=== PATIENT | female | born 1975 | race Caucasian/White ===

== ENCOUNTER 2020-04-13 10:47 | Outpatient (REF) | payer OTHER, SELFPAY ==
--- NOTE | ~2020-04-13 | MM_ITS ---
EXAMINATION: MM SCREENING DIGITAL BREAST TOMOSYNTHESIS, BILATERAL CLINICAL INFORMATION: Screening. Asymptomatic. The lifetime risk of breast cancer based on the Tyrer-Cuzick Model is 7%. COMPARISON: Mammography: 03/17/2019, 11/26/2017, 10/31/2016; targeted left breast ultrasound 03/23/2019. TECHNIQUE: Digital breast tomosynthesis is performed in both the craniocaudal and mediolateral oblique views along with computer-aided detection (CAD). Synthesized 2D images are generated from the tomosynthesis. Additional bilateral CC views are provided. FINDINGS: There are scattered areas of fibroglandular density (ACR BI-RADS breast composition Category b). There are no significant masses, abnormal calcifications, or other abnormalities. The left posterior inferior medial intradermal lesion noted on prior imaging is no longer demonstrated. The axilla and skin contours are unremarkable. MM/MM tomosynthesis screening BI IMPRESSION: No mammographic evidence of malignancy. ASSESSMENT: BI-RADS 1: Negative RECOMMENDATION: Routine annual mammography screening. This patient's information was entered into a reminder system with a target due date for their next mammogram.
== END 2020-04-13 10:48 | disposition home or self-care (01) ==
LOC: HO.MAMMO 10:47
PROVIDERS: PCP Internal Medicine; Visit Provider Internal Medicine
DX: Z12.31 Encounter for screening mammogram for malignant neoplasm of breast (principal)
CPT/HCPCS: 77063; 77067

== ENCOUNTER 2020-05-26 12:44 | Outpatient (REF) | payer OTHER, SELFPAY ==
[2020-05-26 13:43] LABS: Anion Gap 13 (12-20); Blood Urea Nitrogen 13 mg/dL (9-16); Calcium 8.9 mg/dL (8.4-10.2); Carbon Dioxide 24 mmol/L (22-29); Chloride 107 mmol/L (96-108); Estimated Glomerular Filt Rate > 60; Potassium 4.6 mmol/L (3.3-5.1); Sodium 139 mmol/L (135-145)
[2020-05-26 13:53] LABS: Glucose Urine UA NEG (NEG); Leukocyte Esterase Urine NEG (NEG); Nitrite Urine NEG (NEG); Specific Gravity - Urine 1.025 (1.005-1.025); Urine Blood 3+ (NEG); Urine Ketones NEG (NEG); Urine Protein 1+ MG/DL (NEG-TRACE)
[2020-05-26 14:06] LABS: Appearance Urine TURBID; Color Urine YELLOW; Thyroid Stimulating Hormone 0.72 uIU/mL (0.32-4.0)
[2020-05-26 14:25] LABS: Creatinine Urine 234.08 mg/dL; Protein/Creatinine Ratio, Ur 0.09 (<0.2); Total Protein Urine Random 20 mg/dL (<12)
[2020-05-26 14:47] LABS: Mucus Urine 2+ /LPF; Squamous Epithelial Cell Urine 3+ /LPF; WBC Urine 0 /HPF (0-4)
== END 2020-05-26 12:45 | disposition home or self-care (01) ==
LOC: HO.LAB 12:44
PROVIDERS: PCP Internal Medicine; Visit Provider Internal Medicine Hypertension Specialist
DX: I10 Essential (primary) hypertension (principal)
CPT/HCPCS: 36415; 80051; 81001; 82310; 82565; 84156; 84443; 84520

== ENCOUNTER 2020-06-05 19:16 | Emergency (ER) | payer OTHER, SELFPAY ==
--- NOTE | 2020-06-05 | ECG_ITS ---
Test Reason : HEADACHE Blood Pressure : / mmHG Vent. Rate : 071 BPM Atrial Rate : 071 BPM P-R Int : 136 ms QRS Dur : 080 ms QT Int : 386 ms P-R-T Axes : 033 022 034 degrees QTc Int : 419 ms Normal sinus rhythm Normal ECG When compared with ECG of 14-APR-2017 18:59, Nonspecific T wave abnormality no longer evident in Lateral leads Referred By: Generic ED Physician Electronically Signed By:Dg Flores
[2020-06-05 19:41] VITALS: BP 155/73; PULSE 75; RESP 18; TEMP 36.9; O2SAT 98; BMI 35.1
[2020-06-05 23:36] VITALS: BP 135/88; PULSE 62; RESP 16; O2SAT 98
--- NOTE | 2020-06-05 23:39 | ED.GENADULT ---
HPI - General Adult General Chief complaint: General Medical Stated complaint: headache Time Seen by Provider: 06/05/20 22:52 Source: patient Mode of arrival: ambulatory Limitations: no limitations History of Present Illness HPI narrative: Patient history of hypertension well controlled , took Alejandro Alejandro vaccine on 05/28 since today morning patient noticed burning sensation all over the body no weakness no abnormal movements no loss of sensation no history of anxiety Onset (ago): day(s) (1) Related Data Allergies Allergy/AdvReac Type Severity Reaction Status Date / Time morphine [MORPHINE] Allergy Intermediate PAPLITATIONS, Unverified 11/05/19 15:31 increased heart rate Review of Systems Review of Systems: Constitutional : No Weight loss, No Fever, No Chills ENT/Mouth : No sore throat, No Rhinorrhea Eyes: No Eye Pain, No Swelling Cardiovascular : No Chest Pain, no palpitations Respiratory : No Cough, No Sputum, no shortness of breath Gastrointestinal : no Nausea, No Vomiting, No Diarrhea, No abdominal Pain, no black stools Genitourinary : No Dysuria, No Urinary Frequency Musculoskeletal : No joint pain, No Myalgias, No Joint Swelling Skin : No Skin Lesions, No rash Neuro : No Weakness, No Numbness, No Dizziness, No Headache Psych : No Anxiety/Panic, No Depression Heme/Lymph: No Bruising, No Lymphadenopathy Endocrine : No Polyuria, No Polydipsia All other systems reviewed and are negative [facility] Past Medical History Medical History HTN (hypertension) Social History Social History Advance Directives: No Advance Directives Information Provided: No Physical Exam Vital Signs: Vital Signs: Last Vital Signs Temp 98.4 F 06/05/20 19:41 Pulse 62 06/05/20 23:36 Resp 16 06/05/20 23:36 BP 135/88 06/05/20 23:36 Pulse Ox 98 06/05/20 23:36 Body Mass Index 35.1 Appearance: Alert. Oriented X3. No acute distress. Eyes: Pupils equal, round and reactive to light. ENT: Pharynx normal. Neck: Normal inspection. Neck supple. CVS: Normal heart rate and rhythm. Pulses normal. Respiratory: No respiratory distress. Breath sounds normal. Abdomen: Soft and nontender. Bowel sounds are present, no mass palpable, no CVA tenderness Skin: Skin warm and dry. Normal skin color. Normal skin turgor. Extremities: No lower extremity edema. No calf tenderness Neuro: Oriented X 3. No motor deficit. No sensory deficit. No cerebellar signs no abnormal movements Medical Decision Making MDM Narrative Medical decision making narrative: Patient nonspecific paresthesia without any objective findings no motor or sensory loss etiology not very clear possible anxiety patient advised to follow with his Lab Data Lab results reviewed: Yes I reviewed the patient's lab results. Result diagrams: 06/05/20 23:45 06/05/20 23:45 Labs: Lab Results 06/05/20 06/05/20 Range/Units 23:45 23:45 WBC 11.1 H (4.8-10.8) X10*3/uL RBC 4.77 (4.20-5.50) X10*6/uL Hgb 13.2 (12.0-16.0) g/dl Hct 40.6 (37-47) % MCV 85.1 (80-98) fL MCH 27.7 (27.0-33.0) pg MCHC 32.5 (31.0-35.0) g/dl RDW 14.1 (11.0-16.0) % Plt Count 275 (160-400) X10*3/uL MPV 9.3 L (9.4-12.3) fL Immature Gran % (Auto) 0.2 (0.0-0.4) % Neut % (Auto) 56.6 (45-73) % Lymph % (Auto) 37.3 (20-40) % [place] % (Auto) 5.3 (2-11) % Eos % (Auto) 0.2 (0-4) % Baso % (Auto) 0.4 (0-2) % Lymph # (Auto) 4.2 (1.2-4.9) X10*3/uL [place] # (Auto) 0.6 (0.1-1.2) X10*3/uL Eos # (Auto) 0.0 (0.0-0.4) X10*3/uL Baso # (Auto) 0.1 (0.0-0.2) X10*3/uL Abs Immat Gran (auto) 0.02 (0.00-0.03) X10*3/uL Absolute Neuts (auto) 6.3 (2.0-8.3) X10*3/uL Absolute Nucleated RBC 0.000 (0.0-0.012) X10*3/uL Nucleated RBC % (auto) 0.0 (0.0-0.2) /100WBC Sodium 141 (135-145) mmol/L Potassium 4.1 (3.3-5.1) mmol/L Chloride 105 (96-108) mmol/L Carbon Dioxide 26 (22-29) mmol/L Anion Gap 14 (12-20) BUN 14 (9-16) mg/dL Creatinine 0.84 (0.5-1.4) mg/dL Estim Creat Clear Calc 87.6 Estimated GFR > 60 Random Glucose 97 (60-115) mg/dL Calcium 9.7 D (8.4-10.2) mg/dL Magnesium 2.2 (1.6-2.6) mg/dL Total Bilirubin 0.4 (0.0-1.0) mg/dL AST 15 (5-31) U/L ALT 25 (0-31) U/L Alkaline Phosphatase 57 (39-117) U/L Total Protein 7.3 (6.5-8.0) g/dL Albumin 4.7 (3.5-5.0) g/dL Discharge Plan Discharge Clinical Impression: Paresthesia Patient Disposition: Home, Self-Care Instructions: Paresthesia (ED) Additional Instructions: Cause of your paraesthesia is not very clear, your blood blood workup is negative, please follow-up with your PCP
[2020-06-05 23:51] LABS: Basophils Absolute Auto 0.1 X10*3/uL (0.0-0.2); Basophils Percent Auto 0.4 % (0-2); Eosinophils Percent Auto 0.2 % (0-4); Hematocrit 40.6 % (37-47); Hemoglobin 13.2 g/dl (12.0-16.0); Imm Gran Abs Auto 0.02 X10*3/uL (0.00-0.03); Imm Gran Pct Auto 0.2 % (0.0-0.4); Lymphocytes Absolute Auto 4.2 X10*3/uL (1.2-4.9); Lymphocytes Percent Auto 37.3 % (20-40); MANUAL DIFF FLAG NO; Mean Corpuscular HGB Conc 32.5 g/dl (31.0-35.0); Mean Corpuscular Hemoglobin 27.7 pg (27.0-33.0); Mean Corpuscular Volume 85.1 fL (80-98); Mean Platelet Volume 9.3 fL (9.4-12.3); Monocytes Absolute Auto 0.6 X10*3/uL (0.1-1.2); Monocytes Percent Auto 5.3 % (2-11); Neutrophils Absolute Auto 6.3 X10*3/uL (2.0-8.3); Neutrophils Percent Auto 56.6 % (45-73); Platelet Count 275 X10*3/uL (160-400); Red Blood Count 4.77 X10*6/uL (4.20-5.50); Red Cell Distribution Width 14.1 % (11.0-16.0); White Blood Count 11.1 X10*3/uL (4.8-10.8)
[2020-06-06 00:25] LABS: Alanine Aminotransferase 25 U/L (0-31); Albumin Level 4.7 g/dL (3.5-5.0); Alkaline Phosphatase 57 U/L (39-117); Anion Gap 14 (12-20); Aspartate Amino Transferase 15 U/L (5-31); Bilirubin Total 0.4 mg/dL (0.0-1.0); Blood Urea Nitrogen 14 mg/dL (9-16); Calcium 9.7 mg/dL (8.4-10.2); Carbon Dioxide 26 mmol/L (22-29); Chloride 105 mmol/L (96-108); Creatinine Clr Calc Pharmacy 87.6; Estimated Glomerular Filt Rate > 60; Glucose Random 97 mg/dL (60-115); Magnesium 2.2 mg/dL (1.6-2.6); Potassium 4.1 mmol/L (3.3-5.1); Sodium 141 mmol/L (135-145); Total Protein 7.3 g/dL (6.5-8.0)
== END 2020-06-06 01:35 | disposition home or self-care (01) ==
PROVIDERS: Emergency Provider Internal Medicine; PCP Internal Medicine
DX: R20.2 Paresthesia of skin (principal); I10 Essential (primary) hypertension
CPT/HCPCS: 36415; 80053; 83735; 85025; 93005; 99283; 99284

== ENCOUNTER 2020-09-08 10:18 | Outpatient (REF) | payer OTHER, SELFPAY ==
--- NOTE | ~2020-09-08 | XR_ITS ---
EXAMINATION: XR KNEE, RIGHT CLINICAL INFORMATION: Right knee pain COMPARISON: 09/14/2010 TECHNIQUE: Four views of the right knee. This includes AP upright view. FINDINGS: No fracture or subluxation. Compartmental joint spaces are maintained. Enthesophyte formation of the patella. No joint effusion. The soft tissues are unremarkable. XR/XR knee RT 4V IMPRESSION: Patellar enthesophyte. Otherwise unremarkable appearance of the knee.
== END 2020-09-08 10:19 | disposition home or self-care (01) ==
LOC: HO.XRAY 10:18
PROVIDERS: PCP Internal Medicine; Visit Provider Internal Medicine
DX: M25.561 Pain in right knee (principal)
CPT/HCPCS: 73564

== ENCOUNTER 2020-11-02 12:58 | Outpatient (RCR) | payer OTHER, SELFPAY | END 2021-01-03 08:27 | disposition home or self-care (01) | LOC: HO.PT 12:58 | PROVIDERS: PCP Internal Medicine; Visit Provider Internal Medicine | DX: M25.561 Pain in right knee (principal) | CPT/HCPCS: 97110; 97162 ==

== ENCOUNTER → 2020-11-04 13:49 | Outpatient (BNVA) | payer OTHER, SELFPAY | PROVIDERS: Visit Provider Physician Assistant | DX: M22.2X1 Patellofemoral disorders, right knee (principal) | CPT/HCPCS: 20610; 99202; J1040 ==

== ENCOUNTER 2020-12-08 21:53 | Emergency (ER) | payer OTHER, SELFPAY ==
[2020-12-08 22:02] VITALS: BP 133/89; PULSE 75; RESP 16; TEMP 36.4; O2SAT 99; BMI 35.3
--- NOTE | 2020-12-08 22:06 | ECG_ITS ---
Test Reason : CHEST PAIN Blood Pressure : / mmHG Vent. Rate : 070 BPM Atrial Rate : 070 BPM P-R Int : 140 ms QRS Dur : 084 ms QT Int : 398 ms P-R-T Axes : 032 014 016 degrees QTc Int : 429 ms Normal sinus rhythm Normal ECG No significant changes seen Referred By: Generic ED Physician Electronically Signed By:JACEY REILLY MD
[2020-12-08 22:30] LABS: COVID-19 Test Negative (Negative)
--- NOTE | 2020-12-08 22:42 | PC.NURSE ---
patient A+Ox4. NSR on tele. VSS. Resting safely.
--- NOTE | 2020-12-08 22:44 | ED_ITS ---
HPI - Chest Pain General Chief Complaint: Chest Pain Stated Complaint: Chest pressure Time Seen by Provider: 12/08/20 22:44 Source: patient Mode of arrival: ambulatory Limitations: no limitations History of Present Illness HPI narrative: Patient has significant history of hypertension under lot of stress lately been having left-sided chest pain for last 3 days comes and goes feel like pressure increased on palpation made comes pain last for few minutes no shortness of breath no dizziness no diaphoresis no fever or chills Related Data Home Medications Medication Instructions Recorded Confirmed lisinopril 2.5 mg tablet 2.5 mg PO DAILY 11/04/20 metoprolol tartrate 25 mg tablet 12.5 mg PO BID 11/04/20 Previous Rx's Medication Instructions Recorded naproxen 500 mg tablet 500 mg PO BID PRN 30 Days #60 tab 11/10/20 ibuprofen 600 mg tablet 600 mg PO Q6H PRN #20 tab 12/08/20 Allergies Allergy/AdvReac Type Severity Reaction Status Date / Time morphine [MORPHINE] Allergy Intermediate PAPLITATIONS, Verified 11/04/20 13:52 increased heart rate Review of Systems Review of Systems: Yes all other systems are reviewed and are negative [facility] Past Medical History Medical History HTN (hypertension) Social History Social History Advance Directives: No Advance Directives Information Provided: No Patient : No Current occupational status: unemployed 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 Oriented X3. No acute distress. ENT: Pharynx normal. Oral Mucosa moist Neck: Normal inspection. Neck supple. CVS: Normal heart rate and rhythm. Pulses normal. Left 2nd intercostal space tenderness Respiratory: No respiratory distress. Equal air entry bilateral, no wheezing/rales/rhonchi Abdomen: Soft and nontender. Bowel sounds are present, no mass palpable, no CVA tenderness Skin: Skin warm and dry. Normal skin color. Normal skin turgor. Extremities: No lower extremity edema. No calf tenderness Neuro: Oriented X 3. MDM - Chest Pain Lab Data Attestation: I reviewed the patient's lab results. Result diagrams: 12/08/20 22:55 12/08/20 22:55 Labs: Lab Results 12/08/20 12/08/20 12/08/20 Range/Units 22:10 22:55 22:55 WBC 9.7 (4.8-10.8) X10*3/uL RBC 4.24 (4.20-5.50) X10*6/uL Hgb 12.1 (12.0-16.0) g/dl Hct 35.0 L (37-47) % MCV 82.5 (80-98) fL MCH 28.5 (27.0-33.0) pg MCHC 34.6 (31.0-35.0) g/dl RDW 14.6 (11.0-16.0) % Plt Count 278 (160-400) X10*3/uL MPV 9.2 L (9.4-12.3) fL Immature Gran % (Auto) 0.2 (0.0-0.4) % Neut % (Auto) 59.1 (45-73) % Lymph % (Auto) 33.9 (20-40) % [place] % (Auto) 6.3 (2-11) % Eos % (Auto) 0.0 (0-4) % Baso % (Auto) 0.5 (0-2) % Lymph # (Auto) 3.3 (1.2-4.9) X10*3/uL [place] # (Auto) 0.6 (0.1-1.2) X10*3/uL Eos # (Auto) 0.0 (0.0-0.4) X10*3/uL Baso # (Auto) 0.1 (0.0-0.2) X10*3/uL Abs Immat Gran (auto) 0.02 (0.00-0.03) X10*3/uL Absolute Neuts (auto) 5.7 (2.0-8.3) X10*3/uL Absolute Nucleated RBC 0.000 (0.0-0.012) X10*3/uL Nucleated RBC % (auto) 0.0 (0.0-0.2) /100WBC Sodium 139 (135-145) mmol/L Potassium 3.7 (3.3-5.1) mmol/L Chloride 110 H (96-108) mmol/L Carbon Dioxide 19 L (22-29) mmol/L Anion Gap 14 (12-20) BUN 14 (9-16) mg/dL Creatinine 0.80 (0.5-1.4) mg/dL Estim Creat Clear Calc 92.1 Estimated GFR > 60 Random Glucose 91 (60-115) mg/dL Calcium 9.0 D (8.4-10.2) mg/dL Troponin I High Sens (<3.5-17.0) ng/L COVID-19 ([facility]) Negative (Negative) COVID-19 Clin Com See Note 12/08/20 Range/Units 22:55 WBC (4.8-10.8) X10*3/uL RBC (4.20-5.50) X10*6/uL Hgb (12.0-16.0) g/dl Hct (37-47) % MCV (80-98) fL MCH (27.0-33.0) pg MCHC (31.0-35.0) g/dl RDW (11.0-16.0) % Plt Count (160-400) X10*3/uL MPV (9.4-12.3) fL Immature Gran % (Auto) (0.0-0.4) % Neut % (Auto) (45-73) % Lymph % (Auto) (20-40) % [place] % (Auto) (2-11) % Eos % (Auto) (0-4) % Baso % (Auto) (0-2) % Lymph # (Auto) (1.2-4.9) X10*3/uL [place] # (Auto) (0.1-1.2) X10*3/uL Eos # (Auto) (0.0-0.4) X10*3/uL Baso # (Auto) (0.0-0.2) X10*3/uL Abs Immat Gran (auto) (0.00-0.03) X10*3/uL Absolute Neuts (auto) (2.0-8.3) X10*3/uL Absolute Nucleated RBC (0.0-0.012) X10*3/uL Nucleated RBC % (auto) (0.0-0.2) /100WBC Sodium (135-145) mmol/L Potassium (3.3-5.1) mmol/L Chloride (96-108) mmol/L Carbon Dioxide (22-29) mmol/L Anion Gap (12-20) BUN (9-16) mg/dL Creatinine (0.5-1.4) mg/dL Estim Creat Clear Calc Estimated GFR Random Glucose (60-115) mg/dL Calcium (8.4-10.2) mg/dL Troponin I High Sens < 3.5 (<3.5-17.0) ng/L COVID-19 ([facility]) (Negative) COVID-19 Clin Com ECG Data ECG #1: Attestation: I personally reviewed and interpreted this ECG as follows: Interpretation: Normal sinus rhythm heart rate 71 beats per minute no acute ST T wave changes no acute ischemia Discharge Plan Discharge Clinical Impression: Costalchondritis, Anxiety Patient Disposition: Home, Self-Care Instructions: Costochondritis (ED), Anxiety (ED) Additional Instructions: Take pain Medication as advised continue anxiety medication at night Prescriptions: New ibuprofen 600 mg tablet 600 mg PO Q6H PRN (Reason: pain) Qty: 20 RF: 0 No Action naproxen 500 mg tablet 500 mg PO BID PRN (Reason: pain) 30 Days Qty: 60 RF: 0 Interventions: ED Discharge Assessment Last Done: 12/08/20 23:30 Discharge Date/Time: 12/08/20 23:30
[2020-12-08 23:01] LABS: MANUAL DIFF FLAG NO
[2020-12-08 23:03] LABS: Basophils Absolute Auto 0.1 X10*3/uL (0.0-0.2); Basophils Percent Auto 0.5 % (0-2); Hemoglobin 12.1 g/dl (12.0-16.0); Imm Gran Abs Auto 0.02 X10*3/uL (0.00-0.03); Imm Gran Pct Auto 0.2 % (0.0-0.4); Lymphocytes Absolute Auto 3.3 X10*3/uL (1.2-4.9); Lymphocytes Percent Auto 33.9 % (20-40); Mean Corpuscular HGB Conc 34.6 g/dl (31.0-35.0); Mean Corpuscular Hemoglobin 28.5 pg (27.0-33.0); Mean Corpuscular Volume 82.5 fL (80-98); Mean Platelet Volume 9.2 fL (9.4-12.3); Monocytes Absolute Auto 0.6 X10*3/uL (0.1-1.2); Monocytes Percent Auto 6.3 % (2-11); Neutrophils Absolute Auto 5.7 X10*3/uL (2.0-8.3); Neutrophils Percent Auto 59.1 % (45-73); Platelet Count 278 X10*3/uL (160-400); Red Blood Count 4.24 X10*6/uL (4.20-5.50); Red Cell Distribution Width 14.6 % (11.0-16.0); White Blood Count 9.7 X10*3/uL (4.8-10.8)
[2020-12-08 23:15] LABS: Anion Gap 14 (12-20); Blood Urea Nitrogen 14 mg/dL (9-16); Carbon Dioxide 19 mmol/L (22-29); Chloride 110 mmol/L (96-108); Creatinine Clr Calc Pharmacy 92.1; Estimated Glomerular Filt Rate > 60; Glucose Random 91 mg/dL (60-115); Potassium 3.7 mmol/L (3.3-5.1); Sodium 139 mmol/L (135-145)
[2020-12-08 23:23] LABS: Troponin-I High Sensitivity < 3.5 ng/L (<3.5-17.0)
[2020-12-08] MEDS: Ibuprofen 600 MG TABLET PO (23:49)
== END 2020-12-08 23:30 | disposition home or self-care (01) ==
PROVIDERS: Emergency Provider Internal Medicine; PCP Internal Medicine
DX: M94.0 Chondrocostal junction syndrome [Tietze] (principal); F41.1 Generalized anxiety disorder; F43.0 Acute stress reaction; R07.89 Other chest pain; I10 Essential (primary) hypertension; Z20.822 Contact with and (suspected) exposure to COVID-19; Z79.899 Other long term (current) drug therapy
CPT/HCPCS: 36415; 80048; 84484; 85025; 87635; 93005; 99283

== ENCOUNTER 2021-04-07 09:36 | Outpatient (REF) | payer OTHER, SELFPAY ==
--- NOTE | ~2021-04-07 | CT_ITS ---
EXAMINATION: CT HEAD WITHOUT CONTRAST CLINICAL INFORMATION: Headache COMPARISON: Previous head CT May 2015 TECHNIQUE: Contiguous axial imaging was performed from the skull base to vertex without intravenous administration of contrast. This CT examination was performed using dose optimization techniques as appropriate, variously including the following: *Automated exposure control *Adjustment of mA and/or kV according to patient size (this includes techniques or standardized protocols for targeted exams where dose is matched to indication/reason for exam; i.e. extremities or head) *Use of iterative reconstruction technique DLP: 7-0 mGy-cm FINDINGS: There is no evidence of acute intracranial hemorrhage or territorial infarction. No abnormal mass effect or midline shift is seen. Isaac to white matter differentiation is well preserved. No extra-axial fluid collections are identified. The ventricles are normal in size. There is no abnormal attenuation within the brain parenchyma. The osseous structures and soft tissues are normal. The mastoid air cells and visualized portions of the paranasal sinuses are well aerated. CT/CT head/brain wo con IMPRESSION: Unremarkable exam..
== END 2021-04-07 09:37 | disposition home or self-care (01) ==
LOC: HO.CT 09:36
PROVIDERS: PCP Internal Medicine; Visit Provider Internal Medicine
DX: G44.89 Other headache syndrome (principal)
CPT/HCPCS: 70450

== ENCOUNTER 2021-07-25 18:49 | Emergency (ER) | payer OTHER, SELFPAY ==
--- NOTE | ~2021-07-25 | US_ITS ---
EXAMINATION: US ABDOMEN LIMITED CLINICAL INFORMATION: Right upper quadrant pain. COMPARISON: Previous renal ultrasound May [address] of the abdomen and pelvis March 2016. TECHNIQUE: Real-time imaging of the right upper quadrant abdominal viscera. FINDINGS: PANCREAS: Not well visualized. LIVER: The liver is normal in size. The liver contour is normal. Parenchymal echogenicity is increased. No focal hepatic lesion. There is no intrahepatic biliary duct dilatation seen. GALLBLADDER: Normal. The gallbladder is physiologically distended without evidence of stones, sludge, polyps, wall thickening or pericholecystic fluid. COMMON BILE DUCT: Normal in caliber measuring 0.4 cm in diameter. RIGHT KIDNEY: There is a 0.7 x 0.6 x 0.7 cm echogenic lesion in the cortex of the upper pole of the right kidney questionable for an angiomyolipoma. No hydronephrosis. No renal calculi or focal parenchymal lesions. Previously identified right renal stones are not appreciated. The kidney measures 11 cm in maximum dimension. FREE FLUID: None. US/US abdomen limited IMPRESSION: Echogenic liver. Normal-appearing gallbladder. A 7 mm echogenic lesion in the upper pole of the right kidney questionable for an angiomyolipoma. Previously identified right renal stones are not appreciated.
[2021-07-25 18:54] VITALS: BP 162/98; PULSE 99; O2SAT 98
[2021-07-25 18:55] VITALS: BP 125/73; PULSE 76; RESP 16; TEMP 36.7; O2SAT 100; BMI 36.0
--- NOTE | 2021-07-25 21:04 | ED.ABDPAIN ---
HPI - Abdominal Pain General Chief Complaint: Abdominal Pain Stated Complaint: Abd Pain Time Seen by Provider: 07/25/21 21:03 Source: patient Mode of arrival: ambulatory Limitations: no limitations History of Present Illness MD elicited complaint: abdominal pain Pertinent past history: none Onset (ago): hour(s) (couple) Pain Consistency: intermittent Location: diffuse Severity: moderate Quality: cramping Radiation: none Migration to: no migration Exacerbating factors: eating Relieving factors: nothing Context: possible food poisoning (started after eating gizzards - chicken cooked at home) Associated symptoms: nausea, vomiting and diarrhea Related Data Home Medications Medication Instructions Recorded Confirmed lisinopril 2.5 mg tablet 2.5 mg PO DAILY 11/04/20 metoprolol tartrate 25 mg tablet 12.5 mg PO BID 11/04/20 Previous Rx's Medication Instructions Recorded naproxen 500 mg tablet 500 mg PO BID PRN 30 Days #60 tab 11/10/20 ibuprofen 600 mg tablet 600 mg PO Q6H PRN #20 tab 12/08/20 ondansetron 4 mg disintegrating 4 mg PO Q8H PRN #20 tab 07/25/21 tablet Allergies Allergy/AdvReac Type Severity Reaction Status Date / Time morphine [MORPHINE] Allergy Intermediate PAPLITATIONS, Verified 11/04/20 13:52 increased heart rate Review of Systems Review of Systems Constitutional : No Weight loss, No Fever, No Chills ENT/Mouth : No sore throat, No Rhinorrhea Eyes: No Swelling, No Redness Cardiovascular : No Chest Pain, No SOB, NoEdema Respiratory : No Cough, No Sputum, No Wheezing Gastrointestinal : Positive Nausea, Positive Vomiting, positive Diarrhea, positive abdominal Pain, No Hematochezia, No Melena Genitourinary : No Dysuria, No Urinary Frequency, No Hematuria, No Urgency Musculoskeletal : No joint pain, No Myalgias, No Joint Swelling Skin : No Skin Lesions, No rash Neuro : No Weakness, No Numbness, No Dizziness, No Headache Psych : No Anxiety/Panic, No Depression Heme/Lymph: No Bruising, No Lymphadenopathy Endocrine : No Polyuria, No Polydipsia All other systems reviewed and are negative. [facility] Past Medical History Attestation statement: The following information was validated with the patient. 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 Oriented X3. No acute distress. Eyes: Pupils equal, round and reactive to light. ENT: Pharynx normal. Neck: Normal inspection. Neck supple. CVS: Normal heart rate and rhythm. Pulses normal. Respiratory: No respiratory distress. Breath sounds normal. Abdomen: Soft and moderate ttp in RUQ no rebound or guarding Skin: Skin warm and dry. Normal skin color. Normal skin turgor. Extremities: No lower extremity edema. No calf ttp Neuro: Oriented X 3. No motor deficit. No sensory deficit. Course Course Course Narrative: feels much better can tolerate PO stable for DC MDM - Abdominal Pain MDM Narrative Medical decision making narrative: 46 yo female with hx of HTN here with c/o RUQ pain n/v/d after eating chicken gizzards at home will need labs, IVF, IV toradol/pepcid. US to evaluate gallbladder. Dispo per results and findings. Lab Data Result diagrams: 07/25/21 21:14 07/25/21 21:14 Labs: Lab Results 07/25/21 07/25/21 07/25/21 Range/Units 21:14 21:14 21:14 WBC 10.7 (4.8-10.8) X10*3/uL RBC 4.54 (4.20-5.50) X10*6/uL Hgb 12.7 (12.0-16.0) g/dl Hct 37.7 (37.0-47.0) % MCV 83.0 (80.0-98.0) fL MCH 28.0 (27.0-33.0) pg MCHC 33.7 (31.0-35.0) g/dl RDW 14.2 (11.0-16.0) % Plt Count 289 (160-400) X10*3/uL MPV 9.3 L (9.4-12.3) fL Immature Gran % (Auto) 0.3 (0.0-0.4) % Neut % (Auto) 76.0 H (45-73) % Lymph % (Auto) 19.1 L (20-40) % [place] % (Auto) 4.2 (2-11) % Eos % (Auto) 0.0 (0-4) % Baso % (Auto) 0.4 (0-2) % Lymph # (Auto) 2.0 (1.2-4.9) X10*3/uL [place] # (Auto) 0.5 (0.1-1.2) X10*3/uL Eos # (Auto) 0.0 (0.0-0.4) X10*3/uL Baso # (Auto) 0.0 (0.0-0.2) X10*3/uL Abs Immat Gran (auto) 0.03 (0.00-0.03) X10*3/uL Absolute Neuts (auto) 8.1 (2.0-8.3) x10*3/uL Absolute Nucleated RBC 0.000 (0.0-0.012) X10*3/uL Nucleated RBC % (auto) 0.0 (0.0-0.2) /100WBC Sodium 139 (135-145) mmol/L Potassium 4.4 (3.3-5.1) mmol/L Chloride 107 (96-108) mmol/L Carbon Dioxide 22 (22-29) mmol/L Anion Gap 14 (12-20) BUN 12 (9-16) mg/dL Creatinine 0.81 (0.5-1.4) mg/dL Estim Creat Clear Calc 91.0 Estimated GFR > 60 Random Glucose 127 H (60-115) mg/dL Calcium 9.3 (8.4-10.2) mg/dL Magnesium 2.4 (1.6-2.6) mg/dL Total Bilirubin 0.2 (0.0-1.0) mg/dL Direct Bilirubin < 0.2 (0.0-0.5) mg/dL AST 14 (5-31) U/L ALT 15 (0-31) U/L Alkaline Phosphatase 57 (39-117) U/L Total Protein 7.2 (6.5-8.0) g/dL Albumin 4.5 (3.5-5.0) g/dL Lipase 23 (8-78) U/L COVID-19 ([facility]) Negative (Negative) COVID-19 Clin Com See Note Discharge Plan Discharge Clinical Impression: Abdominal pain Qualifiers: Abdominal location: right upper quadrant Qualified Code(s): R10.11 - Right upper quadrant pain Vomiting Qualifiers: Vomiting type: unspecified Nausea presence: with nausea Qualified Code(s): R11.2 - Nausea with vomiting, unspecified Patient Disposition: Home, Self-Care Instructions: Acute Nausea and Vomiting (ED), Abdominal Pain (ED) Additional Instructions: return to ED for any worsening symptoms or concerns bland diet for the next 24 hours no spicy, greasy foods US findings: PANCREAS: Not well visualized. LIVER: The liver is normal in size. The liver contour is normal. Parenchymal echogenicity is increased. No focal hepatic lesion. There is no intrahepatic biliary duct dilatation seen. GALLBLADDER: Normal. The gallbladder is physiologically distended without evidence of stones, sludge, polyps, wall thickening or pericholecystic fluid. COMMON BILE DUCT: Normal in caliber measuring 0.4 cm in diameter. RIGHT KIDNEY: There is a 0.7 x 0.6 x 0.7 cm echogenic lesion in the cortex of the upper pole of the right kidney questionable for an angiomyolipoma. No hydronephrosis. No renal calculi or focal parenchymal lesions. Previously identified right renal stones are not appreciated. The kidney measures 11 cm in maximum dimension. FREE FLUID: None. IMPRESSION: Echogenic liver. Normal-appearing gallbladder. A 7 mm echogenic lesion in the upper pole of the right kidney questionable for an angiomyolipoma (BENIGN). Previously identified right renal stones are not appreciated. this can be followed by your doctor Prescriptions: New ondansetron 4 mg tablet,disintegrating 4 mg PO Q8H PRN (Reason: nausea and vomiting) Qty: 20 0RF No Action naproxen 500 mg tablet 500 mg PO BID PRN (Reason: pain) 30 Days Qty: 60 0RF ibuprofen 600 mg tablet 600 mg PO Q6H PRN (Reason: pain) Qty: 20 0RF Stand Alone Forms: Work/School Release
[2021-07-25 21:18] LABS: MANUAL DIFF FLAG NO
[2021-07-25 21:20] LABS: Basophils Percent Auto 0.4 % (0-2); Hematocrit 37.7 % (37.0-47.0); Hemoglobin 12.7 g/dl (12.0-16.0); Imm Gran Abs Auto 0.03 X10*3/uL (0.00-0.03); Imm Gran Pct Auto 0.3 % (0.0-0.4); Lymphocytes Percent Auto 19.1 % (20-40); Mean Corpuscular HGB Conc 33.7 g/dl (31.0-35.0); Mean Platelet Volume 9.3 fL (9.4-12.3); Monocytes Absolute Auto 0.5 X10*3/uL (0.1-1.2); Monocytes Percent Auto 4.2 % (2-11); Neutrophils Absolute Auto 8.1 x10*3/uL (2.0-8.3); Platelet Count 289 X10*3/uL (160-400); Red Blood Count 4.54 X10*6/uL (4.20-5.50); Red Cell Distribution Width 14.2 % (11.0-16.0); White Blood Count 10.7 X10*3/uL (4.8-10.8)
[2021-07-25] MEDS: ondansetron HCL 4 MG/2 ML VIAL IVPUSH (21:21)
[2021-07-25] MEDS: Famotidine/PF 20 MG/2 ML VIAL IVPUSH (21:21)
[2021-07-25] MEDS: Ketorolac Tromethamine 15 MG/ML VIAL 30 MG IVPUSH (21:21)
[2021-07-25] MEDS: 0.9 % Sodium Chloride 1,000 ML 999 ML IVCONT (21:22)
[2021-07-25 21:34] LABS: COVID-19 Test Negative (Negative)
[2021-07-25 21:37] LABS: Alanine Aminotransferase 15 U/L (0-31); Albumin Level 4.5 g/dL (3.5-5.0); Alkaline Phosphatase 57 U/L (39-117); Anion Gap 14 (12-20); Aspartate Amino Transferase 14 U/L (5-31); Bilirubin Direct < 0.2 mg/dL (0.0-0.5); Bilirubin Total 0.2 mg/dL (0.0-1.0); Blood Urea Nitrogen 12 mg/dL (9-16); Calcium 9.3 mg/dL (8.4-10.2); Carbon Dioxide 22 mmol/L (22-29); Chloride 107 mmol/L (96-108); Estimated Glomerular Filt Rate > 60; Glucose Random 127 mg/dL (60-115); Lipase 23 U/L (8-78); Magnesium 2.4 mg/dL (1.6-2.6); Potassium 4.4 mmol/L (3.3-5.1); Sodium 139 mmol/L (135-145); Total Protein 7.2 g/dL (6.5-8.0)
== END 2021-07-25 23:32 | disposition home or self-care (01) ==
PROVIDERS: Emergency Provider Emergency Medicine
DX: R10.11 Right upper quadrant pain (principal); R11.2 Nausea with vomiting, unspecified; Z20.822 Contact with and (suspected) exposure to COVID-19; I10 Essential (primary) hypertension
CPT/HCPCS: 76705; 80048; 80076; 83690; 83735; 85025; 87635; 96361; 96374; 96375; 99283; 99284; J1885; J2405

== ENCOUNTER 2021-08-03 12:42 | Outpatient (REF) | payer OTHER, SELFPAY ==
--- NOTE | ~2021-08-03 | MM_ITS ---
EXAMINATION: MM DIAGNOSTIC DIGITAL BREAST TOMOSYNTHESIS, BILATERAL US DIAGNOSTIC ULTRASOUND BREAST, LEFT CLINICAL INFORMATION: Due for yearly. Waxing and waning nodule posterior inferior medial left breast. Prior history sebaceous cyst. No erythema or pain. The lifetime risk of breast cancer based on the Tyrer-Cuzick Model is 7%. COMPARISON: Mammography: 04/13/2020, 03/17/2019, 11/26/2017; targeted ultrasound left breast 03/23/2019. TECHNIQUE: Digital breast tomosynthesis is performed in both the craniocaudal and mediolateral oblique views along with computer-aided detection (CAD). Synthesized 2D images are generated from the tomosynthesis. Symptom marker placed at site of palpable concern posterior inferior medial left breast. Ultrasound left breast is targeted to the area of palpable concern. Grayscale imaging and color Doppler are performed without and with harmonics. FINDINGS: There are scattered areas of fibroglandular density (ACR BI-RADS breast composition Category b). Parenchymal pattern is similar to prior studies. There is no interval mass or architectural abnormality or abnormal calcifications. No skin thickening or coarsening of the Luca's ligaments. The axilla are unremarkable. Ultrasound demonstrates a discoid shaped intradermal hypoechoic lesion at site of palpable concern with overall dimensions 2.0 x 0.3 x 1.8 cm. There is no subdermal extension. Mild increased vascularity is seen around the lesion. Prior ultrasound showed smaller thicker intradermal lesion at this location measuring 1.0 x 0.6 x 0.9 cm on ultrasound 03/23/2019. Results are discussed with the patient at time of visit. Patient notes no pain or erythema or cutaneous discharge. The palpable nodule has waxed and waned in size, substantially larger in the past year. Consideration of surgical consult for excision was discussed. MM/MM tomosynthesis diagnostic BI IMPRESSION: Bilateral: -No mammographic evidence of malignancy. Left: -Ultrasound shows intradermal lesion at site of palpable concern posterior inferior medial left breast measuring 0.3 cm thickness by 2 cm across. Prior measurements 1.0 x 0.6 x 0.9 cm on ultrasound 03/23/2019. Mild surrounding hyperemia again noted. Findings suggest mildly inflamed sebaceous cyst. ASSESSMENT: BI-RADS 2: Benign RECOMMENDATION: 1. Patient's waxing and waning intradermal lesion may be managed based on the clinical impression. Surgical consult may be considered for excision. 2. Otherwise, routine annual screening mammography. This patient's information was entered into a reminder system with a target due date for their next mammogram.
== END 2021-08-03 12:43 | disposition home or self-care (01) ==
LOC: HO.MAMMO 12:42
PROVIDERS: Visit Provider Internal Medicine
DX: N60.02 Solitary cyst of left breast (principal)
CPT/HCPCS: 76642; 77062; 77066

== ENCOUNTER 2022-04-18 07:26 | Outpatient (RCR) | payer OTHER, SELFPAY | END 2022-06-04 12:58 | disposition home or self-care (01) | LOC: HO.WCC 07:26 | PROVIDERS: PCP Internal Medicine; Visit Provider Surgery | DX: S81.812D Laceration without foreign body, left lower leg, subsequent encounter (principal) | CPT/HCPCS: 11042; 11043; 97597; 99212 ==

== ENCOUNTER 2022-07-16 07:22 | Inpatient (IN) | payer OTHER, SELFPAY ==
--- NOTE | ~2022-07-16 | FL_ITS ---
EXAMINATION: XR FLUOROSCOPY WITH IMAGES CLINICAL INFORMATION: Obstructive radiopaque right distal ureteral stone. COMPARISON: CT abdomen pelvis 07/16/2022. TECHNIQUE: Fluoroscopy Supervised By: Dr. Hernandez. Fluoroscopy Time: 20.2 seconds. Cumulative Dose: 8.02 mGy. Images: 5. FINDINGS: On initial image contrast opacifies significant dilated right kidney pelvis and ureter with mild ureteral tortuosity. Subsequent image reveals a guidewire in the right kidney pelvis followed by a internal ureteral stent in good position. FL/FL guidance in OR IMPRESSION: Fluoroscopy was provided to referring physician for right ureteral stent placement.
--- NOTE | ~2022-07-16 | CT_ITS ---
EXAMINATION: CT ABDOMEN AND PELVIS WITHOUT CONTRAST CLINICAL INFORMATION: Right flank pain, dysuria. COMPARISON: CT abdomen 04/16/2016 . Ultrasound abdomen 07/25/2021 TECHNIQUE: Multidetector volumetric imaging was performed from the superior aspect of the liver through the pubic symphysis. Sagittal and coronal reformatted images were obtained on the technologist's workstation. This CT examination was performed using dose optimization techniques as appropriate, variously including the following: *Automated exposure control *Adjustment of mA and/or kV according to patient size (this includes techniques or standardized protocols for targeted exams where dose is matched to indication/reason for exam; i.e. extremities or head) *Use of iterative reconstruction technique DLP: 681 mGy-cm FINDINGS: LUNG BASES: The visualized lung bases are unremarkable. LIVER, GALLBLADDER, AND BILIARY TREE: The liver is normal in shape, and attenuation. Right lobe spans 19.8 cm craniocaudal. No focal hepatic lesion or biliary ductal dilatation is present. The gallbladder is unremarkable with no evidence of radiopaque gallstones, gallbladder wall thickening, or obvious pericholecystic inflammatory changes. PANCREAS: Unremarkable. SPLEEN: Unremarkable. ADRENAL GLANDS: Unremarkable. KIDNEYS AND URETERS: Severe right hydroureteronephrosis. There is a 12 mm calculus in the distal right ureter. There are 2 small, 2 mm sized calcifications more distally,, which could represent additional small ureteral calculi versus subjacent calcifications. No renal calculi identified. Mild right perinephric stranding. Left renal calculi. 2 mm nonobstructing calculus upper pole; 10 mm obstructing calculus in the lower pole. BLADDER: Bladder is partially distended. Urinary bladder wall thickening, could be related to lack of distention versus cystitis. GASTROINTESTINAL TRACT: Nondistended stomach. No small or large bowel obstruction. Colonic diverticulosis without evidence of diverticulitis. Normal appendix. No free fluid. No free air. ABDOMINAL WALL: No significant hernia is appreciated. LYMPH NODES: No pathologically enlarged nodes are identified. VASCULAR: Scattered atherosclerotic vascular calcification. PELVIC VISCERA: Anteverted uterus. 3.3 cm left ovarian cyst/prominent follicle. Hounsfield measurements 12. OSSEOUS STRUCTURES: Unremarkable. CT/CT abdomen pelvis wo IV con IMPRESSION: 1. Severe right hydroureteronephrosis. 12 mm calculus in the distal right ureter. Question additional small calculi versus subjacent calcifications distal to this. 2. Left renal nonobstructing calculi. 3. Urinary bladder wall prominence, could be due to lack of distention versus cystitis. 4. Colonic diverticulosis without diverticulitis. 5. Hepatomegaly. 6. Additional findings and details as above. Fleischner guidelines were followed.
[2022-07-16 07:24] VITALS: BP 137/108; PULSE 99; RESP 18; TEMP 36.9; O2SAT 99; BMI 36.2
--- NOTE | 2022-07-16 07:44 | MHC.EDTECH ---
Labs collected and sent
[2022-07-16 07:46] LABS: MANUAL DIFF FLAG NO
[2022-07-16 07:53] LABS: Basophils Absolute Auto 0.1 X10*3/uL (0.0-0.2); Basophils Percent Auto 0.5 % (0-2); Eosinophils Percent Auto 0.1 % (0-4); Hematocrit 38.4 % (37.0-47.0); Hemoglobin 12.9 g/dl (12.0-16.0); Imm Gran Abs Auto 0.06 X10*3/uL (0.00-0.03); Imm Gran Pct Auto 0.4 % (0.0-0.4); Lymphocytes Absolute Auto 2.5 X10*3/uL (1.2-4.9); Lymphocytes Percent Auto 15.5 % (20-40); Mean Corpuscular HGB Conc 33.6 g/dl (31.0-35.0); Mean Corpuscular Hemoglobin 27.9 pg (27.0-33.0); Mean Corpuscular Volume 82.9 fL (80.0-98.0); Mean Platelet Volume 9.6 fL (9.4-12.3); Monocytes Absolute Auto 1.1 X10*3/uL (0.1-1.2); Monocytes Percent Auto 7.2 % (2-11); Neutrophils Absolute Auto 12.1 x10*3/uL (2.0-8.3); Neutrophils Percent Auto 76.3 % (45-73); Platelet Count 308 X10*3/uL (160-400); Red Blood Count 4.63 X10*6/uL (4.20-5.50); Red Cell Distribution Width 14.4 % (11.0-16.0); White Blood Count 15.8 X10*3/uL (4.8-10.8)
--- NOTE | 2022-07-16 07:53 | ED.FEMALEGU ---
HPI - Female Genitourinary General Chief complaint: Urogenital-Female Stated complaint: Pain when urinating/R flank pain Time Seen by Provider: 07/16/22 07:32 Source: patient Mode of arrival: ambulatory Limitations: no limitations History of Present Illness HPI Narrative: 47-year-old female with history of hypertension presents to the ER for evaluation of pain with urination along with 10/10 right-sided flank pain that started yesterday. She states the pain has been constant in the right flank. It does not radiate. She reports increased bladder pressure and pain with urination each time she voids. She states her urine has been darker in color. She denies any nausea, vomiting, fever, chills. No vaginal discharge. She is unsure if she has had a kidney stone in the past, if she did was several years ago and does not recall. MD elicited complaint: dysuria and flank pain Onset (ago): day(s) (1) Location of symptoms: urethra and flank Severity: severe Severity scale (1-10): 10 Quality of pain: sharp Consistency: constant Vaginal discharge: none Vaginal bleeding: none Urinary symptoms: Dysuria, Urgency and Flank Pain Exacerbating factors: urination Relieving factors: none Associated symptoms: back pain Treatment prior to arrival: none Sexual activity: No Patient : No Related Data Home Medications Medication Instructions Recorded Confirmed lisinopril 2.5 mg tablet 2.5 mg PO DAILY 11/04/20 metoprolol tartrate 25 mg tablet 12.5 mg PO BID 11/04/20 Previous Rx's Medication Instructions Recorded naproxen 500 mg tablet 500 mg PO BID PRN pain 30 days #60 11/10/20 tabs ibuprofen 600 mg tablet 600 mg PO Q6H PRN pain #20 tabs 12/08/20 ondansetron 4 mg disintegrating 4 mg PO Q8H PRN nausea and 07/25/21 tablet vomiting #20 tabs Allergies Allergy/AdvReac Type Severity Reaction Status Date / Time morphine [MORPHINE] Allergy Intermediate PAPLITATIONS, Verified 11/04/20 13:52 increased heart rate Review of Systems Review of Systems: Yes all other systems are reviewed and are negative PMFSH Past Medical History Medical History HTN (hypertension) Social History Social History (Updated 07/25/21 @ 21:15 by Cathie Mckee DO) Patient Tobacco Use Status: Never used Tobacco Advance Directives: No Advance Directives Information Provided: Yes Patient : No Current occupational status: unemployed 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 Oriented X3. No acute distress. Head: normocephalic, atraumatic. Eyes: Pupils equal, round and reactive to light. ENT: Pharynx normal. No tonsillar swelling or exudate. Neck: Normal inspection. Neck supple. CVS: Normal heart rate and rhythm. Pulses normal. Respiratory: No respiratory distress. Breath sounds normal. Abdomen: Soft with suprapubic tenderness, no rebound or guarding, normal active +BS x4. +CVA tenderness on the right. pelvic deferred Skin: Skin warm and dry. Normal skin color. Normal skin turgor. No rashes. Extremities: No lower extremity edema. No joint swelling. Neuro/psych: Oriented X 3. No motor deficit. No sensory deficit. CN II-XII intact. Normal speech and cognition. Course Reevaluation(s) Reevaluation #1: Patient is leukocytosis of 15.8. This may be reactive versus due to infection. Her urinalysis is still pending. IV fluids infusing. Her CT scan is showing severe hydronephrosis with a 12 mm distal ureteral stone. Will contact Urology. Her pain is much better controlled after a dose of Toradol. Time: 09:41 Reevaluation #2: Case discussed with Dr. Yin. He is recommending IV Levaquin for positive urinalysis. Her lactic acid is normal. Her rate of 99 on arrival most likely due to pain and not sepsis. Additional IV fluids also ordered. Patient will be admitted to Dr. Yin service with plan for intervention tomorrow. Patient updated on plan of care for admission. Time: 10:49 Consultations Consultation #1: Dr. Yin, urology Medications Administered Discontinued Medications Generic Name Dose Route Start Last Admin Trade Name Freq PRN Reason Stop Dose Admin Sodium Chloride 1,000 mls @ 999 mls/hr 07/16/22 08:00 07/16/22 08:05 Ns IVCONT 07/16/22 09:00 999 mls/hr .Q1H1M YONATHAN Administration Ketorolac Tromethamine 30 mg 07/16/22 07:57 07/16/22 08:17 Ketorolac Tromethamine 30 Mg/Ml Vial IVPUSH 07/16/22 07:58 30 mg ONCE ONE Administration Ondansetron HCl 4 mg 07/16/22 07:57 07/16/22 08:17 Ondansetron Hcl 4 Mg/2 Ml Vial IVPUSH 07/16/22 07:58 4 mg ONCE ONE Administration Medical Decision Making Medical Decision Making [facility] Narrative: 47-year-old female with history of hypertension presents to the ER for evaluation of severe right flank pain associated with dysuria that started yesterday. On arrival to the ER she reports her pain is 10/10. Her urine is tea-colored. She denies any fever, nausea or vomiting. She is nontoxic appearing. She had CVA tenderness on the right which prompted CT scan of the abdomen. CT scan showed severe hydronephrosis on the right side with a 12 mm distal ureteral stone. She had a leukocytosis of 15.8. Her urinalysis is positive for infection. She was given IV fluids and IV antibiotics (levaquin). No evidence of severe sepsis, her lactic acid was normal. Urologist Dr. Yin was contacted who is recommending admission, IV fluids, intervention on the stone tomorrow. Patient updated on plan of care. Differential Diagnosis Differential Diagnoses: The differential diagnosis associated with the presentation includes UTI, pyelonephritis, obstructing kidney stone with hydronephrosis, less likely acute cholecystitis Admission/Observation Consideration of admission/observation: Escalation of care including admission/observation considered Requires admission for ureteral stone intervention, UTI Consult Healthcare Provider Management of the patient was discussed with: [employer] Supervisor Dr. Yin from Urology Lab Data [facility] Lab Attestation statement: I reviewed the patient's lab results. Leukocytosis with normal renal function, normal lactic acid no evidence of end-organ damage 07/16/22 07:42 07/16/22 07:42 Labs: Lab Results 05/29/23 05/29/23 05/29/23 Range/Units 07:42 07:42 09:49 WBC 15.8 H (4.8-10.8) X10*3/uL RBC 4.63 (4.20-5.50) X10*6/uL Hgb 12.9 (12.0-16.0) g/dl Hct 38.4 (37.0-47.0) % MCV 82.9 (80.0-98.0) fL MCH 27.9 (27.0-33.0) pg MCHC 33.6 (31.0-35.0) g/dl RDW 14.4 (11.0-16.0) % Plt Count 308 (160-400) X10*3/uL MPV 9.6 (9.4-12.3) fL Immature Gran % (Auto) 0.4 (0.0-0.4) % Neut % (Auto) 76.3 H (45-73) % Lymph % (Auto) 15.5 L (20-40) % [place] % (Auto) 7.2 (2-11) % Eos % (Auto) 0.1 (0-4) % Baso % (Auto) 0.5 (0-2) % Lymph # (Auto) 2.5 (1.2-4.9) X10*3/uL [place] # (Auto) 1.1 (0.1-1.2) X10*3/uL Eos # (Auto) 0.0 (0.0-0.4) X10*3/uL Baso # (Auto) 0.1 (0.0-0.2) X10*3/uL Abs Immat Gran (auto) 0.06 H (0.00-0.03) X10*3/uL Absolute Neuts (auto) 12.1 H (2.0-8.3) x10*3/uL Absolute Nucleated RBC 0.000 (0.0-0.012) X10*3/uL Nucleated RBC % (auto) 0.0 (0.0-0.2) /100WBC Sodium 137 (135-145) mmol/L Potassium 4.4 (3.3-5.1) mmol/L Chloride 106 (96-108) mmol/L Carbon Dioxide 19 L (22-29) mmol/L Anion Gap 16 (12-20) BUN 11 (9-16) mg/dL Creatinine 0.80 (0.5-1.4) mg/dL Estim Creat Clear Calc 91.5 Estimated GFR > 60 Random Glucose 138 H (60-115) mg/dL Lactic Acid (0.5-2.0) mmol/L Calcium 9.4 (8.4-10.2) mg/dL Magnesium 1.8 (1.6-2.6) mg/dL Total Bilirubin 0.4 (0.0-1.0) mg/dL Direct Bilirubin 0.1 (0.0-0.5) mg/dL AST 21 (5-31) U/L ALT 22 (0-31) U/L Alkaline Phosphatase 64 (39-117) U/L Total Protein 7.3 (6.5-8.0) g/dL Albumin 4.2 (3.5-5.0) g/dL Urine Color Yellow Urine Appearance Cloudy Urine pH 6.0 (5.0-9.0) Ur Specific [place] 1.015 (1.005-1.025) Urine Protein 300 (3+) H (Neg-Trace) mg/dL Urine Glucose (UA) Negative (Negative) mg/dL Urine Ketones Negative (Negative) mg/dL Urine Blood Large (3+) H (Negative) Urine Nitrite Negative (Negative) Ur Leukocyte Esterase Large (3+) H (Negative) Urine RBC 3-5 H (0-2) /HPF Urine WBC >50 H (0-5) /HPF Ur Squamous Epith Cells 0-2 (0-2) /HPF Urine Bacteria 4+ (None Seen) Hyaline Casts 3-5 (0-2) /LPF 07/16/22 Range/Units 10:07 WBC (4.8-10.8) X10*3/uL RBC (4.20-5.50) X10*6/uL Hgb (12.0-16.0) g/dl Hct (37.0-47.0) % MCV (80.0-98.0) fL MCH (27.0-33.0) pg MCHC (31.0-35.0) g/dl RDW (11.0-16.0) % Plt Count (160-400) X10*3/uL MPV (9.4-12.3) fL Immature Gran % (Auto) (0.0-0.4) % Neut % (Auto) (45-73) % Lymph % (Auto) (20-40) % [place] % (Auto) (2-11) % Eos % (Auto) (0-4) % Baso % (Auto) (0-2) % Lymph # (Auto) (1.2-4.9) X10*3/uL [place] # (Auto) (0.1-1.2) X10*3/uL Eos # (Auto) (0.0-0.4) X10*3/uL Baso # (Auto) (0.0-0.2) X10*3/uL Abs Immat Gran (auto) (0.00-0.03) X10*3/uL Absolute Neuts (auto) (2.0-8.3) x10*3/uL Absolute Nucleated RBC (0.0-0.012) X10*3/uL Nucleated RBC % (auto) (0.0-0.2) /100WBC Sodium (135-145) mmol/L Potassium (3.3-5.1) mmol/L Chloride (96-108) mmol/L Carbon Dioxide (22-29) mmol/L Anion Gap (12-20) BUN (9-16) mg/dL Creatinine (0.5-1.4) mg/dL Estim Creat Clear Calc Estimated GFR Random Glucose (60-115) mg/dL Lactic Acid 1.5 (0.5-2.0) mmol/L Calcium (8.4-10.2) mg/dL Magnesium (1.6-2.6) mg/dL Total Bilirubin (0.0-1.0) mg/dL Direct Bilirubin (0.0-0.5) mg/dL AST (5-31) U/L ALT (0-31) U/L Alkaline Phosphatase (39-117) U/L Total Protein (6.5-8.0) g/dL Albumin (3.5-5.0) g/dL Urine Color Urine Appearance Urine pH (5.0-9.0) Ur Specific [place] (1.005-1.025) Urine Protein (Neg-Trace) mg/dL Urine Glucose (UA) (Negative) mg/dL Urine Ketones (Negative) mg/dL Urine Blood (Negative) Urine Nitrite (Negative) Ur Leukocyte Esterase (Negative) Urine RBC (0-2) /HPF Urine WBC (0-5) /HPF Ur Squamous Epith Cells (0-2) /HPF Urine Bacteria (None Seen) Hyaline Casts (0-2) /LPF Independent Interpretation I performed an independent interpretation of an: CT Scan Interpretation: CT scan with severe right-sided hydronephrosis and a large ureteral stone on the right, agree with radiologist's read. Radiology Impression Discussion of test interpretation with radiology: I have reviewed the radiologist's reading. Radiologist Impression: CT/CT abdomen pelvis wo IV con IMPRESSION: 1. Severe right hydroureteronephrosis. 12 mm calculus in the distal right ureter. Question additional small calculi versus subjacent calcifications distal to this. 2. Left renal nonobstructing calculi. 3. Urinary bladder wall prominence, could be due to lack of distention versus cystitis. 4. Colonic diverticulosis without diverticulitis. 5. Hepatomegaly. 6. Additional findings and details as above. External Record Review External record reviewed: Office record, Outpatient record, Prior outpatient labs and Prior outpatient radiology Prescription Management I considered prescription management with: Pain Medication and Antibiotic Chronic Conditions Patient?s care impacted by: Hypertension Critical Care Time Critical Care Time Critical Care Time: Yes Total Critical Care Time: 42 Attestation: I have personally provided critical care time exclusive of time spent on separately billable procedures. Time includes review of lab data, radiology results, discussion with consultants, and monitoring for potential decompensation. Intervention performed as documented. Discharge Plan Discharge Clinical Impression: Urinary tract infection, Hydronephrosis with ureteral calculus Patient Disposition: Admitted As Inpatient
[2022-07-16] MEDS: 0.9 % Sodium Chloride 1,000 ML 999 ML IVCONT ×2 (08:05→12:03)
[2022-07-16 08:06] LABS: Alanine Aminotransferase 22 U/L (0-31); Albumin Level 4.2 g/dL (3.5-5.0); Alkaline Phosphatase 64 U/L (39-117); Anion Gap 16 (12-20); Aspartate Amino Transferase 21 U/L (5-31); Bilirubin Direct 0.1 mg/dL (0.0-0.5); Bilirubin Total 0.4 mg/dL (0.0-1.0); Blood Urea Nitrogen 11 mg/dL (9-16); Calcium 9.4 mg/dL (8.4-10.2); Carbon Dioxide 19 mmol/L (22-29); Chloride 106 mmol/L (96-108); Creatinine Clr Calc Pharmacy 91.5; Estimated Glomerular Filt Rate > 60; Glucose Random 138 mg/dL (60-115); Magnesium 1.8 mg/dL (1.6-2.6); Potassium 4.4 mmol/L (3.3-5.1); Sodium 137 mmol/L (135-145); Total Protein 7.3 g/dL (6.5-8.0)
[2022-07-16] MEDS: ondansetron HCL 4 MG/2 ML VIAL IVPUSH ×2 (08:17→19:22)
[2022-07-16] MEDS: Ketorolac Tromethamine 30 MG/ML VIAL IVPUSH (08:17)
--- NOTE | 2022-07-16 09:00 | PC.NURSE ---
alert and oriented, resp even and unlabored, vss. iv established, fluids infusing. ambulates with steady gait.
--- NOTE | 2022-07-16 09:50 | MHC.EDTECH ---
Urine collected and sent to lab
[2022-07-16 09:55] LABS: Appearance Urine Cloudy; Color Urine Yellow; Glucose Urine UA Negative (Negative); Leukocyte Esterase Urine Large (3+) (Negative); Nitrite Urine Negative (Negative); Specific Gravity - Urine 1.015 (1.005-1.025); UMIC TRIGGER UACC YES; Urine Blood Large (3+) (Negative); Urine Ketones Negative (Negative); Urine Protein 300 (3+) mg/dL (Neg-Trace)
[2022-07-16 10:06] LABS: Bacteria Urine 4+ (None Seen); Squamous Epithelial Cell Urine 0-2 /HPF (0-2); UACC Culture Trigger YES; WBC Urine >50 /HPF (0-5)
[2022-07-16 10:25] LABS: Lactic Acid 1.5 mmol/L (0.5-2.0)
--- NOTE | 2022-07-16 10:26 | MHC.EDTECH ---
Second set of cultures drawn and sent to lab
[2022-07-16] MEDS: Acetaminophen 325 MG TABLET 975 MG PO ×3 (10:54→20:35)
[2022-07-16] MEDS: levoFLOXacin/D5W 750 MG/150 ML PIGGYBACK 100 MG IV (10:55)
[2022-07-16] MEDS: fentaNYL citrate/PF 100 MCG/2 ML VIAL 50 MCG IVPUSH (10:55)
[2022-07-16 10:59] VITALS: BP 136/84; PULSE 77; RESP 18; O2SAT 99
--- NOTE | 2022-07-16 11:27 | PHA.MEDREC ---
Med rec complete, spoke to patient and looked at pharmacy claim history Pharmacy Consult ? Medication Reconciliation Pharmacy has completed the medication reconciliation.
[2022-07-16] MEDS: dilTIAZem HCL CD 300 MG CAP.ER.24H PO (12:01)
[2022-07-16] MEDS: lisinopriL 40 MG TABLET PO (12:01)
[2022-07-16] MEDS: Metoprolol Succinate ER 50 MG TAB.ER.24H PO (12:01)
[2022-07-16] MEDS: Omeprazole 20 MG CAPSULE.DR PO (12:01)
--- NOTE | 2022-07-16 12:17 | PC.NURSE ---
second liter hung, abx still infusing. pt aware of plan for admission
[2022-07-16 14:17] VITALS: BP 132/91; PULSE 65; RESP 18; O2SAT 99
[2022-07-16 15:40] VITALS: BP 125/86; PULSE 75; RESP 18; TEMP 36; O2SAT 100
[2022-07-16] MEDS: oxyCODONE HCl Immed Release 5 MG TABLET PO ×2 (16:01→23:25)
[2022-07-16] MEDS: 0.9 % Sodium Chloride Flush 3 ML SYRINGE IVFLUSH (18:05)
[2022-07-16] MEDS: Ketorolac Tromethamine 15 MG/ML VIAL IVPUSH (19:22)
[2022-07-16] MEDS: Docusate Sodium 100 MG CAPSULE PO (20:37)
[2022-07-16 23:41] VITALS: BP 122/76; PULSE 69; RESP 16; TEMP 36.1; O2SAT 99
[2022-07-17] VITALS (11 sets, daily range): BP systolic 115–147; BP diastolic 70–93; PULSE 57–92; RESP 16–18; TEMP 36–36.6; O2SAT 94–100
[2022-07-17] MEDS: 0.9 % Sodium Chloride Flush 3 ML SYRINGE IVFLUSH ×4 (00:40→20:02)
--- NOTE | 2022-07-17 02:28 | PC.NURSE ---
Assumed care at 1600. Patient alert and oriented x4. she was admitted today with the UTI, pyelonephritis, and the kidney stone. She did not have a hospitalist consult and she was reporting nausea. She had zofran at 8 am in the ED, as a one time dose. Discussed with Dr. Yin, new order for zofran IVP Q6 hours PRN nausea/vomiting; order adjusted by pharmacy to Q8 hours. Administered with good effect. Patient continued to have repeated episodes of right flank pain overnight, worse with urination. Medicated with scheduled tylenol and PRN oxycodone as per emar. Denies bloody urine at this time but reported recent history of it.
[2022-07-17] MEDS: Ketorolac Tromethamine 15 MG/ML VIAL IVPUSH ×2 (04:25→23:46)
[2022-07-17] MEDS: Omeprazole 20 MG CAPSULE.DR PO (05:43)
[2022-07-17] MEDS: oxyCODONE HCl Immed Release 5 MG TABLET PO (05:45)
--- NOTE | 2022-07-17 08:34 | PM.HPGS ---
History of Present Illness History of Present Illness Date of Service: 07/17/22 Chief complaint: distal ureteric stone Narrative: Tank Santiago is a 47 year old female Presented to emergency room with 2-3 days acute pain on the right side Thinks pain has been present on off for number of months Had notice blood in the urine Denies fever, chills Positive dysuria with pain into right side of labia Imaging - Severe right hydroureteronephrosis. There is a 12 mm calculus in the distal right ureter. WBC 15.8, creatinine 0.8, calcium 9.4 Based on discussion recommendation for admission and stone intervention Review of Systems Constitutional: Constitutional: Reports as per HPI and Reports no additional constitutional complaints Cardiovascular: Cardiovascular: Reports as per HPI and Reports no additional cardiovascular complaints Respiratory: Respiratory: Reports as per HPI and Reports no additional respiratory complaints Gastrointestinal: Gastrointestinal: Reports as per HPI and Reports no additional gastrointestinal complaints Genitourinary: Genitourinary: Reports as per HPI Musculoskeletal: Musculoskeletal: Reports no additional musculoskeletal complaints and Reports as per HPI Neurologic: Reports system reviewed and no additional complaints, except as documented and Reports as per HPI [facility] Past Medical History Medical History HTN (hypertension) Social History Social History (Updated 07/25/21 @ 21:15 by Cathie Mckee DO) Household Members: Spouse Do you presently have visiting nurse or other home services: No Patient Tobacco Use Status: Former Tobacco user Quit Date: 2016 Tobacco use type: Cigarette Years Smoked: 11 Second Hand Smoke Exposure: No ( smokes outside) Use of substances other than those prescribed or required for medical reasons: No Currently Displaying Signs/Symptoms of Drug Intoxication Withdrawal: No Have you been hit, kicked, punched, or otherwise hurt by someone within the past year? If so, by whom?: No Do you feel safe in your current relationship?: Yes Is there a partner from a previous relationship who is making you feel unsafe now?: No Are you made to feel afraid or neglected: No Spiritual Healthcare Practices: [facility] Practices: [address] [place] [address] Cultural Healthcare Practices: N/A Advance Directives: No Advance Directives Information Provided: Yes Advance Directives on File: No Do you have thoughts of harming others: None Do you have a plan to hurt others: No Plan Recently lost weight without trying: No Eating poorly because of decreased appetite: No Nutrition Risks: Dental problems Patient : No : No Poor oral hygiene: No Current occupational status: unemployed 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 Meds Allergies Allergy/AdvReac Type Severity Reaction Status Date / Time morphine [MORPHINE] Allergy Intermediate PAPLITATIONS, Verified 11/04/20 13:52 increased heart rate Active Medications: Current Medications Acetaminophen (Acetaminophen 325 Mg Tablet) 975 mg PO TID [facility] Last Admin: 07/16/22 20:35 Dose: 975 mg Diltiazem HCl (Diltiazem Hcl Cd 300 Mg Cap.Er.24h) 300 mg PO DAILY [facility]; Protocol Last Admin: 07/16/22 12:01 Dose: 300 mg Docusate Sodium (Docusate Sodium 100 Mg Capsule) 100 mg PO BID [facility] Last Admin: 07/16/22 20:37 Dose: 100 mg Levofloxacin (Levaquin) 500 mg in 100 mls @ 100 mls/hr IV PREOP ONE Stop: 07/17/22 09:26 Ketorolac Tromethamine (Ketorolac Tromethamine 15 Mg/Ml Vial) 15 mg IVPUSH Q6H PRN PRN Reason: Pain, Moderate(Pain Scale 4-6) Last Admin: 07/17/22 04:25 Dose: 15 mg Lisinopril (Lisinopril 40 Mg Tablet) 40 mg PO DAILY [facility]; Protocol Last Admin: 07/16/22 12:01 Dose: 40 mg Metoprolol Succinate (Metoprolol Succinate Er 50 Mg Tab.Er.24h) 50 mg PO DAILY [facility]; Protocol Last Admin: 07/16/22 12:01 Dose: 50 mg Omeprazole (Omeprazole 20 Mg Capsule.Dr) 20 mg PO DAILY@0630 [facility] Last Admin: 07/17/22 05:43 Dose: 20 mg Ondansetron HCl (Ondansetron Hcl 4 Mg/2 Ml Vial) 4 mg IVPUSH Q8H PRN PRN Reason: Nausea and Vomiting Last Admin: 07/16/22 19:22 Dose: 4 mg Oxycodone HCl (Oxycodone Hcl Immed Release 5 Mg Tablet) 5 mg PO Q6H PRN PRN Reason: Pain, Severe (Pain Scale 7-10) Last Admin: 07/17/22 05:45 Dose: 5 mg Pharmacy Consult (Consult Rx Perform Med Rec) 1 each MISCELLANE ONCE PRN PRN Reason: Consult order Sodium Chloride (0.9 % Sodium Chloride Flush 3 Ml Syringe) [facility] Last Admin: 07/17/22 00:40 Dose: 3 ml Home Medications Medication Instructions Recorded Confirmed Last Taken Type diltiazem HCl 300 mg 300 mg PO DAILY 07/16/22 07/16/22 07/15/22 History capsule,extended release 24 hr docusate sodium 100 mg capsule 100 mg PO NEEDED PRN 07/16/22 07/16/22 2 Weeks Ago History (Colace) Constipation ~07/02/22 hydrochlorothiazide 12.5 mg tablet 12.5 mg PO Q2D 07/16/22 07/16/22 Unknown History lisinopril 40 mg tablet 40 mg PO DAILY 07/16/22 07/16/22 07/15/22 History metoprolol succinate 50 mg 50 mg PO DAILY 07/16/22 07/16/22 07/15/22 History tablet,extended release 24 hr omeprazole 20 mg capsule,delayed 20 mg PO DAILY@0630 07/16/22 07/16/22 07/15/22 History release Physical Exam Vital Signs: Vital Signs: Last Vital Signs Temp 96.8 F 07/17/22 07:37 Pulse 66 07/17/22 07:37 Resp 18 07/17/22 07:37 BP 116/73 07/17/22 07:37 Pulse Ox 96 07/17/22 07:37 O2 Del Method Room Air 07/17/22 07:37 BMI result Body Mass Index 36.2 Const: General: cooperative, healthy appearing, comfortable and no acute distress Orientation/consciousness: patient oriented x3 HEENT: Face and sinus: Yes normal facial exam Mouth: moist mucous membranes Neck: Neck: Yes normal visual inspection, Yes full ROM and Yes trachea midline Chest: Chest palpation & inspection: normal inspection of the chest Resp: Effort & Inspection: normal respiratory effort, able to speak in complete sentences and no respiratory distress GI: Inspection: Yes normal to inspection Back/Spine/Pelvis: Cervical Spine: normal cervical lordosis Thoracic/Lumbar Spine: thoracic and lumbar spine normal to inspection Skin: General skin exam: no rashes or lesions noted Neuro: General: patient oriented x3, tone normal and moves all extremities Extrem: General: Yes normal to inspection and Yes capillary refill normal Results Results Labs: Urine 07/16/22 Range/Units 09:49 Urine Color Yellow Urine Appearance Cloudy Urine pH 6.0 (5.0-9.0) Ur Specific [place] 1.015 (1.005-1.025) Urine Protein 300 (3+) H (Neg-Trace) mg/dL Urine Glucose (UA) Negative (Negative) mg/dL Assessment and Plan (1) Urinary tract infection: Status: Acute (2) Hydronephrosis with ureteral calculus: Status: Acute Plan Admit for antibiotics Ureteroscopy We discussed the nature of the decision and reasonable alternatives for performing ureteroscopy. Options such as medical therapy were discussed. Interventions include chemical dissolution, ESWL, ureteroscopy with laser lithotripsy and stent placement, PCNL. The relative uncertainties and benefits related to each alternate procedure were adequately discussed. General surgical risks including, but not limited to - pain, bleeding, infection, myocardial infarction, pulmonary embolus, deep vein thrombosis and cerebrovascular accident which may result in further hospitalization were discussed. Full disclosure of the procedure as well as all major risks, benefits and complications were discussed including but not limited to damage to the urethra, bladder and kidney infection, damage to the ureter, stent migration or malposition, scarring to the renal pelvis, remnant stone fragments, subsequent stone passage with need for secondary procedures. The overall secondary procedure rate is approximately 10-15%. The overall clearance rate is approximately 90-95%. Success of the procedure in the short-term does not necessarily guarantee that long-term success will be maintained. Suitable follow up will need to be maintained. The patient showed understanding of discussion and wishes to proceed with - cystoscopy, retrograde, ureteroscopy, possible lithotripsy/stone basketing and stent on the right side Time Spent With Patient Time: Total time managing care of this patient today ____ minutes. Quality Stroke Does the patient have a stroke diagnosis?: No VTE Prior VTE?: No VTE Risk Level:: Surgical - low VTE Device Contraindication: Treatment Not Indicated VTE Drug Contraindication: Treatment Not Indicated Procedures Date of Service Date of Service: 07/17/22
[2022-07-17] MEDS: Metoprolol Succinate ER 50 MG TAB.ER.24H PO (08:55)
[2022-07-17] MEDS: dilTIAZem HCL CD 300 MG CAP.ER.24H PO (08:55)
[2022-07-17] MEDS: lisinopriL 40 MG TABLET PO (08:55)
[2022-07-17] MEDS: ondansetron HCL 4 MG/2 ML VIAL IVPUSH (08:59)
--- NOTE | 2022-07-17 09:42 | MHC.CM.PN ---
pt lives with spouse had no previous servceis has own ride home is covid vax no servceis will be needed when dcd
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
--- NOTE | 2022-07-17 12:56 | HO.ANESPROP2 ---
[facility] Active Problems Active Problems: All Active Problems (Updated 07/16/22 @ 10:34 by DONNA Griffiths) Urinary tract infection (Acute) Hydronephrosis with ureteral calculus (Acute) Patellofemoral syndrome of right knee (Acute) Past Medical History Medical History HTN (hypertension) Surgical History History of Problems with Anesthesia: No Social History Social History Household Members: Spouse Do you presently have visiting nurse or other home services: No Patient Tobacco Use Status: Former Tobacco user Quit Date: 2016 Tobacco use type: Cigarette Years Smoked: 11 Second Hand Smoke Exposure: No Use of substances other than those prescribed or required for medical reasons: No Currently Displaying Signs/Symptoms of Drug Intoxication Withdrawal: No Have you been hit, kicked, punched, or otherwise hurt by someone within the past year? If so, by whom?: No Do you feel safe in your current relationship?: Yes Is there a partner from a previous relationship who is making you feel unsafe now?: No Are you made to feel afraid or neglected: No Spiritual Healthcare Practices: Go to [facility] Religion Healthcare Practices: [address] [place] [address] Cultural Healthcare Practices: N/A Are you DNR?: No Advance Directives: No Advance Directives Information Provided: Yes Advance Directives on File: No Do you have thoughts of harming others: None Do you have a plan to hurt others: No Plan Recently lost weight without trying: No Eating poorly because of decreased appetite: No Nutrition Risks: Dental problems Patient : No : No Poor oral hygiene: No service: No Current occupational status: unemployed 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 Meds Allergies Allergy/AdvReac Type Severity Reaction Status Date / Time morphine [MORPHINE] Allergy Intermediate PAPLITATIONS, Verified 11/04/20 13:52 increased heart rate Active Medications: Current Medications Acetaminophen (Acetaminophen 325 Mg Tablet) 975 mg PO TID [facility] Last Admin: 07/17/22 09:05 Dose: Not Given Diltiazem HCl (Diltiazem Hcl Cd 300 Mg Cap.Er.24h) 300 mg PO DAILY [facility]; Protocol Last Admin: 07/17/22 08:55 Dose: 300 mg Docusate Sodium (Docusate Sodium 100 Mg Capsule) 100 mg PO BID [facility] Last Admin: 07/17/22 09:06 Dose: Not Given Hydromorphone HCl (Hydromorphone Hcl 0.5 Mg/0.5 Ml Syringe) 0.5 mg IVPUSH Q3H PRN; Protocol PRN Reason: Pain, Severe (Pain Scale 7-10) Ketorolac Tromethamine (Ketorolac Tromethamine 15 Mg/Ml Vial) 15 mg IVPUSH Q6H PRN PRN Reason: Pain, Moderate(Pain Scale 4-6) Last Admin: 07/17/22 04:25 Dose: 15 mg Lisinopril (Lisinopril 40 Mg Tablet) 40 mg PO DAILY [facility]; Protocol Last Admin: 07/17/22 08:55 Dose: 40 mg Metoprolol Succinate (Metoprolol Succinate Er 50 Mg Tab.Er.24h) 50 mg PO DAILY [facility]; Protocol Last Admin: 07/17/22 08:55 Dose: 50 mg Omeprazole (Omeprazole 20 Mg Capsule.Dr) 20 mg PO DAILY@0630 [facility] Last Admin: 07/17/22 05:43 Dose: 20 mg Ondansetron HCl (Ondansetron Hcl 4 Mg/2 Ml Vial) 4 mg IVPUSH Q8H PRN PRN Reason: Nausea and Vomiting Last Admin: 07/17/22 08:59 Dose: 4 mg Oxycodone HCl (Oxycodone Hcl Immed Release 5 Mg Tablet) 5 mg PO Q6H PRN PRN Reason: Pain, Severe (Pain Scale 7-10) Last Admin: 07/17/22 05:45 Dose: 5 mg Pharmacy Consult (Consult Rx Perform Med Rec) 1 each MISCELLANE ONCE PRN PRN Reason: Consult order Sodium Chloride (0.9 % Sodium Chloride Flush 3 Ml Syringe) 3 ml IVFLUSH QSHIFT [facility] Last Admin: 07/17/22 08:56 Dose: 3 ml Home Medications Medication Instructions Recorded Confirmed Last Taken Type diltiazem HCl 300 mg 300 mg PO DAILY 07/16/22 07/16/22 07/15/22 History capsule,extended release 24 hr docusate sodium 100 mg capsule 100 mg PO NEEDED PRN 07/16/22 07/16/22 2 Weeks Ago History (Colace) Constipation ~07/02/22 hydrochlorothiazide 12.5 mg tablet 12.5 mg PO Q2D 07/16/22 07/16/22 Unknown History lisinopril 40 mg tablet 40 mg PO DAILY 07/16/22 07/16/22 07/15/22 History metoprolol succinate 50 mg 50 mg PO DAILY 07/16/22 07/16/22 07/15/22 History tablet,extended release 24 hr omeprazole 20 mg capsule,delayed 20 mg PO DAILY@0630 07/16/22 07/16/22 07/15/22 History release Exam Exam Date and Time: July 17, 2022 1256 Height,Weight and Vital Signs: Height 5 ft 2 in Weight 89.811 kg Last Vital Signs Temp 97.8 F 07/17/22 11:12 Pulse 92 07/17/22 11:12 Resp 16 07/17/22 11:12 BP 147/93 H 07/17/22 11:12 Pulse Ox 98 07/17/22 11:12 O2 Del Method Room Air 07/17/22 11:12 Pertinent Lab Results Pertinent Lab Results: Laboratory Tests 07/16/22 07/16/22 07/16/22 07:42 07:42 09:49 WBC 15.8 H RBC 4.63 Hgb 12.9 Hct 38.4 MCV 82.9 MCH 27.9 MCHC 33.6 RDW 14.4 Plt Count 308 MPV 9.6 Immature Gran % (Auto) 0.4 Neut % (Auto) 76.3 H Lymph % (Auto) 15.5 L [place] % (Auto) 7.2 Eos % (Auto) 0.1 Baso % (Auto) 0.5 Lymph # (Auto) 2.5 [place] # (Auto) 1.1 Eos # (Auto) 0.0 Baso # (Auto) 0.1 Abs Immat Gran (auto) 0.06 H Absolute Neuts (auto) 12.1 H Absolute Nucleated RBC 0.000 Nucleated RBC % (auto) 0.0 Sodium 137 Potassium 4.4 Chloride 106 Carbon Dioxide 19 L Anion Gap 16 BUN 11 Creatinine 0.80 Estim Creat Clear Calc 91.5 Estimated GFR > 60 Random Glucose 138 H Lactic Acid Calcium 9.4 Magnesium 1.8 Total Bilirubin 0.4 Direct Bilirubin 0.1 AST 21 ALT 22 Alkaline Phosphatase 64 Total Protein 7.3 Albumin 4.2 Urine Color Yellow Urine Appearance Cloudy Urine pH 6.0 Ur Specific [place] 1.015 Urine Protein 300 (3+) H Urine Glucose (UA) Negative Urine Ketones Negative Urine Blood Large (3+) H Urine Nitrite Negative Ur Leukocyte Esterase Large (3+) H Urine RBC 3-5 H Urine WBC >50 H Ur Squamous Epith Cells 0-2 Urine Bacteria 4+ Hyaline Casts 3-5 07/16/22 10:07 WBC RBC Hgb Hct MCV MCH MCHC RDW Plt Count MPV Immature Gran % (Auto) Neut % (Auto) Lymph % (Auto) [place] % (Auto) Eos % (Auto) Baso % (Auto) Lymph # (Auto) [place] # (Auto) Eos # (Auto) Baso # (Auto) Abs Immat Gran (auto) Absolute Neuts (auto) Absolute Nucleated RBC Nucleated RBC % (auto) Sodium Potassium Chloride Carbon Dioxide Anion Gap BUN Creatinine Estim Creat Clear Calc Estimated GFR Random Glucose Lactic Acid 1.5 Calcium Magnesium Total Bilirubin Direct Bilirubin AST ALT Alkaline Phosphatase Total Protein Albumin Urine Color Urine Appearance Urine pH Ur Specific [place] Urine Protein Urine Glucose (UA) Urine Ketones Urine Blood Urine Nitrite Ur Leukocyte Esterase Urine RBC Urine WBC Ur Squamous Epith Cells Urine Bacteria Hyaline Casts Airway Mallampati Class: II TM Dist: >3cm Neck ROM: Full Heart: RRR Lungs: CTA Assessment and Plan Final Anesthetic Review History of Problems with Anesthesia: No NPO: Yes ASA Class: II and Emergency Final Preanesthetic Review: Meds/Allgs Chart Reviewed, Consent Obtained/Reviewed and Anes Risks/Benef Reviewed Patient Risk: Low Procedure Risk: Low Anesthetic Plan Anesthetic Plan: GA Disposition: Standard PACU
--- NOTE | 2022-07-17 13:23 | P.OP_ITS ---
Operative Note Operative Note Date of Service: 07/17/22 Narrative: PreOperative Diagnosis:?? Right hydronephrosis, right ureteral stone Post Operative Diagnosis:?? ?High grade obstruction from right ureteral stone, bladder wall multifocal erythematous changes Procedure: cystoscopy, right retrograde, - Right stent placement (6fr by Multifocal cm) Bladder biopsy Surgeon:?Dr Matteo Littlejohn Anesthesia:? General Indications for procedure: Cesia is a 47 year old female wth h/o kidney stones, presented with right flank pain, CTAP, large right ureteral stent with hydronephros. Procedure: After informed consent was verified the patient was brought to the operating placed on the OR table in supine position.? General Anesthesia was administered per protocol.? The patient was placed in lithotomy position, prepped and draped in the usual sterile fashion.? Safety pause time-out and side of surgery confirmed.? Antibiotics confirmed. A 22 Amharic cystoscope was inserted transurethrally, The bladder was visualized.? There were multi-focal flattened erythematous changes noted, Both ureteric orifices were in normal position. The? right ureteric orifice was cannulated? and a retrograde examination was performed, severe dilatation of proximal ureter and renal pelvis was noted, a guide was passed and the ureteral catheter was placed further proixmal beyond the stone, there was urine sent for c/s. The guide wire was replaced and after removing the ureteral catheter a stent was placed 6fr by Multilength stent was placed into the ureter and renal pelvis under a combination of fluoroscopy and direct visualization. The flexible grasping forceps was used to obtain a biopsy from the erythematous area left lateral wall. The bugbee electrode was used for hemostasis. The bladder was emptied.? The rigid cystoscope was removed. ? The patient tolerated the procedure well and was brought to the recovery room in stable condition. Complications: None Drains: Ureteral stent as dictated above
--- NOTE | 2022-07-17 14:22 | HO.POSTANES ---
Post Anesthesia Evaluation Post Anesthesia Evaluation Date of Service: 07/17/22 Vital Signs: Vital Signs Temp Pulse Resp BP Pulse Ox O2 Del Method O2 Flow Rate 07/17/22 14:16 97.3 F 72 18 117/73 98 Room Air 07/17/22 14:01 97.0 F 71 16 115/76 100 Nasal Cannula 2 07/17/22 13:40 76 16 121/76 94 Nasal Cannula 2 07/17/22 13:45 73 16 119/70 98 Nasal Cannula 2 07/17/22 13:35 86 16 115/74 98 Room Air 07/17/22 13:30 97.6 F 57 16 143/93 H 98 Room Air 07/17/22 11:12 97.8 F 92 16 147/93 H 98 Room Air 07/17/22 07:37 96.8 F 66 18 116/73 96 Room Air Anesthesia: General LMA Mental Status: Awake Pain Control: Satisfactory Nausea/Vomiting: None Hydration: Adequate Anesthesia-Related Issues: No Anes. Related Issues
[2022-07-17] MEDS: Acetaminophen 325 MG TABLET 975 MG PO ×2 (15:25→20:56)
[2022-07-17] MEDS: Docusate Sodium 100 MG CAPSULE PO (20:56)
[2022-07-18] VITALS: BP 118/70; PULSE 77; RESP 16; TEMP 36; O2SAT 97
[2022-07-18 04:00] VITALS: BP 122/71; PULSE 68; RESP 16; TEMP 36; O2SAT 98
[2022-07-18] MEDS: Omeprazole 20 MG CAPSULE.DR PO (05:30)
[2022-07-18] MEDS: Ketorolac Tromethamine 15 MG/ML VIAL IVPUSH ×2 (05:36→11:22)
[2022-07-18 07:24] VITALS: BP 139/90; PULSE 72; RESP 20; TEMP 36.2; O2SAT 99
[2022-07-18] MEDS: Acetaminophen 325 MG TABLET 975 MG PO (07:33)
[2022-07-18] MEDS: 0.9 % Sodium Chloride Flush 3 ML SYRINGE IVFLUSH (07:33)
[2022-07-18] MEDS: lisinopriL 40 MG TABLET PO (07:33)
[2022-07-18] MEDS: Metoprolol Succinate ER 50 MG TAB.ER.24H PO (07:33)
[2022-07-18] MEDS: Docusate Sodium 100 MG CAPSULE PO (07:33)
[2022-07-18] MEDS: dilTIAZem HCL CD 300 MG CAP.ER.24H PO (07:33)
[2022-07-18 07:57] VITALS: O2SAT 95
[2022-07-18] MEDS: levoFLOXacin/D5W 500 MG/100 ML PIGGYBACK 100 MG IV (11:22)
--- NOTE | 2022-07-18 14:21 | MHC.CM.PN ---
pt dcd home no skilled servceis orderd by
--- NOTE | 2022-11-28 20:28 | PM.DS ---
DS: Providers Provider Date of Service: 07/18/22 Date of admission: 07/16/22 14:10 Date of discharge: 07/18/22 Primary care physician: Alex Sheriff MD Admitting clinician: Filiberto Yin Attending physician on admission: Filiberto Yin Attending physician on discharge: Filiberto Yin Discharging clinician: Matteo Littlejohn DS: Diagnosis Discharge Diagnosis (1) Urinary tract infection: Status: Acute (2) Hydronephrosis with ureteral calculus: Status: Acute DS: Summary Hospital Course Hospital Course: Tank is a 47 year old female who was admitted due to right flank pain. CT imaging was significant for right hydronephrosis secondary to right ureteral stone. She was treated for UTI. She underwent cystoscopy, right retrograde, - Right stent placement (6fr by Multifocal cm) Bladder biopsy on 07/17/22. Status at Discharge Cognitive/behavioral status at discharge: Cognition normal Functional status at discharge: independent ambulation Overall status at discharge: patient is progressing back to baseline (discharged s/p right ureteral stent, she will need follow up with urology for further stone management) Time Spent with Patient Time attestation: Total time managing care of this patient today ____ minutes. Discharge coordination time: Greater than 30 minutes Quality: Safe Use of Opioids Does Pt have an Active Cancer Diagnosis on the Problem List?: No Quality: Stroke Does the patient have a stroke diagnosis?: No Reason for No Anti-thrombotic at DC: Not indicated Reason for No Anticoagulant at DC: Not indicated Reason Not Initiating IV-Tpa: Not indicated Reason for No Anti-thrombotic by Day Two: Not indicated Reason for No Statin at DC: Not indicated Physical Exam Vital Signs: Vital Signs: Last Vital Signs Temp 97.2 F 07/18/22 07:24 Pulse 72 07/18/22 07:24 Resp 20 07/18/22 07:24 BP 139/90 H 07/18/22 07:24 Pulse Ox 95 07/18/22 07:57 O2 Del Method Nasal Cannula 07/18/22 07:57 O2 Flow Rate 2 07/18/22 07:57 BMI result Body Mass Index 36.2 DS: Data Data Completed and Pending Completed studies during hospitalization [Text1]: Pending at discharge 07/17/22 13:19 Surgical [PTH] Routine Procedures Dilation of Right Ureter with Intraluminal Device, Via Natural or Artificial Opening Endoscopic (07/16/22) Excision of Bladder, Via Natural or Artificial Opening Endoscopic, Diagnostic (07/16/22) Fluoroscopy of Right Kidney, Ureter and Bladder using Low Osmolar Contrast (07/16/22) Discharge Plan Discharge Anticipated Discharge Date/Time: 07/18/22 13:18 Patient Disposition: Home, Self-Care Discharge Diagnosis: UTI, Ureteral stone, Hydronephrosis Referrals: Alex Sheriff MD [Primary Care Provider] - 1 Week Discharge Medications: Continued hydrochlorothiazide 12.5 mg Tablet 12.5 mg PO Q2D omeprazole 20 mg Capsule,Delayed Release(Dr/Ec) 20 mg PO DAILY@0630 lisinopril 40 mg Tablet 40 mg PO DAILY metoprolol succinate 50 mg Tablet Extended Release 24 Hr 50 mg PO DAILY diltiazem HCl 300 mg Capsule,Extended Release 24hr 300 mg PO DAILY docusate sodium [Colace] 100 mg Capsule 100 mg PO NEEDED PRN (Reason: Constipation) Discharge Orders: Discharge Order (Routine); Ordered 07/18/22 Ordered By: Matteo Littlejohn Activity on Discharge: As tolerated Stand Alone Forms: Patient Portal Discharge page Care Plan Goals: Follow up with Urology for stone management Health Concerns: Increase fluid intake, low sodium diet recommended Plan of Treatment: Discharge on PO levaquin, final urine c/s pending, FU with Urology Assessment: Ureteral stone, UTI Discharge Date/Time: 07/18/22 14:26
== END 2022-07-18 14:26 | disposition home or self-care (01) | DRG 661 ==
LOC: HO.ED 10:34 → HO.EDOVER 14:15 → HO.S3 14:43
PROVIDERS: Physician Assistant; Urology; Admitting Provider Urology; Emergency Provider Emergency Medicine; PCP Internal Medicine; Visit Provider Urology
DX: N13.6 Pyonephrosis (principal); I10 Essential (primary) hypertension; Z79.891 Long term (current) use of opiate analgesic; Z88.5 Allergy status to narcotic agent; Z79.899 Other long term (current) drug therapy
CPT/HCPCS: 36415; 74176; 80048; 80076; 81001; 83605; 83735; 85025; 87040; 87086; 87088; 87147; 87186; 87205; 88305; 99285; C1769; C1894; C2617; J1100; J1885; J1956; J2250; J2405; J2550; J3010; Q9967

== ENCOUNTER → 2022-07-16 14:10 | Outpatient (BNV) | payer OTHER, SELFPAY | PROVIDERS: Admitting Provider Urology; Emergency Provider Emergency Medicine; PCP Internal Medicine; Visit Provider Urology | DX: N39.0 Urinary tract infection, site not specified (principal); N13.2 Hydronephrosis with renal and ureteral calculous obstruction | CPT/HCPCS: 52204; 52332; 74420; 99222; 99238 ==

== ENCOUNTER 2022-07-31 13:18 | Emergency (ER) | payer OTHER, SELFPAY ==
--- NOTE | ~2022-07-31 | CT_ITS ---
EXAMINATION: CT ABDOMEN AND PELVIS WITHOUT CONTRAST CLINICAL INFORMATION: Large proximal ureter stone with hydroureter. Status post stenting COMPARISON: CT 07/16/2022 TECHNIQUE: Multidetector volumetric imaging was performed from the superior aspect of the liver through the pubic symphysis. Sagittal and coronal reformatted images were obtained on the technologist's workstation. This CT examination was performed using dose optimization techniques as appropriate, variously including the following: *Automated exposure control *Adjustment of mA and/or kV according to patient size (this includes techniques or standardized protocols for targeted exams where dose is matched to indication/reason for exam; i.e. extremities or head) *Use of iterative reconstruction technique DLP: 705 mGy-cm FINDINGS: LUNG BASES: The visualized lung bases are unremarkable. LIVER, GALLBLADDER, AND BILIARY TREE: The liver is normal in size, shape, and attenuation. No focal hepatic lesion or biliary ductal dilatation is present. The gallbladder is unremarkable with no evidence of radiopaque gallstones, gallbladder wall thickening, or obvious pericholecystic inflammatory changes. PANCREAS: Unremarkable. SPLEEN: Unremarkable. ADRENAL GLANDS: Unremarkable. KIDNEYS AND URETERS: The kidneys are normal size, shape and position. There is interval right internal ureteral stent in good position. There are several small radiopaque calculi in the right distal ureter on axial image 77/3. The largest stone measuring approximately 5 mm. No radiopaque calculi seen within the right kidney. A few small radiopaque deformity calculi are seen lower pole left kidney. BLADDER: Unremarkable. GASTROINTESTINAL TRACT: There is scattered stool, diverticuli and gas seen throughout the colon without distention. The small bowel loops are normal caliber. Appendix is normal caliber. There is no free air or free fluid. ABDOMINAL WALL: No significant hernia is appreciated. LYMPH NODES: Normal. VASCULAR: Unremarkable. PELVIC VISCERA: There is a 3 cm left adnexal cyst likely ovarian origin on axial image 81/3. It is stable the uterus is anteverted and appears unremarkable. Small probable vascular calcification seen in the uterus. OSSEOUS STRUCTURES: No aggressive lytic or sclerotic process seen. CT/CT abdomen pelvis wo IV con IMPRESSION: There is interval right internal ureteral stent with a small radiopaque calculi in the distal ureter as described above. Small radiopaque calculi in mid and lower pole left kidney are stable. No radiopaque calculi seen in the right kidney. Right hydronephrosis has improved. Colonic diverticulosis without diverticulitis. Mild constipation. Fleischner guidelines were followed.
[2022-07-31 14:19] VITALS: BP 128/82; PULSE 83; RESP 16; TEMP 36; O2SAT 99; BMI 36.0
--- NOTE | 2022-07-31 14:19 | ED.ABDPAIN ---
HPI - Abdominal Pain General Chief Complaint: Urogenital-Female Stated Complaint: Pain From Kidney Stones Time Seen by Provider: 07/31/22 16:54 Source: patient Mode of arrival: ambulatory Limitations: no limitations History of Present Illness HPI narrative: 47-year-old female history of kidney stone, patient with known history of 12 mm calculus in the distal right ureter, patient is s/p stent placement to the right ureter, patient came back for intractable right flank pain, patient ran out of her pain medication at home. Patient declined any fever, no chills. Related Data Home Medications Medication Instructions Recorded Confirmed diltiazem HCl 300 mg 300 mg PO DAILY 07/16/22 07/16/22 capsule,extended release 24 hr docusate sodium 100 mg capsule 100 mg PO NEEDED PRN 07/16/22 07/16/22 (Colace) Constipation hydrochlorothiazide 12.5 mg tablet 12.5 mg PO Q2D 07/16/22 07/16/22 lisinopril 40 mg tablet 40 mg PO DAILY 07/16/22 07/16/22 metoprolol succinate 50 mg 50 mg PO DAILY 07/16/22 07/16/22 tablet,extended release 24 hr omeprazole 20 mg capsule,delayed 20 mg PO DAILY@0630 07/16/22 07/16/22 release Previous Rx's Medication Instructions Recorded levofloxacin 500 mg tablet 500 mg PO DAILY 7 days #7 tabs 07/18/22 oxycodone-acetaminophen 5 mg-325 1 tab PO Q6H PRN pain #6 tabs 07/18/22 mg tablet (Percocet) oxycodone 5 mg tablet 5 mg PO Q8H PRN pain #10 tabs 07/31/22 Allergies Allergy/AdvReac Type Severity Reaction Status Date / Time morphine [MORPHINE] Allergy Intermediate PAPLITATIONS, Verified 07/31/22 14:19 increased heart rate Review of Systems Review of Systems All other systems are reviewed and are negative Constitutional: Reports as per HPI and Reports no additional constitutional complaints Eyes: Reports as per HPI and Reports no additional eye complaints Reports system reviewed and no additional complaints, except as documented Cardiovascular: Reports as per HPI and Reports no additional cardiovascular complaints Respiratory: Reports as per HPI and Reports no additional respiratory complaints Gastrointestinal: Reports as per HPI and Reports no additional gastrointestinal complaints Genitourinary: Reports no additional female genitourinary complaints Musculoskeletal: Reports no additional musculoskeletal complaints Skin/Breast: Reports system reviewed and no additional complaints, except as docu Psychiatric: Reports no additional psychiatric complaints Endocrine: Reports no additional endocrine complaints Hematologic/Lymphatic: Reports no additional hematologic/lymphatic complaints Allergic/Immunologic: Reports no additional allergic/immunologic complaints Reports system reviewed and no additional complaints, except as documented and Reports Abnormal speech present [facility] Past Medical History Medical History HTN (hypertension) Social History Social History Household Members: Spouse Do you presently have visiting nurse or other home services: No Alcohol intake: never Patient Tobacco Use Status: Former Tobacco user Quit Date: 2016 Tobacco use type: Cigarette Years Smoked: 11 Smoked in Last 30 Days: No Second Hand Smoke Exposure: No Use of substances other than those prescribed or required for medical reasons: No Advance Directives: No Advance Directives Information Provided: No Patient : No service: No Current occupational status: unemployed 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 Blood pressure normal. Heart rate normal. Respiration rate normal. Temperature normal. Oxygen saturation normal. Appearance: Alert. Oriented X3. No acute distress. Head: Normal external exam. Normocephalic. Atraumatic. No Lai signs noted. No raccoon eyes noted Eyes: PERRLA. EOMI. Conjunctiva and sclera normal. Eyelids normal. ENT: TM's Normal. Pharynx normal. Uvula midline. Moist mucous membranes. No trismus noted. No drooling noted. No muffled voice noted. Neck: Normal inspection. Neck supple. FROM. No adenopathy. Thyroid Normal. No meningeal signs. No neck mass noted. CVS: Normal heart rate and rhythm. Heart sound normal. No murmurs noted. Pulses normal throughout. Respiratory: No respiratory distress. Painless inspiration. Breath sounds normal. No wheezes/rales/rhonchi noted. Chest nontender. No accessory muscle usage noted or decreased air movement noted. Abdomen: Soft and nontender. Bowel sounds normal in all 4 quadrants. No distention noted. No organomegaly noted. No visible injury noted. Back: R CVA tenderness. Full range of motion noted. Skin: Skin warm and dry. Normal skin color. Normal skin turgor. No rashes/lesions/lacerations noted. Extremities: No lower extremity edema. Extremities exhibit normal range of motion. Extremities nontender. Neuro: Oriented X 3. Cranial nerve exam: II-XII are grossly intact No motor deficit. No sensory deficit. Reflexes normal. Course Course Course Narrative: RME: 47yo F w/PMHx 12mm right distal ureter stone s/p stent placement on 07/17 presenting to the ED complaining of persistent/worsening right flank pain since yesterday Labs, UA, repeat CT ordered Full HPI, ROS and PE to be performed by primary ED provider. Reevaluation(s) Reevaluation #1: 12 mm right distal ureteric stone, status post stent placement in the right ureter patient return after pain medication when out and the pain is becoming unbearable. Patient is pain is under better control with Dilaudid will discharge with oxycodone, no UTI, has an appointment with Urology in 2 days. Medical Decision Making Differential Diagnosis Differential Diagnoses: The differential diagnosis associated with the presentation includes (UTI, pyelonephritis, obstructing ureteric stone, electrolytes abnormalities, anemia.) Admission/Observation Consideration of admission/observation: Escalation of care including admission/observation considered Lab Data MDM Lab Attestation statement: I reviewed the patient's lab results. 07/31/22 14:29 07/31/22 14:29 Labs: Lab Results 07/31/22 07/31/22 07/31/22 Range/Units 14:29 14:29 14:29 RBC 4.89 (4.20-5.50) X10*6/uL Hgb 13.5 (12.0-16.0) g/dl Hct 41.4 (37.0-47.0) % MCV 84.7 (80.0-98.0) fL MCH 27.6 (27.0-33.0) pg MCHC 32.6 (31.0-35.0) g/dl RDW 14.4 (11.0-16.0) % Plt Count 322 (160-400) X10*3/uL MPV 9.4 (9.4-12.3) fL Immature Gran % (Auto) Cancelled Neut % (Auto) Cancelled Lymph % (Auto) Cancelled [place] % (Auto) Cancelled Eos % (Auto) Cancelled Baso % (Auto) Cancelled Lymph # (Auto) Cancelled [place] # (Auto) Cancelled Eos # (Auto) Cancelled Baso # (Auto) Cancelled Abs Immat Gran (auto) Cancelled Absolute Neuts (auto) Cancelled Absolute Nucleated RBC 0.000 (0.0-0.012) X10*3/uL Nucleated RBC % (auto) 0.0 (0.0-0.2) /100WBC Neutrophils % (Manual) 58 (45-73) % Band Neutrophils % 1 L (3-5) % Lymphocytes % (Manual) 30 (20-40) % Monocytes % (Manual) 6 (2-11) % Eosinophils % (Manual) 5 H (0-4) % Platelet Estimate NORMAL (NORMAL) Plt Morphology Comment NORMAL RBC Morphology NOTED Ovalocytes 1+ (5-14) /OIF Acanthocytes (Spur) 2+ (3-5) /OIF Sodium 141 (135-145) mmol/L Potassium 4.4 (3.3-5.1) mmol/L Chloride 108 (96-108) mmol/L Carbon Dioxide 25 (22-29) mmol/L Anion Gap 12 (12-20) BUN 10 (9-16) mg/dL Creatinine 0.74 (0.5-1.4) mg/dL Estim Creat Clear Calc 98.6 Estimated GFR > 60 Random Glucose 104 (60-115) mg/dL Calcium 9.8 (8.4-10.2) mg/dL Magnesium 2.2 (1.6-2.6) mg/dL Total Bilirubin 0.5 (0.0-1.0) mg/dL Direct Bilirubin 0.1 (0.0-0.5) mg/dL AST 22 (5-31) U/L ALT 24 (0-31) U/L Alkaline Phosphatase 69 (39-117) U/L Total Protein 7.5 (6.5-8.0) g/dL Albumin 4.3 (3.5-5.0) g/dL Lipase 22 (8-78) U/L Urine Color Yellow Urine Appearance Clear Urine pH 6.5 (5.0-9.0) Ur Specific [place] <= 1.005 (1.005-1.025) Urine Protein Trace (Neg-Trace) mg/dL Urine Glucose (UA) Negative (Negative) mg/dL Urine Ketones Negative (Negative) mg/dL Urine Blood Moderate (2+) H (Negative) Urine Nitrite Negative (Negative) Ur Leukocyte Esterase Trace H (Negative) Urine RBC 3-5 H (0-2) /HPF Urine WBC 0-5 (0-5) /HPF Ur Squamous Epith Cells 3-5 (0-2) /HPF Urine Bacteria None Seen (None Seen) Hyaline Casts 0-2 (0-2) /LPF Independent Interpretation I performed an independent interpretation of an: CT Scan (Abdomen pelvis: Improvement of the right Hydronephrosis.) Radiology Impression Discussion of test interpretation with radiology: I have reviewed the radiologist's reading. Medications Administered Generic Name Dose Route Start Last Admin Trade Name Freq PRN Reason Stop Dose Admin Sodium Chloride 1,000 mls @ 999 mls/hr 07/31/22 16:58 07/31/22 17:19 Ns IV 07/31/22 17:58 999 mls/hr .Q1H1M ONE Administration Discontinued Medications Generic Name Dose Route Start Last Admin Trade Name Freq PRN Reason Stop Dose Admin Hydromorphone HCl 2 mg 07/31/22 16:58 07/31/22 17:19 Hydromorphone Hcl 2 Mg/Ml Vial IVPUSH 07/31/22 16:59 2 mg ONCE ONE Administration Protocol Ketorolac Tromethamine 30 mg 07/31/22 16:58 07/31/22 17:20 Ketorolac Tromethamine 30 Mg/Ml Vial IVPUSH 07/31/22 16:59 30 mg ONCE ONE Administration Discharge Plan Discharge Clinical Impression: Renal colic on right side Patient Disposition: Home, Self-Care Instructions: Renal Colic (ED) Prescriptions: New oxycodone 5 mg tablet 5 mg PO Q8H PRN (Reason: pain) Qty: 10 0RF Rx Instructions: Partial Fill upon patient request. No Action hydrochlorothiazide 12.5 mg Tablet 12.5 mg PO Q2D omeprazole 20 mg Capsule,Delayed Release(Dr/Ec) 20 mg PO DAILY@0630 lisinopril 40 mg Tablet 40 mg PO DAILY metoprolol succinate 50 mg Tablet Extended Release 24 Hr 50 mg PO DAILY diltiazem HCl 300 mg Capsule,Extended Release 24hr 300 mg PO DAILY docusate sodium [Colace] 100 mg Capsule 100 mg PO NEEDED PRN (Reason: Constipation) levofloxacin 500 mg tablet 500 mg PO DAILY 7 Days Qty: 7 0RF oxycodone-acetaminophen [Percocet] 5-325 mg tablet 1 tab PO Q6H PRN (Reason: pain) Qty: 6 0RF Rx Instructions: Partial Fill upon patient request. Referrals: Alex Sheriff MD [Primary Care Provider] - Filiberto Yin MD [Physician] -
[2022-07-31 14:42] LABS: Appearance Urine Clear; Color Urine Yellow; Glucose Urine UA Negative (Negative); Leukocyte Esterase Urine Trace (Negative); Nitrite Urine Negative (Negative); PH 6.5 (5.0-9.0); Specific Gravity - Urine <= 1.005 (1.005-1.025); UMIC TRIGGER UACC YES; Urine Blood Moderate (2+) (Negative); Urine Ketones Negative (Negative); Urine Protein Trace mg/dL (Neg-Trace)
[2022-07-31 14:45] LABS: Hematocrit 41.4 % (37.0-47.0); Hemoglobin 13.5 g/dl (12.0-16.0); Mean Corpuscular HGB Conc 32.6 g/dl (31.0-35.0); Mean Corpuscular Hemoglobin 27.6 pg (27.0-33.0); Mean Corpuscular Volume 84.7 fL (80.0-98.0); Mean Platelet Volume 9.4 fL (9.4-12.3); Platelet Count 322 X10*3/uL (160-400); Red Blood Count 4.89 X10*6/uL (4.20-5.50); Red Cell Distribution Width 14.4 % (11.0-16.0)
[2022-07-31 14:46] LABS: WBC ABN SCTR FOR CBC 1
[2022-07-31 14:59] LABS: Alanine Aminotransferase 24 U/L (0-31); Albumin Level 4.3 g/dL (3.5-5.0); Alkaline Phosphatase 69 U/L (39-117); Anion Gap 12 (12-20); Aspartate Amino Transferase 22 U/L (5-31); Bilirubin Direct 0.1 mg/dL (0.0-0.5); Bilirubin Total 0.5 mg/dL (0.0-1.0); Blood Urea Nitrogen 10 mg/dL (9-16); Calcium 9.8 mg/dL (8.4-10.2); Carbon Dioxide 25 mmol/L (22-29); Chloride 108 mmol/L (96-108); Creatinine Clr Calc Pharmacy 98.6; Estimated Glomerular Filt Rate > 60; Glucose Random 104 mg/dL (60-115); Lipase 22 U/L (8-78); Magnesium 2.2 mg/dL (1.6-2.6); Potassium 4.4 mmol/L (3.3-5.1); Sodium 141 mmol/L (135-145); Total Protein 7.5 g/dL (6.5-8.0)
[2022-07-31 15:11] LABS: Band Neutrophils Percent 1 % (3-5); Eosinophils Percent Manual 5 % (0-4); Lymphocytes Percent Manual 30 % (20-40); Monocytes Percent Manual 6 % (2-11); Neutrophils Percent Manual 58 % (45-73)
[2022-07-31 15:13] LABS: Bacteria Urine None Seen (None Seen); Hyaline Casts Urine 0-2 /LPF (0-2); WBC Urine 0-5 /HPF (0-5)
[2022-07-31 15:14] LABS: RBC Morphology NOTED
[2022-07-31 15:15] LABS: Acanthocytes 2+ (3-5) /OIF; Ovalocytes 1+ (5-14) /OIF
[2022-07-31 15:17] LABS: Platelet Estimate NORMAL (NORMAL); Platelet Morphology Comment NORMAL
[2022-07-31 16:39] VITALS: BP 129/78; PULSE 72; RESP 16; TEMP 36.6; O2SAT 98
[2022-07-31] MEDS: 0.9 % Sodium Chloride 1,000 ML 999 ML IV ×2 (17:19→18:46)
[2022-07-31] MEDS: HYDROmorphone HCl 2 MG/ML VIAL IVPUSH (17:19)
[2022-07-31] MEDS: Ketorolac Tromethamine 30 MG/ML VIAL IVPUSH (17:20)
[2022-07-31] MEDS: ondansetron HCL 4 MG/2 ML VIAL IVPUSH (18:16)
--- NOTE | 2022-07-31 18:17 | PC.NURSE ---
pt noted to be acitvely vomiting on rounds. one time dose zofran ordered standing order.
[2022-07-31 18:23] VITALS: BP 179/65; PULSE 75; RESP 18; TEMP 36.8; O2SAT 97
[2022-07-31 19:04] VITALS: BP 112/60; PULSE 65; RESP 16; TEMP 36.5; O2SAT 97
--- NOTE | 2022-07-31 19:05 | MHC.EDTECH ---
PT HAD AN INCONIENT EPISODE ,BEDDING CHANGE ,PT WAS CHANGE INTO CLEAN GOWN ,WARM BLANKET [id number] ,VITALS SIGN TAKEN .
[2022-07-31 19:20] LABS: Eosinophils Absolute Manual 0.5 X10*3/uL (0.0-0.4); Monocytes Absolute Manual 0.6 X10*3/uL (0.1-1.2); Neutrophils Absolute Manual 5.9 X10*3/uL (2.0-8.3)
--- NOTE | 2022-07-31 19:36 | PC.NURSE ---
assumed care of patient at 1900 - pt still vomiting after phenergan administration. MD Quinn made aware. ordering 10mg reglan iv. will CTM.
[2022-07-31] MEDS: Metoclopramide HCl 10 MG/2 ML VIAL IVPUSH (19:42)
[2022-07-31 19:50] VITALS: BP 109/59; PULSE 72; RESP 16; TEMP 36.6; O2SAT 98
--- NOTE | 2022-07-31 19:51 | MHC.EDTECH ---
2000 ROUNDING DONE ,VITALS SIGN TAKEN ,REPEATED LABS DRAWN AND SENT TO LAB.
[2022-07-31 20:21] LABS: HCG Quantitative < 2 mIU/mL
== END 2022-07-31 20:36 | disposition home or self-care (01) ==
PROVIDERS: Physician Assistant; Emergency Provider Emergency Medicine; PCP Internal Medicine
DX: N23 Unspecified renal colic (principal); Z79.899 Other long term (current) drug therapy
CPT/HCPCS: 36415; 74176; 80048; 80076; 81001; 83690; 83735; 84702; 85007; 85027; 96361; 96365; 96375; 99284; 99285; J1170; J1885; J2405; J2550; J2765

== ENCOUNTER → 2022-08-03 10:08 | Outpatient (BNVA) | payer OTHER, SELFPAY | PROVIDERS: PCP Internal Medicine; Visit Provider Urology | DX: N20.1 Calculus of ureter (principal); N20.0 Calculus of kidney | CPT/HCPCS: 99212 ==

== ENCOUNTER 2022-08-07 10:13 | Day surgery (SDC) | payer OTHER, SELFPAY ==
[2022-08-07] VITALS (12 sets, daily range): BP systolic 126–153; BP diastolic 69–101; PULSE 76–113; RESP 16–20; TEMP 36.1–36.8; O2SAT 97–98; BMI 32.4
--- NOTE | ~2022-08-07 | FL_ITS ---
EXAMINATION: XR FLUOROSCOPY WITH IMAGES CLINICAL INFORMATION: Cysto, ureter, retro, laser. COMPARISON: CT 07/31/2022 of the abdomen and pelvis TECHNIQUE: Fluoroscopy Supervised By: Dr. Long. Fluoroscopy Time: 19.4 seconds. Cumulative Dose: 7.82 mGy. DAP: Gycm2. Images: 2. FINDINGS: Images demonstrate a right internal ureteral stent. FL/FL guidance in OR IMPRESSION: Fluoroscopy guidance for urology procedure.
[2022-08-07 10:57] LABS: UPreg QC Valid YES; Urine Pregnancy NEGATIVE (NEGATIVE)
--- NOTE | 2022-08-07 12:41 | P.CONAN_ITS ---
[facility] Active Problems Active Problems: All Active Problems (Updated 08/03/22 @ 10:45 by Ginny Patterson) Patellofemoral syndrome of right knee (Acute) Urinary tract infection (Acute) Hydronephrosis with ureteral calculus (Acute) Right ureteral stone (Acute) Left renal stone (Acute) Past Medical History Medical History HTN (hypertension) Family History Family history of problems with anesthesia: No Surgical History Surgical History Hx of cystoscopy History of Problems with Anesthesia: No Social History Social History Household Members: Spouse Do you presently have visiting nurse or other home services: No Alcohol intake: never Patient Tobacco Use Status: Former Tobacco user Quit Date: 2016 Tobacco use type: Cigarette Years Smoked: 11 Second Hand Smoke Exposure: No Are you DNR?: No Advance Directives: No Advance Directives Information Provided: Yes Nutrition Risks: No Nutritional Risk service: No Current occupational status: unemployed 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 Meds Allergies Allergy/AdvReac Type Severity Reaction Status Date / Time morphine [MORPHINE] Allergy Intermediate PAPLITATIONS, Verified 08/07/22 11:02 increased heart rate Active Medications: Current Medications Lactated Ringer's (Lr) 1,000 mls @ 50 mls/hr IVCONT .Q20H [facility] Home Medications Medication Instructions Recorded Confirmed Last Taken Type diltiazem HCl 300 mg 300 mg PO DAILY 07/16/22 08/03/22 07/15/22 History capsule,extended release 24 hr docusate sodium 100 mg capsule 100 mg PO NEEDED PRN 07/16/22 08/03/22 2 Weeks Ago History (Colace) Constipation ~07/02/22 hydrochlorothiazide 12.5 mg tablet 12.5 mg PO Q2D 07/16/22 08/03/22 Unknown History lisinopril 40 mg tablet 40 mg PO DAILY 07/16/22 08/03/22 07/15/22 History metoprolol succinate 50 mg 50 mg PO DAILY 07/16/22 08/03/22 07/15/22 History tablet,extended release 24 hr omeprazole 20 mg capsule,delayed 20 mg PO DAILY@0630 07/16/22 08/03/2207/15/23 History release Exam Exam Date and Time: August 07, 2022 1241 Height,Weight and Vital Signs: Height 5 ft 2 in Weight 80.286 kg Last Vital Signs Temp 98.2 F 08/07/22 11:01 Pulse 79 08/07/22 11:01 Resp 18 08/07/22 11:01 BP 145/98 H 08/07/22 11:01 Pulse Ox 97 08/07/22 11:01 O2 Del Method Room Air 08/07/22 11:01 Pertinent Lab Results Pertinent Lab Results: Laboratory Tests 08/07/22 10:30 Urine Test NEGATIVE Airway Mallampati Class: II TM Dist: >3cm Neck ROM: Full Loose/Missing/Broken Teeth: No Heart: RRR Lungs: CTA Assessment and Plan Assessment Anesthesia Assessment: Anesthesia Plan Discussed and Chart Reviewed Final Anesthetic Review Family History of Problems with Anesthesia: No History of Problems with Anesthesia: No NPO: Yes ASA Class: II Final Preanesthetic Review: Meds/Allgs Chart Reviewed, Consent Obtained/Reviewed and Anes Risks/Benef Reviewed Patient Risk: Low Procedure Risk: Low Anesthetic Plan Anesthetic Plan: GA Disposition: Standard PACU
--- NOTE | 2022-08-07 13:53 | P.OP_ITS ---
Operative Note Operative Note Date of Service: 08/07/22 Narrative: PreOperative Diagnosis:?? right ureteral stone, sp right ureteral stent Post Operative Diagnosis:?? right ureteral stone, sp right ureteral stent Procedure: Cystoscopy, right ureteroscopy laser lithotripsy stent exchange, size 6 [place]an by 24 cm Surgeon:?Dr Matteo Littlejohn Anesthesia:? General Indications for procedure: Here for stone fragmentation. Procedure: After informed consent was verified the patient was brought to the operating placed on the OR table in supine position.? General Anesthesia was administered per protocol.? The patient was placed in lithotomy position, prepped and draped in the usual sterile fashion.? Safety pause time-out and side of surgery confirmed.? Antibiotics confirmed. A 22 [place]an cystoscope was inserted transurethrally, The bladder was visualized.? Both ureteric orifices were in normal position. The right ureteral stent was curled in the bladder. The? distal end of the ureteral stent was grasped with the flexible grasping forceps. The stent was pulled retrograde through the urethra. A guidewire was passed through the stent. The cystoscope was removed, leaving the guidewire in place. The guidewire was used as the safety and was attached to the draping. The semi rigid ureteroscope was passed transurethrally to the level of the stone in the distal ureter. there were inflammatory changes noted in the area of the stone. Laser lithotripsy of the stone was done using the 365 fiber with a combination of dusting settings 0.3 J by 20 hertz and 0.8 joules by 6 hertz There was good fragmentation of the stone. The 0 degree basket was used to remove the stone fragments, which were sent for analysis. The ureteroscope was removed. The cystoscope was passed over the safety guidewire. A? 6 [place] by 24 cm stent was placed into the ureter and renal pelvis under a combination of fluoroscopy and direct visualization. Plan to keep stent in place for 2 weeks due to ureteral inflammatory changes. The bladder was emptied.? The rigid cystoscope was removed. ? The patient tolerated the procedure well and was brought to the recovery room in stable condition. Complications: None Drains: Ureteral stent as dictated above
[2022-08-07] MEDS: ondansetron HCL 4 MG/2 ML VIAL IVPUSH (14:11)
[2022-08-07] MEDS: oxyCODONE HCl Immed Release 5 MG TABLET PO (14:26)
[2022-08-07] MEDS: fentaNYL citrate/PF 100 MCG/2 ML VIAL 25 MCG IVPUSH (15:05)
[2022-08-07] MEDS: Ketorolac Tromethamine 15 MG/ML VIAL IVPUSH (15:30)
[2022-08-07] MEDS: Acetaminophen 325 MG TABLET 650 MG PO (15:35)
[2022-08-11 22:59] LABS: Stone Source RIGHT URETERAL STONE
== END 2022-08-07 15:41 | disposition home or self-care (01) ==
PROVIDERS: Anesthesiology; PCP Internal Medicine; Visit Provider Urology
PROC: (CPT 52356; principal; 2022-08-07 11:50)
DX: N20.1 Calculus of ureter (principal); Z96.0 Presence of urogenital implants; Z87.442 Personal history of urinary calculi; I10 Essential (primary) hypertension; Z79.899 Other long term (current) drug therapy; Z88.8 Allergy status to other drugs, medicaments and biological substances; Z87.891 Personal history of nicotine dependence
CPT/HCPCS: 52356; 81025; 82365; 88300; C1758; C1769; C2617; J0690; J1100; J1885; J2250; J2405; J2550; J3010; Q9967

== ENCOUNTER → 2022-08-23 10:30 | Outpatient (BNVA) | payer OTHER, SELFPAY | PROVIDERS: PCP Internal Medicine; Visit Provider Urology | DX: N20.0 Calculus of kidney (principal) | CPT/HCPCS: 52310 ==

== ENCOUNTER 2022-09-25 11:41 | Outpatient (REF) | payer OTHER, SELFPAY ==
[2022-10-02 05:09] LABS: HPV mRNA E6/E7 rflx Not Detected (Not Detected)
== END 2022-09-25 11:42 | disposition home or self-care (01) ==
LOC: HO.HHCLNP 11:41
PROVIDERS: Visit Provider Advanced Practice Midwife
DX: Z12.4 Encounter for screening for malignant neoplasm of cervix (principal)
CPT/HCPCS: 87624; 88142

== ENCOUNTER 2022-09-27 10:19 | Outpatient (REF) | payer OTHER, SELFPAY | END 2022-09-27 10:20 | disposition home or self-care (01) | LOC: HO.HHCLNP 10:19 | PROVIDERS: Visit Provider Advanced Practice Midwife | DX: Z13.89 Encounter for screening for other disorder (principal) ==

== ENCOUNTER 2022-10-01 16:00 | Outpatient (REF) | payer OTHER, SELFPAY ==
[2022-10-02 01:39] LABS: Anion Gap 12 (12-20); Blood Urea Nitrogen 11 mg/dL (9-16); Calcium 9.6 mg/dL (8.4-10.2); Carbon Dioxide 23 mmol/L (22-29); Chloride 106 mmol/L (96-108); Estimated Glomerular Filt Rate > 60; Glucose Random 78 mg/dL (60-115); Magnesium 2.2 mg/dL (1.6-2.6); Potassium 4.2 mmol/L (3.3-5.1); Sodium 137 mmol/L (135-145)
[2022-10-02 02:02] LABS: Vitamin B12 283 pg/mL (200-900)
== END 2022-10-01 16:01 | disposition home or self-care (01) ==
LOC: HO.CHCLDS 16:00
PROVIDERS: Visit Provider Internal Medicine
DX: R20.2 Paresthesia of skin (principal)
CPT/HCPCS: 36415; 80048; 82607; 83735

== ENCOUNTER 2022-10-18 11:52 | Outpatient (REF) | payer OTHER, SELFPAY | END 2022-10-18 11:53 | disposition home or self-care (01) | LOC: HO.MAMMO 11:52 | PROVIDERS: PCP Internal Medicine; Visit Provider Internal Medicine | DX: Z12.31 Encounter for screening mammogram for malignant neoplasm of breast (principal) | CPT/HCPCS: 77063; 77067 ==

== ENCOUNTER → 2022-10-18 12:00 | Outpatient (BNV) | payer OTHER, SELFPAY | PROVIDERS: PCP Internal Medicine; Visit Provider Radiology Diagnostic Radiology | DX: Z12.31 Encounter for screening mammogram for malignant neoplasm of breast (principal) | CPT/HCPCS: 77063; 77067 ==

== ENCOUNTER 2023-09-03 08:30 | Emergency (ER) | payer OTHER, SELFPAY ==
--- NOTE | ~2023-09-03 | XR_ITS ---
EXAMINATION: XR LUMBOSACRAL SPINE CLINICAL INFORMATION: Lumbar pain COMPARISON: None available. TECHNIQUE: Three views of the lumbosacral spine. FINDINGS: Alignment normal. No fracture or destructive process. Vertebral body heights and disc space heights are preserved. There does appear to be faint calcifications up to 3 mm overlying the left mid kidney. XR/XR lumbar spine 2-3V IMPRESSION: Unremarkable lumbar spine evaluation.
[2023-09-03 08:44] VITALS: BP 143/95; PULSE 77; RESP 16; TEMP 36.1; O2SAT 99; BMI 35.9
--- NOTE | 2023-09-03 09:14 | ED_ITS ---
HPI - Back Pain/Injury General Chief Complaint: Back Pain/Injury Stated Complaint: lower back pain into R leg Time Seen by Provider: 09/03/23 09:04 Source: patient, RN notes reviewed and old records reviewed Mode of arrival: ambulatory Limitations: no limitations History of Present Illness ED Provider: MARYLU ANDERSON PA-C HPI Narrative: 48 year old female with pmhx significant for hydronephrosis with bilateral ureteral calculi presents to the ED today for evaluation of bilateral lower back pain x1 week. Reports pain has been constant since onset and exacerbated with movement. Pain is now starting to radiate down her right leg. She has been taking tylenol and motrin at home with minimal relief, last dose of these medications were last night. Denies ever having this pain before. Denies known trauma/ injury. Admits to nephrolithiasis one year ago requiring extraction. Denies chance of as she is currently on her menstrual period. Denies previous spinal surgeries. Denies IV drug use. Denies fever, chills, neck pain, bowel or bladder incontinence or retention, numbness/tingling/weakness in the lower extremities, dysuria, hematuria, vaginal discharge, saddle anesthesia. Related Data Home Medications ?Medication ?Instructions ?Recorded ?Confirmed diltiazem HCl 300 mg 300 mg PO DAILY 07/16/22 08/23/22 capsule,extended release 24 hr docusate sodium 100 mg capsule 100 mg PO NEEDED PRN 07/16/22 08/23/22 (Colace) Constipation hydrochlorothiazide 12.5 mg tablet 12.5 mg PO Q2D 07/16/22 08/23/22 lisinopril 40 mg tablet 40 mg PO DAILY 07/16/22 08/23/22 metoprolol succinate 50 mg 50 mg PO DAILY 07/16/22 08/23/22 tablet,extended release 24 hr omeprazole 20 mg capsule,delayed 20 mg PO DAILY@0630 07/16/22 08/23/22 release Previous Rx's ?Medication ?Instructions ?Recorded cyclobenzaprine 5 mg tablet 5 mg PO Q8H PRN muscle pain #7 tabs 09/03/23 lidocaine 5 % topical patch 1 patch topical DAILY #15 ea 09/03/23 (Lidoderm) naproxen 500 mg tablet 500 mg PO Q8-12H PRN pain (scale 09/03/23 score 1-3) #20 tabs nitrofurantoin 100 mg PO BID 7 days #14 caps 09/03/23 monohydrate/macrocrystals 100 mg capsule Allergies Allergy/AdvReac Type Severity Reaction Status Date / Time morphine [MORPHINE] Allergy Intermediate PAPLITATIONS, Verified 09/03/23 08:48 increased heart rate Review of Systems Review of Systems: Constitutional: No fever, chills, fatigue, night sweats, weight changes ENT/Mouth: No ear pain, hearing loss, nasal congestion, sinus pain, rhinorrhea, sore throat Eyes: No eye pain, swelling, redness, vision changes, discharge Cardio: No chest pain, palpitations, GONZALEZ, orthopnea, peripheral edema Pulm: No SOB, cough, sputum, wheezing, dyspnea, hemoptysis GI: No nausea, vomiting, hematemesis, abdominal pain, diarrhea, constipation, hematochezia, melena : No irregular bleeding, dysuria, frequency, urgency, hesitancy, hematuria, flank pain, urinary flow changes, urinary incontinence or retention MSK: +back pain, No neck pain, joint pain, myalgias Skin: No lesions, rashes Neuro: No weakness, numbness, paresthesias, LOC, dizziness, headache All other systems reviewed and are negative. [facility] Past Medical History Attestation statement: The following information was validated with the patient. 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 Physical Exam Vital Signs: Vital Signs: Last Vital Signs Temp 96.9 F 09/03/23 12:14 Pulse 77 09/03/23 12:14 Resp 16 09/03/23 12:14 BP 143/95 H 09/03/23 12:14 Pulse Ox 99 09/03/23 12:14 O2 Del Method Room Air 09/03/23 12:14 BMI result Body Mass Index 35.9 Vital signs stable, afebrile Const: General: cooperative, healthy appearing, comfortable, no acute distress, alert, awake and Physically active Orientation/consciousness: patient oriented x3 HEENT: Head: Yes normal to inspection, Yes normocephalic and Yes atraumatic Eyes: General: appearance normal, both eyes and all related structures Pupils: Equal, round and reactive pupils present EOM: EOMs intact bilaterally Neck: Other: + no cervical midline spinous tenderness or step-off deformity Neck: Yes normal visual inspection, Yes full ROM and Yes no meningeal signs Resp: Effort & Inspection: normal respiratory effort Auscultation: clear to auscultation bilaterally Cardio: Rate: regular rate Rhythm: regular rhythm GI: Inspection: Yes normal to inspection Palpation (GI): Soft to palpation and nontender : General: Yes no CVA tenderness Back/Spine/Pelvis: Other: No midline spinous tenderness or step off deformity. there is bilateral lumbar paraspinal muscle tenderness without palpable mass/ spasm. Back: no CVA tenderness Skin: General skin exam: no rashes or lesions noted Neuro: Other: Strength 5/5 intact throughout.? No saddle anesthesia.? Sensation intact to light touch.? Neurovascular intact distally.? General: patient oriented x3, gait normal and no meningeal signs Cranial nerves: Yes Equal, round and reactive pupils present Gait exam (Neuro): Normal gait present Course Course Course Narrative: 1139-- xr lumbar spine unremarkable. UA positive for infection > will start patient on nitrofurantoin. UA also positive for blood however this is likely a result of current menstruation. > on re-evaluation, patient reports significant improvement in pain with toradol and lido patch. discussed all work up results with patient. she is ambulating with steady gait. Patient has remained stable throughout ED visit today. Discussed worrisome signs and symptoms and when to return to the ED. All questions answered at this time. Patient is agreeable with disposition and stable for discharge. Medications Administered Discontinued Medications Generic Name Dose Route Start Last Admin Trade Name Freq PRN Reason Stop Dose Admin Ketorolac Tromethamine 30 mg 09/03/23 09:19 09/03/23 09:31 Ketorolac Tromethamine 30 Mg/Ml Vial IM 09/03/23 09:20 30 mg ONCE ONE Administration Lidocaine 1 patch 09/03/23 09:19 09/03/23 09:30 Lidocaine 4 % Patch Adh..Patch TRANSDERMA 09/03/23 09:20 1 patch ONCE ONE Administration Protocol Medical Decision Making Medical Decision Making [facility] Narrative: 48 year old female with pmhx significant for hydronephrosis with bilateral ureteral calculi presents to the ED today for evaluation of bilateral lower back pain x1 week. VSS. Afebrile. No midline spinous tenderness or step off deformity. there is bilateral lumbar paraspinal muscle tenderness without palpable mass/ spasm. NV intact distally. Sensation intact to light touch. Strength 5/5 intact. Bilateral patellar DTRs intact. Ambulating with steady gait. Abdomen soft, ND/NT. no rebound or guarding. no CVAT b/l. Differential diagnosis includes MSK sprain/strain, fracture, subluxation, disc herniation, sciatica, nephrolithiasis, renal colic, hydronphrosis, urinary tract infection. Unlikely cord compression, cauda equina, Guillain-Bouton, epidural abscess, pyelo. Plan for imaging, UA, and pain control. Differential Diagnosis Differential Diagnoses: The differential diagnosis associated with the presentation includes as above Admission/Observation Not indicated. Lab Data [facility] Lab Attestation statement: I reviewed the patient's lab results. as above Labs: Lab Results 09/03/23 Range/Units 11:17 Urine Color Yellow Urine Appearance Clear Urine pH 6.0 (5.0-9.0) Ur Specific [place] <= 1.005 (1.005-1.025) Urine Protein Negative (Neg-Trace) mg/dL Urine Glucose (UA) Negative (Negative) mg/dL Urine Ketones Negative (Negative) mg/dL Urine Blood Large (3+) H (Negative) Urine Nitrite Negative (Negative) Ur Leukocyte Esterase Small (1+) H (Negative) Urine RBC >20 H (0-2) /HPF Urine WBC 0-5 (0-5) /HPF Ur Squamous Epith Cells 0-2 (0-2) /HPF Urine Bacteria 4+ (None Seen) Hyaline Casts 0-2 (0-2) /LPF Urine Test NEGATIVE (NEGATIVE) Independent Interpretation I performed an independent interpretation of an: Plain X-Ray Interpretation: xr lumbar spine without fracture, agree with radiologist's interpretation. Radiology Impression Discussion of test interpretation with radiology: I have reviewed the radiologist's reading. Radiologist Impression: EXAMINATION: XR LUMBOSACRAL SPINE CLINICAL INFORMATION: Lumbar pain COMPARISON: None available. TECHNIQUE: Three views of the lumbosacral spine. FINDINGS: Alignment normal. No fracture or destructive process. Vertebral body heights and disc space heights are preserved. There does appear to be faint calcifications up to 3 mm overlying the left mid kidney. XR/XR lumbar spine 2-3V IMPRESSION: Unremarkable lumbar spine evaluation. External Record Review External record reviewed: Inpatient record Prescription Management I considered prescription management with: Pain Medication and Antibiotic (ceftin) Social Determinants Patient?s care significantly limited by Social Determinants of Health including: Other Social Determinant of Health Critical Care Time Critical Care Time Critical Care Time: No Discharge Plan Discharge Clinical Impression: Lumbar radiculopathy, Urinary tract infection Patient Disposition: Home, Self-Care Instructions: Lumbar Radiculopathy (ED), Back Pain (ED), Lower Back Exercises (ED) Additional Instructions: Your imaging studies today did not show acute fracture. Your pain is likely musculoskeletal. Avoid bending, lifting, or twisting. Use ice several times per day for 20 minutes at a time for the next 48 hours and then change to heat. Flexeril is a muscle relaxer. Take this at night as it makes you drowsy. Do not drive, drink alcohol, or operate machinery while taking it. Naproxen is an anti-inflammatory / pain medication. Take with food. Do not take this with Ibuprofen. Lidoderm patches are numbing patches. Apply to painful areas. In addition you may take Tylenol at home. Follow up with your primary care provider as needed If your pain worsens, if you develop new numbness, tingling, weakness, loss of bowel or bladder function call 911 or return to the ER immediately for evaluation. Additionally, your urine shows bacteria. Nitrofurantoin is an antibiotic that has been sent to your pharmacy. Take this as prescribed and do not miss any doses. You must complete the entire course of antibiotics. If you do not, there is a risk of the infection coming back or worsening. Follow up with your primary care provider as needed. If you develop a fever or new/ worsening symptoms call 911 or come back to the ER for further evaluation. Prescriptions: New naproxen 500 mg tablet 500 mg PO Q8-12H PRN (Reason: pain (scale score 1-3)) Qty: 20 0RF nitrofurantoin monohyd/m-cryst 100 mg capsule 100 mg PO BID 7 Days Qty: 14 0RF Rx Instructions: must administer with a meal/food lidocaine [Lidoderm] 5 % adhesive patch,medicated 1 patch topical DAILY Qty: 15 0RF Rx Instructions: leave on most painful area for up to 12 hrs cyclobenzaprine 5 mg tablet 5 mg PO Q8H PRN (Reason: muscle pain) Qty: 7 0RF No Action hydrochlorothiazide 12.5 mg Tablet 12.5 mg PO Q2D omeprazole 20 mg Capsule,Delayed Release(Dr/Ec) 20 mg PO DAILY@0630 lisinopril 40 mg Tablet 40 mg PO DAILY metoprolol succinate 50 mg Tablet Extended Release 24 Hr 50 mg PO DAILY diltiazem HCl 300 mg Capsule,Extended Release 24hr 300 mg PO DAILY docusate sodium [Colace] 100 mg Capsule 100 mg PO NEEDED PRN (Reason: Constipation) Interventions: ED Discharge Assessment Last Done: 09/03/23 12:14 Discharge Date/Time: 09/03/23 12:15 Print Language: Monegasque
[2023-09-03] MEDS: Lidocaine 4 % Patch ADH..PATCH 1 PATCH TRANSDERMA (09:30)
[2023-09-03] MEDS: Ketorolac Tromethamine 30 MG/ML VIAL IM (09:31)
[2023-09-03 11:29] LABS: Appearance Urine Clear; Color Urine Yellow; Glucose Urine UA Negative (Negative); Leukocyte Esterase Urine Small (1+) (Negative); Nitrite Urine Negative (Negative); Specific Gravity - Urine <= 1.005 (1.005-1.025); UMIC TRIGGER UACC YES; UPreg QC Valid YES; Urine Blood Large (3+) (Negative); Urine Ketones Negative (Negative); Urine Pregnancy NEGATIVE (NEGATIVE); Urine Protein Negative (Neg-Trace)
[2023-09-03 11:41] LABS: Bacteria Urine 4+ (None Seen); Hyaline Casts Urine 0-2 /LPF (0-2); RBC Urine >20 /HPF (0-2); Squamous Epithelial Cell Urine 0-2 /HPF (0-2); UACC Culture Trigger YES; WBC Urine 0-5 /HPF (0-5)
[2023-09-03 12:14] VITALS: BP 143/95; PULSE 77; RESP 16; TEMP 36.1; O2SAT 99
== END 2023-09-03 12:15 | disposition home or self-care (01) ==
PROVIDERS: Physician Assistant Medical; Emergency Provider Student in an Organized Health Care Education/Training Program; PCP Internal Medicine
DX: M54.16 Radiculopathy, lumbar region (principal); N39.0 Urinary tract infection, site not specified; M54.50 Low back pain, unspecified; Z79.899 Other long term (current) drug therapy
CPT/HCPCS: 72100; 81001; 81025; 87086; 87088; 87186; 96372; 99283; 99284; J1885

== ENCOUNTER 2023-09-17 15:33 | Outpatient (REF) | payer OTHER, SELFPAY ==
[2023-09-17 17:47] LABS: Appearance Urine Clear; Color Urine Yellow; Glucose Urine UA Negative (Negative); Leukocyte Esterase Urine Trace (Negative); Nitrite Urine Negative (Negative); PH 6.5 (5.0-9.0); UMIC TRIGGER UA YES; Urine Blood Negative (Negative); Urine Ketones Negative (Negative); Urine Protein Negative (Neg-Trace)
[2023-09-17 18:03] LABS: Bacteria Urine 4+ (None Seen); Hyaline Casts Urine 0-2 /LPF (0-2); RBC Urine 0-2 /HPF (0-2); Squamous Epithelial Cell Urine 0-2 /HPF (0-2); WBC Urine 0-5 /HPF (0-5)
== END 2023-09-17 15:34 | disposition home or self-care (01) ==
LOC: HO.CHCLDS 15:33
PROVIDERS: Visit Provider Internal Medicine
DX: N39.0 Urinary tract infection, site not specified (principal)
CPT/HCPCS: 81001; 87086; 87088; 87186

== ENCOUNTER 2023-10-24 11:24 | Outpatient (REF) | payer OTHER, SELFPAY ==
--- NOTE | ~2023-10-24 | MM_ITS ---
EXAMINATION: MM SCREENING DIGITAL BREAST TOMOSYNTHESIS, BILATERAL CLINICAL INFORMATION: Screening. Asymptomatic. COMPARISON: Mammography: Comparison is made with available priors TECHNIQUE: Digital breast mammography with tomosynthesis is performed in both the craniocaudal and mediolateral oblique views along with computer-aided detection (CAD). FINDINGS: There are scattered areas of fibroglandular density (ACR BI-RADS breast composition Category b). There are no significant masses, abnormal calcifications, or other abnormalities. MM/MM tomosynthesis screening BI IMPRESSION: No mammographic evidence of malignancy. ASSESSMENT: BI-RADS BI-RADS 1 - Negative RECOMMENDATION: Routine annual mammography screening. 1 year F/U This examination should not preclude the clinical evaluation of a suspicious palpable abnormality. This patient's information was entered into a reminder system with a target due date for their next mammogram. Electronically signed by: Penelope Johnson DO 11/10/2023 02:24 PM EDT
== END 2023-10-24 11:25 | disposition home or self-care (01) ==
LOC: HO.MAMMO 11:24
PROVIDERS: PCP Internal Medicine; Visit Provider Internal Medicine
DX: Z12.31 Encounter for screening mammogram for malignant neoplasm of breast (principal)
CPT/HCPCS: 77063; 77067

== ENCOUNTER → 2023-10-24 12:00 | Outpatient (BNV) | payer OTHER, SELFPAY | PROVIDERS: PCP Internal Medicine; Visit Provider Internal Medicine | DX: Z12.31 Encounter for screening mammogram for malignant neoplasm of breast (principal) | CPT/HCPCS: 77063; 77067 ==

== ENCOUNTER 2023-12-14 22:51 | Inpatient (IN) | payer OTHER, SELFPAY ==
--- NOTE | ~2023-12-14 | CT_ITS ---
EXAMINATION: CT ABDOMEN AND PELVIS WITHOUT CONTRAST CLINICAL INFORMATION: Left ureteral stone COMPARISON: CT abdomen and pelvis 07/31/2022 TECHNIQUE: Multidetector volumetric imaging was performed from the superior aspect of the liver through the pubic symphysis. Sagittal and coronal reformatted images were obtained on the technologist's workstation. This CT examination was performed using dose optimization techniques as appropriate, variously including the following: *Automated exposure control *Adjustment of mA and/or kV according to patient size (this includes techniques or standardized protocols for targeted exams where dose is matched to indication/reason for exam; i.e. extremities or head) *Use of iterative reconstruction technique DLP: 707 mGy-cm FINDINGS: LUNG BASES: The visualized lung bases are unremarkable. LIVER, GALLBLADDER, AND BILIARY TREE: The liver is enlarged at 18 cm with decreased attenuation consistent with hepatic steatosis. No focal hepatic lesion or biliary ductal dilatation is present. The gallbladder is unremarkable with no evidence of radiopaque gallstones, gallbladder wall thickening, or obvious pericholecystic inflammatory changes. PANCREAS: Unremarkable. SPLEEN: Unremarkable. ADRENAL GLANDS: Unremarkable. KIDNEYS AND URETERS: Left: There is left-sided moderate hydronephrosis along with dilatation of the left ureter down to the level of a 8 x 5 x 6 mm obstructing distal ureteral calculus just above the ureterovesical junction. There is a single 1.3 mm punctate nonobstructing left lower pole calculus (3:45). Right: There is no right hydronephrosis. No right renal calculi are seen. There is a small cortical fat density renal angiomyolipoma measuring 7 mm in size. No follow-up should be necessary. No concerning solid masses. BLADDER: Unremarkable. GASTROINTESTINAL TRACT: Marked diverticular changes are present throughout the colon without evidence of diverticulitis. The small and large bowel are otherwise unremarkable. The appendix is unremarkable. ABDOMINAL WALL: No significant hernia is appreciated. LYMPH NODES: No retroperitoneal lymphadenopathy. VASCULAR: Unremarkable. PELVIC VISCERA: The anteverted uterus is lobular consistent with known fibroids. An abnormal adnexal mass is not present. There is a 2.6 cm benign cyst in the right ovary. Small amount of free fluid present in the pelvis. OSSEOUS STRUCTURES: Unremarkable. CT/CT abdomen pelvis wo IV con IMPRESSION: 1. Obstructing 8 mm distal left ureteral calculus with moderate hydronephrosis. 2. Incidental note made of an enlarged fatty liver, small right renal angiomyolipoma, colonic diverticulosis without diverticulitis, uterine fibroids and a 2.6 cm benign right ovarian cyst. Fleischner guidelines were followed. Electronically signed by: Feroz Gallardo MD 12/15/2023 12:51 AM EDT
[2023-12-14 22:58] VITALS: BP 157/88; PULSE 100; RESP 20; TEMP 36.5; O2SAT 99
[2023-12-14 23:03] VITALS: BP 132/76; BP 157/88; PULSE 103; PULSE 78; RESP 24; TEMP 36.5; O2SAT 96; O2SAT 98; BMI 35.5
[2023-12-14 23:38] LABS: MANUAL DIFF FLAG NO
[2023-12-14 23:41] LABS: Basophils Absolute Auto 0.1 X10*3/uL (0.0-0.2); Basophils Percent Auto 0.5 % (0-2); Eosinophils Percent Auto 0.1 % (0-4); Hematocrit 38.4 % (37.0-47.0); Hemoglobin 13.1 g/dl (12.0-16.0); Imm Gran Abs Auto 0.08 X10*3/uL (0.00-0.03); Imm Gran Pct Auto 0.5 % (0.0-0.4); Lymphocytes Absolute Auto 1.7 X10*3/uL (1.2-4.9); Mean Corpuscular HGB Conc 34.1 g/dl (31.0-35.0); Mean Corpuscular Hemoglobin 28.1 pg (27.0-33.0); Mean Corpuscular Volume 82.4 fL (80.0-98.0); Mean Platelet Volume 9.5 fL (9.4-12.3); Monocytes Absolute Auto 0.8 X10*3/uL (0.1-1.2); Monocytes Percent Auto 4.6 % (2-11); Neutrophils Absolute Auto 14.4 x10*3/uL (2.0-8.3); Neutrophils Percent Auto 84.3 % (45-73); Platelet Count 290 X10*3/uL (160-400); Red Blood Count 4.66 X10*6/uL (4.20-5.50); Red Cell Distribution Width 14.8 % (11.0-16.0); White Blood Count 17.1 X10*3/uL (4.8-10.8)
[2023-12-14 23:42] LABS: Appearance Urine Cloudy; Color Urine Yellow; Glucose Urine UA 250 mg/dL (Negative); Leukocyte Esterase Urine Small (1+) (Negative); Nitrite Urine Positive (Negative); PH 5.5 (5.0-9.0); UMIC TRIGGER UACC YES; Urine Blood Moderate (2+) (Negative); Urine Ketones 40 mg/dL (Negative); Urine Protein 30 (1+) mg/dL (Neg-Trace)
[2023-12-14 23:44] LABS: Bacteria Urine 4+ (None Seen); Hyaline Casts Urine 0-2 /LPF (0-2); RBC Urine >20 /HPF (0-2); UACC Culture Trigger YES; UPreg QC Valid YES; Urine Pregnancy NEGATIVE (NEGATIVE); WBC Urine >50 /HPF (0-5)
[2023-12-14] MEDS: 0.9 % Sodium Chloride 500 ML IV (23:50)
[2023-12-14] MEDS: Ketorolac Tromethamine 15 MG/ML VIAL IVPUSH (23:51)
[2023-12-14] MEDS: LORazepam 2 MG/ML VIAL IVPUSH (23:51)
[2023-12-15] VITALS (9 sets, daily range): BP systolic 109–142; BP diastolic 58–93; PULSE 77–114; RESP 18–26; TEMP 36.4–37.9; O2SAT 94–98; BMI 37.4
[2023-12-15 00:06] LABS: Alanine Aminotransferase 30 U/L (0-31); Albumin Level 4.5 g/dL (3.5-5.0); Alkaline Phosphatase 67 U/L (39-117); Anion Gap 16 (12-20); Aspartate Amino Transferase 26 U/L (5-31); Bilirubin Total 0.4 mg/dL (0.0-1.0); Blood Urea Nitrogen 15 mg/dL (9-16); Calcium 9.5 mg/dL (8.4-10.2); Carbon Dioxide 17 mmol/L (22-29); Chloride 108 mmol/L (96-108); Creatinine Clr Calc Pharmacy 80.5; Estimated Glomerular Filt Rate > 60; Glucose Random 161 mg/dL (60-115); Lipase 17 U/L (8-78); Magnesium 1.9 mg/dL (1.6-2.6); Potassium 3.8 mmol/L (3.3-5.1); Sodium 137 mmol/L (135-145); Total Protein 7.3 g/dL (6.5-8.0)
--- NOTE | 2023-12-15 00:25 | ED.ABDPAIN ---
HPI - Abdominal Pain General Chief Complaint: Abdominal Pain Stated Complaint: ABD PAIN X1HR PER EMS Time Seen by Provider: 12/14/23 23:23 Source: patient Limitations: no limitations History of Present Illness ED Provider: Margarita Guadalupe PA-C HPI narrative: 48-year-old female with a history of kidney stones, morbid obesity presents with left flank pain prior to arrival. Patient states she was at [employer] when she developed severe left-sided discomfort. Pain over left flank radiates to left lower abdomen. Unable to describe the nature of her pain, but states it is severe and constant. Associated nausea. Denies dysuria, unknown if her urine is discolored, no fevers. Related Data Home Medications ?Medication ?Instructions ?Recorded ?Confirmed diltiazem HCl 300 mg 300 mg PO DAILY 07/16/22 08/23/22 capsule,extended release 24 hr docusate sodium 100 mg capsule 100 mg PO NEEDED PRN 07/16/22 08/23/22 (Colace) Constipation hydrochlorothiazide 12.5 mg tablet 12.5 mg PO Q2D 07/16/22 08/23/22 lisinopril 40 mg tablet 40 mg PO DAILY 07/16/22 08/23/22 metoprolol succinate 50 mg 50 mg PO DAILY 07/16/22 08/23/22 tablet,extended release 24 hr omeprazole 20 mg capsule,delayed 20 mg PO DAILY@0630 07/16/22 08/23/22 release Previous Rx's ?Medication ?Instructions ?Recorded cyclobenzaprine 5 mg tablet 5 mg PO Q8H PRN muscle pain #7 tabs 09/03/23 lidocaine 5 % topical patch 1 patch topical DAILY #15 ea 09/03/23 (Lidoderm) naproxen 500 mg tablet 500 mg PO Q8-12H PRN pain (scale 09/03/23 score 1-3) #20 tabs nitrofurantoin 100 mg PO BID 7 days #14 caps 09/03/23 monohydrate/macrocrystals 100 mg capsule Allergies Allergy/AdvReac Type Severity Reaction Status Date / Time morphine [MORPHINE] Allergy Intermediate PAPLITATIONS, Verified 12/14/23 23:05 increased heart rate Review of Systems Review of Systems Yes all other systems are reviewed and are negative Constitutional: Denies fatigue and Denies fever(s) Cardiovascular: Denies chest pain and Denies dyspnea Respiratory: Denies cough and Denies dyspnea Gastrointestinal: Reports abdominal pain, Denies diarrhea, Reports nausea and Denies vomiting Genitourinary: Reports dysuria Endocrine: Denies fatigue PMF Past Medical History Attestation statement: The following information was validated with the patient. 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 Physical Exam ED Vital Signs: Vital Signs - 24 hr 12/14/23 22:58 12/14/23 23:03 12/15/23 00:41 Temperature 97.7 F 97.7 F 98.5 F Pulse Rate 100 103 H 77 Respiratory Rate 20 24 H 18 Blood Pressure 157/88 H 157/88 H 110/69 Pulse Oximetry 99 98 94 Oxygen Delivery Method Room Air Room Air Room Air BMI result Body Mass Index 35.5 Const Other: Alert, appears older than stated age, extremely uncomfortable unable to sit still on the bed Orientation/consciousness: patient oriented x3 Resp Other: Nonlabored respiration Cardio Other: Normal peripheral perfusion GI Other: Abdomen is soft, nondistended, obese, guarding against exam before being palpated Skin Other: Warm dry no rash Neuro General: patient oriented x3, no focal motor deficits and CN's II-XI intact bilaterally Psych Other: Cooperative Medical Decision Making Medical Decision Making MDM Narrative: 48-year-old female with a history of kidney stones, morbid obesity presents with left flank pain prior to arrival. Patient states she was at [employer] when she developed severe left-sided discomfort. Pain over left flank radiates to left lower abdomen. Unable to describe the nature of her pain, but states it is severe and constant. Associated nausea. Denies dysuria, unknown if her urine is discolored, no fevers. Problem: Kidney stones History: Per patient I have considered the following differential diagnoses: Renal colic, pyelonephritis, UTI, torsion, diverticulitis Plan: Given the manner in which the patient is presenting, in the distribution of her pain, I am considering renal colic as most likely cause for her discomfort. We will obtain a CT scan, screening labs and urinalysis, giving Ativan Toradol and IV fluid. Thought about diverticulitis, however her pain is not focal to the left lower quadrant and she has no diarrhea. Thought about torsion, however the pain is within the abdomen it is not pelvic in nature, and she has known stones. I am deferring a transvaginal ultrasound at this time as I do not feel it is clinically indicated. Doubtful to be pyelonephritis, she had acute onset of symptoms, and has not had preceding dysuria or fever. I have independently reviewed the following tests: Labs: Leukocytosis, not anemic, no electrolyte abnormality, urine is infected and she is passing a large amount of blood we will add blood cultures and start ceftriaxone CT abdomen and pelvis: CT/CT abdomen pelvis wo IV con IMPRESSION: 1. Obstructing 8 mm distal left ureteral calculus with moderate hydronephrosis. 2. Incidental note made of an enlarged fatty liver, small right renal angiomyolipoma, colonic diverticulosis without diverticulitis, uterine fibroids and a 2.6 cm benign right ovarian cyst. Fleischner guidelines were followed. Electronically signed by: Feroz Gallardo MD 12/15/2023 12:51 AM EDT She will require admission and Urology consult Lab Data 12/14/23 23:28 12/14/23 23:28 Labs: Lab Results 12/14/23 12/14/23 Range/Units 23:28 23:32 WBC 17.1 H (4.8-10.8) X10*3/uL RBC 4.66 (4.20-5.50) X10*6/uL Hgb 13.1 (12.0-16.0) g/dl Hct 38.4 (37.0-47.0) % MCV 82.4 (80.0-98.0) fL MCH 28.1 (27.0-33.0) pg MCHC 34.1 (31.0-35.0) g/dl RDW 14.8 (11.0-16.0) % Plt Count 290 (160-400) X10*3/uL MPV 9.5 (9.4-12.3) fL Immature Gran % (Auto) 0.5 H (0.0-0.4) % Neut % (Auto) 84.3 H (45-73) % Lymph % (Auto) 10.0 L (20-40) % [place] % (Auto) 4.6 (2-11) % Eos % (Auto) 0.1 (0-4) % Baso % (Auto) 0.5 (0-2) % Lymph # (Auto) 1.7 (1.2-4.9) X10*3/uL [place] # (Auto) 0.8 (0.1-1.2) X10*3/uL Eos # (Auto) 0.0 (0.0-0.4) X10*3/uL Baso # (Auto) 0.1 (0.0-0.2) X10*3/uL Abs Immat Gran (auto) 0.08 H (0.00-0.03) X10*3/uL Absolute Neuts (auto) 14.4 H (2.0-8.3) x10*3/uL Absolute Nucleated RBC 0.000 (0.0-0.012) X10*3/uL Nucleated RBC % (auto) 0.0 (0.0-0.2) /100WBC Sodium 137 (135-145) mmol/L Potassium 3.8 (3.3-5.1) mmol/L Chloride 108 (96-108) mmol/L Carbon Dioxide 17 L (22-29) mmol/L Anion Gap 16 (12-20) BUN 15 (9-16) mg/dL Creatinine 0.89 (0.5-1.4) mg/dL Estim Creat Clear Calc 80.5 Estimated GFR > 60 Random Glucose 161 H (60-115) mg/dL Calcium 9.5 (8.4-10.2) mg/dL Magnesium 1.9 (1.6-2.6) mg/dL Total Bilirubin 0.4 (0.0-1.0) mg/dL AST 26 (5-31) U/L ALT 30 (0-31) U/L Alkaline Phosphatase 67 (39-117) U/L Total Protein 7.3 (6.5-8.0) g/dL Albumin 4.5 (3.5-5.0) g/dL Lipase 17 (8-78) U/L Urine Color Yellow Urine Appearance Cloudy Urine pH 5.5 (5.0-9.0) Ur Specific [place] 1.020 (1.005-1.025) Urine Protein 30 (1+) H (Neg-Trace) mg/dL Urine Glucose (UA) 250 H (Negative) mg/dL Urine Ketones 40 (Negative) mg/dL Urine Blood Moderate (2+) H (Negative) Urine Nitrite Positive H (Negative) Ur Leukocyte Esterase Small (1+) H (Negative) Urine RBC >20 H (0-2) /HPF Urine WBC >50 H (0-5) /HPF Ur Squamous Epith Cells 3-5 (0-2) /HPF Urine Bacteria 4+ (None Seen) Hyaline Casts 0-2 (0-2) /LPF Urine Test NEGATIVE (NEGATIVE) Medications Administered Discontinued Medications Generic Name Dose Route Start Last Admin Trade Name Freq PRN Reason Stop Dose Admin Sodium Chloride 500 mls @ 500 mls/hr 12/14/23 23:37 12/15/23 01:04 Ns IV 12/15/23 00:36 Infused .Q1H ONE Infusion Ketorolac Tromethamine 15 mg 12/14/23 23:37 12/14/23 23:51 Ketorolac Tromethamine 15 Mg/Ml Vial IVPUSH 12/14/23 23:38 15 mg ONCE ONE Administration Lorazepam 2 mg 12/14/23 23:40 12/14/23 23:51 Lorazepam 2 Mg/Ml Vial IVPUSH 12/14/23 23:41 2 mg ONCE ONE Administration Discharge Plan Discharge Clinical Impression: Left renal stone, Hydronephrosis with ureteral calculus, Urinary tract infection Prescriptions: No Action hydrochlorothiazide 12.5 mg Tablet 12.5 mg PO Q2D omeprazole 20 mg Capsule,Delayed Release(Dr/Ec) 20 mg PO DAILY@0630 lisinopril 40 mg Tablet 40 mg PO DAILY metoprolol succinate 50 mg Tablet Extended Release 24 Hr 50 mg PO DAILY diltiazem HCl 300 mg Capsule,Extended Release 24hr 300 mg PO DAILY docusate sodium [Colace] 100 mg Capsule 100 mg PO NEEDED PRN (Reason: Constipation) naproxen 500 mg tablet 500 mg PO Q8-12H PRN (Reason: pain (scale score 1-3)) Qty: 20 0RF nitrofurantoin monohyd/m-cryst 100 mg capsule 100 mg PO BID 7 Days Qty: 14 0RF Rx Instructions: must administer with a meal/food lidocaine [Lidoderm] 5 % adhesive patch,medicated 1 patch topical DAILY Qty: 15 0RF Rx Instructions: leave on most painful area for up to 12 hrs cyclobenzaprine 5 mg tablet 5 mg PO Q8H PRN (Reason: muscle pain) Qty: 7 0RF Print Language: Citizen [place]
[2023-12-15 01:09] LABS: Lactic Acid 1.5 mmol/L (0.5-2.0)
--- NOTE | 2023-12-15 01:15 | PM.IMHP ---
History of Present Illness Date of Service: 12/15/23 Chief Complaint: Abdominal Pain This is a 48-year-old female with pertinent history of hypertension, gastroesophageal reflux disease who presents to the emergency department for evaluation of left flank pain. Patient states her symptoms started on the day of presentation when she was in [employer]ism. The flank pain is constant, nonradiating, progressive and without any relieving factors. Also has associated nausea but no nonbloody emesis. Patient had a right-sided kidney stone about a month ago. No fever, chills, chest pain, palpitations, shortness of breath, changes in urinary or bowel habits. In the emergency department, imaging with obstructing 8 mm distal left ureteral calculus with moderate hydronephrosis. Patient with elevated WBC, sinus tachycardia. UA with positive nitrite, leukocyte esterase, more than 50 WBC and 4+ bacteria Review of Systems Constitutional: Constitutional: Reports no additional constitutional complaints Cardiovascular: Cardiovascular: Reports no additional cardiovascular complaints Respiratory: Respiratory: Reports no additional respiratory complaints Gastrointestinal: Gastrointestinal: Reports abdominal pain and Reports nausea Genitourinary: Genitourinary: Reports no additional female genitourinary complaints [facility] Medical History HTN (hypertension) Pertinent family history: No family history of early CAD Surgical History Hx of cystoscopy Social History Household Members: Spouse Do you presently have visiting nurse or other home services: No Alcohol intake: never Patient Tobacco Use Status: Former Tobacco user Tobacco use type: Cigarette Years Smoked: 11 Smoked in Last 30 Days: No Second Hand Smoke Exposure: No Use of substances other than those prescribed or required for medical reasons: No Advance Directives: No Do you have a plan to hurt others: No Plan Patient : No service: No Current occupational status: unemployed 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 Meds Allergies Allergy/AdvReac Type Severity Reaction Status Date / Time morphine [MORPHINE] Allergy Intermediate PAPLITATIONS, Verified 12/14/23 23:05 increased heart rate Home Medications ?Medication ?Instructions ?Recorded ?Confirmed ?Last Taken ?Type diltiazem HCl 300 mg 300 mg PO DAILY 05/08/23/22 07/15/22 History capsule,extended release 24 hr docusate sodium 100 mg capsule 100 mg PO NEEDED PRN 07/16/22 08/23/22 2 Weeks Ago History (Colace) Constipation ~07/02/22 hydrochlorothiazide 12.5 mg tablet 12.5 mg PO Q2D 07/16/22 08/23/22 Unknown History lisinopril 40 mg tablet 40 mg PO DAILY 07/16/22 08/23/22 07/15/22 History metoprolol succinate 50 mg 50 mg PO DAILY 07/16/22 08/23/22 07/15/22 History tablet,extended release 24 hr omeprazole 20 mg capsule,delayed 20 mg PO DAILY@0630 07/16/22 08/23/22 07/15/22 History release Physical Exam Vital Signs and Narrative: Vital Signs: Last Vital Signs Temp 98.5 F 12/15/23 00:41 Pulse 77 12/15/23 00:41 Resp 18 12/15/23 00:41 BP 110/69 12/15/23 00:41 Pulse Ox 94 12/15/23 00:41 O2 Del Method Room Air 12/15/23 00:41 BMI result Body Mass Index 35.5 Middle-aged female lying in bed in no distress Neck supple, no JVD Regular rate and rhythm, S1-S2 heard Regular breath sounds bilaterally, no wheezing or crackles appreciated Abdomen with left flank CVA tenderness Patient is awake, alert and oriented to self, place, time and person ; no focal motor deficit Psych: Normal mood No pedal edema Results Labs 12/14/23 23:28 12/14/23 23:28 Labs: Laboratory Results - last 24 hr 12/14/23 12/14/23 12/15/23 23:28 23:32 00:53 MCV 82.4 MCH 28.1 MCHC 34.1 RDW 14.8 Plt Count 290 MPV 9.5 Immature Gran % (Auto) 0.5 H Neut % (Auto) 84.3 H Lymph % (Auto) 10.0 L [place] % (Auto) 4.6 Eos % (Auto) 0.1 Baso % (Auto) 0.5 Lymph # (Auto) 1.7 [place] # (Auto) 0.8 Eos # (Auto) 0.0 Baso # (Auto) 0.1 Abs Immat Gran (auto) 0.08 H Absolute Neuts (auto) 14.4 H Absolute Nucleated RBC 0.000 Nucleated RBC % (auto) 0.0 Anion Gap 16 Estim Creat Clear Calc 80.5 Estimated GFR > 60 Random Glucose 161 H Lactic Acid 1.5 Calcium 9.5 Magnesium 1.9 Total Bilirubin 0.4 AST 26 ALT 30 Alkaline Phosphatase 67 Total Protein 7.3 Albumin 4.5 Lipase 17 Urine Color Yellow Urine Appearance Cloudy Urine pH 5.5 Ur Specific [place] 1.020 Urine Protein 30 (1+) H Urine Glucose (UA) 250 H Urine Ketones 40 Urine Blood Moderate (2+) H Urine Nitrite Positive H Ur Leukocyte Esterase Small (1+) H Urine RBC >20 H Urine WBC >50 H Ur Squamous Epith Cells 3-5 Urine Bacteria 4+ Hyaline Casts 0-2 Urine Test NEGATIVE Imaging Radiologist's Impressions: Impressions Abdomen/Pelvis CT 12/15/23 00:00 IMPRESSION: 1. Obstructing 8 mm distal left ureteral calculus with moderate hydronephrosis. 2. Incidental note made of an enlarged fatty liver, small right renal angiomyolipoma, colonic diverticulosis without diverticulitis, uterine fibroids and a 2.6 cm benign right ovarian cyst. Fleischner guidelines were followed. Electronically signed by: Feroz Gallardo MD 12/15/2023 12:51 AM EDT RP Assessment and Plan (1) Left renal stone: Status: Acute (2) Pyelonephritis: Status: Acute Plan This is a 48-year-old female with pertinent history of hypertension, gastroesophageal reflux disease who presents to the emergency department for evaluation of left flank pain. #. Sepsis due to pyelonephritis with left distal ureteral calculus: Will admit patient with empiric IV ceftriaxone. Resuscitated with IV crystalloids. Consulted Urology, appreciate assistance. IV opioids p.r.n. for analgesia. Lactic acid and blood culture obtained #. Hypertension: Hold antihypertensives Med rec pending DVT prophylaxis: Mechanical Full code Admit as inpatient and will require two night minimum hospital stay for IV opiates p.r.n., IV antibiotics (as above), which is not possible in a lesser acute setting. Specialist consult pending Quality Stroke Does the patient have a stroke diagnosis?: No VTE Prior VTE?: No VTE Risk Level:: Medical - moderate - high VTE Device Contraindication: N/A - Device Ordered VTE Drug Contraindication: Treatment Not Indicated
[2023-12-15] MEDS: cefTRIAXone sodium 2 GM VIAL IVPUSH (01:18)
[2023-12-15] MEDS: Tamsulosin HCL 0.4 MG CAPSULE PO (02:47)
[2023-12-15] MEDS: HYDROmorphone HCl 0.5 MG/0.5 ML SYRINGE IVPUSH ×3 (02:47→09:22)
[2023-12-15] MEDS: ondansetron HCL 4 MG/2 ML VIAL IVPUSH (05:16)
--- NOTE | 2023-12-15 05:34 | PC.NURSE ---
Pt c/o of 09/27 pain to LLQ, next dose of PRN Dilaudid due at 06:47, last given at 02;47. This RN notified MD Laboy of the situation and okay to administer PRN Dilaudid earlier, see MAR. Will continue to monitor, pending effectiveness.
[2023-12-15 07:17] LABS: Basophils Percent Auto 0.3 % (0-2); Hemoglobin 12.4 g/dl (12.0-16.0); Imm Gran Abs Auto 0.07 X10*3/uL (0.00-0.03); Imm Gran Pct Auto 0.5 % (0.0-0.4); Lymphocytes Absolute Auto 0.3 X10*3/uL (1.2-4.9); Lymphocytes Percent Auto 2.2 % (20-40); Mean Corpuscular HGB Conc 33.5 g/dl (31.0-35.0); Mean Corpuscular Hemoglobin 28.1 pg (27.0-33.0); Mean Corpuscular Volume 83.9 fL (80.0-98.0); Mean Platelet Volume 9.9 fL (9.4-12.3); Monocytes Absolute Auto 0.2 X10*3/uL (0.1-1.2); Monocytes Percent Auto 1.4 % (2-11); Neutrophils Absolute Auto 13.9 x10*3/uL (2.0-8.3); Neutrophils Percent Auto 95.6 % (45-73); Platelet Count 214 X10*3/uL (160-400); Red Blood Count 4.41 X10*6/uL (4.20-5.50); Red Cell Distribution Width 14.8 % (11.0-16.0); SCAN SMEAR FLAG 1; White Blood Count 14.5 X10*3/uL (4.8-10.8)
[2023-12-15 07:20] LABS: MANUAL DIFF FLAG NO
[2023-12-15 07:32] LABS: Anion Gap 15 (12-20); Blood Urea Nitrogen 15 mg/dL (9-16); Carbon Dioxide 17 mmol/L (22-29); Chloride 108 mmol/L (96-108); Creatinine Clr Calc Pharmacy 67.6; Estimated Glomerular Filt Rate 54; Glucose Random 169 mg/dL (60-115); Potassium 3.7 mmol/L (3.3-5.1); Sodium 136 mmol/L (135-145)
--- NOTE | 2023-12-15 09:20 | HO.PM.IMPN ---
Subjective Subjective Date of Service: 12/15/23 Review of Systems Follow up pyelonephritis with 8 mm obstructing stone Still with abdominal pain occasional nausea Physical Exam Vital Signs: Vital Signs: Last Vital Signs Temp 99.0 F 12/15/23 08:00 Pulse 110 H 12/15/23 08:00 Resp 18 12/15/23 08:00 BP 109/69 12/15/23 08:00 Pulse Ox 95 12/15/23 08:00 O2 Del Method Room Air 12/15/23 08:00 BMI result Body Mass Index 37.4 Appearing in no acute distress lung sounds are clear to auscultation heart regular rate rhythm, clear S1, S2 positive bowel sounds, abdomen is soft, nontender neuro patient is alert x3, no focal deficits Noted CVA tenderness Objective Data Active Medications Acetaminophen (Acetaminophen 325 Mg Tablet) 650 mg PO Q6H PRN PRN Reason: Pain, Mild (Pain Scale 1-3), fever or headache Calcium Carbonate (Calcium Carbonate 750 Mg Tab.Chew) 750 mg PO Q4H PRN PRN Reason: Heartburn Ceftriaxone Sodium (Ceftriaxone Sodium 1 Gm Vial) 1 gm IVPUSH Q24H [facility] Hydromorphone HCl (Hydromorphone Hcl 0.5 Mg/0.5 Ml Syringe) 0.5 mg IVPUSH Q4H PRN; Protocol PRN Reason: Pain, Severe (Pain Scale 7-10) Last Admin: 12/15/23 05:19 Dose: 0.5 mg Documented By: MAKI Comments: okay by MD Laboy to administer medication earlier Magnesium Hydroxide (Milk Of Magnesia 30 Ml Oral.Susp) 30 ml PO DAILY PRN PRN Reason: Constipation Melatonin (Melatonin 3 Mg Tablet) 6 mg PO BEDTIME PRN PRN Reason: Insomnia Ondansetron HCl (Ondansetron Hcl 4 Mg/2 Ml Vial) 4 mg IVPUSH Q8H PRN PRN Reason: Nausea and Vomiting Last Admin: 12/15/23 05:16 Dose: 4 mg Documented By: MAKI Sodium Chloride (0.9 % Sodium Chloride Flush 3 Ml Syringe) 3 ml IVFLUSH QSHIFT [facility] Labs 12/15/23 06:45 12/15/23 06:45 Labs: Laboratory Results - last 24 hr 12/14/23 12/14/23 12/15/23 23:28 23:32 00:53 MCV 82.4 MCH 28.1 MCHC 34.1 RDW 14.8 Plt Count 290 MPV 9.5 Immature Gran % (Auto) 0.5 H Neut % (Auto) 84.3 H Lymph % (Auto) 10.0 L [place] % (Auto) 4.6 Eos % (Auto) 0.1 Baso % (Auto) 0.5 Lymph # (Auto) 1.7 [place] # (Auto) 0.8 Eos # (Auto) 0.0 Baso # (Auto) 0.1 Abs Immat Gran (auto) 0.08 H Absolute Neuts (auto) 14.4 H Absolute Nucleated RBC 0.000 Nucleated RBC % (auto) 0.0 Anion Gap 16 Estim Creat Clear Calc 80.5 Estimated GFR > 60 Random Glucose 161 H Lactic Acid 1.5 Calcium 9.5 Magnesium 1.9 Total Bilirubin 0.4 AST 26 ALT 30 Alkaline Phosphatase 67 Total Protein 7.3 Albumin 4.5 Lipase 17 Urine Color Yellow Urine Appearance Cloudy Urine pH 5.5 Ur Specific [place] 1.020 Urine Protein 30 (1+) H Urine Glucose (UA) 250 H Urine Ketones 40 Urine Blood Moderate (2+) H Urine Nitrite Positive H Ur Leukocyte Esterase Small (1+) H Urine RBC >20 H Urine WBC >50 H Ur Squamous Epith Cells 3-5 Urine Bacteria 4+ Hyaline Casts 0-2 Urine Test NEGATIVE 12/15/23 06:45 MCV 83.9 MCH 28.1 MCHC 33.5 RDW 14.8 Plt Count 214 D MPV 9.9 Immature Gran % (Auto) 0.5 H Neut % (Auto) 95.6 H Lymph % (Auto) 2.2 L [place] % (Auto) 1.4 L Eos % (Auto) 0.0 Baso % (Auto) 0.3 Lymph # (Auto) 0.3 L [place] # (Auto) 0.2 Eos # (Auto) 0.0 Baso # (Auto) 0.0 Abs Immat Gran (auto) 0.07 H Absolute Neuts (auto) 13.9 H Absolute Nucleated RBC 0.000 Nucleated RBC % (auto) 0.0 Anion Gap 15 Estim Creat Clear Calc 67.6 Estimated GFR 54 Random Glucose 169 H Lactic Acid Calcium 9.0 Magnesium Total Bilirubin AST ALT Alkaline Phosphatase Total Protein Albumin Lipase Urine Color Urine Appearance Urine pH Ur Specific [place] Urine Protein Urine Glucose (UA) Urine Ketones Urine Blood Urine Nitrite Ur Leukocyte Esterase Urine RBC Urine WBC Ur Squamous Epith Cells Urine Bacteria Hyaline Casts Urine Test Assessment and Plan (1) Pyelonephritis: Status: Acute Plan 48-year-old female with pertinent history of hypertension, gastroesophageal reflux disease who presents to the emergency department for evaluation of left flank pain. Sepsis due to pyelonephritis with left distal ureteral calculus Continue empiric IV ceftriaxone. Resuscitated with IV crystalloids. IV opioids p.r.n. for analgesia. Discussed with Urology, plan for OR tomorrow, keep NPO after midnight Hypertension Hold antihypertensives for now DVT prophylaxis: Mechanical compression boots Attending Dr. Diaz Full code Admit as inpatient and will require two night minimum hospital stay for IV opiates p.r.n., IV antibiotics (as above), which is not possible in a lesser acute setting. Specialist consult pending Quality Stroke Does the patient have a stroke diagnosis?: No VTE Prior VTE?: No VTE Risk Level:: Medical - moderate - high VTE Device Contraindication: N/A - Device Ordered VTE Drug Contraindication: Treatment Not Indicated
--- NOTE | 2023-12-15 09:37 | MHC.CM.PN ---
IMM DELIVERED. PATIENT LIVES AT HOME W/ AND CHILDREN. FUNCTIONALLY INDEPENDENT. DENIES USE OF DME OR SERVICES. PCP DR GTZ NO HCP. CM PROVIDED EDUCATION AND OFFERED ASSISTANCE. PATIENT DECLINED. DP: GOAL IS HOME SELF CARE. TO TRANSPORT. CM WILL CONTINUE TO FOLLOW.
--- NOTE | 2023-12-15 12:06 | PHA.MEDREC ---
Addendum entered by Moy Vick 12/15/23 12:12: reviewed Original Note: Pharmacy Consult ? Medication Reconciliation Pharmacy has completed the medication reconciliation. Spoke with patient to confirm medications. She takes a half tab of the metoprolol 100 mg once daily. She has a prescription for Wegovy but reports that she did not start it yet. She last took her medications yesterday. She is currently not taking any antibiotics.
[2023-12-15] MEDS: oxyCODONE HCl Immed Release 5 MG TABLET PO ×2 (12:42→18:58)
[2023-12-15] MEDS: Acetaminophen 325 MG TABLET 650 MG PO ×2 (12:43→20:08)
[2023-12-15] MEDS: Piperacillin Sodium/Tazobactam 4.5 GM in 0.9 % Sodium Chloride 100 ML IV ×2 (14:01→18:58)
[2023-12-15] MEDS: 0.9 % Sodium Chloride Flush 3 ML SYRINGE IVFLUSH (19:44)
[2023-12-16] VITALS (13 sets, daily range): BP systolic 102–139; BP diastolic 56–84; PULSE 96–129; RESP 16–18; TEMP 36.2–37.7; O2SAT 91–99
[2023-12-16] MEDS: oxyCODONE HCl Immed Release 5 MG TABLET PO ×3 (01:33→19:46)
[2023-12-16] MEDS: Piperacillin Sodium/Tazobactam 4.5 GM in 0.9 % Sodium Chloride 100 ML IV ×4 (01:33→19:32)
[2023-12-16] MEDS: Acetaminophen 325 MG TABLET 650 MG PO ×2 (07:13→20:45)
[2023-12-16] MEDS: dilTIAZem HCL CD 300 MG CAP.ER.24H PO (08:11)
[2023-12-16] MEDS: Multivitamin TABLET 1 TAB PO (08:11)
[2023-12-16] MEDS: PARoxetine HCL 10 MG TABLET PO (08:11)
[2023-12-16] MEDS: 0.9 % Sodium Chloride Flush 3 ML SYRINGE IVFLUSH ×2 (08:13→17:07)
--- NOTE | 2023-12-16 09:36 | P.PNIM_ITS ---
Subjective Subjective Date of Service: 12/16/23 Review of Systems Follow up pyelonephritis with 8 mm obstructing stone Still with abdominal pain occasional nausea Physical Exam 2 Vital Signs: Vital Signs: Last Vital Signs Temp 97.3 F 12/16/23 07:48 Pulse 96 12/16/23 07:48 Resp 18 12/16/23 07:48 BP 108/58 L 12/16/23 07:48 Pulse Ox 96 12/16/23 07:48 O2 Del Method Room Air 12/16/23 07:48 BMI result Body Mass Index 37.4 Appearing in no acute distress lung sounds are clear to auscultation heart regular rate rhythm, clear S1, S2 positive bowel sounds, abdomen is soft, nontender neuro patient is alert x3, no focal deficits Objective Data Active Medications Acetaminophen (Acetaminophen 325 Mg Tablet) 650 mg PO Q6H PRN PRN Reason: Pain, Mild (Pain Scale 1-3), fever or headache Last Admin: 12/16/23 07:13 Dose: 650 mg Documented By: VAMSI Calcium Carbonate (Calcium Carbonate 750 Mg Tab.Chew) 750 mg PO Q4H PRN PRN Reason: Heartburn Diltiazem HCl (Diltiazem Hcl Cd 300 Mg Cap.Er.24h) 300 mg PO DAILY YONATHAN; Protocol Last Admin: 12/16/23 08:11 Dose: 300 mg Documented By: VAMSI Hydromorphone HCl (Hydromorphone Hcl 0.5 Mg/0.5 Ml Syringe) 0.5 mg IVPUSH Q4H PRN; Protocol PRN Reason: Pain, Severe (Pain Scale 7-10) Last Admin: 12/15/23 09:22 Dose: 0.5 mg Documented By: ROMAN Piperacillin Sod/Tazobactam (Sod 4.5 gm/ Sodium Chloride) 100 mls @ 200 mls/hr IV Q6H YONATHAN Last Infusion: 12/16/23 08:42 Dose: Infused Documented By: VAMSI Levofloxacin (Levaquin) 500 mg in 100 mls @ 100 mls/hr IV PREOP YONATHAN Stop: 12/16/23 23:00 Acetaminophen (Ofirmev) 1,000 mg in 100 mls @ 400 mls/hr IV PREOP YONATHAN Stop: 12/16/23 23:00 Lisinopril (Lisinopril 40 Mg Tablet) 40 mg PO DAILY COUNTS INCLUDE 234 BEDS AT THE [facility]; Protocol Last Admin: 12/16/23 08:18 Dose: Not Given Documented By: VAMSI Non-Admin Reason: Physician Held Med Magnesium Hydroxide (Milk Of Magnesia 30 Ml Oral.Susp) 30 ml PO DAILY PRN PRN Reason: Constipation Melatonin (Melatonin 3 Mg Tablet) 6 mg PO BEDTIME PRN PRN Reason: Insomnia Metoprolol Succinate (Metoprolol Succinate Er 50 Mg Tab.Er.24h) 50 mg PO DAILY COUNTS INCLUDE 234 BEDS AT THE [facility]; Protocol Last Admin: 12/16/23 08:18 Dose: Not Given Documented By: VAMSI Non-Admin Reason: Physician Held Med Multivitamins/Vitamin C (Multivitamin Tablet) 1 tab PO DAILY COUNTS INCLUDE 234 BEDS AT THE [facility] Last Admin: 12/16/23 08:11 Dose: 1 tab Documented By: VAMSI Omeprazole (Omeprazole 20 Mg Capsule.Dr) 20 mg PO DAILY@0630 COUNTS INCLUDE 234 BEDS AT THE [facility] Last Admin: 12/16/23 05:49 Dose: Not Given Documented By: ROSALIE Non-Admin Reason: NPO Ondansetron HCl (Ondansetron Hcl 4 Mg/2 Ml Vial) 4 mg IVPUSH Q8H PRN PRN Reason: Nausea and Vomiting Last Admin: 12/15/23 05:16 Dose: 4 mg Documented By: MAKI Oxycodone HCl (Oxycodone Hcl Immed Release 5 Mg Tablet) 5 mg PO Q6H PRN PRN Reason: Pain, Moderate(Pain Scale 4-6) Last Admin: 12/16/23 01:33 Dose: 5 mg Documented By: ROSALIE Paroxetine HCl (Paroxetine Hcl 10 Mg Tablet) 10 mg PO DAILY COUNTS INCLUDE 234 BEDS AT THE [facility] Last Admin: 12/16/23 08:11 Dose: 10 mg Documented By: VAMSI Sodium Chloride (0.9 % Sodium Chloride Flush 3 Ml Syringe) 3 ml IVFLUSH QSHIFT COUNTS INCLUDE 234 BEDS AT THE [facility] Last Admin: 12/16/23 08:13 Dose: 3 ml Documented By: VAMSI Labs 12/15/23 06:45 12/15/23 06:45 Microbiology Microbiology Results: Microbiology 12/15/23 00:49 Blood Culture - Preliminary Blood - Venous Gram negative dayday 12/15/23 00:51 Blood Culture - Preliminary Blood - Venous No growth after 24 hours. Assessment and Plan (1) Pyelonephritis: Status: Acute Plan 48-year-old female with pertinent history of hypertension, gastroesophageal reflux disease who presents to the emergency department for evaluation of left flank pain. Sepsis due to pyelonephritis with left distal ureteral calculus and GNR bacteremia Continue IV Zosyn Resuscitated with IV crystalloids. IV opioids p.r.n. for analgesia. Urology following, going to OR today Hypertension Hold antihypertensives for now to avoid hypotension pre-op GERD continue PPI Mentalhealth continue home medications DVT prophylaxis: Mechanical compression boots Attending Dr. Finnegan Full code Quality Stroke Does the patient have a stroke diagnosis?: No VTE Prior VTE?: No VTE Risk Level:: Medical - moderate - high VTE Device Contraindication: N/A - Device Ordered VTE Drug Contraindication: Treatment Not Indicated
--- NOTE | 2023-12-16 11:10 | MHC.CM.PN ---
EMR REVIEWED AND PER MD ROUNDS, PT WILL GO TO OR TODAY FOR A SURGICAL INTERVENTION DUE TO RENAL STONE. CM WILL CONTINUE TO FOLLOW FOR ANY CHANGE TO DC PLAN/NEEDS.
--- NOTE | 2023-12-16 12:52 | P.PNUR_ITS ---
Subjective Subjective Date of Service: 12/16/23 Interval history: No stone passage Plan for procedure today Physical Exam 2 Vital Signs: Vital Signs: Last Vital Signs Temp 97.3 F 12/16/23 07:48 Pulse 96 12/16/23 07:48 Resp 18 12/16/23 07:48 BP 108/58 L 12/16/23 07:48 Pulse Ox 96 12/16/23 07:48 O2 Del Method Room Air 12/16/23 07:48 BMI result Body Mass Index 37.4 Const: General: cooperative, healthy appearing, comfortable and no acute distress Orientation/consciousness: patient oriented x3 HEENT: Face and sinus: Yes normal facial exam Mouth: moist mucous membranes Neck: Neck: Yes normal visual inspection, Yes full ROM and Yes trachea midline Chest: Chest palpation & inspection: normal inspection of the chest Resp: Effort & Inspection: normal respiratory effort, able to speak in complete sentences and no respiratory distress GI: Inspection: Yes normal to inspection Back/Spine/Pelvis: Cervical Spine: normal cervical lordosis Thoracic/Lumbar Spine: thoracic and lumbar spine normal to inspection Skin: General skin exam: no rashes or lesions noted Neuro: General: patient oriented x3, tone normal and moves all extremities Extrem: General: Yes normal to inspection and Yes capillary refill normal Urology Results Labs 12/15/23 06:45 12/15/23 06:45 Progress Note: A&P Assessment and plan (1) Hydronephrosis with ureteral calculus: Status: Acute Plan Procedure today Time Spent With Patient Time: Total time managing care of this patient today ____ minutes. Progress Note: Quality Stroke Does the patient have a stroke diagnosis?: No
--- NOTE | 2023-12-16 14:25 | P.CONAN_ITS ---
HPI - Anesthesia Eval Consult details Narrative: for cysto, retro, ? laser, ? stent. PMF Active Problems Active Problems: All Active Problems Pyelonephritis (Acute) Urinary tract infection (Acute) Left renal stone (Acute) Right ureteral stone (Acute) Hydronephrosis with ureteral calculus (Acute) Patellofemoral syndrome of right knee (Acute) Past Medical History Medical History HTN (hypertension) Patient : No Family History Family history of problems with anesthesia: No Surgical History Surgical History Hx of cystoscopy History of Problems with Anesthesia: No Social History Social History Household Members: Spouse and Children Housing: House Are you a primary care rep to a significant other at home: No Do you presently have visiting nurse or other home services: No Alcohol intake: never Patient Tobacco Use Status: Former Tobacco user Tobacco use type: Cigarette Years Smoked: 11 Second Hand Smoke Exposure: No service: No Current occupational status: unemployed 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 Meds Allergies Allergy/AdvReac Type Severity Reaction Status Date / Time morphine [MORPHINE] Allergy Intermediate PAPLITATIONS, Verified 12/16/23 14:42 increased heart rate Active Medications: Current Medications Acetaminophen (Acetaminophen 325 Mg Tablet) 650 mg PO Q6H PRN PRN Reason: Pain, Mild (Pain Scale 1-3), fever or headache Last Admin: 12/16/23 07:13 Dose: 650 mg Calcium Carbonate (Calcium Carbonate 750 Mg Tab.Chew) 750 mg PO Q4H PRN PRN Reason: Heartburn Diltiazem HCl (Diltiazem Hcl Cd 300 Mg Cap.Er.24h) 300 mg PO DAILY YONATHAN; Protocol Last Admin: 12/16/23 08:11 Dose: 300 mg Hydromorphone HCl (Hydromorphone Hcl 0.5 Mg/0.5 Ml Syringe) 0.5 mg IVPUSH Q4H PRN; Protocol PRN Reason: Pain, Severe (Pain Scale 7-10) Last Admin: 12/15/23 09:22 Dose: 0.5 mg Piperacillin Sod/Tazobactam (Sod 4.5 gm/ Sodium Chloride) 100 mls @ 200 mls/hr IV Q6H [facility] Last Infusion: 12/16/23 14:08 Dose: Infused Levofloxacin (Levaquin) 500 mg in 100 mls @ 100 mls/hr IV PREOP YONATHNA Stop: 12/16/23 23:00 Acetaminophen (Ofirmev) 1,000 mg in 100 mls @ 400 mls/hr IV PREOP YONATHAN Stop: 12/16/23 23:00 Lisinopril (Lisinopril 40 Mg Tablet) 40 mg PO DAILY [facility]; Protocol Last Admin: 12/16/23 08:18 Dose: Not Given Magnesium Hydroxide (Milk Of Magnesia 30 Ml Oral.Susp) 30 ml PO DAILY PRN PRN Reason: Constipation Melatonin (Melatonin 3 Mg Tablet) 6 mg PO BEDTIME PRN PRN Reason: Insomnia Metoprolol Succinate (Metoprolol Succinate Er 50 Mg Tab.Er.24h) 50 mg PO DAILY [facility]; Protocol Last Admin: 12/16/23 08:18 Dose: Not Given Multivitamins/Vitamin C (Multivitamin Tablet) 1 tab PO DAILY [facility] Last Admin: 12/16/23 08:11 Dose: 1 tab Omeprazole (Omeprazole 20 Mg Capsule.Dr) 20 mg PO DAILY@0630 [facility] Last Admin: 12/16/23 05:49 Dose: Not Given Ondansetron HCl (Ondansetron Hcl 4 Mg/2 Ml Vial) 4 mg IVPUSH Q8H PRN PRN Reason: Nausea and Vomiting Last Admin: 12/15/23 05:16 Dose: 4 mg Oxycodone HCl (Oxycodone Hcl Immed Release 5 Mg Tablet) 5 mg PO Q6H PRN PRN Reason: Pain, Moderate(Pain Scale 4-6) Last Admin: 12/16/23 13:04 Dose: 5 mg Paroxetine HCl (Paroxetine Hcl 10 Mg Tablet) 10 mg PO DAILY [facility] Last Admin: 12/16/23 08:11 Dose: 10 mg Sodium Chloride (0.9 % Sodium Chloride Flush 3 Ml Syringe) 3 ml IVFLUSH QSHIFT [facility] Last Admin: 12/16/23 08:13 Dose: 3 ml Home Medications ?Medication ?Instructions ?Recorded ?Confirmed ?Last Taken ?Type diltiazem HCl 300 mg 300 mg PO DAILY 07/16/22 12/15/23 12/14/23 History capsule,extended release 24 hr lisinopril 40 mg tablet 40 mg PO DAILY 07/16/22 12/15/23 12/14/23 History omeprazole 20 mg capsule,delayed 20 mg PO DAILY@0630 07/16/22 12/15/23 12/14/23 History release cyclobenzaprine 10 mg tablet 10 mg PO TID PRN Muscle Pain 12/15/23 12/15/23 Unknown History fexofenadine 180 mg tablet 180 mg PO DAILY 12/15/23 12/15/23 12/14/23 History metoprolol succinate 100 mg 50 mg PO DAILY 12/15/23 12/15/23 12/14/23 History tablet,extended release 24 hr paroxetine HCl 10 mg tablet 10 mg PO DAILY 12/15/23 12/15/23 12/14/23 History vitamin B complex 1 cap PO DAILY 12/15/23 12/15/23 12/14/23 History Exam Height,Weight and Vital Signs: Height 5 ft 2 in Weight 92.7 kg Last Vital Signs Temp 97.3 F 12/16/23 07:48 Pulse 96 12/16/23 07:48 Resp 18 12/16/23 07:48 BP 108/58 L 12/16/23 07:48 Pulse Ox 96 12/16/23 07:48 O2 Del Method Room Air 12/16/23 07:48 Pertinent Lab Results Pertinent Lab Results: Laboratory Tests 12/14/23 12/14/23 12/15/23 23:28 23:32 00:53 WBC 17.1 H RBC 4.66 Hgb 13.1 Hct 38.4 MCV 82.4 MCH 28.1 MCHC 34.1 RDW 14.8 Plt Count 290 MPV 9.5 Immature Gran % (Auto) 0.5 H Neut % (Auto) 84.3 H Lymph % (Auto) 10.0 L Alexander % (Auto) 4.6 Eos % (Auto) 0.1 Baso % (Auto) 0.5 Lymph # (Auto) 1.7 Alexander # (Auto) 0.8 Eos # (Auto) 0.0 Baso # (Auto) 0.1 Abs Immat Gran (auto) 0.08 H Absolute Neuts (auto) 14.4 H Absolute Nucleated RBC 0.000 Nucleated RBC % (auto) 0.0 Sodium 137 Potassium 3.8 Chloride 108 Carbon Dioxide 17 L Anion Gap 16 BUN 15 Creatinine 0.89 Estim Creat Clear Calc 80.5 Estimated GFR > 60 Random Glucose 161 H Lactic Acid 1.5 Calcium 9.5 Magnesium 1.9 Total Bilirubin 0.4 AST 26 ALT 30 Alkaline Phosphatase 67 Total Protein 7.3 Albumin 4.5 Lipase 17 Urine Color Yellow Urine Appearance Cloudy Urine pH 5.5 Ur Specific [place] 1.020 Urine Protein 30 (1+) H Urine Glucose (UA) 250 H Urine Ketones 40 Urine Blood Moderate (2+) H Urine Nitrite Positive H Ur Leukocyte Esterase Small (1+) H Urine RBC >20 H Urine WBC >50 H Ur Squamous Epith Cells 3-5 Urine Bacteria 4+ Hyaline Casts 0-2 Urine Test NEGATIVE 12/15/23 06:45 WBC 14.5 H RBC 4.41 Hgb 12.4 Hct 37.0 MCV 83.9 MCH 28.1 MCHC 33.5 RDW 14.8 Plt Count 214 D MPV 9.9 Immature Gran % (Auto) 0.5 H Neut % (Auto) 95.6 H Lymph % (Auto) 2.2 L Alexander % (Auto) 1.4 L Eos % (Auto) 0.0 Baso % (Auto) 0.3 Lymph # (Auto) 0.3 L Alexander # (Auto) 0.2 Eos # (Auto) 0.0 Baso # (Auto) 0.0 Abs Immat Gran (auto) 0.07 H Absolute Neuts (auto) 13.9 H Absolute Nucleated RBC 0.000 Nucleated RBC % (auto) 0.0 Sodium 136 Potassium 3.7 Chloride 108 Carbon Dioxide 17 L Anion Gap 15 BUN 15 Creatinine 1.09 Estim Creat Clear Calc 67.6 Estimated GFR 54 Random Glucose 169 H Lactic Acid Calcium 9.0 Magnesium Total Bilirubin AST ALT Alkaline Phosphatase Total Protein Albumin Lipase Urine Color Urine Appearance Urine pH Ur Specific [place] Urine Protein Urine Glucose (UA) Urine Ketones Urine Blood Urine Nitrite Ur Leukocyte Esterase Urine RBC Urine WBC Ur Squamous Epith Cells Urine Bacteria Hyaline Casts Urine Test Airway Mallampati Class: II TM Dist: <=3cm Neck ROM: Full Loose/Missing/Broken Teeth: No Heart: ok Lungs: ok Assessment and Plan Assessment Anesthesia Assessment: Anesthesia Plan Discussed and Chart Reviewed Final Anesthetic Review Family History of Problems with Anesthesia: No History of Problems with Anesthesia: No NPO: Yes ASA Class: II Final Preanesthetic Review: No Changes in Pt Med Stat, Meds/Allgs Chart Reviewed, Consent Obtained/Reviewed and Anes Risks/Benef Reviewed Patient Risk: Intermediate Procedure Risk: Low Anesthetic Plan Anesthetic Plan: GA and Agree w/ Assess. and Plan Disposition: Standard PACU
--- NOTE | 2023-12-16 14:47 | P.CNUR_ITS ---
History of Present Illness Consult details Consult date: 12/15/23 Narrative: CC: Left distal ureteric stone 48-year-old female Presents with left-sided flank pain. Constant. Progressive without any relieving factors. Prior kidney stones CT - There is left-sided moderate hydronephrosis along with dilatation of the left ureter down to the level of a 8 x 5 x 6 mm obstructing distal ureteral calculus just above the ureterovesical junction Recommendation for intervention Review of Systems 2 Constitutional: Constitutional: Reports as per HPI and Reports no additional constitutional complaints Cardiovascular: Cardiovascular: Reports as per HPI and Reports no additional cardiovascular complaints Respiratory: Respiratory: Reports as per HPI and Reports no additional respiratory complaints Gastrointestinal: Gastrointestinal: Reports as per HPI and Reports no additional gastrointestinal complaints Genitourinary: Genitourinary: Reports as per HPI Musculoskeletal: Musculoskeletal: Reports no additional musculoskeletal complaints and Reports as per HPI Neurologic: Reports system reviewed and no additional complaints, except as documented and Reports as per HPI PMFSH Past Medical History Medical History (Updated 12/16/23 @ 14:41 by Natalya Palacios RN) SVT (supraventricular tachycardia) HTN (hypertension) Surgical History Surgical History (Updated 12/16/23 @ 14:41 by Natalya Palacios RN) Hx of cystoscopy Social History Social History Household Members: Spouse and Children Housing: House Do you presently have visiting nurse or other home services: No Alcohol intake: never Patient Tobacco Use Status: Former Tobacco user Tobacco use type: Cigarette Years Smoked: 11 Second Hand Smoke Exposure: No service: No Current occupational status: unemployed 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 Meds Allergies Allergy/AdvReac Type Severity Reaction Status Date / Time morphine [MORPHINE] Allergy Intermediate PAPLITATIONS, Verified 12/16/23 14:42 increased heart rate Active Medications: Current Medications Acetaminophen (Acetaminophen 325 Mg Tablet) 650 mg PO Q6H PRN PRN Reason: Pain, Mild (Pain Scale 1-3), fever or headache Last Admin: 12/16/23 07:13 Dose: 650 mg Calcium Carbonate (Calcium Carbonate 750 Mg Tab.Chew) 750 mg PO Q4H PRN PRN Reason: Heartburn Diltiazem HCl (Diltiazem Hcl Cd 300 Mg Cap.Er.24h) 300 mg PO DAILY YONATHAN; Protocol Last Admin: 12/16/23 08:11 Dose: 300 mg Hydromorphone HCl (Hydromorphone Hcl 0.5 Mg/0.5 Ml Syringe) 0.5 mg IVPUSH Q4H PRN; Protocol PRN Reason: Pain, Severe (Pain Scale 7-10) Last Admin: 12/15/23 09:22 Dose: 0.5 mg Piperacillin Sod/Tazobactam (Sod 4.5 gm/ Sodium Chloride) 100 mls @ 200 mls/hr IV Q6H [facility] Last Infusion: 12/16/23 14:08 Dose: Infused Levofloxacin (Levaquin) 500 mg in 100 mls @ 100 mls/hr IV PREOP YONATHAN Stop: 12/16/23 23:00 Acetaminophen (Ofirmev) 1,000 mg in 100 mls @ 400 mls/hr IV PREOP YONATHAN Stop: 12/16/23 23:00 Lisinopril (Lisinopril 40 Mg Tablet) 40 mg PO DAILY [facility]; Protocol Last Admin: 12/16/23 08:18 Dose: Not Given Magnesium Hydroxide (Milk Of Magnesia 30 Ml Oral.Susp) 30 ml PO DAILY PRN PRN Reason: Constipation Melatonin (Melatonin 3 Mg Tablet) 6 mg PO BEDTIME PRN PRN Reason: Insomnia Metoprolol Succinate (Metoprolol Succinate Er 50 Mg Tab.Er.24h) 50 mg PO DAILY [facility]; Protocol Last Admin: 12/16/23 08:18 Dose: Not Given Multivitamins/Vitamin C (Multivitamin Tablet) 1 tab PO DAILY [facility] Last Admin: 12/16/23 08:11 Dose: 1 tab Omeprazole (Omeprazole 20 Mg Capsule.Dr) 20 mg PO DAILY@0630 [facility] Last Admin: 12/16/23 05:49 Dose: Not Given Ondansetron HCl (Ondansetron Hcl 4 Mg/2 Ml Vial) 4 mg IVPUSH Q8H PRN PRN Reason: Nausea and Vomiting Last Admin: 12/15/23 05:16 Dose: 4 mg Oxycodone HCl (Oxycodone Hcl Immed Release 5 Mg Tablet) 5 mg PO Q6H PRN PRN Reason: Pain, Moderate(Pain Scale 4-6) Last Admin: 12/16/23 13:04 Dose: 5 mg Paroxetine HCl (Paroxetine Hcl 10 Mg Tablet) 10 mg PO DAILY [facility] Last Admin: 12/16/23 08:11 Dose: 10 mg Sodium Chloride (0.9 % Sodium Chloride Flush 3 Ml Syringe) 3 ml [facility] [place] Admin: 12/16/23 08:13 Dose: 3 ml Home Medications ?Medication ?Instructions ?Recorded ?Confirmed ?Last Taken ?Type diltiazem HCl 300 mg 300 mg PO DAILY 07/16/22 12/15/23 12/14/23 History capsule,extended release 24 hr lisinopril 40 mg tablet 40 mg PO DAILY 07/16/22 12/15/23 12/14/23 History omeprazole 20 mg capsule,delayed 20 mg PO DAILY@0630 07/16/22 12/15/23 12/14/23 History release cyclobenzaprine 10 mg tablet 10 mg PO TID PRN Muscle Pain 12/15/23 12/15/23 Unknown History fexofenadine 180 mg tablet 180 mg PO DAILY 12/15/23 12/15/23 12/14/23 History metoprolol succinate 100 mg 50 mg PO DAILY 12/15/23 12/15/23 12/14/23 History tablet,extended release 24 hr paroxetine HCl 10 mg tablet 10 mg PO DAILY 12/15/23 12/15/23 12/14/23 History vitamin B complex 1 cap PO DAILY 12/15/23 12/15/23 12/14/23 History Physical Exam 2 Vital Signs: Vital Signs: Last Vital Signs Temp 97.3 F 12/16/23 07:48 Pulse 96 12/16/23 07:48 Resp 18 12/16/23 07:48 BP 108/58 L 12/16/23 07:48 Pulse Ox 96 12/16/23 07:48 O2 Del Method Room Air 12/16/23 07:48 BMI result Body Mass Index 37.4 Const: General: cooperative, healthy appearing, comfortable and no acute distress Orientation/consciousness: patient oriented x3 HEENT: Face and sinus: Yes normal facial exam Mouth: moist mucous membranes Neck: Neck: Yes normal visual inspection, Yes full ROM and Yes trachea midline Chest: Chest palpation & inspection: normal inspection of the chest Resp: Effort & Inspection: normal respiratory effort, able to speak in complete sentences and no respiratory distress GI: Inspection: Yes normal to inspection Back/Spine/Pelvis: Cervical Spine: normal cervical lordosis Thoracic/Lumbar Spine: thoracic and lumbar spine normal to inspection Skin: General skin exam: no rashes or lesions noted Neuro: General: patient oriented x3, tone normal and moves all extremities Extrem: General: Yes normal to inspection and Yes capillary refill normal Results Labs 12/15/23 06:45 12/15/23 06:45 Labs: Urine 12/14/23 Range/Units 23:32 Urine Color Yellow Urine Appearance Cloudy Urine pH 5.5 (5.0-9.0) Ur Specific [place] 1.020 (1.005-1.025) Urine Protein 30 (1+) H (Neg-Trace) mg/dL Urine Glucose (UA) 250 H (Negative) mg/dL Urine Test NEGATIVE (NEGATIVE) All other labs normal. Assessment and Plan (1) Hydronephrosis with ureteral calculus: Status: Acute Plan Ureteroscopy We discussed the nature of the decision and reasonable alternatives for performing ureteroscopy. Options such as medical therapy were discussed. Interventions include chemical dissolution, ESWL, ureteroscopy with laser lithotripsy and stent placement, PCNL. The relative uncertainties and benefits related to each alternate procedure were adequately discussed. General surgical risks including, but not limited to - pain, bleeding, infection, myocardial infarction, pulmonary embolus, deep vein thrombosis and cerebrovascular accident which may result in further hospitalization were discussed. Full disclosure of the procedure as well as all major risks, benefits and complications were discussed including but not limited to damage to the urethra, bladder and kidney infection, damage to the ureter, stent migration or malposition, scarring to the renal pelvis, remnant stone fragments, subsequent stone passage with need for secondary procedures. The overall secondary procedure rate is approximately 10-15%. The overall clearance rate is approximately 90-95%. Success of the procedure in the short-term does not necessarily guarantee that long-term success will be maintained. Suitable follow up will need to be maintained. The patient showed understanding of discussion and wishes to proceed with - cystoscopy, retrograde, ureteroscopy, possible lithotripsy/stone basketing and stent on the left side Procedures Date of Service Date of Service: 12/16/23
[2023-12-16] MEDS: Lactated Ringers 1,000 ML 80 ML IVCONT (14:58)
--- NOTE | 2023-12-16 15:34 | W.PM.OPN ---
Operative Note Operative Note Date of Service: 12/16/23 Narrative: PreOperative Diagnosis: Distal left ureteric stone with hydronephrosis Post Operative Diagnosis: Distal left ureteric stone with hydronephrosis Procedure: - cystoscopy, left retrograde - left dilatation of ureteric orifice under fluoroscopy - left ureteroscopy, laser lithotripsy, stone basketing - left stent placement Surgeon: Dr Filiberto Yin Anesthesia: General Indications for procedure: Admission with distal left ureteric stone. Is spiking temperature to 38.5 in preop area. This despite Zosyn. Procedure: After informed consent was verified the patient was brought to the operating room and placed in a supine position. Anesthesia was administered per protocol. The patient was placed in a modified dorsal lithotomy position and prepped and draped in a sterile fashion. Safety pause time-out and side of surgery were confirmed. Images were available for review. Antibiotic administration confirmed. A 22 Grenadian cystoscope was inserted per urethra. The urethra was without aabnormality. The bladder was normal in its entirety. Both ureteric orifices were seen in normal position . The left ureteric orifice was cannulated and a retrograde examination was performed. Filling defect at lower ureter. Significant hydroureteronephrosis . A Sensor guidewire was placed up to the level of the renal pelvis under fluoroscopy. The kidney was aspirated after the open-ended catheter was placed over the wire up to the level of the renal pelvis. Aspiration sent for culture. Sensor wire placed back into renal pelvis. Open-ended catheter removed. The rigid cystoscope was removed. A [place] dilator was placed over the Sensor guidewire and used to dilate the ureteric orifice under fluoroscopy. The dilator was removed. The semi rigid ureteral scope was placed alongside the Sensor guidewire. A stone was found in the distal portion of the ureter. It appeared to be covered with biofilm.. Using a 365 micro holmium laser fiber the stone was broken into small pieces using a combination of hammer and dusting techiques. Stone fragments were removed from the ureter using a 2.4 Grenadian ZeroTip basket. Once the fragments were removed a decision was made to place a ureteric stent. Based on the height of the patient a 6 Fr x 22 stent was used. The string was removed from the stent prior to placement. A 6 Grenadian by 22 cm double-J stent was placed into the renal pelvis and bladder under a combination of fluoroscopy and direct visualization. The symphisis pubis was used as a radiographic marker to release the stent and good coil was seen within the bladder confirming position The bladder was emptied. The patient tolerated the procedure well and was extubated in the operating room. They were transferred in stable condition to the recovery area. Pathology: stones Drains: Double J stent as described above
[2023-12-16] MEDS: Metoprolol Succinate ER 50 MG TAB.ER.24H PO (17:37)
--- NOTE | 2023-12-16 17:38 | PC.NURSE ---
Morning dose of metoprolol was held this am per provider d/t procedure. Pt pulse 120's upon return from procedure. Order from provider to give dose of metoprolol that was held
[2023-12-17] MEDS: Piperacillin Sodium/Tazobactam 4.5 GM in 0.9 % Sodium Chloride 100 ML IV ×2 (01:46→07:24)
--- NOTE | 2023-12-17 01:58 | PC.NURSE ---
0200-Oxygen via n/c at 2liters that was applied in OR removed at this time and will monitor O2 sat level with scheduled vitals. Patient with last reading was 99% on 2 liters and now agreeable to remove and monitor. Barnes catheter draining pink-tinged to dark rosa urine at this time and will be removed this am 0600.
[2023-12-17 03:12] VITALS: BP 125/71; PULSE 111; RESP 17; TEMP 36.4; O2SAT 95
[2023-12-17] MEDS: Lactated Ringers 1,000 ML 80 ML IVCONT (04:36)
[2023-12-17] MEDS: Butalb/Acetamin/Caff 50/325/40 TABLET 1 TAB PO (04:55)
[2023-12-17] MEDS: Omeprazole 20 MG CAPSULE.DR PO (06:14)
--- NOTE | 2023-12-17 06:27 | PC.NURSE ---
0615- Barnes Catheter removed as per MD orders, output 1200ml rosa urine, tolerated well, dtv between 2097-1301.
[2023-12-17 07:23] VITALS: BP 115/59; PULSE 104; RESP 18; TEMP 37.3; O2SAT 96
[2023-12-17] MEDS: 0.9 % Sodium Chloride Flush 3 ML SYRINGE IVFLUSH (07:24)
[2023-12-17] MEDS: dilTIAZem HCL CD 300 MG CAP.ER.24H PO (07:25)
[2023-12-17] MEDS: PARoxetine HCL 10 MG TABLET PO (07:25)
[2023-12-17] MEDS: Multivitamin TABLET 1 TAB PO (07:25)
[2023-12-17] MEDS: lisinopriL 40 MG TABLET PO (07:25)
[2023-12-17] MEDS: Metoprolol Succinate ER 50 MG TAB.ER.24H PO (07:26)
[2023-12-17] MEDS: oxyCODONE HCl Immed Release 5 MG TABLET PO (09:19)
--- NOTE | 2023-12-17 09:39 | HO.POSTANES ---
Post Anesthesia Evaluation Post Anesthesia Evaluation Date of Service: 12/16/23 Vital Signs: Vital Signs Temp Pulse Resp BP Pulse Ox O2 Del Method O2 Flow Rate 12/17/23 07:23 99.2 F 104 H 18 115/59 L 96 Room Air 12/17/23 03:12 97.6 F 111 H 17 125/71 95 Room Air 12/16/23 23:20 100 12/16/23 22:23 97.2 F 111 H 18 139/84 99 Nasal Cannula 2 Anesthesia: General Mental Status: Awake Pain Control: Satisfactory Nausea/Vomiting: None Hydration: Adequate Anesthesia-Related Issues: No Anes. Related Issues
[2023-12-17 09:49] LABS: Anion Gap 11 (12-20); Blood Urea Nitrogen 7 mg/dL (9-16); Carbon Dioxide 20 mmol/L (22-29); Chloride 108 mmol/L (96-108); Creatinine Clr Calc Pharmacy 95.7; Estimated Glomerular Filt Rate > 60; Glucose Random 124 mg/dL (60-115); Potassium 3.4 mmol/L (3.3-5.1); Sodium 136 mmol/L (135-145)
[2023-12-17 10:23] LABS: Calcium 8.7 mg/dL (8.4-10.2)
--- NOTE | 2023-12-17 10:26 | MHC.CM.PN ---
Per MD rounds patient medically cleared for dc home self care. Private transport at 12 pm - RN and [employer]IC[employer] aware.
--- NOTE | 2023-12-17 10:35 | P.DS_ITS ---
DS: Providers Provider Date of Service: 12/17/23 Date of admission: 12/15/23 01:15 Primary care physician: Alex Sheriff MD Consults: 12/15/23 01:16 Consult to Urology Routine Consulting Provider: [facility] Reason for consultation: obstructing stone DS: Diagnosis Discharge Diagnosis (1) Hydronephrosis with ureteral calculus: Status: Acute DS: Summary Hospital Course Hospital Course: History and physical as per admitting provider. This is a 48-year-old female with pertinent history of hypertension, gastroesophageal reflux disease who presents to the emergency department for evaluation of left flank pain. Patient states her symptoms started on the day of presentation [place] was [place]. The flank pain is constant, nonradiating, progressive and without any relieving factors. Also has associated nausea but no nonbloody emesis. Patient had a right-sided kidney stone about a month ago. No fever, chills, chest pain, palpitations, shortness of breath, changes in urinary or bowel habits. In the emergency department, imaging with obstructing 8 mm distal left ureteral calculus with moderate hydronephrosis. Patient with elevated WBC, sinus tachycardia. UA with positive nitrite, leukocyte esterase, more than 50 WBC and 4+ bacteria. 48-year-old woman treated for sepsis secondary to pyelonephritis with left distal ureteral calculus and E coli bacteremia. Initially started on IV Zosyn, resuscitated with IV fluids, IV opiates p.r.n. for pain. Seen evaluated by Urology and is status post cystoscopy, left retrograde, left dilatation of ureteric orifice, left ureteroscopy with laser lithotripsy and stone basketing. Left stent placement. Patient is to follow up with Dr. Yin's office for stent removal. At this time pain is well controlled and patient is stable for discharge. He will be discharged with 10 days of oral Ceftin for E coli bacteremia. Hypertension. Stable blood pressures during hospitalization. May continue diltiazem, lisinopril and metoprolol Mental health. Continue home medications GERD. Continue PPI Severe obesity. BMI 37.4. Discussed importance of weight management as this may be contributing to worsening of other comorbidities Time Attestation Discharge Coordination Time (in mins): 38 Quality: Safe Use of Opioids Does Pt have an Active Cancer Diagnosis on the Problem List?: No Quality: Stroke Does the patient have a stroke diagnosis?: No Physical Exam Vital Signs: Vital Signs: Last Vital Signs Temp 99.2 F 12/17/23 07:23 Pulse 104 H 12/17/23 07:23 Resp 18 12/17/23 07:23 BP 115/59 L 12/17/23 07:23 Pulse Ox 96 12/17/23 07:23 O2 Del Method Room Air 12/17/23 07:23 O2 Flow Rate 2 12/16/23 22:23 BMI result Body Mass Index 37.4 Appearing in no acute distress head is normocephalic atraumatic eyes pupils are PERRLA sclera is anicteric mouth throat mucous membranes are intact and moist neck is supple no lymphadenopathy, no JVD noted lung sounds are clear to auscultation heart regular rate rhythm, clear S1, S2 positive bowel sounds, abdomen is soft, nontender neuro patient is alert x3, no focal deficits DS: Data Data Completed and Pending Completed studies during hospitalization [Text1]: Procedures Dilation of Right Ureter with Intraluminal Device, Via Natural or Artificial Opening Endoscopic (07/16/22) Excision of Bladder, Via Natural or Artificial Opening Endoscopic, Diagnostic (07/16/22) Fluoroscopy of Right Kidney, Ureter and Bladder using Low Osmolar Contrast (07/16/22) Pending studies at discharge: Pending at discharge 12/16/23 15:48 Surgical [PTH] Routine Labs on day of discharge: Laboratory Results - last 24 hr 12/17/23 08:22 Sodium 136 Potassium 3.4 Chloride 108 Carbon Dioxide 20 L Anion Gap 11 L BUN 7 L Creatinine 0.77 Estim Creat Clear Calc 95.7 Estimated GFR > 60 Random Glucose 124 H Calcium 8.7 Preliminary micro results at discharge 12/15/23 00:51 Blood Culture - Preliminary Blood - Venous No growth after 48 hours. 12/15/23 00:50 Urine Culture - Preliminary Urine clean catch - Clean Catch Midstream Culture in progress. Discharge Plan Discharge Anticipated Discharge Date/Time: 12/17/23 10:30 Patient Disposition: Home, Self-Care Discharge Diagnosis: Sepsis Pyelonephritis Left distal ureteral calculus Referrals: Matteo Littlejohn MD [Physician] - 1 Week Alex Sheriff MD [Primary Care Provider] - 1 Week Discharge Medications: New cefuroxime axetil 500 mg tablet 500 mg PO BID Qty: 20 0RF Continued cyclobenzaprine 10 mg tablet 10 mg PO TID PRN (Reason: Muscle Pain) metoprolol succinate 100 mg tablet extended release 24 hr 50 mg PO DAILY fexofenadine 180 mg tablet 180 mg PO DAILY vitamin B complex Capsule 1 cap PO DAILY paroxetine HCl 10 mg tablet 10 mg PO DAILY omeprazole 20 mg Capsule,Delayed Release(Dr/Ec) 20 mg PO DAILY@0630 lisinopril 40 mg Tablet 40 mg PO DAILY diltiazem HCl 300 mg Capsule,Extended Release 24hr 300 mg PO DAILY Discharge Orders: Discharge Order (Routine); Ordered 12/17/23 Ordered By: Audrey Santiago Diet: Advance to usual diet Activity on Discharge: As tolerated Stand Alone Forms: Patient Portal Discharge page Print Language: Tamazight Care Plan Goals: Follow up with Urology for stent removal Health Concerns: Sepsis Pyelonephritis Left distal ureteral calculus Plan of Treatment: Follow-up with primary care provider as needed Take all medications as prescribed Assessment: See discharge summary
[2023-12-17] MEDS: Ketorolac Tromethamine 15 MG/ML VIAL IVPUSH (10:53)
[2023-12-20 19:48] LABS: Stone Source LEFT URETERAL STONE
== END 2023-12-17 11:27 | disposition home or self-care (01) | DRG 854 ==
LOC: HO.ED 23:50 → HO.EDOVER 12-15 01:20 → HO.S3 12-15 02:07
PROVIDERS: Physician Assistant Medical; Urology; Admitting Provider Student in an Organized Health Care Education/Training Program; Emergency Provider Emergency Medicine; PCP Internal Medicine; Visit Provider Nurse Practitioner Acute Care
PROC: 0T778DZ Dilation of Left Ureter with Intraluminal Device, Via Natural or Artificial Opening Endoscopic (ICD-10-PCS; principal; 2023-12-16 15:20)
DX: A41.9 Sepsis, unspecified organism (principal); N13.6 Pyonephrosis; E66.01 Morbid (severe) obesity due to excess calories; I10 Essential (primary) hypertension; K21.9 Gastro-esophageal reflux disease without esophagitis; B96.20 Unspecified Escherichia coli [E. coli] as the cause of diseases classified elsewhere; Z68.37 Body mass index [BMI] 37.0-37.9, adult; Z87.891 Personal history of nicotine dependence; Z79.899 Other long term (current) drug therapy
CPT/HCPCS: 36415; 74176; 80048; 80053; 81001; 81025; 82365; 83605; 83690; 83735; 85025; 87040; 87070; 87077; 87086; 87088; 87186; 87205; 88300; 99285; C1758; C1769; C2617; J0131; J0696; J1171; J1885; J1956; J2003; J2060; J2405; J2543; J2704; J3010; J7120; Q9967

== ENCOUNTER → 2023-12-15 01:15 | Outpatient (BNV) | payer OTHER, SELFPAY | PROVIDERS: Admitting Provider Student in an Organized Health Care Education/Training Program; Emergency Provider Emergency Medicine; PCP Internal Medicine; Visit Provider Urology | DX: N13.2 Hydronephrosis with renal and ureteral calculous obstruction (principal) | CPT/HCPCS: 52356; 74420; 99222; 99499 ==

== ENCOUNTER → 2023-12-15 01:15 | Outpatient (BNV) | payer OTHER, SELFPAY | PROVIDERS: Admitting Provider Student in an Organized Health Care Education/Training Program; Emergency Provider Emergency Medicine; PCP Internal Medicine; Visit Provider Student in an Organized Health Care Education/Training Program | DX: N20.0 Calculus of kidney (principal); N12 Tubulo-interstitial nephritis, not specified as acute or chronic | CPT/HCPCS: 99222; 99232; 99239; 99499 ==

== ENCOUNTER 2023-12-18 20:17 | Inpatient (IN) | payer OTHER, SELFPAY ==
--- NOTE | ~2023-12-18 | CT_ITS ---
EXAMINATION: CT ABDOMEN AND PELVIS WITH CONTRAST CLINICAL INFORMATION: Left lower quadrant abdominal pain. COMPARISON: CT abdomen and pelvis 12/15/2023. TECHNIQUE: Multidetector volumetric images were obtained from the superior aspect of the liver through the pubic symphysis following administration 85 mL of Omnipaque 350 intravenous contrast. Sagittal and coronal reformatted images were obtained on the technologist's workstation. Oral contrast: No This CT examination was performed using dose optimization techniques as appropriate, variously including the following: *Automated exposure control *Adjustment of mA and/or kV according to patient size (this includes techniques or standardized protocols for targeted exams where dose is matched to indication/reason for exam; i.e. extremities or head) *Use of iterative reconstruction technique DLP: 728 mGy-cm FINDINGS: LUNG BASES: The visualized lung bases are unremarkable. LIVER, GALLBLADDER, AND BILIARY TREE: The liver is normal in size, shape, and attenuation. No focal hepatic lesion or biliary ductal dilatation is present. The gallbladder is unremarkable with no evidence of radiopaque gallstones, gallbladder wall thickening, or obvious pericholecystic inflammatory changes. PANCREAS: Unremarkable. SPLEEN: Unremarkable. ADRENAL GLANDS: Unremarkable. KIDNEYS AND URETERS: The left ureterovesicular catheter is noted. Proximal terminus of the catheter terminates within the proximal left ureter. Moderate left hydronephrosis is present similar findings present 12/15/2023. Delayed left nephrogram enhancement is identified. No perinephric fluid collections identified. Minimal left perinephric inflammatory changes noted. No left renal calculi or ureteral calculi identified. No right-sided urolithiasis visualized. 7 mm low density focus is again noted in the superior pole the right kidney and is suspicious for an incidental renal angiomyolipoma. BLADDER: Moderate physiologic distention. Punctate focus of nondependent gas within the urinary bladder which may relate to recent catheterization. GASTROINTESTINAL TRACT: Marked colonic diverticulosis. Normal appendix. No free intraperitoneal fluid or gas collections. No inflammatory changes noted within the sigmoid mesentery or small bowel mesentery. No free intraperitoneal gas identified. Trace, physiologic range. Fluid. ABDOMINAL WALL: No significant hernia is appreciated. LYMPH NODES: Normal. VASCULAR: Mild scattered calcific atherosclerosis PELVIC VISCERA: Grossly normal appearance of uterus. No adnexal lesions. OSSEOUS STRUCTURES: No suspicious skeletal lesions. CT/CT abdomen pelvis w IV con IMPRESSION: *Interval placement of a left ureterovesicular catheter. The proximal terminus of the catheter terminates within the proximal left ureter. Moderate left hydronephrosis and ureterectasis is present and is similar in degree to findings present 12/15/2023. No urolithiasis identified. Mild left perinephric inflammatory changes and delayed nephrographic enhancement. No left-sided perinephric fluid collections. *Marked colonic diverticulosis. No evidence of acute diverticulitis. Electronically signed by: Nathan Nair MD 12/19/2023 01:01 AM EDT
[2023-12-18 20:42] VITALS: BP 146/86; PULSE 93; RESP 20; TEMP 36.5; O2SAT 98; BMI 36.0
[2023-12-18 20:57] LABS: MANUAL DIFF FLAG NO
[2023-12-18 21:02] LABS: Basophils Absolute Auto 0.1 X10*3/uL (0.0-0.2); Basophils Percent Auto 0.7 % (0-2); Eosinophils Absolute Auto 0.2 X10*3/uL (0.0-0.4); Hematocrit 34.3 % (37.0-47.0); Imm Gran Abs Auto 0.04 X10*3/uL (0.00-0.03); Imm Gran Pct Auto 0.6 % (0.0-0.4); Lymphocytes Absolute Auto 1.4 X10*3/uL (1.2-4.9); Lymphocytes Percent Auto 20.3 % (20-40); Mean Corpuscular Hemoglobin 27.5 pg (27.0-33.0); Mean Corpuscular Volume 78.5 fL (80.0-98.0); Mean Platelet Volume 9.7 fL (9.4-12.3); Monocytes Absolute Auto 0.8 X10*3/uL (0.1-1.2); Monocytes Percent Auto 11.2 % (2-11); Neutrophils Absolute Auto 4.3 x10*3/uL (2.0-8.3); Neutrophils Percent Auto 64.2 % (45-73); Platelet Count 186 X10*3/uL (160-400); Red Blood Count 4.37 X10*6/uL (4.20-5.50); Red Cell Distribution Width 14.7 % (11.0-16.0); White Blood Count 6.7 X10*3/uL (4.8-10.8)
[2023-12-18 21:13] LABS: Alanine Aminotransferase 91 U/L (0-31); Albumin Level 3.6 g/dL (3.5-5.0); Alkaline Phosphatase 98 U/L (39-117); Anion Gap 13 (12-20); Aspartate Amino Transferase 53 U/L (5-31); Bilirubin Total 0.4 mg/dL (0.0-1.0); Blood Urea Nitrogen 10 mg/dL (9-16); Carbon Dioxide 20 mmol/L (22-29); Chloride 109 mmol/L (96-108); Creatinine Clr Calc Pharmacy 89.2; Estimated Glomerular Filt Rate > 60; Glucose Random 121 mg/dL (60-115); Lipase 29 U/L (8-78); Potassium 3.2 mmol/L (3.3-5.1); Sodium 139 mmol/L (135-145); Total Protein 6.8 g/dL (6.5-8.0)
[2023-12-18 21:24] LABS: Bacteria Urine None Seen (None Seen); Hyaline Casts Urine 0-2 /LPF (0-2); RBC Urine >20 /HPF (0-2); Squamous Epithelial Cell Urine 0-2 /HPF (0-2); WBC Urine 21-50 /HPF (0-5)
[2023-12-18 21:25] LABS: Appearance Urine Clear; Glucose Urine UA Negative (Negative); Leukocyte Esterase Urine Moderate (2+) (Negative); Nitrite Urine Negative (Negative); PH 6.5 (5.0-9.0); Specific Gravity - Urine 1.015 (1.005-1.025); UMIC TRIGGER UACC YES; Urine Blood Large (3+) (Negative); Urine Ketones Negative (Negative); Urine Protein 100 (2+) mg/dL (Neg-Trace)
[2023-12-18 21:28] LABS: Color Urine Yellow; UACC Culture Trigger YES
[2023-12-18 22:08] VITALS: BP 140/108; PULSE 86; RESP 20; TEMP 37.1; O2SAT 98
[2023-12-18 22:19] LABS: UPreg QC Valid YES; Urine Pregnancy NEGATIVE (NEGATIVE)
[2023-12-18] MEDS: HYDROmorphone HCl 0.5 MG/0.5 ML SYRINGE IVPUSH (22:28)
[2023-12-18 22:47] LABS: Lactic Acid 1.6 mmol/L (0.5-2.0)
[2023-12-18] MEDS: iohexoL 350 MG/ML 100 ML INFUS..BTL 85 ML IV (22:57)
[2023-12-18 23:22] VITALS: BP 143/90; PULSE 100; RESP 16; TEMP 37.1; O2SAT 100
[2023-12-19] VITALS: BP 143/83; PULSE 103; RESP 20; O2SAT 97
[2023-12-19] MEDS: HYDROmorphone HCl 0.5 MG/0.5 ML SYRINGE IVPUSH (00:59)
--- NOTE | 2023-12-19 01:11 | ED.ABDPAIN ---
HPI - Abdominal Pain General Chief Complaint: Abdominal Pain Stated Complaint: Abdominal Pain Time Seen by Provider: 12/18/23 21:55 Source: patient History of Present Illness ED Provider: Domo HPI narrative: 48-year-old female with past medical history of recent admission for infected kidney stone now status post ureteral stent placement presented today for left flank and left lower quadrant abdominal pain. Patient states that she was discharged yesterday and her pain was manageable however today she is endorsing severe left lower quadrant abdominal pain that radiates to her left flank. She also endorses mild dysuria. She denies fevers, chills, chest pain, shortness of breath. MD elicited complaint: abdominal pain and flank pain Related Data Home Medications ?Medication ?Instructions ?Recorded ?Confirmed diltiazem HCl 300 mg 300 mg PO DAILY 07/16/22 12/15/23 capsule,extended release 24 hr lisinopril 40 mg tablet 40 mg PO DAILY 07/16/22 12/15/23 omeprazole 20 mg capsule,delayed 20 mg PO DAILY@0630 07/16/22 12/15/23 release cyclobenzaprine 10 mg tablet 10 mg PO TID PRN Muscle Pain 12/15/23 12/15/23 fexofenadine 180 mg tablet 180 mg PO DAILY 12/15/23 12/15/23 metoprolol succinate 100 mg 50 mg PO DAILY 12/15/23 12/15/23 tablet,extended release 24 hr paroxetine HCl 10 mg tablet 10 mg PO DAILY 12/15/23 12/15/23 vitamin B complex 1 cap PO DAILY 12/15/23 12/15/23 Previous Rx's ?Medication ?Instructions ?Recorded cefuroxime axetil 500 mg tablet 500 mg PO BID #20 tabs 12/17/23 Allergies Allergy/AdvReac Type Severity Reaction Status Date / Time morphine [MORPHINE] Allergy Intermediate PAPLITATIONS, Verified 12/18/23 20:45 increased heart rate Review of Systems Review of Systems Patient endorses dysuria, left lower quadrant abdominal pain and left flank pain Yes all other systems are reviewed and are negative PMFSH Past Medical History Medical History (Updated 12/19/23 @ 02:05 by Ethan Oliveros MD) SVT (supraventricular tachycardia) HTN (hypertension) Surgical History (Updated 12/16/23 @ 14:41 by Natalya Palacios RN) Hx of cystoscopy Social History Social History Household Members: Spouse and Children Housing: House Are you a primary manager primary care to a significant other at home: No Do you presently have visiting nurse or other home services: No Alcohol intake: never Patient Tobacco Use Status: Former Tobacco user Tobacco use type: Cigarette Years Smoked: 11 Smoked in Last 30 Days: No Second Hand Smoke Exposure: No Use of substances other than those prescribed or required for medical reasons: No Advance Directives: No Advance Directives Information Provided: No Do you have a plan to hurt others: No Plan Patient : No service: No Current occupational status: unemployed 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 Physical Exam ED Vital Signs: Vital Signs - 24 hr 12/18/23 20:42 12/18/23 22:08 12/18/23 23:22 Temperature 97.7 F 98.7 F 98.8 F Pulse Rate 93 86 100 Respiratory Rate 20 20 16 Blood Pressure 146/86 H 140/108 H 143/90 H Pulse Oximetry 98 98 100 Oxygen Delivery Method Room Air Room Air Room Air 12/19/23 00:00 12/19/23 01:35 Temperature Pulse Rate 103 H 103 H Respiratory Rate 20 18 Blood Pressure 143/83 H 141/79 H Pulse Oximetry 97 100 Oxygen Delivery Method Room Air BMI result Body Mass Index 36.0 Well-appearing female in mild distress Lungs clear to auscultation bilaterally; normal S1-S2 regular rate and rhythm Left lower quadrant tenderness palpation; abdomen soft and nondistended Left flank tenderness to palpation; no skin changes appreciated Medical Decision Making Medical Decision Making MDM Narrative: This is a 48-year-old female presenting for left lower quadrant on pain left flank pain in setting of recent stent placement. I am concerned for the following; pain secondary to stent, stent dislodgement/migration, persistent stone, pyelonephritis, hydronephrosis -labs, analgesics and imaging studies ordered -labs notable for no white count, stable H&H, normal creatinine, electrolytes within normal limits, mildly elevated LFT -I reviewed the patient's CT scan and I appreciate left ureteral stent and left hydro; radiology interpretation confirmed relatively unchanged hydronephrosis compared to patient's imaging from 12/14 -I am concerned that patient might need patient for pain control however I will reach out to urology for further guidance -patient admitted Differential Diagnosis Differential Diagnoses: The differential diagnosis associated with the presentation includes Pain secondary to stent placement, stent dislodgement, persistent stone, pyelonephritis, hydronephrosis Lab Data 12/18/23 20:53 12/18/23 20:53 Labs: Lab Results 12/18/23 12/18/23 12/18/23 Range/Units 20:53 21:11 22:32 WBC 6.7 (4.8-10.8) X10*3/uL RBC 4.37 (4.20-5.50) X10*6/uL Hgb 12.0 (12.0-16.0) g/dl Hct 34.3 L (37.0-47.0) % MCV 78.5 L D (80.0-98.0) fL MCH 27.5 (27.0-33.0) pg MCHC 35.0 (31.0-35.0) g/dl RDW 14.7 (11.0-16.0) % Plt Count 186 (160-400) X10*3/uL MPV 9.7 (9.4-12.3) fL Immature Gran % (Auto) 0.6 H (0.0-0.4) % Neut % (Auto) 64.2 (45-73) % Lymph % (Auto) 20.3 (20-40) % [place] % (Auto) 11.2 H (2-11) % Eos % (Auto) 3.0 (0-4) % Baso % (Auto) 0.7 (0-2) % Lymph # (Auto) 1.4 (1.2-4.9) X10*3/uL [place] # (Auto) 0.8 (0.1-1.2) X10*3/uL Eos # (Auto) 0.2 (0.0-0.4) X10*3/uL Baso # (Auto) 0.1 (0.0-0.2) X10*3/uL Abs Immat Gran (auto) 0.04 H (0.00-0.03) X10*3/uL Absolute Neuts (auto) 4.3 (2.0-8.3) x10*3/uL Absolute Nucleated RBC 0.000 (0.0-0.012) X10*3/uL Nucleated RBC % (auto) 0.0 (0.0-0.2) /100WBC Sodium 139 (135-145) mmol/L Potassium 3.2 L (3.3-5.1) mmol/L Chloride 109 H (96-108) mmol/L Carbon Dioxide 20 L (22-29) mmol/L Anion Gap 13 (12-20) BUN 10 (9-16) mg/dL Creatinine 0.81 (0.5-1.4) mg/dL Estim Creat Clear Calc 89.2 Estimated GFR > 60 Random Glucose 121 H (60-115) mg/dL Lactic Acid 1.6 (0.5-2.0) mmol/L Calcium 9.0 (8.4-10.2) mg/dL Total Bilirubin 0.4 (0.0-1.0) mg/dL AST 53 H (5-31) U/L ALT 91 H (0-31) U/L Alkaline Phosphatase 98 (39-117) U/L Total Protein 6.8 (6.5-8.0) g/dL Albumin 3.6 (3.5-5.0) g/dL Lipase 29 (8-78) U/L Urine Color Yellow Urine Appearance Clear Urine pH 6.5 (5.0-9.0) Ur Specific [place] 1.015 (1.005-1.025) Urine Protein 100 (2+) H (Neg-Trace) mg/dL Urine Glucose (UA) Negative (Negative) mg/dL Urine Ketones Negative (Negative) mg/dL Urine Blood Large (3+) H (Negative) Urine Nitrite Negative (Negative) Ur Leukocyte Esterase Moderate (2+) H (Negative) Urine RBC >20 H (0-2) /HPF Urine WBC 21-50 H (0-5) /HPF Ur Squamous Epith Cells 0-2 (0-2) /HPF Urine Bacteria None Seen (None Seen) Hyaline Casts 0-2 (0-2) /LPF Urine Test NEGATIVE (NEGATIVE) Medications Administered Discontinued Medications Generic Name Dose Route Start Last Admin Trade Name Freq PRN Reason Stop Dose Admin Ceftriaxone Sodium 1 gm 12/19/23 01:13 12/19/23 01:40 Ceftriaxone Sodium 1 Gm Vial IVPUSH 12/19/23 01:14 1 gm ONCE ONE Administration Hydromorphone HCl 0.5 mg 12/18/23 22:01 12/18/23 22:28 Hydromorphone Hcl 0.5 Mg/0.5 Ml Syringe IVPUSH 12/18/23 22:02 0.5 mg ONCE ONE Administration Protocol Hydromorphone HCl 0.5 mg 12/19/23 00:52 12/19/23 00:59 Hydromorphone Hcl 0.5 Mg/0.5 Ml Syringe IVPUSH 12/19/23 00:53 0.5 mg ONCE ONE Administration Protocol Iohexol 85 ml 12/18/23 22:55 12/18/23 22:57 Iohexol 350 Mg/Ml 100 Ml Infus..Btl IV 12/18/23 22:56 85 ml ONCE ONE Administration Discharge Plan Discharge Clinical Impression: Post-op pain Patient Disposition: Admitted As Inpatient Print Language: Azerbaijani
[2023-12-19 01:35] VITALS: BP 141/79; PULSE 103; RESP 18; O2SAT 100
[2023-12-19] MEDS: cefTRIAXone sodium 1 GM VIAL IVPUSH ×2 (01:40→20:13)
[2023-12-19] MEDS: Ketorolac Tromethamine 15 MG/ML VIAL IVPUSH (02:08)
[2023-12-19] MEDS: Acetaminophen 325 MG TABLET 975 MG PO ×2 (02:08→22:35)
--- NOTE | 2023-12-19 03:18 | PM.IMHP ---
History of Present Illness Date of Service: 12/19/23 Attending physician on admission: Tim Taylor Chief Complaint: Left flank pain Tank Santiago is a 48 years old woman with past medical history significant for GERD, essential hypertension, nephrolithiasis and recent left ureteral stent placement presents to the emergency department complaining of left flank pain that started yesterday. She described the pain as a squeezing radiating to the pelvic area with an intensity of 10/10. She denied any associated nausea, vomiting, diarrhea or constipation. She did not reported suggestive fever, blood in urine and pain with urination. She was recently hospitalized with sepsis secondary to pyelonephritis with left distal ureteral calculus and a coli bacteremia. A left ureteral stent was placed by Dr. Yin. She was discharged to take a course of Ceftin. She did not report any symptoms such as headache, dizziness, chest pain, shortness of breath or palpitations. In the ED, she was found to have stable vital signs. Blood workup showed no leukocytosis or lactic acidosis. Hemoglobin and platelets are normal. Urinalysis consistent with UTI and hematuria. Abdominal pelvis CT scan with IV contrast showed left ureterovesicular stent with moderate left hydronephrosis and ureterectasis and mild left perinephric inflammatory changes and delayed nephrographic enhancement without perinephric fluid collections. It also showed diverticulosis without evidence of diverticulitis. ED tx: Dilaudid 1 g IV, acetaminophen 975 mg PO, ketorolac 1 g mg IV, ceftriaxone 1 g IV. Review of Systems Review of Systems: All 12 systems were reviewed and normal except as noted in HPI. [facility] Medical History (Updated 12/19/23 @ 03:37 by Tim Taylor MD) SVT (supraventricular tachycardia) HTN (hypertension) Surgical History (Updated 12/16/23 @ 14:41 by Natalya Palacios RN) Hx of cystoscopy Social History Household Members: Spouse and Children Housing: House Are you a primary care professional to a significant other at home: No Do you presently have visiting nurse or other home services: No Alcohol intake: never Patient Tobacco Use Status: Former Tobacco user Tobacco use type: Cigarette Years Smoked: 11 Smoked in Last 30 Days: No Second Hand Smoke Exposure: No Use of substances other than those prescribed or required for medical reasons: No Advance Directives: No Advance Directives Information Provided: No Do you have a plan to hurt others: No Plan Patient : No service: No Current occupational status: unemployed 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 Meds Allergies Allergy/AdvReac Type Severity Reaction Status Date / Time morphine [MORPHINE] Allergy Intermediate PAPLITATIONS, Verified 12/18/23 20:45 increased heart rate Active Medications: Current Medications Acetaminophen (Acetaminophen 325 Mg Tablet) 975 mg PO Q6H PRN PRN Reason: Pain, Mild (Pain Scale 1-3), fever or headache Ceftriaxone Sodium (Ceftriaxone Sodium 1 Gm Vial) 1 gm IVPUSH Q24H [facility] Lactated Ringer's (Lr) 1,000 mls @ 100 mls/hr IVCONT .Q10H [facility] Ketorolac Tromethamine (Ketorolac Tromethamine 30 Mg/Ml Vial) 30 mg IVPUSH Q6H [facility] Stop: 12/19/23 14:01 Potassium Chloride (Potassium Chloride Packet 20 Meq Packet) 40 meq PO ONCE ONE Stop: 12/19/23 03:18 Sodium Chloride (0.9 % Sodium Chloride Flush 3 Ml Syringe) 3 ml IVFLUSH QSHIFT [facility] Home Medications ?Medication ?Instructions ?Recorded ?Confirmed ?Last Taken ?Type diltiazem HCl 300 mg 300 mg PO DAILY 07/16/22 12/15/23 12/14/23 History capsule,extended release 24 hr lisinopril 40 mg tablet 40 mg PO DAILY 07/16/22 12/15/23 12/14/23 History omeprazole 20 mg capsule,delayed 20 mg PO DAILY@0630 07/16/22 12/15/23 12/14/23 History release cyclobenzaprine 10 mg tablet 10 mg PO TID PRN Muscle Pain 12/15/23 12/15/23 Unknown History fexofenadine 180 mg tablet 180 mg PO DAILY 12/15/23 12/15/23 12/14/23 History metoprolol succinate 100 mg 50 mg PO DAILY 12/15/23 12/15/23 12/14/23 History tablet,extended release 24 hr paroxetine HCl 10 mg tablet 10 mg PO DAILY 12/15/23 12/15/23 12/14/23 History vitamin B complex 1 cap PO DAILY 12/15/23 12/15/23 12/14/23 History Physical Exam Vital Signs and Narrative: Vital Signs: Last Vital Signs Temp 98.8 F 12/18/23 23:22 Pulse 103 H 12/19/23 01:35 Resp 18 12/19/23 01:35 BP 141/79 H 12/19/23 01:35 Pulse Ox 100 12/19/23 01:35 O2 Del Method Room Air 12/19/23 01:35 BMI result Body Mass Index 36.0 Constitutional - drowsy, however able to converse and answer questions appropriately. Afebrile. Obese. HEENT - Normocephalic. Normal sclerae. Heart - S1S2, RRR, No edema Lungs - Normal lung expansion, Normal respiratory effort, No respiratory distress, CTA bilaterally Abdomen - NT / ND; +BS; No rebound or guarding - Left CVA tenderness Extremities - no calf tenderness bilaterally, no swelling Musculoskeletal - Normal inspection, normal ROM Skin - Warm/Dry Neurological - Alert & oriented x3. Psychological - Appropriate affect Results Labs 12/18/23 20:53 12/18/23 20:53 Labs: Laboratory Results - last 24 hr 12/18/23 12/18/23 12/18/23 20:53 21:11 22:32 MCV 78.5 L D MCH 27.5 MCHC 35.0 RDW 14.7 Plt Count 186 MPV 9.7 Immature Gran % (Auto) 0.6 H Neut % (Auto) 64.2 Lymph % (Auto) 20.3 [place] % (Auto) 11.2 H Eos % (Auto) 3.0 Baso % (Auto) 0.7 Lymph # (Auto) 1.4 [place] # (Auto) 0.8 Eos # (Auto) 0.2 Baso # (Auto) 0.1 Abs Immat Gran (auto) 0.04 H Absolute Neuts (auto) 4.3 Absolute Nucleated RBC 0.000 Nucleated RBC % (auto) 0.0 Anion Gap 13 Estim Creat Clear Calc 89.2 Estimated GFR > 60 Random Glucose 121 H Lactic Acid 1.6 Calcium 9.0 Total Bilirubin 0.4 AST 53 H ALT 91 H Alkaline Phosphatase 98 Total Protein 6.8 Albumin 3.6 Lipase 29 Urine Color Yellow Urine Appearance Clear Urine pH 6.5 Ur Specific [place] 1.015 Urine Protein 100 (2+) H Urine Glucose (UA) Negative Urine Ketones Negative Urine Blood Large (3+) H Urine Nitrite Negative Ur Leukocyte Esterase Moderate (2+) H Urine RBC >20 H Urine WBC 21-50 H Ur Squamous Epith Cells 0-2 Urine Bacteria None Seen Hyaline Casts 0-2 Urine Test NEGATIVE Imaging Radiologist's Impressions: Impressions Abdomen/Pelvis CT 12/18/23 22:30 IMPRESSION: *Interval placement of a left ureterovesicular catheter. The proximal terminus of the catheter terminates within the proximal left ureter. Moderate left hydronephrosis and ureterectasis is present and is similar in degree to findings present 12/15/2023. No urolithiasis identified. Mild left perinephric inflammatory changes and delayed nephrographic enhancement. No left-sided perinephric fluid collections. *Marked colonic diverticulosis. No evidence of acute diverticulitis. Electronically signed by: Nathan Nair MD 12/19/2023 01:01 AM EDT RP Assessment and Plan (1) Pyelonephritis: Status: Acute (2) Hydronephrosis, left: Status: Acute Plan Tank Santiago is a 48 y/o woman admitted with: Left flank pain likely secondary to acute pyelonephritis and left hydronephrosis, recent placement of stent to the left ureter. Admit to hospitalist service. IV fluids. Continue pain control with Toradol and Dilaudid IV. Start empiric IV antibiotic therapy with ceftriaxone. To obtain urine and blood cultures. Urology consult. Essential hypertension. Continue metoprolol, diltiazem and lisinopril. Obesity, class 2. BMI 36.0 kg/m2. Weight loss. On Wegovy. Depression. Continue paroxetine. GERD. Continue omeprazole. DVT prophylaxis: SCDs, early ambulation. Code status: Full Patient will need hospitalization for at least 2 midnights for acute pyelonephritis in the setting of recent ureteral stent placement treatment with IV antibiotic therapy, IV fluids and IV pain management. Quality Stroke Does the patient have a stroke diagnosis?: No VTE Prior VTE?: No VTE Risk Level:: Medical - moderate - high VTE Device Contraindication: N/A - Device Ordered VTE Drug Contraindication: Treatment Not Indicated
[2023-12-19] MEDS: Lactated Ringers 1,000 ML 100 ML IVCONT ×3 (03:36→22:35)
[2023-12-19] MEDS: Potassium Chloride Packet 20 MEQ PACKET 40 MEQ PO (03:37)
[2023-12-19 05:11] LABS: Alanine Aminotransferase 80 U/L (0-31); Albumin Level 3.7 g/dL (3.5-5.0); Anion Gap 16 (12-20); Aspartate Amino Transferase 38 U/L (5-31); Bilirubin Total 0.4 mg/dL (0.0-1.0); Blood Urea Nitrogen 10 mg/dL (9-16); Calcium 8.8 mg/dL (8.4-10.2); Carbon Dioxide 18 mmol/L (22-29); Chloride 110 mmol/L (96-108); Creatinine Clr Calc Pharmacy 89.2; Estimated Glomerular Filt Rate > 60; Glucose Random 137 mg/dL (60-115); Sodium 140 mmol/L (135-145); Total Protein 6.9 g/dL (6.5-8.0)
[2023-12-19 05:19] LABS: Alkaline Phosphatase 90 U/L (39-117)
[2023-12-19] MEDS: HYDROmorphone HCl 1 MG/ML SYRINGE IVPUSH ×2 (06:48→20:11)
[2023-12-19 08:25] VITALS: BP 104/80; PULSE 82; RESP 16; TEMP 36.8; O2SAT 98
[2023-12-19 09:07] VITALS: BP 148/95; PULSE 87; RESP 18; TEMP 36.8; O2SAT 99
--- NOTE | 2023-12-19 09:10 | PHA.MEDREC ---
Pharmacy Consult ? Medication Reconciliation Pharmacy has completed the medication reconciliation.NO CHANGES SINCE LAST ADMISSION, PATIENT RECENTLY DISCHARGED ON 12/16. PATIENT TAKES 1/2 TAB OF METOPROLOL 100 MG DAILY. PATIENT HAS NOT STARTED WEGOVY
[2023-12-19] MEDS: Ketorolac Tromethamine 30 MG/ML VIAL IVPUSH ×2 (09:19→14:24)
--- NOTE | 2023-12-19 09:44 | MHC.CM.PN ---
IMM DELIVERED PT LIVES WITH SPOUSE/CHILDREN. INDEPENDENT WITH MOBILITY. NO SVCES/DME. +HCP PCP DR. Kareem GTZ AT [facility]. DP: HOME, NO SERVICES IS THE GOAL. SPOUSE WILL TRANSPORT HOME. CM WILL CONTINUE TO FOLLOW FOR ANY CHANGE TO DC PLAN/NEEDS.
--- NOTE | 2023-12-19 11:53 | PM.EVENT ---
Event Note Date of Service: 12/19/23 Event Note: This patient is seen and examined : pain seems similar left sided flank pain , no fevers Physical exam and assessment and plan coordinated in h&P note, Agree with the plan in addition: left side flank pain/acute pyelonephritis with left hydronephrosis: Patient will be going for urological procedure Continuing IV antibiotics and iv pain medications Time Spent With Patient Time: Total time managing care of this patient today ____ minutes.
[2023-12-19 15:59] VITALS: BP 123/79; PULSE 88; RESP 18; TEMP 36.4; O2SAT 98
[2023-12-19 19:43] VITALS: BP 134/78; PULSE 90; RESP 16; TEMP 37.6; O2SAT 97
[2023-12-19] MEDS: 0.9 % Sodium Chloride Flush 3 ML SYRINGE IVFLUSH (20:13)
[2023-12-20 02:49] VITALS: BP 144/84; PULSE 93; RESP 14; TEMP 36.6; O2SAT 99
[2023-12-20] MEDS: Omeprazole 20 MG CAPSULE.DR PO (05:54)
[2023-12-20] MEDS: HYDROmorphone HCl 1 MG/ML SYRINGE IVPUSH (07:21)
[2023-12-20 07:41] VITALS: BP 128/86; PULSE 85; RESP 18; TEMP 36.9; O2SAT 97
[2023-12-20] MEDS: dilTIAZem HCL CD 300 MG CAP.ER.24H PO (07:51)
[2023-12-20] MEDS: Loratadine 10 MG TABLET PO (07:52)
[2023-12-20] MEDS: PARoxetine HCL 10 MG TABLET PO (07:52)
[2023-12-20] MEDS: Multivitamin TABLET 1 TAB PO (07:52)
[2023-12-20] MEDS: Metoprolol Succinate ER 50 MG TAB.ER.24H PO (07:52)
[2023-12-20] MEDS: Lactated Ringers 1,000 ML 100 ML IVCONT (07:52)
[2023-12-20] MEDS: Phenazopyridine HCL 100 MG TABLET PO ×2 (08:37→17:26)
--- NOTE | 2023-12-20 13:28 | P.PNIM_ITS ---
Subjective Subjective Date of Service: 12/20/23 Interval History: uti/left side hydronephrosis Review of Systems seems abd pain somewhat improving no fever or nausea Physical Exam 2 Vital Signs: Vital Signs: Last Vital Signs Temp 98.5 F 12/20/23 07:41 Pulse 85 12/20/23 07:41 Resp 18 12/20/23 07:41 BP 128/86 12/20/23 07:41 Pulse Ox 97 12/20/23 07:41 O2 Del Method Room Air 12/20/23 07:41 BMI result Body Mass Index 36.0 Appearance: Alert.? Oriented X3. cvs: rrr, [id number] . res: clear to auscultation ,no rhonchii or wheezing abd: no rebound or guarding ,nt, bs present. Gu -has left cva tenderness . ext pulses present , no cyanosis. neuro: axo3 , nonfocal. Objective Data Active Medications Acetaminophen (Acetaminophen 325 Mg Tablet) 975 mg PO Q6H PRN PRN Reason: Pain, Mild (Pain Scale 1-3), fever or headache Last Admin: 12/19/23 22:35 Dose: 975 mg Documented By: CLAU Ceftriaxone Sodium (Ceftriaxone Sodium 1 Gm Vial) 1 gm IVPUSH Q24H [facility] Last Admin: 12/19/23 20:13 Dose: 1 gm Documented By: CLAU Cyclobenzaprine HCl (Cyclobenzaprine Hcl 10 Mg Tablet) 10 mg PO TID PRN PRN Reason: Muscle Pain Diltiazem HCl (Diltiazem Hcl Cd 300 Mg Cap.Er.24h) 300 mg PO DAILY [facility]; Protocol Last Admin: 12/20/23 07:51 Dose: 300 mg Documented By: KIMBER Hydromorphone HCl (Hydromorphone Hcl 1 Mg/Ml Syringe) 1 mg IVPUSH Q3H PRN; Protocol PRN Reason: Pain, Severe (Pain Scale 7-10) Last Admin: 12/20/23 07:21 Dose: 1 mg Documented By: KIMBER Loratadine (Loratadine 10 Mg Tablet) 10 mg PO DAILY [facility] Last Admin: 12/20/23 07:52 Dose: 10 mg Documented By: KIMBER Metoprolol Succinate (Metoprolol Succinate Er 50 Mg Tab.Er.24h) 50 mg PO DAILY [facility]; Protocol Last Admin: 12/20/23 07:52 Dose: 50 mg Documented By: KIMBER Multivitamins/Vitamin C (Multivitamin Tablet) 1 tab PO DAILY [facility] Last Admin: 12/20/23 07:52 Dose: 1 tab Documented By: KIMBER Omeprazole (Omeprazole 20 Mg Capsule.) 20 mg PO DAILY@0630 [facility] Last Admin: 12/20/23 05:54 Dose: 20 mg Documented By: CLAU Paroxetine HCl (Paroxetine Hcl 10 Mg Tablet) 10 mg PO DAILY [facility] Last Admin: 12/20/23 07:52 Dose: 10 mg Documented By: KIMBER Phenazopyridine HCl (Phenazopyridine Hcl 100 Mg Tablet) 100 mg PO BIDWM [facility] Stop: 12/21/23 17:01 Last Admin: 12/20/23 08:37 Dose: 100 mg Documented By: KIMBER Sodium Chloride (0.9 % Sodium Chloride Flush 3 Ml Syringe) 3 ml IVFLUSH QSHIFT [facility] Last Admin: 12/20/23 07:25 Dose: Not Given Documented By: KIMBER Non-Admin Reason: IV Running Labs 12/18/23 20:53 12/19/23 04:42 Microbiology Microbiology Results: Microbiology 12/18/23 21:11 Urine Culture - Final Urine clean catch No growth. 12/19/23 04:42 Blood Culture - Preliminary Blood - Venous No growth after 24 hours. 12/19/23 04:42 Blood Culture - Preliminary Blood - Venous No growth after 24 hours. Assessment and Plan (1) Hydronephrosis, left: Status: Acute (2) Pyelonephritis: Status: Acute Assessment and Plan: 48 y/o woman admitted with: Left flank pain likely secondary to acute pyelonephritis and left hydronephrosis, recent placement of stent to the left ureter. continue IV fluids. Continue pain control with Toradol and Dilaudid IV. Start empiric IV antibiotic therapy with ceftriaxone. To obtain urine and blood cultures. Urology consult. Essential hypertension. Continue metoprolol, diltiazem and lisinopril. Obesity, class 2. BMI 36.0 kg/m2. Weight loss. On Wegovy. Depression. Continue paroxetine. GERD. Continue omeprazole. DVT prophylaxis: SCDs, early ambulation. Patient will need hospitalization for at least 2 midnights for acute pyelonephritis in the setting of recent ureteral stent placement treatment with IV antibiotic therapy, IV fluids and IV pain management. Quality Stroke Does the patient have a stroke diagnosis?: No VTE Prior VTE?: No VTE Risk Level:: Medical - moderate - high VTE Device Contraindication: N/A - Device Ordered VTE Drug Contraindication: Treatment Not Indicated
[2023-12-20] MEDS: Acetaminophen 325 MG TABLET 975 MG PO ×2 (13:58→22:41)
[2023-12-20 15:09] VITALS: BP 142/93; PULSE 84; RESP 18; TEMP 36.9; O2SAT 97
--- NOTE | 2023-12-20 15:30 | MHC.CM.PN ---
EMR reviewed and per MD rounds, pt is not medically cleared for discharge due to management of pyelonephritis and left hydronephrosis with blood cultures pending.
[2023-12-20] MEDS: 0.9 % Sodium Chloride Flush 3 ML SYRINGE IVFLUSH ×2 (17:27→22:45)
[2023-12-20] MEDS: Butalb/Acetamin/Caff 50/325/40 TABLET 1 TAB PO (18:20)
[2023-12-20 19:23] VITALS: BP 129/82; PULSE 83; RESP 16; TEMP 36.7; O2SAT 98
[2023-12-20] MEDS: Cyclobenzaprine HCl 10 MG TABLET PO (22:43)
[2023-12-20] MEDS: cefTRIAXone sodium 1 GM VIAL IVPUSH (22:44)
[2023-12-21 03:40] VITALS: BP 161/92; PULSE 73; RESP 16; TEMP 36.6; O2SAT 97
[2023-12-21] MEDS: Omeprazole 20 MG CAPSULE.DR PO (06:11)
[2023-12-21 07:34] VITALS: BP 136/80; PULSE 76; RESP 18; TEMP 36.1; O2SAT 96
[2023-12-21 08:34] VITALS: BP 136/80; PULSE 76
[2023-12-21] MEDS: Metoprolol Succinate ER 50 MG TAB.ER.24H PO (08:34)
[2023-12-21] MEDS: Loratadine 10 MG TABLET PO (08:34)
[2023-12-21 08:35] VITALS: BP 136/80; PULSE 76
[2023-12-21] MEDS: Phenazopyridine HCL 100 MG TABLET PO ×2 (08:35→18:13)
[2023-12-21] MEDS: dilTIAZem HCL CD 300 MG CAP.ER.24H PO (08:35)
[2023-12-21] MEDS: Acetaminophen 325 MG TABLET 975 MG PO ×2 (08:35→15:02)
[2023-12-21] MEDS: PARoxetine HCL 10 MG TABLET PO (08:36)
[2023-12-21] MEDS: Multivitamin TABLET 1 TAB PO (08:36)
[2023-12-21] MEDS: HYDROmorphone HCl 1 MG/ML SYRINGE IVPUSH ×2 (08:36→15:02)
[2023-12-21] MEDS: 0.9 % Sodium Chloride Flush 3 ML SYRINGE IVFLUSH (08:37)
--- NOTE | 2023-12-21 12:30 | P.PNIM_ITS ---
Subjective Subjective Date of Service: 12/21/23 Interval History: pyelonephritis Review of Systems no fever abd pain improving Physical Exam 2 Vital Signs: Vital Signs: Last Vital Signs Temp 97.0 F 12/21/23 07:34 Pulse 76 12/21/23 08:35 Resp 18 12/21/23 07:34 BP 136/80 12/21/23 08:35 Pulse Ox 96 12/21/23 07:34 O2 Del Method Room Air 12/21/23 07:34 BMI result Body Mass Index 36.0 Appearance: Alert.? Oriented X3. cvs: rrr, [id number] . res: clear to auscultation ,no rhonchii or wheezing abd: no rebound or guarding ,nt, bs present. Gu -has left cva tenderness . ext pulses present , no cyanosis. neuro: axo3 , nonfocal. Objective Data Active Medications Acetaminophen (Acetaminophen 325 Mg Tablet) 975 mg PO Q6H PRN PRN Reason: Pain, Mild (Pain Scale 1-3), fever or headache Last Admin: 12/21/23 08:35 Dose: 975 mg Documented By: LIZETT Ceftriaxone Sodium (Ceftriaxone Sodium 1 Gm Vial) 1 gm IVPUSH Q24H [facility] Last Admin: 12/20/23 22:44 Dose: 1 gm Documented By: CHEL Cyclobenzaprine HCl (Cyclobenzaprine Hcl 10 Mg Tablet) 10 mg PO TID PRN PRN Reason: Muscle Pain Last Admin: 12/20/23 22:43 Dose: 10 mg Documented By: CHEL Diltiazem HCl (Diltiazem Hcl Cd 300 Mg Cap.Er.24h) 300 mg PO DAILY [facility]; Protocol Last Admin: 12/21/23 08:35 Dose: 300 mg Documented By: LIZETT Hydromorphone HCl (Hydromorphone Hcl 1 Mg/Ml Syringe) 1 mg IVPUSH Q3H PRN; Protocol PRN Reason: Pain, Severe (Pain Scale 7-10) Last Admin: 12/21/23 08:36 Dose: 1 mg Documented By: LIZETT Loratadine (Loratadine 10 Mg Tablet) 10 mg PO DAILY [facility] Last Admin: 12/21/23 08:34 Dose: 10 mg Documented By: LIZETT Metoprolol Succinate (Metoprolol Succinate Er 50 Mg Tab.Er.24h) 50 mg PO DAILY [facility]; Protocol Last Admin: 12/21/23 08:34 Dose: 50 mg Documented By: LIZETT Multivitamins/Vitamin C (Multivitamin Tablet) 1 tab PO DAILY [facility] Last Admin: 12/21/23 08:36 Dose: 1 tab Documented By: LIZETT Omeprazole (Omeprazole 20 Mg Capsule.Dr) 20 mg PO DAILY@0630 [facility] Last Admin: 12/21/23 06:11 Dose: 20 mg Documented By: CHEL Paroxetine HCl (Paroxetine Hcl 10 Mg Tablet) 10 mg PO DAILY [facility] Last Admin: 12/21/23 08:36 Dose: 10 mg Documented By: LIZETT Phenazopyridine HCl (Phenazopyridine Hcl 100 Mg Tablet) 100 mg PO BIDWM [facility] Stop: 12/21/23 17:01 Last Admin: 12/21/23 08:35 Dose: 100 mg Documented By: LIZETT Sodium Chloride (0.9 % Sodium Chloride Flush 3 Ml Syringe) 3 ml IVFLUSH QSHIFT [facility] Last Admin: 12/21/23 08:37 Dose: 3 ml Documented By: LIZETT Labs 12/18/23 20:53 12/19/23 04:42 Microbiology Microbiology Results: Microbiology 12/19/23 04:42 Blood Culture - Preliminary Blood - Venous No growth after 48 hours. 12/19/23 04:42 Blood Culture - Preliminary Blood - Venous No growth after 48 hours. 12/18/23 21:11 Urine Culture - Final Urine clean catch No growth. Assessment and Plan (1) Hydronephrosis, left: Status: Acute (2) Pyelonephritis: Status: Acute Assessment and Plan: 48 y/o woman admitted with: Left flank pain likely secondary to acute pyelonephritis and left hydronephrosis, recent placement of stent to the left ureter. continue IV fluids. Continue pain control with Toradol and Dilaudid IV. Start empiric IV antibiotic therapy with ceftriaxone. To obtain urine and blood cultures. Urology consult. Essential hypertension. Continue metoprolol, diltiazem and lisinopril. Obesity, class 2. BMI 36.0 kg/m2. Weight loss. On Wegovy. Depression. Continue paroxetine. GERD. Continue omeprazole. DVT prophylaxis: SCDs, early ambulation. ongoing need hospitalization for acute pyelonephritis in the setting of recent ureteral stent placement treatment with IV antibiotic therapy, IV fluids and IV pain management. Quality Stroke Does the patient have a stroke diagnosis?: No VTE Prior VTE?: No VTE Risk Level:: Medical - moderate - high VTE Device Contraindication: N/A - Device Ordered VTE Drug Contraindication: Treatment Not Indicated
[2023-12-21 15:40] VITALS: BP 132/81; PULSE 74; RESP 18; TEMP 36.1; O2SAT 97
[2023-12-21 19:52] VITALS: BP 131/70; PULSE 68; RESP 18; TEMP 36.2; O2SAT 99
[2023-12-21] MEDS: Cyclobenzaprine HCl 10 MG TABLET PO (21:25)
[2023-12-21] MEDS: cefTRIAXone sodium 1 GM VIAL IVPUSH (21:33)
[2023-12-21] MEDS: Ibuprofen 600 MG TABLET PO (21:52)
[2023-12-22 03:55] VITALS: BP 133/83; PULSE 68; RESP 16; TEMP 36.2; O2SAT 98
[2023-12-22] MEDS: Omeprazole 20 MG CAPSULE.DR PO (05:58)
[2023-12-22 08:12] VITALS: BP 119/83; PULSE 76; RESP 18; TEMP 36.3; O2SAT 98
[2023-12-22 08:19] VITALS: BP 119/83
[2023-12-22] MEDS: Metoprolol Succinate ER 50 MG TAB.ER.24H PO (08:19)
[2023-12-22] MEDS: dilTIAZem HCL CD 300 MG CAP.ER.24H PO (08:19)
[2023-12-22] MEDS: PARoxetine HCL 10 MG TABLET PO (08:19)
[2023-12-22] MEDS: Multivitamin TABLET 1 TAB PO (08:19)
[2023-12-22] MEDS: Loratadine 10 MG TABLET PO (08:19)
[2023-12-22] MEDS: 0.9 % Sodium Chloride Flush 3 ML SYRINGE IVFLUSH (08:19)
[2023-12-22 09:31] LABS: Anion Gap 15 (12-20); Blood Urea Nitrogen 12 mg/dL (9-16); Calcium 9.8 mg/dL (8.4-10.2); Carbon Dioxide 27 mmol/L (22-29); Chloride 102 mmol/L (96-108); Creatinine Clr Calc Pharmacy 93.8; Estimated Glomerular Filt Rate > 60; Glucose Random 115 mg/dL (60-115); Potassium 3.8 mmol/L (3.3-5.1); Sodium 140 mmol/L (135-145)
--- NOTE | 2023-12-22 09:39 | P.CNUR_ITS ---
History of Present Illness Consult details Consult date: 12/21/23 Narrative: CC: Pyelonephritis 48-year-old female Underwent cystoscopy with stent placement proximally 3 days ago Persistent urinary tract infection Present with pain starting in the left side intensity 11/27 Did not report fever, hematuria or dysuria CT scan performed - shows some distal migration of ureteric stent. Coiled at upper part of UPJ and this may be causing pain WBC normal Plan stent removal next week in office Review of Systems 2 Constitutional: Constitutional: Reports as per HPI and Reports no additional constitutional complaints Cardiovascular: Cardiovascular: Reports as per HPI and Reports no additional cardiovascular complaints Respiratory: Respiratory: Reports as per HPI and Reports no additional respiratory complaints Gastrointestinal: Gastrointestinal: Reports as per HPI and Reports no additional gastrointestinal complaints Genitourinary: Genitourinary: Reports as per HPI Musculoskeletal: Musculoskeletal: Reports no additional musculoskeletal complaints and Reports as per HPI Neurologic: Reports system reviewed and no additional complaints, except as documented and Reports as per HPI PMFSH Past Medical History Medical History (Updated 12/19/23 @ 03:37 by Tim Taylor MD) SVT (supraventricular tachycardia) HTN (hypertension) Surgical History Surgical History (Updated 12/16/23 @ 14:41 by Natalya Palacios RN) Hx of cystoscopy Social History Social History Household Members: Spouse Housing: Apartment Are you a primary progressive care manager to a significant other at home: No Do you presently have visiting nurse or other home services: No Alcohol intake: never Patient Tobacco Use Status: Former Tobacco user Tobacco use type: Cigarette Years Smoked: 11 Second Hand Smoke Exposure: No service: No Current occupational status: unemployed 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 Meds Allergies Allergy/AdvReac Type Severity Reaction Status Date / Time morphine [MORPHINE] Allergy Intermediate PAPLITATIONS, Verified 12/18/23 20:45 increased heart rate Active Medications: Current Medications Acetaminophen (Acetaminophen 325 Mg Tablet) 975 mg PO Q6H PRN PRN Reason: Pain, Mild (Pain Scale 1-3), fever or headache Last Admin: 12/21/23 15:02 Dose: 975 mg Ceftriaxone Sodium (Ceftriaxone Sodium 1 Gm Vial) 1 gm IVPUSH Q24H [facility] Last Admin: 12/21/23 21:33 Dose: 1 gm Cyclobenzaprine HCl (Cyclobenzaprine Hcl 10 Mg Tablet) 10 mg PO TID PRN PRN Reason: Muscle Pain Last Admin: 12/21/23 21:25 Dose: 10 mg Diltiazem HCl (Diltiazem Hcl Cd 300 Mg Cap.Er.24h) 300 mg PO DAILY [facility]; Protocol Last Admin: 12/22/23 08:19 Dose: 300 mg Hydromorphone HCl (Hydromorphone Hcl 1 Mg/Ml Syringe) 1 mg IVPUSH Q3H PRN; Protocol PRN Reason: Pain, Severe (Pain Scale 7-10) Last Admin: 12/21/23 15:02 Dose: 1 mg Loratadine (Loratadine 10 Mg Tablet) 10 mg PO DAILY [facility] Last Admin: 12/22/23 08:19 Dose: 10 mg Metoprolol Succinate (Metoprolol Succinate Er 50 Mg Tab.Er.24h) 50 mg PO DAILY [facility]; Protocol Last Admin: 12/22/23 08:19 Dose: 50 mg Multivitamins/Vitamin C (Multivitamin Tablet) 1 tab PO DAILY [facility] Last Admin: 12/22/23 08:19 Dose: 1 tab Omeprazole (Omeprazole 20 Mg Capsule.Dr) 20 mg PO DAILY@0630 [facility] Last Admin: 12/22/23 05:58 Dose: 20 mg Paroxetine HCl (Paroxetine Hcl 10 Mg Tablet) 10 mg PO DAILY [facility] Last Admin: 12/22/23 08:19 Dose: 10 mg Sodium Chloride (0.9 % Sodium Chloride Flush 3 Ml Syringe) 3 ml IVFLUSH [facility] Last Admin: 12/22/23 08:19 Dose: 3 ml Home Medications ?Medication ?Instructions ?Recorded ?Confirmed ?Last Taken ?Type diltiazem HCl 300 mg 300 mg PO DAILY 07/16/22 12/19/23 12/14/23 History capsule,extended release 24 hr lisinopril 40 mg tablet 40 mg PO DAILY 07/16/22 12/19/23 12/14/23 History omeprazole 20 mg capsule,delayed 20 mg PO DAILY@0630 07/16/22 12/19/23 12/14/23 History release cyclobenzaprine 10 mg tablet 10 mg PO TID PRN Muscle Pain 12/15/23 12/19/23 Unknown History fexofenadine 180 mg tablet 180 mg PO DAILY 12/15/23 12/19/2324 History metoprolol succinate 100 mg 50 mg PO DAILY 12/15/23 12/19/23 12/14/23 History tablet,extended release 24 hr paroxetine HCl 10 mg tablet 10 mg PO DAILY 12/15/23 12/19/23 12/14/23 History vitamin B complex 1 cap PO DAILY 12/15/23 12/19/23 12/14/23 History semaglutide (weight loss) 0.25 0.25 mg subcut QWEEK 12/19/23 12/19/23 Unknown History mg/0.5 mL subcutaneous pen injector (Carol) Physical Exam 2 Vital Signs: Vital Signs: Last Vital Signs Temp 97.3 F 12/22/23 08:12 Pulse 76 12/22/23 08:12 Resp 18 12/22/23 08:12 BP 119/83 12/22/23 08:19 Pulse Ox 98 12/22/23 08:12 O2 Del Method Room Air 12/22/23 08:12 BMI result Body Mass Index 36.0 Const: General: cooperative, healthy appearing, comfortable and no acute distress Orientation/consciousness: patient oriented x3 HEENT: Face and sinus: Yes normal facial exam Mouth: moist mucous membranes Neck: Neck: Yes normal visual inspection, Yes full ROM and Yes trachea midline Chest: Chest palpation & inspection: normal inspection of the chest Resp: Effort & Inspection: normal respiratory effort, able to speak in complete sentences and no respiratory distress GI: Inspection: Yes normal to inspection Back/Spine/Pelvis: Cervical Spine: normal cervical lordosis Thoracic/Lumbar Spine: thoracic and lumbar spine normal to inspection Skin: General skin exam: no rashes or lesions noted Neuro: General: patient oriented x3, tone normal and moves all extremities Extrem: General: Yes normal to inspection and Yes capillary refill normal Results Labs 12/18/23 20:53 12/22/23 08:59 Labs: BMP 12/22/23 08:59 Sodium 140 Potassium 3.8 Chloride 102 Carbon Dioxide 27 BUN 12 Creatinine 0.77 Calcium 9.8 D Urine 12/18/23 Range/Units 21:11 Urine Color Yellow Urine Appearance Clear Urine pH 6.5 (5.0-9.0) Ur Specific [place] 1.015 (1.005-1.025) Urine Protein 100 (2+) H (Neg-Trace) mg/dL Urine Glucose (UA) Negative (Negative) mg/dL Urine Test NEGATIVE (NEGATIVE) All other labs normal. Assessment and Plan (1) Hydronephrosis with ureteral calculus: Status: Acute Plan Follow-up next week for stent removal in office Procedures Date of Service Date of Service: 12/22/23
[2023-12-22] MEDS: HYDROmorphone HCl 1 MG/ML SYRINGE IVPUSH (10:15)
--- NOTE | 2023-12-22 10:30 | P.DS_ITS ---
DS: Providers Provider Date of Service: 12/22/23 Date of admission: 12/19/23 03:12 Date of discharge: 12/22/23 Primary care physician: Alex Sheriff MD Consults: 12/19/23 03:15 Consult to Urology Routine Consulting Provider: [facility] Reason for consultation: Pyelonephritis, recent ureteral stent placement Has provider been notified: No Attending physician on discharge: Rossana Ashford Discharging clinician: Rossana Ashford DS: Diagnosis Discharge Diagnosis (1) Hydronephrosis with ureteral calculus: Status: Acute DS: Summary Hospital Course Hospital Course: Hpi: 48 years old woman with past medical history significant for GERD, essential hypertension, nephrolithiasis and recent left ureteral stent placement presents to the emergency department complaining of left flank pain that started yesterday. She described the pain as a squeezing radiating to the pelvic area with an intensity of 10/10. She denied any associated nausea, vomiting, diarrhea or constipation. She did not reported suggestive fever, blood in urine and pain with urination. She was recently hospitalized with sepsis secondary to pyelonephritis with left distal ureteral calculus and a coli bacteremia. A left ureteral stent was placed by Dr. Yin. She was discharged to take a course of Ceftin. She did not report any symptoms such as headache, dizziness, chest pain, shortness of breath or palpitations. In the ED, she was found to have stable vital signs. Blood workup showed no leukocytosis or lactic acidosis. Hemoglobin and platelets are normal. Urinalysis consistent with UTI and hematuria. Abdominal pelvis CT scan with IV contrast showed left ureterovesicular stent with moderate left hydronephrosis and ureterectasis and mild left perinephric inflammatory changes and delayed nephrographic enhancement without perinephric fluid collections. It also showed diverticulosis without evidence of diverticulitis. ED tx: Dilaudid 1 g IV, acetaminophen 975 mg PO, ketorolac 1 g mg IV, ceftriaxone 1 g IV. Hospital course: Patient was admitted to the hospital because left flank pain-found to have acute pyelonephritis and left hydronephrosis after s/p sent on 01/15: started on iv antibiotics -urine culture and blood cultures sent, ct abd: Interval placement of a left ureterovesicular catheter. The proximal terminus of the catheter terminates within the proximal left ureter. Moderate left hydronephrosis and ureterectasis is present and is similar in degree to findings present 2023. No urolithiasis identified. Mild left perinephric inflammatory changes and delayed nephrographic enhancement. No left-sided perinephric fluid collections.patient urine and blood culture negative but has been discharged on 12/17/23 for pyelonephritis with left distal ureteral calculus and E coli bacteremia. seen by urology-recomended continue ceftin upon discharge . plan: complete ceftin course-she says she has antibiotics at home given on discharge at 12/17/23) follow up with urology outpatient. Assessment and plan coordination time spent 40 minute, above management discus sed with the patient detail length she understand and in agreement with the plan. Time Attestation Total time managing care of this patient today: 40 mintues. Discharge Coordination Time (in mins): 40 min Quality: Safe Use of Opioids Does Pt have an Active Cancer Diagnosis on the Problem List?: No Quality: Stroke Does the patient have a stroke diagnosis?: No Physical Exam Vital Signs: Vital Signs: Last Vital Signs Temp 97.3 F 12/22/23 08:12 Pulse 76 12/22/23 08:12 Resp 18 12/22/23 08:12 BP 119/83 12/22/23 08:19 Pulse Ox 98 12/22/23 08:12 O2 Del Method Room Air 12/22/23 08:12 BMI result Body Mass Index 36.0 Appearance: Alert.? Oriented X3. cvs: rrr, [id number] . res: clear to auscultation ,no rhonchii or wheezing abd: no rebound or guarding ,nt, bs present. Gu -has left cva tenderness . ext pulses present , no cyanosis. neuro: axo3 , nonfocal. DS: Data Data Completed and Pending Completed studies during hospitalization [Text1]: Procedures Dilation of Right Ureter with Intraluminal Device, Via Natural or Artificial Opening Endoscopic (07/16/22) Excision of Bladder, Via Natural or Artificial Opening Endoscopic, Diagnostic (07/16/22) Fluoroscopy of Right Kidney, Ureter and Bladder using Low Osmolar Contrast (07/16/22) Labs on day of discharge: Laboratory Results - last 24 hr 12/22/23 08:59 Sodium 140 Potassium 3.8 Chloride 102 Carbon Dioxide 27 Anion Gap 15 BUN 12 Creatinine 0.77 Estim Creat Clear Calc 93.8 Estimated GFR > 60 Random Glucose 115 Calcium 9.8 D Preliminary micro results at discharge 12/19/23 04:42 Blood Culture - Preliminary Blood - Venous No growth after 48 hours. 12/19/23 04:42 Blood Culture - Preliminary Blood - Venous No growth after 48 hours. Imaging Chest x-ray: Radiologist's impression: ITS Impressions Abdomen/Pelvis CT 12/18/23 22:30 IMPRESSION: *Interval placement of a left ureterovesicular catheter. The proximal terminus of the catheter terminates within the proximal left ureter. Moderate left hydronephrosis and ureterectasis is present and is similar in degree to findings present 12/15/2023. No urolithiasis identified. Mild left perinephric inflammatory changes and delayed nephrographic enhancement. No left-sided perinephric fluid collections. *Marked colonic diverticulosis. No evidence of acute diverticulitis. Electronically signed by: Nathan Nair MD 12/19/2023 01:01 AM EDT RP Discharge Plan Discharge Anticipated Discharge Date/Time: 12/22/23 10:28 Patient Disposition: Home, Self-Care Discharge Diagnosis: uti ,left hydronephrosis Referrals: Alex Sheriff MD [Primary Care Provider] - 1 Week Discharge Medications: Continued cyclobenzaprine 10 mg tablet 10 mg PO TID PRN (Reason: Muscle Pain) metoprolol succinate 100 mg tablet extended release 24 hr 50 mg PO DAILY fexofenadine 180 mg tablet 180 mg PO DAILY vitamin B complex Capsule 1 cap PO DAILY paroxetine HCl 10 mg tablet 10 mg PO DAILY cefuroxime axetil 500 mg tablet 500 mg PO BID Qty: 20 0RF omeprazole 20 mg Capsule,Delayed Release(Dr/Ec) 20 mg PO DAILY@0630 lisinopril 40 mg Tablet 40 mg PO DAILY diltiazem HCl 300 mg Capsule,Extended Release 24hr 300 mg PO DAILY Wegovy 0.25 mg/0.5 mL pen injector 0.25 mg subcut QWEEK Rx Instructions: HAS NOT STARTED YET Discharge Orders: Discharge Order (Routine); Ordered 12/22/23 Ordered By: Rossana Ashford Diet: Advance to usual diet Activity on Discharge: As tolerated Stand Alone Forms: Patient Portal Discharge page Print Language: Sudanese Care Plan Goals: Patient was admitted to the hospital because left flank pain-found to have acute pyelonephritis and left hydronephrosis after s/p sent on 01/15: started on iv antibiotics -urine culture and blood cultures sent, ct abd: Interval placement of a left ureterovesicular catheter. The proximal terminus of the catheter terminates within the proximal left ureter. Moderate left hydronephrosis and ureterectasis is present and is similar in degree to findings present 12/15/2023. No urolithiasis identified. Mild left perinephric inflammatory changes and delayed nephrographic enhancement. No left-sided perinephric fluid collections.patient urine and blood culture negative but has been discharged on 12/17/23 for pyelonephritis with left distal ureteral calculus and E coli bacteremia. seen by urology-recomended continue ceftin upon discharge . Health Concerns: as above. Plan of Treatment: as above. Assessment: as above.
[2023-12-22] MEDS: cefuroxime axetiL 500 MG TABLET PO (11:27)
== END 2023-12-22 11:50 | disposition home or self-care (01) | DRG 690 ==
LOC: HO.ED 12-19 02:05 → HO.EDOVER 12-19 03:18 → HO.S3 12-19 07:15
PROVIDERS: Admitting Provider Internal Medicine; Emergency Provider Student in an Organized Health Care Education/Training Program; PCP Internal Medicine; Visit Provider Internal Medicine
DX: N13.6 Pyonephrosis (principal); E66.812 Obesity, class 2; Z68.36 Body mass index [BMI] 36.0-36.9, adult; F32.A Depression, unspecified; G89.18 Other acute postprocedural pain; Z71.3 Dietary counseling and surveillance; K21.9 Gastro-esophageal reflux disease without esophagitis; I10 Essential (primary) hypertension; R31.9 Hematuria, unspecified; Z87.891 Personal history of nicotine dependence; Z79.899 Other long term (current) drug therapy
CPT/HCPCS: 36415; 74177; 80048; 80053; 81001; 81025; 83605; 83690; 85025; 87040; 87086; 99285; J0696; J1171; J1885; J7120; Q9967

== ENCOUNTER → 2023-12-19 03:12 | Outpatient (BNV) | payer OTHER, SELFPAY | PROVIDERS: Admitting Provider Internal Medicine; Emergency Provider Student in an Organized Health Care Education/Training Program; PCP Internal Medicine; Visit Provider Urology | DX: N13.2 Hydronephrosis with renal and ureteral calculous obstruction (principal) | CPT/HCPCS: 99222 ==

== ENCOUNTER → 2023-12-19 03:12 | Outpatient (BNV) | payer OTHER, SELFPAY | PROVIDERS: Admitting Provider Internal Medicine; Emergency Provider Student in an Organized Health Care Education/Training Program; Visit Provider Internal Medicine | DX: N13.2 Hydronephrosis with renal and ureteral calculous obstruction (principal) | CPT/HCPCS: 99223; 99231; 99232; 99239; 99499 ==

== ENCOUNTER 2024-01-02 13:30 | Outpatient (AMB) | payer OTHER, SELFPAY ==
--- NOTE | 2024-01-02 13:32 | MHC.OFFVIS ---
Intake Visit Reasons: Stent removal Intake Note: Patient is present for STENT REMOVAL Urology Medication:VITAMIN B1 Antibiotic Allergy:NONE Blood Thinner:NONE Quarter Inspector Required: No Allergies morphine [MORPHINE] Allergy (Intermediate, Verified 01/02/24 13:32) PAPLITATIONS, increased heart rate Medication List - Last Reconciled 01/02/24 by Filiberto Yin MD cefuroxime axetil 500 mg PO BID cyclobenzaprine 10 mg PO TID PRN diltiazem HCl CD 300 mg PO DAILY fexofenadine 180 mg PO DAILY lisinopril 40 mg PO DAILY metoprolol succinate ER 50 mg PO DAILY omeprazole 20 mg PO DAILY@0630 paroxetine HCl 10 mg PO DAILY semaglutide (weight loss) (Wegovy) 0.25 mg subcut QWEEK vitamin B complex 1 cap PO DAILY HPI Comments Details: Tank is a pleasant female. She is a patient of . She is seen for the following urologic conditions - nephrolithiasis Here for cystoscopy stent removal Follow-up 2 months with renal ultrasound and 24 hour urine collection Recurrent nephrolithiasis 12/11 - left distal stone with laser lithotripsy presentation through emergency room - Stone composition - Calcium Oxalate Dihydrate (Weddellite) 20%Calcium Oxalate Monohydrate (Whewellite) 60%Carbonate Apatite (Dahllite) 20% 08/23/22-- The patient is s/p cystoscopy, right ureteroscopy, laser lithotripsy, ureteral stone and stent exchange on 08/07/22 for right ureteral stone. The patient was initially evaluated in the hospital on 07/16/22 and right ureteral was placed on 07/17/22. CAT scan?07/16/22-- noted obstructing right ureteral stones along with left kidney stone. Evaluation today-- Blood: 200 Tereso/uL, leukocytes: 15 Teodoro/uL. Plan: Interval renal imaging 24 hour fluid collection [facility] Medical History (Updated 12/25/23 @ 00:03 by Sam Parson) Post-op pain SVT (supraventricular tachycardia) HTN (hypertension) Surgical History (Updated 12/16/23 @ 14:41 by Natalya Palacios RN) Hx of cystoscopy Social History Household Members: Spouse Housing: Apartment Are you a primary palliative care nurse practitioner to a significant other at home: No Do you presently have visiting nurse or other home services: No Alcohol intake: never Patient Tobacco Use Status: Former Tobacco user Tobacco use type: Cigarette Years Smoked: 11 Second Hand Smoke Exposure: No service: No Current occupational status: unemployed 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 Review of Systems Const Denies chills and Denies fever(s) Card Reports no additional complaints and Denies syncope Resp Denies cough GI Denies abdominal pain and Denies heartburn Reports as per HPI and Denies change in libido Neuro Denies syncope Psych Denies change in libido Endo Denies change in libido Physical Exam Const General: cooperative, healthy appearing, comfortable and no acute distress Orientation/consciousness: patient oriented x3 HEENT Face and sinus: Yes normal facial exam Mouth: moist mucous membranes Neck Neck: Yes normal visual inspection, Yes full ROM and Yes trachea midline Chest Chest palpation & inspection: normal inspection of the chest Resp Effort & Inspection: normal respiratory effort, able to speak in complete sentences and no respiratory distress GI Inspection: Yes normal to inspection Back/Spine/Pelvis Cervical Spine: normal cervical lordosis Thoracic/Lumbar Spine: thoracic and lumbar spine normal to inspection Skin General skin exam: no rashes or lesions noted Neuro General: patient oriented x3, gait normal, tone normal and moves all extremities Extrem General: Yes normal to inspection and Yes capillary refill normal Office Procedures Cystoscopy Consent Discussed risk and benefit or proposed procedure with the patient. Information consent for procedure given to the patient. Discussed technical aspects, risks, benefits and alternatives in full. Addressed all of the patient's questions and concerns regarding the procedure. The patient demonstrated knowledge and understanding. They wish to proceed with this procedure. Preparation The patient was prepped in the usual manner. A telemetry rn was present and in the room. Genitalia was prepped with betadine solution in a sterile manner. Lidocaine Jelly 2% was placed into the urethra and 16Fr flexible Olympus cystoscope was inserted into the meatus after adequate lubrication. Procedure code (CPT) selection complete Cystoscopy Consent Discussed risk and benefit or proposed procedure with the patient. Information consent for procedure given to the patient. Discussed technical aspects, risks, benefits and alternatives in full. Addressed all of the patient's questions and concerns regarding the procedure. The patient demonstrated knowledge and understanding. They wish to proceed with this procedure. Preparation The patient was prepped in the usual manner. A telemetry rn was present and in the room. Genitalia was prepped with betadine solution in a sterile manner. Lidocaine Jelly 2% was placed into the urethra and 16Fr flexible Olympus cystoscope was inserted into the meatus after adequate lubrication. Procedure A well lubricated 16 Sinhala cystoscope was placed No abnormality noted of urethra during placement Indwelling stent seen within bladder emerging from left ureteric orifices The stent was grasped with a 3 prong grasper and removed without difficulty The [place] the [place] [id number] with stent removal DISPOSABLE SCOPE URO-G FLEXIBLE SCOPE Procedure code (CPT) selection complete Office Meds lidocaine HCl 2 % mucosal jelly in applicator Performing Provider: Filiberto Yin MD [facility] [place] [facility] Administered by: Filiberto Yin MD on 01/02/24 14:12 Dose Route Admin Location Dispensed Lot Number Expiration Date [facility] [employer] Interface Developer 10 mL intra-urethral 10 mL Results AMB Urinalysis, Automated UA Leukoctes 125 Teodoro/uL Last Edit by HERMILO Vidal on 01/02/24 13:43 UA Nitrite Negative Last Edit by HERMILO Vidal on 01/02/24 13:43 UA Urobilinogen 1 mg/dL Last Edit by HERMILO Vidal on 01/02/24 13:43 UA Protein 300 mg/dL Last Edit by HERMILO Vidal on 01/02/24 13:43 UA pH 6.5 Last Edit by HERMILO Vidal on 01/02/24 13:43 UA Blood 200 Tereso/uL Last Edit by HERMILO Vidal on 01/02/24 13:43 UA Specific [place] 1.015 Last Edit by HERMILO Vidal on 01/02/24 13:43 UA Ketone Negative Last Edit by HERMILO Vidal on 01/02/24 13:43 UA Bilirubin 0 mg/dL Last Edit by HERMILO Vidal on 01/02/24 13:43 UA Glucose 0 mg/dL Last Edit by HERMILO Vidal on 01/02/24 13:43 Results Reviewed Results Reviewed: Laboratory Last Values Urine pH (Auto) 6.5 01/02/24 13:43 Specific [place] (Auto) 1.015 01/02/24 13:43 Urine Protein (Auto) 300 mg/dL 01/02/24 13:43 Glucose (UA)(Auto) 0 mg/dL 01/02/24 13:43 Urine Ketones (Auto) Negative 01/02/24 13:43 Urine Blood (Auto) 200 Tereso/uL 01/02/24 13:43 Urine Nitrite (Auto) Negative 01/02/24 13:43 Urine Bilirubin (Auto) 0 mg/dL 01/02/24 13:43 Urine Urobilinogen (Auto) 1 mg/dL 01/02/24 13:43 Leukocyte Esterase (Auto) 125 Teodoro/uL 01/02/24 13:43 Assessment & Plan Assessment & Plan (1) Hydronephrosis, left: Code(s): N13.30 - Unspecified hydronephrosis Category: Medical Plan Two month follow-up renal ultrasound Orders: Orders US renal BI 2 Months N20.1 - Calculus of ureter AMB Urinalysis Automated Today Z13.9 - Encounter for screening, unspecified URORISK Today N20.1 - Calculus of ureter AMB Cystoscopy Today N20.1 - Calculus of ureter Medications: New lidocaine HCl 2% 10 mL intra-urethral ONCE 10 mL 0RF N20.1 - Calculus of ureter Patient Instructions: Imaging studies, laboratory and physical exam results were discussed and reviewed in detail. No major barriers to patient understanding were identified. An opportunity to ask questions regarding the treatment plan was provided. All questions were answered. The patient expressed understanding and agreement with the above treatment plan. The patient is aware they should contact our office by phone for worsening of their current condition or the appearance of new urologic symptoms. Compliance is encouraged with any medications and followup testing that is ordered. It is a privilege to participate in the urologic care of your patient. If you have any questions or concerns regarding treatment for the above conditions, or other urologic issues, please do not hesitate to contact me. The office telephone contact is [phone]. This note is constructed using voice recognition software. While every effort has been made to ensure accuracy metaphysicist errors may have been included. Yours sincerely, Dr Filiberto Yin MD, BR[facility] - Urology Providers of Expert, Compassionate Care for the Genitourinary System Coding Level of Care Code Est Pt Level 3 (75998) Diagnoses Hydronephrosis, left N13.30 CPT Codes Cystoscopy - CPT: 96791-Aklzeyqvil with stent removal ([id number])
== END 2024-01-02 14:09 | disposition home or self-care (01) ==
PROVIDERS: PCP Internal Medicine; Visit Provider Urology
DX: N13.30 Unspecified hydronephrosis (principal); N20.1 Calculus of ureter; Z96.0 Presence of urogenital implants; Z13.9 Encounter for screening, unspecified
CPT/HCPCS: 52310; 99213

== ENCOUNTER → 2024-01-02 13:30 | Outpatient (BNVA) | payer OTHER, SELFPAY | PROVIDERS: PCP Internal Medicine; Visit Provider Urology | DX: N20.1 Calculus of ureter (principal); N13.30 Unspecified hydronephrosis | CPT/HCPCS: 52310; 81003; 99212 ==

== ENCOUNTER 2024-02-21 10:01 | Outpatient (REF) | payer OTHER, SELFPAY ==
--- NOTE | ~2024-02-21 | US_ITS ---
EXAMINATION: US KIDNEY BILATERAL HISTORY: N20.1 - Calculus of ureter TECHNIQUE: Real-time grayscale ultrasound imaging of the kidneys was performed and images were reviewed. COMPARISON: Correlation is made with a CT of the abdomen dated 12/18/2023. FINDINGS: Right kidney: The right kidney measures 12.3 x 5.0 x 5.7 cm. Renal parenchymal echotexture and thickness are normal. There is a 2.3 x 1.4 x 1.9 cm cyst in the interpolar region. A 9 x 5 x 9 mm echogenic focus is noted at the upper pole consistent with an angiomyolipoma. There is a 2 mm nonobstructing calculus in the interpolar region. There is no hydronephrosis. Left Kidney: The left kidney measures 11.2 x 5.3 x 4.2 cm. Renal parenchymal echotexture and thickness are normal. There are no masses. There is a 2 mm nonobstructing calculus in the interpolar region. There is no hydronephrosis. US/US renal BI IMPRESSION: Bilateral nephrolithiasis as described. There is no hydronephrosis. 9 mm right renal angiomyolipoma. Electronically signed by: Jamin العراقي MD 02/24/2024 12:36 PM EST
== END 2024-02-21 10:02 | disposition home or self-care (01) ==
LOC: HO.US 10:01
PROVIDERS: PCP Internal Medicine; Visit Provider Urology
DX: N20.1 Calculus of ureter (principal)
CPT/HCPCS: 76775

== ENCOUNTER → 2024-02-21 10:04 | Outpatient (BNV) | payer OTHER, SELFPAY | PROVIDERS: PCP Internal Medicine; Visit Provider Radiology Diagnostic Radiology | DX: N20.1 Calculus of ureter (principal) | CPT/HCPCS: 76775 ==

== ENCOUNTER 2024-03-02 11:32 | Outpatient (AMB) | payer OTHER, SELFPAY ==
--- NOTE | 2024-03-02 11:54 | A.OFFVIS_ITS ---
Intake Visit Reasons: 2m/US/[facility] Intake Note: Patient is present for 2 month follow up US Urology Med: None Antibiotic Allergy: None Blood Thinner: None Alligator Hunter Required: No Accompanied by: Self / Same As Patient Allergies morphine [MORPHINE] Allergy (Intermediate, Verified 03/02/24 12:04) PAPLITATIONS, increased heart rate HPI Comments Details: 03/02/24--Tank is followed for kidney stones in his here for follow-up. I have reviewed follow-up renal ultrasound 2 mm stone in right kidney, 2 mm stone in left kidney. Subcentermeter echogenic focus may be angiomyolipoma. Hydronephrosis has resolved. The patient completed the 24 hour urine a few days ago results are pending.I have discussed diet modification to decrease risk of forming more kidney stones. I have discussed low oxalate diet and specific foods to avoid including certain green leafy vegetables, chocalate, nuts, tea, beets, rubarb; low sodium, decreased use of animal protein and the importance of hydration drinking up to 2-2.5 liters of fluids and use of adding lemon to water to increase citrate in the diet. A pamphlet is also provided today. 30 minutes spent in review of records pertaining to this visit and including [id number] discussion with the patient and documentation of this visit. Review of chart: 01/02/2024 -Tank is a pleasant female. She is a patient of . She is seen for the following urologic conditions - nephrolithiasis Here for cystoscopy stent removal, Follow-up 2 months with renal ultrasound and 24 hour urine collection Recurrent nephrolithiasis 12/11 - left distal stone with laser lithotripsy presentation through emergency room - Stone composition - Calcium Oxalate Dihydrate (Weddellite) 20%Calcium Oxalate Monohydrate (Whewellite) 60%Carbonate Apatite (Dahllite) 20% 08/23/22-- The patient is s/p cystoscopy, right ureteroscopy, laser lithotripsy, ureteral stone and stent exchange on 08/07/22 for right ureteral stone. The patient was initially evaluated in the hospital on 07/16/22 and right ureteral was placed on 07/17/22. CAT scan?07/16/22-- noted obstructing right ureteral stones along with left kidney stone. Evaluation today-- Blood: 200 Tereso/uL, leukocytes: 15 Teodoro/uL. 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 Review of Systems Const All systems reviewed & are unremarkable except as noted in HPI and below Reports no additional complaints Eyes Reports no additional complaints ENT Reports no additional complaints Card Reports no additional complaints Resp Reports no additional complaints GI Reports no additional complaints Reports as per HPI Musc Reports no additional complaints Skin/Breast Reports system reviewed and no additional complaints, except as documented Neuro Reports no additional complaints Psych Reports no additional complaints Endo Reports no additional complaints Ronni/Lymph Reports no additional complaints Aller/Immun Reports no additional complaints Results Reviewed Results Reviewed: Date of Service: 02/21/24 EXAMINATION: US KIDNEY BILATERAL HISTORY: N20.1 - Calculus of ureter TECHNIQUE: Real-time grayscale ultrasound imaging of the kidneys was performed and images were reviewed. COMPARISON: Correlation is made with a CT of the abdomen dated 12/18/2023. FINDINGS: Right kidney: The right kidney measures 12.3 x 5.0 x 5.7 cm. Renal parenchymal echotexture and thickness are normal. There is a 2.3 x 1.4 x 1.9 cm cyst in the interpolar region. A 9 x 5 x 9 mm echogenic focus is noted at the upper pole consistent with an angiomyolipoma. There is a 2 mm nonobstructing calculus in the interpolar region. There is no hydronephrosis. Left Kidney: The left kidney measures 11.2 x 5.3 x 4.2 cm. Renal parenchymal echotexture and thickness are normal. There are no masses. There is a 2 mm nonobstructing calculus in the interpolar region. There is no hydronephrosis. IMPRESSION: Bilateral nephrolithiasis as described. There is no hydronephrosis. 9 mm right renal angiomyolipoma. Date of Service: 07/16/22 EXAMINATION: CT ABDOMEN AND PELVIS WITHOUT CONTRAST? CLINICAL INFORMATION: Right flank pain, dysuria.? COMPARISON: CT abdomen 04/16/2016 . Ultrasound abdomen 07/25/2021 TECHNIQUE: Multidetector volumetric imaging was performed from the superior aspect of the liver through the pubic symphysis. Sagittal and coronal reformatted images were obtained on the technologist's workstation.? This CT examination was performed using dose optimization techniques as appropriate, variously including the following: *Automated exposure control *Adjustment of mA and/or kV according to patient size (this includes techniques or standardized protocols for targeted exams where dose is matched to indication/reason for exam; i.e. extremities or head) *Use of iterative reconstruction technique DLP: 681 mGy-cm FINDINGS: LUNG BASES: The visualized lung bases are unremarkable.? LIVER, GALLBLADDER, AND BILIARY TREE: The liver is normal in shape, and attenuation. Right lobe spans 19.8 cm craniocaudal. No focal hepatic lesion or biliary ductal dilatation is present. The gallbladder is unremarkable with no evidence of radiopaque gallstones, gallbladder wall thickening, or obvious pericholecystic inflammatory changes.? PANCREAS: Unremarkable.? SPLEEN: Unremarkable.? ADRENAL GLANDS: Unremarkable.? KIDNEYS AND URETERS: Severe right hydroureteronephrosis. There is a 12 mm calculus in the distal right ureter. There are 2 small, 2 mm sized calcifications more distally,, which could represent additional small ureteral calculi versus subjacent calcifications. No renal calculi identified. Mild right perinephric stranding. Left renal calculi. 2 mm nonobstructing calculus upper pole; 10 mm obstructing calculus in the lower pole. BLADDER: Bladder is partially distended. Urinary bladder wall thickening, could be related to lack of distention versus cystitis.? GASTROINTESTINAL TRACT: Nondistended stomach. No small or large bowel obstruction. Colonic diverticulosis without evidence of diverticulitis. Normal appendix. No free fluid. No free air.? ABDOMINAL WALL: No significant hernia is appreciated.? LYMPH NODES: No pathologically enlarged nodes are identified. VASCULAR: Scattered atherosclerotic vascular calcification. PELVIC VISCERA: Anteverted uterus. 3.3 cm left ovarian cyst/prominent follicle. Hounsfield measurements 12. OSSEOUS STRUCTURES: Unremarkable.? IMPRESSION: 1. Severe right hydroureteronephrosis. 12 mm calculus in the distal right ureter. Question additional small calculi versus subjacent calcifications distal to this. 2. Left renal nonobstructing calculi. 3. Urinary bladder wall prominence, could be due to lack of distention versus cystitis. 4. Colonic diverticulosis without diverticulitis. 5. Hepatomegaly. 6. Additional findings and details as above. ? ? Assessment & Plan Assessment & Plan (1) Left renal stone: Code(s): N20.0 - Calculus of kidney Category: Medical (2) Bilateral kidney stones: Code(s): N20.0 - Calculus of kidney Category: Medical Plan Instructed to consume adequate amount of water. 24-hour urine collection results pending. Patient Instructions: The patient had an opportunity to ask questions regarding treatment plan. The patient expressed understanding and agreement with the above treatment plan. The patient is aware they should contact our office by phone for worsening of their current condition or the appearance of new symptoms. Compliance is encouraged with any medications and followup testing that is ordered. It is a privilege to be allowed the opportunity to participate in the urologic care of your patient. If you have any questions or concerns regarding treatment for the above conditions please do not hesitate to contact me. The office telephone contact is [phone]. This note is constructed in part using voice recognition software. While every effort has been made to ensure accuracy securities and real estate director errors may have been included. Yours sincerely, Matteo Littlejohn MD Coding Level of Care Code Est Pt Level 4 (87950) Diagnoses Left renal stone N20.0 Bilateral kidney stones N20.0 Time Spent (min) 30
== END 2024-03-02 12:22 | disposition home or self-care (01) ==
PROVIDERS: PCP Internal Medicine; Visit Provider Urology
DX: N20.0 Calculus of kidney (principal)
CPT/HCPCS: 99214

== ENCOUNTER 2024-03-02 11:32 | Outpatient (REF) | payer OTHER, SELFPAY ==
[2024-03-02 12:47] LABS: MANUAL DIFF FLAG NO
[2024-03-02 13:29] LABS: Basophils Absolute Auto 0.1 X10*3/uL (0.0-0.2); Basophils Percent Auto 0.8 % (0-2); Eosinophils Absolute Auto 0.4 X10*3/uL (0.0-0.4); Eosinophils Percent Auto 4.1 % (0-4); Hematocrit 38.6 % (37.0-47.0); Imm Gran Abs Auto 0.03 X10*3/uL (0.00-0.03); Imm Gran Pct Auto 0.3 % (0.0-0.4); Lymphocytes Absolute Auto 3.2 X10*3/uL (1.2-4.9); Lymphocytes Percent Auto 32.5 % (20-40); Mean Corpuscular HGB Conc 33.7 g/dl (31.0-35.0); Mean Corpuscular Hemoglobin 27.7 pg (27.0-33.0); Mean Corpuscular Volume 82.3 fL (80.0-98.0); Mean Platelet Volume 9.5 fL (9.4-12.3); Monocytes Absolute Auto 0.6 X10*3/uL (0.1-1.2); Monocytes Percent Auto 6.6 % (2-11); Neutrophils Absolute Auto 5.4 x10*3/uL (2.0-8.3); Neutrophils Percent Auto 55.7 % (45-73); Platelet Count 288 X10*3/uL (160-400); Red Blood Count 4.69 X10*6/uL (4.20-5.50); Red Cell Distribution Width 14.5 % (11.0-16.0); White Blood Count 9.8 X10*3/uL (4.8-10.8)
[2024-03-02 13:40] LABS: INTERNATIONAL NORM RATIO 0.9 (0.9-1.1); Prothrombin Time 10.4 SEC (10.9-12.4)
[2024-03-02 13:59] LABS: Anion Gap 11 (12-20); Blood Urea Nitrogen 11 mg/dL (9-16); Calcium 8.8 mg/dL (8.4-10.2); Carbon Dioxide 24 mmol/L (22-29); Chloride 108 mmol/L (96-108); Estimated Glomerular Filt Rate > 60; Glucose Random 97 mg/dL (60-115); Potassium 4.2 mmol/L (3.3-5.1); Sodium 139 mmol/L (135-145)
== END 2024-03-02 11:33 | disposition home or self-care (01) ==
LOC: HO.LAB 11:32
PROVIDERS: Student in an Organized Health Care Education/Training Program; PCP Internal Medicine; Visit Provider Urology
DX: Z01.818 Encounter for other preprocedural examination (principal); I47.10 Supraventricular tachycardia, unspecified; N20.0 Calculus of kidney
CPT/HCPCS: 36415; 80048; 85025; 85610; 99212

== ENCOUNTER 2024-04-23 13:46 | Outpatient (REF) | payer OTHER, SELFPAY ==
--- OUTSIDE RECORDS SUMMARY | 2024-04-23 16:46 | XMS_ITS | Encounter Summary ---
Author Organization [employer] Address [address] [facility] [address] [place] [address] Care Team Providers Care Sport Intern Name Role Phone Alex Sheriff MD Primary Care Provider [phone] Encounter Details Date Type Department Care Team ([facility] st Contact Info) Description 03/25/2024 9:00 AM EST Office Visit [facility] [address] [place], [place] [phone] Bernardo Masters MD [address] [place], [place] [phone] Congestion of nasal sinus (Primary Dx); Dietary counseling; Exercise counseling; Primary hypertension Social History Tobacco Use Types Packs/Day Years Used Date Smoking Tobacco: Former Smokeless Tobacco: Never Alcohol Use Standard Drinks/Week Comments Not Currently 0 (1 standard drink = 0.6 oz pur e alcohol) Housing Stability Answer Date Recorded What is your housing situation today? I have natalie ashby 03/28/[address] you li ve. Do you have problems with any of the following? None of the above 03/28/2023 Food Insecurity Answer Date Recorded Within the past 12 months, y ou worried that your food would run out before you got money to buy more: Never True 03/28/2023 Within the past 12 months,th e food you bought just didn't last and you didn't have enough money to get more: Never True 09/2023 Transportation Answer Date Recorded In the past 12 months, has l ack of transportation kept you from medical appts, meetings, work or from getting things needed for daily living? No 03/28/2023 Utilities Answer Date Recorded In the past 12 months, has t he electric, gas, oil or water company threatened to shut off services in your home? No 03/28/2023 Depression Answer Date Recorded Patient Health Questionnaire-2 Score 4 03/28/2023 Comments No Sex and Gender Information Value Date Recorded Sex Assigned at Female 12/18/2021 10:16 AM EDT Legal Sex Female 10:16 AM EDT Gender Identity Choose not to disclose 10:16 AM EDT Sexual Orientation Choose not to disclose 2021 10:16 AM EDT documented as of this encounter Last Filed Vital Signs Vital Sign Reading Time Taken Comments Blood Pressure 156/113 03/25/2024 9:06 AM EST Pulse 80 03/25/2024 9:06 AM EST Temperature 36.4 ??C (97.6 ??F) 03/25/2024 9:06 AM ES T Respiratory Rate 20 03/25/2024 9:06 AM EST Oxygen Saturation - - Inhaled Oxygen Concentration - - Weight 89.8 kg (198 lb) 03/25/2024 9:06 AM EST Height 157.5 cm (5' 2 ) 03/25/2024 9:06 AM EST Body Mass Index 36.21 03/25/2024 9:06 AM EST documented in this encounter Progress Notes * Bernardo Taylor MD - 03/25/2024 9:00 AM EST Subjective Patient ID: Tank Santiago is a 48 y.o. adult who presents for No chief complaint on file.. Sinus Problem This is a chronic problem. There has been no fever. Associated symptoms include congestion and sinus pressure. Pertinent negatives include no headaches or shortness of breath. Review of Systems HENT: Positive for congestion and sinus pressure. Respiratory: Negative for shortness of breath. Neurological: Negative for headaches. Objective Physical Exam Constitutional: Appearance: Normal appearance. Cardiovascular: Rate and Rhythm: Normal rate and regular rhythm. Heart sounds: No murmur heard. Neurological: General: No focal deficit present. Mental Status: She is alert and oriented to person, place, and time. Psychiatric: Mood and Affect: Mood normal. Behavior: Behavior normal. Assessment/Plan Problem List Items Addressed This Visit None Visit Diagnoses Congestion of nasal sinus - Primary Will provide azelastine, sudafed, no sign of sinus infection, continue with saline nasal spray, Dietary counseling Exercise counseling documented in this encounter Miscellaneous Notes * Assessment & Plan Note - Bernardo Taylor MD - 03/25/2024 10:59 AM ESTAssociated Problem(s): HTN (hypertension) Uncontolled, she is only taking lisinopril, told to restart diltiazem, continue low sodium diet, keep bp log, follow up with nursing team for bp check documented in this encounter Plan of Treatment Not on file documented as of this encounter Visit Diagnoses Diagnosis Congestion of nasal sinus- Primary Other diseases of nasal cavity and sinuses Dietary counseling Dietary surveillance and counseling Exercise counseling Primary hypertension Unspecified essential hypertension documented in this encounter Care Teams Sport Intern Relationship Specialty Start Date End Date Alex Sheriff MD [address] [place] [id number] PCP - General Internal Medicine 02/25/13 documented as of this encounter
--- OUTSIDE RECORDS SUMMARY | 2024-04-23 16:46 | XMS_ITS | Clinical Summary ---
Author Organization [facility] Facility Address [address] [place] [id number] Care Team Providers Care Information Developer Name Role Phone Alex Sheriff MD Primary Care Provider [phone] Allergies Active Allergy Reactions Criticality Noted Date Comments Morphine And Codeine 04/14/2020 Medications lisinopril (PRINIVIL,ZESTR IL) 40 MG tabletIndicatio ns:Hypertension Take 1 tablet by mouth 1 (one) time each day Active dilTIAZem (TIAZAC) 300 MG 24 hr capsuleIndicati ons:Hypertensio n Take 300 mg by mouth 1 (one) time each day Active butalbital-acet aminophen-caffe ine-codeine (FIORICET WITH CODEINE) 68-699-04-30 MG per capsuleIndicati ons:Hypertensio n Take 1 capsule by mouth daily Active metoprolol succinate XL (TOPROL-XL) 50 MG 24 hr tablet Take 50 mg by mouth 1 (one) time each day 04/20/2020 Active omeprazole (PriLOSEC) [address] capsule TAKE 1 CAPSULE BY MOUTH EVERY DAY BEFORE A MEAL 05/25/2020 Active Active Problems Problem Noted Date Diagnosed Date Essential hypertension 04/14/2020 Family History Medical History Relation Comments Hypertension Father Diabetes Mother Relation Status Comments Father Mother Social History Tobacco Use Types Packs/Day Years Used Date Smoking Tobacco: Never Smokeless Tobacco: Never Alcohol Use Standard Drinks/Week Comments Never 0 (1 standard drink = 0.6 oz pur e alcohol) Comments Unknown Sex and Gender Information Value Date Recorded Sex Assigned at Not on file Legal Sex Female 5:07 PM EST Gender Identity Not on file Sexual Orientation Not on file Last Filed Vital Signs Vital Sign Reading Time Taken Comments Blood Pressure 118/82 05/30/2020 3:14 PM EDT Pulse 79 05/30/2020 3:14 PM EDT Temperature - - Respiratory Rate - - Oxygen Saturation 95% 05/30/2020 3:14 PM EDT Inhaled Oxygen Concentration - - Weight 87.2 kg (192 lb 3.2 oz) 05/30/2020 3:14 P M EDT Height 157.5 cm (5' 2 ) 05/30/2020 3:14 PM EDT Body Mass Index 35.15 05/30/2020 3:14 PM EDT Plan of Treatment Health Maintenance Due Date Last Done Comments Hepatitis B Vaccine (1 of 3 - 19+ 3-dose series) 05/10/1995 Influenza Vaccine (#1) 2023 Pneumococcal Vaccine: Pediat rics (0 to 5 Years) and At-Risk Patients (6 to 64 Years) Aged Out No longer eligi ble based on patient's age to complete this topic Insurance [address] [place] [phone] [facility] ([id number]) DONNA EGAN [id number] [facility] ([id number]) DONNA EGAN [id number] Care Teams Information Developer Relationship Specialty Start Date End Date Alex Sheriff MD PCP - General 02/29/20
--- OUTSIDE RECORDS SUMMARY | 2024-04-23 16:46 | XMS_ITS | Encounter Summary ---
Author Organization [employer] Address [address] [facility] [address] [place] [address] Care Team Providers Care Bsa/Aml Compliance Officer Name Role Phone Alex Sheriff MD Primary Care Provider [phone] Encounter Details Date Type Department Care Team (Latest Contact Info) Description 03/25/2024 Travel Social History Tobacco Use Types Packs/Day Years [...] AM EDT documented as of this encounter Plan of Treatment Not on file documented as of this encounter Visit Diagnoses Not on filedocumented in this encounter Care Teams Bsa/Aml Compliance Officer Relationship Specialty Start Date End Date Alex Sheriff MD [address] [place] [id number] PCP - General Internal Medicine 02/25/13 documented as of this encounter
--- OUTSIDE RECORDS SUMMARY | 2024-04-23 16:46 | XMS_ITS | Encounter Summary ---
Author Organization [employer] Address [address] [facility] [address] [place] [address] Care Team Providers Care Demolition Expert Name Role Phone Alex Sheriff MD Primary Care Provider [phone] Reason for Visit * Reason Onset Date Comments Hospital Follow-up 12/23/2023 Encounter Details Date Type Department Care Team (Late st Contact Info) Description 12/23/2023 Telephone [facility] MEDICINE [address] [place] [address] Alex Sheriff MD [address] [place] [phone] Hospital Follow-up Social History Tobacco Use Types Packs/Day Years Used Date Smoking Tobacco: Former Smokeless Tobacco: Never Alcohol Use Standard Drinks/Week Comments Not Currently 0 (1 standard drink = 0.6 oz pur e alcohol) Housing Stability Answer Date Recorded What is your housing situation today? I have nataliechevy ashby 03/28/[address] you [...] AM EDT documented as of this encounter Miscellaneous Notes * Telephone Encounter - Kenroy Bertrand - 12/23/2023 1:16 PM EST Tc from pt requesting a AmbricF appt. Hospital: [facility] Date of admission: 12/18/2023 Discharge date: 12/22/2023 Diagnosed: Infection kidney *Send message to [place] Clinical Care Coordinators documented in this encounter Plan of Treatment Not on file documented as of this encounter Visit Diagnoses Not on filedocumented in this encounter Care Teams Demolition Expert Relationship Specialty Start Date End Date Alex Sheriff MD [address] [place] [id number] PCP - General Internal Medicine 02/25/13 documented as of this encounter
--- OUTSIDE RECORDS SUMMARY | 2024-04-23 16:46 | XMS_ITS | Encounter Summary ---
Author Organization [employer] Address [address] [facility] [address] [place] [address] Care Team Providers Care Veterinary Medical Officer Name Role Phone Alex Sheriff MD Primary Care Provider [phone] Reason for Visit * Reason Onset Date Comments Hospital Follow-up 12/18/2023 Encounter Details Date Type Department Care Team ([facility] st Contact Info) Description 12/18/2023 Telephone [facility] MEDICINE [address] [place] [address] Alex Sheriff MD [address] [place], [place] [phone] Hospital Follow-up Social History Tobacco Use Types [...] encounter Miscellaneous Notes * Telephone Encounter - Yanira Frances RN - 12/18/2023 4:09 PM EDT Pt is scheduled tomorrow for HDF * Telephone Encounter - Lawanda Fofana - 12/18/2023 10:13 AM EDT Tc from pt requesting a HDF appt. Hospital: [facility] Date of admission: 12/13 Discharge date: 12/16 Diagnosed: Kidney Stone Pt is requesting pain medication. Contact pt at [phone] documented in this encounter Plan of Treatment Not on file documented as of this encounter Visit Diagnoses Not on filedocumented in this encounter Care Teams Veterinary Medical Officer Relationship Specialty Start Date End Date Alex Sheriff MD [address] [place] [id number] PCP - General Internal Medicine 02/25/13 documented as of this encounter
--- OUTSIDE RECORDS SUMMARY | 2024-04-23 16:46 | XMS_ITS | Encounter Summary ---
Author Organization [employer] Address [address] [facility] [address] [place] [address] Care Team Providers Care Turret Punch Operator Name Role Phone Alex Sheriff MD Primary Care Provider [phone] Reason for Visit * Reason Onset Date Comments Medication Question 08/05/2023 Encounter Details Date Type Department Care Team ([facility] st Contact Info) Description 08/05/2023 Telephone [facility] MEDICINE [address] [place] [address] Alex Sheriff MD [address] [place], [place] [phone] Medication Question Social History Tobacco Use Types Packs/Day Years [...] encounter Miscellaneous Notes * Telephone Encounter - Kellen Johnson RN - 08/09/2023 9:13 AM EDT Called pt. To notify that Trini was sent to Pharmacy for allergies. * Telephone Encounter - Kellen Johnson RN - 08/08/2023 4:59 PM EDT Any advise as to whether any pain medication will be sent to Pharmacy? Pt has taken Tramadol and Flexeril in past in her med list. See previous TC part2. * Telephone Encounter - Kellen Johnson RN - 08/08/2023 3:03 PM EDT Called pt. She states that she has bad seasonal allergies. Sneezing, itchy watery eyes, itchy throat. Pt has been taking Zyrtec with no relief and also tried Benadryl with no relief at all. Pt wants alternative medications for allergies but pt. States please be mindful of my High blood pressure . Pt has never been on Fluticasone or Singulair for allergies. Pt also requesting a RX for her low back pain. Pt was at a picnic yesterday and bent over to miner pick something and 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 Pt has Hx of low back pain but it was doing well until she pulled it yesterday. Pt. Has been using a heating pad and is requesting some Tramadol or Flexeril or both. Please advise. Protocol Used: Nasal Allergies (Hay Fever) (Adult) Protocol-Based Disposition: See in Office or Video Visit Today or Tomorrow Video visit offer not recorded Positive Triage Questions: * Moderate-Severe nasal allergy symptoms (i.e., interfere with sleep, school, or work) and taking antihistamines > 2 days * Nasal allergies occur only certain times of year * All higher-acuity triage questions were negative Care Advice Discussed: * Reassurance and Education - Hay Fever * Wash Pollen off Body Daily * Avoiding Pollen * Nasal Washes for a Stuffy Nose and to Wash out Pollen * Nasal Washes - [id number] Instructions * Antihistamine Medicines for Hay Fever * Antihistamine Medicines - Extra Notes and Warnings * Nasal Decongestants for a Very Stuffy Nose * For Eye Allergies Protocol Used: Back Pain (Adult) Protocol-Based Disposition: See in Office or Video Visit Today Video visit not offered Positive Triage Question: * Severe back pain (e.g., excruciating, unable to do any normal activities) and not improved after pain medicine and Care Advice * All higher-acuity triage questions were negative Care Advice Discussed: * Cold or Heat * Sleep * Activity * Pain Medicines * Telephone Encounter - Uvaldo Crews - 08/05/2023 11:37 AM EDT Tc from patient calling to request a higher dose for cetirizine (ZyrTEC) 10 MG tablet or a different medications patient stated it is not working documented in this encounter Plan of Treatment Not on file documented as of this encounter Visit Diagnoses Diagnosis Muscle pain Unspecified myalgia and myositis Wound of right lower extremity, subsequent encounter documented in this encounter Care Teams Turret Punch Operator Relationship Specialty Start Date End Date Alex Sheriff MD [address] [place] [id number] PCP - General Internal Medicine 02/25/13 documented as of this encounter
--- OUTSIDE RECORDS SUMMARY | 2024-04-23 16:46 | XMS_ITS | Encounter Summary ---
Author Organization [employer] Address [address] [facility] 7t [place] [address] Care Team Providers Care Credit Specialist Name Role Phone Alex Sheriff MD Primary Care Provider [phone] Encounter Details Date Type Department Care Team (Late st Contact Info) Description 03/25/2024 Telephone [facility] MED[facility]INE [address] [place] [address] Luiza Chu, RN [address] [place] [address] Social History Tobacco Use Types Packs/Day Years [...] encounter Miscellaneous Notes * Telephone Encounter - Luiza Chu RN - 03/25/2024 4:55 PM EST Pt is scheduled for a PE in a month and june f/u re: BP at scheduled PE. * Telephone Encounter - Luiza Chu RN - 03/25/2024 4:55 PM EST ----- Message from Bernardo Taylor MD sent at 03/25/2024 9:24 AM EST ----- Please schedule follow up for bp check in 1 month with nursing team documented in this encounter Plan of Treatment Not on file documented as of this encounter Visit Diagnoses Not on filedocumented in this encounter Care Teams Credit Specialist Relationship Specialty Start Date End Date Alex Sheriff MD [address] [place] [id number] PCP - General Internal Medicine 02/25/13 documented as of this encounter
--- OUTSIDE RECORDS SUMMARY | 2024-04-23 16:46 | XMS_ITS | Encounter Summary ---
Author Organization [employer] Address [address] [facility] 7t [place] [address] Care Team Providers Care Laborer Wrecking And Salvaging Name Role Phone Alex Sheriff MD Primary Care Provider [phone] Reason for Visit * Reason Onset Date Comments Nurse Triage 05/20/2023 Encounter Details Date Type Department Care Team ([facility] st Contact Info) Description 05/20/2023 Telephone [facility]INE [address] [place] [address] Alex Sheriff MD [address] [place] [address] Nurse Triage Social History Tobacco Use Types Packs/Day Years [...] encounter Miscellaneous Notes * Telephone Encounter - Uvaldo Crews - 05/20/2023 11:38 AM EDT Symptom: Nasal Allergies (Hay Fever) Outcome: Schedule an urgent appointment (within 1 hour) or talk to a nurse or provider soon Reason: Wheezing (high-pitched whistling sound) The caller accepted this outcome Patient was seen on 05/06 and is on medication but states is still feeling the symptoms documented in this encounter Plan of Treatment Not on file documented as of this encounter Visit Diagnoses Not on filedocumented in this encounter Care Teams Laborer Wrecking And Salvaging Relationship Specialty Start Date End Date Alex Sheriff MD [address] [place] [id number] PCP - General Internal Medicine 02/25/13 documented as of this encounter
--- OUTSIDE RECORDS SUMMARY | 2024-04-23 16:46 | XMS_ITS | Encounter Summary ---
Author Organization [employer] Address [address] [place] [address] 7t [place] [address] Care Team Providers Care Rock Mason Name Role Phone Alex Sheriff MD Primary Care Provider [phone] Reason for Visit * Reason Comments Pre-visit Planning SDOH negative, Tobac co screening negative Encounter Details Date Type Department Care Team ([facility] st Contact Info) Description 04/16/2024 Patient Outreach [facility] CHC MED & PEDS [address] [place], [place] [phone] Alex Sheriff MD [address] [place] [address] Pre-visit Planning (SDOH negative, Tobacco screening negative) Social History Tobacco Use Types Packs/Day Years Used Date Smoking Tobacco: Former Smokeless Tobacco: Never Alcohol Use Standard Drinks/Week Comments Not Currently 0 (1 standard drink = 0.6 oz pur e alcohol) Depression Answer Date Recorded Patient Health Questionnaire-9 Score 0 04/08/2024 Patient Health Questionnaire-9 Score 0 04/08/2024 Last PHQ-9: Questionnaire Data Not on file 0 04/08/2024 Housing Stability Answer Date Recorded What is your housing situation today? I have natalie ashby 04/16/[address] you li ve. Do you have problems with any of the following? None of the above 04/16/2024 Food Insecurity Answer Date Recorded Within the past 12 months, y ou worried that your food would run out before you got money to buy more: Never True 04/16/2024 Within the past 12 months,th e food you bought just didn't last and you didn't have enough money to get more: Never True Transportation Answer Date Recorded In the past 12 months, has l ack of transportation kept you from medical appts, meetings, work or from getting things needed for daily living? No 04/16/2024 Utilities Answer Date Recorded In the past 12 months, has t he electric, gas, oil or water company threatened to shut off services in your home? No 04/16/2024 Depression Answer Date Recorded Patient Health Questionnaire-2 Score 0 04/08/2024 Internet Access Answer Date Recorded Internet Access Q1 Yes 04/16/2024 Internet Access Q2 Not on file 04/16/2024 Comments No Sex and Gender Information Value Date Recorded Sex Assigned at Female 12/18/2021 10:16 AM EDT Legal Sex Female 10:16 AM EDT Gender Identity Choose not to disclose 10:16 AM EDT Sexual Orientation Choose not to disclose 2021 10:16 AM EDT documented as of this encounter Progress Notes * Lachelle Dutton - 04/16/2024 11:23 AM EST CC Lachelle Blount placed successful outbound call to patient for pre-visit planning. Patient name and confirmed. Patient confirms appt date and time, and has transportation arrangements. Biggest concern for appointment at this time is no concerns. Appropriate screenings completed in anticipation ofappointment. documented in this encounter Plan of Treatment Not on file documented as of this encounter Visit Diagnoses Not on filedocumented in this encounter Additional Health Concerns Assessment Noted Time PHQ-9 Depression Total Score: 0 04/08/19 25 9:21 AM EST documented as of this encounter Care Teams Rock Mason Relationship Specialty Start Date End Date Alex Sheriff MD [address] [place] [id number] PCP - General Internal Medicine 02/25/13 documented as of this encounter
--- OUTSIDE RECORDS SUMMARY | 2024-04-23 16:46 | XMS_ITS | Encounter Summary ---
Author Organization [employer] Address [address] [place] [address] 7t [place] [address] Care Team Providers Care Hand Blocker Name Role Phone Alex Sheriff MD Primary Care Provider [phone] Encounter Details Date Type Department Care Team (Late st Contact Info) Description 10/05/2022 Orders Only [facility] CHC MED & PEDS [address] [place], [place] [phone] Alex Sheriff MD [address] [place], [place] [phone] Chronic migraine without aura with status migrainosus, not intractable (Primary Dx) Social History Tobacco Use Types Packs/Day Years Used Date Smoking Tobacco: Former Smokeless Tobacco: Never Alcohol Use Standard Drinks/Week Comments Not Currently 0 (1 standard drink = 0.6 oz pur e alcohol) Comments No Sex and Gender Information Value Date Recorded Sex Assigned at Female 12/18/2021 10:16 AM EDT Legal Sex Female 10:16 AM EDT Gender Identity Choose not to disclose 10:16 AM EDT Sexual Orientation Choose not to disclose 2021 10:16 AM EDT documented as of this encounter Plan of Treatment Not on file documented as of this encounter Visit Diagnoses Diagnosis Chronic migraine without aura with status migrainosus, not intractable- Primary documented in this encounter Care Teams Hand Blocker Relationship Specialty Start Date End Date Alex Sheriff MD [address] [place] [address] PCP - General Internal Medicine 02/25/13 documented as of this encounter
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
--- OUTSIDE RECORDS SUMMARY | 2024-04-23 16:46 | XMS_ITS | Encounter Summary ---
Author Organization [employer] Address [address] [facility] 7t [place] [address] Care Team Providers Care Violin Tutor Name Role Phone Alex Sheriff MD Primary Care Provider [phone] Encounter Details Date Type Department Care Team (Latest Contact Info) Description 04/23/2024 Travel Social History Tobacco Use Types Packs/Day [...] documented as of this encounter Care Teams Violin Tutor Relationship Specialty Start Date End Date Alex Sheriff MD [address] [place] [address] PCP - General Internal Medicine 02/25/13 documented as of this encounter
--- OUTSIDE RECORDS SUMMARY | 2024-04-23 16:46 | XMS_ITS | Encounter Summary ---
Author Organization [employer] Address [address] [facility] 7t [place] [address] Care Team Providers Care Food Processing Plant Manager Name Role Phone Alex Sheriff MD Primary Care Provider [phone] Reason for Visit * Reason Comments Med Refill Encounter Details Date Type Department Care Team ([facility] st Contact Info) Description 12/23/2023 Refill [facility] CHC MED & PEDS [address] [place], [place] [phone] Alex Sheriff MD [address] [place] [address] Cerumen debris on tympanic membrane of left ear Social History Tobacco Use Types Packs/Day Years Used Date Smoking Tobacco: Former Smokeless Tobacco: Never Alcohol Use Standard Drinks/Week Comments Not Currently 0 (1 standard drink = 0.6 oz pur e alcohol) Housing Stability Answer Date Recorded What is your housing situation today? I have natalie sima 03/28/[address] you li [...] as of this encounter Visit Diagnoses Diagnosis Cerumen debris on tympanic membrane of left ear documented in this encounter Care Teams Food Processing Plant Manager Relationship Specialty Start Date End Date Alex Sheriff MD [address] [place] [id number] PCP - General Internal Medicine 02/25/13 documented as of this encounter
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
--- OUTSIDE RECORDS SUMMARY | 2024-04-23 16:46 | XMS_ITS | Encounter Summary ---
Author Organization [employer] Address [address] [place] [address] [address] [place] [address] Care Team Providers Care Quality Control Director Name Role Phone Alex Sheriff MD Primary Care Provider [phone] Reason for Visit * Reason Onset Date Comments Nurse Triage 04/07/2024 Encounter Details Date Type Department Care Team ([facility] st Contact Info) Description 04/07/2024 Telephone [facility] PEDS [address] [place] [address] Alex Sheriff MD [address] [place] [address] Nurse Triage Social History Tobacco Use Types [...] Recorded Patient Health Questionnaire-2 Score 0 04/08/2024 Comments No Sex and Gender Information Value Date Recorded Sex Assigned at Female 12/18/2021 10:16 AM EDT Legal Sex Female 10:16 AM EDT Gender Identity Choose not to disclose 10:16 AM EDT Sexual Orientation Choose not to disclose 2021 10:16 AM EDT documented as of this encounter Miscellaneous Notes * Telephone Encounter - Kellen Johnson RN - 04/07/2024 2:51 PM EST Called pt. She states that she is still having sinus congestion. Pt has been doing nasal rinses andtaking the medication that she has been prescribed and her sinuses are still congested. Pt. Has sinus pressure, headache and thick drainage. This has been going on x over 2 weeks. Pt states she is getting frustrated and at this point is asking for an antibiotic. Pt states sinus and nasal drainage is thick but is not yellow or green. Advised to continue using the nasal spray, washes and medicationand increase water intake. Televisit given to pt. For 04/08/[address] Domínguez. Protocol Used: Sinus Pain or Congestion (Adult) Protocol-Based Disposition: See in Office or Video Visit Today or Tomorrow- televisit scheduled for 04/08/24 at 930am. Video visit offer not recorded Positive Triage Questions: * Sinus congestion (pressure, fullness) present > 10 days * Nasal discharge present > 10 days * Using nasal washes and pain medicine > 24 hours and sinus pain (lower forehead, cheekbone, or eye) persists * All higher-acuity triage questions were negative Care Advice Discussed: * Nasal Washes for a Stuffy Nose * Nasal Washes - [id number] Instructions * How to Make Saline (Salt Water) Nasal Wash * Hydration * Telephone Encounter - Anne Rosa - 04/07/2024 2:20 PM EST Symptom: Sinus Symptoms Outcome: Schedule an appointment to be seen within 24 hours Reason: Caller denied all higher acuity questions The caller accepted this outcome. Medication does not seem to be working documented in this encounter Plan of Treatment Not on file documented as of this encounter Visit Diagnoses Not on filedocumented in this encounter Care Teams Quality Control Director Relationship Specialty Start Date End Date Alex Sheriff MD [address] [place] [id number] PCP - General Internal Medicine 02/25/13 documented as of this encounter
--- OUTSIDE RECORDS SUMMARY | 2024-04-23 16:46 | XMS_ITS | Encounter Summary ---
Author Organization [employer] Address [address] [facility] [address] [place] [address] Care Team Providers Care Gasket Winder Name Role Phone Alex Sheriff MD Primary Care Provider [phone] Reason for Visit * Reason Onset Date Comments Nurse Triage 03/24/2024 Encounter Details Date Type Department Care Team ([facility] st Contact Info) Description 03/24/2024 Telephone [facility] MED & PEDS [address] [place] [address] Alex Sheriff MD [address] [place] [address] Nurse Triage Social History Tobacco Use Types [...] t he electric, gas, oil or water [employer] threatened to shut off services in your [...] encounter Miscellaneous Notes * Telephone Encounter - Navya Nolasco LPN - 03/24/2024 2:04 PM EST Triage call returned to patient who reports chronic and ongoing nasal congestion and runny nose forapprox one year. Has been med compliant with fernando 180mg previously ordered and has had no noted improvement. Reports worsening symptoms with itchy watery eyes and has purchased and used a neti potbut noted blood in mucous so stopped. Patient without fever no ear pain no sore throat. Patient anxious as she is post ablation on 03/10/24 and is not able to sleep due to nasal congestion. Disposition reviewed and patient in agreement with plan. ASK/ tomorrow at 9am. Protocol Used: Nasal Allergies (Hay Fever) (Adult) Protocol-Based Disposition: See in Office or Video Visit Today or Tomorrow Video visit not offered Positive Triage Question: * Taking antihistamines > 2 days AND nasal allergy symptoms interfere with sleep, school, or work * All higher-acuity triage questions were negative Care Advice Discussed: * Reasons To Call Back - Symptoms are not controlled in 2 days with continuous antihistamines - You become worse * Telephone Encounter - Anne Padgett - 03/24/2024 11:51 AM EST Symptom: Sinus Symptoms Outcome: Schedule an appointment to be seen within 24 hours Reason: Caller denied all higher acuity questions The caller accepted this outcome. documented in this encounter Plan of Treatment Not on file documented as of this encounter Visit Diagnoses Not on filedocumented in this encounter Care Teams Gasket Winder Relationship Specialty Start Date End Date Alxe Sheriff MD [address] [place] [id number] PCP - General Internal Medicine 02/25/13 documented as of this encounter
--- OUTSIDE RECORDS SUMMARY | 2024-04-23 16:46 | XMS_ITS | Encounter Summary ---
Author Organization [employer] Address [address] [facility] [address] [place] [address] Care Team Providers Care Telemarketing Representative Name Role Phone Alex Sheriff MD Primary Care Provider [phone] Encounter Details Date Type Department Care Team (Latest Contact Info) Description 04/08/2024 Travel Social History Tobacco Use Types Packs/Day [...] documented as of this encounter Care Teams Telemarketing Representative Relationship Specialty Start Date End Date Alex Sheriff MD [address] [place] [id number] PCP - General Internal Medicine 02/25/13 documented as of this encounter
--- OUTSIDE RECORDS SUMMARY | 2024-04-23 16:46 | XMS_ITS | Encounter Summary ---
Author Organization [employer] Address [address] [facility] [address] [place] [address] Care Team Providers Care Sports Physiotherapist Name Role Phone Alex Sheriff MD Primary Care Provider [phone] Encounter Details Date Type Department Care Team ([facility] st Contact Info) Description 04/08/2024 9:30 AM EST Telemedicine [facility] MED & PEDS [address] [place], [place] [phone] GantBernardo West MD [address] [place], [place] [phone] Subacute maxillary sinusitis (Primary Dx) Social History Tobacco Use Types [...] as of this encounter Progress Notes * Yesica Crews MA - 04/08/2024 9:30 AM EST ;/ * Bernardo Taylor MD - 04/08/2024 9:30 AM EST Subjective Patient ID: Tank Santiago is a 48 y.o. adult who presents for No chief complaint on file.. Sinusitis This is a new problem. Associated symptoms include congestion, headaches, sinus pressure and sneezing. Pertinent negatives include no chills. Review of Systems Constitutional: Negative for chills. HENT: Positive for congestion, sinus pressure and sneezing. Neurological: Positive for headaches. Objective Physical Exam Neurological: General: No focal deficit present. Mental Status: She is oriented to person, place, and time. Psychiatric: Mood and Affect: Mood normal. Behavior: Behavior normal. Assessment/Plan Problem List Items Addressed This Visit None Visit Diagnoses Subacute maxillary sinusitis - Primary Will start on augmentin, continue nasal spray, stay well hydrated, call back if not imprving documented in this encounter Plan of Treatment Not on file documented as of this encounter Visit Diagnoses Diagnosis Subacute maxillary sinusitis- Primary documented in this encounter Additional Health Concerns Assessment Noted Time PHQ-9 Depression Total Score: 0 04/08/19 25 9:21 AM EST documented as of this encounter Care Teams Sports Physiotherapist Relationship Specialty Start Date End Date Alex Sheriff MD [address] [place] [id number] PCP - General Internal Medicine 02/25/13 documented as of this encounter
--- OUTSIDE RECORDS SUMMARY | 2024-04-23 16:46 | XMS_ITS | Encounter Summary ---
Author Organization [employer] Address [address] [place] [address] [address] [place] [address] Care Team Providers Care Maintenance Millwright Name Role Phone Alex Sheriff MD Primary Care Provider [phone] Encounter Details Date Type Department Care Team (Late st Contact Info) Description 09/14/2022 Orders Only [facility] MED & PEDS [address] [place], [place] [phone] Alex Sheriff MD [address] [place] [address] Chronic migraine without aura without status migrainosus, not intractable (Primary Dx) Social History Tobacco Use Types Packs/Day Years Used Date Smoking Tobacco: Former Cigarettes Smokeless Tobacco: Never Comments Unknown Sex and Gender Information Value [...] Visit Diagnoses Diagnosis Chronic migraine without aura without status migrainosus, not intractable- Primary documented in this encounter Care Teams Maintenance Millwright Relationship Specialty Start Date End Date Alex Sheriff MD [address] [place] [address] PCP - General Internal Medicine 02/25/13 documented as of this encounter
--- OUTSIDE RECORDS SUMMARY | 2024-04-23 16:46 | XMS_ITS | Encounter Summary ---
Author Organization [employer] Address [address] [facility] 7t [place] [address] Care Team Providers Care Decal Applier Name Role Phone Alex Sheriff MD Primary Care Provider [phone] Encounter Details Date Type Department Care Team (Late st Contact Info) Description 05/14/2022 Orders Only [facility]EDS [address] [place], [place] [id number] Matilde Norwood LPN Social History Tobacco Use Types Packs/Day Years Used Date Smoking Tobacco: Former Cigarettes Smokeless Tobacco: Never Comments Unknown Sex and Gender Information Value Date Recorded Sex Assigned at Female 12/18/2021 10:16 AM EDT Legal Sex Female 10:16 AM EDT Gender Identity Choose not to disclose 10:16 AM EDT Sexual Orientation Choose not to disclose 2021 10:16 AM EDT COVID-19 Exposure Response Date Recorded In the last 10 days, have yo u been in contact with someone who was confirmed or suspected to have Coronavirus/COVID-19? No / Unsure 04/30/2022 11:03 AM EDT documented as of this encounter Plan of Treatment Not on file documented as of this encounter Procedures Procedure Name Priority Date/Time Associated Diagnosis Comments GROSS EXAM WITHOUT SLIDES Routine 08/07/2022 1:35 PM EDT HCG, QL, URINE Routine 08/07/2022 10:30 AM EDT BETA-HCG, QUANTITATIVE (TUMOR MARKER) Routine 07/31/2022 7:47 PM EDT COMPLETE BLOOD COUNT MAN DIF Routine 07/31/2022 2:29 PM EDT URINALYSIS, COMPLETE, WITH REFLEX TO CULTURE Routine 07/31/2022 2:29 PM EDT MAGNESIUM Routine 07/31/2022 2:29 PM EDT LIPASE Routine 07/31/2022 2:29 PM EDT HEPATIC FUNCTION PANEL Routine 07/31/2022 2:29 PM EDT BASIC METABOLIC PANEL Routine 07/31/2022 2:29 PM EDT LACTIC ACID Routine 07/16/2022 10:07 AM EDT URINALYSIS, COMPLETE, WITH REFLEX TO CULTURE Routine 07/16/2022 9:49 AM EDT CBC WITH AUTO DIFFERENTIAL Routine 07/16/2022 7:42 AM EDT MAGNESIUM Routine 07/16/2022 7:42 AM EDT HEPATIC FUNCTION PANEL Routine 07/16/2022 7:42 AM EDT BASIC METABOLIC PANEL Routine 07/16/2022 7:42 AM EDT documented in this encounter Results * Gross Exam without slides (08/07/2022 1:35 PM EDT) 08/07/2022 1:35 PM EDT 08/07/2022 2:30 PM EDT [facility] - 08/08/2022 6:12 PM EDT ----- ------- Name: Tank Khan ? Age/Sex: 47/F ? : 1975 Unit#: [id number] ?? Attend Dr: Matteo Littlejohn MD ?Re08/07/22 ?Status: DEP SDC ? Location: HO.SSS ?Disch: ? ----- ------- SPEC : [id number] ? RECD: 08/07/22-6297 ? STATUS: ??SOUT ? REQ NUM: [id number] ? YESI: 08/07/22-1059 ? SUBM DR: Matteo Littlejohn MD ? ENTERED: ??08/07/22-5181 ?SP TYPE: Surgical ? OTHR DR: Alex Sheriff MD ? ORDERED: ??GO ? Diagnosis ?? Right ureteral stone: ??Calculous material. ??Gross examination only. ??Sent for chemical ?? analysis. ??Please see ??laboratory portion of the EMR for outside report from [facility]. ?Clinical History Pre-Op Dx: ??Calculus of kidney Post-Op Dx: Right ureteral stone ? Material Received ?? Right ureteral stone ? Gross Description Received fresh labeled ?right ureteral stone? is a 0.45 cm in greatest dimension hard, david calculus which is forwarded for chemical analysis. ??No soft tissue is identified. ??Gross description only. CEDS Copies To: ?? Matteo Littlejohn MD ?? [address] ?? [address] ?? [place] [address] ?? [phone] ?? [email or web address] ?? Alex Sheriff MD ?? [address] [place] [address] ?? [place] [address] ?? ----- ------- Signed (signature on file) Sterling White MD 08/08/221811 ? ----- ------- ? END OF REPORT ? [facility] External Provider LAB BLO OD ORDERABLES Final Result Performing Organization Address [facility] de Phone Number [facility] [address] [place] [address] [phone] * HCG, Qualitative, Urine (08/07/2022 10:30 AM EDT) Urine NEGATIVE NEGATIVE [facility] Comment:This test was develo ped to detect early . Falsenegative results may occur after the 5th - 7th week ofpregnancy when using this test method. If clinicallyindicated, consider a serum hCG. 08/07/2022 10:3 0 AM EDT 08/07/2022 10:50 AM EDT [facility] External Provider LAB URI NE ORDERABLES Final Result Performing Organization Address [facility] de Phone Number [facility] [address] [place] [address] [phone] * hCG, Total, Quantitative (07/31/2022 7:47 PM EDT) HCG Quantitative <2 mIU/mL [facility] Comment:Weeks post LMP Appro ximate hCG(Last Menstrual Period) Range (mIU/ml)3 - 4 weeks 9 - 1304 - 5 weeks 75 - 2,6005 - 6 weeks 850 - 20,8006 - 7 weeks 4000 - 100,2007 - 12 weeks 11,500 - 289,07201 - 16 weeks 18,300 - 137,19471 - 29 weeks (2nd trimester) 1,400 - 53,31690 - 41 weeks (3rd trimester) 940 - 60,000The Moralez B-hCG assay is used for the early detection ofpregnancy; it cannot be used to diagnose any conditionunrelated to . If a B-hCG level is not supportedby the clinical evidence, results should be confirmed by analternative method (qualitative urine hCG, for example). 07/31/2022 7:47 PM EDT 07/31/2022 7:51 PM EDT Narrative [facility] - 07/31/2022 8:21 PM EDT (PST) [facility] External Provider LAB BLO OD ORDERABLES Final Result Performing Organization Address [facility] de Phone Number [facility] [address] [place] [phone] * Lipase (07/31/2022 2:29 PM EDT) Pathologist [facility] Lipase 22 8 - 78 U/L [facility] 07/31/2022 2:29 PM EDT 07/31/2022 2:35 PM EDT [facility] External Provider LAB BLO OD ORDERABLES Final Result Performing Organization Address [facility] Phone Number [facility] [address] [place] [phone] * Magnesium (07/31/2022 2:29 PM EDT) Pathologist [facility] Magnesium 2.2 1.6 - 2.6 mg/dL [facility] 07/31/2022 2:29 PM EDT 07/31/2022 2:35 PM EDT [facility] External Provider LAB BLO OD ORDERABLES Final Result Performing Organization Address [facility] de Phone Number [facility] [address] [place] [phone] * Basic Metabolic Panel (07/31/2022 2:29 PM EDT) Sodium 141 135 - 145 mmol/L [facility] Potassium 4.4 3.3 - 5.1 mmol/L [facility] Chloride 108 96 - 108 mmol/L [facility] Carbon Dioxide 25 22 - 29 mmol/L [facility] Anion Gap 12 12 - 20 [facility] Urea Nitrogen (BUN) 10 9 - 16 mg/dL [facility] Creatinine, Serum 0.74 0.5 - 1.4 mg/dL [facility] Creatinine Clr Calc Pharmacy 98.6 [facility] Comment:Provided height and weight: 157.48 cm,89.3 kg.eGFR (calculated from the MDRD study equation) and eCrCl(calculated from the Cockcroft-Gault equation) are based ondifferent parameters and may not yield comparable results.If eCrCl result is absurd, please check patient'sheight/weight. Estimated Glomerular Filt Rate >60 [facility] Comment:NOTE: For -Am erican individuals, multiply the result by 1.210.Chronic Kidney Disease: Estimated GFR < 60 mL/min/1.19a3Idibjs Kidney Disease: Estimated GFR < 15 mL/min/1.73m2 Glucose 104 60 - 115 mg/dL [facility] Calcium 9.8 8.4 - 10.2 mg/dL [facility] 07/31/2022 2:29 PM EDT 07/31/2022 2:35 PM EDT us [facility] External Provider LAB BLO OD ORDERABLES Final Result [facility] [address] [place] [phone] * Hepatic Function Panel (07/31/2022 2:29 PM EDT) Bilirubin, Total 0.5 0.0 - 1.0 mg/dL [facility] Bilirubin, Direct 0.1 0.0 - 0.5 mg/dL [facility] Aspartate Amino Transferase 22 5 - 31 U/L [facility] Alanine Aminotransferase 24 0 - 31 U/L [facility] Total Protein 7.5 6.5 - 8.0 g/dL [facility] Albumin Level 4.3 3.5 - 5.0 g/dL [facility] Alkaline Phosphatase 69 39 - 117 U/L [facility] 07/31/2022 2:29 PM EDT 07/31/2022 2:35 PM EDT us [facility] External Provider LAB BLO OD ORDERABLES Final Result [facility] [address] [place] [address] [phone] * (ABNORMAL) Complete Blood Count Manual Diff (07/31/2022 2:29 PM EDT) White Blood Count 10.0 4.8 - 10.8 X10*3/uL [facility] Red Blood Count 4.89 4.20 - 5.50 X10*6/uL [facility] Hemoglobin 13.5 12.0 - 16.0 g/dl [facility] Hematocrit 41.4 37.0 - 47.0 % [facility] Mean Corpuscular Volume 84.7 80.0 - 98.0 fL [facility] Mean Corpuscular Hemoglobin 27.6 27.0 - 33.0 pg [facility] Mean Corpuscular HGB Conc 32.6 31.0 - 35.0 g/dl [facility] Red Cell Distribution Width 14.4 11.0 - 16.0 % [facility] Platelet Count 322 160 - 400 X10*3/uL [facility] Mean Platelet Volume 9.4 9.4 - 12.3 fL [facility] NRBC Pct Auto 0.0 0.0 - 0.2 /100WBC [facility] NRBC Abs Auto 0.000 0.0 - 0.012 X10*3/uL [facility] Neutrophils % Manual 58 45 - 73 % [facility] Band Neutrophils Percent 1(L) 3 - 5 % [facility] Lymphocytes Percent Manual 30 20 - 40 % [facility] Monocytes Percent Manual 6 2 - 11 % [facility] EOSINOPHILS % MANUAL 5(H) 0 - 4 % [facility] NEUTROPHILS ABSOLUTE MANUAL 5.9 2.0 - 8.3 X10*3/uL [facility] LYMPHOCYTES ABSOLUTE MANUAL 3.0 1.2 - 4.9 X10*3/uL [facility] MONOCYTES ABSOLUTE MANUAL 0.6 0.1 - 1.2 X10*3/uL [facility] EOSINOPHILS ABSOLUTE MANUAL 0.5(H) 0.0 - 0.4 X10*3/uL [facility] Platelet Estimate NORMAL NORMAL [facility] Platelet Morphology Comment NORMAL [facility] RBC Morphology NOTED [facility] Ovalocytes 1+ (5-14) /OIF [facility] Acanthocytes 2+ (3-5) /OIF [facility] 07/31/2022 2:29 PM EDT 07/31/2022 2:35 PM EDT [facility] External Provider LAB BLO OD ORDERABLES Final Result [facility] [address] [place] [address] [phone] * (ABNORMAL) Urinalysis, Complete, with Reflex to Culture (07/31/2022 2:29 PM EDT) Color Urine Yellow [facility] Appearance Urine Clear [facility] PH 6.5 5.0 - 9.0 [facility] Glucose Urine UA Negative Negative mg/dL [facility] Urine Blood Moderate (2+)(A) Negative [facility] Specific [place] - Urine <=1.005 1.005 - 1.025 [facility] Urine Protein Trace Neg-Trace mg/dL [facility] Urine Ketones Negative Negative mg/dL [facility] Nitrite Urine Negative Negative [facility] Leukocyte Esterase Urine Trace(A) Negative [facility] RBC Urine 3-5(A) 0 - 2 /HPF [facility] Urine WBC 0-5 0 - 5 /HPF [facility] Urine Squamous Epithelial Cell 3-5 0 - 2 /HPF [facility] Urine Bacteria None Seen None Seen [facility] Hyaline Casts, Urine 0-2 0 - 2 /LPF [facility] 07/31/2022 2:29 PM EDT 07/31/2022 2:35 PM EDT Narrative [facility] - 07/31/2022 3:14 PM EDT [id number], Clean Catch [facility] External Provider LAB URI NE ORDERABLES Final Result Performing Organization Address [facility]/ZIP Co de Phone Number [facility] [address] [place] [phone] * Lactic Acid (07/16/2022 10:07 AM EDT) Lactic Acid 1.5 0.5 - 2.0 mmol/L [facility] 07/16/2022 10:0 7 AM EDT 07/16/2022 10:12 AM EDT [facility] External Provider LAB BLO OD ORDERABLES Final Result Performing Organization Address [facility] Co de Phone Number [facility] [address] [place] [phone] * (ABNORMAL) Urinalysis, Complete, with Reflex to Culture (07/16/2022 9:49 AM EDT) Color Urine Yellow [facility] Appearance Urine Cloudy [facility] PH 6.0 5.0 - 9.0 [facility] Glucose Urine UA Negative Negative mg/dL [facility] Urine Blood Large (3+)(A) Negative [facility] Specific [place] - Urine 1.015 1.005 - 1.025 [facility] Urine Protein 300 (3+)(A) Neg-Trace mg/dL [facility] Urine Ketones Negative Negative mg/dL [facility] Nitrite Urine Negative Negative [facility] Leukocyte Esterase Urine Large (3+)(A) Negative [facility] RBC Urine 3-5(A) 0 - 2 /HPF [facility] Urine WBC >50(A) 0 - 5 /HPF [facility] Urine Squamous Epithelial Cell 0-2 0 - 2 /HPF [facility] Urine Bacteria 4+ None Seen [facility] Hyaline Casts, Urine 3-5 0 - 2 /LPF [facility] 07/16/2022 9:49 AM EDT 07/16/2022 9:52 AM EDT Narrative [facility] - 07/16/2022 10:06 AM EDT [id number], Clean Catch [facility] External Provider LAB URI NE ORDERABLES Final Result Performing Organization Address [facility] Co de Phone Number [facility] [address] [place] [phone] * Magnesium (07/16/2022 7:42 AM EDT) Pathologist [facility] Magnesium 1.8 1.6 - 2.6 mg/dL [facility] 07/16/2022 7:42 AM EDT 07/16/2022 7:45 AM EDT [facility] External Provider LAB BLO OD ORDERABLES Final Result Performing Organization Address [facility] de Phone Number [facility] [address] [place] [phone] * (ABNORMAL) Basic Metabolic Panel (07/16/2022 7:42 AM EDT) Sodium 137 135 - 145 mmol/L [facility] Potassium 4.4 3.3 - 5.1 mmol/L [facility] Comment:Slight Hemolysis Chloride 106 96 - 108 mmol/L [facility] Carbon Dioxide 19(L) 22 - 29 mmol/L [facility] Anion Gap 16 12 - 20 [facility] Urea Nitrogen (BUN) 11 9 - 16 mg/dL [facility] Creatinine, Serum 0.80 0.5 - 1.4 mg/dL [facility] Creatinine Clr Calc Pharmacy 91.5 [facility] Comment:Provided height and weight: 157.48 cm,89.811 kg.eGFR (calculated from the MDRD study equation) and eCrCl(calculated from the Cockcroft-Gault equation) are based ondifferent parameters and may not yield comparable results.If eCrCl result is absurd, please check patient'sheight/weight. Estimated Glomerular Filt Rate >60 [facility] Comment:NOTE: For -Am erican individuals, multiply the result by 1.210.Chronic Kidney Disease: Estimated GFR < 60 mL/min/1.03k3Iqfggt Kidney Disease: Estimated GFR < 15 mL/min/1.73m2 Glucose 138(H) 60 - 115 mg/dL [facility] Calcium 9.4 8.4 - 10.2 mg/dL [facility] 07/16/2022 7:42 AM EDT 07/16/2022 7:45 AM EDT [facility] External Provider LAB BLO OD ORDERABLES Final Result [facility] [address] [place] [phone] * Hepatic Function Panel (07/16/2022 7:42 AM EDT) Bilirubin, Total 0.4 0.0 - 1.0 mg/dL [facility] Bilirubin, Direct 0.1 0.0 - 0.5 mg/dL [facility] Comment:Slight Hemolysis Aspartate Amino Transferase 21 5 - 31 U/L [facility] Comment:Slight Hemolysis Alanine Aminotransferase 22 0 - 31 U/L [facility] Total Protein 7.3 6.5 - 8.0 g/dL [facility] Albumin Level 4.2 3.5 - 5.0 g/dL [facility] Alkaline Phosphatase 64 39 - 117 U/L [facility] 07/16/2022 7:42 AM EDT 07/16/2022 7:45 AM EDT [facility] External Provider LAB BLO OD ORDERABLES Final Result [facility] [address] [place] [address] [phone] * (ABNORMAL) CBC auto differential (07/16/2022 7:42 AM EDT) White Blood Count 15.8(H) 4.8 - 10.8 X10*3/uL [facility] Red Blood Count 4.63 4.20 - 5.50 X10*6/uL [facility] Hemoglobin 12.9 12.0 - 16.0 g/dl [facility] Hematocrit 38.4 37.0 - 47.0 % [facility] Mean Corpuscular Volume 82.9 80.0 - 98.0 fL [facility] Mean Corpuscular Hemoglobin 27.9 27.0 - 33.0 pg [facility] Mean Corpuscular HGB Conc 33.6 31.0 - 35.0 g/dl [facility] Red Cell Distribution Width 14.4 11.0 - 16.0 % [facility] Platelet Count 308 160 - 400 X10*3/uL [facility] Mean Platelet Volume 9.6 9.4 - 12.3 fL [facility] Neutrophils Percent Auto 76.3(H) 45 - 73 % [facility] Imm Gran Pct Auto 0.4 0.0 - 0.4 % [facility] Lymphocytes Percent Auto 15.5(L) 20 - 40 % [facility] Monocytes Percent Auto 7.2 2 - 11 % [facility] Eosinophils Percent Auto 0.1 0 - 4 % [facility] Basophils Percent Auto 0.5 0 - 2 % [facility] NRBC Pct Auto 0.0 0.0 - 0.2 /100WBC [facility] Neutrophils Absolute Auto 12.1(H) 2.0 - 8.3 x10*3/uL [facility] Imm Gran Abs Auto 0.06(H) 0.00 - 0.03 X10*3/uL [facility] Lymphocytes Absolute Auto 2.5 1.2 - 4.9 X10*3/uL [facility] Monocytes Absolute Auto 1.1 0.1 - 1.2 X10*3/uL [facility] Eosinophils Absolute Auto 0.0 0.0 - 0.4 X10*3/uL [facility] Basophils Absolute Auto 0.1 0.0 - 0.2 X10*3/uL [facility] NRBC Abs Auto 0.000 0.0 - 0.012 X10*3/uL [facility] 07/16/2022 7:42 AM EDT 07/16/2022 7:45 AM EDT us [facility] External Provider LAB BLO OD ORDERABLES Final Result [facility] [address] [place] [phone] [phone] documented in this encounter Visit Diagnoses Not on filedocumented in this encounter Care Teams Decal Applier Relationship Specialty Start Date End Date Alex Sheriff MD [address] [place] [phone] PCP - General Internal Medicine 02/25/13 documented as of this encounter
--- OUTSIDE RECORDS SUMMARY | 2024-04-23 16:46 | XMS_ITS | Encounter Summary ---
Author Organization [employer] Address [address] [facility] [address] [place] [address] Care Team Providers Care Professor Of Religion Name Role Phone Alex Sheriff MD Primary Care Provider [phone] Reason for Visit * Reason Comments Med Refill Encounter Details Date Type Department Care Team ([facility] st Contact Info) Description 04/21/2024 Refill [facility]S [address] [place], [place] [phone] Alex Sheriff MD [address] [place] [address] Gastroesophageal reflux disease without esophagitis Social History Tobacco Use Types Packs/Day Years [...] as of this encounter Visit Diagnoses Diagnosis Gastroesophageal reflux disease without esophagitis Esophageal reflux documented in this encounter Additional Health Concerns Assessment Noted Time PHQ-9 Depression Total Score: 0 04/08/19 25 9:21 AM EST documented as of this encounter Care Teams Professor Of Religion Relationship Specialty Start Date End Date Alex Sheriff MD [address] [place] [phone] PCP - General Internal Medicine 02/25/13 documented as of this encounter
--- OUTSIDE RECORDS SUMMARY | 2024-04-23 16:46 | XMS_ITS | Encounter Summary ---
Author Organization [employer] Address [address] [place] [address] [address] [place] [address] Care Team Providers Care Elementary Tutor Name Role Phone Alex Sheriff MD Primary Care Provider [phone] Encounter Details Date Type Department Care Team ([facility] st Contact Info) Description 03/28/2022 Abstract [facility] MED & PEDS [address] [place] [address] Alex Sheriff MD [address] [place] [address] Social History Tobacco Use Types Packs/Day Years [...] suspected to have Coronavirus/COVID-19? No / Unsure 03/27/2022 11:12 AM EST documented as of this encounter Plan of Treatment Not on file documented as of this encounter Visit Diagnoses Not on filedocumented in this encounter Care Teams Elementary Tutor Relationship Specialty Start Date End Date Alex Sheriff MD [address] [place] [address] PCP - General Internal Medicine 02/25/13 documented as of this encounter
--- OUTSIDE RECORDS SUMMARY | 2024-04-23 16:46 | XMS_ITS | Encounter Summary ---
Author Organization [employer] Address [address] [place] [address] [address] [place] [address] Care Team Providers Care Supervisor Byproducts Name Role Phone Alex Sheriff MD Primary Care Provider [phone] Encounter Details Date Type Department Care Team ([facility] st Contact Info) Description 07/13/2022 Abstract [facility] & PEDS [address] [place] [address] Alex Sheriff MD [address] [place] [address] Social History Tobacco Use Types Packs/Day Years [...] on filedocumented in this encounter Care Teams Supervisor Byproducts Relationship Specialty Start Date End Date Alex Sheriff MD [address] [place] [address] PCP - General Internal Medicine 02/25/13 documented as of this encounter
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
--- OUTSIDE RECORDS SUMMARY | 2024-04-23 16:46 | XMS_ITS | Encounter Summary ---
Author Organization [employer] Address [address] [facility] [address] [place] [address] Care Team Providers Care Board Layer Name Role Phone Alex Sheriff MD Primary Care Provider [phone] Encounter Details Date Type Department Care Team ([facility] st Contact Info) Description 09/20/2023 Orders Only [facility] [address] [place], [place] [id number] Alex Sheriff MD [address] [place] [address] Social History Tobacco Use Types Packs/Day Years [...] on filedocumented in this encounter Care Teams Board Layer Relationship Specialty Start Date End Date Alex Sheriff MD [address] [place] [id number] PCP - General Internal Medicine 02/25/13 documented as of this encounter
[2024-04-24 09:11] LABS: HIV AB/AG Nonreactive (Nonreactive); HIV Num 1 0.04 S/CO (0.00-0.99); ~HepC Num1 0.27 S/CO (0.00-0.79); ~Hepatitis C Antibody Nonreactive (Nonreactive)
== END 2024-04-23 13:47 | disposition home or self-care (01) ==
LOC: HO.CHCLDS 13:46
PROVIDERS: Visit Provider Internal Medicine
DX: Z11.3 Encounter for screening for infections with a predominantly sexual mode of transmission (principal)
CPT/HCPCS: 36415; 86803; 87389

== ENCOUNTER 2024-05-21 15:34 | Outpatient (AMB) | payer OTHER, SELFPAY ==
--- NOTE | 2024-05-21 12:13 | A.OFFVIS_ITS ---
Intake Visit Reasons: Telephone followup Intake Note: Patient is present for a follow up Urology Med: Vitamin B Antibiotic Allergy: None Blood Thinner: None Package Sealer Machine Required: No Accompanied by: Self / Same As Patient Allergies morphine [MORPHINE] Allergy (Intermediate, Verified 07/21/24 12:15) PAPLITATIONS, increased heart rate HPI Comments Details: 05/21/24-- History of Present Illness The patient is a 49-year-old female presenting with nephrolithiasis. Patient completed 24 hr urine and urine was sent to the lab for analysis, I discussed that the test lab repoted that the results could not be completed due lack of preservative in the sample. However, the patient asserts adherence to the collection instructions, including using the provided preservative and successfully completing the 24-hour urine sample collection. Discussion concentrated on the management of her kidney stones following the ultrasound evaluation which showed no significant stone burden. The patient's condition involves calcium oxalate stone formation, and she was advised to increase fluid intake and incorporate lemon concentrate to naturally inhibit stone development. Results - Tests and Diagnostics: -24 hr urine - LithoLink reported-unable to process due to absence of preservative in the sample. - Ultrasound: No significant stone burden identified. - Stone type identified: Calcium oxalate. 03/02/24--Tank is followed for kidney stones in his here for follow-up. I have reviewed follow-up renal ultrasound 2 mm stone in right kidney, 2 mm stone in left kidney. Subcentermeter echogenic focus may be angiomyolipoma. Hydronephrosis has resolved. The patient completed the 24 hour urine a few days ago results are pending.I have discussed diet modification to decrease risk of forming more kidney stones. I have discussed low oxalate diet and specific foods to avoid including certain green leafy vegetables, chocalate, nuts, tea, beets, rubarb; low sodium, decreased use of animal protein and the importance of hydration drinking up to 2-2.5 liters of fluids and use of adding lemon to water to increase citrate in the diet. A pamphlet is also provided today. 30 minutes spent in review of records pertaining to this visit and including [id number] discussion with the patient and documentation of this visit. 01/02/2024 -Tank is a pleasant female. She is a patient of . She is seen for the following urologic conditions - nephrolithiasis Here for cystoscopy stent removal, Follow-up 2 months with renal ultrasound and 24 hour urine collection Recurrent nephrolithiasis 12/11 - left distal stone with laser lithotripsy presentation through emergency room - Stone composition - Calcium Oxalate Dihydrate (Weddellite) 20%Calcium Oxalate Monohydrate (Whewellite) 60%Carbonate Apatite (Dahllite) 20% 08/23/22-- The patient is s/p cystoscopy, right ureteroscopy, laser lithotripsy, ureteral stone and stent exchange on 08/07/22 for right ureteral stone. The patient was initially evaluated in the hospital on 07/16/22 and right ureteral was placed on 07/17/22. CAT scan?07/16/22-- noted obstructing right ureteral stones along with left kidney stone. Evaluation today-- Blood: 200 Tereso/uL, leukocytes: 15 Teodoro/uL. 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 Review of Systems Const All systems reviewed & are unremarkable except as noted in HPI and below Reports no additional complaints Eyes Reports no additional complaints ENT Reports no additional complaints Card Reports no additional complaints Resp Reports no additional complaints GI Reports no additional complaints Reports as per HPI Musc Reports no additional complaints Skin/Breast Reports system reviewed and no additional complaints, except as documented Neuro Reports no additional complaints Psych Reports no additional complaints Endo Reports no additional complaints Ronni/Lymph Reports no additional complaints Aller/Immun Reports no additional complaints Telehealth Telehealth Telehealth Platform: Telephone Location of provider rendering services: practice address Location of patient: address on file Patient Identification confirmed using: Name, : Yes Telehealth method: voice only Patient verbally consented to treatment: Yes Patient verbally consented to billing insurance company: Yes Patient informed of any privacy concerns related to visit: Yes Results Reviewed Results Reviewed: Date of Service: 02/21/24 EXAMINATION: US KIDNEY BILATERAL HISTORY: N20.1 - Calculus of ureter TECHNIQUE: Real-time grayscale ultrasound imaging of the kidneys was performed and images were reviewed. COMPARISON: Correlation is made with a CT of the abdomen dated 12/18/2023. FINDINGS: Right kidney: The right kidney measures 12.3 x 5.0 x 5.7 cm. Renal parenchymal echotexture and thickness are normal. There is a 2.3 x 1.4 x 1.9 cm cyst in the interpolar region. A 9 x 5 x 9 mm echogenic focus is noted at the upper pole consistent with an angiomyolipoma. There is a 2 mm nonobstructing calculus in the interpolar region. There is no hydronephrosis. Left Kidney: The left kidney measures 11.2 x 5.3 x 4.2 cm. Renal parenchymal echotexture and thickness are normal. There are no masses. There is a 2 mm nonobstructing calculus in the interpolar region. There is no hydronephrosis. IMPRESSION: Bilateral nephrolithiasis as described. There is no hydronephrosis. 9 mm right renal angiomyolipoma. Date of Service: 07/16/22 EXAMINATION: CT ABDOMEN AND PELVIS WITHOUT CONTRAST? CLINICAL INFORMATION: Right flank pain, dysuria.? COMPARISON: CT abdomen 04/16/2016 . Ultrasound abdomen 07/25/2021 TECHNIQUE: Multidetector volumetric imaging was performed from the superior aspect of the liver through the pubic symphysis. Sagittal and coronal reformatted images were obtained on the technologist's workstation.? This CT examination was performed using dose optimization techniques as appropriate, variously including the following: *Automated exposure control *Adjustment of mA and/or kV according to patient size (this includes techniques or standardized protocols for targeted exams where dose is matched to indication/reason for exam; i.e. extremities or head) *Use of iterative reconstruction technique DLP: 681 mGy-cm FINDINGS: LUNG BASES: The visualized lung bases are unremarkable.? LIVER, GALLBLADDER, AND BILIARY TREE: The liver is normal in shape, and attenuation. Right lobe spans 19.8 cm craniocaudal. No focal hepatic lesion or biliary ductal dilatation is present. The gallbladder is unremarkable with no evidence of radiopaque gallstones, gallbladder wall thickening, or obvious pericholecystic inflammatory changes.? PANCREAS: Unremarkable.? SPLEEN: Unremarkable.? ADRENAL GLANDS: Unremarkable.? KIDNEYS AND URETERS: Severe right hydroureteronephrosis. There is a 12 mm calculus in the distal right ureter. There are 2 small, 2 mm sized calcifications more distally,, which could represent additional small ureteral calculi versus subjacent calcifications. No renal calculi identified. Mild right perinephric stranding. Left renal calculi. 2 mm nonobstructing calculus upper pole; 10 mm obstructing calculus in the lower pole. BLADDER: Bladder is partially distended. Urinary bladder wall thickening, could be related to lack of distention versus cystitis.? GASTROINTESTINAL TRACT: Nondistended stomach. No small or large bowel obstruction. Colonic diverticulosis without evidence of diverticulitis. Normal appendix. No free fluid. No free air.? ABDOMINAL WALL: No significant hernia is appreciated.? LYMPH NODES: No pathologically enlarged nodes are identified. VASCULAR: Scattered atherosclerotic vascular calcification. PELVIC VISCERA: Anteverted uterus. 3.3 cm left ovarian cyst/prominent follicle. Hounsfield measurements 12. OSSEOUS STRUCTURES: Unremarkable.? IMPRESSION: 1. Severe right hydroureteronephrosis. 12 mm calculus in the distal right ureter. Question additional small calculi versus subjacent calcifications distal to this. 2. Left renal nonobstructing calculi. 3. Urinary bladder wall prominence, could be due to lack of distention versus cystitis. 4. Colonic diverticulosis without diverticulitis. 5. Hepatomegaly. 6. Additional findings and details as above. ? ? Assessment & Plan Assessment & Plan (1) Bilateral kidney stones: Code(s): N20.0 - Calculus of kidney Category: Medical Plan Plan - Increase your fluid intake to 48-64 ounces daily, primarily water. - Add 4 ounces of lemon concentrate to your daily fluids. - Limit dietary salt intake. - Follow up with an ultrasound in one year. - Contact the office if you experience new or worsening symptoms. Patient Instructions: The patient had an opportunity to ask questions regarding treatment plan. The patient expressed understanding and agreement with the above treatment plan. The patient is aware they should contact our office by phone for worsening of their current condition or the appearance of new symptoms. Compliance is encouraged with any medications and followup testing that is ordered. It is a privilege to be allowed the opportunity to participate in the urologic care of your patient. If you have any questions or concerns regarding treatment for the above conditions please do not hesitate to contact me. The office telephone contact is [phone]. This note is constructed in part using voice recognition software. While every effort has been made to ensure accuracy behavioral health counselor errors may have been included. Yours sincerely, Matteo Littlejohn MD Scribe Plan - Not visible on output: Patient was informed and verbally consented to the use of an ambient scribe for clinic note documentation during this visit. Coding Level of Care Code Tele Est Pt Level 3 (07750) Diagnoses Bilateral kidney stones N20.0
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
--- OUTSIDE RECORDS SUMMARY | 2024-05-21 16:54 | XMS_ITS | Clinical Summary ---
Author Organization [facility] Facility Address [address] [place] [id number] Care Team Providers Care Soft Work Wrapper Examiner Name Role Phone Alex Sheriff MD Primary Care Provider [phone] Allergies Active Allergy Reactions Criticality Noted Date Comments Morphine And Codeine 04/14/2020 Medications lisinopril (PRINIVIL,ZESTR IL) 40 MG tabletIndicatio ns:Hypertension Take 1 tablet by mouth 1 (one) time each day Active dilTIAZem (TIAZAC) 300 MG 24 hr capsuleIndicati ons:Hypertensio n Take 300 mg by mouth 1 (one) time each day Active butalbital-acet aminophen-caffe ine-codeine (FIORICET WITH CODEINE) 90-455-65-30 MG per capsuleIndicati ons:Hypertensio n Take 1 [...] age to complete this topic Insurance [address] [place] [id number] [facility] ([id number]) DONNA EGAN [id number] [facility] ([id number]) DONNA EGAN [id number] Care Teams Soft Work Wrapper Examiner Relationship Specialty Start Date End Date Alex Sheriff MD PCP - General 02/29/20
== END 2024-05-21 15:58 | disposition home or self-care (01) ==
LOC: HO.HUSH 15:34
PROVIDERS: PCP Internal Medicine; Visit Provider Urology
DX: N20.0 Calculus of kidney (principal)
CPT/HCPCS: 99213

== ENCOUNTER → 2024-05-21 15:34 | Outpatient (BNVA) | payer OTHER, SELFPAY | PROVIDERS: PCP Internal Medicine; Visit Provider Urology ==

== ENCOUNTER 2024-07-07 17:44 | Emergency (ER) | payer OTHER, SELFPAY ==
--- NOTE | ~2024-07-07 | US_ITS ---
CLINICAL HISTORY: vaginal bleeding x1 mo US pelvis transvaginal and transabdominal Comparison: No prior study provided. Findings: Uterine body measures 4.6 x 5.9 x 8.5 cm. Two small suspected intramural uterine fibroids measuring up to 1.5 cm. Mild endometrial thickening measuring 2.2 cm maximum double layer thickness. Right ovary not visualized. Left ovary normal. IMPRESSION: 1. Nonvisualized right ovary. 2. Small uterine fibroids and mild endometrial thickening. This document has been electronically signed by: Home Jay MD on 07/07/2024 19:41:47
[2024-07-07 18:01] VITALS: BP 167/79; PULSE 77; RESP 18; TEMP 36.6; O2SAT 98; BMI 36.4
--- NOTE | 2024-07-07 18:02 | ED_ITS ---
HPI - General Adult General Chief complaint: Vaginal Bleeding Stated complaint: Vaginal bleeding Time Seen by Provider: 07/07/24 19:57 Source: patient Mode of arrival: ambulatory Limitations: no limitations History of Present Illness ED Provider: sunil willis np HPI narrative: Patient is a 49-year-old female who presents emergency department for evaluation. She reports that for the month of March and April in 2024 she did not have a menstrual cycle. She began having vaginal bleeding for, and bleeding has been pretty much constant since then. She might have a day here and there where she does not have any vaginal bleeding. Initial nursing triage states that she is changing her sanitary napkins every 15 minutes however the every 15 minute faby they are not saturated she states she just does not like to feel any of the blood that is present. She has been awaiting a referral from her primary care doctor to see diamond powder mixer for routine exam/Pap smear. Does not recall the date of her last Pap smear, denies any known history of abnormal once. She states that she is experiencing lower abdominal cramping intermittent dizziness. She called the office today and was advised to come to emergency department for evaluation given her symptoms in the prolonged bleeding she has been experiencing. She denies fevers, chills, nausea, vomiting, back pain, otherwise abnormal vaginal discharge, urinary frequency/urgency/hesitancy, hematuria, dysuria. Denies concern for sexually transmitted infections. Related Data Home Medications ?Medication ?Instructions ?Recorded ?Confirmed diltiazem HCl 300 mg 300 mg PO DAILY 07/16/22 01/02/24 capsule,extended release 24 hr lisinopril 40 mg tablet 40 mg PO DAILY 07/16/22 01/02/24 omeprazole 20 mg capsule,delayed 20 mg PO DAILY@0630 07/16/22 01/02/24 release cyclobenzaprine 10 mg tablet 10 mg PO TID PRN Muscle Pain 12/15/23 01/02/24 fexofenadine 180 mg tablet 180 mg PO DAILY 12/15/23 01/02/24 metoprolol succinate 100 mg 50 mg PO DAILY 12/15/23 01/02/24 tablet,extended release 24 hr paroxetine HCl 10 mg tablet 10 mg PO DAILY 12/15/23 01/02/24 vitamin B complex 1 cap PO DAILY 12/15/23 01/02/24 semaglutide (weight loss) 0.25 0.25 mg subcut QWEEK 12/19/23 01/02/24 mg/0.5 mL subcutaneous pen injector (Zulmavy) Previous Rx's ?Medication ?Instructions ?Recorded cefuroxime axetil 500 mg tablet 500 mg PO BID #20 tabs 12/17/23 Allergies Allergy/AdvReac Type Severity Reaction Status Date / Time morphine [MORPHINE] Allergy Intermediate PAPLITATIONS, Verified 07/07/24 18:03 increased heart rate Review of Systems 2 Review of Systems: Yes all other systems are reviewed and are negative [facility] Past Medical History Attestation statement: The following information was validated with the patient. Source: old records reviewed Medical History Post-op pain SVT (supraventricular tachycardia) HTN (hypertension) Surgical History Hx of cystoscopy Social History Social History Household Members: Spouse Housing: Apartment Are you a primary career center director to a significant other at home: No Do you presently have visiting nurse or other home services: No Alcohol intake: never Patient Tobacco Use Status: Former Tobacco user Tobacco use type: Cigarette Years Smoked: 11 Second Hand Smoke Exposure: No Advance Directives: Yes Advance Directives on File: Yes Advance Directives Date on File: 12/23/23 service: No Current occupational status: unemployed 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 No acute distress.?Normal affect. CVS: Heart sounds normal. Normal heart rate and rhythm.? Pulses normal.?? Respiratory: No respiratory distress.? Lung sounds clear to auscultation bilaterally?? Abdomen: Soft and non-tender. Normoactive bowel sounds. No pulsatile mass.??No CVAT. Genitourinary:? Declines internal pelvic examination Skin: Skin warm and dry.? Normal skin color.? Extremities: No lower extremity edema.? Neuro: Moves all extremities spontaneously. Sensation intact bilaterally. Ambulates with normal steady gait. Course Course Course Narrative: 07/07/24 180 DONNA Murillo This is a Rapid Medical Examination (RME) performed by Stefani Pereira PA-C in triage. Full HPI, ROS, assessment and treatment plan per primary provider in the Main ED. Hx: 49 yo F here for eval of vaginal bleeding since 06/02/24. prior to this did not have her period for 2 months. reports changing her pad every 15 minutes. assoc abd cramping. no dizziness. PE/vitals: well appearing, no pallor Plan: labs, US Medical Decision Making Medical Decision Making [facility] Narrative: Patient is a 41-year-old female with past medical history of nephrolithiasis, hypertension, SVT presenting for evaluation of abnormal uterine bleeding as per HPI. Bleeding has been persistent for the past 2 months, intermittent dizziness in the abdominal cramping which prompted her PCPs office for advised her to come to emergency department for evaluation. On workup obtained prior to my assumption of care pelvic ultrasound revealing small uterine fibroids and mild thickening of the endometrium. Her abdominal examination is benign. She denies an internal pelvic examination. CBC is without leukocytosis anemia or thrombocytopenia. No electrolyte derangement. No ALEJANDRO. LFTs unremarkable. HCG is negative. Urinalysis with presence of blood, no evidence to suggest urinary tract infection. No CVAT to suggest renal colic secondary to calculi or pyelonephritis. HCG is negative, not consistent with ectopic . No unilateral abdominal pain or tenderness on examination, denies concern for sexually transmitted infection, denies history of ovarian cysts lower suspicion for tubo-ovarian abscess/ PID, ovarian torsion, ruptured ovarian cyst. Reviewed potential for symptoms secondary to perimenopausal phase however did advise outpatient follow-up with OBGYN for further evaluation, routine Pap smear and/or further evaluation as they see fit. Discussed strict return precautions. All questions answered. Stable for discharge Differential Diagnosis Differential Diagnoses: The differential diagnosis associated with the presentation includes (See narrative above) Admission/Observation Consideration of admission/observation: Escalation of care including admission/observation considered (See narrative above) Lab Data [facility] Lab Attestation statement: I reviewed the patient's lab results. 07/07/24 18:12 07/07/24 18:12 Labs: Lab Results 07/07/24 07/07/24 Range/Units 18:12 18:51 WBC 9.2 (4.8-10.8) X10*3/uL RBC 4.62 (4.20-5.50) X10*6/uL Hgb 12.9 (12.0-16.0) g/dl Hct 37.6 (37.0-47.0) % MCV 81.4 (80.0-98.0) fL MCH 27.9 (27.0-33.0) pg MCHC 34.3 (31.0-35.0) g/dl RDW 14.7 (11.0-16.0) % Plt Count 261 (160-400) X10*3/uL MPV 9.6 (9.4-12.3) fL Immature Gran % (Auto) 0.1 (0.0-0.4) % Neut % (Auto) 55.2 (45-73) % Lymph % (Auto) 30.1 (20-40) % [place] % (Auto) 7.7 (2-11) % Eos % (Auto) 6.1 H (0-4) % Baso % (Auto) 0.8 (0-2) % Lymph # (Auto) 2.8 (1.2-4.9) X10*3/uL [place] # (Auto) 0.7 (0.1-1.2) X10*3/uL Eos # (Auto) 0.6 H (0.0-0.4) X10*3/uL Baso # (Auto) 0.1 (0.0-0.2) X10*3/uL Abs Immat Gran (auto) 0.01 (0.00-0.03) X10*3/uL Absolute Neuts (auto) 5.1 (2.0-8.3) x10*3/uL Absolute Nucleated RBC 0.000 (0.0-0.012) X10*3/uL Nucleated RBC % (auto) 0.0 (0.0-0.2) /100WBC Sodium 140 (135-145) mmol/L Potassium 4.0 (3.3-5.1) mmol/L Chloride 107 (96-108) mmol/L Carbon Dioxide 23 (22-29) mmol/L Anion Gap 14 (12-20) BUN 10 (9-16) mg/dL Creatinine 0.84 (0.5-1.4) mg/dL Estim Creat Clear Calc 85.5 Estimated GFR > 60 Random Glucose 101 (60-115) mg/dL Calcium 9.3 (8.4-10.2) mg/dL Magnesium 2.0 (1.6-2.6) mg/dL Total Bilirubin 0.2 (0.0-1.0) mg/dL AST 28 (5-31) U/L ALT 29 (0-31) U/L Alkaline Phosphatase 78 (39-117) U/L Total Protein 7.1 (6.5-8.0) g/dL Albumin 4.3 (3.5-5.0) g/dL Beta HCG, Quant < 2 mIU/mL Urine Color [place] A Urine Appearance Clear Urine pH 6.5 (5.0-9.0) Ur Specific [place] 1.010 (1.005-1.025) Urine Protein Negative (Neg-Trace) mg/dL Urine Glucose (UA) Negative (Negative) mg/dL Urine Ketones Negative (Negative) mg/dL Urine Blood Large (3+) H (Negative) Urine Nitrite Negative (Negative) Ur Leukocyte Esterase Trace H (Negative) Urine RBC >20 H (0-2) /HPF Urine WBC 0-5 (0-5) /HPF Ur Squamous Epith Cells 0-2 (0-2) /HPF Urine Bacteria None Seen (None Seen) Hyaline Casts 0-2 (0-2) /LPF Independent Interpretation I performed an independent interpretation of an: Ultrasound Radiology Impression Discussion of test interpretation with radiology: I have reviewed the radiologist's reading. Radiologist Impression: US pelvis transvaginal and transabdominal Comparison: No prior study provided. Findings: Uterine body measures 4.6 x 5.9 x 8.5 cm. Two small suspected intramural uterine fibroids measuring up to 1.5 cm. Mild endometrial thickening measuring 2.2 cm maximum double layer thickness. Right ovary not visualized. Left ovary normal. IMPRESSION: 1. Nonvisualized right ovary. 2. Small uterine fibroids and mild endometrial thickening. Independent Historian Clinical information obtained from an independent historian. History obtained from or confirmed by: Spouse External Record Review External record reviewed: Outpatient record Chronic Conditions Patient?s care impacted by: Other (See narrative above) Discharge Plan Discharge Clinical Impression: Abnormal uterine bleeding (AUB) Patient Disposition: Home, Self-Care Instructions: Abnormal (Dysfunctional) Uterine Bleeding (ED) Additional Instructions: As discussed, your ultrasound today reveals mild thickening of the endometrium as well as small fibroids. I suspect that this is likely secondary to perimenopause as we discussed. Contact your primary care doctor's office tomorrow to arrange for increase/follow-up with diamond powder mixer. You were seen in the Emergency Department today for abnormal vaginal bleeding. Your blood counts were stable. Do not take aspirin containing products. You need to follow up with your primary care doctor or OBGYN. Please return for worsening symptoms such as pain, dizziness, fainting, bleeding this is much heavier than a period and you are having large clots bigger than a golf ball. Please see list of OGBYN providers below if you do not have one. OBGYN and Midwifery [facility] [address] [place], [place] [id number] [facility] [employer] [facility] [address] [phone] [facility] [address] [phone] OBGYN and Midwifery [facility] [address] [phone] [address] [facility] [place] [phone] Prescriptions: No Action cyclobenzaprine 10 mg tablet 10 mg PO TID PRN (Reason: Muscle Pain) metoprolol succinate 100 mg tablet extended release 24 hr 50 mg PO DAILY fexofenadine 180 mg tablet 180 mg PO DAILY vitamin B complex Capsule 1 cap PO DAILY paroxetine HCl 10 mg tablet 10 mg PO DAILY cefuroxime axetil 500 mg tablet 500 mg PO BID Qty: 20 0RF omeprazole 20 mg Capsule,Delayed Release(Dr/Ec) 20 mg PO DAILY@0630 lisinopril 40 mg Tablet 40 mg PO DAILY diltiazem HCl 300 mg Capsule,Extended Release 24hr 300 mg PO DAILY Wegovy 0.25 mg/0.5 mL pen injector 0.25 mg subcut QWEEK Rx Instructions: HAS NOT STARTED YET Referrals: Alex Sheriff MD [Primary Care Provider] - Print Language: Frisian
[2024-07-07 18:15] LABS: MANUAL DIFF FLAG NO
[2024-07-07 18:16] LABS: Basophils Absolute Auto 0.1 X10*3/uL (0.0-0.2); Basophils Percent Auto 0.8 % (0-2); Eosinophils Absolute Auto 0.6 X10*3/uL (0.0-0.4); Eosinophils Percent Auto 6.1 % (0-4); Hematocrit 37.6 % (37.0-47.0); Hemoglobin 12.9 g/dl (12.0-16.0); Imm Gran Abs Auto 0.01 X10*3/uL (0.00-0.03); Imm Gran Pct Auto 0.1 % (0.0-0.4); Lymphocytes Absolute Auto 2.8 X10*3/uL (1.2-4.9); Lymphocytes Percent Auto 30.1 % (20-40); Mean Corpuscular HGB Conc 34.3 g/dl (31.0-35.0); Mean Corpuscular Hemoglobin 27.9 pg (27.0-33.0); Mean Corpuscular Volume 81.4 fL (80.0-98.0); Mean Platelet Volume 9.6 fL (9.4-12.3); Monocytes Absolute Auto 0.7 X10*3/uL (0.1-1.2); Monocytes Percent Auto 7.7 % (2-11); Neutrophils Absolute Auto 5.1 x10*3/uL (2.0-8.3); Neutrophils Percent Auto 55.2 % (45-73); Platelet Count 261 X10*3/uL (160-400); Red Blood Count 4.62 X10*6/uL (4.20-5.50); Red Cell Distribution Width 14.7 % (11.0-16.0); White Blood Count 9.2 X10*3/uL (4.8-10.8)
[2024-07-07 18:44] LABS: Alanine Aminotransferase 29 U/L (0-31); Albumin Level 4.3 g/dL (3.5-5.0); Alkaline Phosphatase 78 U/L (39-117); Anion Gap 14 (12-20); Aspartate Amino Transferase 28 U/L (5-31); Bilirubin Total 0.2 mg/dL (0.0-1.0); Blood Urea Nitrogen 10 mg/dL (9-16); Calcium 9.3 mg/dL (8.4-10.2); Carbon Dioxide 23 mmol/L (22-29); Chloride 107 mmol/L (96-108); Creatinine Clr Calc Pharmacy 85.5; Estimated Glomerular Filt Rate > 60; Glucose Random 101 mg/dL (60-115); HCG Quantitative < 2 mIU/mL; Sodium 140 mmol/L (135-145); Total Protein 7.1 g/dL (6.5-8.0)
[2024-07-07 19:09] LABS: Appearance Urine Clear; Color Urine Orange; Glucose Urine UA Negative (Negative); Leukocyte Esterase Urine Trace (Negative); Nitrite Urine Negative (Negative); PH 6.5 (5.0-9.0); UMIC TRIGGER UACC YES; Urine Blood Large (3+) (Negative); Urine Ketones Negative (Negative); Urine Protein Negative (Neg-Trace)
[2024-07-07 19:12] LABS: Bacteria Urine None Seen (None Seen); Hyaline Casts Urine 0-2 /LPF (0-2); RBC Urine >20 /HPF (0-2); Squamous Epithelial Cell Urine 0-2 /HPF (0-2); WBC Urine 0-5 /HPF (0-5)
--- OUTSIDE RECORDS SUMMARY | 2024-07-07 20:03 | XMS_ITS | Encounter Summary ---
Author Organization [employer] Address [address] [facility] [address] [place] [address] Care Team Providers Care Knotting Machine Operator Name Role Phone Alex Sheriff MD Primary Care Provider [phone] Reason for Visit * Reason Onset Date Comments Nurse Triage 05/20/2023 Encounter Details Date Type Department Care Team ([facility] st Contact Info) Description 05/20/2023 Telephone [facility] MED[facility]INE [address] [place] [address] Alex Sheriff MD [address] [place] [address] Nurse Triage Social History Tobacco Use Types [...] documented in this encounter Plan of Treatment Upcoming Encounters Date Type Department Care Team (Late st Contact Info) Description 07/28/2024 1:30 PM EDT Office Visit [facility] [address] [place] [address] Alex Sheriff MD [address] [place] [address] documented as of this encounter Visit Diagnoses Not on filedocumented in this encounter Care Teams Knotting Machine Operator Relationship Specialty Start Date End Date Alex Sheriff MD [address] [place] [address] PCP - General Internal Medicine 02/25/13 documented as of this encounter
--- OUTSIDE RECORDS SUMMARY | 2024-07-07 20:03 | XMS_ITS | Clinical Summary ---
Author Organization [facility] Address [address] [place] [address], [place] [address] Care Team Providers Care Paper Baling Machine Operator Name Role Phone Alex Sheriff MD Primary Care Provider [phone] Allergies Active Allergy Reactions Criticality Noted Date Comments Morphine And Codeine 04/14/2020 Medications lisinopril (PRINIVIL,ZESTR IL) 40 MG tabletIndicatio ns:Hypertension Take 1 tablet by mouth 1 (one) time each day Active dilTIAZem (TIAZAC) 300 MG 24 hr capsuleIndicati ons:Hypertensio n Take 300 mg by mouth 1 (one) time each day Active butalbital-acet aminophen-caffe ine-codeine (FIORICET WITH CODEINE) 62-727-88-30 MG per capsuleIndicati ons:Hypertensio n Take 1 [...] - 19+ 3-dose series) 05/10/1995 Influenza Vaccine (Season Ended) 2024 Pneumococcal Vaccine: Peds ( 0 to 5 Years) and At-Risk Patients (6 to 49 Years) Aged Out No longer eligible b ased on patient's age to complete this topic Insurance [address] [place] [id number] [facility] ([id number]) DONNA EGAN [id number] [facility] ([id number]) DONNA EGAN [id number] Care Teams Paper Baling Machine Operator Relationship Specialty Start Date End Date Alex Sheriff MD PCP - General 02/29/20
--- OUTSIDE RECORDS SUMMARY | 2024-07-07 20:03 | XMS_ITS | Encounter Summary ---
Author Organization [employer] Address [address] [facility] 7 [place] [address] Care Team Providers Care Mimeograph Operator Name Role Phone Alex Sheriff MD Primary Care Provider [phone] Reason for Visit * Reason Onset Date Comments Nurse Triage 07/07/2024 Encounter Details Date Type Department Care Team ([facility] st Contact Info) Description 07/07/2024 Telephone [facility] MED[facility]INE [address] [place] [address] Alex Sheriff MD [address] [place] [address] Nurse Triage Social History Tobacco Use Types [...] encounter Miscellaneous Notes * Telephone Encounter - Rach Meng RN - 07/07/2024 4:55 PM EDT Call returned to Tank Santiago to triage below. Reports having unusual vaginal bleeding since 06/02/24. Per pt was having large blood clots at the beginning of the bleeding. Per pt not currently having large clots. Pt endorses saturating a pad in less than 1 hour. No abd pain, CP SOB or dizziness. Pt advised of dispsition, agrees to seek [facility] now for exam. Pt advised to return call after discharge for follow up with PCP or team. Sent to team for [facility] status check PRN. Protocol Used: Vaginal Bleeding - Abnormal (Adult) Protocol-Based Disposition: Go to Office or Video Visit Now Override (Final) Disposition: Go to ED Now Override Reason: Nurse judgment Positive Triage Question: * Moderate vaginal bleeding (i.e., soaking pad or tampon per hour and present > 6 hours; 1 menstrual cup every 6 hours) * All higher-acuity triage questions were negative Care Advice Discussed: * Iron and Anemia * Reasons To Call Back - Severe abdomen pain or lightheadedness occurs - Bleeding worsens - You become worse * Telephone Encounter - Lani Rodgers - 07/07/2024 4:37 PM EDT Symptom: Vaginal Bleeding - Not Outcome: Schedule an urgent appointment (within 4 hours) or talk to a nurse or provider soon Reason: Getting worse The caller accepted this outcome. Pt stated that she being in her period seen 06/03/24 Her period is gone for 1 day and come back again documented in this encounter Plan of Treatment Upcoming Encounters Date Type Department Care Team (Late st Contact Info) Description 07/28/2024 1:30 PM EDT Office Visit [facility] [address] [place] [address] Alex Sheriff MD [address] [place] [address] documented as of this encounter Visit Diagnoses Not on filedocumented in this encounter Additional Health Concerns Assessment Noted Time PHQ-9 Depression Total Score: 6 04/24/19 1:43 PM EST documented as of this encounter Care Teams Mimeograph Operator Relationship Specialty Start Date End Date Alex Sheriff MD [address] [place] [address] PCP - General Internal Medicine 02/25/13 documented as of this encounter
--- OUTSIDE RECORDS SUMMARY | 2024-07-07 20:03 | XMS_ITS | Clinical Summary ---
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 butalbital-acetam inophen-caffeine 50-325-40 MG tabletIndications :Chronic migraine without aura without status migrainosus, not intractable Take 1 tablet by mouth every 6 (six) hours if needed for headaches. 20 tablet 01/30/20 23 Active diphenhydrAMINE (BENADryl) 25 MG tablet Take 1-2 tablets every 4-6 hours as needed for nasal allergies 90 tablet 2 05/07/19 24 Active Hypertonic Nasal Wash (Sinus Rinse Kit) pack Administer 1 packet into affected nostril(s) 3 times daily. Use with distilled water. 50 each 1 05/07/19 24 Active fexofenadine (Trini) 180 MG tablet Take 1 tablet (180 mg) by mouth Once per day. 30 tablet 11 08/08/19 24 025 Active B Complex Vitamins (Vitamin B Complex) capsuleIndication s:Chronic migraine without aura with status migrainosus, not intractable TAKE 1 CAPSULE BY MOUTH EVERY MORNING 90 each 3 11/04/19 24 Active PARoxetine (Paxil) 10 MG tabletIndications :Hot flushes, perimenopausal Take 1 tablet (10 mg) by mouth in the morning. 30 tablet 11/05/19 24 025 Active Semaglutide-Weigh t Management (Wegovy) 0.25 MG/0.5ML solution auto-injectorIndi cations:Obesity (BMI 30-39.9) 0.25 mg once a week. 2 mL 2 11/05/19 24 Active nortriptyline (Pamelor) 25 MG capsule Take 1 capsule (25 mg) by mouth at bedtime. 30 capsule 11 12/23/19 24 025 Active sucralfate (Carafate) 1 GM/10ML suspensionIndicat ions:Other acute gastritis without hemorrhage BEFORE BREAKFAST, BEFORE LUNCH, BEFORE EVENING MEAL AND AT BEDTIME 120 mL 12/24/19 24 Active topiramate (Topamax) 25 MG tablet TAKE 2 TABLETS(50 MG) BY MOUTH IN THE MORNING 30 tablet 2 12/24/19 24 Active naproxen (Naprosyn) 500 MG tabletIndications :Strain of right quadriceps, initial encounter,Muscle pain TAKE 1 TABLET(500 MG) BY MOUTH TWICE DAILY 20 tablet 02/20/19 25 Active lisinopril 40 MG tablet take 1 tablet (40MG) by oral route every day 90 tablet 3 03/11/19 25 Active dilTIAZem ER (Tiazac) 300 MG 24 hr capsule Take 1 capsule (300 mg) by mouth Once per day. 90 capsule 3 03/25/19 25 Active azelastine (Astelin) 0.1 % nasal spray Administer 1 spray into each nostril 2 times daily. Use in each nostril as directed 30 mL 12 03/25/19 25 026 Active pseudoephedrine (Sudafed) 60 MG tablet Take 1 tablet (60 mg) by mouth every 4 (four) hours if needed for congestion for up to 10 days. 30 tablet 03/25/19 25 Active omeprazole (PriLOSEC) [address] capsuleIndication s:Gastroesophagea l reflux disease without esophagitis TAKE 1 CAPSULE(20 MG) BY MOUTH BEFORE BREAKFAST. DO NOT CRUSH OR CHEW 90 capsule 3 04/23/19 25 Active fluticasone (Flonase) 50 MCG/ACT nasal sprayIndications: Nasal congestion Administer 1-2 sprays into each nostril Once per day. Shake gently. Before first use, prime pump. After use, clean tip and replace cap. 16 g 11 04/24/19 25 026 Active mirtazapine (Remeron) 7.5 MG tablet TAKE 1 TABLET BY MOUTH EVERY DAY AT BEDTIME 90 tablet 3 05/19/19 25 Active ibuprofen 800 MG tabletIndications :Breast pain, left,Pain in left cavanaugh TAKE 1 TABLET(800 MG) BY MOUTH THREE TIMES DAILY 90 tablet 05/19/19 25 Active cetirizine (ZyrTEC) 10 MG tablet TAKE 1 TABLET BY MOUTH 1 TO 2 TIMES DAILY NEEDED FOR ALLERGIES. DO NOT TAKE THIS IF YOU ARE TAKING DIPHENHYDRAMINE 60 tablet 2 05/19/19 25 Active metoprolol succinate XL (Toprol-XL) 100 MG 24 hr tabletIndications :Primary hypertension TAKE 1 TABLET(100 MG) BY MOUTH IN THE MORNING. DO NOT CRUSH OR CHEW 30 tablet 11 05/20/19 25 Active Active Problems Problem Noted Date Diagnosed [...] Encounters Date Type Department Care Team Description 07/07/2024 Orders Only GENERIC EXTERNAL DATA DEPARTMENT Provider, Generic External Data 07/07/2024 Telephone [facility] [address] [place] [phone] Alex Sheriff MD Nurse Triage 05/19/2024 Refill [facility] [address] [place] [address] Alex Sheriff MD Primary hypertension 05/18/2024 Refill [facility] [address] [place] [address] Alex Sheriff MD 05/16/2024 Refill [facility] [address] [place] [address] Alex Sheriff MD Breast pain, left; Pain in left cavanaugh 04/23/2024 1:15 PM EST Office Visit [facility] [address] [place] [address] Alex Sheriff MD Subacute maxillary sinusitis (Primary Dx); Nasal congestion; Primary hypertension; Screen for STD (sexually transmitted disease); Excessive cerumen in ear canal, left 04/23/2024 Travel 04/21/2024 Refill [facility] [address] [place] [address] Alex Sheriff MD Gastroesophageal reflux disease without esophagitis 04/16/2024 Patient Outreach [facility] [address] [place] [address] Alex Sheriff MD Pre-visit Planning (SDOH negative, Tobacco screening negative) from Last 3 Months Immunizations Immunization Administration Dates Next Due Influenza injectable quadriv [...] 04/23/2024 1:20 PM EST Plan of Treatment Upcoming Encounters Date Type Department Care Team ([facility] st Contact Info) Description 07/28/2024 1:30 PM EDT Office Visit [facility] [address] [place] [address] Alex Sheriff MD [address] [place] [address] Health Maintenance Due Date Last Done Comments CT Colonography 1975 Colonoscopy 1975 Colorectal Cancer Screening 1975 FIT DNA/Cologuard 1975 FIT 1975 FOBT 1975 Sigmoidoscopy 1975 Disability Screening 1975 Family Planning (PISQ) 05/10/1991 Hepatitis A Vaccines (1 of 2 - Risk 2-dose series) 05/10/1995 Hepatitis B Vaccines (1 of 3 - 19+ 3-dose series) 05/10/1995 COVID-19 Vaccine ( season) 2023 06/26/2021, 05/28/2020 Tobacco Screening 01/02/2025 01/03/2024 Alcohol/Substance Use Screening 04/23/2025 04/23/2024 Depression Screening 04/23/2025 04/23/2024, 04/24/19 SDOH Screening 04/23/2025 04/23/2024 Mammogram 10/23/2025 10/24/2023, 09/20, 08/03/2021, Additional history exists Zoster Vaccines (1 [...] Completed 11/05/2023, , 02/06/2022, Additional history exists HIV Screening Completed 04/23/2024 Hepatitis C Screening Completed 04/23/2024 HIB Vaccines Aged Out No longer eligi ble based on patient's age to complete this topic HPV Vaccines Aged Out No longer eligi ble based on patient's age to complete this topic IPV Vaccines Aged Out No longer eligi ble based on patient's age to complete this topic Meningococcal B Vaccine Aged Out No l onger eligible based on patient's age to complete [...] Name Priority Date/Time Associated Diagnosis Comments US PELVIS TRANSVAGINAL Routine 7:41 PM EDT URINALYSIS, COMPLETE, WITH REFLEX TO CULTURE Routine 07/07/2024 6:51 PM EDT HCG, TOTAL, QN Routine 07/07/2024 6:12 PM EDT MAGNESIUM Routine 07/07/2024 6:12 PM EDT COMPREHENSIVE METABOLIC PANEL Routine 07/07/2024 6:12 PM EDT CBC WITH AUTO DIFFERENTIAL Routine 07/07/2024 6:12 PM EDT HIV 1/2 ANTIGEN/ANTIBODY, FOURTH GENERATION W/RFL Routine 04/23/2024 1:51 PM EST Screen for STD (sexually transmitted disease) HEPATITIS C AB W/REFL TO HCV RNA, QN, PCR Routine 04/23/2024 1:51 PM EST Screen for STD (sexually transmitted disease) BI MAMMOGRAM SCREENING TOMOSYNTHESIS BILATERAL Routine 10/24/2023 12:00 PM EDT HPV MRNA E6/E7 REFLEX TO HPV 16, 18/45 Routine 09/25/2022 2:23 PM EDT PAP SMEAR Routine 09/25/2022 2:23 PM EDT LIPID PANEL, STANDARD Routine 07/24/2021 10:35 AM EDT from Last 3 Months or Most Recently Relevant to Health Maintenance Results * US Pelvis Transvaginal (07/07/2024 7:41 PM EDT) Anatomical Region Laterality Modality Pelvis Ultrasound 07/07/2024 7:41 PM EDT Narrative 07/07/2024 7:43 PM EDT ? [facility] [facility] ?[address] ?[place] [address] ? Ultrasound Report ? Signed ? Patient: Jack,Glendaly ?MR#: [id number] ?? [id number] ? : 1975 ?Acct:[id number] ? Age/Sex: 49 / F ?ADM Date: 07/07/24 ? Loc: HO.ED ? Attending Dr: ? Ordering Physician: Nelsy Pereira ?? Date of Service: 07/07/24 ?? Procedure(s): US pelvic and transvaginal ?? Accession Number(s): [id number] ? cc: Alex Sheriff MD; Nelsy Pereira ? CLINICAL HISTORY: vaginal bleeding x1 mo ? US pelvis transvaginal and transabdominal ? Comparison: No prior study provided. ? Findings: ?? Uterine body measures 4.6 x 5.9 x 8.5 cm. Two small suspected intramural ?? uterine fibroids measuring up to 1.5 cm. Mild endometrial thickening ?? measuring 2.2 cm maximum double layer thickness. ? Right ovary not visualized. Left ovary normal. ? IMPRESSION: ?? 1. Nonvisualized right ovary. ?? 2. Small uterine fibroids and mild endometrial thickening. ? This document has been electronically signed by: Home Jay MD on ?? 07/07/2024 19:41:47 ? Dictated By: ?Home Jay MD ? Signed By: ?<Electronically signed by Home Jay MD in OV> ? 07/07/24 1942 ? DD/ 40 ? TD/TT: 07/07/241940 ? Digital Marketing Apprentice: ? Procedure Note Bre Mccann - 07/07/2024 [place] [address] Ultrasound Report Signed Patient: Tank SantiagoMR#: [id number] : 1975Acct:[id number] Age/Sex: 49 / FADM Date: 07/07/24 Loc: HO.ED Attending Dr: Ordering Physician: Nelsy Pereira Date of Service: 07/07/24 Procedure(s): US pelvic and transvaginal Accession Number(s): [id number] cc: Alex Sheriff MD; Nelsy Pereira CLINICAL HISTORY: vaginal bleeding x1 mo US pelvis transvaginal and transabdominal Comparison: No prior study provided. Findings: Uterine body measures 4.6 x 5.9 x 8.5 cm. Two small suspected intramural uterine fibroids measuring up to 1.5 cm. Mild endometrial thickening measuring 2.2 cm maximum double layer thickness. Right ovary not visualized. Left ovary normal. IMPRESSION: 1. Nonvisualized right ovary. 2. Small uterine fibroids and mild endometrial thickening. This document has been electronically signed by: Home Jay MD on 07/07/2024 19:41:47 Dictated By: Home Jay MD Signed By: <Electronically signed by Home Jay MD in OV> 07/07/241941 DD/ 40 TD/TT: 07/07/241940 Digital Marketing Apprentice: us [facility] External Provider IMG US PROCEDURES Final Result * (ABNORMAL) Urinalysis, Complete, with Reflex to Culture (07/07/2024 6:51 PM EDT) Color Urine [place](A) [facility] Appearance Urine Clear [facility] PH 6.5 5.0 - 9.0 [facility] Glucose Urine UA Negative Negative mg/dL [facility] Urine Blood Large (3+)(A) Negative [facility] Specific Silver Plume - Urine 1.010 1.005 - 1.025 [facility] Urine Protein Negative Neg-Trace mg/dL [facility] Urine Ketones Negative Negative mg/dL [facility] Nitrite Urine Negative Negative [facility] Leukocyte Esterase Urine Trace(A) Negative [facility] RBC Urine >20(A) 0 - 2 /HPF [facility] Urine WBC 0-5 0 - 5 /HPF [facility] Urine Squamous Epithelial Cell 0-2 0 - 2 /HPF [facility] Urine Bacteria None Seen None Seen [facility] Hyaline Casts, Urine 0-2 0 - 2 /LPF [facility] 07/07/2024 6:51 PM EDT 07/07/2024 7:03 PM EDT Narrative [facility] - 07/07/2024 7:12 PM EDT [id number], Clean Catch us Generic External Data Provider LAB URINE ORDERAB LES Final Result [facility] [address] [place] [address] [phone] * (ABNORMAL) CBC auto differential (07/07/2024 6:12 PM EDT) White Blood Count 9.2 4.8 - 10.8 X10*3/uL [facility] Red Blood Count 4.62 4.20 - 5.50 X10*6/uL [facility] Hemoglobin 12.9 12.0 - 16.0 g/dl [facility] Hematocrit 37.6 37.0 - 47.0 % [facility] Mean Corpuscular Volume 81.4 80.0 - 98.0 fL [facility] Mean Corpuscular Hemoglobin 27.9 27.0 - 33.0 pg [facility] Mean Corpuscular HGB Conc 34.3 31.0 - 35.0 g/dl [facility] Red Cell Distribution Width 14.7 11.0 - 16.0 % [facility] Platelet Count 261 160 - 400 X10*3/uL [facility] Mean Platelet Volume 9.6 9.4 - 12.3 fL [facility] Neutrophils Percent Auto 55.2 45 - 73 % [facility] Imm Gran Pct Auto 0.1 0.0 - 0.4 % [facility] Lymphocytes Percent Auto 30.1 20 - 40 % [facility] Monocytes Percent Auto 7.7 2 - 11 % [facility] Eosinophils Percent Auto 6.1(H) 0 - 4 % [facility] Basophils Percent Auto 0.8 0 - 2 % [facility] NRBC Pct Auto 0.0 0.0 - 0.2 /100WBC [facility] Neutrophils Absolute Auto 5.1 2.0 - 8.3 x10*3/uL [facility] Imm Gran Abs Auto 0.01 0.00 - 0.03 X10*3/uL [facility] Lymphocytes Absolute Auto 2.8 1.2 - 4.9 X10*3/uL [facility] Monocytes Absolute Auto 0.7 0.1 - 1.2 X10*3/uL [facility] Eosinophils Absolute Auto 0.6(H) 0.0 - 0.4 X10*3/uL [facility] Basophils Absolute Auto 0.1 0.0 - 0.2 X10*3/uL [facility] NRBC Abs Auto 0.000 0.0 - 0.012 X10*3/uL [facility] 07/07/2024 6:1 2 PM EDT 07/07/2024 6:14 PM EDT us Generic External Data Provider LAB BLOOD ORDERAB LES Final Result [facility] [address] [place] [phone] * hCG, Total, Quantitative (07/07/2024 6:12 PM EDT) HCG Quantitative <2 mIU/mL [facility] Comment:Weeks post LMP Appro ximate hCG(Last Menstrual Period) Range (mIU/ml)3 - 4 weeks 9 - 1304 - 5 weeks 75 - 2,6005 - 6 weeks 850 - 20,8006 - 7 weeks 4000 - 100,2007 - 12 weeks 11,500 - 289,01841 - 16 weeks 18,300 - 137,63134 - 29 weeks (2nd trimester) 1,400 - 53,66750 - 41 weeks (3rd trimester) 940 - 60,000The Moralez B- hCG assay is used for the early detection ofpregnancy; it cannot be used to diagnose any conditionunrelated to . If a B-hCG level is not supportedby the clinical evidence, results should be confirmed by analternative method (qualitative urine hCG, for example). 07/07/2024 6:12 PM EDT 07/07/2024 6:14 PM EDT us Generic External Data Provider LAB BLOOD ORDERAB LES Final Result Performing Organization Address City/[facility]/ZIP Co de Phone Number [facility] [address] [place] [phone] * Magnesium (07/07/2024 6:12 PM EDT) Magnesium 2.0 1.6 - 2.6 mg/dL [facility] 07/07/2024 6:12 PM EDT 07/07/2024 6:14 PM EDT So1 External Data Provider LAB BLOOD ORDERAB LES Final Result Performing Organization Address [facility] Co de Phone Number [facility] [address] [place] [phone] * Comprehensive Metabolic Panel (07/07/2024 6:12 PM EDT) Sodium 140 135 - 145 mmol/L [facility] Potassium 4.0 3.3 - 5.1 mmol/L [facility] Chloride 107 96 - 108 mmol/L [facility] Carbon Dioxide 23 22 - 29 mmol/L [facility] Anion Gap 14 12 - 20 [facility] Urea Nitrogen (BUN) 10 9 - 16 mg/dL [facility] Creatinine, Serum 0.84 0.5 - 1.4 mg/dL [facility] Creatinine Clr Calc Pharmacy 85.5 [facility] Comment:Provided height and weight: 157.48 cm,90.2 kg.eGFR (calculated from the MDRD study equation) and eCrCl(calculated from the Cockcroft-Gault equation) are based ondifferent parameters and may not yield comparable results.If eCrCl result is absurd, please check patient'sheight/weight. Estimated Glomerular Filt Rate >60 [facility] Comment:Chronic Kidney Disea se: Estimated GFR < 60 mL/min/1.79n9Mrtzkp Kidney Disease: Estimated GFR < 15 mL/min/1.73m2 Glucose 101 60 - 115 mg/dL [facility] Calcium 9.3 8.4 - 10.2 mg/dL [facility] Bilirubin, Total 0.2 0.0 - 1.0 mg/dL [facility] Aspartate Amino Transferase 28 5 - 31 U/L [facility] Alanine Aminotransferase 29 0 - 31 U/L [facility] Total Protein 7.1 6.5 - 8.0 g/dL [facility] Albumin Level 4.3 3.5 - 5.0 g/dL [facility] Alkaline Phosphatase 78 39 - 117 U/L [facility] 07/07/2024 6:12 PM EDT 07/07/2024 6:14 PM EDT us Generic External Data Provider LAB BLOOD ORDERAB LES Final Result Performing Organization Address [facility]/ZIP Co de Phone Number [facility] [address] [place] [phone] * Hepatitis C Antibody with Reflex to HCV, RNA, Quantitative, Real-Time PCR (04/23/2024 1:51 PM EST) Hepatitis C Antibody Nonreactive Nonreactive [facility] Comment:Antibodies to HCV no t detected; does not exclude early acuteHCV infection. Blood Venous blood specimen / Unknown 04/23/2024 1:51 PM EST 04/23/2024 5:34 PM EST us Alex Sheriff MD LAB BLOOD ORDERABLES Final Result Performing Organization Address [facility] Co de Phone Number [facility] [address] [place] [address] [phone] * HIV-1/2 Antigen and Antibodies, Fourth Generation, with Reflexes (04/23/2024 1:51 PM EST) HIV AB/AG Nonreactive Nonreactive [facility] Comment:HIV-1 p24 Ag and/or HIV-1/HIV-2 Ab not detected.A test result that is nonreactive does not exclude thepossibility of exposure to or infection with HIV-1 and/orHIV-2. Nonreactive results in this assay for individualswith prior exposure to HIV-1 and/or HIV-2 may be due toantigen and antibody levels that are below the limit ofdetection of this assay.The ModusPni[employer]alina HIV Ag/Ab Combo assay result andsupplemental assay results should be interpreted inconjunction with the patient's clinical presentation,history and other laboratory results. If the results areinconsistent with clinical evidence, additional testing issuggested to confirm the result. Blood Venous blood specimen / Unknown 04/23/2024 1:51 PM EST 04/23/2024 5:34 PM EST us Alex Sheriff MD LAB BLOOD ORDERABLES Final Result [facility] [address] [place] [address] [phone] * BI Mammogram Screening Tomosynthesis Bilateral (10/24/2023 12:00 PM EDT) Anatomical Region Laterality Modality Breast Bilateral Mammography 10/24/2023 12:0 0 PM EDT Narrative 11/10/2023 2:27 PM EDT ? [facility] [place] ? [address] ?[place] [address] ? Mammography Report ? Signed ? Patient: Tank Santiago ?MR#: [id number] ?? [id number] ? : 1975 ?Acct:[id number] ? Age/Sex: 48 / F ?ADM Date: 09/05/24 ? Loc: HO.MAMMO ? Attending Dr: Alex Sheriff MD ? Ordering Physician: Alex Sheriff MD ?Results: 1 ?? Negative ? Date of Service: 10/24/23 ?Follow Up: 1 Year From Orig ?? inal Mammogram ? Procedure(s): MM tomosynthesis screening BI ?? Accession Number(s): [id number] ? cc: Alex Sheriff MD ? EXAMINATION: [...] ? Signed By: ?<Electronically signed by Penelope Johnson, DO in OV> ? 11/10/23 1424 ? DD/ 1200 ? TD/TT: 10/24/23 1222 ? Digital Marketing Apprentice: ? Procedure Note Donotuseinterpreter, Image - 11/10/2023 [facility] [address] [place] [address] Mammography Report Signed Patient: Tank SantiagoMR#: [id number] : 1975Acct:[id number] Age/Sex: 48 / FADM Date: 10/24/23 Loc: HO.MAMMO Attending Dr: Alex Sheriff MD Ordering Physician: Alex Sheriff MDResults: 1 Negative Date of Service: 10/24/23Follow Up: 1 Year From Orig inal Mammogram Procedure(s): MM tomosynthesis screening BI Accession Number(s): [id number] cc: Alex Sheriff MD EXAMINATION: MM SCREENING [...] 11/10/23 1424 DD/ 1200 TD/TT: 10/24/23 1222 Digital Marketing Apprentice: us Alex Sheriff MD IMG BI PROCEDURES Final Res ult * HPV mRNA E6/E7 w/Reflex to HPV Genotypes 16, 18/45 (09/25/2022 2:23 PM EDT) HPV nRNA E6/E7 Not Detected Not Detected [facility] Comment:Methodology: Transcr iption-Mediated AmplificationThis assay detects E6/E7 viral messenger RNA (mRNA) from 14high-risk HPV types (16,18,31,33,35,39,45,51,52,56,58,59,66,68).Cervical sources are required for HPV testing.If a vaginal source from a patient who has had atotal hysterectomy with removal of cervix wassubmitted, please contact the testing laboratoryfor alternative testing options.For additional information, please refer tohttp://education.[employer]/faq/LRM119a9(This link if provided for information/educational purposes only.)THIS TEST WAS PERFORMED AT:[facility] [place] [phone] THOMAS MD HPV mRNA E6/E7 TNP [facility] HPV 16 RNA [facility] HPV 18/45 RNA [facility] 09/25/2022 2:23 PM EDT 09/27/2022 9:00 AM EDT Nadiya Kumar [facility] LAB CYTOLOGY ORDERABLES F inal Result [facility] [address] [place] [phone] * Pap Smear (09/25/2022 2:23 PM EDT) 09/25/2022 2:23 PM EDT 09/27/2022 9:00 AM EDT Narrative [facility] - 10/24/2022 2:24 PM EDT ----- ------- Name: Tank Santiago ? Age/Sex: 47/F ? : 1975 Unit#: [id number] ?? Attend Dr: NADIYA KUMAR CNM ?Re09/25/22 ?Status: DEP REF ? [facility] ? Disch: ? ----- ------- SPEC : [id number] ?RECD: 09/27/22 ? STATUS: ??SOUT ? REQ NUM: [id number] ? YESI: 09/25/22-953 ? SUBM DR: NADIYA KUMAR CNM ? ENTERED: ??09/27/22-1632 ?SP TYPE: Pap Smr ?OTHR : ? [...] 66, 68) ? HPV testing performed by [employer] [facility], [place], [place]. ??See reference laboratory ?? portion of the EMR for entire report. ?Clinical Information LMP:Unknown date Previous PAP test:Unknown date/findings Other history: ASCUS, HPV neg 01/2019 ? Material Received ?? ThinPrep-Cervical ----- ------- Signed (signature on file) Sterling White MD 10/24/22 1424 ? ----- ------- ? END OF REPORT ? us Nadiya CARRANZA LAB CYTOLOGY ORDERABLES F inal Result [facility] [address] [place] [address] [phone] * (ABNORMAL) LIPID PANEL, STANDARD (07/24/2021 10:35 [...] ?? Minh MATAMOROS et al. POONAM. 2013;310(19): 8022-8797 ?? (http://education.[employer]/faq/HFS602) Non-HDL Cholesterol 178(H) <130 mg/dL (calc) [facility] Comment: For patients with diabetes plus 1 major ASCVD risk ?? factor, treating to a non-HDL-C goal of <100 mg/dL ?? (LDL-C of <70 mg/dL) is considered a therapeutic ?? option. Triglycerides 172(H) <150 mg/dL [facility] 07/24/2021 10:3 5 AM EDT us Steph Rebolledo MD LAB BLOOD ORDERABLES Final Result Performing Organization Address City/[facility]/ZIP Co de Phone Number [facility] [address] from Last 3 Months or Most Recently Relevant to Health Maintenance Insurance CCA ONE CARE < 65 CCA ONE CARE < 65 CCA ONE CARE < 65 Care Teams Diesel Powerplant Supervisor Relationship Specialty Start Date End Date Alex Sheriff MD [address] [place] [phone] PCP - General Internal Medicine 02/25/13
--- OUTSIDE RECORDS SUMMARY | 2024-07-07 20:03 | XMS_ITS | Encounter Summary ---
Author Organization [employer] Address [address] [place] [address] 7 [place] [address] Care Team Providers Care Marine Architect Name Role Phone Alex Sheriff MD Primary Care Provider [phone] Encounter Details Date Type Department Care Team (Late Contact Info) Description 05/14/2022 Orders Only [facility] [address], [place] [phone] Matilde Norwood LPN Social History Tobacco Use [...] as of this encounter Plan of Treatment Upcoming Encounters Date Type Department Care Team (Late st Contact Info) Description 07/28/2024 1:30 PM EDT Office Visit [facility] [address], [place] [phone] Alex Sheriff MD [address] [place] [address] documented as of this encounter Procedures Procedure [...] 1:35 PM EDT 08/07/2022 2:30 PM EDT [facility] - 08/08/2022 6:12 PM EDT ----- ------- Name: Tank Khan ? Age/Sex: 47/F ? : 1975 Unit#: [id number] ?? Attend Dr: Matteo Littlejohn MD ?Re08/07/22 ?Status: DEP SDC ? Location: HO.SSS ?Disch: ? ----- ------- SPEC : [id number] ? RECD: 08/07/22-1429 ? STATUS: ??SOUT ? REQ NUM: [id number] ? YESI: 08/07/22-1825 ? SUBM DR: Matteo Littlejohn MD ? ENTERED: ??08/07/22-1578 ?SP TYPE: Surgical ? OTHR DR: Alex [...] To: ?? Matteo Littlejohn MD ?? [address] ?? [address] ?? [place] [address] ?? [phone] ?? [email or web address] ?? Alex Sheriff MD ?? [address] ?? [place] [address] ?? ----- ------- Signed (signature on file) Sterling White MD 08/08/221811 ? ----- ------- ? END OF REPORT ? [facility] External Provider LAB BLO OD ORDERABLES Final Result Performing Organization Address [facility] de Phone Number [facility] [address] [place] [address] [phone] * HCG, Qualitative, Urine (08/07/2022 10:30 AM EDT) Pathologist [facility] Urine NEGATIVE NEGATIVE [facility] Comment:This test was develo ped to detect early . Falsenegative results may occur after the 5th - 7th week ofpregnancy when using this test method. If clinicallyindicated, consider a serum hCG. 08/07/2022 10:3 0 AM EDT 08/07/2022 10:50 AM EDT [facility] External Provider LAB URI NE ORDERABLES Final Result Performing Organization Address [facility] de Phone Number [facility] [address] [place] [address] [phone] * hCG, Total, Quantitative (07/31/2022 7:47 PM EDT) Pathologist [facility] HCG Quantitative <2 mIU/mL [facility] Comment:Weeks post LMP Appr oximate hCG(Last Menstrual Period) Range (mIU/ml)3 - 4 weeks 9 - 1304 - 5 weeks 75 - 2,6005 - 6 weeks 850 - 20,8006 - 7 weeks 4000 - 100,2007 - 12 weeks 11,500 - 289,06974 - 16 weeks 18,300 - 137,35387 - 29 weeks (2nd trimester) 1,400 - 53,41484 - 41 weeks (3rd trimester) 940 - 60,000The Moralez B- hCG assay is used for the early detection ofpregnancy; it cannot be used to diagnose any conditionunrelated to . If a B-hCG level is not supportedby the clinical evidence, results should be confirmed by analternative method (qualitative urine hCG, for example). 07/31/2022 7:47 PM EDT 07/31/2022 7:51 PM EDT Narrative [facility] - 07/31/2022 8:21 PM EDT ([facility]) [facility] External Provider LAB BLO OD ORDERABLES Final Result Performing Organization Address [facility] Co de Phone Number [facility] [address] [place] [phone] * Lipase (07/31/2022 2:29 PM EDT) Lipase 22 8 - 78 U/L [facility] 07/31/2022 2:29 PM EDT 07/31/2022 2:35 PM EDT [facility] External Provider LAB BLO OD ORDERABLES Final Result Performing Organization Address [facility] Co de Phone Number [facility] [address] [place] [phone] * Magnesium (07/31/2022 2:29 PM EDT) Magnesium 2.2 1.6 - 2.6 mg/dL [facility] 07/31/2022 2:29 PM EDT 07/31/2022 2:35 PM EDT [facility] External Provider LAB BLO OD ORDERABLES Final Result Performing Organization Address [facility] Co de Phone Number [facility] [address] [place] [address] [place] [address] [phone] * Basic Metabolic Panel (07/31/2022 2:29 PM EDT) Sodium 141 135 - 145 mmol/L [facility] Potassium 4.4 3.3 - 5.1 mmol/L [facility] Chloride 108 96 - 108 mmol/L [facility] Carbon Dioxide 25 22 - 29 mmol/L [facility] Anion Gap 12 12 - 20 [facility] Urea Nitrogen (BUN) 10 9 - 16 mg/dL [facility] Creatinine, Serum 0.74 0.5 - 1.4 mg/dL [facility] Creatinine Clr Calc Pharmacy 98.6 [facility] Comment:Provided height and weight: 157.48 cm,89.3 kg.eGFR (calculated from the MDRD study equation) and eCrCl(calculated from the Cockcroft-Gault equation) are based ondifferent parameters and may not yield comparable results.If eCrCl result is absurd, please check patient'sheight/weight. Estimated Glomerular Filt Rate >60 [facility] Comment:NOTE: For -Am erican individuals, multiply the result by 1.210.Chronic Kidney Disease: Estimated GFR < 60 mL/min/1.47x4Apgtga Kidney Disease: Estimated GFR < 15 mL/min/1.73m2 Glucose 104 60 - 115 mg/dL [facility] Calcium 9.8 8.4 - 10.2 mg/dL [facility] 07/31/2022 2:29 PM EDT 07/31/2022 2:35 PM EDT us [facility] External Provider LAB BLO OD ORDERABLES Final Result [facility] [address] [place] [address] [phone] * Hepatic Function Panel (07/31/2022 2:29 PM EDT) Bilirubin, Total 0.5 0.0 - 1.0 mg/dL [facility] Bilirubin, Direct 0.1 0.0 - 0.5 mg/dL [facility] Aspartate Amino Transferase 22 5 - 31 U/L [facility] Alanine Aminotransferase 24 0 - 31 U/L [facility] Total Protein 7.5 6.5 - 8.0 g/dL [facility] Albumin Level 4.3 3.5 - 5.0 g/dL [facility] Alkaline Phosphatase 69 39 - 117 U/L [facility] 07/31/2022 2:29 PM EDT 07/31/2022 2:35 PM EDT us [facility] External Provider LAB BLO OD ORDERABLES Final Result [facility] [address] [place] [address] [phone] * (ABNORMAL) Complete Blood Count Manual Diff (07/31/2022 2:29 PM EDT) White Blood Count 10.0 4.8 - 10.8 X10*3/uL [facility] Red Blood Count 4.89 4.20 - 5.50 X10*6/uL [facility] Hemoglobin 13.5 12.0 - 16.0 g/dl [facility] Hematocrit 41.4 37.0 - 47.0 % [facility] Mean Corpuscular Volume 84.7 80.0 - 98.0 fL [facility] Mean Corpuscular Hemoglobin 27.6 27.0 - 33.0 pg [facility] Mean Corpuscular HGB Conc 32.6 31.0 - 35.0 g/dl [facility] Red Cell Distribution Width 14.4 11.0 - 16.0 % [facility] Platelet Count 322 160 - 400 X10*3/uL [facility] Mean Platelet Volume 9.4 9.4 - 12.3 fL [facility] NRBC Pct Auto 0.0 0.0 - 0.2 /100WBC [facility] NRBC Abs Auto 0.000 0.0 - 0.012 X10*3/uL [facility] Neutrophils % Manual 58 45 - 73 % [facility] Band Neutrophils Percent 1(L) 3 - 5 % [facility] Lymphocytes Percent Manual 30 20 - 40 % [facility] Monocytes Percent Manual 6 2 - 11 % [facility] EOSINOPHILS % MANUAL 5(H) 0 - 4 % [facility] NEUTROPHILS ABSOLUTE MANUAL 5.9 2.0 - 8.3 X10*3/uL [facility] LYMPHOCYTES ABSOLUTE MANUAL 3.0 1.2 - 4.9 X10*3/uL [facility] MONOCYTES ABSOLUTE MANUAL 0.6 0.1 - 1.2 X10*3/uL [facility] EOSINOPHILS ABSOLUTE MANUAL 0.5(H) 0.0 - 0.4 X10*3/uL [facility] Platelet Estimate NORMAL NORMAL [facility] Platelet Morphology Comment NORMAL [facility] RBC Morphology NOTED [facility] Ovalocytes 1+ (5-14) /OIF [facility] Acanthocytes 2+ (3-5) /[facility] 07/31/2022 2:29 PM EDT 07/31/2022 2:35 PM EDT us [facility] External Provider LAB BLO OD ORDERABLES Final Result [facility] [address] [place] [address] [phone] * (ABNORMAL) Urinalysis, Complete, with Reflex to Culture (07/31/2022 2:29 PM EDT) Color Urine Yellow [facility] Appearance Urine Clear [facility] PH 6.5 5.0 - 9.0 [facility] Glucose Urine UA Negative Negative mg/dL [facility] Urine Blood Moderate (2+)(A) Negative [facility] Specific [place] - Urine <=1.005 1.005 - 1.025 [facility] Urine Protein Trace Neg-Trace mg/dL [facility] Urine Ketones Negative Negative mg/dL [facility] Nitrite Urine Negative Negative [facility] Leukocyte Esterase Urine Trace(A) Negative [facility] RBC Urine 3-5(A) 0 - 2 /HPF [facility] Urine WBC 0-5 0 - 5 /HPF [facility] Urine Squamous Epithelial Cell 3-5 0 - 2 /HPF [facility] Urine Bacteria None Seen None Seen [facility] Hyaline Casts, Urine 0-2 0 - 2 /LPF [facility] 07/31/2022 2:29 PM EDT 07/31/2022 2:35 PM EDT Narrative [facility] - 07/31/2022 3:14 PM EDT [id number], Clean Catch [facility] External Provider LAB URI NE ORDERABLES Final Result Performing Organization Address [facility]/ZIP Co de Phone Number [facility] [address] [place] [address] [phone] * Lactic Acid (07/16/2022 10:07 AM EDT) Lactic Acid 1.5 0.5 - 2.0 mmol/L [facility] 07/16/2022 10:0 7 AM EDT 07/16/2022 10:12 AM EDT [facility] External Provider LAB BLO OD ORDERABLES Final Result Performing Organization Address [facility]/ZIP Co de Phone Number [facility] [address] [place] [phone] [phone] * (ABNORMAL) Urinalysis, Complete, with Reflex to Culture (07/16/2022 9:49 AM EDT) Color Urine Yellow [facility] Appearance Urine Cloudy [facility] PH 6.0 5.0 - 9.0 [facility] Glucose Urine UA Negative Negative mg/dL [facility] Urine Blood Large (3+)(A) Negative [facility] Specific [place] - Urine 1.015 1.005 - 1.025 [facility] Urine Protein 300 (3+)(A) Neg-Trace mg/dL [facility] Urine Ketones Negative Negative mg/dL [facility] Nitrite Urine Negative Negative [facility] Leukocyte Esterase Urine Large (3+)(A) Negative [facility] RBC Urine 3-5(A) 0 - 2 /HPF [facility] Urine WBC >50(A) 0 - 5 /HPF [facility] Urine Squamous Epithelial Cell 0-2 0 - 2 /HPF [facility] Urine Bacteria 4+ None Seen [facility] Hyaline Casts, Urine 3-5 0 - 2 /LPF [facility] 07/16/2022 9:49 AM EDT 07/16/2022 9:52 AM EDT Narrative [facility] - 07/16/2022 10:06 AM EDT [id number], Clean Catch [facility] External Provider LAB URI NE ORDERABLES Final Result Performing Organization Address City/[facility]/ZIP Co de Phone Number [facility] [address] [place] [phone] * Magnesium (07/16/2022 7:42 AM EDT) Magnesium 1.8 1.6 - 2.6 mg/dL [facility] 07/16/2022 7:42 AM EDT 07/16/2022 7:45 AM EDT [facility] External Provider LAB BLO OD ORDERABLES Final Result Performing Organization Address [facility] Co de Phone Number [facility] [address] [place] [phone] * (ABNORMAL) Basic Metabolic Panel (07/16/2022 7:42 AM EDT) Sodium 137 135 - 145 mmol/L [facility] Potassium 4.4 3.3 - 5.1 mmol/L [facility] Comment:Slight Hemolysis Chloride 106 96 - 108 mmol/L [facility] Carbon Dioxide 19(L) 22 - 29 mmol/L [facility] Anion Gap 16 12 - 20 [facility] Urea Nitrogen (BUN) 11 9 - 16 mg/dL [facility] Creatinine, Serum 0.80 0.5 - 1.4 mg/dL [facility] Creatinine Clr Calc Pharmacy 91.5 [facility] Comment:Provided height and weight: 157.48 cm,89.811 kg.eGFR (calculated from the MDRD study equation) and eCrCl(calculated from the Cockcroft-Gault equation) are based ondifferent parameters and may not yield comparable results.If eCrCl result is absurd, please check patient'sheight/weight. Estimated Glomerular Filt Rate >60 [facility] Comment:NOTE: For -Am erican individuals, multiply the result by 1.210.Chronic Kidney Disease: Estimated GFR < 60 mL/min/1.02d7Fvelck Kidney Disease: Estimated GFR < 15 mL/min/1.73m2 Glucose 138(H) 60 - 115 mg/dL [facility] Calcium 9.4 8.4 - 10.2 mg/dL [facility] 07/16/2022 7:42 AM EDT 07/16/2022 7:45 AM EDT us [facility] External Provider LAB BLO OD ORDERABLES Final Result [facility] [address] [place] [phone] * Hepatic Function Panel (07/16/2022 7:42 AM EDT) Bilirubin, Total 0.4 0.0 - 1.0 mg/dL [facility] Bilirubin, Direct 0.1 0.0 - 0.5 mg/dL [facility] Comment:Slight Hemolysis Aspartate Amino Transferase 21 5 - 31 U/L [facility] Comment:Slight Hemolysis Alanine Aminotransferase 22 0 - 31 U/L [facility] Total Protein 7.3 6.5 - 8.0 g/dL [facility] Albumin Level 4.2 3.5 - 5.0 g/dL [facility] Alkaline Phosphatase 64 39 - 117 U/L [facility] 07/16/2022 7:42 AM EDT 07/16/2022 7:45 AM EDT us [facility] External Provider LAB BLO OD ORDERABLES Final Result [facility] [address] [place] [phone] * (ABNORMAL) CBC auto differential (07/16/2022 7:42 AM EDT) White Blood Count 15.8(H) 4.8 - 10.8 X10*3/uL [facility] Red Blood Count 4.63 4.20 - 5.50 X10*6/uL [facility] Hemoglobin 12.9 12.0 - 16.0 g/dl [facility] Hematocrit 38.4 37.0 - 47.0 % [facility] Mean Corpuscular Volume 82.9 80.0 - 98.0 fL [facility] Mean Corpuscular Hemoglobin 27.9 27.0 - 33.0 pg [facility] Mean Corpuscular HGB Conc 33.6 31.0 - 35.0 g/dl [facility] Red Cell Distribution Width 14.4 11.0 - 16.0 % [facility] Platelet Count 308 160 - 400 X10*3/uL [facility] Mean Platelet Volume 9.6 9.4 - 12.3 fL [facility] Neutrophils Percent Auto 76.3(H) 45 - 73 % [facility] Imm Gran Pct Auto 0.4 0.0 - 0.4 % [facility] Lymphocytes Percent Auto 15.5(L) 20 - 40 % [facility] Monocytes Percent Auto 7.2 2 - 11 % [facility] Eosinophils Percent Auto 0.1 0 - 4 % [facility] Basophils Percent Auto 0.5 0 - 2 % [facility] NRBC Pct Auto 0.0 0.0 - 0.2 /100WBC [facility] Neutrophils Absolute Auto 12.1(H) 2.0 - 8.3 x10*3/uL [facility] Imm Gran Abs Auto 0.06(H) 0.00 - 0.03 X10*3/uL [facility] Lymphocytes Absolute Auto 2.5 1.2 - 4.9 X10*3/uL [facility] Monocytes Absolute Auto 1.1 0.1 - 1.2 X10*3/uL [facility] Eosinophils Absolute Auto 0.0 0.0 - 0.4 X10*3/uL [facility] Basophils Absolute Auto 0.1 0.0 - 0.2 X10*3/uL [facility] NRBC Abs Auto 0.000 0.0 - 0.012 X10*3/uL [facility] 07/16/2022 7:42 AM EDT 07/16/2022 7:45 AM EDT us [facility] External Provider LAB BLO OD ORDERABLES Final Result Performing Organization Address City/State/[facility] Co de Phone Number [facility] [address] [place] [address] [phone] documented in this encounter Visit Diagnoses Not on filedocumented in this encounter Care Teams Marine Architect Relationship Specialty Start Date End Date Alex Sheriff MD [address] [place] [phone] PCP - General Internal Medicine 02/25/13 documented as of this encounter
--- OUTSIDE RECORDS SUMMARY | 2024-07-07 20:03 | XMS_ITS | Encounter Summary ---
Author Organization [employer] Address [address] [facility] [address] [place] [address] Care Team Providers Care Accounting Technician Name Role Phone Alex Sheriff MD Primary Care Provider [phone] Reason for Visit * Reason Comments Med Refill Encounter Details Date Type Department Care Team ([facility] Contact Info) Description 12/23/2023 Refill [facility] [address] [place], [place] [phone] Alex Sheriff MD [address] [place] [address] Cerumen debris on tympanic membrane of left ear Social History Tobacco Use Types Packs/Day Years Used Date Smoking Tobacco: Former Smokeless Tobacco: Never Alcohol Use Standard Drinks/Week Comments Not Currently 0 (1 standard drink = 0.6 oz pur e alcohol) Housing Stability Answer Date Recorded What is your housing situation today? I have natalie isma 03/28/[address] you li [...] Description 07/28/2024 1:30 PM EDT Office Visit [facility] [address] [place] [address] Alex Sheriff MD [address] [place] [address] documented as of this encounter Visit Diagnoses Diagnosis Cerumen debris on tympanic membrane of left ear documented in this encounter Care Teams Accounting Technician Relationship Specialty Start Date End Date Alex Sheriff MD [address] [place] [address] PCP - General Internal Medicine 02/25/13 documented as of this encounter
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
--- OUTSIDE RECORDS SUMMARY | 2024-07-07 20:03 | XMS_ITS | Encounter Summary ---
Author Organization [employer] Address [address] [facility] 7t [place] [address] Care Team Providers Care Erosion Control Specialist Name Role Phone Alex Sheriff MD Primary Care Provider [phone] Encounter Details Date Type Department Care Team (Late st Contact Info) Description 07/07/2024 Orders Only GENERIC EXTERNAL DATA DEPARTMENT Provider, Generic External Data Social History Tobacco Use Types Packs/Day Years [...] Upcoming Encounters Date Type Department Care Team ([facility] st Contact Info) Description 07/28/2024 1:30 PM EDT Office Visit [facility] & PEDS [address] [place], [place] [phone] Alex Sheriff MD [address] [place] [address] documented as of this encounter Procedures Procedure Name Priority Date/Time Associated Diagnosis Comments US PELVIS TRANSVAGINAL Routine 7:41 PM EDT URINALYSIS, COMPLETE, WITH REFLEX TO CULTURE Routine 07/07/2024 6:51 PM EDT CBC WITH AUTO DIFFERENTIAL Routine 07/07/2024 6:12 PM EDT HCG, TOTAL, QN Routine 07/07/2024 6:12 PM EDT MAGNESIUM Routine 07/07/2024 6:12 PM EDT COMPREHENSIVE METABOLIC PANEL Routine 07/07/2024 6:12 PM EDT documented in this encounter Results * US Pelvis Transvaginal (07/07/2024 7:41 PM EDT) Anatomical Region Laterality Modality Pelvis Ultrasound 07/07/2024 7:41 PM EDT Narrative 07/07/2024 7:43 PM EDT ? [facility] [facility] ?[address] ?[place] [address] ? Ultrasound Report ? Signed ? Patient: Jack,Glendaly ?MR#: [id number] ?? [id number] ? : 1975 ?Acct:[id number] ? Age/Sex: 49 / F ?ADM Date: 07/07/24 ? Loc: HO.ED ? Attending Dr: ? Ordering Physician: Nelsy Pereira ?? Date of Service: 07/07/24 ?? Procedure(s): US pelvic and transvaginal ?? Accession Number(s): [id number] ? cc: Alex Sheriff MD; Nelsy Pereira [...] by Home Jay MD in OV> ? 07/07/241941 ? DD/ 40 ? TD/TT: 07/07/241940 ? Leather Sponger: ? Procedure Note Bre Mccann - 07/07/[address] [address] Ultrasound Report Signed Patient: Tank SantiagoMR#: [id number] : 1975Acct:[id number] Age/Sex: 49 / FADM Date: 07/07/24 Loc: HO.ED Attending Dr: Ordering Physician: Nelsy Pereira Date of Service: 07/07/24 Procedure(s): US pelvic and transvaginal Accession Number(s): [id number] cc: Alex Sheriff MD; Nelsy Pereira CLINICAL [...] in OV> 07/07/241941 DD/ 40 TD/TT: 07/07/241940 Leather Sponger: us [facility] External Provider IMG US PROCEDURES Final Result * (ABNORMAL) Urinalysis, Complete, with Reflex to Culture (07/07/2024 6:51 PM EDT) Color Urine Moira(A) [facility] Appearance Urine Clear [facility] PH 6.5 5.0 - 9.0 [facility] Glucose Urine UA Negative Negative mg/dL [facility] Urine Blood Large (3+)(A) Negative [facility] Specific [place] - Urine 1.010 1.005 - 1.025 [facility] Urine Protein Negative Neg-Trace mg/dL [facility] Urine Ketones Negative Negative mg/dL [facility] Nitrite Urine Negative Negative [facility] Leukocyte Esterase Urine Trace(A) Negative [facility] RBC Urine >20(A) 0 - 2 /HPF [facility] Urine WBC 0-5 0 - 5 /HPF [facility] Urine Squamous Epithelial Cell 0-2 0 - 2 /HPF [facility] Urine Bacteria None Seen None Seen [facility] Hyaline Casts, Urine 0-2 0 - 2 /LPF [facility] 07/07/2024 6:51 PM EDT 07/07/2024 7:03 PM EDT Narrative [facility] - 07/07/2024 7:12 PM EDT [id number], Clean Catch Generic External Data Provider LAB URINE ORDERAB LES Final Result Performing Organization Address City/[facility]/ZIP Co de Phone Number [facility] [address] [place] [address] [phone] * hCG, Total, Quantitative (07/07/2024 6:12 PM EDT) HCG Quantitative <2 mIU/mL [facility] Comment:Weeks post LMP Appro ximate hCG(Last Menstrual Period) Range (mIU/ml)3 - 4 weeks 9 - 1304 - 5 weeks 75 - 2,6005 - 6 weeks 850 - 20,8006 - 7 weeks 4000 - 100,2007 - 12 weeks 11,500 - 289,39059 - 16 weeks 18,300 - 137,11021 - 29 weeks (2nd trimester) 1,400 - 53,09508 - 41 weeks (3rd trimester) 940 - 60,000The Moralez B- hCG assay is used for the early detection ofpregnancy; it cannot be used to diagnose any conditionunrelated to . If a B-hCG level is not supportedby the clinical evidence, results should be confirmed by analternative method (qualitative urine hCG, for example). 07/07/2024 6:12 PM EDT 07/07/2024 6:14 PM EDT Generic External Data Provider LAB BLOOD ORDERAB LES Final Result Performing Organization Address City/[facility]/ZIP Co de Phone Number [facility] [address] [place] [address] [phone] * Magnesium (07/07/2024 6:12 PM EDT) Magnesium 2.0 1.6 - 2.6 mg/dL [facility] 07/07/2024 6:1 2 PM EDT 07/07/2024 6:14 PM EDT us Generic External Data Provider LAB BLOOD ORDERAB LES Final Result [facility] [address] [place] [address] [phone] * Comprehensive Metabolic Panel (07/07/2024 6:12 PM EDT) Sodium 140 135 - 145 mmol/L [facility] Potassium 4.0 3.3 - 5.1 mmol/L [facility] Chloride 107 96 - 108 mmol/L [facility] Carbon Dioxide 23 22 - 29 mmol/L [facility] Anion Gap 14 12 - 20 [facility] Urea Nitrogen (BUN) 10 9 - 16 mg/dL [facility] Creatinine, Serum 0.84 0.5 - 1.4 mg/dL [facility] Creatinine Clr Calc Pharmacy 85.5 [facility] Comment:Provided height and weight: 157.48 cm,90.2 kg.eGFR (calculated from the MDRD study equation) and eCrCl(calculated from the Cockcroft-Gault equation) are based ondifferent parameters and may not yield comparable results.If eCrCl result is absurd, please check patient'sheight/weight. Estimated Glomerular Filt Rate >60 [facility] Comment:Chronic Kidney Disea se: Estimated GFR < 60 mL/min/1.80w6Ycckdl Kidney Disease: Estimated GFR < 15 mL/min/1.73m2 Glucose 101 60 - 115 mg/dL [facility] Calcium 9.3 8.4 - 10.2 mg/dL [facility] Bilirubin, Total 0.2 0.0 - 1.0 mg/dL [facility] Aspartate Amino Transferase 28 5 - 31 U/L [facility] Alanine Aminotransferase 29 0 - 31 U/L [facility] Total Protein 7.1 6.5 - 8.0 g/dL [facility] Albumin Level 4.3 3.5 - 5.0 g/dL [facility] Alkaline Phosphatase 78 39 - 117 U/L [facility] 07/07/2024 6:12 PM EDT 07/07/2024 6:14 PM EDT us Generic External Data Provider LAB BLOOD ORDERAB LES Final Result [facility] [address] [place] [address] [phone] * (ABNORMAL) CBC auto differential (07/07/2024 6:12 PM EDT) White Blood Count 9.2 4.8 - 10.8 X10*3/uL [facility] Red Blood Count 4.62 4.20 - 5.50 X10*6/uL [facility] Hemoglobin 12.9 12.0 - 16.0 g/dl [facility] Hematocrit 37.6 37.0 - 47.0 % [facility] Mean Corpuscular Volume 81.4 80.0 - 98.0 fL [facility] Mean Corpuscular Hemoglobin 27.9 27.0 - 33.0 pg [facility] Mean Corpuscular HGB Conc 34.3 31.0 - 35.0 g/dl [facility] Red Cell Distribution Width 14.7 11.0 - 16.0 % [facility] Platelet Count 261 160 - 400 X10*3/uL [facility] Mean Platelet Volume 9.6 9.4 - 12.3 fL [facility] Neutrophils Percent Auto 55.2 45 - 73 % [facility] Imm Gran Pct Auto 0.1 0.0 - 0.4 % [facility] Lymphocytes Percent Auto 30.1 20 - 40 % [facility] Monocytes Percent Auto 7.7 2 - 11 % [facility] Eosinophils Percent Auto 6.1(H) 0 - 4 % [facility] Basophils Percent Auto 0.8 0 - 2 % [facility] NRBC Pct Auto 0.0 0.0 - 0.2 /100WBC [facility] Neutrophils Absolute Auto 5.1 2.0 - 8.3 x10*3/uL [facility] Imm Gran Abs Auto 0.01 0.00 - 0.03 X10*3/uL [facility] Lymphocytes Absolute Auto 2.8 1.2 - 4.9 X10*3/uL [facility] Monocytes Absolute Auto 0.7 0.1 - 1.2 X10*3/uL [facility] Eosinophils Absolute Auto 0.6(H) 0.0 - 0.4 X10*3/uL [facility] Basophils Absolute Auto 0.1 0.0 - 0.2 X10*3/uL [facility] NRBC Abs Auto 0.000 0.0 - 0.012 X10*3/uL [facility] 07/07/2024 6:12 PM EDT 07/07/2024 6:14 PM EDT us Generic External Data Provider LAB BLOOD ORDERAB LES Final Result Performing Organization Address City/State/[facility] Co de Phone Number [facility] [address] [place] [address] [phone] documented in this encounter Visit Diagnoses Not on filedocumented in this encounter Additional Health Concerns Assessment Noted Time PHQ-9 Depression Total Score: 6 04/24/19 25 1:43 PM EST documented as of this encounter Care Teams Erosion Control Specialist Relationship Specialty Start Date End Date Alex Sheriff MD [address] [place] [id number] PCP - General Internal Medicine 02/25/13 documented as of this encounter
--- OUTSIDE RECORDS SUMMARY | 2024-07-07 20:04 | XMS_ITS | Encounter Summary ---
Author Organization [employer] Address [address] [place] [address] [address], [place] [address] Care Team Providers Care Sulfate Drier Machine Operator Name Role Phone Alex Sheriff MD Primary Care Provider [phone]- [phone] Encounter Details Date Type Department Care Team ([facility] Contact Info) Description 07/13/2022 Abstract [facility] MED & PEDS [address] [place] [address] Alex Sheriff MD [address] [place] [address] Social History Tobacco Use Types Packs/Day Years [...] Encounters Date Type Department Care Team (Late Contact Info) Description 07/28/2024 1:30 PM EDT Office Visit [facility] MED & PEDS [address] [place] [address] Alex Sheriff MD [address] [place] [address] documented as of this encounter Visit Diagnoses Not on filedocumented in this encounter Care Teams Sulfate Drier Machine Operator Relationship Specialty Start Date End Date Alex Sheriff MD [address] [place] [address] PCP - General Internal Medicine 02/25/13 documented as of this encounter
--- OUTSIDE RECORDS SUMMARY | 2024-07-07 20:04 | XMS_ITS | Encounter Summary ---
Author Organization [employer] Address [address] [place] [address] 7 [place] [address] Care Team Providers Care Tugboat Captain Name Role Phone Alex Sheriff MD Primary Care Provider [phone]- [phone] Encounter Details Date Type Department Care Team (Late Contact Info) Description 10/05/2022 Orders Only [facility] MED & PEDS [address] [place] [address] Alex Sheriff MD [address] [place] [address] Chronic migraine without aura with status migrainosus, [...] Description 07/28/2024 1:30 PM EDT Office Visit [facility] MED & PEDS [address] [place] [address] Alex Sheriff MD [address] [place] [address] documented as of this encounter Visit Diagnoses Diagnosis Chronic migraine without aura with status migrainosus, not intractable- Primary documented in this encounter Care Teams Tugboat Captain Relationship Specialty Start Date End Date Alex Sheriff MD [address] [place] [address] PCP - General Internal Medicine 02/25/13 documented as of this encounter
--- OUTSIDE RECORDS SUMMARY | 2024-07-07 20:04 | XMS_ITS | Encounter Summary ---
Author Organization [employer] Address [address] [place] [address] [address] [place] [address] Care Team Providers Care Vice President Financial Name Role Phone Alex Sheriff MD Primary Care Provider [phone]- [phone] Encounter Details Date Type Department Care Team (Late Contact Info) Description 03/28/2022 Abstract [facility] MED & PEDS [address] [place] [address] Alex Sheriff MD [address] [place] [address] Social History Tobacco Use Types Packs/Day Years [...] 1:30 PM EDT Office Visit [facility] MED & PEDS [address] [place] [address] Alex Sheriff MD [address] [place] [address] documented as of this encounter Visit Diagnoses Not on filedocumented in this encounter Care Teams Vice President Financial Relationship Specialty Start Date End Date Alex Sheriff MD [address] [place] [address] PCP - General Internal Medicine 02/25/13 documented as of this encounter
--- OUTSIDE RECORDS SUMMARY | 2024-07-07 20:04 | XMS_ITS | Encounter Summary ---
Author Organization [employer] Address [address] [facility] 7t [place] [address] Care Team Providers Care Phlebotomist Associate Name Role Phone Alex Sheriff MD Primary Care Provider [phone] Reason for Visit * Reason Onset Date Comments Hospital Follow-up 12/23/2023 Encounter Details Date Type Department Care Team ([facility] st Contact Info) Description 12/23/2023 Telephone [facility] [address] [place] [address] Alex Sheriff MD [address] [place] [address] Hospital Follow-up Social History Tobacco Use Types [...] PM EST Tc from pt requesting a HDF appt. Hospital: [facility] Date of admission: 12/18/2023 Discharge date: 12/22/2023 Diagnosed: Infection kidney *Send message to [place] Clinical Care Coordinators documented in this encounter Plan of Treatment Upcoming Encounters Date Type Department Care Team (Late st Contact Info) Description 07/28/2024 1:30 PM EDT Office Visit [facility]ED[facility] [address] [place] [address] Alex Sheriff MD [address] [place] [address] documented as of this encounter Visit Diagnoses Not on filedocumented in this encounter Care Teams Phlebotomist Associate Relationship Specialty Start Date End Date Alex Sheriff MD [address] [place] [address] PCP - General Internal Medicine 02/25/13 documented as of this encounter
--- OUTSIDE RECORDS SUMMARY | 2024-07-07 20:04 | XMS_ITS | Encounter Summary ---
Author Organization [employer] Address [address] [facility] 7t [place] [address] Care Team Providers Care Cobbler Apprentice Name Role Phone Alex Sheriff MD Primary Care Provider [phone] Reason for Visit * Reason Onset Date Comments Hospital Follow-up 12/18/2023 Encounter Details Date Type Department Care Team ([facility] st Contact Info) Description 12/18/2023 Telephone [facility] [address] [place] [address] Alex Sheriff MD [address] [place] [address] Hospital Follow-up Social History Tobacco Use Types [...] Miscellaneous Notes * Telephone Encounter - Yanira Francse RN - 12/18/2023 4:09 PM EDT Pt is scheduled tomorrow for HDF * Telephone Encounter - Lawanda Fofana - 12/18/2023 10:13 AM EDT Tc from pt requesting a HDF appt. Hospital: [facility] Date of admission: 12/13 Discharge date: 12/16 Diagnosed: Kidney Stone Pt is requesting pain medication. Contact pt at [phone] documented in this encounter Plan of Treatment Upcoming Encounters Date Type Department Care Team (Late st Contact Info) Description 07/28/2024 1:30 PM EDT Office Visit [facility] MED [facility] PED[facility] [address] [place] [address] Alex Sheriff MD [address] [place] [address] documented as of this encounter Visit Diagnoses Not on filedocumented in this encounter Care Teams Cobbler Apprentice Relationship Specialty Start Date End Date Alex Sheriff MD [address] [place] [address] PCP - General Internal Medicine 02/25/13 documented as of this encounter
--- OUTSIDE RECORDS SUMMARY | 2024-07-07 20:04 | XMS_ITS | Encounter Summary ---
Author Organization [employer] Address [address] [place] [address] 7t [place] [address] Care Team Providers Care Sand Analyst Name Role Phone Alex Sheriff MD Primary Care Provider [phone]- [phone] Encounter Details Date Type Department Care Team (Late Contact Info) Description 09/14/2022 Orders Only [facility] MED & PEDS [address] [place] [address] Alex Sheriff MD [address] [place] [address] Chronic migraine without aura without status migrainosus, [...] Description 07/28/2024 1:30 PM EDT Office Visit [facility] MED & PEDS [address] [place] [address] Alex Sheriff MD [address] [place] [address] documented as of this encounter Visit Diagnoses Diagnosis Chronic migraine without aura without status migrainosus, not intractable- Primary documented in this encounter Care Teams Sand Analyst Relationship Specialty Start Date End Date Alex Sheriff MD [address] [place] [phone] PCP - General Internal Medicine 02/25/13 documented as of this encounter
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
[2024-07-07 20:07] VITALS: BP 130/86; PULSE 64; RESP 18; O2SAT 97
[2024-07-07 21:48] VITALS: BP 130/86; PULSE 64; RESP 18; TEMP 36.8; O2SAT 97
== END 2024-07-07 21:49 | disposition home or self-care (01) ==
PROVIDERS: Physician Assistant Medical; Emergency Provider Emergency Medicine Emergency Medical Services; PCP Internal Medicine
DX: N93.8 Other specified abnormal uterine and vaginal bleeding (principal); R10.2 Pelvic and perineal pain; Z79.899 Other long term (current) drug therapy
CPT/HCPCS: 36415; 76830; 76856; 80053; 81001; 83735; 84702; 85025; 99284

== ENCOUNTER → 2024-07-07 18:04 | Outpatient (BNV) | payer OTHER, SELFPAY | PROVIDERS: PCP Internal Medicine; Visit Provider Radiology Diagnostic Radiology | DX: N93.9 Abnormal uterine and vaginal bleeding, unspecified (principal) | CPT/HCPCS: 76830; 76856 ==

== ENCOUNTER 2024-07-10 13:12 | Outpatient (REF) | payer OTHER, SELFPAY ==
--- NOTE | ~2024-07-10 | XR_ITS ---
EXAMINATION: XR FOOT 3 OR MORE VIEWS LEFT HISTORY: deformity of the left foot. COMPARISON: There are no prior studies available for comparison. FINDINGS: Three views of the left foot are submitted. Osseous mineralization is normal. There is no fracture or dislocation. There is mild to moderate hallux valgus deformity of the great toe and mild osteoarthritis of the 1st MTP joint. The soft tissues are unremarkable. XR/XR foot LT min 3V IMPRESSION: Mild to moderate hallux valgus deformity of the great toe. Electronically signed by: Jamin العراقي MD 07/10/2024 01:47 PM EDT
--- OUTSIDE RECORDS SUMMARY | 2024-07-10 13:16 | XMS_ITS | Encounter Summary ---
Author Organization [employer] Address [address] [facility] 7t [place] [address] Care Team Providers Care Radio Director Name Role Phone Alex Sheriff MD Primary Care Provider [phone] Encounter Details Date Type Department Care Team ([facility] st Contact Info) Description 09/20/2023 Orders Only [facility] MED & PEDS [address] [place], [place] [phone] Alex Sheriff MD [address] [place] [address] Social History Tobacco Use Types Packs/Day Years [...] 07/28/2024 1:30 PM EDT Office Visit [facility] MED & PEDS [address] [place] [address] Alex Sheriff MD [address] [place] [address] documented as of this encounter Visit Diagnoses Not on filedocumented in this encounter Care Teams Radio Director Relationship Specialty Start Date End Date Alex Sheriff MD [address] [place] [address] PCP - General Internal Medicine 02/25/13 documented as of this encounter
== END 2024-07-10 13:13 | disposition home or self-care (01) ==
LOC: HO.XRAY 13:12
PROVIDERS: PCP Internal Medicine; Visit Provider Internal Medicine
DX: M21.612 Bunion of left foot (principal)
CPT/HCPCS: 73630

== ENCOUNTER → 2024-07-10 13:16 | Outpatient (BNV) | payer OTHER, SELFPAY | PROVIDERS: PCP Internal Medicine; Visit Provider Radiology Diagnostic Radiology | DX: M20.12 Hallux valgus (acquired), left foot (principal) | CPT/HCPCS: 73630 ==

== ENCOUNTER 2024-07-21 12:02 | Emergency (ER) | payer OTHER, SELFPAY ==
--- NOTE | ~2024-07-21 | US_ITS ---
EXAMINATION: US PELVIS TRANSABDOMINAL AND TRANSVAGINAL HISTORY: pelvic plan and dysmenorrhea COMPARISON: Comparison is made with the prior examination dated 07/07/2024. TECHNIQUE: Transabdominal and endovaginal real-time 2D anna-scale ultrasound was performed. FINDINGS: Uterus: The uterus is normal in size, measuring 10.0 x 4.5 x 6.4 cm. Myometrium has a normal echotexture. There is a posterior uterine fibroid measuring 1.7 x 1.1 x 1.4 cm (previously 1.5 x 0.9 x 1.3 cm). Endometrium: The endometrial stripe measures 21 mm in thickness and is heterogeneous in appearance with multiple cystic areas and increased vascularity. Right ovary: The right ovary measures 1.8 x 0.7 x 0.9 cm. The right ovary is normal in size and echotexture. Left ovary: The left ovary measures 3.3 x 2.4 x 2.4 cm. There is a 1.7 x 1.4 x 1.5 cm septated cyst and an additional 1.3 x 0.8 x 1.0 cm cyst. Pelvic fluid: none. US/US pelvic and transvaginal IMPRESSION: Abnormally thickened endometrial stripe which is heterogeneous in appearance with multiple cystic areas and increased vascularity. Neoplasm is not excluded. Endometrial sampling should be considered. Electronically signed by: Jamin العراقي MD 07/21/2024 01:48 PM EDT
[2024-07-21 12:11] VITALS: BP 155/74; PULSE 73; RESP 20; TEMP 36.3; O2SAT 99; BMI 36.1
--- NOTE | 2024-07-21 12:13 | ED_ITS ---
HPI - General Adult General Chief complaint: Vaginal Bleeding Stated complaint: Vaginal bleeding since May Time Seen by Provider: 07/21/24 17:42 History of Present Illness ED Provider: Wesley CASTELLANOS narrative: the patient is a 49-year-old woman who says that she has been having abnormal vaginal bleeding since mid May. she says that she has seen her PCP and has been referred to gynecology but has not yet seen a psychopaedic nurse. She says that last night in the middle of the night her bleeding became more brisk and she comes to the emergency room because she has had much heavier bleeding since the middle of the night last night. No significant abdominal pain. No fever, sweats, chills. Related Data Home Medications ?Medication ?Instructions ?Recorded ?Confirmed diltiazem HCl 300 mg 300 mg PO DAILY 07/16/22 01/02/24 capsule,extended release 24 hr lisinopril 40 mg tablet 40 mg PO DAILY 07/16/22 01/02/24 omeprazole 20 mg capsule,delayed 20 mg PO DAILY@0630 07/16/22 01/02/24 release cyclobenzaprine 10 mg tablet 10 mg PO TID PRN Muscle Pain 12/15/23 01/02/24 fexofenadine 180 mg tablet 180 mg PO DAILY 12/15/23 01/02/24 metoprolol succinate 100 mg 50 mg PO DAILY 12/15/23 01/02/24 tablet,extended release 24 hr paroxetine HCl 10 mg tablet 10 mg PO DAILY 12/15/23 01/02/24 vitamin B complex 1 cap PO DAILY 12/15/23 01/02/24 semaglutide (weight loss) 0.25 0.25 mg subcut QWEEK 12/19/23 01/02/24 mg/0.5 mL subcutaneous pen injector (Wegovy) Previous Rx's ?Medication ?Instructions ?Recorded cefuroxime axetil 500 mg tablet 500 mg PO BID #20 tabs 12/17/23 tranexamic acid 650 mg tablet 1,300 mg (2 x 650 mg) PO TID 5 07/21/24 days #30 tabs Allergies Allergy/AdvReac Type Severity Reaction Status Date / Time morphine [MORPHINE] Allergy Intermediate PAPLITATIONS, Verified 07/21/24 12:15 increased heart rate Review of Systems 2 Review of Systems: Yes all other systems are reviewed and are negative PMFSH Past Medical History Medical History Post-op pain SVT (supraventricular tachycardia) HTN (hypertension) Surgical History Hx of cystoscopy Social History Social History Household Members: Spouse Housing: Apartment Are you a primary palliative care nurse practitioner to a significant other at home: No Do you presently have visiting nurse or other home services: No Alcohol intake: never Patient Tobacco Use Status: Former Tobacco user Tobacco use type: Cigarette Years Smoked: 11 Second Hand Smoke Exposure: No Advance Directives: Yes Advance Directives on File: Yes Advance Directives Date on File: 12/23/23 service: No Current occupational status: unemployed 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 Physical Exam ED Vital Signs: Vital Signs - 24 hr 07/21/24 12:11 07/21/24 17:44 07/21/24 18:38 Temperature 97.3 F 97.8 F 96.9 F Pulse Rate 73 74 71 Respiratory Rate 20 16 16 Blood Pressure 155/74 H 117/66 92/43 L Pulse Oximetry 99 99 95 Oxygen Delivery Method Room Air Room Air Room Air 07/21/24 19:43 07/21/24 20:45 07/21/24 20:52 Temperature 97 F 97 F Pulse Rate 72 68 68 Respiratory Rate 16 16 16 Blood Pressure 132/84 127/81 127/81 Pulse Oximetry 98 98 Oxygen Delivery Method Room Air Room Air Room Air BMI result Body Mass Index 36.1 Const Other: The patient was awake, alert, pleasant, cooperative. She did not seem in acute distress. Orientation/consciousness: patient oriented x3 HENMT Other: Face is symmetrical, mucous membranes moist Eyes General: appearance normal, both eyes and all related structures Neck Neck: Yes normal visual inspection and Yes full ROM Resp Effort & Inspection: normal respiratory effort Auscultation: clear to auscultation bilaterally Cardio Rate: regular rate Rhythm: regular rhythm Heart sounds: S1 normal heart sound present and S2 normal heart sound present GI Other: the abdomen was soft and nontender Other: a pelvic exam was done after the patient had received IV ketorolac and TXA. The patient had reported that her bleeding seemed to have slowed after receiving these medications. Speculum exam revealed some friability at the cervical os but with only minimal ongoing bleeding. There was no cervical motion tenderness or adnexal tenderness on exam. Skin Other: Skin is dry and unremarkable Neuro General: patient oriented x3, gait normal, tone normal, moves all extremities, no focal motor deficits and CN's II-XI intact bilaterally Extrem General: Yes no pedal edema and Yes no calf tenderness Course Course Course Narrative: RME, this is a rapid medical exam performed by Rock Burns please refer to primary provider for complete H&P- 49-year-old female presents for evaluation of vaginal bleeding and pelvic pain. Symptoms have been on and off since May. she called her doctor but was waiting on for a referral to OBGYN and they never returned a call. Plan for labs, urinalysis, pelvic ultrasound and a type and screen was ordered given the reported heavy flow for 2 months Medications Administered Discontinued Medications Generic Name Dose Route Start Last Admin Trade Name Freq PRN Reason Stop Dose Admin Tranexamic Acid 1,000 mg/ 60 mls @ 360 mls/hr 07/21/24 18:03 07/21/24 20:46 Sodium Chloride IV 07/21/24 18:12 Infused ONCE ONE Infusion Ketorolac Tromethamine 15 mg 07/21/24 18:03 07/21/24 18:13 Ketorolac Tromethamine 15 Mg/Ml Vial IVPUSH 07/21/24 18:04 15 mg ONCE ONE Administration Medical Decision Making Medical Decision Making [facility] Narrative: the patient is a 49-year-old female who reports several weeks of vaginal bleeding. She has not yet seen a psychopaedic nurse. She comes to the emergency room today because her bleeding was heavier since last night. She is hemodynamically stable. She is not . Her hemoglobin is 11.6. Her hemoglobin 2 weeks ago was 12.9. The patient was reassured that she does not require a blood transfusion. She was given IV ketorolac and IV TXA to try to help reduce her bleeding. She received these medications. Subsequently she felt that her bleeding was less brisk. At that point I performed a pelvic exam. This revealed a slightly friable cervix but no significant ongoing bleeding. At that point I felt she was stable for discharge. She will be prescribed a 5 day course of TXA 1300 mg t.i.d.. She is given the contact information for [facility]. She should also contact your primary care doctor. Apparently her primary care doctor's office has been trying to make a referral for Gynecology. She should find out the status of that referral. She should return if worse. Lab Data 07/21/24 13:46 07/21/24 13:46 Labs: Lab Results 07/21/24 07/21/24 Range/Units 13:46 16:12 WBC 8.6 (4.8-10.8) X10*3/uL RBC 4.21 (4.20-5.50) X10*6/uL Hgb 11.6 L (12.0-16.0) g/dl Hct 34.4 L (37.0-47.0) % MCV 81.7 (80.0-98.0) fL MCH 27.6 (27.0-33.0) pg MCHC 33.7 (31.0-35.0) g/dl RDW 14.7 (11.0-16.0) % Plt Count 281 (160-400) X10*3/uL MPV 9.6 (9.4-12.3) fL Immature Gran % (Auto) 0.2 (0.0-0.4) % Neut % (Auto) 62.6 (45-73) % Lymph % (Auto) 25.8 (20-40) % Young % (Auto) 7.0 (2-11) % Eos % (Auto) 3.7 (0-4) % Baso % (Auto) 0.7 (0-2) % Lymph # (Auto) 2.2 (1.2-4.9) X10*3/uL Young # (Auto) 0.6 (0.1-1.2) X10*3/uL Eos # (Auto) 0.3 (0.0-0.4) X10*3/uL Baso # (Auto) 0.1 (0.0-0.2) X10*3/uL Abs Immat Gran (auto) 0.02 (0.00-0.03) X10*3/uL Absolute Neuts (auto) 5.4 (2.0-8.3) x10*3/uL Absolute Nucleated RBC 0.000 (0.0-0.012) X10*3/uL Nucleated RBC % (auto) 0.0 (0.0-0.2) /100WBC Sodium 140 (135-145) mmol/L Potassium 3.7 (3.3-5.1) mmol/L Chloride 112 H (96-108) mmol/L Carbon Dioxide 22 (22-29) mmol/L Anion Gap 10 L (12-20) BUN 12 (9-16) mg/dL Creatinine 0.76 (0.5-1.4) mg/dL Estim Creat Clear Calc 94.1 Estimated GFR > 60 Random Glucose 122 H (60-115) mg/dL Calcium 8.8 (8.4-10.2) mg/dL Total Bilirubin 0.3 (0.0-1.0) mg/dL AST 26 (5-31) U/L ALT 30 (0-31) U/L Alkaline Phosphatase 71 (39-117) U/L Total Protein 7.0 (6.5-8.0) g/dL Albumin 4.3 (3.5-5.0) g/dL Lipase 21 (8-78) U/L Beta HCG, Quant < 2 mIU/mL Urine Color Yellow Urine Appearance Clear Urine pH 5.5 (5.0-9.0) Ur Specific [place] 1.025 (1.005-1.025) Urine Protein Negative (Neg-Trace) mg/dL Urine Glucose (UA) Negative (Negative) mg/dL Urine Ketones Negative (Negative) mg/dL Urine Blood Large (3+) H (Negative) Urine Nitrite Negative (Negative) Ur Leukocyte Esterase Negative (Negative) Urine RBC >20 H (0-2) /HPF Urine WBC 0-5 (0-5) /HPF Ur Squamous Epith Cells 0-2 (0-2) /HPF Urine Bacteria None Seen (None Seen) Hyaline Casts 0-2 (0-2) /LPF Blood Type B Positive Antibody Screen NEGATIVE Discharge Plan Discharge Clinical Impression: Abnormal uterine and vaginal bleeding, unspecified Patient Disposition: Home, Self-Care Additional Instructions: At the moment your blood counts are sufficiently good that you are not close to needing a blood transfusion. I have sent a medication to your pharmacy to help reduce the degree of vaginal bleeding. Please take this medication 3 times a day for the next 5 days as prescribed. Please contact the [facility] office in the morning to see if you can get a follow up appointment for more definitive treatment of this problem. Additionally contact your regular doctor's office to see if they have any update on the referral they has been trying to make for you. Return to the emergency room if significantly worse. Prescriptions: New tranexamic acid 650 mg tablet 1,300 mg PO TID 5 Days Qty: 30 0RF No Action cyclobenzaprine 10 mg tablet 10 mg PO TID PRN (Reason: Muscle Pain) metoprolol succinate 100 mg tablet extended release 24 hr 50 mg PO DAILY fexofenadine 180 mg tablet 180 mg PO DAILY vitamin B complex Capsule 1 cap PO DAILY paroxetine HCl 10 mg tablet 10 mg PO DAILY cefuroxime axetil 500 mg tablet 500 mg PO BID Qty: 20 0RF omeprazole 20 mg Capsule,Delayed Release(Dr/Ec) 20 mg PO DAILY@0630 lisinopril 40 mg Tablet 40 mg PO DAILY diltiazem HCl 300 mg Capsule,Extended Release 24hr 300 mg PO DAILY Wegovy 0.25 mg/0.5 mL pen injector 0.25 mg subcut QWEEK Rx Instructions: HAS NOT STARTED YET Referrals: [facility] [Provider Group] ( Abnormal vaginal bleeding) Alex Sheriff MD [Primary Care Provider] - Interventions: ED Discharge Assessment Last Done: 07/21/24 20:52 Discharge Date/Time: 07/21/24 20:53 Print Language: Austrian
[2024-07-21 13:58] LABS: MANUAL DIFF FLAG NO
[2024-07-21 13:59] LABS: Basophils Absolute Auto 0.1 X10*3/uL (0.0-0.2); Basophils Percent Auto 0.7 % (0-2); Eosinophils Absolute Auto 0.3 X10*3/uL (0.0-0.4); Eosinophils Percent Auto 3.7 % (0-4); Hematocrit 34.4 % (37.0-47.0); Hemoglobin 11.6 g/dl (12.0-16.0); Imm Gran Abs Auto 0.02 X10*3/uL (0.00-0.03); Imm Gran Pct Auto 0.2 % (0.0-0.4); Lymphocytes Absolute Auto 2.2 X10*3/uL (1.2-4.9); Lymphocytes Percent Auto 25.8 % (20-40); Mean Corpuscular HGB Conc 33.7 g/dl (31.0-35.0); Mean Corpuscular Hemoglobin 27.6 pg (27.0-33.0); Mean Corpuscular Volume 81.7 fL (80.0-98.0); Mean Platelet Volume 9.6 fL (9.4-12.3); Monocytes Absolute Auto 0.6 X10*3/uL (0.1-1.2); Neutrophils Absolute Auto 5.4 x10*3/uL (2.0-8.3); Neutrophils Percent Auto 62.6 % (45-73); Platelet Count 281 X10*3/uL (160-400); Red Blood Count 4.21 X10*6/uL (4.20-5.50); Red Cell Distribution Width 14.7 % (11.0-16.0); White Blood Count 8.6 X10*3/uL (4.8-10.8)
[2024-07-21 14:32] LABS: Alanine Aminotransferase 30 U/L (0-31); Albumin Level 4.3 g/dL (3.5-5.0); Alkaline Phosphatase 71 U/L (39-117); Anion Gap 10 (12-20); Aspartate Amino Transferase 26 U/L (5-31); Bilirubin Total 0.3 mg/dL (0.0-1.0); Blood Urea Nitrogen 12 mg/dL (9-16); Calcium 8.8 mg/dL (8.4-10.2); Carbon Dioxide 22 mmol/L (22-29); Chloride 112 mmol/L (96-108); Creatinine Clr Calc Pharmacy 94.1; Estimated Glomerular Filt Rate > 60; Glucose Random 122 mg/dL (60-115); Lipase 21 U/L (8-78); Potassium 3.7 mmol/L (3.3-5.1); Sodium 140 mmol/L (135-145)
[2024-07-21 14:35] LABS: HCG Quantitative < 2 mIU/mL
[2024-07-21 16:22] LABS: Appearance Urine Clear; Color Urine Yellow; Glucose Urine UA Negative (Negative); Leukocyte Esterase Urine Negative (Negative); Nitrite Urine Negative (Negative); PH 5.5 (5.0-9.0); Specific Gravity - Urine 1.025 (1.005-1.025); UMIC TRIGGER UACC YES; Urine Blood Large (3+) (Negative); Urine Ketones Negative (Negative); Urine Protein Negative (Neg-Trace)
[2024-07-21 16:24] LABS: Bacteria Urine None Seen (None Seen); Hyaline Casts Urine 0-2 /LPF (0-2); RBC Urine >20 /HPF (0-2); Squamous Epithelial Cell Urine 0-2 /HPF (0-2); WBC Urine 0-5 /HPF (0-5)
[2024-07-21 17:44] VITALS: BP 117/66; PULSE 74; RESP 16; TEMP 36.6; O2SAT 99
[2024-07-21] MEDS: Ketorolac Tromethamine 15 MG/ML VIAL IVPUSH (18:13)
--- OUTSIDE RECORDS SUMMARY | 2024-07-21 18:24 | XMS_ITS | Clinical Summary ---
Author Organization [facility] Address [address] [place] [id number] Care Team Providers Care Supply Planner Name Role Phone Alex Sheriff MD Primary Care Provider [phone] Allergies Active Allergy Reactions Criticality Noted Date Comments Morphine And Codeine 04/14/2020 Medications lisinopril (PRINIVIL,ZESTR IL) 40 MG tabletIndicatio ns:Hypertension Take 1 tablet by mouth 1 (one) time each day Active dilTIAZem (TIAZAC) 300 MG 24 hr capsuleIndicati ons:Hypertensio n Take 300 mg by mouth 1 (one) time each day Active butalbital-acet aminophen-caffe ine-codeine (FIORICET WITH CODEINE) 74-081-28-30 MG per capsuleIndicati ons:Hypertensio n Take 1 [...] age to complete this topic Insurance [address] [place] [id number] [facility] ([id number]) DONNA EGNA [phone] [facility] ([id number]) DONNA EGAN [phone] Care Teams Supply Planner Relationship Specialty Start Date End Date Alex Sheriff MD PCP - General 02/29/20
[2024-07-21 18:38] VITALS: BP 92/43; PULSE 71; RESP 16; TEMP 36.1; O2SAT 95
[2024-07-21] MEDS: Tranexamic Acid 1,000 MG in 0.9 % Sodium Chloride 50 ML 360 MG IV (18:57)
[2024-07-21 19:43] VITALS: BP 132/84; PULSE 72; RESP 16
[2024-07-21 20:45] VITALS: BP 127/81; PULSE 68; RESP 16; TEMP 36.1; O2SAT 98
[2024-07-21 20:52] VITALS: BP 127/81; PULSE 68; RESP 16; TEMP 36.1; O2SAT 98
== END 2024-07-21 20:53 | disposition home or self-care (01) ==
PROVIDERS: Physician Assistant; Emergency Provider Emergency Medicine; PCP Internal Medicine
DX: N93.9 Abnormal uterine and vaginal bleeding, unspecified (principal); I10 Essential (primary) hypertension; J45.909 Unspecified asthma, uncomplicated; Z87.891 Personal history of nicotine dependence; Z79.899 Other long term (current) drug therapy
CPT/HCPCS: 36415; 76830; 76856; 80053; 81001; 83690; 84702; 85025; 86850; 86900; 86901; 96365; 96366; 96375; 99285; J1885

== ENCOUNTER → 2024-07-21 12:13 | Outpatient (BNV) | payer OTHER, SELFPAY | PROVIDERS: PCP Internal Medicine; Visit Provider Radiology Diagnostic Radiology | DX: N85.00 Endometrial hyperplasia, unspecified (principal) | CPT/HCPCS: 76830 ==

== ENCOUNTER 2024-07-29 10:42 | Outpatient (REF) | payer OTHER, SELFPAY ==
[2024-07-29 16:18] LABS: Bacterial Vaginosis PCR NEGATIVE (Negative); Candida Group PCR NOT DETECTED (Not Detect); Candida glab krusei PCR NOT DETECTED (Not Detect); Trichomonas vaginalis PCR NOT DETECTED (Not Detect)
[2024-07-29 16:50] LABS: CT PCR NOT DETECTED (Not Detect.); NG PCR NOT DETECTED (Not Detect.)
== END 2024-07-29 10:43 | disposition home or self-care (01) ==
LOC: HO.LNP 10:42
PROVIDERS: PCP Internal Medicine; Visit Provider Advanced Practice Midwife
DX: N93.9 Abnormal uterine and vaginal bleeding, unspecified (principal); R93.89 Abnormal findings on diagnostic imaging of other specified body structures
CPT/HCPCS: 81515; 87491; 87591; 99202

== ENCOUNTER 2024-07-29 10:42 | Outpatient (AMB) | payer OTHER, SELFPAY ==
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
[2024-07-29 10:52] VITALS: BP 124/78; BMI 36.2
--- OUTSIDE RECORDS SUMMARY | 2024-07-29 12:09 | XMS_ITS | Encounter Summary ---
Author Organization [employer] Address [address] [facility] [address] [place] [address] Care Team Providers Care Tracer Powder Blender Name Role Phone Alex Sheriff MD Primary Care Provider [phone] Encounter Details Date Type Department Care Team ([facility] st Contact Info) Description 09/20/2023 Orders Only [facility] [address], [place] [phone] Alex Sheriff MD [address] [place] [address] Social History Tobacco Use Types Packs/Day Years [...] Care Team (Late st Contact Info) Description 09/24/2024 9:00 AM EDT Office Visit [facility] [address] [place] [address] Alex Sheriff MD [address] [place] [address] documented as of this encounter Visit Diagnoses Not on filedocumented in this encounter Care Teams Tracer Powder Blender Relationship Specialty Start Date End Date Alex Sheriff MD [address] [place] [address] PCP - General Internal Medicine 02/25/13 documented as of this encounter
== END 2024-07-29 11:30 | disposition home or self-care (01) ==
LOC: HO.HWS 10:42
PROVIDERS: PCP Internal Medicine; Visit Provider Advanced Practice Midwife
DX: N93.9 Abnormal uterine and vaginal bleeding, unspecified (principal); R93.89 Abnormal findings on diagnostic imaging of other specified body structures
CPT/HCPCS: 99203

== ENCOUNTER 2024-08-02 18:29 | Inpatient (IN) | payer OTHER, SELFPAY ==
--- NOTE | ~2024-08-02 | CT_ITS ---
CLINICAL HISTORY: diverticulitis? CT abdomen and pelvis with contrast Comparison: US - US PELVIC AND TRANSVAGINAL - 07/07/24 18:28 EDT US/SR - US ABDOMEN LIMITED - 07/25/21 21:29 EDT Findings: The lung bases are clear. The gallbladder and solid organs are within normal limits. No renal stones. No bowel obstruction, pneumoperitoneum, or pneumatosis. Extensive diverticulosis throughout the colon. Mild mesenteric stranding surrounding the ascending colon. Moderate fluid is noted within the endometrium measuring 1.7 cm in thickness. Normal appendix. The bones are intact. IMPRESSION: Extensive diverticulosis throughout the colon with mild mesenteric stranding surrounding the ascending colon concerning for acute uncomplicated diverticulitis. Moderate amount of fluid/thickening of the endometrium measuring 1.7 cm in maximum width. Correlate with current menstrual cycle. This document has been electronically signed by: Kasia Terry MD on 08/02/2024 22:19:38
[2024-08-02 18:58] VITALS: BP 137/86; PULSE 112; RESP 20; TEMP 37.9; O2SAT 97; BMI 34.8
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
[2024-08-02] MEDS: Ondansetron ODT 4 MG TAB.RAPDIS TRANSLINGU (19:02)
--- NOTE | 2024-08-02 19:03 | PC.NURSE ---
odt zofran given per mar
[2024-08-02 19:12] LABS: MANUAL DIFF FLAG NO
[2024-08-02 19:14] LABS: Basophils Absolute Auto 0.1 X10*3/uL (0.0-0.2); Basophils Percent Auto 0.3 % (0-2); Eosinophils Percent Auto 0.1 % (0-4); Hematocrit 32.1 % (37.0-47.0); Hemoglobin 10.9 g/dl (12.0-16.0); Imm Gran Abs Auto 0.04 X10*3/uL (0.00-0.03); Imm Gran Pct Auto 0.3 % (0.0-0.4); Lymphocytes Absolute Auto 1.8 X10*3/uL (1.2-4.9); Lymphocytes Percent Auto 12.6 % (20-40); Mean Corpuscular Hemoglobin 26.8 pg (27.0-33.0); Mean Corpuscular Volume 79.1 fL (80.0-98.0); Mean Platelet Volume 9.2 fL (9.4-12.3); Monocytes Absolute Auto 0.8 X10*3/uL (0.1-1.2); Monocytes Percent Auto 5.6 % (2-11); Neutrophils Absolute Auto 11.7 x10*3/uL (2.0-8.3); Neutrophils Percent Auto 81.1 % (45-73); Platelet Count 299 X10*3/uL (160-400); Red Blood Count 4.06 X10*6/uL (4.20-5.50); Red Cell Distribution Width 14.6 % (11.0-16.0); White Blood Count 14.4 X10*3/uL (4.8-10.8)
[2024-08-02 19:29] LABS: Alanine Aminotransferase 21 U/L (0-31); Albumin Level 4.4 g/dL (3.5-5.0); Alkaline Phosphatase 75 U/L (39-117); Anion Gap 15 (12-20); Aspartate Amino Transferase 20 U/L (5-31); Bilirubin Direct 0.2 mg/dL (0.0-0.5); Bilirubin Total 0.4 mg/dL (0.0-1.0); Blood Urea Nitrogen 6 mg/dL (9-16); Calcium 9.3 mg/dL (8.4-10.2); Carbon Dioxide 20 mmol/L (22-29); Chloride 108 mmol/L (96-108); Creatinine Clr Calc Pharmacy 89.9; Estimated Glomerular Filt Rate > 60; Glucose Random 107 mg/dL (60-115); Potassium 3.3 mmol/L (3.3-5.1); Sodium 140 mmol/L (135-145); Total Protein 7.1 g/dL (6.5-8.0)
[2024-08-02 19:50] LABS: Influenza A PCR NEGATIVE (Negative); Influenza B PCR NEGATIVE (Negative); Resp Syncy Virus RNA Qual PCR NEGATIVE (Negative); SARS COV2 PCR INHOUSE NEGATIVE (Negative)
--- OUTSIDE RECORDS SUMMARY | 2024-08-02 20:03 | XMS_ITS | Encounter Summary ---
Author Organization [employer] Address [address] [place] [address] Care Team Providers Care Motion Picture Operator Name Role Phone Alex Sheriff MD Primary Care Provider [phone] Encounter Details Date Type Department Care Team ([facility] st Contact Info) Description 09/20/2023 Orders Only [facility] [address], [place] [id number] Alex Sheriff MD [address] [place] [address] Social History Tobacco Use Types Packs/Day Years [...] Description 09/24/2024 9:00 AM EDT Office Visit [facility] [address] [place] [address] Alex Sheriff MD [address] [place] [address] documented as of this encounter Visit Diagnoses Not on filedocumented in this encounter Care Teams Motion Picture Operator Relationship Specialty Start Date End Date Alex Sheriff MD [address] [place] [address] PCP - General Internal Medicine 02/25/13 documented as of this encounter
[2024-08-02] MEDS: Acetaminophen 325 MG TABLET 975 MG PO (20:55)
[2024-08-02] MEDS: SODIUM CHLORIDE 2676 ML IV (20:55)
[2024-08-02] MEDS: cefTRIAXone sodium 2 GM VIAL IVPUSH (20:58)
--- NOTE | 2024-08-02 20:58 | PC.NURSE ---
BC labels unable to be scanned d/t scanner malfunction, times written on all BC vials - 2049 & 2054 by BALBINA Goff. Abx scanned after BC drawn, fluids now running.
[2024-08-02 21:15] LABS: HCG Quantitative < 2 mIU/mL
[2024-08-02 21:16] LABS: Lactic Acid 0.8 mmol/L (0.5-2.0)
[2024-08-02] MEDS: iohexoL 350 MG/ML 100 ML INFUS..BTL 85 ML IV (21:19)
[2024-08-02 21:59] LABS: Appearance Urine Clear; Color Urine Yellow; Glucose Urine UA Negative (Negative); Leukocyte Esterase Urine Negative (Negative); Nitrite Urine Negative (Negative); PH 7.5 (5.0-9.0); Specific Gravity - Urine 1.025 (1.005-1.025); UMIC TRIGGER UACC YES; Urine Blood Large (3+) (Negative); Urine Ketones Negative (Negative); Urine Protein Negative (Neg-Trace)
[2024-08-02 22:00] LABS: UPreg QC Valid YES; Urine Pregnancy NEGATIVE (NEGATIVE)
[2024-08-02 22:03] LABS: Bacteria Urine None Seen (None Seen); Hyaline Casts Urine 0-2 /LPF (0-2); Squamous Epithelial Cell Urine 0-2 /HPF (0-2); WBC Urine 0-5 /HPF (0-5)
[2024-08-02 22:07] VITALS: BP 130/81; PULSE 89; RESP 16; TEMP 36.8; O2SAT 98
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
[2024-08-02 23:43] VITALS: BP 138/88; PULSE 81; RESP 19; TEMP 36.6; O2SAT 98
[2024-08-02] MEDS: Piperacillin Sodium/Tazobactam 4.5 GM in 0.9 % Sodium Chloride 100 ML IV (23:46)
[2024-08-02] MEDS: HYDROmorphone HCl 1 MG/ML SYRINGE IVPUSH (23:46)
[2024-08-02] MEDS: metroNIDAZOLE/NS 500 MG/100 ML PIGGYBACK 100 MG IV (23:53)
[2024-08-02 23:59] VITALS: BP 145/94; PULSE 83; RESP 16; O2SAT 94
--- NOTE | 2024-08-03 00:06 | PC.NURSE ---
Pt given ice chips per request and MD maloney. Also provided with pillow at this time.
[2024-08-03 00:14] VITALS: BP 134/86; PULSE 82; RESP 14; O2SAT 94
[2024-08-03] MEDS: ondansetron HCL 4 MG/2 ML VIAL IVPUSH ×3 (00:44→16:00)
[2024-08-03] MEDS: Lactated Ringers 1,000 ML 100 ML IVCONT ×3 (00:46→20:10)
[2024-08-03] MEDS: HYDROmorphone HCl 1 MG/ML SYRINGE 0.5 MG IVPUSH ×2 (03:56→09:34)
[2024-08-03 04:56] LABS: MANUAL DIFF FLAG NO
[2024-08-03 04:59] LABS: Basophils Percent Auto 0.3 % (0-2); Eosinophils Percent Auto 0.2 % (0-4); Hematocrit 29.1 % (37.0-47.0); Hemoglobin 9.7 g/dl (12.0-16.0); Imm Gran Abs Auto 0.03 X10*3/uL (0.00-0.03); Imm Gran Pct Auto 0.3 % (0.0-0.4); Lymphocytes Absolute Auto 1.4 X10*3/uL (1.2-4.9); Lymphocytes Percent Auto 13.2 % (20-40); Mean Corpuscular HGB Conc 33.3 g/dl (31.0-35.0); Mean Corpuscular Hemoglobin 26.9 pg (27.0-33.0); Mean Corpuscular Volume 80.6 fL (80.0-98.0); Mean Platelet Volume 9.4 fL (9.4-12.3); Monocytes Absolute Auto 0.6 X10*3/uL (0.1-1.2); Monocytes Percent Auto 5.7 % (2-11); Neutrophils Absolute Auto 8.4 x10*3/uL (2.0-8.3); Neutrophils Percent Auto 80.3 % (45-73); Platelet Count 252 X10*3/uL (160-400); Red Blood Count 3.61 X10*6/uL (4.20-5.50); Red Cell Distribution Width 14.9 % (11.0-16.0); White Blood Count 10.5 X10*3/uL (4.8-10.8)
[2024-08-03 05:17] LABS: Anion Gap 12 (12-20); Blood Urea Nitrogen 5 mg/dL (9-16); Calcium 7.8 mg/dL (8.4-10.2); Carbon Dioxide 20 mmol/L (22-29); Chloride 111 mmol/L (96-108); Creatinine Clr Calc Pharmacy 105.6; Estimated Glomerular Filt Rate > 60; Glucose Random 120 mg/dL (60-115); Potassium 3.4 mmol/L (3.3-5.1); Sodium 140 mmol/L (135-145)
[2024-08-03] MEDS: Piperacillin Sodium/Tazobactam 4.5 GM in 0.9 % Sodium Chloride 100 ML IV ×4 (05:46→23:05)
[2024-08-03 05:49] VITALS: BP 138/88; PULSE 79; RESP 17; TEMP 36.6; O2SAT 98
[2024-08-03] MEDS: Acetaminophen 325 MG TABLET 650 MG PO (05:55)
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
--- NOTE | 2024-08-03 08:57 | PHA.MEDREC ---
Addendum entered by Misael Witt RPh 08/03/24 09:24: MED REC REVIEWED BY [facility] Original Note: Pharmacy Consult ? Medication Reconciliation Pharmacy has completed the medication reconciliation. Spoke with pt and she confirmed her medications. Pt confirmed she still takes the Metoprolol 100mg tab and states shes been cutting them in half for a while and still has some at home. She confirmed she finish the Tranexamic 650mg regimen last week.
[2024-08-03 09:38] VITALS: BP 166/105; PULSE 102; RESP 18; TEMP 36.4; O2SAT 100
--- NOTE | 2024-08-03 09:42 | PC.NURSE ---
vomiting stomach contents. medicated for pain,
--- NOTE | 2024-08-03 10:37 | PC.NURSE ---
pt sleeping, no further vomiting was reported by covering RN.
--- NOTE | 2024-08-03 10:57 | MHC.CM.PN ---
PT LIVES WITH IS INDEPENDENT HAS OWN RIDE [place] DC PLAN HOME N/S
[2024-08-03 14:30] VITALS: BP 163/98; PULSE 89; RESP 16; TEMP 36.3; O2SAT 100
[2024-08-03 15:39] VITALS: BP 155/80; PULSE 75; RESP 18; TEMP 36.6; O2SAT 99
[2024-08-03] MEDS: Acetaminophen 1,000 MG/100 ML PIGGYBACK 400 MG IV ×2 (16:37→22:48)
--- NOTE | 2024-08-03 16:47 | P.PNIM_ITS ---
Subjective Subjective Date of Service: 08/03/24 Interval History: Diverticulitis Review of Systems Patient still feels significant abdominal pain, also feel nauseated unable to tolerate diet. Review of Systems: Yes all other systems are reviewed and are negative Physical Exam 2 Vital Signs: Vital Signs: Last Vital Signs Temp 97.8 F 08/03/24 15:39 Pulse 75 08/03/24 15:39 Resp 18 08/03/24 15:39 BP 155/80 H 08/03/24 15:39 Pulse Ox 99 08/03/24 15:39 O2 Del Method Room Air 08/03/24 15:39 BMI result Body Mass Index 34.8 Appearance: Alert.? Oriented X3. cvs: rrr, [id number] , no murmur res: clear to auscultation ,no rhonchii or wheezing abd: no rebound or guarding ,right sided lower abd pain, bs present. ext pulses present , no cyanosis . neuro: axo3 , nonfocal. Objective Data Active Medications Calcium Carbonate (Calcium Carbonate 750 Mg Tab.Chew) 750 mg PO Q4H PRN PRN Reason: Heartburn Enoxaparin Sodium (Enoxaparin Sodium 40 Mg/0.4 Ml Syringe) 40 mg SUBCUT Q24H YONATHAN Last Admin: 08/03/24 10:06 Dose: Not Given Documented By: JEFRY Non-Admin Reason: Patient Refused Comments: Pt is ambulating in unit Hydromorphone HCl (Hydromorphone Hcl 1 Mg/Ml Syringe) 0.5 mg IVPUSH Q4H PRN; Protocol PRN Reason: Pain, Severe (Pain Scale 7-10) Last Admin: 08/03/24 09:34 Dose: 0.5 mg Documented By: THALIA Piperacillin Sod/Tazobactam (Sod 4.5 gm/ Sodium Chloride) 100 mls @ 200 mls/hr IV Q6H YONATHAN Last Infusion: 08/03/24 11:34 Dose: Infused Documented By: PADDY-SUNDEEP Lactated Ringer's (Lr) 1,000 mls @ 100 mls/hr IVCONT .Q10H YONATHAN Last Admin: 08/03/24 10:06 Dose: 100 mls/hr Documented By: JEFRY Acetaminophen (Ofirmev) 1,000 mg in 100 mls @ 400 mls/hr IV Q6H YONATHAN Last Admin: 08/03/24 16:37 Dose: 400 mls/hr Documented By: ROMAN Magnesium Hydroxide (Milk Of Magnesia 30 Ml Oral.Susp) 30 ml PO DAILY PRN PRN Reason: Constipation Melatonin (Melatonin 3 Mg Tablet) 6 mg PO BEDTIME PRN PRN Reason: Insomnia Ondansetron HCl (Ondansetron Hcl 4 Mg/2 Ml Vial) 4 mg IVPUSH Q8H PRN PRN Reason: Nausea and Vomiting Last Admin: 08/03/24 16:00 Dose: 4 mg Documented By: VY Sodium Chloride (0.9 % Sodium Chloride Flush 3 Ml Syringe) 3 ml IVFLUSH QSHIFT [facility] Last Admin: 08/03/24 16:00 Dose: Not Given Documented By: VY Non-Admin Reason: IV Running Labs 08/03/24 04:32 08/03/24 04:32 Labs: Laboratory Results - last 24 hr 08/02/24 08/02/24 08/02/24 19:08 20:55 21:51 MCV 79.1 L MCH 26.8 L MCHC 34.0 RDW 14.6 Plt Count 299 MPV 9.2 L Immature Gran % (Auto) 0.3 Neut % (Auto) 81.1 H Lymph % (Auto) 12.6 L [place] % (Auto) 5.6 Eos % (Auto) 0.1 Baso % (Auto) 0.3 Lymph # (Auto) 1.8 [place] # (Auto) 0.8 Eos # (Auto) 0.0 Baso # (Auto) 0.1 Abs Immat Gran (auto) 0.04 H Absolute Neuts (auto) 11.7 H Absolute Nucleated RBC 0.000 Nucleated RBC % (auto) 0.0 Anion Gap 15 Estim Creat Clear Calc 89.9 Estimated GFR > 60 Random Glucose 107 Lactic Acid 0.8 Calcium 9.3 Total Bilirubin 0.4 Direct Bilirubin 0.2 AST 20 ALT 21 Alkaline Phosphatase 75 Total Protein 7.1 Albumin 4.4 Beta HCG, Quant < 2 Urine Color Yellow Urine Appearance Clear Urine pH 7.5 Ur Specific [place] 1.025 Urine Protein Negative Urine Glucose (UA) Negative Urine Ketones Negative Urine Blood Large (3+) H Urine Nitrite Negative Ur Leukocyte Esterase Negative Urine RBC 11-20 H Urine WBC 0-5 Ur Squamous Epith Cells 0-2 Urine Bacteria None Seen Hyaline Casts 0-2 Urine Test NEGATIVE Influenza Type A (PCR) NEGATIVE Influenza Type B (PCR) NEGATIVE RSV RNA Qual (PCR) NEGATIVE SARS-CoV-2 RNA (RT-PCR) NEGATIVE 08/03/24 04:32 MCV 80.6 MCH 26.9 L MCHC 33.3 RDW 14.9 Plt Count 252 MPV 9.4 Immature Gran % (Auto) 0.3 Neut % (Auto) 80.3 H Lymph % (Auto) 13.2 L [place] % (Auto) 5.7 Eos % (Auto) 0.2 Baso % (Auto) 0.3 Lymph # (Auto) 1.4 [place] # (Auto) 0.6 Eos # (Auto) 0.0 Baso # (Auto) 0.0 Abs Immat Gran (auto) 0.03 Absolute Neuts (auto) 8.4 H Absolute Nucleated RBC 0.000 Nucleated RBC % (auto) 0.0 Anion Gap 12 Estim Creat Clear Calc 105.6 Estimated GFR > 60 Random Glucose 120 H Lactic Acid Calcium 7.8 L D Total Bilirubin Direct Bilirubin AST ALT Alkaline Phosphatase Total Protein Albumin Beta HCG, Quant Urine Color Urine Appearance Urine pH Ur Specific [place] Urine Protein Urine Glucose (UA) Urine Ketones Urine Blood Urine Nitrite Ur Leukocyte Esterase Urine RBC Urine WBC Ur Squamous Epith Cells Urine Bacteria Hyaline Casts Urine Test Influenza Type A (PCR) Influenza Type B (PCR) RSV RNA Qual (PCR) SARS-CoV-2 RNA (RT-PCR) Assessment and Plan (1) Diverticulitis: Status: Acute (2) Fever: Status: Acute Plan 49-year-old female with pertinent history of kidney stones, hypertension, mood disorder, gastroesophageal reflux disease who presents to the emergency department for evaluation of abdominal pain. Sepsis due to acute uncomplicated diverticulitis: Resuscitated with IV crystalloids. Initiating empiric IV Zosyn. Lactic acid and blood culture obtained. NPO for bowel rest. Will need outpatient follow-up colonoscopy Clear liquid diet Hypertension: Resume home antihypertensives once able to take p.o. Mood disorder: Resume home mood stabilizers once no longer NPO DVT prophylaxis: Lovenox Ongoing need for stay: Sepsis due to diverticulitis-does not improve yet, unable to tolerate diet need IV antibiotics and renal function and electrolyte monitoring. Quality Stroke Does the patient have a stroke diagnosis?: No VTE Prior VTE?: No VTE Risk Level:: Medical - moderate - high VTE Device Contraindication: Treatment Not Indicated VTE Drug Contraindication: N/A - Med Ordered
--- NOTE | 2024-08-03 18:00 | PC.NURSE ---
Patient experiencing intermittent nausea. Ate dinner without issue. Patient wanted to wait until after dinner to take ordered BP medications due to recent nausea. Patient resting in bed comfortably with kpad. Reports pain improvement.
[2024-08-03 20:00] VITALS: BP 143/92; PULSE 72; RESP 18; TEMP 36.7; O2SAT 100
[2024-08-04] VITALS: BP 127/68; PULSE 71; RESP 17; TEMP 36.3; O2SAT 97
[2024-08-04] MEDS: Lactated Ringers 1,000 ML 100 ML IVCONT ×3 (01:17→22:56)
[2024-08-04 04:00] VITALS: BP 137/94; PULSE 70; RESP 17; TEMP 36.3; O2SAT 99
[2024-08-04] MEDS: Acetaminophen 1,000 MG/100 ML PIGGYBACK 400 MG IV (04:48)
[2024-08-04] MEDS: Piperacillin Sodium/Tazobactam 4.5 GM in 0.9 % Sodium Chloride 100 ML IV ×4 (05:06→22:49)
[2024-08-04] MEDS: Omeprazole 20 MG CAPSULE.DR PO (05:37)
[2024-08-04 07:40] VITALS: BP 151/79; PULSE 65; RESP 16; TEMP 36.2; O2SAT 98
[2024-08-04] MEDS: dilTIAZem HCL CD 300 MG CAP.ER.24H PO (09:19)
[2024-08-04] MEDS: PARoxetine HCL 10 MG TABLET PO (09:19)
[2024-08-04] MEDS: Metoprolol Succinate ER 50 MG TAB.ER.24H PO (09:19)
--- NOTE | 2024-08-04 09:57 | P.PNIM_ITS ---
Subjective Subjective Date of Service: 08/04/24 Interval History: f/u on acute diverticulitis still c/o pain Physical Exam 2 Vital Signs: Vital Signs: Last Vital Signs Temp 97.1 F 08/04/24 07:40 Pulse 65 08/04/24 07:40 Resp 16 08/04/24 07:40 BP 151/79 H 08/04/24 07:40 Pulse Ox 98 08/04/24 07:40 O2 Del Method Room Air 08/04/24 07:40 BMI result Body Mass Index 34.8 Const: Other: non specific abd tenderness, o/w uremrakable exam Objective Data Active Medications Calcium Carbonate (Calcium Carbonate 750 Mg Tab.Chew) 750 mg PO Q4H PRN PRN Reason: Heartburn Diltiazem HCl (Diltiazem Hcl Cd 300 Mg Cap.Er.24h) 300 mg PO DAILY ON LICENSE OF [facility]; Protocol Last Admin: 08/04/24 09:19 Dose: 300 mg Documented By: JORGE Enoxaparin Sodium (Enoxaparin Sodium 40 Mg/0.4 Ml Syringe) 40 mg SUBCUT Q24H ON LICENSE OF [facility] Last Admin: 08/04/24 09:21 Dose: Not Given Documented By: JORGE Non-Admin Reason: Patient Refused Hydromorphone HCl (Hydromorphone Hcl 1 Mg/Ml Syringe) 0.5 mg IVPUSH Q4H PRN; Protocol PRN Reason: Pain, Severe (Pain Scale 7-10) Last Admin: 08/03/24 09:34 Dose: 0.5 mg Documented By: THALIA Piperacillin Sod/Tazobactam (Sod 4.5 gm/ Sodium Chloride) 100 mls @ 200 mls/hr IV Q6H ON LICENSE OF [facility] Last Infusion: 08/04/24 05:37 Dose: Infused Documented By: GURINDER Lactated Ringer's (Lr) 1,000 mls @ 100 mls/hr IVCONT .Q10H ON LICENSE OF [facility] Last Admin: 08/04/24 01:17 Dose: 100 mls/hr Documented By: GURINDER Acetaminophen (Ofirmev) 1,000 mg in 100 mls @ 400 mls/hr IV Q6H ON LICENSE OF [facility] Last Infusion: 08/04/24 05:04 Dose: Infused Documented By: GURINDER Loratadine (Loratadine 10 Mg Tablet) 10 mg PO BID PRN PRN Reason: allergies Magnesium Hydroxide (Milk Of Magnesia 30 Ml Oral.Susp) 30 ml PO DAILY PRN PRN Reason: Constipation Melatonin (Melatonin 3 Mg Tablet) 6 mg PO BEDTIME PRN PRN Reason: Insomnia Metoprolol Succinate (Metoprolol Succinate Er 50 Mg Tab.Er.24h) 50 mg PO DAILY ON LICENSE OF [facility]; Protocol Last Admin: 08/04/24 09:19 Dose: 50 mg Documented By: JORGE Omeprazole (Omeprazole 20 Mg Capsule.Dr) 20 mg PO DAILY@0630 ON LICENSE OF [facility] Last Admin: 08/04/24 05:37 Dose: 20 mg Documented By: ODRISSylvia Ondansetron HCl (Ondansetron Hcl 4 Mg/2 Ml Vial) 4 mg IVPUSH Q8H PRN PRN Reason: Nausea and Vomiting Last Admin: 08/03/24 16:00 Dose: 4 mg Documented By: VY Paroxetine HCl (Paroxetine Hcl 10 Mg Tablet) 10 mg PO DAILY ON LICENSE OF [facility] Last Admin: 08/04/24 09:19 Dose: 10 mg Documented By: JORGE Sodium Chloride (0.9 % Sodium Chloride Flush 3 Ml Syringe) 3 ml IVFLUSH QSHIFT ON LICENSE OF [facility] Last Admin: 08/04/24 09:17 Dose: Not Given Documented By: JORGE Non-Admin Reason: IV Running Labs 08/03/24 04:32 08/03/24 04:32 Microbiology Microbiology Results: Microbiology 08/02/24 20:55 Blood Culture - Preliminary Blood - Venous No growth after 24 hours. 08/02/24 20:50 Blood Culture - Preliminary Blood - Venous No growth after 24 hours. Assessment and Plan (1) Diverticulitis: Status: Acute (2) Fever: Status: Acute Plan 49-year-old female with pertinent history of kidney stones, hypertension, mood disorder, gastroesophageal reflux disease who presents to the emergency department for evaluation of abdominal pain. Sepsis due to acute uncomplicated diverticulitis, still complaining of signficant pain continue Zosyn, liquid diet and advance as tolerated, GI consult if not improving Hypertension: continue diltiazem and metoprolol Mood disorder Paroxetine DVT prophylaxis: Lovenox Ongoing need for stay: Sepsis due to diverticulitis-does not improve yet, unable to tolerate diet need IV antibiotics and renal function and electrolyte monitoring. Quality Stroke Does the patient have a stroke diagnosis?: No VTE Prior VTE?: No VTE Risk Level:: Medical - moderate - high VTE Device Contraindication: Treatment Not Indicated VTE Drug Contraindication: N/A - Med Ordered
[2024-08-04] MEDS: Acetaminophen 325 MG TABLET 650 MG PO (14:56)
[2024-08-04 15:12] VITALS: BP 150/70; PULSE 68; RESP 18; TEMP 36.1; O2SAT 98
[2024-08-04] MEDS: Butalb/Acetamin/Caff 50/325/40 TABLET 1 TAB PO (19:47)
[2024-08-04 20:00] VITALS: BP 177/94; PULSE 65; RESP 17; TEMP 36.5; O2SAT 100
[2024-08-05] VITALS: BP 131/77; PULSE 62; RESP 17; TEMP 36.4; O2SAT 99
--- NOTE | 2024-08-05 00:07 | PC.NURSE ---
08/04/241939 pt c/o a pounding headache 11/27.No relief from tylenol given earlier. notified.Fioricet 1 tab po x1 ordered with good effect pain down to 04/27.
[2024-08-05 03:01] VITALS: BP 136/76; PULSE 60; RESP 17; TEMP 36.2; O2SAT 98
[2024-08-05] MEDS: Piperacillin Sodium/Tazobactam 4.5 GM in 0.9 % Sodium Chloride 100 ML IV ×2 (05:30→10:21)
[2024-08-05] MEDS: Omeprazole 20 MG CAPSULE.DR PO (05:30)
[2024-08-05] MEDS: Acetaminophen 325 MG TABLET 650 MG PO (05:40)
[2024-08-05 07:52] VITALS: BP 164/93; PULSE 61; RESP 16; TEMP 36; O2SAT 98
[2024-08-05] MEDS: Metoprolol Succinate ER 50 MG TAB.ER.24H PO (08:43)
[2024-08-05] MEDS: dilTIAZem HCL CD 300 MG CAP.ER.24H PO (08:43)
[2024-08-05] MEDS: PARoxetine HCL 10 MG TABLET PO (08:44)
[2024-08-05] MEDS: 0.9 % Sodium Chloride Flush 3 ML SYRINGE IVFLUSH (08:44)
[2024-08-05] MEDS: Loratadine 10 MG TABLET PO (08:44)
--- NOTE | 2024-08-05 09:55 | PM.DS ---
DS: Providers Provider Date of Service: 08/05/24 Date of admission: 08/02/24 23:03 Date of discharge: 08/05/24 Primary care physician: Alex Sheriff MD DS: Diagnosis Discharge Diagnosis (1) Diverticulitis: Status: Acute (2) Fever: Status: Acute DS: Summary Hospital Course Hospital Course: Chief Complaint: Abdominal pain This has a 49-year-old female with pertinent history of kidney stones, hypertension, mood disorder, gastroesophageal reflux disease who presents to the emergency department for evaluation of abdominal pain. Patient states her symptoms started 1 day prior to presentation. She has been having generalized abdominal discomfort which is constant, not relieving, nonradiating and without any relieving factors. No history of similar pains in the past. Also had fever T-max 102 degrees F at home with chills. Patient complaining of associated nausea, vomiting and loose stools. No sick contacts. No chest pain, palpitations, shortness of breath, changes in urinary habits. In the emergency department, patient was found to be septic and imaging concerning for acute diverticulitis. Hospital course: The Patient presented with abdominal pain and fever; workup revealed acute diverticulitis involving the ascending colon. Initial WBC was 14. Patient was admitted for IV antibiotics with Zosyn, IV fluid antiemetics and pain medication and over the course of hospitalization her pain has improved, fever resolved and WBC normalized. Her diet has been advanced to regular diet which she is tolerating. She will be transitioned to oral Augmentin for 7 days. She is to follow up with her primary care doctor and for arrangement to be made for her to see a environmental services coordinator on outpatient basis Time Attestation Discharge Coordination Time (in mins): 40 Quality: Safe Use of Opioids Does Pt have an Active Cancer Diagnosis on the Problem List?: No Quality: Stroke Does the patient have a stroke diagnosis?: No Physical Exam Vital Signs: Vital Signs: Last Vital Signs Temp 96.8 F 08/05/24 07:52 Pulse 61 08/05/24 07:52 Resp 16 08/05/24 07:52 BP 164/93 H 08/05/24 07:52 Pulse Ox 98 08/05/24 07:52 O2 Del Method Room Air 08/05/24 07:52 BMI result Body Mass Index 34.8 Const: Other: General: AO X 3, no acute distress Resp: CTA bilateral CVS: S1,S2,RRR GI: +BS, NT, no distention Skin: No rash Neuro: motor grossly intact Psych: appropriate affect DS: Data Data Completed and Pending Completed studies during hospitalization [Text1]: Procedures Dilation of Left Ureter with Intraluminal Device, Via Natural or Artificial Opening Endoscopic (12/15/23) Dilation of Right Ureter with Intraluminal Device, Via Natural or Artificial Opening Endoscopic (07/16/22) Excision of Bladder, Via Natural or Artificial Opening Endoscopic, Diagnostic (07/16/22) Extirpation of Matter from Left Ureter, Via Natural or Artificial Opening Endoscopic (12/15/23) Fluoroscopy of Left Kidney, Ureter and Bladder (12/15/23) Fluoroscopy of Right Kidney, Ureter and Bladder using Low Osmolar Contrast (07/16/22) Labs on day of discharge: Preliminary micro results at discharge 08/02/24 20:55 Blood Culture - Preliminary Blood - Venous No growth after 48 hours. 08/02/24 20:50 Blood Culture - Preliminary Blood - Venous No growth after 48 hours. Discharge Plan Discharge Anticipated Discharge Date/Time: 08/05/24 09:53 Patient Disposition: Home, Self-Care Discharge Diagnosis: Acute diverticulitis Referrals: Alex Sheriff MD [Primary Care Provider, Medical] - 1 Week Discharge Medications: New amoxicillin-pot clavulanate 875-125 mg tablet 1 tab PO BID Qty: 5 0RF Continued metoprolol succinate 100 mg tablet extended release 24 hr 50 mg PO DAILY paroxetine HCl 10 mg tablet 10 mg PO DAILY omeprazole 20 mg Capsule,Delayed Release(Dr/Ec) 20 mg PO DAILY@0630 lisinopril 40 mg Tablet 40 mg PO DAILY diltiazem HCl 300 mg Capsule,Extended Release 24hr 300 mg PO DAILY cetirizine 10 mg tablet 10 mg PO QD-BID PRN (Reason: allergies) Diet: Advance to usual diet Activity on Discharge: As tolerated Stand Alone Forms: Patient Portal Discharge page Print Language: Wallisian Care Plan Goals: Recovery from acute diverticulitis Health Concerns: Acute diverticulitis Plan of Treatment: Take Augmentin and Flagyl as recommended Follow-up with your primary care doctor within a week, so primary care physician to make a referral for you to see a environmental services coordinator and possibly to be arranged for colonoscopy Assessment: See above
--- NOTE | 2024-08-05 10:26 | MHC.CM.PN ---
Patient medically cleared for dc home self care via private transport.
== END 2024-08-05 11:24 | disposition home or self-care (01) | DRG 872 ==
LOC: HO.ED 23:10 → HO.EDOVER 23:22 → HO.S3 08-03 13:09
PROVIDERS: Nurse Practitioner Family; Physician Assistant Medical; Admitting Provider Student in an Organized Health Care Education/Training Program; Emergency Provider Internal Medicine; PCP Internal Medicine; Visit Provider Internal Medicine
DX: A41.9 Sepsis, unspecified organism (principal); K57.32 Diverticulitis of large intestine without perforation or abscess without bleeding; I10 Essential (primary) hypertension; F39 Unspecified mood [affective] disorder; Z20.822 Contact with and (suspected) exposure to COVID-19; Z79.899 Other long term (current) drug therapy
CPT/HCPCS: 0241U; 36415; 74177; 80048; 80076; 81001; 81025; 83605; 84702; 85025; 87040; 99285; J0131; J0696; J1171; J1836; J2405; J2543; J7120; Q9967

== ENCOUNTER → 2024-08-02 20:01 | Outpatient (BNV) | payer OTHER, SELFPAY | PROVIDERS: Emergency Provider Internal Medicine; PCP Internal Medicine; Visit Provider Student in an Organized Health Care Education/Training Program | DX: K57.92 Diverticulitis of intestine, part unspecified, without perforation or abscess without bleeding (principal) | CPT/HCPCS: 99222 ==

== ENCOUNTER → 2024-08-02 20:36 | Outpatient (BNV) | payer OTHER, SELFPAY | PROVIDERS: Emergency Provider Internal Medicine; PCP Internal Medicine; Visit Provider Student in an Organized Health Care Education/Training Program | DX: K57.30 Diverticulosis of large intestine without perforation or abscess without bleeding (principal) | CPT/HCPCS: 74177 ==

== ENCOUNTER 2024-08-10 14:11 | Outpatient (REF) | payer OTHER, SELFPAY ==
[2024-08-10 14:31] LABS: Hematocrit 33.2 % (37.0-47.0); Hemoglobin 11.1 g/dl (12.0-16.0); Mean Corpuscular HGB Conc 33.4 g/dl (31.0-35.0); Mean Corpuscular Hemoglobin 27.3 pg (27.0-33.0); Mean Corpuscular Volume 81.6 fL (80.0-98.0); Mean Platelet Volume 9.1 fL (9.4-12.3); Platelet Count 307 X10*3/uL (160-400); Red Blood Count 4.07 X10*6/uL (4.20-5.50); White Blood Count 8.8 X10*3/uL (4.8-10.8)
--- OUTSIDE RECORDS SUMMARY | 2024-08-10 15:45 | XMS_ITS | Clinical Summary ---
Author Organization [facility] Facility Address [address] [place] [address] Care Team Providers Care Retail Reset Merchandiser Name Role Phone Alex Sheriff MD Primary Care Provider [phone] Allergies Active Allergy Reactions Criticality Noted Date Comments Morphine And Codeine 04/14/2020 Medications lisinopril (PRINIVIL,ZESTR IL) 40 MG tabletIndicatio ns:Hypertension Take 1 tablet by mouth 1 (one) time each day Active dilTIAZem (TIAZAC) 300 MG 24 hr capsuleIndicati ons:Hypertensio n Take 300 mg by mouth 1 (one) time each day Active butalbital-acet aminophen-caffe ine-codeine (FIORICET WITH CODEINE) [phone] MG per capsuleIndicati ons:Hypertensio n Take 1 [...] age to complete this topic Insurance [address] [place] [id number] [facility] ([id number]) DONNA EGAN [id number] [facility] ([id number]) DONNA EGAN [id number] Care Teams Retail Reset Merchandiser Relationship Specialty Start Date End Date Alex Sheriff MD PCP - General 02/29/20
== END 2024-08-10 14:12 | disposition home or self-care (01) ==
LOC: HO.LAB 14:11
PROVIDERS: PCP Internal Medicine; Visit Provider Obstetrics & Gynecology
DX: N93.9 Abnormal uterine and vaginal bleeding, unspecified (principal)
CPT/HCPCS: 36415; 85027

== ENCOUNTER 2024-08-11 14:52 | Outpatient (AMB) | payer OTHER, SELFPAY ==
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
[2024-08-11 15:04] VITALS: BP 122/82; BMI 35.3
--- OUTSIDE RECORDS SUMMARY | 2024-08-11 18:05 | XMS_ITS | Encounter Summary ---
Author Organization [employer] Address [address] [place] [address] Care Team Providers Care Supervisor Net Making Name Role Phone Alex Sheriff MD Primary Care Provider [phone] Encounter Details Date Type Department Care Team ([facility] st Contact Info) Description 09/20/2023 Orders Only [facility] [address], [place] [phone] Alex Sheriff MD [address] [place] [address] Social History Tobacco Use Types Packs/Day Years [...] Care Team (Late st Contact Info) Description 08/17/2024 10:15 AM EDT Office Visit [facility] [address] [place] [address] Alex Sheriff MD [address] [place] [address] 09/24/2024 9:00 AM EDT Office Visit [facility] [address] [place] [address] Alex Sheriff MD [address] [place] [address] documented as of this encounter Visit Diagnoses Not on filedocumented in this encounter Care Teams Supervisor Net Making Relationship Specialty Start Date End Date Alex Sheriff MD [address] [place] [address] PCP - General Internal Medicine 02/25/13 documented as of this encounter
== END 2024-08-11 15:53 | disposition home or self-care (01) ==
LOC: HO.HWS 14:52
PROVIDERS: PCP Internal Medicine; Visit Provider Obstetrics & Gynecology
DX: N93.9 Abnormal uterine and vaginal bleeding, unspecified (principal); N83.299 Other ovarian cyst, unspecified side; Z32.02 Encounter for pregnancy test, result negative
CPT/HCPCS: 99213

== ENCOUNTER 2024-08-11 14:52 | Outpatient (REF) | payer OTHER, SELFPAY ==
[2024-08-13 09:54] LABS: CA-125 18 U/mL (<35)
== END 2024-08-11 14:53 | disposition home or self-care (01) ==
LOC: HO.LAB 14:52
PROVIDERS: PCP Internal Medicine; Visit Provider Obstetrics & Gynecology
DX: N93.9 Abnormal uterine and vaginal bleeding, unspecified (principal); N83.299 Other ovarian cyst, unspecified side
CPT/HCPCS: 36415; 81025; 84443; 86304; 99212

== ENCOUNTER → 2024-08-14 11:10 | Outpatient (BNV) | payer OTHER, SELFPAY | PROVIDERS: PCP Internal Medicine; Visit Provider Obstetrics & Gynecology | DX: N93.9 Abnormal uterine and vaginal bleeding, unspecified (principal); N84.0 Polyp of corpus uteri | CPT/HCPCS: 58558; 99499 ==

== ENCOUNTER → 2024-08-14 11:10 | Day surgery (SDC) | payer OTHER, SELFPAY ==
--- OUTSIDE RECORDS SUMMARY | 2024-08-12 12:51 | XMS_ITS | Encounter Summary ---
Author Organization [employer] Address [address] [facility] [address] [facility] [address] [place] [address] Care Team Providers Care Breadman Name Role Phone Alex Sheriff MD Primary Care Provider [phone] Encounter Details Date Type Department Care Team ([facility] st Contact Info) Description 09/20/2023 Orders Only [facility] [address] [place], [place] [id number] Alex Sheriff MD [address] [place] [address] Social History Tobacco Use Types Packs/Day Years [...] Description 08/17/2024 10:15 AM EDT Office Visit [facility] [address] [place] [address] Alex Sheriff MD [address] [place] [address] 09/24/2024 9:00 AM EDT Office Visit [facility] [address] [place] [address] Alex Sheriff MD [address] [place] [address] documented as of this encounter Visit Diagnoses Not on filedocumented in this encounter Care Teams Breadman Relationship Specialty Start Date End Date Alex Sheriff MD [address] [place] [address] PCP - General Internal Medicine 02/25/13 documented as of this encounter
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
[2024-08-14 11:51] VITALS: BP 122/81; PULSE 74; RESP 16; TEMP 36.4; O2SAT 99; BMI 35.1
[2024-08-14] MEDS: Lactated Ringers 1,000 ML 100 ML IVCONT (11:53)
--- NOTE | 2024-08-14 12:02 | MHC.SHP ---
Pre-Procedural Eval Section A - 24 Hr Update-Section A only Date of Service: 08/14/24 The patient is an INPATIENT: No Changes since office visit: No Cold of Flu in the past 2 weeks, No New Medical Problems, No Changes in Medication and No Patient answered all questions The patient has been examined within 24 hours of the surgical procedure. The History & Physical has been completed within 30 days and I have reviewed it.: Yes Section B - Complete if H&P > 30 days Chief Complaint: Abnormal uterine and vaginal bleeding, unspecified Allergies: Allergies Allergy/AdvReac Type Severity Reaction Status Date / Time morphine (MORPHINE) Allergy Intermediate PAPLITATIONS, Verified 08/11/24 15:05 increased heart rate Plan Diagnosis/Plan: Unchanged I have reviewed the history and physical and performed a pertinent physical examination on my patient. No changes have occurred unless specified. Time Spent With Patient Time: Total time managing care of this patient today ____ minutes.
[2024-08-14 12:10] LABS: UPreg QC Valid YES
[2024-08-14 12:12] LABS: Urine Pregnancy NEGATIVE (NEGATIVE)
--- NOTE | 2024-08-14 12:44 | P.OP_ITS ---
Operative Note Operative Note Date of Service: 08/14/24 Narrative: Preop Diagnosis: AUB, abnormal endometrium by ultrasound Operation: Diagnostic Hysteroscopy, Dilataion & Curettage and polypectomy Post Op Diagnosis: Endometrial Polyp QBL: Minimal Anesthesia: GLMA Surgeon: Chandler Uribe MD Sap Crm Developer: None Complication: None Pathology: Endometrial Scrapings, Endometrial polyp Procedure: The patient was put in the dorsal lithotomy position, scrubbed, and draped in the usual manner. A sterile speculum was inserted in the patient's vagina. The anterior lip of the cervix was grasped with a single tooth tenaculum. The cervix was dilated up to 5 mm, then the scope was inserted in the patient's uterus. Inspection revealed endometrial polyp. The Myosure Reach device was used; it was introduced through the operative channel and polypectomy done with no complications. The scope was then taken out from the uterine cavity, sharp curettings was carried on with minimal to moderate amount of tissues retrieved. At the end of the procedure, all instruments were taken out of the patient uterine and vaginal cavity. The single tooth tenaculum was removed and homeostasis was assured using pressure,. The patient tolerated the procedure well and was transferred to the PACU in a stable condition.
--- NOTE | 2024-08-14 12:44 | P.BOP_ITS ---
Brief Operative Note Date of Service: 08/14/24 Pre-op diagnosis: AUB, abnormal endometrium by ultrasound Post-op diagnosis: same (Endometrial polyp) Procedure: Hysteroscopy D&C, Polypectomy Surgeon: Chandler Uribe MD Anesthesia: GLMA Was an Return Agent used for this Procedure?: No Estimated blood loss (mL): 0 Pathology: other (Endometrial Scrapping. Polyp) Condition: stable Disposition: PACU
[2024-08-14 12:54] VITALS: BP 128/84; PULSE 98; RESP 16; TEMP 36.1; O2SAT 96
[2024-08-14 12:59] VITALS: BP 135/83; PULSE 125; RESP 16; O2SAT 98
[2024-08-14] MEDS: Midazolam HCl 2 MG/2 ML VIAL IVPUSH (13:02)
[2024-08-14 13:04] VITALS: BP 145/77; PULSE 92; RESP 18; O2SAT 98
[2024-08-14 13:09] VITALS: BP 130/75; PULSE 89; RESP 22; TEMP 36.1; O2SAT 98
--- NOTE | 2024-08-14 13:14 | PM.EVENT ---
Event Note Date of Service: 08/14/24 Event Note: The patient developed 2 tonic-clonic seizures in the PACU. No complaints of pelvic pain Minimal hysteroscopic deficit and short procedure The patient has history of seizure disorder years ago has been of anti epileptic drugs for few years Physical exam: Stable vital signs Abdominal exam nontender no rebound A: Seizure postop with a history of procedure disorder in the past off medication P: Will transfer to ED for further evaluation Time Spent With Patient Time: Total time managing care of this patient today ____ minutes.
[2024-08-14 13:22] VITALS: BP 128/81; PULSE 86; RESP 16; TEMP 36.2; O2SAT 99
== END | disposition home or self-care (01) ==
PROVIDERS: PCP Internal Medicine; Visit Provider Obstetrics & Gynecology
PROC: 0UDB8ZZ Extraction of Endometrium, Via Natural or Artificial Opening Endoscopic (ICD-10-PCS; CPT 58558; principal; 2024-08-14 13:20)
DX: N93.9 Abnormal uterine and vaginal bleeding, unspecified (principal); N84.0 Polyp of corpus uteri; N83.299 Other ovarian cyst, unspecified side; G97.82 Other postprocedural complications and disorders of nervous system; Z56.0 Unemployment, unspecified; Y84.8 Other medical procedures as the cause of abnormal reaction of the patient, or of later complication, without mention of misadventure at the time of the procedure; Y76.0 Diagnostic and monitoring obstetric and gynecological devices associated with adverse incidents; Y92.238 Other place in hospital as the place of occurrence of the external cause; I10 Essential (primary) hypertension; I47.10 Supraventricular tachycardia, unspecified; J45.909 Unspecified asthma, uncomplicated; N13.30 Unspecified hydronephrosis; Z87.442 Personal history of urinary calculi; Z88.5 Allergy status to narcotic agent; Z98.51 Tubal ligation status; Z87.891 Personal history of nicotine dependence; G40.89 Other seizures
CPT/HCPCS: 58558; 81025; 88305; J1100; J1885; J2003; J2250; J2405; J2704; J3010

== ENCOUNTER 2024-08-14 13:36 | Emergency (ER) | payer OTHER, SELFPAY ==
--- NOTE | ~2024-08-14 | CT_ITS ---
EXAMINATION: CT HEAD WITHOUT CONTRAST CLINICAL INFORMATION: Seizure, with no history of seizures. COMPARISON: 04/07/2021. TECHNIQUE: Contiguous axial imaging was performed from the skull base to vertex without intravenous administration of contrast. This CT examination was performed using dose optimization techniques as appropriate, variously including the following: *Automated exposure control *Adjustment of mA and/or kV according to patient size (this includes techniques or standardized protocols for targeted exams where dose is matched to indication/reason for exam; i.e. extremities or head) *Use of iterative reconstruction technique FINDINGS: There is no evidence of intracranial hemorrhage or extra-axial fluid collection. There is no mass effect, or edema. No CT evidence of acute territorial infarct. Ventricles, sulci, and cisterns are normal in size and configuration for patient age. No hydrocephalus. No midline shift. Negative hyperdense MCA sign. Negative insular ribbon sign. Similar prominent Virchow-Sage space right subinsular region. No significant white matter abnormalities. Normal pituitary. Globes and orbital contents image normally. No extracranial soft tissue abnormalities. The paranasal sinuses, mastoid air cells, and tympanic cavities are normally aerated. No suspicious bony abnormalities. There are no acute fractures evident. CT/CT head/brain wo IV con IMPRESSION: No acute intracranial abnormality. Electronically signed by: Van Goldberg MD 08/14/2024 04:07 PM EDT
[2024-08-14 13:42] VITALS: BP 137/85; PULSE 81; RESP 25; TEMP 36.4; O2SAT 98; BMI 33.1
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
[2024-08-14 13:52] VITALS: BP 141/93; PULSE 81; RESP 14; O2SAT 97
--- NOTE | 2024-08-14 13:52 | ECG_ITS ---
Test Reason : seizure Blood Pressure : */* mmHG Vent. Rate : 85 BPM Atrial Rate : 85 BPM P-R Int : 150 ms QRS Dur : 80 ms QT Int : 378 ms P-R-T Axes : 33 14 18 degrees QTcB Int : 449 ms Normal sinus rhythm Normal ECG When compared with ECG of 08-Dec-2020 22:16, No significant change was found Referred By: Risa Reese Electronically Signed By: RON ESPOSITO
--- NOTE | 2024-08-14 13:52 | PC.NURSE ---
Pt arrives to ED from PACU s/p hysterectomy. Per KIRA Sepulveda, while in PACU, Pt has tonic-clonic seizure x2 in PACU--Versed administered. On arrival, Pt is postictal with VSS. Paper chart from PACU arrives with Pt and placed in hard chart. D/C paperwork fro procedure left at bedside. Dr. Uribe at bedside for eval. Pts belongings arrive with her and are at bedside. KIRA Sepulveda to reach out to Pts responsible driver trainee. Care of Pt relinquished to KIRA Berg.
--- NOTE | 2024-08-14 13:55 | PC.NURSE ---
pt presents to the ED from PACU s/p 2 witnessed tonic-clonic seizures in PACU s/p hysterectomy w/ polyp removal. 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 pt arrives in post-ictal state. unable to answer questions/follow commands appropriately. pt seemingly weak/lethargic. vss and up to date. nsr on the court recording monitor. pt is currently on RA w/o difficulty. maintaining airway/managing secretions w/o difficulty. no sob/wob noted. respirations even/unlabored. 20gIV in the left wrist upon arrival - patent/intact. ekg obtained by [facility] [employer] bedside obtaining labs. pending head CT. seizure pads/suction/ambu bag in place fore safety precautions. plan of care ongoing. call quintana placed within reach.
[2024-08-14 14:09] LABS: MANUAL DIFF FLAG NO
[2024-08-14 14:14] LABS: Basophils Absolute Auto 0.1 X10*3/uL (0.0-0.2); Basophils Percent Auto 0.5 % (0-2); Eosinophils Percent Auto 0.2 % (0-4); Hematocrit 33.9 % (37.0-47.0); Hemoglobin 11.2 g/dl (12.0-16.0); Imm Gran Abs Auto 0.03 X10*3/uL (0.00-0.03); Imm Gran Pct Auto 0.3 % (0.0-0.4); Lymphocytes Absolute Auto 1.7 X10*3/uL (1.2-4.9); Lymphocytes Percent Auto 17.6 % (20-40); Mean Corpuscular Hemoglobin 27.1 pg (27.0-33.0); Mean Corpuscular Volume 82.1 fL (80.0-98.0); Mean Platelet Volume 9.5 fL (9.4-12.3); Monocytes Absolute Auto 0.3 X10*3/uL (0.1-1.2); Monocytes Percent Auto 2.5 % (2-11); Neutrophils Absolute Auto 7.8 x10*3/uL (2.0-8.3); Neutrophils Percent Auto 78.9 % (45-73); Platelet Count 302 X10*3/uL (160-400); Red Blood Count 4.13 X10*6/uL (4.20-5.50); Red Cell Distribution Width 15.3 % (11.0-16.0); White Blood Count 9.9 X10*3/uL (4.8-10.8)
--- NOTE | 2024-08-14 14:14 | PC.NURSE ---
dr. lee called pt's for a status update s/p procedure. now bedside for support. plan of care ongoing.
[2024-08-14 14:25] LABS: Alanine Aminotransferase 24 U/L (0-31); Albumin Level 4.4 g/dL (3.5-5.0); Alkaline Phosphatase 72 U/L (39-117); Anion Gap 11 (12-20); Aspartate Amino Transferase 19 U/L (5-31); Bilirubin Total 0.3 mg/dL (0.0-1.0); Blood Urea Nitrogen 8 mg/dL (9-16); Carbon Dioxide 22 mmol/L (22-29); Chloride 109 mmol/L (96-108); Creatinine Clr Calc Pharmacy 104.5; Estimated Glomerular Filt Rate > 60; Ethanol < 10 mg/dL; Glucose Random 110 mg/dL (60-115); Lactic Acid 1.4 mmol/L (0.5-2.0); Magnesium 1.9 mg/dL (1.6-2.6); Potassium 4.2 mmol/L (3.3-5.1); Sodium 138 mmol/L (135-145)
--- OUTSIDE RECORDS SUMMARY | 2024-08-14 14:31 | XMS_ITS | Encounter Summary ---
Author Organization [employer] Address [address] [place] [address] Care Team Providers Care Engine Cleaner Name Role Phone Alex Sheriff MD Primary Care Provider [phone] Encounter Details Date Type Department Care Team ([facility] st Contact Info) Description 09/20/2023 Orders Only [facility]S [address] [place], [place] [id number] Alex Sheriff MD [address] [place] [address] Social History Tobacco Use Types Packs/Day Years [...] Description 08/17/2024 10:15 AM EDT Office Visit [facility] MED & PEDS [address] [place] [address] Alex Sheriff MD [address] [place] [address] 09/24/2024 9:00 AM EDT Office Visit [facility] MED & PEDS [address] [place] [address] Alex Sheriff MD [address] [place] [address] documented as of this encounter Visit Diagnoses Not on filedocumented in this encounter Care Teams Engine Cleaner Relationship Specialty Start Date End Date Alex Sheriff MD [address] [place] [address] PCP - General Internal Medicine 02/25/13 documented as of this encounter
[2024-08-14 14:46] LABS: Influenza A PCR NEGATIVE (Negative); Influenza B PCR NEGATIVE (Negative); Resp Syncy Virus RNA Qual PCR NEGATIVE (Negative); SARS COV2 PCR INHOUSE NEGATIVE (Negative)
[2024-08-14 15:00] VITALS: BP 127/81; PULSE 63; RESP 15; O2SAT 99
--- NOTE | 2024-08-14 15:02 | PC.NURSE ---
pt more awake/alert/oriented at this time. able to answer questions/follow commands appropriately. pt verbalizing she is unable to urinate while utilizing bed siegel - requesting to ambulate to the restroom. 2:1 assist needed to get OOB and while ambulating. pt urinated a large amount of pink tinged, cloudy, non-foul smelling urine w/ a small amount of dark red clots. specimen obtained/sent to lab. 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 nsr. vss and up to date. pt remains on RA w/o difficulty. no sob/wob noted. respirations even/unlabored. seizure pads remain in place. pending CT to be completed at this time. bedside for support. plan of care ongoing. call quintana placed within reach.
[2024-08-14 15:08] LABS: Appearance Urine Clear; Color Urine Yellow; Glucose Urine UA Negative (Negative); Leukocyte Esterase Urine Negative (Negative); Nitrite Urine Negative (Negative); Specific Gravity - Urine <= 1.005 (1.005-1.025); UMIC TRIGGER UACC YES; Urine Blood Large (3+) (Negative); Urine Ketones Negative (Negative); Urine Protein Negative (Neg-Trace)
[2024-08-14 15:12] LABS: Glucose, Whole Blood 115 mg/dL (60-115)
[2024-08-14 15:13] LABS: Bacteria Urine None Seen (None Seen); Hyaline Casts Urine 0-2 /LPF (0-2); RBC Urine >20 /HPF (0-2); Squamous Epithelial Cell Urine 0-2 /HPF (0-2); WBC Urine 0-5 /HPF (0-5)
[2024-08-14 15:19] LABS: Amphetamine Screen Urine Not Detected (Not Detect); Barbiturates, Urine Not Detected (Not Detect); Benzodiazepines Screen Urine POSITIVE (Not Detect); Buprenorphine Scr Not Detected (Not Detect); Cannabinoid Screen Urine Not Detected (Not Detect); Cocaine Screen Urine Not Detected (Not Detect); Fentanyl, urine POSITIVE (Not Detect); Methadone Screen, Urine Not Detected (Not Detect); Opiate Screen Urine Not Detected (Not Detect); Oxycodone Screen Urine Not Detected (Not Detect); Phencyclidine Screen Urine Not Detected (Not Detect)
[2024-08-14 16:00] VITALS: BP 117/69; PULSE 66; RESP 12; TEMP 36.6; O2SAT 98
[2024-08-14] MEDS: Acetaminophen 1,000 MG/100 ML PIGGYBACK 400 MG IV (16:40)
[2024-08-14 17:08] VITALS: BP 117/69; PULSE 66; RESP 12; TEMP 36.6; O2SAT 98
== END 2024-08-14 17:08 | disposition home or self-care (01) ==
PROVIDERS: Registered Nurse Emergency; Emergency Provider Emergency Medicine; PCP Internal Medicine
DX: R56.9 Unspecified convulsions (principal); Z98.890 Other specified postprocedural states; Z03.818 Encounter for observation for suspected exposure to other biological agents ruled out; I10 Essential (primary) hypertension; J45.909 Unspecified asthma, uncomplicated; Z87.891 Personal history of nicotine dependence; Z79.899 Other long term (current) drug therapy
CPT/HCPCS: 0241U; 36415; 70450; 80053; 80307; 81001; 82947; 83605; 83735; 85025; 93005; 96365; 99284; 99285; J0131

== ENCOUNTER → 2024-08-14 13:52 | Outpatient (BNV) | payer OTHER, SELFPAY | PROVIDERS: Emergency Provider Emergency Medicine; PCP Internal Medicine; Visit Provider Radiology Diagnostic Radiology | DX: R56.9 Unspecified convulsions (principal) | CPT/HCPCS: 70450 ==

== ENCOUNTER → 2024-08-14 13:52 | Outpatient (BNV) | payer OTHER, SELFPAY | PROVIDERS: Emergency Provider Emergency Medicine; PCP Internal Medicine; Visit Provider Internal Medicine | DX: G40.409 Other generalized epilepsy and epileptic syndromes, not intractable, without status epilepticus (principal) | CPT/HCPCS: 93010 ==

== ENCOUNTER 2024-08-20 13:09 | Outpatient (AMB) | payer OTHER, SELFPAY ==
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
[2024-08-20 13:13] VITALS: BMI 34.7
--- OUTSIDE RECORDS SUMMARY | 2024-08-20 13:14 | XMS_ITS | Encounter Summary ---
Author Organization [employer] Address [address] [facility] [address] [place] [address] Care Team Providers Care Recreation Therapy Teacher Name Role Phone Alex Sheriff MD Primary Care Provider [phone] Encounter Details Date Type Department Care Team ([facility] st Contact Info) Description 09/20/2023 Orders Only [facility] MED & PEDS [address] [place], [place] [id number] Alex Sheriff MD [address] [place] [address] Social History Tobacco Use Types Packs/Day Years [...] Care Team (Late st Contact Info) Description 11/17/2024 11:30 AM EDT Office Visit [facility] MED [facility]EDS [address] [place] [address] Alex Sheriff MD [address] [place] [address] documented as of this encounter Visit Diagnoses Not on filedocumented in this encounter Care Teams Recreation Therapy Teacher Relationship Specialty Start Date End Date Alex Sheriff MD [address] [place] [address] PCP - General Internal Medicine 02/25/13 documented as of this encounter
--- OUTSIDE RECORDS SUMMARY | 2024-08-20 13:14 | XMS_ITS | Clinical Summary ---
Author Organization [address] [place] [address] Address [address] [place] [address] Phone Care Team Providers Care Rouge Presser Name Role Phone Alex Sheriff MD Primary Care Provider [phone] Surgical History Surgery Date Site/Laterality Comments TUBAL LIGATION PROCEDURE: HISTORICAL TUBAL LIGATION Medical History Medical History Date Comments HTN (hypertension) 03/14/2022 DX:HTN (hyper tension) Paroxysmal supraventricular tachycardia ([facility]/HCC V24) 03/14/2022 DX:Paroxysmal supraventricul ar tachycardia (HCC) [...] 03/14/2022 3:05 PM EST Plan of Treatment Upcoming Encounters Date Type Department Care Team (Late st Contact Info) Description 10/06/2024 9:15 AM EDT Consult Orthopedic Surgery - [place] [address] [id number] Kobi Saavedra, DPM [address] [address] Health Maintenance Due Date Last Done Comments Breast Cancer Screening 1976 Hepatitis B Vaccines (1 of 3 - 19+ 3-dose series) 05/10/1995 Cervical Cancer Screening: P ap Smear 1997 Cholesterol Screening (Lipid Panel) 03/19/2023 Colorectal Cancer Screening: Colonoscopy 03/19/2023 Depression Screening 03/19/2023 HIV Screening 03/19/2023 Hepatitis C Screening 03/19/2023 Medicare Annual Wellness Visit 03/19/2023 Social Influencers of Health Screening 03/19/2023 Hypertension/CHF/CAD Annual BMP Blood Test 04/03/2023 COVID-19 Vaccine (1 - 2023-2 5 season) 2023 Influenza Vaccine (#1) 2024 DTaP,Tdap,and Td Vaccines (2 - Td [...] patient's age to complete this topic Insurance [facility] [facility] [facility] MEDICARE Member Subscriber Plan / Payer (Ef fective 2013-Present) Name:TRACY SANTIAGO Relation to Subscriber:Self Name:Tracy Santiago Payer ID:[id number] Group ID:[id number] Type:Not on file Address: [place] [address] [place] [id number] Care Teams Rouge Presser Relationship Specialty Start Date End Date Alex Sheriff MD [address] [place] [address] PCP - General 03/14/22
--- OUTSIDE RECORDS SUMMARY | 2024-08-20 13:14 | XMS_ITS | Clinical Summary ---
Author Organization [facility] Facility Address [address] [place] [address] Care Team Providers Care Summer Sessions Director Name Role Phone Alex Sheriff MD Primary Care Provider [phone] Allergies Active Allergy Reactions Criticality Noted Date Comments Morphine And Codeine 04/14/2020 Medications lisinopril (PRINIVIL,ZESTR IL) 40 MG tabletIndicatio ns:Hypertension Take 1 tablet by mouth 1 (one) time each day Active dilTIAZem (TIAZAC) 300 MG 24 hr capsuleIndicati ons:Hypertensio n Take 300 mg by mouth 1 (one) time each day Active butalbital-acet aminophen-caffe ine-codeine (FIORICET WITH CODEINE) 01-895-93-30 MG per capsuleIndicati ons:Hypertensio n Take 1 [...] age to complete this topic Insurance [address] [place] [id number] [facility] ([id number]) [place] [id number] [facility] ([id number]) [place] [id number] Care Teams Summer Sessions Director Relationship Specialty Start Date End Date Alex Sheriff MD PCP - General 02/29/20
== END 2024-08-20 13:24 | disposition home or self-care (01) ==
LOC: HO.HWS 13:09
PROVIDERS: PCP Internal Medicine; Visit Provider Obstetrics & Gynecology
DX: N93.9 Abnormal uterine and vaginal bleeding, unspecified (principal); N83.299 Other ovarian cyst, unspecified side
CPT/HCPCS: 99213

== ENCOUNTER → 2024-08-20 13:09 | Outpatient (BNVA) | payer OTHER, SELFPAY | PROVIDERS: PCP Internal Medicine; Visit Provider Obstetrics & Gynecology | DX: Z71.2 Person consulting for explanation of examination or test findings (principal); N93.9 Abnormal uterine and vaginal bleeding, unspecified; N83.292 Other ovarian cyst, left side | CPT/HCPCS: 99212 ==

== ENCOUNTER 2024-10-29 11:39 | Outpatient (REF) | payer OTHER, SELFPAY ==
--- OUTSIDE RECORDS SUMMARY | 2024-10-29 16:00 | XMS_ITS | Clinical Summary ---
Author Organization [address] [facility] Address [address] [place] [address] Phone Care Team Providers Care Manager Validation Name Role Phone Alex Sheriff MD Primary Care Provider [phone] Medications diclofenac (Voltaren Arthritis Pain) 1 % topical gel Apply 4 g topically 2 (two) times a day. 240 g 1 12/06/19 Active Encounters Date Type Department Care Team Description 10/06/2024 9:15 AM EDT Consult Orthopedic Surgery - [place] [address] [address] Kobi Saavedra, DPM Neuritis (Primary Dx); Bunion of left foot from Last 3 Months Surgical History Surgery Date Site/Laterality Comments TUBAL LIGATION PROCEDURE: HISTORICAL TUBAL LIGATION Medical History Medical History Date Comments HTN (hypertension) 03/14/2022 DX:HTN (hyper tension) Paroxysmal supraventricular tachycardia ([facility] V24) 03/14/2022 DX:Paroxysmal supraventricul ar tachycardia (HCC) [...] Blood Pressure 140/70 03/14/2022 3:05 PM EST Sit ting L Arm Pulse 67 03/14/2022 3:05 PM EST Temperature - - Respiratory Rate - - Oxygen Saturation - - Inhaled Oxygen Concentration - - Weight 89.8 kg (198 lb) 10/06/2024 9:32 AM EDT Height 157.5 cm (5' 2 ) 10/06/2024 9:32 AM EDT Body Mass Index 36.21 10/06/2024 9:32 AM EDT Plan of Treatment Upcoming Encounters Date Type Department Care Team (Late st Contact Info) Description 01/06/2025 10:15 AM EST Office Visit Orthopedic Surgery - [place] [address] [address] Kobi Saavedra, DPM [address] [address] Health Maintenance Due Date Last Done Comments Breast Cancer Screening 1976 Hepatitis B Vaccines (1 of 3 - 19+ 3-dose series) 05/10/1995 Colorectal Cancer Screening: Colonoscopy 03/19/2023 Medicare Annual Wellness Visit 03/19/2023 Social Influencers of Health Screening 03/19/2023 Depression Screening 02/19/2024 COVID-19 Vaccine ( season) 2024 06/26/2021, 05/28/2020 Influenza Vaccine (#1) 2024 , 11/09/2022, 02/06/2022, Additional history exists Hypertension/CHF/CAD Annual BMP Blood Test 08/02/2025 08/02/2024, 07/21/2024, 07/07/2024 Cervical Cancer Screening: Pap Smear 09/25/2025 09/25/2022 Cholesterol Screening (Lipid Panel) 07/24/2026 07/24/2021 DTaP,Tdap,and Td Vaccines (4 - Td or Tdap) 03/30/2032 03/30/2022, 01/22/2012, 12/25/2010 Pneumococcal Vaccine: Pediatrics (0 to 5 Years) and At-Risk Patients (6 to 49 Years) Completed 03/28/2023 HIV Screening Completed 04/23/2024 Hepatitis C Screening [...] to complete this topic RSV Immunization Patients Under 20 months Aged Out No longer eligible based on patient's age to complete this topic Varicella Vaccines Aged Out No longer eligible based on patient's age to complete this topic Procedures Procedure Name Priority Date/Time Associated Diagnosis Comments XR FOOT 3+ VIEWS LEFT Routine 10/06/2024 9:40 AM EDT Bunion of left foot from Last 3 Months Results * XR Foot 3+ Views Left (10/06/2024 9:40 AM EDT) Anatomical Region Laterality Modality Lower Extremities, Foot Left Computed Radiography Narrative 10/06/2024 12:38 PM EDT Left foot foot 3 views No fracture. No radiopaque foreign joint spaces Arthritis mild Severe bunion deformity left great toe Foot position Pes planus with Talus navicular uncovering decreased calcaneal inclination anterior displaced symes line talus navicular joint to calcaneal cuboid joint Kobi Saavedra DPM IMG XR PROCEDURES Final R esult from Last 3 Months Insurance [facility] MEDICARE Member Subscriber Plan / Payer (Ef fective 2013-Present) Name:TANK SANTIAGO Relation to Subscriber:Self Name:Tank Santiago Payer ID:[id number] Group ID:[id number] Type:Not on file Address: [place] [address] [place] [id number] Care Teams Manager Validation Relationship Specialty Start Date End Date Alex Sheriff MD [address] [place] [address] PCP - General 03/14/22
--- OUTSIDE RECORDS SUMMARY | 2024-10-29 16:00 | XMS_ITS | Clinical Summary ---
Author Organization [facility] Facility Address [address] [place] [address], [place] [address] Care Team Providers Care Compensator Worker Name Role Phone Alex Sheriff MD Primary Care Provider [phone] Allergies Active Allergy Reactions Criticality Noted Date Comments Morphine And Codeine 04/14/2020 Medications lisinopril (PRINIVIL,ZESTR IL) 40 MG tabletIndicatio ns:Hypertension Take 1 tablet by mouth 1 (one) time each day Active dilTIAZem (TIAZAC) 300 MG 24 hr capsuleIndicati ons:Hypertensio n Take 300 mg by mouth 1 (one) time each day Active butalbital-acet aminophen-caffe ine-codeine (FIORICET WITH CODEINE) 84-594-60-30 MG per capsuleIndicati ons:Hypertensio n Take 1 [...] 19+ 3-dose series) 05/10/1995 Influenza Vaccine (#1) 2024 Pneumococcal Vaccine: Peds ( 0 to 5 Years) and At-Risk Patients (6 to 49 Years) Aged Out No longer eligible b ased on patient's age to complete this topic Insurance [address] [place] [id number] [facility] ([id number]) [place] [id number] [facility] ([id number]) [place] [id number] Care Teams Compensator Worker Relationship Specialty Start Date End Date Alex Sheriff MD PCP - General 02/29/20
== END 2024-10-29 11:40 | disposition home or self-care (01) ==
LOC: HO.MAMMO 11:39
PROVIDERS: PCP Internal Medicine; Visit Provider Internal Medicine
DX: Z12.31 Encounter for screening mammogram for malignant neoplasm of breast (principal)
CPT/HCPCS: 77063; 77067

== ENCOUNTER → 2024-10-29 12:00 | Outpatient (BNV) | payer OTHER, SELFPAY | PROVIDERS: PCP Internal Medicine; Visit Provider Internal Medicine | DX: Z12.31 Encounter for screening mammogram for malignant neoplasm of breast (principal) | CPT/HCPCS: 77063; 77067 ==

== ENCOUNTER 2024-11-03 10:39 | Outpatient (AMB) | payer OTHER, SELFPAY ==
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
[2024-11-03 11:02] VITALS: BP 124/76; BMI 34.7
--- OUTSIDE RECORDS SUMMARY | 2024-11-03 14:09 | XMS_ITS | Encounter Summary ---
Author Organization [employer] Address [address] [facility] 7[address] [place] [address] Care Team Providers Care Christmas Tree Grader Name Role Phone Alex Sheriff MD Primary Care Provider [phone] Encounter Details Date Type Department Care Team ([facility] st Contact Info) Description 09/20/[address] [facility] MED & PEDS [address] [place], [place] [id number] Alex Sheriff MD [address] [place] [address] Social History Tobacco Use Types Packs/Day Years [...] Description 11/17/2024 11:30 AM EDT Office Visit [facility] MED & PEDS [address] [place] [address] Alex Sheriff MD [address] [place] [address] documented as of this encounter Visit Diagnoses Not on filedocumented in this encounter Care Teams Christmas Tree Grader Relationship Specialty Start Date End Date Alex Sheriff MD [address] [place] [address] PCP - General Internal Medicine 02/25/13 documented as of this encounter
--- OUTSIDE RECORDS SUMMARY | 2024-11-03 14:09 | XMS_ITS | Clinical Summary ---
Author Organization [facility] Facility Address [address] [place] [address], [place] [address] Care Team Providers Care Corn Cutter Operator Name Role Phone Alex Sheriff MD Primary Care Provider [phone] Allergies Active Allergy Reactions Criticality Noted Date Comments Morphine And Codeine 04/14/2020 Medications lisinopril (PRINIVIL,ZESTR IL) 40 MG tabletIndicatio ns:Hypertension Take 1 tablet by mouth 1 (one) time each day Active dilTIAZem (TIAZAC) 300 MG 24 hr capsuleIndicati ons:Hypertensio n Take 300 mg by mouth 1 (one) time each day Active butalbital-acet aminophen-caffe ine-codeine (FIORICET WITH CODEINE) 05-043-10-30 MG per capsuleIndicati ons:Hypertensio n Take 1 [...] age to complete this topic Insurance [address] [place] [id number] [facility] ([id number]) [place] [id number] [facility] ([id number]) [place] [id number] Care Teams Corn Cutter Operator Relationship Specialty Start Date End Date Alex Sheriff MD PCP - General 02/29/20
--- OUTSIDE RECORDS SUMMARY | 2024-11-03 14:10 | XMS_ITS | Encounter Summary ---
Author Organization [employer] Address [address] [place] [address] 7 [place] [address] Care Team Providers Care Keno Clerk Name Role Phone Alex Sheriff MD Primary Care Provider [phone] Encounter Details Date Type Department Care Team (Late Contact Info) Description 05/14/[address] [facility] [address] [place], [place] [phone] Matilde Norwood LPN Social History Tobacco Use [...] Department Care Team (Late Contact Info) Description 11/17/2024 11:30 AM EDT Office Visit [facility] [address] [place], [place] [phone] Alex Sheriff MD [address] [place] [address] documented as of this encounter Procedures Procedure [...] 1:35 PM EDT 08/07/2022 2:30 PM EDT [facility] - 08/08/2022 6:12 PM EDT ----- ------- Name: Tank Khan Age/Sex: 47/F : 1975 Unit#: [id number] Attend Dr: Matteo Littlejohn MD Re08/07/22 Status: [facility] [place] Location: [facility] Disch: ----- ------- SPEC : [id number] RECD: 08/07/22 STATUS: TERELL GALEANA NUM: [id number] YESI: 08/07/22-1335 [facility] DR: Matteo Littlejohn MD ENTERED: 08/07/22-142 SP TYPE: Surgical OTHR DR: Alex Sheriff MD ORDERED: GO Diagnosis Right ureteral stone: Calculous material. Gross examination only. Sent for chemical analysis. Please see laboratory portion of the EMR for outside report from [place]. Clinical History Pre-Op Dx: Calculus of kidney Post-Op Dx: Right ureteral stone Material Received Right ureteral stone Gross Description Received fresh labeled right ureteral stone is a 0.45 cm in greatest dimension hard, david calculus which is forwarded for chemical analysis. No soft tissue is identified. Gross description only. CEDS Copies To: Matteo Littlejohn MD [address] [place], [place] [address]А[address] [place] [address] [email or web address] Alex Sheriff MD [address] [place] [address] ----- ------- Signed (signature on file) Sterling White MD 08/08/22 9115 ----- ------- END OF REPORT [facility] External Provider LAB BLO OD ORDERABLES Final Result Performing Organization Address [facility] de Phone Number [facility] [address] [place] [phone] * HCG, Qualitative, Urine (08/07/2022 10:30 AM EDT) Urine NEGATIVE NEGATIVE [facility] Comment:This test was develo ped to detect early . Falsenegative results may occur after the 5th - 7th week ofpregnancy when using this test method. If clinicallyindicated, consider a serum hCG. 08/07/2022 10:3 0 AM EDT 08/07/2022 10:50 AM EDT [facility] External Provider LAB URI NE ORDERABLES Final Result Performing Organization Address [facility] de Phone Number [facility] [address] [place] [address] [phone] * hCG, Total, Quantitative (07/31/2022 7:47 PM EDT) HCG Quantitative <2 mIU/mL [facility] Comment:Weeks post LMP Appro ximate hCG(Last Menstrual Period) Range (mIU/ml)3 - 4 weeks 9 - 1304 - 5 weeks 75 - 2,6005 - 6 weeks 850 - 20,8006 - 7 weeks 4000 - 100,2007 - 12 weeks 11,500 - 289,40884 - 16 weeks 18,300 - 137,44393 - 29 weeks (2nd trimester) 1,400 - 53,39950 - 41 weeks (3rd trimester) 940 - 60,000The Moralez B- hCG assay is used for the early detection ofpregnancy; it cannot be used to diagnose any conditionunrelated to . If a B-hCG level is not supportedby the clinical evidence, results should be confirmed by analternative method (qualitative urine hCG, for example). 07/31/2022 7:47 PM EDT 07/31/2022 7:51 PM EDT Narrative [facility] - 07/31/2022 8:21 PM EDT ([facility]) [facility] External Provider LAB BLO OD ORDERABLES Final Result Performing Organization Address [facility]/ZIP Co de Phone Number [facility] [address] [place] [phone] * Lipase (07/31/2022 2:29 PM EDT) Lipase 22 8 - 78 U/L [facility] 07/31/2022 2:29 PM EDT 07/31/2022 2:35 PM EDT [facility] External Provider LAB BLO OD ORDERABLES Final Result Performing Organization Address [facility]/ZIP Co de Phone Number [facility] [address] [place] [address] [phone] * Magnesium (07/31/2022 2:29 PM EDT) Magnesium 2.2 1.6 - 2.6 mg/dL [facility] 07/31/2022 2:29 PM EDT 07/31/2022 2:35 PM EDT us [facility] External Provider LAB BLO OD ORDERABLES Final Result [facility] [address] [place] [address] [phone] * Basic Metabolic Panel (07/31/2022 2:29 PM EDT) Sodium 141 135 - 145 mmol/L [facility] Potassium 4.4 3.3 - 5.1 mmol/L [facility] Chloride 108 96 - 108 mmol/L [facility] Carbon Dioxide 25 22 - 29 mmol/L [facility] Anion Gap 12 12 - 20 [facility] Urea Nitrogen (BUN) 10 9 - 16 mg/dL [facility] Creatinine, Serum 0.74 0.5 - 1.4 mg/dL [facility] Creatinine Clr Calc Pharmacy 98.6 [facility] Comment:Provided height and weight: 157.48 cm,89.3 kg.eGFR (calculated from the MDRD study equation) and eCrCl(calculated from the Cockcroft-Gault equation) are based ondifferent parameters and may not yield comparable results.If eCrCl result is absurd, please check patient'sheight/weight. Estimated Glomerular Filt Rate >60 [facility] Comment:NOTE: For -Am erican individuals, multiply the result by 1.210.Chronic Kidney Disease: Estimated GFR < 60 mL/min/1.36e0Exqyky Kidney Disease: Estimated GFR < 15 mL/min/1.73m2 Glucose 104 60 - 115 mg/dL [facility] Calcium 9.8 8.4 - 10.2 mg/dL [facility] 07/31/2022 2:29 PM EDT 07/31/2022 2:35 PM EDT [facility] External Provider LAB BLO OD ORDERABLES Final Result Performing Organization Address [facility] Co de Phone Number [facility] [address] [place] [address] [phone] * Hepatic Function Panel (07/31/2022 2:29 PM EDT) Bilirubin, Total 0.5 0.0 - 1.0 mg/dL [facility] Bilirubin, Direct 0.1 0.0 - 0.5 mg/dL [facility] Aspartate Amino Transferase 22 5 - 31 U/L [facility] Alanine Aminotransferase 24 0 - 31 U/L [facility] Total Protein 7.5 6.5 - 8.0 g/dL [facility] Albumin Level 4.3 3.5 - 5.0 g/dL [facility] Alkaline Phosphatase 69 39 - 117 U/L [facility] 07/31/2022 2:29 PM EDT 07/31/2022 2:35 PM EDT [facility] External Provider LAB BLO OD ORDERABLES Final Result Performing Organization Address [facility] de Phone Number [facility] [address] [place] [phone] * (ABNORMAL) Complete Blood Count Manual Diff (07/31/2022 2:29 PM EDT) White Blood Count 10.0 4.8 - 10.8 X10*3/uL [facility] Red Blood Count 4.89 4.20 - 5.50 X10*6/uL [facility] Hemoglobin 13.5 12.0 - 16.0 g/dl [facility] Hematocrit 41.4 37.0 - 47.0 % [facility] Mean Corpuscular Volume 84.7 80.0 - 98.0 fL [facility] Mean Corpuscular Hemoglobin 27.6 27.0 - 33.0 pg [facility] Mean Corpuscular HGB Conc 32.6 31.0 - 35.0 g/dl [facility] Red Cell Distribution Width 14.4 11.0 - 16.0 % [facility] Platelet Count 322 160 - 400 X10*3/uL [facility] Mean Platelet Volume 9.4 9.4 - 12.3 fL [facility] NRBC Pct Auto 0.0 0.0 - 0.2 /100WBC [facility] NRBC Abs Auto 0.000 0.0 - 0.012 X10*3/uL [facility] Neutrophils % Manual 58 45 - 73 % [facility] Band Neutrophils Percent 1(L) 3 - 5 % [facility] Lymphocytes Percent Manual 30 20 - 40 % [facility] Monocytes Percent Manual 6 2 - 11 % [facility] EOSINOPHILS % MANUAL 5(H) 0 - 4 % [facility] NEUTROPHILS ABSOLUTE MANUAL 5.9 2.0 - 8.3 X10*3/uL [facility] LYMPHOCYTES ABSOLUTE MANUAL 3.0 1.2 - 4.9 X10*3/uL [facility] MONOCYTES ABSOLUTE MANUAL 0.6 0.1 - 1.2 X10*3/uL [facility] EOSINOPHILS ABSOLUTE MANUAL 0.5(H) 0.0 - 0.4 X10*3/uL [facility] Platelet Estimate NORMAL NORMAL [facility] Platelet Morphology Comment NORMAL [facility] RBC Morphology NOTED [facility] Ovalocytes 1+ (5-14) /OIF [facility] Acanthocytes 2+ (3-5) /F [facility] 07/31/2022 2:29 PM EDT 07/31/2022 2:35 PM EDT us [facility] External Provider LAB BLO OD ORDERABLES Final Result [facility] [address] [place] [address] [phone] * (ABNORMAL) Urinalysis, Complete, with Reflex to Culture (07/31/2022 2:29 PM EDT) Color Urine Yellow [facility] Appearance Urine Clear [facility] PH 6.5 5.0 - 9.0 [facility] Glucose Urine UA Negative Negative mg/dL [facility] Urine Blood Moderate (2+)(A) Negative [facility] Specific [place] - Urine <=1.005 1.005 - 1.025 [facility] Urine Protein Trace Neg-Trace mg/dL [facility] Urine Ketones Negative Negative mg/dL [facility] Nitrite Urine Negative Negative [facility] Leukocyte Esterase Urine Trace(A) Negative [facility] RBC Urine 3-5(A) 0 - 2 /HPF [facility] Urine WBC 0-5 0 - 5 /HPF [facility] Urine Squamous Epithelial Cell 3-5 0 - 2 /HPF [facility] Urine Bacteria None Seen None Seen [facility] Hyaline Casts, Urine 0-2 0 - 2 /LPF [facility] 07/31/2022 2:29 PM EDT 07/31/2022 2:35 PM EDT Narrative [facility] - 07/31/2022 3:14 PM EDT [id number], Clean Catch [facility] External Provider LAB URI NE ORDERABLES Final Result [facility] [address] [place] [phone] * Lactic Acid (07/16/2022 10:07 AM EDT) Lactic Acid 1.5 0.5 - 2.0 mmol/L [facility] 07/16/2022 10:0 7 AM EDT 07/16/2022 10:12 AM EDT [facility] External Provider LAB BLO OD ORDERABLES Final Result Performing Organization Address City/[facility]/ZIP Co de Phone Number [facility] [address] [place], [place] [phone] * (ABNORMAL) Urinalysis, Complete, with Reflex to Culture (07/16/2022 9:49 AM EDT) Color Urine Yellow [facility] Appearance Urine Cloudy [facility] PH 6.0 5.0 - 9.0 [facility] Glucose Urine UA Negative Negative mg/dL [facility] Urine Blood Large (3+)(A) Negative [facility] Specific [place] - Urine 1.015 1.005 - 1.025 [facility] Urine Protein 300 (3+)(A) Neg-Trace mg/dL [facility] Urine Ketones Negative Negative mg/dL [facility] Nitrite Urine Negative Negative [facility] Leukocyte Esterase Urine Large (3+)(A) Negative [facility] RBC Urine 3-5(A) 0 - 2 /HPF [facility] Urine WBC >50(A) 0 - 5 /HPF [facility] Urine Squamous Epithelial Cell 0-2 0 - 2 /HPF [facility] Urine Bacteria 4+ None Seen [facility] Hyaline Casts, Urine 3-5 0 - 2 /LPF [facility] 07/16/2022 9:49 AM EDT 07/16/2022 9:52 AM EDT Narrative [facility] - 07/16/2022 10:06 AM EDT [id number], Clean Catch [facility] External Provider LAB URI NE ORDERABLES Final Result Performing Organization Address [facility]/ZIP Co de Phone Number [facility] [address] [place], [place] [phone] * Magnesium (07/16/2022 7:42 AM EDT) Magnesium 1.8 1.6 - 2.6 mg/dL [facility] 07/16/2022 7:42 AM EDT 07/16/2022 7:45 AM EDT [facility] External Provider LAB BLO OD ORDERABLES Final Result [facility] [address] [place] [phone] * (ABNORMAL) Basic Metabolic Panel (07/16/2022 7:42 AM EDT) Sodium 137 135 - 145 mmol/L [facility] Potassium 4.4 3.3 - 5.1 mmol/L [facility] Comment:Slight Hemolysis Chloride 106 96 - 108 mmol/L [facility] Carbon Dioxide 19(L) 22 - 29 mmol/L [facility] Anion Gap 16 12 - 20 [facility] Urea Nitrogen (BUN) 11 9 - 16 mg/dL [facility] Creatinine, Serum 0.80 0.5 - 1.4 mg/dL [facility] Creatinine Clr Calc Pharmacy 91.5 [facility] Comment:Provided height and weight: 157.48 cm,89.811 kg.eGFR (calculated from the MDRD study equation) and eCrCl(calculated from the Cockcroft-Gault equation) are based ondifferent parameters and may not yield comparable results.If eCrCl result is absurd, please check patient'sheight/weight. Estimated Glomerular Filt Rate >60 [facility] Comment:NOTE: For -Am erican individuals, multiply the result by 1.210.Chronic Kidney Disease: Estimated GFR < 60 mL/min/1.67v2Wlfnlo Kidney Disease: Estimated GFR < 15 mL/min/1.73m2 Glucose 138(H) 60 - 115 mg/dL [facility] Calcium 9.4 8.4 - 10.2 mg/dL [facility] 07/16/2022 7:42 AM EDT 07/16/2022 7:45 AM EDT [facility] External Provider LAB BLO OD ORDERABLES Final Result Performing Organization Address [facility] de Phone Number [facility] [address] [place] [phone] * Hepatic Function Panel (07/16/2022 7:42 AM EDT) [facility] Signature Bilirubin, Total 0.4 0.0 - 1.0 mg/dL [facility] Bilirubin, Direct 0.1 0.0 - 0.5 mg/dL [facility] Comment:Slight Hemolysis Aspartate Amino Transferase 21 5 - 31 U/L [facility] Comment:Slight Hemolysis Alanine Aminotransferase 22 0 - 31 U/L [facility] Total Protein 7.3 6.5 - 8.0 g/dL [facility] Albumin Level 4.2 3.5 - 5.0 g/dL [facility] Alkaline Phosphatase 64 39 - 117 U/L [facility] 07/16/2022 7:42 AM EDT 07/16/2022 7:45 AM EDT [facility] External Provider LAB BLO OD ORDERABLES Final Result Performing Organization Address [facility] de Phone Number [facility] [address] [place] [phone] * (ABNORMAL) CBC auto differential (07/16/2022 7:42 AM EDT) White Blood Count 15.8(H) 4.8 - 10.8 X10*3/uL [facility] Red Blood Count 4.63 4.20 - 5.50 X10*6/uL [facility] Hemoglobin 12.9 12.0 - 16.0 g/dl [facility] Hematocrit 38.4 37.0 - 47.0 % [facility] Mean Corpuscular Volume 82.9 80.0 - 98.0 fL [facility] Mean Corpuscular Hemoglobin 27.9 27.0 - 33.0 pg [facility] Mean Corpuscular HGB Conc 33.6 31.0 - 35.0 g/dl [facility] Red Cell Distribution Width 14.4 11.0 - 16.0 % [facility] Platelet Count 308 160 - 400 X10*3/uL [facility] Mean Platelet Volume 9.6 9.4 - 12.3 fL [facility] Neutrophils Percent Auto 76.3(H) 45 - 73 % [facility] Imm Gran Pct Auto 0.4 0.0 - 0.4 % [facility] Lymphocytes Percent Auto 15.5(L) 20 - 40 % [facility] Monocytes Percent Auto 7.2 2 - 11 % [facility] Eosinophils Percent Auto 0.1 0 - 4 % [facility] Basophils Percent Auto 0.5 0 - 2 % [facility] NRBC Pct Auto 0.0 0.0 - 0.2 /100WBC [facility] Neutrophils Absolute Auto 12.1(H) 2.0 - 8.3 x10*3/uL [facility] Imm Gran Abs Auto 0.06(H) 0.00 - 0.03 X10*3/uL [facility] Lymphocytes Absolute Auto 2.5 1.2 - 4.9 X10*3/uL [facility] Monocytes Absolute Auto 1.1 0.1 - 1.2 X10*3/uL [facility] Eosinophils Absolute Auto 0.0 0.0 - 0.4 X10*3/uL [facility] Basophils Absolute Auto 0.1 0.0 - 0.2 X10*3/uL [facility] NRBC Abs Auto 0.000 0.0 - 0.012 X10*3/uL [facility] 07/16/2022 7:42 AM EDT 07/16/2022 7:45 AM EDT us [facility] External Provider LAB BLO OD ORDERABLES Final Result [facility] [address] [place] [phone] documented in this encounter Visit Diagnoses Not on filedocumented in this encounter Care Teams Keno Clerk Relationship Specialty Start Date End Date Alex Sheriff MD [address] [place] [phone] PCP - General Internal Medicine 02/25/13 documented as of this encounter
--- OUTSIDE RECORDS SUMMARY | 2024-11-03 14:10 | XMS_ITS | Clinical Summary ---
Author Organization [employer] Address [address] [facility] [address] [place] [address] Care Team Providers Care Eligibility Supervisor Name Role Phone Alex Sheriff MD Primary Care Provider [phone] Allergies Active Allergy Reactions Criticality Noted Date Comments Morphine Palpitations,Shortne s s of breath High 11/04/2020 Other Reaction(s): PAPLITATIONS, increased heart rate Morphine And Codeine High 01/22/2012 Other reaction(s): heart rate fast Medications * This document contains information received from the source organization and may not represent a complete record from that organization. butalbital-acetami nophen-caffeine 50-325-40 MG tabletIndications: Chronic migraine without aura without status migrainosus, not intractable Take 1 tablet by mouth every 6 (six) hours if needed for headaches. 20 tablet 01/30/20 23 Active Hypertonic Nasal Wash (Sinus Rinse Kit) pack Administer 1 packet into affected nostril(s) 3 times daily. Use with distilled water. 50 each 1 05/07/19 24 Active PARoxetine (Paxil) 10 MG tabletIndications: Hot flushes, perimenopausal Take 1 tablet (10 mg) by mouth in the morning. 30 tablet 11 11/05/19 24 025 Active sucralfate (Carafate) 1 GM/10ML suspensionIndicati ons:Other acute gastritis without hemorrhage BEFORE BREAKFAST, BEFORE LUNCH, BEFORE EVENING MEAL AND AT BEDTIME 120 mL 2 12/24/19 24 Active lisinopril 40 MG tablet take 1 tablet (40MG) by oral route every day 90 tablet 3 03/11/19 25 Active dilTIAZem ER (Tiazac) 300 MG 24 hr capsule Take 1 capsule (300 mg) by mouth Once per day. 90 capsule 3 03/25/19 25 Active omeprazole (PriLOSEC) [address] capsuleIndications :Gastroesophageal reflux disease without esophagitis TAKE 1 CAPSULE(20 MG) BY MOUTH BEFORE BREAKFAST. DO NOT CRUSH OR CHEW 90 capsule 3 04/23/19 25 Active fluticasone (Flonase) 50 MCG/ACT nasal sprayIndications:N sawyer congestion Administer 1-2 sprays into each nostril Once per day. Shake gently. Before first use, prime pump. After use, clean tip and replace cap. 16 g 11 04/24/19 25 026 Active mirtazapine (Remeron) 7.5 MG tablet TAKE 1 TABLET BY MOUTH EVERY DAY AT BEDTIME 90 tablet 3 05/19/19 25 Active ibuprofen 800 MG tabletIndications: Breast pain, left,Pain in left cavanaugh TAKE 1 TABLET(800 MG) BY MOUTH THREE TIMES DAILY 90 tablet 05/19/19 25 Active metoprolol succinate XL (Toprol-XL) 100 MG 24 hr tabletIndications: Primary hypertension TAKE 1 TABLET(100 MG) BY MOUTH IN THE MORNING. DO NOT CRUSH OR CHEW 30 tablet 11 05/20/19 25 Active Additional Information Patient taking differently: 0.5 tablet Daily, Reported on 08/10/2024 loratadine (Claritin) 10 MG tablet Take 1 tablet by mouth Once per day. Active Active Problems Problem Noted Date Diagnosed [...] Date Type Department Care Team Description 10/06/2024 Orders Only [facility] [address] [place] [address] ProviderAriella MD 08/17/2024 10:15 AM EDT Office Visit [facility] [address] [place] [address] Alex Sheriff MD Diverticulitis (Primary Dx); Vaginal bleeding; Primary hypertension 08/17/2024 Travel 08/14/2024 Orders Only GENERIC EXTERNAL DATA DEPARTMENT Provider, Generic External Data 08/11/2024 Orders Only GENERIC EXTERNAL DATA DEPARTMENT Provider, Generic External Data 08/10/2024 Orders Only GENERIC EXTERNAL DATA DEPARTMENT Provider, Generic External Data 08/07/2024 Patient Outreach [facility] [address] [place] [phone] Alex Sheriff MD Pre-visit Planning (HDF scheduled ) 08/07/[address] [address] Alex Sheriff MD Hospital Follow-up from Last 3 Months Immunizations Immunization Administration [...] Sign Reading Time Taken Comments Blood Pressure 129/87 08/17/2024 10:27 AM EDT Pulse 65 08/17/2024 10:27 AM EDT Temperature 36.5 C (97.7 F) 08/17/2024 10:27 AM EDT Respiratory Rate 20 08/17/2024 10:27 AM EDT Oxygen Saturation 98% 08/17/2024 10:27 AM EDT Inhaled Oxygen Concentration - - Weight 88.5 kg (195 lb) 08/17/2024 10:27 AM EDT Height 157.5 cm (5' 2 ) 08/17/2024 10:27 AM EDT Body Mass Index 35.67 08/17/2024 10:27 AM EDT Plan of Treatment Upcoming Encounters Date Type Department Care Team (Late st Contact Info) Description 11/17/2024 11:30 AM EDT Office Visit [facility] [address], [place] [phone] Alex Sheriff MD [address] [place] [address] Health Maintenance Due Date Last Done Comments CT Colonography 1975 Colonoscopy 1975 Colorectal Cancer Screening 1975 FIT DNA/Cologuard 1975 FIT 1975 FOBT 1975 Sigmoidoscopy 1975 Disability Screening 1975 Family Planning (PISQ) 05/10/1991 Hepatitis A Vaccines (1 of 2 - Risk 2-dose series) 05/10/1995 Hepatitis B Vaccines (1 of 3 - 19+ 3-dose series) 05/10/1995 COVID-19 Vaccine ( season) 2024 06/26/2021, 05/28/2020 Influenza Vaccine (#1) 2024 4, 11/09/2022, 02/06/2022, Additional history exists Alcohol/Substance Use Screening 04/23/2025 04/23/2024 Depression Screening 04/23/2025 04/23/2024, 04/24/19 SDOH Screening 04/23/2025 04/23/2024 Tobacco Screening 08/17/2025 08/17/2024 Zoster Vaccines (1 of 2) 2026 Lipid Panel 07/24/2026 07/24/2021 Mammogram 10/29/2026 10/29/2024, 0906/2023, 10/18/2022, Additional history exists Cervical Cancer Screening 09/26/2027 HPV/Cotest 09/26/2027 09/25/2022, 01/18, 11/29/2015 Pap Smear 09/26/2027 09/25/2022, 02/04/2019 DTaP/Tdap/Td Vaccines (4 - Td or Tdap) 03/30/2032 03/30/2022, 01/22/2012, 12/25/2010 RSV Patients and Patients Aged 60 years or older (1 - 1-dose 75+ series) 05/10/2051 Pneumococcal Vaccine: Pediatrics (0 to 5 Years) and At-Risk Patients (6 to 49) Years Completed 03/28/2023 HIV Screening Completed 04/23/2024 Hepatitis [...] Procedure Name Priority Date/Time Associated Diagnosis Comments BI MAMMOGRAM SCREENING TOMOSYNTHESIS BILATERAL Routine 10/29/2024 11:45 AM EDT XR FOOT 3+ VIEWS LEFT Routine 10/06/2024 3:41 PM EDT AMB REFERRAL TO PODIATRY Routine 10/06/2024 Bunion, left foot GLUCOSE, WHOLE BLOOD Routine 08/14/2024 3:09 PM EDT DRUG MONITOR, PANEL 1, SCREEN, URINE Routine 08/14/2024 3:01 PM EDT URINALYSIS, COMPLETE, WITH REFLEX TO CULTURE Routine 08/14/2024 3:[address] HEAD WO CONTRAST Routine 08/14/2024 2 :47 PM EDT HEMATOXYLIN AND EOSIN STAIN Routine 08/14/2024 12:51 PM EDT HCG, QL, URINE Routine 08/14/2024 11:35 AM EDT CA 125 Routine 08/11/2024 4:04 PM EDT TSH W/REFLEX TO FT4 Routine 08/11/2024 4 :04 PM EDT CBC Routine 08/10/2024 2:24 PM EDT HEPATITIS C AB W/REFL TO HCV RNA, QN, PCR Routine 04/23/2024 1:51 PM EST Screen for STD (sexually transmitted disease) HIV 1/2 ANTIGEN/ANTIBODY, FOURTH GENERATION W/RFL Routine 04/23/2024 1:51 PM EST Screen for STD (sexually transmitted disease) HPV MRNA E6/E7 REFLEX TO HPV 16, 18/45 Routine 09/25/2022 2:23 PM EDT PAP SMEAR Routine 09/25/2022 2:23 PM EDT LIPID PANEL, STANDARD Routine 07/24/2021 10:35 AM EDT from Last 3 Months or Most Recently Relevant to Health Maintenance Results * BI Mammogram Screening Tomosynthesis Bilateral (10/29/2024 11:45 AM EDT) Anatomical Region Laterality Modality Breast Bilateral Mammography 10/29/2024 11:4 5 AM EDT Narrative 11/02/2024 6:10 PM EDT [facility] [address] [place] [address] Mammography Report Signed Patient: Tank Khan MR#: [id number] : 1975 Acct:[id number] Age/Sex: 49 / F ADM Date: 10/29/24 Loc: HO.MAMMO Attending Dr: Alex Sheriff MD Ordering Physician: Alex Sheriff MD Results: 1 Negative Date of Service: 10/29/24 Follow Up: 1 Year From Orig ina Mammogram Procedure(s): MM tomosynthesis screening BI Accession Number(s): [id number] cc: Alex Sheriff MD Reason For Exam: SCREENING EXAMINATION: MM SCREENING DIGITAL BREAST TOMOSYNTHESIS, BILATERAL [...] mammogram. Electronically signed by: Penelope Johnson DO 11/02/2024 06:07 PM EDT Dictated By: Penelope Johnson DO Signed By: <Electronically signed by Penelope Johnson DO in OV> 11/02/241806 DD/ 1145 TD/TT: 10/29/24 1210 Computer Hardware Designer: Procedure Note Donotuseinterpreter, Image - 11/02/2024 [facility] [address] [place], [place] [address] Mammography Report Signed Patient: Tank Khan MR#: [id number] : 1975Acct:[id number] Age/Sex: 49 / FADM Date: 10/29/24 Loc: HO.MAMMO Attending Dr: Alex Sheriff MD Ordering Physician: Alex Sheriff MDResults: 1 Negative Date of Service: 10/29/24Follow Up: 1 Year From Orig inal Mammogram Procedure(s): MM tomosynthesis screening BI Accession Number(s): [id number] cc: Alex Sheriff MD Reason For Exam: SCREENING EXAMINATION: MM SCREENING DIGITAL BREAST TOMOSYNTHESIS, BILATERAL [...] mammogram. Electronically signed by: Penelope Johnson DO 11/02/2024 06:07 PM EDT Dictated By: Penelope Johnson DO Signed By: <Electronically signed by Penelope Johnson DO in OV> 11/02/241806 DD/ 1145 TD/TT: 10/29/24 1210 Computer Hardware Designer: us Alex Sheriff MD IMG BI PROCEDURES Final Res ult * XR Foot 3+ Views Left (10/06/2024 3:41 PM EDT) Anatomical Region Laterality Modality Lower Extremities, Foot Left Radiogra phic Imaging us Historical Provider IMG XR PROCEDURES Final R esult * Referral to Podiatry (10/06/2024) us Alex Sheriff MD OUTPATIENT REFERRAL ORDERAB LES Final Result * Glucose, Whole Blood (08/14/2024 3:09 PM EDT) Glucose, Whole Blood 115 60 - 115 mg/dL [facility] Comment:METER #: [id number] 08/14/2024 3:09 PM EDT 08/14/2024 3:11 PM EDT us Generic External Data Provider LAB BLOOD ORDERAB LES Final Result [facility] [address] [place] [phone] * (ABNORMAL) Urinalysis, Complete, with Reflex to Culture (08/14/2024 3:01 PM EDT) Color Urine Yellow [facility] Appearance Urine Clear [facility] PH 7.0 5.0 - 9.0 [facility] Glucose Urine UA Negative Negative mg/dL [facility] Urine Blood Large (3+)(A) Negative [facility] Specific [place]xton - Urine <=1.005 1.005 - 1.025 [facility] Urine Protein Negative Neg-Trace mg/dL [facility] Urine Ketones Negative Negative mg/dL [facility] Nitrite Urine Negative Negative [facility] Leukocyte Esterase Urine Negative Negative [facility] RBC Urine >20(A) 0 - 2 /HPF [facility] Urine WBC 0-5 0 - 5 /HPF [facility] Urine Squamous Epithelial Cell 0-2 0 - 2 /HPF [facility] Urine Bacteria None Seen None Seen [facility] Hyaline Casts, Urine 0-2 0 - 2 /LPF [facility] 08/14/2024 3:01 PM EDT 08/14/2024 3:04 PM EDT Narrative [facility] - 08/14/2024 3:13 PM EDT [id number], Clean Catch us Generic External Data Provider LAB URINE ORDERAB LES Final Result [facility] [address] [place] [address] [phone] * (ABNORMAL) Drug Monitoring, Panel 1, Screen, Urine (08/14/2024 3:01 PM EDT) Opiate Screen Urine Not Detected Not Detect [facility] Comment:Opiate cut-off is 30 0 ng/mL.Positive results are unconfirmed and should not be used fornon-medical purposes. Barbiturates, Urine Not Detected Not Detect [facility] Comment:Barbiturate cut-off is 200 ng/mL.Positive results are unconfirmed and should not be used fornon-medical purposes. Phencyclidine Screen Urine Not Detected Not Detect [facility] Comment:Phencyclidine cut-of f is 25 ng/mL.Positive results are unconfirmed and should not be used fornon-medical purposes. Amphetamine Screen Urine Not Detected Not Detect [facility] Comment:Amphetamine cut-off is 1000 ng/mL.Positive results are unconfirmed and should not be used fornon-medical purposes. Benzodiazepines Screen Urine POSITIVE(A) Not Detect [facility] Comment:Benzodiazepine cut-o ff is 200 ng/mL.Positive results are unconfirmed and should not be used fornon-medical purposes. Cocaine Screen Urine Not Detected Not Detect [facility] Comment:Cocaine cut-off is 3 00 ng/mL.Positive results are unconfirmed and should not be used fornon-medical purposes. Cannabinoid Screen Urine Not Detected Not Detect [facility] Comment:Cannabinoid cut-off is 50 ng/mL.Positive results are unconfirmed and should not be used fornon-medical purposes. Methadone Screen, Urine Not Detected Not Detect ng/mL [facility] Comment:Methadone cut-off is 300 ng/mL.Positive results are unconfirmed and should not be used fornon-medical purposes. FENTANYL URINE POSITIVE(A) Not Detect [facility] Comment:Fentanyl cut-off is 1 ng/mL.Positive results are unconfirmed and should not be used fornon-medical purposes. Oxycodone Urine Screen Not Detected Not Detect ng/mL [facility] Comment:Oxycodone cut-off is 100 ng/mL.Positive results are unconfirmed and should not be used fornon-medical purposes. Buprenorphine Screen Not Detected Not Detect ng/mL [facility] Comment:Buprenorphine cut-of f is 5 ng/mL.Positive results are unconfirmed and should not be used fornon-medical purposes. 08/14/2024 3:01 PM EDT 08/14/2024 3:04 PM EDT us Generic External Data Provider LAB URINE ORDERAB LES Final Result Performing Organization Address City/State/[facility] Co de Phone Number [facility] [address] [place] [phone] * CT Head w/o Contrast (08/14/2024 2:47 PM EDT) Anatomical Region Laterality Modality Head, Neck Computed Tomogra phy 08/14/2024 2:47 PM EDT Narrative 08/14/2024 4:10 PM EDT [address] [address] [address] Scan Report Signed Patient: Tank Khan MR#: [id number] : 1975 Acct:[id number] Age/Sex: 49 / F ADM Date: 08/14/24 Loc: HO.ED Attending Dr: Ordering Physician: Risa Reese NP Date of Service: 08/14/24 Procedure(s): CT head/brain wo IV con Accession Number(s): [id number] cc: Alex Sheriff MD; Risa Reese NP Report Number: [id number]: Total DLP = 676.00 mGy-cm EXAMINATION: CT HEAD WITHOUT CONTRAST CLINICAL INFORMATION: Seizure, with no history of seizures. COMPARISON: 04/07/2021. TECHNIQUE: Contiguous axial imaging was performed from the skull base to vertex without intravenous administration of contrast. This CT examination was performed using dose optimization techniques as appropriate, variously including the following: *Automated exposure control *Adjustment of mA and/or kV according to patient size (this includes techniques or standardized protocols for targeted exams where dose is matched to indication/reason for exam; i.e. extremities or head) *Use of iterative reconstruction technique FINDINGS: There is no evidence of intracranial hemorrhage or extra-axial fluid collection. There is no mass effect, or edema. No CT evidence of acute territorial infarct. Ventricles, sulci, and cisterns are normal in size and configuration for patient age. No hydrocephalus. No midline shift. Negative hyperdense MCA sign. Negative insular ribbon sign. Similar prominent Virchow-Sage space right subinsular region. No significant white matter abnormalities. Normal pituitary. Globes and orbital contents image normally. No extracranial soft tissue abnormalities. The paranasal sinuses, mastoid air cells, and tympanic cavities are normally aerated. No suspicious bony abnormalities. There are no acute fractures evident. CT/CT head/brain wo IV con IMPRESSION: No acute intracranial abnormality. Electronically signed by: Van Goldberg MD 08/14/2024 04:07 PM EDT Dictated By: Van Goldberg MD Signed By: <Electronically signed by Van Goldberg MD in OV> 08/14/24 1607 DD/ 1447 TD/TT: 08/14/24 1557 Computer Hardware Designer: Procedure Note Donotuseinterpreter, Image - 08/14/[address] [address] [address] Scan Report Signed Patient: Tank Khan MR#: [id number] : 1975Acct:[id number] Age/Sex: 49 / FADM Date: 08/14/24 Loc: HO.ED Attending Dr: Ordering Physician: Risa Reese NP Date of Service: 08/14/24 Procedure(s): CT head/brain wo IV con Accession Number(s): [id number] cc: Alex Sheriff MD; Risa Reese NP Report Number: [id number]: Total DLP = 676.00 mGy-cm EXAMINATION: CT HEAD WITHOUT CONTRAST CLINICAL INFORMATION: Seizure, with no history of seizures. COMPARISON: 04/07/2021. TECHNIQUE: Contiguous axial imaging was performed from the skull base to vertex without intravenous administration of contrast. This CT examination was performed using dose optimization techniques as appropriate, variously including the following: *Automated exposure control *Adjustment of mA and/or kV according to patient size (this includes techniques or standardized protocols for targeted exams where dose is matched to indication/reason for exam; i.e. extremities or head) *Use of iterative reconstruction technique FINDINGS: There is no evidence of intracranial hemorrhage or extra-axial fluid collection. There is no mass effect, or edema. No CT evidence of acute territorial infarct. Ventricles, sulci, and cisterns are normal in size and configuration for patient age. No hydrocephalus. No midline shift. Negative hyperdense MCA sign. Negative insular ribbon sign. Similar prominent Virchow-Sage space right subinsular region. No significant white matter abnormalities. Normal pituitary. Globes and orbital contents image normally. No extracranial soft tissue abnormalities. The paranasal sinuses, mastoid air cells, and tympanic cavities are normally aerated. No suspicious bony abnormalities. There are no acute fractures evident. CT/CT head/brain wo IV con IMPRESSION: No acute intracranial abnormality. Electronically signed by: Van Goldberg MD 08/14/2024 04:07 PM EDT Dictated By: Van Goldberg MD Signed By: <Electronically signed by Van Goldberg MD in OV> 08/14/24 1607 DD/ 1447 TD/TT: 08/14/24 1557 Computer Hardware Designer: [facility] External Provider IMG CT PROCEDURES Final Result * Hematoxylin and Eosin Stain (08/14/2024 12:51 PM EDT) 08/14/2024 12:5 1 PM EDT 08/14/2024 1:09 PM EDT [facility] - 08/17/2024 3:03 PM EDT ----- ------- Name: Tank Khan Age/Sex: 49/F : 1975 Unit#: [id number] Attend Dr: Chandler Uribe MD Re08/14/24 Status: REG [facility] Location: HO.SSS Disch: ----- ------- SPEC : [id number] RECD: 08/14/24-1308 STATUS: TERELL GALEANA NUM: [id number] YESI: 08/14/24-1251 [facility] [place] DR: Chandler Uribe MD ENTERED: 08/14/24-131 SP TYPE: Surgical OTHR DR: Alex Sheriff MD ORDERED: HE Stain/3, Gross Micro L4/2 Diagnosis A. Endometrium, curettage: Benign disordered proliferative endometrium with focal breakdown, and ectatic stromal vessels with focal fibrin thrombi; no atypia or carcinoma. B. Endometrium, polypectomy shavings: Benign disordered proliferative endometrium with marked stromal vascular ectasia and fibrin thrombi (may be derived from benign polyps); no atypia or carcinoma. Clinical History Pre-Op Dx: Abnormal uterine and vaginal bleeding Post-Op Dx: Endometrial polyp Microscopic Description Microscopic sections reviewed. Material Received A. [facility] B. Polypectomy shavings Gross Description Received in two parts. Part A: Received in formalin labeled [facility] on blood-stained Telfa are multiple congested and hemorrhagic, david-pink and red-maroon irregular tissue fragments with scant mucus and blood aggregating 3.0 x 2.5 x 0.5-0.8 cm, submitted in toto in cassettes A1-A3. Part B: Received in formalin labeled polypectomy shavings in a white cotton mesh suction sock device are multiple rubbery, david-white and daivd-pink irregular shards of tissue with scant red-maroon blood and mucus ranging from minute to 0.4 cm in greatest dimension and aggregating 1.5 x 1.5 x 0.45 cm, submitted in toto in a cassette labeled B. [facility] IHC S/NG Disclaimer NOTE: Unless otherwise stated, all tissue is formalin-fixed and paraffin-embedded. Some or all of the immunohistochemical tests reported herein may have been developed and their performance characteristics determined by [facility]. They have not been cleared or approved by the U.S. Food and Drug Administration (FDA). However, the FDA CONTINUED ON NEXT PAGE ----- ------- Name: Tank Khan Age/Sex: 49/F : 1975 Unit#: [id number] Attend Dr: Chandler Uribe MD Re08/14/24 Status: [facility] Location: [facility] Disch: ----- ------- SPEC : [id number] RECD: 08/14/24 STATUS: TERELL GALEANA NUM: [id number] YESI: 08/14/24-1251 [facility] [place] DR: Chandler Uribe MD ENTERED: 08/14/24 SP TYPE: Surgical OTHR DR: Alex Sheriff MD ORDERED: HE Stain/3, Gross Micro L4/2 IHC S/NG Disclaimer (Continued) has determined that such clearance or approval is not necessary. This laboratory is certified under the Clinical Laboratory Improvement Amendments of 1988 (CLIA) as qualified to perform high complexity clinical laboratory testing. Copies To: Alex Sheriff MD [address] [address] Chandler Uribe MD [facility] [address] [place] [phone] ----- ------- Signed (signature on file) Yuli Columbia 08/17/24 1503 ----- ------- END OF REPORT Generic External Data Provider LAB BLOOD ORDERAB LES Final Result Performing Organization Address City/[facility] Co de Phone Number [facility] [address] [place] [address] [phone] * HCG, Qualitative, Urine (08/14/2024 11:35 AM EDT) Urine NEGATIVE NEGATIVE [facility] Comment:This test was develo ped to detect early . Falsenegative results may occur after the 5th - 7th week ofpregnancy when using this test method. If clinicallyindicated, consider a serum hCG. 08/14/2024 11:3 5 AM EDT 08/14/2024 12:04 PM EDT Generic External Data Provider LAB URINE ORDERAB LES Final Result Performing Organization Address [facility] Co de Phone Number [facility] [address] [place] [address] [phone] * TSH with Reflex to Free T4 (08/11/2024 4:04 PM EDT) Pathologist [facility] TSH reflex Free T4 1.00 0.32 - 4.0 uIU/mL [facility] 08/11/2024 4:04 PM EDT 08/11/2024 4:04 PM EDT Generic External Data Provider LAB BLOOD ORDERAB LES Final Result Performing Organization Address [facility] Co de Phone Number [facility] [address] [place] [address] [phone] * CA 125 (08/11/2024 4:04 PM EDT) Pathologist [facility] CA 125 18 <35 U/mL [facility] Comment:This test was perfor med using the SiemensChemiluminescent method. Values obtained fromdifferent assay methods cannot be usedinterchangeably. CA 125 levels, regardless ofvalue, should not be interpreted as absoluteevidence of the presence or absence of disease.THIS TEST WAS PERFORMED AT:[facility] [place] [id number] THOMAS MD 08/11/2024 4:04 PM EDT 08/11/2024 4:04 PM EDT us Generic External Data Provider LAB BLOOD ORDERAB LES Final Result Performing Organization Address City/[facility]/ZIP Co de Phone Number [facility] [address] [place] [address] [phone] * (ABNORMAL) CBC (08/10/2024 2:24 PM EDT) White Blood Count 8.8 4.8 - 10.8 X10*3/uL [facility] Red Blood Count 4.07(L) 4.20 - 5.50 X10*6/uL [facility] Hemoglobin 11.1(L) 12.0 - 16.0 g/dl [facility] Hematocrit 33.2(L) 37.0 - 47.0 % [facility] Mean Corpuscular Volume 81.6 80.0 - 98.0 fL [facility] Mean Corpuscular Hemoglobin 27.3 27.0 - 33.0 pg [facility] Mean Corpuscular HGB Conc 33.4 31.0 - 35.0 g/dl [facility] Red Cell Distribution Width 15.0 11.0 - 16.0 % [facility] Platelet Count 307 160 - 400 X10*3/uL [facility] Mean Platelet Volume 9.1(L) 9.4 - 12.3 fL [facility] NRBC Pct Auto 0.0 0.0 - 0.2 /100WBC [facility] NRBC Abs Auto 0.000 0.0 - 0.012 X10*3/uL [facility] 08/10/2024 2:24 PM EDT 08/10/2024 2:24 PM EDT us Generic External Data Provider LAB BLOOD ORDERAB LES Final Result Performing Organization Address City/[facility]/ZIP Co de Phone Number [facility] [address] [place] [phone] * Hepatitis C Antibody with Reflex to HCV, RNA, Quantitative, Real-Time PCR (04/23/2024 1:51 PM EST) Hepatitis C Antibody Nonreactive Nonreactive [facility] Comment:Antibodies to HCV no t detected; does not exclude early acuteHCV infection. Blood Venous blood specimen / Unknown 04/23/2024 1:51 PM EST 04/23/2024 5:34 PM EST us Alex Sheriff MD LAB BLOOD ORDERABLES Final Result Performing Organization Address [facility] de Phone Number [facility] [address] [place] [phone] * HIV-1/2 Antigen and Antibodies, Fourth Generation, with Reflexes (04/23/2024 1:51 PM EST) Pathologist [facility] HIV AB/AG Nonreactive Nonreactive [facility] Comment:HIV-1 p24 Ag and/or HIV-1/HIV-2 Ab not detected.A test result that is nonreactive does not exclude thepossibility of exposure to or infection with HIV-1 and/orHIV-2. Nonreactive results in this assay for individualswith prior exposure to HIV-1 and/or HIV-2 may be due toantigen and antibody levels that are below the limit ofdetection of this assay.[employer] HIV Ag/Ab Combo assay result andsupplemental assay results should be interpreted inconjunction with the patient's clinical presentation,history and other laboratory results. If the results areinconsistent with clinical evidence, additional testing issuggested to confirm the result. Blood Venous blood specimen / Unknown 04/23/2024 1:51 PM EST 04/23/2024 5:34 PM EST us Alex Sheriff MD LAB BLOOD ORDERABLES Final Result Performing Organization Address [facility] Co de Phone Number [facility] [address] [place] [address] [phone] * HPV mRNA E6/E7 w/Reflex to HPV Genotypes 16, 18/45 (09/25/2022 2:23 PM EDT) HPV nRNA E6/E7 Not Detected Not Detected [facility] Comment:Methodology: Transcr iption-Mediated AmplificationThis assay detects E6/E7 viral messenger RNA (mRNA) from 14high-risk HPV types (16,18,31,33,35,39,45,51,52,56,58,59,66,68).Cervical sources are required for HPV testing.If a vaginal source from a patient who has had atotal hysterectomy with removal of cervix wassubmitted, please contact the testing laboratoryfor alternative testing options.For additional information, please refer tohttp://education.MediWound/faq/JJD130d2(This link if provided for information/educational purposes only.)THIS TEST WAS PERFORMED AT:[facility] [place] [phone] THOMAS MD HPV mRNA E6/E7 TNP [facility] HPV 16 RNA [facility] HPV 18/45 RNA [facility] 09/25/2022 2:23 PM EDT 09/27/2022 9:00 AM EDT Nadiya CARRANZA LAB CYTOLOGY ORDERABLES F inal Result [facility] [address] [place] [address] [phone] * Pap Smear (09/25/2022 2:23 PM EDT) 09/25/2022 2:23 PM EDT 09/27/2022 9:00 AM EDT Narrative [facility] - 10/24/2022 2:24 PM EDT ----- ------- Name: Tank Santiago Age/Sex: 47/F : 1975 Unit#: [id number] Attend Dr: NADIYA KUMAR CNM Re09/25/22 Status: DEP [facility]F [facility] Disch: ----- ------- SPEC : [id number] RECD: 09/27/22 STATUS: TERELL LISSETT NUM: [id number] YESI: 09/25/22-1423 [facility] [place] DR: NADIYA KUMAR CNM ENTERED: 09/27/229161 SP TYPE: Pap Smr OTHR DR: ORDERED: Pap Smear, PAP path review Interpretation General Category: Negative for intraepithelial lesion/malignancy. Adequacy: Endocervical component present. Interpretation: Reactive cellular changes. HPV mRNA E6/E7: Not Detected This assay detects E6/E7 viral messenger RNA (mRNA) from 14 high-risk HPV types (16, 18, 31, 33, 35, 39, 45, 51, 52, 56, 58, 59, 66, 68) HPV testing performed by [facility], [place], [place]. See reference laboratory portion of the EMR for entire report. Clinical Information LMP:Unknown date Previous PAP test:Unknown date/findings Other history: ASCUS, HPV neg 01/2019 Material Received ThinPrep-Cervical ----- ------- Signed (signature on file) Sterling White MD 10/24/22 1424 ----- ------- END OF REPORT us Nadiya Kumar [facility] CYTOLOGY ORDERABLES F inal Result [facility] [address] [place] [phone] * (ABNORMAL) LIPID PANEL, STANDARD (07/24/2021 10:35 AM EDT) Chol/HDLC Ratio 5.3(H) <5.0 (calc) [facility] Cholesterol, Total 219(H) <200 mg/dL [facility] HDL Cholesterol 41(L) > OR = 50 mg/dL [facility] LDL Cholesterol 147(H) mg/dL (calc) [facility] Comment: Reference range: <100 Desirable range <100 mg/dL for primary prevention; <70 mg/dL for patients with CHD or diabetic patients with > or = 2 CHD risk factors. LDL-C is now calculated using the Minh-Chauncey calculation, which is a validated novel method providing better accuracy than the Friedewald equation in the estimation of LDL-C. Minh MATAMOROS et al. POONAM. 2013;310(19): 2723-4541 (http://education.ShoorK.AppSurfer/faq/IGF410) Non-HDL Cholesterol 178(H) <130 mg/dL (calc) [facility] Comment: For patients with diabetes plus 1 major ASCVD risk factor, treating to a non-HDL-C goal of <100 mg/dL (LDL-C of <70 mg/dL) is considered a therapeutic option. Triglycerides 172(H) <150 mg/dL [facility] 07/24/2021 10:3 5 AM EDT Steph Rebolledo MD LAB BLOOD ORDERABLES Final Result [facility] [address] from Last 3 Months or Most Recently Relevant to Health Maintenance Insurance CCA ONE CARE < 65 CCA ONE CARE < 65 CCA ONE CARE < 65 [place] [id number] Care Teams Eligibility Supervisor Relationship Specialty Start Date End Date Alex Sheriff MD [address] [place] [address] PCP - General Internal Medicine 02/25/13
--- OUTSIDE RECORDS SUMMARY | 2024-11-03 14:10 | XMS_ITS | Encounter Summary ---
Author Organization [employer] Address 75 [facility] 7 [place] [address] Care Team Providers Care Studio Assistant Name Role Phone Alex Sheriff MD Primary Care Provider [phone] Reason for Visit * Reason Onset Date Comments Hospital Follow-up 08/07/2024 Encounter Details Date Type Department Care Team ([facility] st Contact Info) Description 08/07/2024 Telephone [facility] [address] [place] [address] Alex Sheriff MD [address] [place] [address] Hospital Follow-up Social History Tobacco Use Types [...] encounter Miscellaneous Notes * Telephone Encounter - Serge Santiago - 08/07/2024 1:09 PM EDT Tc from pt requesting a HDF appt. Hospital: [facility] Date of admission: 08/02/24 Discharge date: 08/05/24 Diagnosed: tere documented in this encounter Plan of Treatment Upcoming Encounters Date Type Department Care Team (Late st Contact Info) Description 11/17/2024 11:30 AM EDT Office Visit [facility] [address] [place] [address] Alex Sheriff MD [address] [place] [address] documented as of this encounter Visit Diagnoses Not on filedocumented in this encounter Additional Health Concerns Assessment Noted Time PHQ-9 Depression Total Score: 6 04/24/19 1:43 PM EST documented as of this encounter Care Teams Studio Assistant Relationship Specialty Start Date End Date Alex Sheriff MD [address] [place] [address] PCP - General Internal Medicine 02/25/13 documented as of this encounter
--- OUTSIDE RECORDS SUMMARY | 2024-11-03 14:10 | XMS_ITS | Encounter Summary ---
Author Organization [employer] Address 75 [facility] 7t [place] [address] Care Team Providers Care Raw Products Director Name Role Phone Alex Sheriff MD Primary Care Provider [phone] Reason for Visit * Reason Onset Date Comments Nurse Triage 05/20/2023 Encounter Details Date Type Department Care Team ([facility] st Contact Info) Description 05/20/2023 Telephone [facility] [address] [place] [address] Alex Sheriff MD [address] [place], [place] [phone] Nurse Triage Social History Tobacco Use Types [...] 11:30 AM EDT Office Visit [facility] & PEDS [address] [place] [address] Alex Sheriff MD [address] [place] [address] documented as of this encounter Visit Diagnoses Not on filedocumented in this encounter Care Teams Raw Products Director Relationship Specialty Start Date End Date Alex Sheriff MD [address] [place] [address] PCP - General Internal Medicine 02/25/13 documented as of this encounter
--- OUTSIDE RECORDS SUMMARY | 2024-11-03 14:10 | XMS_ITS | Encounter Summary ---
Author Organization [employer] Address [address] [facility] [address] 7t [place] [address] Care Team Providers Care Dragsaw Operator Name Role Phone Alex Sheriff MD Primary Care Provider [phone] Encounter Details Date Type Department Care Team (Late st Contact Info) Description 10/06/2024 Orders Only [facility]S [address] [place], [place] [phone] Provider, MD Ariella Social History Tobacco Use Types Packs/Day Years [...] Upcoming Encounters Date Type Department Care Team ([facility] Contact Info) Description 11/17/2024 11:30 AM EDT Office Visit [facility] [address] [place] [address] Alex Sheriff MD [address] [place] [address] documented as of this encounter Procedures Procedure Name Priority Date/Time Associated Diagnosis Comments BI MAMMOGRAM SCREENING TOMOSYNTHESIS BILATERAL Routine 10/29/2024 11:45 AM EDT XR FOOT 3+ VIEWS LEFT Routine 10/06/2024 3:41 PM EDT documented in this encounter Results * BI Mammogram Screening Tomosynthesis Bilateral (10/29/2024 11:45 AM EDT) Anatomical Region Laterality Modality Breast Bilateral Mammography 10/29/2024 11:4 5 AM EDT Narrative 11/02/2024 6:10 PM EDT [facility] [address] [place] [address] Mammography Report Signed Patient: Tank Khan MR#: [id number] : 1975 Acct:[id number] Age/Sex: 49 / F ADM Date: 10/29/24 Loc: HO.MAMMO Attending Dr: Alex Sheriff MD Ordering Physician: Alex Sheriff MD Results: 1 Negative Date of Service: 10/29/24 Follow Up: 1 Year From Orig inal Mammogram Procedure(s): MM tomosynthesis screening BI Accession Number(s): [id number] cc: Alex Sheriff MD Reason For Exam: [...] signed by Penelope Johnson DO in OV> 11/02/24 1807 DD/ 1145 TD/TT: 10/29/24 1210 Special Education Preschool Teacher: Procedure Note Donotuseinterpreter, Image - 11/02/2024 [facility] [address] [place] [address] [place] [address] Mammography Report Signed Patient: Tank Khan MR#: [id number] : 1975Acct:[id number] Age/Sex: 49 / FADM Date: 10/29/24 Loc: HO.MAMMO Attending Dr: Alex Sheriff MD Ordering Physician: Alex Sheriff MDResults: 1 Negative Date of Service: 10/29/24Follow Up: 1 Year From Orig inal Mammogram Procedure(s): MM tomosynthesis screening BI Accession Number(s): [id number] cc: Alex Sheriff MD Reason For Exam: [...] signed by Penelope Johnson DO in OV> 11/02/24 1807 DD/ 1145 TD/TT: 10/29/24 1210 Special Education Preschool Teacher: us Alex ULLOAG BI PROCEDURES Final Res ult * XR Foot 3+ Views Left (10/06/2024 3:41 PM EDT) Anatomical Region Laterality Modality Lower Extremities, Foot Left Radiogra phic Imaging us Historical Provider MD [place] XR PROCEDURES Final R esult documented in this encounter Visit Diagnoses Not on filedocumented in this encounter Additional Health Concerns Assessment Noted Time PHQ-9 Depression Total Score: 6 04/24/19 25 1:43 PM EST documented as of this encounter Care Teams Dragsaw Operator Relationship Specialty Start Date End Date Alex Sheriff MD [address] [place] [address] PCP - General Internal Medicine 02/25/13 documented as of this encounter
--- OUTSIDE RECORDS SUMMARY | 2024-11-03 14:10 | XMS_ITS | Encounter Summary ---
Author Organization [employer] Address 75 [facility] 7 [place] [address] Care Team Providers Care Hat Copyist Name Role Phone Alex Sheriff MD Primary Care Provider [phone] Reason for Visit * Reason Onset Date Comments Referral 07/08/2024 Encounter Details Date Type Department Care Team ([facility] st Contact Info) Description 07/08/2024 Telephone [facility] [address] [place] [address] Alex Sheriff MD [address] [place] [address] Referral Social History Tobacco Use Types Packs/Day Years [...] encounter Miscellaneous Notes * Telephone Encounter - Wing William RN - 07/08/2024 4:03 PM EDT Tc to pt regarding referral request. Pt was seen by [facility] on 07/07 for uterine bleeding. They advised pt to see OBGYN. Pt has been bleeding on her period sincde 06/02. Changed pads every 35 minutes but they are not completely soaked, they are replaced due to discomfort of being wet. Gave pt appt with PCP on 07/09 at 2:30 pm. Pt verbalized understanding and agreement with plan. * Telephone Encounter - Christina Contreras - 07/08/2024 2:03 PM EDT Tc from pt requesting referral for [facility] regarding Abnormal uterine bleeding. Pt was triage. See encounter 07/07. documented in this encounter Plan of Treatment Upcoming Encounters Date Type Department Care Team (Late st Contact Info) Description 11/17/2024 11:30 AM EDT Office Visit [facility] MED & PEDS [address] [place] [address] Alex Sheriff MD [address] [place] [address] documented as of this encounter Visit Diagnoses Not on filedocumented in this encounter Additional Health Concerns Assessment Noted Time PHQ-9 Depression Total Score: 6 04/24/19 25 1:43 PM EST documented as of this encounter Care Teams Hat Copyist Relationship Specialty Start Date End Date Alex Sheriff MD [address] [place] [address] PCP - General Internal Medicine 02/25/13 documented as of this encounter
--- OUTSIDE RECORDS SUMMARY | 2024-11-03 14:10 | XMS_ITS | Encounter Summary ---
Author Organization [employer] Address 75 [facility] 7 [place] [address] Care Team Providers Care Crossbar Frame Wirer Name Role Phone Alex Sheriff MD Primary Care Provider [phone] Reason for Visit * Reason Onset Date Comments Medication Question 08/05/2023 Encounter Details Date Type Department Care Team ([facility] Contact Info) Description 08/05/2023 Telephone [facility] [address] [place] [address] Alex Sheriff MD [address] [place], [place] [phone] Medication Question Social History Tobacco Use Types [...] a picnic yesterday and bent over to lemon picker something and 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 [...] Wash out Pollen * Nasal Washes - Ogmu-Jn-Udvc Instructions * Antihistamine Medicines for Hay Fever [...] Description 11/17/2024 11:30 AM EDT Office Visit [facility] MED & PEDS [address] [place] [address] Alex Sheriff MD [address] [place] [address] documented as of this encounter Visit Diagnoses Diagnosis Muscle pain Unspecified myalgia and myositis Wound of right lower extremity, subsequent encounter documented in this encounter Care Teams Crossbar Frame Wirer Relationship Specialty Start Date End Date Alex Sheriff MD [address] [place] [address] PCP - General Internal Medicine 02/25/13 documented as of this encounter
--- OUTSIDE RECORDS SUMMARY | 2024-11-03 14:10 | XMS_ITS | Encounter Summary ---
Author Organization [employer] Address 75 [facility] 7 [place] [address] Care Team Providers Care Rural Route Mail Carrier Name Role Phone Alex Sheriff MD Primary Care Provider [phone] Reason for Visit * Reason Onset Date Comments Hospital Follow-up 12/23/2023 Encounter Details Date Type Department Care Team ([facility] st Contact Info) Description 12/23/2023 Telephone [facility]INE [address] [place] [address] Alex Sheriff MD [address] [place] [phone] Hospital Follow-up Social History Tobacco Use Types [...] from pt requesting a HDF appt. Hospital: [facility] Date of admission: 12/18/2023 Discharge date: 12/22/2023 Diagnosed: Infection kidney *Send message to Topmost Clinical Care Coordinators documented in this encounter Plan of Treatment Upcoming Encounters Date Type Department Care Team (Late st Contact Info) Description 11/17/2024 11:30 AM EDT Office Visit [facility] MED & PEDS [address] [place] [address] Alex Sheriff MD [address] [place] [address] documented as of this encounter Visit Diagnoses Not on filedocumented in this encounter Care Teams Rural Route Mail Carrier Relationship Specialty Start Date End Date Alex Sheriff MD [address] [place] [address] PCP - General Internal Medicine 02/25/13 documented as of this encounter
--- OUTSIDE RECORDS SUMMARY | 2024-11-03 14:10 | XMS_ITS | Encounter Summary ---
Author Organization [employer] Address [address] [place] [address] [facility] [place] [address] Care Team Providers Care Magnetic Observer Name Role Phone Alex Sheriff MD Primary Care Provider [phone]- [phone] Encounter Details Date Type Department Care Team (Late Contact Info) Description 10/05/2022 Orders Only [facility] MED & PEDS [address] [place] [address] Alex Sheriff MD [address] [place] [address] Chronic migraine without aura with status migrainosus, [...] [facility] [address] [place] [address] Alex Sheriff MD [address] [place] [address] documented as of this encounter Visit Diagnoses Diagnosis Chronic migraine without aura with status migrainosus, not intractable- Primary documented in this encounter Care Teams Magnetic Observer Relationship Specialty Start Date End Date Alex Sheriff MD [address] [place] [address] PCP - General Internal Medicine 02/25/13 documented as of this encounter
--- OUTSIDE RECORDS SUMMARY | 2024-11-03 14:10 | XMS_ITS | Clinical Summary ---
Author Organization [address] [facility] Address [address] [place] [address] Phone Care Team Providers Care Mental Telepathist Name Role Phone Alex Sheriff MD Primary Care Provider [phone] Medications diclofenac (Voltaren Arthritis Pain) 1 % topical gel Apply 4 g topically 2 (two) times a day. 240 g 1 12/06/19 Active Encounters Date Type Department Care Team Description 10/06/2024 9:15 AM EDT Consult Orthopedic Surgery - [place] [address] [phone] Kobi Saavedra, DPM Neuritis (Primary Dx); Bunion of left foot from Last 3 Months Surgical History Surgery Date Site/Laterality Comments TUBAL LIGATION PROCEDURE: HISTORICAL TUBAL LIGATION Medical History Medical History Date Comments HTN (hypertension) 03/14/2022 DX:HTN (hyper tension) Paroxysmal supraventricular tachycardia ([facility] V24) 03/14/2022 DX:Paroxysmal supraventricul ar tachycardia [...] AM EST Office Visit Orthopedic Surgery - [place] [address] [address] Kobi Saavedra, DPM [address] [address] Health Maintenance Due Date Last [...] R esult from Last 3 Months Insurance [facility] MEDICARE Member Subscriber Plan / Payer (Ef fective 2013-Present) Name:TANK SANTIAGO Relation to Subscriber:Self Name:Tank Santiago Payer ID:[id number] Group ID:[id number] Type:Not on file Address: [place] [address] [place] [id number] Care Teams Mental Telepathist Relationship Specialty Start Date End Date Alex Sheriff MD [address] [place] [address] PCP - General 03/14/22
--- OUTSIDE RECORDS SUMMARY | 2024-11-03 14:10 | XMS_ITS | Encounter Summary ---
Author Organization [employer] Address 75 [facility] 7 [place] [address] Care Team Providers Care Traveling Phlebotomist Name Role Phone Alex Sheriff MD Primary Care Provider [phone] Reason for Visit * Reason Comments Med Refill Encounter Details Date Type Department Care Team ([facility] st Contact Info) Description 12/23/2023 Refill [facility] & PEDS [address] [place], [place] [phone] Alex Sheriff MD [address] [place] [address] Cerumen debris on tympanic membrane of left [...] 11:30 AM EDT Office Visit [facility] [address] [place] [address] Alex Sheriff MD [address] [place] [address] documented as of this encounter Visit Diagnoses Diagnosis Cerumen debris on tympanic membrane of left ear documented in this encounter Care Teams Traveling Phlebotomist Relationship Specialty Start Date End Date Alex Sheriff MD [address] [place] [address] PCP - General Internal Medicine 02/25/13 documented as of this encounter
--- OUTSIDE RECORDS SUMMARY | 2024-11-03 14:10 | XMS_ITS | Encounter Summary ---
Author Organization [employer] Address [address] [place] [address] [facility] [place] [address] Care Team Providers Care Welt Stitch Cleaner Name Role Phone Alex Sheriff MD Primary Care Provider [phone]- [phone] Encounter Details Date Type Department Care Team (Late Contact Info) Description 03/28/2022 Abstract [facility] MED & PEDS [address] [place] [address] Alex Sheriff MD [address] [place] [address] Social History Tobacco Use Types Packs/Day Years [...] Description 11/17/2024 11:30 AM EDT Office Visit [facility] MED & PEDS [address] [place] [address] Alex Sheriff MD [address] [place] [address] documented as of this encounter Visit Diagnoses Not on filedocumented in this encounter Care Teams Welt Stitch Cleaner Relationship Specialty Start Date End Date Alex Sheriff MD [address] [place] [address] PCP - General Internal Medicine 02/25/13 documented as of this encounter
--- OUTSIDE RECORDS SUMMARY | 2024-11-03 14:10 | XMS_ITS | Encounter Summary ---
Author Organization [employer] Address [address] [place] [address] 7 [place] [address] Care Team Providers Care Product Accountant Name Role Phone Alex Sheriff MD Primary Care Provider [phone]- [phone] Encounter Details Date Type Department Care Team (Late Contact Info) Description 09/14/2022 Orders Only [facility] MED & PEDS [address] [place] [address] Alex Sheriff MD [address] [place] [address] Chronic migraine without aura without status migrainosus, [...] Description 11/17/2024 11:30 AM EDT Office Visit [facility] MED & PEDS [address] [place] [address] Alex Sheriff MD [address] [place] [address] documented as of this encounter Visit Diagnoses Diagnosis Chronic migraine without aura without status migrainosus, not intractable- Primary documented in this encounter Care Teams Product Accountant Relationship Specialty Start Date End Date Alex Sheriff MD [address] [place] [address] PCP - General Internal Medicine 02/25/13 documented as of this encounter
--- OUTSIDE RECORDS SUMMARY | 2024-11-03 14:10 | XMS_ITS | Encounter Summary ---
Author Organization [employer] Address [address] [place] [address] [facility] [place] [address] Care Team Providers Care Universal Worker Assisted Living Name Role Phone Alex Sheriff MD Primary Care Provider [phone]- [phone] Encounter Details Date Type Department Care Team ([facility] Contact Info) Description 07/13/2022 Abstract [facility] MED & PEDS [address] [place] [address] Alex Sheriff MD [address] [place] [address] Social History Tobacco Use Types Packs/Day Years [...] Upcoming Encounters Date Type Department Care Team ([facility] Contact Info) Description 11/17/2024 11:30 AM EDT Office Visit [facility] PEDS [address] [place] [address] Alex Sheriff MD [address] [place] [address] documented as of this encounter Visit Diagnoses Not on filedocumented in this encounter Care Teams Universal Worker Assisted Living Relationship Specialty Start Date End Date Alex Sheriff MD [address] [place] [address] PCP - General Internal Medicine 02/25/13 documented as of this encounter
== END 2024-11-03 11:27 | disposition home or self-care (01) ==
LOC: HO.HWS 10:39
PROVIDERS: PCP Internal Medicine; Visit Provider Obstetrics & Gynecology
DX: Z30.430 Encounter for insertion of intrauterine contraceptive device (principal); Z32.02 Encounter for pregnancy test, result negative
CPT/HCPCS: 58300

== ENCOUNTER 2024-11-03 10:39 | Outpatient (REF) | payer OTHER, SELFPAY ==
[2024-11-04 10:42] LABS: CT PCR NOT DETECTED (Not Detect.); NG PCR NOT DETECTED (Not Detect.)
== END 2024-11-03 10:40 | disposition home or self-care (01) ==
LOC: HO.LNP 10:39
PROVIDERS: PCP Internal Medicine; Visit Provider Obstetrics & Gynecology
DX: Z30.430 Encounter for insertion of intrauterine contraceptive device (principal)
CPT/HCPCS: 58300; 81025; 87491; 87591; J7298

== ENCOUNTER 2024-11-10 10:12 | Outpatient (AMB) | payer OTHER, SELFPAY ==
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
--- OUTSIDE RECORDS SUMMARY | 2024-11-10 12:22 | XMS_ITS | Encounter Summary ---
Author Organization [employer] Address [address] [facility] [address] [place] [address] Care Team Providers Care Comfort Advisor Name Role Phone Alex Sheriff MD Primary Care Provider [phone] Reason for Visit * Reason Comments Med Refill Encounter Details Date Type Department Care Team ([facility] st Contact Info) Description 12/23/2023 Refill [facility]S [address] [place], [place] [phone] Alex Sheriff MD [address] [place] [address] Cerumen debris on tympanic membrane of left [...] Description 11/17/2024 11:30 AM EDT Office Visit [facility] MED & PEDS [address] [place] [address] Alex Sheriff MD [address] [place] [address] documented as of this encounter Visit Diagnoses Diagnosis Cerumen debris on tympanic membrane of left ear documented in this encounter Care Teams Comfort Advisor Relationship Specialty Start Date End Date Alex Sheriff MD [address] [place] [address] PCP - General Internal Medicine 02/25/13 documented as of this encounter
--- OUTSIDE RECORDS SUMMARY | 2024-11-10 12:22 | XMS_ITS | Encounter Summary ---
Author Organization [employer] Address [address] [facility] [address] [place] [address] Care Team Providers Care It Systems Manager Name Role Phone Alex Sheriff MD Primary Care Provider [phone] Encounter Details Date Type Department Care Team ([facility] st Contact Info) Description 09/20/2023 Orders Only [facility] MED & PEDS [address] [place], [place] [phone] Alex Sheriff MD [address] [place] [address] Social History Tobacco Use Types Packs/Day Years [...] Description 11/17/2024 11:30 AM EDT Office Visit [facility] MED & PEDS [address] [place] [address] Alex Sheriff MD [address] [place] [address] documented as of this encounter Visit Diagnoses Not on filedocumented in this encounter Care Teams It Systems Manager Relationship Specialty Start Date End Date Alex Sheriff MD [address] [place] [address] PCP - General Internal Medicine 02/25/13 documented as of this encounter
--- OUTSIDE RECORDS SUMMARY | 2024-11-10 12:22 | XMS_ITS | Clinical Summary ---
Author Organization [address] [facility] Address [address] [place] [address] Phone Care Team Providers Care Pipeline Construction Inspector Name Role Phone Alex Sheriff MD Primary Care Provider [phone] Medications diclofenac (Voltaren Arthritis Pain) 1 % topical gel Apply 4 g topically 2 (two) times a day. 240 g 1 12/06/19 Active Encounters Date Type Department Care Team Description 10/06/2024 9:15 AM EDT Consult Orthopedic Surgery - [address] [address] Kobi Saavedra, DPM Neuritis (Primary Dx); Bunion of left foot from Last 3 Months Surgical History Surgery Date Site/Laterality Comments TUBAL LIGATION PROCEDURE: HISTORICAL TUBAL LIGATION Medical History Medical History Date Comments HTN (hypertension) 03/14/2022 DX:HTN (hyper tension) Paroxysmal supraventricular tachycardia ([facility] V24) 03/14/2022 DX:Paroxysmal supraventricul ar tachycardia (HCC) [...] AM EST Office Visit Orthopedic Surgery - [place] [address] [address] Kobi Saavedra, DPM [address] [address] Health Maintenance Due Date Last [...] R esult from Last 3 Months Insurance [facility] MEDICARE Member Subscriber Plan / Payer (Ef fective 2013-Present) Name:TANK SANTIAGO Relation to Subscriber:Self Name:Tank Santiago Payer ID:[id number] Group ID:[id number] Type:Not on file Address: [place] [address] [address] [address] Care Teams Pipeline Construction Inspector Relationship Specialty Start Date End Date Alex Sheriff MD [address] [place] [address] PCP - General 03/14/22
--- OUTSIDE RECORDS SUMMARY | 2024-11-10 12:22 | XMS_ITS | Encounter Summary ---
Author Organization [employer] Address [address] [place] [address] 7 [place] [address] Care Team Providers Care Gre Tutor Name Role Phone Alex Sheriff MD Primary Care Provider [phone]- [phone] Encounter Details Date Type Department Care Team (Late Contact Info) Description 05/14/[address] [facility] [address] [place], [place] [phone] Matilde Norwood LPN Social History Tobacco Use [...] [facility] [address] [place], [place] [phone] Alex Sheriff MD [address] [place] [address] documented as of this encounter Procedures Procedure [...] 1:35 PM EDT 08/07/2022 2:30 PM EDT [facility] LABS - 08/08/2022 6:12 PM EDT ----- ------- Name: Tank Khan Age/Sex: 47/F : 1975 Unit#: [id number] Attend Dr: Matteo Littlejohn MD Re08/07/22 Status: [facility] Location: [facility] [place] Disch: ----- ------- SPEC : [id number] RECD: 08/07/22 STATUS: TERELL GALEANA NUM: [id number] YESI: 08/07/22-[address] [facility] [address]: Matteo Littlejohn MD ENTERED: 08/07/22-142 SP TYPE: Surgical OTHR DR: Alex Sheriff MD ORDERED: GO Diagnosis Right ureteral stone: Calculous material. Gross examination only. Sent for chemical analysis. Please see laboratory portion of the EMR for outside report from Berry White. Clinical History Pre-Op Dx: Calculus of kidney Post-Op Dx: Right ureteral stone Material Received Right ureteral stone Gross Description Received fresh labeled right ureteral stone is a 0.45 cm in greatest dimension hard, david calculus which is forwarded for chemical analysis. No soft tissue is identified. Gross description only. CEDS Copies To: Matteo Littlejohn MD [address] [place], [place] [address]А[address] [place] [address] [email or web address] Alex Sheriff MD [address] [place] [address] ----- ------- Signed (signature on file) Sterling White MD 08/08/22 9533 ----- ------- END OF REPORT [facility] External Provider LAB BLO OD ORDERABLES Final Result Performing Organization Address [facility] de Phone Number [facility] [address] [place] [phone] * HCG, Qualitative, Urine (08/07/2022 10:30 AM EDT) Urine NEGATIVE NEGATIVE [facility] Comment:This test was develo ped to detect early . Falsenegative results may occur after the 5th - 7th week ofpregnancy when using this test method. If clinicallyindicated, consider a serum hCG. 08/07/2022 10:3 0 AM EDT 08/07/2022 10:50 AM EDT [facility] External Provider LAB URI NE ORDERABLES Final Result Performing Organization Address [facility] de Phone Number [facility] [address] [place] [address] [phone] * hCG, Total, Quantitative (07/31/2022 7:47 PM EDT) HCG Quantitative <2 mIU/mL [facility] Comment:Weeks post LMP Appro ximate hCG(Last Menstrual Period) Range (mIU/ml)3 - 4 weeks 9 - 1304 - 5 weeks 75 - 2,6005 - 6 weeks 850 - 20,8006 - 7 weeks 4000 - 100,2007 - 12 weeks 11,500 - 289,51910 - 16 weeks 18,300 - 137,61949 - 29 weeks (2nd trimester) 1,400 - 53,09941 - 41 weeks (3rd trimester) 940 - 60,000The Moralez B- hCG assay is used for the early detection ofpregnancy; it cannot be used to diagnose any conditionunrelated to . If a B-hCG level is not supportedby the clinical evidence, results should be confirmed by analternative method (qualitative urine hCG, for example). 07/31/2022 7:47 PM EDT 07/31/2022 7:51 PM EDT Narrative [facility] - 07/31/2022 8:21 PM EDT ([facility]) [facility] External Provider LAB BLO OD ORDERABLES Final Result Performing Organization Address [facility]/ZIP Co de Phone Number [facility] [address] [place] [phone] * Lipase (07/31/2022 2:29 PM EDT) Lipase 22 8 - 78 U/L [facility] 07/31/2022 2:29 PM EDT 07/31/2022 2:35 PM EDT [facility] External Provider LAB BLO OD ORDERABLES Final Result Performing Organization Address [facility]/ZIP Co de Phone Number [facility] [address] [place] [address] [phone] * Magnesium (07/31/2022 2:29 PM EDT) Magnesium 2.2 1.6 - 2.6 mg/dL [facility] 07/31/2022 2:29 PM EDT 07/31/2022 2:35 PM EDT [facility] External Provider LAB BLO OD ORDERABLES Final Result [facility] [address] [place] [address] [phone] * Basic Metabolic Panel (07/31/2022 2:29 PM EDT) Sodium 141 135 - 145 mmol/L [facility] Potassium 4.4 3.3 - 5.1 mmol/L [facility] Chloride 108 96 - 108 mmol/L [facility] Carbon Dioxide 25 22 - 29 mmol/L [facility] Anion Gap 12 12 - 20 [facility] Urea Nitrogen (BUN) 10 9 - 16 mg/dL [facility] Creatinine, Serum 0.74 0.5 - 1.4 mg/dL [facility] Creatinine Clr Calc Pharmacy 98.6 [facility] Comment:Provided height and weight: 157.48 cm,89.3 kg.eGFR (calculated from the MDRD study equation) and eCrCl(calculated from the Cockcroft-Gault equation) are based ondifferent parameters and may not yield comparable results.If eCrCl result is absurd, please check patient'sheight/weight. Estimated Glomerular Filt Rate >60 [facility] Comment:NOTE: For -Am erican individuals, multiply the result by 1.210.Chronic Kidney Disease: Estimated GFR < 60 mL/min/1.45w0Lcfgic Kidney Disease: Estimated GFR < 15 mL/min/1.73m2 Glucose 104 60 - 115 mg/dL [facility] Calcium 9.8 8.4 - 10.2 mg/dL [facility] 07/31/2022 2:29 PM EDT 07/31/2022 2:35 PM EDT [facility] External Provider LAB BLO OD ORDERABLES Final Result Performing Organization Address [facility] Co de Phone Number [facility] [address] [place] [address] [phone] * Hepatic Function Panel (07/31/2022 2:29 PM EDT) Bilirubin, Total 0.5 0.0 - 1.0 mg/dL [facility] Bilirubin, Direct 0.1 0.0 - 0.5 mg/dL [facility] Aspartate Amino Transferase 22 5 - 31 U/L [facility] Alanine Aminotransferase 24 0 - 31 U/L [facility] Total Protein 7.5 6.5 - 8.0 g/dL [facility] Albumin Level 4.3 3.5 - 5.0 g/dL [facility] Alkaline Phosphatase 69 39 - 117 U/L [facility] 07/31/2022 2:29 PM EDT 07/31/2022 2:35 PM EDT [facility] External Provider LAB BLO OD ORDERABLES Final Result Performing Organization Address [facility] de Phone Number [facility] [address] [place] [phone] * (ABNORMAL) Complete Blood Count Manual Diff (07/31/2022 2:29 PM EDT) White Blood Count 10.0 4.8 - 10.8 X10*3/uL [facility] Red Blood Count 4.89 4.20 - 5.50 X10*6/uL [facility] Hemoglobin 13.5 12.0 - 16.0 g/dl [facility] Hematocrit 41.4 37.0 - 47.0 % [facility] Mean Corpuscular Volume 84.7 80.0 - 98.0 fL [facility] Mean Corpuscular Hemoglobin 27.6 27.0 - 33.0 pg [facility] Mean Corpuscular HGB Conc 32.6 31.0 - 35.0 g/dl [facility] Red Cell Distribution Width 14.4 11.0 - 16.0 % [facility] Platelet Count 322 160 - 400 X10*3/uL [facility] Mean Platelet Volume 9.4 9.4 - 12.3 fL [facility] NRBC Pct Auto 0.0 0.0 - 0.2 /100WBC [facility] NRBC Abs Auto 0.000 0.0 - 0.012 X10*3/uL [facility] Neutrophils % Manual 58 45 - 73 % [facility] Band Neutrophils Percent 1(L) 3 - 5 % [facility] Lymphocytes Percent Manual 30 20 - 40 % [facility] Monocytes Percent Manual 6 2 - 11 % [facility] EOSINOPHILS % MANUAL 5(H) 0 - 4 % [facility] NEUTROPHILS ABSOLUTE MANUAL 5.9 2.0 - 8.3 X10*3/uL [facility] LYMPHOCYTES ABSOLUTE MANUAL 3.0 1.2 - 4.9 X10*3/uL [facility] MONOCYTES ABSOLUTE MANUAL 0.6 0.1 - 1.2 X10*3/uL [facility] EOSINOPHILS ABSOLUTE MANUAL 0.5(H) 0.0 - 0.4 X10*3/uL [facility] Platelet Estimate NORMAL NORMAL [facility] Platelet Morphology Comment NORMAL [facility] RBC Morphology NOTED [facility] Ovalocytes 1+ (5-14) /OIF [facility] Acanthocytes 2+ (3-5) /F [facility] 07/31/2022 2:29 PM EDT 07/31/2022 2:35 PM EDT [facility] External Provider LAB BLO OD ORDERABLES Final Result [facility] [address] [place] [address] [phone] * (ABNORMAL) Urinalysis, Complete, with Reflex to Culture (07/31/2022 2:29 PM EDT) Color Urine Yellow [facility] Appearance Urine Clear [facility] PH 6.5 5.0 - 9.0 [facility] Glucose Urine UA Negative Negative mg/dL [facility] Urine Blood Moderate (2+)(A) Negative [facility] Specific [place] - Urine <=1.005 1.005 - 1.025 [facility] Urine Protein Trace Neg-Trace mg/dL [facility] Urine Ketones Negative Negative mg/dL [facility] Nitrite Urine Negative Negative [facility] Leukocyte Esterase Urine Trace(A) Negative [facility] RBC Urine 3-5(A) 0 - 2 /HPF [facility] Urine WBC 0-5 0 - 5 /HPF [facility] Urine Squamous Epithelial Cell 3-5 0 - 2 /HPF [facility] Urine Bacteria None Seen None Seen [facility] Hyaline Casts, Urine 0-2 0 - 2 /LPF [facility] 07/31/2022 2:29 PM EDT 07/31/2022 2:35 PM EDT Narrative [facility] - 07/31/2022 3:14 PM EDT [id number], Clean Catch [facility] External Provider LAB URI NE ORDERABLES Final Result [facility] [address] [place] [phone] * Lactic Acid (07/16/2022 10:07 AM EDT) Lactic Acid 1.5 0.5 - 2.0 mmol/L [facility] 07/16/2022 10:0 7 AM EDT 07/16/2022 10:12 AM EDT [facility] External Provider LAB BLO OD ORDERABLES Final Result Performing Organization Address City/[facility]/ZIP Co de Phone Number [facility] [address] [place], [place] [phone] * (ABNORMAL) Urinalysis, Complete, with Reflex to Culture (07/16/2022 9:49 AM EDT) Color Urine Yellow [facility] Appearance Urine Cloudy [facility] PH 6.0 5.0 - 9.0 [facility] Glucose Urine UA Negative Negative mg/dL [facility] Urine Blood Large (3+)(A) Negative [facility] Specific [place] - Urine 1.015 1.005 - 1.025 [facility] Urine Protein 300 (3+)(A) Neg-Trace mg/dL [facility] Urine Ketones Negative Negative mg/dL [facility] Nitrite Urine Negative Negative [facility] Leukocyte Esterase Urine Large (3+)(A) Negative [facility] RBC Urine 3-5(A) 0 - 2 /HPF [facility] Urine WBC >50(A) 0 - 5 /HPF [facility] Urine Squamous Epithelial Cell 0-2 0 - 2 /HPF [facility] Urine Bacteria 4+ None Seen [facility] Hyaline Casts, Urine 3-5 0 - 2 /LPF [facility] 07/16/2022 9:49 AM EDT 07/16/2022 9:52 AM EDT Narrative [facility] - 07/16/2022 10:06 AM EDT [id number], Clean Catch [facility] External Provider LAB URI NE ORDERABLES Final Result Performing Organization Address [facility]/ZIP Co de Phone Number [facility] [address] [place], [place] [phone] * Magnesium (07/16/2022 7:42 AM EDT) Magnesium 1.8 1.6 - 2.6 mg/dL [facility] 07/16/2022 7:42 AM EDT 07/16/2022 7:45 AM EDT [facility] External Provider LAB BLO OD ORDERABLES Final Result [facility] [address] [place] [address] [phone] * (ABNORMAL) Basic Metabolic Panel (07/16/2022 7:42 AM EDT) Sodium 137 135 - 145 mmol/L [facility] Potassium 4.4 3.3 - 5.1 mmol/L [facility] Comment:Slight Hemolysis Chloride 106 96 - 108 mmol/L [facility] Carbon Dioxide 19(L) 22 - 29 mmol/L [facility] Anion Gap 16 12 - 20 [facility] Urea Nitrogen (BUN) 11 9 - 16 mg/dL [facility] Creatinine, Serum 0.80 0.5 - 1.4 mg/dL [facility] Creatinine Clr Calc Pharmacy 91.5 [facility] Comment:Provided height and weight: 157.48 cm,89.811 kg.eGFR (calculated from the MDRD study equation) and eCrCl(calculated from the Cockcroft-Gault equation) are based ondifferent parameters and may not yield comparable results.If eCrCl result is absurd, please check patient'sheight/weight. Estimated Glomerular Filt Rate >60 [facility] Comment:NOTE: For -Am erican individuals, multiply the result by 1.210.Chronic Kidney Disease: Estimated GFR < 60 mL/min/1.85x8Gjzjnh Kidney Disease: Estimated GFR < 15 mL/min/1.73m2 Glucose 138(H) 60 - 115 mg/dL [facility] Calcium 9.4 8.4 - 10.2 mg/dL [facility] 07/16/2022 7:42 AM EDT 07/16/2022 7:45 AM EDT [facility] External Provider LAB BLO OD ORDERABLES Final Result Performing Organization Address [facility] de Phone Number [facility] [address] [place] [phone] * Hepatic Function Panel (07/16/2022 7:42 AM EDT) [facility] Signature Bilirubin, Total 0.4 0.0 - 1.0 mg/dL [facility] Bilirubin, Direct 0.1 0.0 - 0.5 mg/dL [facility] Comment:Slight Hemolysis Aspartate Amino Transferase 21 5 - 31 U/L [facility] Comment:Slight Hemolysis Alanine Aminotransferase 22 0 - 31 U/L [facility] Total Protein 7.3 6.5 - 8.0 g/dL [facility] Albumin Level 4.2 3.5 - 5.0 g/dL [facility] Alkaline Phosphatase 64 39 - 117 U/L [facility] 07/16/2022 7:42 AM EDT 07/16/2022 7:45 AM EDT [facility] External Provider LAB BLO OD ORDERABLES Final Result Performing Organization Address [facility] de Phone Number [facility] [address] [place] [phone] * (ABNORMAL) CBC auto differential (07/16/2022 7:42 AM EDT) White Blood Count 15.8(H) 4.8 - 10.8 X10*3/uL [facility] Red Blood Count 4.63 4.20 - 5.50 X10*6/uL [facility] Hemoglobin 12.9 12.0 - 16.0 g/dl [facility] Hematocrit 38.4 37.0 - 47.0 % [facility] Mean Corpuscular Volume 82.9 80.0 - 98.0 fL [facility] Mean Corpuscular Hemoglobin 27.9 27.0 - 33.0 pg [facility] Mean Corpuscular HGB Conc 33.6 31.0 - 35.0 g/dl [facility] Red Cell Distribution Width 14.4 11.0 - 16.0 % [facility] Platelet Count 308 160 - 400 X10*3/uL [facility] Mean Platelet Volume 9.6 9.4 - 12.3 fL [facility] Neutrophils Percent Auto 76.3(H) 45 - 73 % [facility] Imm Gran Pct Auto 0.4 0.0 - 0.4 % [facility] Lymphocytes Percent Auto 15.5(L) 20 - 40 % [facility] Monocytes Percent Auto 7.2 2 - 11 % [facility] Eosinophils Percent Auto 0.1 0 - 4 % [facility] Basophils Percent Auto 0.5 0 - 2 % [facility] NRBC Pct Auto 0.0 0.0 - 0.2 /100WBC [facility] Neutrophils Absolute Auto 12.1(H) 2.0 - 8.3 x10*3/uL [facility] Imm Gran Abs Auto 0.06(H) 0.00 - 0.03 X10*3/uL [facility] Lymphocytes Absolute Auto 2.5 1.2 - 4.9 X10*3/uL [facility] Monocytes Absolute Auto 1.1 0.1 - 1.2 X10*3/uL [facility] Eosinophils Absolute Auto 0.0 0.0 - 0.4 X10*3/uL [facility] Basophils Absolute Auto 0.1 0.0 - 0.2 X10*3/uL [facility] NRBC Abs Auto 0.000 0.0 - 0.012 X10*3/uL [facility] 07/16/2022 7:42 AM EDT 07/16/2022 7:45 AM EDT [facility] External Provider LAB BLO OD ORDERABLES Final Result [facility] [address] [place] [phone] documented in this encounter Visit Diagnoses Not on filedocumented in this encounter Care Teams Gre Tutor Relationship Specialty Start Date End Date Alex Sheriff MD [address] [place] [phone] PCP - General Internal Medicine 02/25/13 documented as of this encounter
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
--- OUTSIDE RECORDS SUMMARY | 2024-11-10 12:22 | XMS_ITS | Clinical Summary ---
Author Organization [facility] Address [address] [place] [address], [place] [address] Care Team Providers Care Contractor Buyer Name Role Phone Alex Sheriff MD Primary Care Provider [phone]- [phone] Allergies Active Allergy Reactions Criticality Noted Date Comments Morphine And Codeine 04/14/2020 Medications lisinopril (PRINIVIL,ZESTR IL) 40 MG tabletIndicatio ns:Hypertension Take 1 tablet by mouth 1 (one) time each day Active dilTIAZem (TIAZAC) 300 MG 24 hr capsuleIndicati ons:Hypertensio n Take 300 mg by mouth 1 (one) time each day Active butalbital-acet aminophen-caffe ine-codeine (FIORICET WITH CODEINE) 69-469-21-30 MG per capsuleIndicati ons:Hypertensio n Take 1 [...] age to complete this topic Insurance [address] [place] [id number] [facility] ([id number]) DONNA EGAN [id number] [facility] ([id number]) DONNA EGAN [id number] Care Teams Contractor Buyer Relationship Specialty Start Date End Date Alex Sheriff MD PCP - General 02/29/20
--- OUTSIDE RECORDS SUMMARY | 2024-11-10 12:22 | XMS_ITS | Encounter Summary ---
Author Organization [employer] Address [address] [place] [address] [facility] [place] [address] Care Team Providers Care Frame And Scrap Crusher Name Role Phone Alex Sheriff MD Primary Care Provider [phone]- [phone] Encounter Details Date Type Department Care Team ([facility] Contact Info) Description 07/13/2022 Abstract [facility] MED & PEDS [address] [place] [address] Alex Sheriff MD [address] [place] [address] Social History Tobacco Use Types Packs/Day Years [...] Upcoming Encounters Date Type Department Care Team ([facility] Contact Info) Description 11/17/2024 11:30 AM EDT Office Visit [facility] MED & PEDS [address] [place] [address] Alex Sheriff MD [address] [place] [address] documented as of this encounter Visit Diagnoses Not on filedocumented in this encounter Care Teams Frame And Scrap Crusher Relationship Specialty Start Date End Date Alex Sheriff MD [address] [place] [phone] PCP - General Internal Medicine 02/25/13 documented as of this encounter
--- OUTSIDE RECORDS SUMMARY | 2024-11-10 12:22 | XMS_ITS | Encounter Summary ---
Author Organization [employer] Address [address] [facility] 7 [place] [address] Care Team Providers Care Intelligence Research Specialist Name Role Phone Alex Sheriff MD Primary Care Provider [phone] Reason for Visit * Reason Onset Date Comments Hospital Follow-up 12/23/2023 Encounter Details Date Type Department Care Team ([facility] st Contact Info) Description 12/23/2023 Telephone [facility] MEDICINE [address] [place] [address] Alex Sheriff MD [address] [place] [address] [phone] Hospital Follow-up Social History Tobacco Use Types [...] from pt requesting a HDF appt. Hospital: [facility] Date of admission: 12/18/2023 Discharge date: 12/22/2023 Diagnosed: Infection kidney *Send message to [place] Clinical Care Coordinators documented in this encounter Plan of Treatment Upcoming Encounters Date Type Department Care Team (Late st Contact Info) Description 11/17/2024 11:30 AM EDT Office Visit [facility] MED & PEDS [address] [place] [address] Alex Sheriff MD [address] [place] [address] documented as of this encounter Visit Diagnoses Not on filedocumented in this encounter Care Teams Intelligence Research Specialist Relationship Specialty Start Date End Date Alex Sheriff MD [address] [place] [address] PCP - General Internal Medicine 02/25/13 documented as of this encounter
--- OUTSIDE RECORDS SUMMARY | 2024-11-10 12:22 | XMS_ITS | Encounter Summary ---
Author Organization [employer] Address [address] [facility] 7t [place] [address] Care Team Providers Care Tree Cutter Name Role Phone Alex Sheriff MD Primary Care Provider [phone] Reason for Visit * Reason Onset Date Comments Nurse Triage 05/20/2023 Encounter Details Date Type Department Care Team ([facility] st Contact Info) Description 05/20/2023 Telephone [facility] MEDICINE [address] [place] [address] Alex Sheriff MD [address] [place], [place] [phone] Nurse Triage Social History Tobacco Use Types [...] 11/17/2024 11:30 AM EDT Office Visit [facility] MED & PEDS [address] [place] [address] Alex Sheriff MD [address] [place] [address] documented as of this encounter Visit Diagnoses Not on filedocumented in this encounter Care Teams Tree Cutter Relationship Specialty Start Date End Date Alex Sheriff MD [address] [place] [address] PCP - General Internal Medicine 02/25/13 documented as of this encounter
--- OUTSIDE RECORDS SUMMARY | 2024-11-10 12:22 | XMS_ITS | Clinical Summary ---
Author Organization [employer] Address [address] [place] [address] Care Team Providers Care [employer] Gener[employer] Inspector Name Role Phone Alex Sheriff MD Primary Care Provider [phone]- [phone] Allergies Active Allergy Reactions Criticality Noted Date [...] the morning. 30 tablet 11 11/05/19 24 Active sucralfate (Carafate) 1 GM/10ML suspensionIndicati ons:Other [...] Encounters Date Type Department Care Team Description 11/03/2024 Orders Only GENERIC EXTERNAL DATA DEPARTMENT Provider, Generic External Data 10/06/2024 Orders Only [facility] [address] [place] [address] Ariella Lou MD 08/17/2024 10:15 AM EDT Office Visit [facility] [address] [place] [address] Alex Sheriff MD Diverticulitis (Primary Dx); Vaginal bleeding; Primary hypertension 08/17/2024 Travel 08/14/2024 Orders Only GENERIC EXTERNAL DATA DEPARTMENT Provider, Generic External Data 08/11/2024 Orders Only GENERIC EXTERNAL DATA DEPARTMENT Provider, Generic External Data 08/10/2024 Orders Only GENERIC EXTERNAL DATA DEPARTMENT Provider, Generic External Data from Last 3 Months Immunizations Immunization Administration [...] Description 11/17/2024 11:30 AM EDT Office Visit [facility] [address] [place] [address] Alex Sheriff MD [address] [place] [address] Health Maintenance Due Date Last Done Comments [...] 04/23/2025 04/23/2024 Depression Screening 04/23/2025 04/23/2024, 04/24/19 25 SDOH Screening 04/23/2025 04/23/2024 Tobacco Screening 08/17/2025 08/17/2024 Zoster Vaccines (1 of 2) 2026 Lipid Panel 07/24/2026 07/24/2021 Mammogram 10/29/2026 10/29/2024, 09/0 06/2023, 10/18/2022, Additional history exists Cervical Cancer Screening [...] Procedure Name Priority Date/Time Associated Diagnosis Comments CHLAMYDIA/N. GONORRHOEAE RNA, TMA, UROGENITAL Routine 11/03/2024 10:45 AM EDT BI MAMMOGRAM SCREENING TOMOSYNTHESIS BILATERAL Routine 10/29/2024 [...] Recently Relevant to Health Maintenance Results * Chlamydia/N. Gonorrhoeae RNA, TMA, Urogenitial (11/03/2024 10:45 AM EDT) CT PCR NOT DETECTED Not Detect. [facility] Comment:A not detected test result does not exclude the possibilityof infection because test results can be affected byimproper specimen collection, concurrent antibiotic therapy,or the number of organisms in the specimen which may bebelow the sensitivity of the test. As with many diagnostictests, results from the Xpert CT/NG assay should beinterpreted in conjunction with other laboratory andclinical data available to the clinician.Xpert CT/NG performance has not been evaluated in patientsless than 14 years of age. The assay should not be used forthe evaluationof suspected sexual abuse or for other medico-legalindications. Additional testing is recommended in anycircumstance when false positive or false negative resultscould lead to adverse medical, social or psychologicalconsequences. NG PCR NOT DETECTED Not Detect. [facility] Comment:A not detected test result does not exclude the possibilityof infection because test results can be affected byimproper specimen collection, concurrent antibiotic therapy,or the number of organisms in the specimen which may bebelow the sensitivity of the test. As with many diagnostictests, results from the Xpert CT/NG assay should beinterpreted in conjunction with other laboratory andclinical data available to the clinician.Xpert CT/NG performance has not been evaluated in patientsless than 14 years of age. The assay should not be used forthe evaluationof suspected sexual abuse or for other medico-legalindications. Additional testing is recommended in anycircumstance when false positive or false negative resultscould lead to adverse medical, social or psychologicalconsequences. 11/03/2024 10:4 5 AM EDT 11/03/2024 4:15 PM EDT us Generic External Data Provider LAB MICROBIOLOGY - GENERAL ORDERABLES Final Result [facility] [address] [place] [phone] * BI Mammogram Screening Tomosynthesis Bilateral (10/29/2024 11:45 AM EDT) Anatomical Region Laterality Modality Breast Bilateral Mammography 10/29/2024 11:4 5 AM EDT Narrative 11/02/2024 6:10 PM EDT [facility] [address] [place], [place] [address] Mammography Report Signed Patient: Tank Khan MR#: [id number] : 1975 Acct:[id number] Age/Sex: 49 / F ADM Date: 10/29/24 Loc: HO.MAMMO Attending Dr: Alex Sheriff MD Ordering Physician: Alex Sheriff MD Results: 1 Negative Date of Service: 10/29/24 Follow Up: 1 Year From Orig ina Mammogram Procedure(s): MM tomosynthesis screening BI Accession Number(s): [id number] cc: Alex Sheriff MD Reason For Exam: [...] 11/02/24 1807 DD/ 1145 TD/TT: 10/29/24 1210 District Adviser: Procedure Note Donotuseinterpreter, Image - 11/02/2024 [facility] [address] [place] [address] Mammography Report Signed Patient: Tank Khan MR#: [id number] : 1975Acct:[id number] Age/Sex: 49 / FADM Date: 10/29/24 Loc: HO.MAMMO Attending Dr: Alex Sheriff MD Ordering Physician: Alex Sheriff MDResults: 1 Negative Date of Service: 10/29/24Follow Up: 1 Year From Orig ina Mammogram Procedure(s): MM tomosynthesis screening BI Accession Number(s): [id number] cc: Alex Sheriff MD Reason For Exam: [...] 11/02/24 1807 DD/ 1145 TD/TT: 10/29/24 1210 District Adviser: us Alex Sheriff MD IMG BI PROCEDURES Final Res ult * XR Foot 3+ Views Left (10/06/2024 3:41 PM EDT) Anatomical Region Laterality Modality Lower Extremities, Foot Left Radiogra phic Imaging us Historical Provider IMG XR PROCEDURES Final R esult * Referral to Podiatry (10/06/2024) Alex Sheriff MD OUTPATIENT REFERRAL ORDERAB LES Final Result * Glucose, Whole Blood (08/14/2024 3:09 PM EDT) Glucose, Whole Blood 115 60 - 115 mg/dL [facility] Comment:METER #: [id number] 08/14/2024 3:09 PM EDT 08/14/2024 3:11 PM EDT Generic External Data Provider LAB BLOOD ORDERAB LES Final Result [facility] [address] [place] [phone] * (ABNORMAL) Urinalysis, Complete, with Reflex to Culture (08/14/2024 3:01 PM EDT) Color Urine Yellow [facility] Appearance Urine Clear [facility] PH 7.0 5.0 - 9.0 [facility] Glucose Urine UA Negative Negative mg/dL [facility] Urine Blood Large (3+)(A) Negative [facility] Specific [place] - Urine <=1.005 1.005 - 1.025 [facility] Urine Protein Negative Neg-Trace mg/dL [facility] Urine Ketones Negative Negative mg/dL [facility] Nitrite Urine Negative Negative [facility] Leukocyte Esterase Urine Negative Negative [facility] RBC Urine >20(A) 0 - 2 /HPF [facility] Urine WBC 0-5 0 - 5 /HPF [facility] Urine Squamous Epithelial Cell 0-2 0 - 2 /HPF [facility] Urine Bacteria None Seen None Seen [facility] Hyaline Casts, Urine 0-2 0 - 2 /LPF [facility] 08/14/2024 3:01 PM EDT 08/14/2024 3:04 PM EDT Narrative [facility] - 08/14/2024 3:13 PM EDT [id number], Clean Catch us Generic External Data Provider LAB URINE ORDERAB LES Final Result [facility] [address] [place] [address] [phone] * (ABNORMAL) Drug Monitoring, Panel 1, Screen, Urine (08/14/2024 3:01 PM EDT) Opiate Screen Urine Not Detected Not Detect [facility] Comment:Opiate cut-off is 30 0 ng/mL.Positive results are unconfirmed and should not be used fornon-medical purposes. Barbiturates, Urine Not Detected Not Detect [facility] Comment:Barbiturate cut-off is 200 ng/mL.Positive results are unconfirmed and should not be used fornon-medical purposes. Phencyclidine Screen Urine Not Detected Not Detect [facility] Comment:Phencyclidine cut-of f is 25 ng/mL.Positive results are unconfirmed and should not be used fornon-medical purposes. Amphetamine Screen Urine Not Detected Not Detect [facility] Comment:Amphetamine cut-off is 1000 ng/mL.Positive results are unconfirmed and should not be used fornon-medical purposes. Benzodiazepines Screen Urine POSITIVE(A) Not Detect [facility] Comment:Benzodiazepine cut-o ff is 200 ng/mL.Positive results are unconfirmed and should not be used fornon-medical purposes. Cocaine Screen Urine Not Detected Not Detect [facility] Comment:Cocaine cut-off is 3 00 ng/mL.Positive results are unconfirmed and should not be used fornon-medical purposes. Cannabinoid Screen Urine Not Detected Not Detect [facility] Comment:Cannabinoid cut-off is 50 ng/mL.Positive results are unconfirmed and should not be used fornon-medical purposes. Methadone Screen, Urine Not Detected Not Detect ng/mL [facility] Comment:Methadone cut-off is 300 ng/mL.Positive results are unconfirmed and should not be used fornon-medical purposes. FENTANYL URINE POSITIVE(A) Not Detect [facility] Comment:Fentanyl cut-off is 1 ng/mL.Positive results are unconfirmed and should not be used fornon-medical purposes. Oxycodone Urine Screen Not Detected Not Detect ng/mL [facility] Comment:Oxycodone cut-off is 100 ng/mL.Positive results are unconfirmed and should not be used fornon-medical purposes. Buprenorphine Screen Not Detected Not Detect ng/mL [facility] Comment:Buprenorphine cut-of f is 5 ng/mL.Positive results are unconfirmed and should not be used fornon-medical purposes. 08/14/2024 3:01 PM EDT 08/14/2024 3:04 PM EDT Generic External Data Provider LAB URINE ORDERAB LES Final Result Performing Organization Address City/State/[facility] Co de Phone Number [facility] [address] [place] [phone] * CT Head w/o Contrast (08/14/2024 2:47 PM EDT) Anatomical Region Laterality Modality Head, Neck Computed Tomogra phy 08/14/2024 2:47 PM EDT Narrative 08/14/2024 4:10 PM EDT [address] [address] [address] Scan Report Signed Patient: Tank Khan MR#: [id number] : 1975 Acct:[id number] Age/Sex: 49 / F ADM Date: 08/14/24 Loc: HO.ED Attending Dr: Ordering Physician: Risa Reese NP Date of Service: 08/14/24 Procedure(s): CT head/brain wo IV con Accession Number(s): [id number] cc: Alex Sheriff MD; Risa Reese NP Report Number: [id number]: Total DLP = 676.00 mGy-cm EXAMINATION: CT [...] 08/14/24 1607 DD/ 1447 TD/TT: 08/14/24 1557 District Adviser: Procedure Note Donotuseinterpreter, Image - 08/14/[address] [address] [address] Scan Report Signed Patient: Tank Khan MR#: [id number] : 1975Acct:[id number] Age/Sex: 49 / FADM Date: 08/14/24 Loc: HO.ED Attending Dr: Ordering Physician: Risa Reese NP Date of Service: 08/14/24 Procedure(s): CT head/brain wo IV con Accession Number(s): [id number] cc: Alex Sheriff MD; Risa Reese NP Report Number: [id number]: Total DLP = 676.00 mGy-cm EXAMINATION: CT [...] 08/14/24 1607 DD/ 1447 TD/TT: 08/14/24 1557 District Adviser: [facility] External Provider IMG CT PROCEDURES Final Result * Hematoxylin and Eosin Stain (08/14/2024 12:51 PM EDT) 08/14/2024 12:5 1 PM EDT 08/14/2024 1:09 PM EDT [facility] - 08/17/2024 3:03 PM EDT ----- ------- Name: Tank Khan Age/Sex: 49/F : 1975 Unit#: [id number] Attend Dr: Chandler Uribe MD Re08/14/24 Status: [facility] Location: [facility] Disch: ----- ------- SPEC : [id number] RECD: 08/14/24-1309 STATUS: TERELL GALEANA NUM: [id number] YESI: 08/14/24-[address] [facility] [address]: Chandler Uribe MD ENTERED: 08/14/24-1316 SP TYPE: Surgical OTHR DR: Alex Sheriff [...] Description Microscopic sections reviewed. Material Received A. [facility] B. Polypectomy shavings Gross Description Received in two parts. Part A: Received in formalin labeled [facility] on blood-stained Telfa are multiple congested and hemorrhagic, david-pink and red-maroon irregular tissue fragments with scant mucus and blood aggregating 3.0 x 2.5 x 0.5-0.8 cm, submitted in toto in cassettes A1-A3. Part B: Received in formalin labeled polypectomy shavings in a white cotton mesh suction sock device are multiple rubbery, david-white and david-pink irregular shards of tissue with scant red-maroon [...] developed and their performance characteristics determined by [facility]. They have not been cleared or approved by the U.S. Food and Drug Administration (FDA). However, the FDA CONTINUED ON NEXT PAGE ----- ------- Name: Tank Khan Age/Sex: 49/F : 1975 Unit#: [id number] Attend Dr: Chandler Uribe MD Re08/14/24 Status: [facility] Location: [facility] Disch: ----- ------- SPEC : [id number] RECD: 08/14/24 STATUS: TERELL GALEANA NUM: [id number] YESI: 08/14/24-[address] [facility] [address]: Chandler Uribe MD ENTERED: 08/14/24-1315 SP TYPE: Surgical OTHR DR: Alex Sheriff MD ORDERED: HE Stain/3, Gross Micro L4/2 IHC S/NG Disclaimer (Continued) has determined that such clearance or approval is not necessary. This laboratory is certified under the Clinical Laboratory Improvement Amendments of 1988 (CLIA) as qualified to perform high complexity clinical laboratory testing. Copies To: Alex Sheriff MD [address] [id number] Chandler Uribe MD [facility] [address] [place] [address] ----- ------- Signed (signature on file) Yuli Eric 08/17/24 1503 ----- ------- END OF REPORT us Generic External Data Provider LAB BLOOD ORDERAB LES Final Result [facility] [address] [place] [address] [phone] * HCG, Qualitative, Urine (08/14/2024 11:35 AM EDT) Pathologist [facility] Urine NEGATIVE NEGATIVE [facility] Comment:This test was develo ped to detect early . Falsenegative results may occur after the 5th - 7th week ofpregnancy when using this test method. If clinicallyindicated, consider a serum hCG. 08/14/2024 11:3 5 AM EDT 08/14/2024 12:04 PM EDT Generic External Data Provider LAB URINE ORDERAB LES Final Result Performing Organization Address [facility]/ZIP Co de Phone Number [facility] [address] [place] [phone] * TSH with Reflex to Free T4 (08/11/2024 4:04 PM EDT) Pathologist [facility] TSH reflex Free T4 1.00 0.32 - 4.0 uIU/mL [facility] 08/11/2024 4:04 PM EDT 08/11/2024 4:04 PM EDT Generic External Data Provider LAB BLOOD ORDERAB LES Final Result Performing Organization Address [facility] Co de Phone Number [facility] [address] [place] [phone] * CA 125 (08/11/2024 4:04 PM EDT) Pathologist [facility] CA 125 18 <35 U/mL [facility] Comment:This test was perfor med using the SiemensChemiluminescent method. Values obtained fromdifferent assay methods cannot be usedinterchangeably. CA 125 levels, regardless ofvalue, should not be interpreted as absoluteevidence of the presence or absence of disease.THIS TEST WAS PERFORMED AT:[employer] [place] [phone] THOMAS MD 08/11/2024 4:04 PM EDT 08/11/2024 4:04 PM EDT us Generic External Data Provider LAB BLOOD ORDERAB LES Final Result Performing Organization Address City/[facility]/ZIP Co de Phone Number [facility] [address] [place] [phone] * (ABNORMAL) CBC (08/10/2024 2:24 PM EDT) White Blood Count 8.8 4.8 - 10.8 X10*3/uL [facility] Red Blood Count 4.07(L) 4.20 - 5.50 X10*6/uL [facility] Hemoglobin 11.1(L) 12.0 - 16.0 g/dl [facility] Hematocrit 33.2(L) 37.0 - 47.0 % [facility] Mean Corpuscular Volume 81.6 80.0 - 98.0 fL [facility] Mean Corpuscular Hemoglobin 27.3 27.0 - 33.0 pg [facility] Mean Corpuscular HGB Conc 33.4 31.0 - 35.0 g/dl [facility] Red Cell Distribution Width 15.0 11.0 - 16.0 % [facility] Platelet Count 307 160 - 400 X10*3/uL [facility] Mean Platelet Volume 9.1(L) 9.4 - 12.3 fL [facility] NRBC Pct Auto 0.0 0.0 - 0.2 /100WBC [facility] NRBC Abs Auto 0.000 0.0 - 0.012 X10*3/uL [facility] 08/10/2024 2:24 PM EDT 08/10/2024 2:24 PM EDT us Generic External Data Provider LAB BLOOD ORDERAB LES Final Result Performing Organization Address City/[facility]/ZIP Co de Phone Number [facility] [address] [place] [phone] * Hepatitis C Antibody with Reflex to HCV, RNA, Quantitative, Real-Time PCR (04/23/2024 1:51 PM EST) Hepatitis C Antibody Nonreactive Nonreactive [facility] Comment:Antibodies to HCV no t detected; does not exclude early acuteHCV infection. Blood Venous blood specimen / Unknown 04/23/2024 1:51 PM EST 04/23/2024 5:34 PM EST us Alex Sheriff MD LAB BLOOD ORDERABLES Final Result Performing Organization Address [facility]/ZIP Co de Phone Number [facility] [address] [place] [phone] * HIV-1/2 Antigen and Antibodies, Fourth Generation, with Reflexes (04/23/2024 1:51 PM EST) HIV AB/AG Nonreactive Nonreactive [facility] Comment:HIV-1 p24 Ag and/or HIV-1/HIV-2 Ab not detected.A test result that is nonreactive does not exclude thepossibility of exposure to or infection with HIV-1 and/orHIV-2. Nonreactive results in this assay for individualswith prior exposure to HIV-1 and/or HIV-2 may be due toantigen and antibody levels that are below the limit ofdetection of this assay.The [employer] HIV Ag/Ab Combo assay result andsupplemental assay results should be interpreted inconjunction with the patient's clinical presentation,history and other laboratory results. If the results areinconsistent with clinical evidence, additional testing issuggested to confirm the result. Blood Venous blood specimen / Unknown 04/23/2024 1:51 PM EST 04/23/2024 5:34 PM EST us Alex Sheriff MD LAB BLOOD ORDERABLES Final Result Performing Organization Address [facility]/ZIP Co de Phone Number [facility] [address] [place] [phone] * HPV mRNA E6/E7 w/Reflex to HPV Genotypes 16, 18/45 (09/25/2022 2:23 PM EDT) HPV nRNA E6/E7 Not Detected Not Detected [facility] Comment:Methodology: Transcr iption-Mediated AmplificationThis assay detects E6/E7 viral messenger RNA (mRNA) from 14high-risk HPV types (16,18,31,33,35,39,45,51,52,56,58,59,66,68).Cervical sources are required for HPV testing.If a vaginal source from a patient who has had atotal hysterectomy with removal of cervix wassubmitted, please contact the testing laboratoryfor alternative testing options.For additional information, please refer tohttp://education.[employer]efsis/faq/JJJ639x1(This link if provided for information/educational purposes only.)THIS TEST WAS PERFORMED AT:[employer] [place] [phone] THOMAS MD HPV mRNA E6/E7 [facility] HPV 16 RNA [facility] HPV 18/45 RNA [facility] 09/25/2022 2:23 PM EDT 09/27/2022 9:00 AM EDT Nadiya Kumar [facility] CYTOLOGY ORDERABLES F inal Result [facility] [address] [place] [phone] * Pap Smear (09/25/2022 2:23 PM EDT) 09/25/2022 2:23 PM EDT 09/27/2022 9:00 AM EDT Narrative [facility] - 10/24/2022 2:24 PM EDT ----- ------- Name: Tank Santiago Age/Sex: 47/F : 1975 Unit#: [id number] Attend Dr: NADIYA KUMAR CNM Re09/25/22 Status: DEP REF Location: [facility] Disch: ----- ------- SPEC : [id number] RECD: 09/27/22-899 STATUS: TERELL GALEANA NUM: [id number] YESI: 09/25/22-[address] [facility] [address]: NADIYA KUMAR ENTERED: 09/27/22-1775 SP TYPE: Pap Smr OT DR: ORDERED: Pap Smear, PAP path review Interpretation General Category: Negative for intraepithelial lesion/malignancy. Adequacy: Endocervical component present. Interpretation: Reactive cellular changes. HPV mRNA E6/E7: Not Detected This assay detects E6/E7 viral messenger RNA (mRNA) from 14 high-risk HPV types (16, 18, 31, 33, 35, 39, 45, 51, 52, 56, 58, 59, 66, 68) HPV testing performed by [facility], [place], [place]. See reference laboratory portion of the EMR for entire report. Clinical Information LMP:Unknown date Previous PAP test:Unknown date/findings Other history: ASCUS, HPV neg 01/2019 Material Received ThinPrep-Cervical ----- ------- Signed (signature on file) Sterling White MD 10/24/22 1424 ----- ------- END OF REPORT us Nadiya Kumar [facility] CYTOLOGY ORDERABLES F inal Result [facility] [address] [place] [phone] * (ABNORMAL) LIPID PANEL, STANDARD (07/24/2021 [...] LDL-C. Minh MATAMOROS et al. POONAM. 2013;310(19): 9595-2463 (http://education.[employer]/faq/QBK405) Non-HDL Cholesterol 178(H) <130 mg/dL (calc) [facility] Comment: For patients with diabetes plus 1 major ASCVD risk factor, treating to a non-HDL-C goal of <100 mg/dL (LDL-C of <70 mg/dL) is considered a therapeutic option. Triglycerides 172(H) <150 mg/dL [facility] 07/24/2021 10:3 5 AM EDT Steph Rebolledo MD LAB BLOOD ORDERABLES Final Result [facility] [address] [place] [address], from Last 3 Months or Most Recently Relevant to Health Maintenance Insurance [employer] < 65 [place] [id number] [employer] < 65 [place] [id number] [employer] < 65 [place] [id number] Care Teams [employer] Gener[employer] Inspector Relationship Specialty Start Date End Date Alex Sheriff MD [address] [place] [phone] PCP - General Internal Medicine 02/25/13
--- OUTSIDE RECORDS SUMMARY | 2024-11-10 12:23 | XMS_ITS | Encounter Summary ---
Author Organization [employer] Address [address] [place] [address] [address] [place] [address] Care Team Providers Care Supply Officer Name Role Phone Alex Sheriff MD Primary Care Provider [phone] Encounter Details Date Type Department Care Team (Late Contact Info) Description 09/14/2022 Orders Only [facility] [address] [place] [address] Alex Sheriff MD [address] [place] [address] Chronic migraine without aura without status migrainosus, [...] 11/17/2024 11:30 AM EDT Office Visit [facility] [address] [place] [address] Alex Sheriff MD [address] [place] [address] documented as of this encounter Visit Diagnoses Diagnosis Chronic migraine without aura without status migrainosus, not intractable- Primary documented in this encounter Care Teams Supply Officer Relationship Specialty Start Date End Date Alex Sheriff MD [address] [place] [phone] PCP - General Internal Medicine 02/25/13 documented as of this encounter
--- OUTSIDE RECORDS SUMMARY | 2024-11-10 12:23 | XMS_ITS | Encounter Summary ---
Author Organization [employer] Address [address] [place] [address] 7[facility] [place] [address] Care Team Providers Care Cartoon Animator Name Role Phone Alex Sheriff MD Primary Care Provider [phone]- [phone] Encounter Details Date Type Department Care Team (Late Contact Info) Description 03/28/2022 Abstract [facility] MED & PEDS [address] [place] [address] Alex Sheriff MD [address] [place] [address] Social History Tobacco Use Types Packs/Day Years [...] Description 11/17/2024 11:30 AM EDT Office Visit [facility] MED & PEDS [address] [place] [address] Alex Sheriff MD [address] [place] [address] documented as of this encounter Visit Diagnoses Not on filedocumented in this encounter Care Teams Cartoon Animator Relationship Specialty Start Date End Date Alex Sheriff MD [address] [place] [address] PCP - General Internal Medicine 02/25/13 documented as of this encounter
--- OUTSIDE RECORDS SUMMARY | 2024-11-10 12:23 | XMS_ITS | Encounter Summary ---
Author Organization [employer] Address 75 [facility] 7 [place] [address] Care Team Providers Care Assistant Store Director Name Role Phone Alex Sheriff MD Primary Care Provider [phone] Reason for Visit * Reason Onset Date Comments Hospital Follow-up 08/07/2024 Encounter Details Date Type Department Care Team ([facility] st Contact Info) Description 08/07/2024 Telephone [facility] MEDICINE [address] [place] [address] Alex Sheriff MD [address] [place] [address] Hospital Follow-up Social History Tobacco Use Types [...] from pt requesting a HDF appt. Hospital: [facility] Date of admission: 08/02/24 Discharge date: 08/05/24 Diagnosed: tere documented in this encounter Plan of Treatment Upcoming Encounters Date Type Department Care Team (Late st Contact Info) Description 11/17/2024 11:30 AM EDT Office Visit [facility] MED & PEDS [address] [place] [address] Alex Sheriff MD [address] [place] [address] documented as of this encounter Visit Diagnoses Not on filedocumented in this encounter Additional Health Concerns Assessment Noted Time PHQ-9 Depression Total Score: 6 04/24/19 1:43 PM EST documented as of this encounter Care Teams Assistant Store Director Relationship Specialty Start Date End Date Alex Sheriff MD [address] [place] [address] PCP - General Internal Medicine 02/25/13 documented as of this encounter
--- OUTSIDE RECORDS SUMMARY | 2024-11-10 12:23 | XMS_ITS | Encounter Summary ---
Author Organization [employer] Address [address] [place] [address] [facility] [place] [address] Care Team Providers Care Firearms Instructor Name Role Phone Alex Sheriff MD Primary Care Provider [phone]- [phone] Encounter Details Date Type Department Care Team (Late Contact Info) Description 10/05/2022 Orders Only [facility] MED & PEDS [address] [place] [address] Alex Sheriff MD [address] [place] [address] Chronic migraine without aura with status migrainosus, [...] Description 11/17/2024 11:30 AM EDT Office Visit [facility] MED & PEDS [address] [place] [address] Alex Sheriff MD [address] [place] [address] documented as of this encounter Visit Diagnoses Diagnosis Chronic migraine without aura with status migrainosus, not intractable- Primary documented in this encounter Care Teams Firearms Instructor Relationship Specialty Start Date End Date Alex Sheriff MD [address] [place] [address] PCP - General Internal Medicine 02/25/13 documented as of this encounter
--- OUTSIDE RECORDS SUMMARY | 2024-11-10 12:23 | XMS_ITS | Encounter Summary ---
Author Organization [employer] Address [address] [facility] [address] 7[address] [place] [address] Care Team Providers Care Strategy Planning Consultant Name Role Phone Alex Sheriff MD Primary Care Provider [phone] Encounter Details Date Type Department Care Team (Late st Contact Info) Description 10/06/2024 Orders Only [facility] MED & PEDS [address] [place], [place] [id number] Provider, MD Ariella Social History Tobacco Use [...] Upcoming Encounters Date Type Department Care Team ([facility] Contact Info) Description 11/17/2024 11:30 AM EDT Office Visit [facility] MED & PEDS [address] [place] [address] Alex Sheriff MD 505 [place] [address] documented as of this encounter Procedures Procedure [...] AM EDT Narrative 11/02/2024 6:10 PM EDT [facility] [address] [place] [address] Mammography Report Signed Patient: Tank Khan MR#: [id number] : 1975 Acct:[id number] Age/Sex: 49 / F ADM Date: 10/29/24 Loc: HO.MAMMO Attending Dr: Alex Sheriff MD Ordering Physician: Alex Sheriff MD Results: 1 Negative Date of Service: 10/29/24 Follow Up: 1 Year From Orig inal Mammogram Procedure(s): MM tomosynthesis screening BI Accession Number(s): [id number] cc: Alex Sheriff MD Reason For Exam: [...] 11/02/24 1807 DD/ 1145 TD/TT: 10/29/24 1210 Material Specialist: Procedure Note Donotuseinterpreter, Image - 11/02/2024 [facility] [address] [place] [address] [place] [address] Mammography Report Signed Patient: Tank Khan MR#: [id number] : 1975Acct:[id number] Age/Sex: 49 / FADM Date: 10/29/24 Loc: HO.MAMMO Attending Dr: Alex Sheriff MD Ordering Physician: Alex Sheriff MDResults: 1 Negative Date of Service: 10/29/24Follow Up: 1 Year From Orig inal Mammogram Procedure(s): MM tomosynthesis screening BI Accession Number(s): [id number] cc: Alex Sheriff MD Reason For Exam: [...] 11/02/24 1807 DD/ 1145 TD/TT: 10/29/24 1210 Material Specialist: us Alex ULLOAG BI PROCEDURES Final Res [...] documented as of this encounter Care Teams Strategy Planning Consultant Relationship Specialty Start Date End Date Alex Sheriff MD [address] [place] [address] PCP - General Internal Medicine 02/25/13 documented as of this encounter
--- OUTSIDE RECORDS SUMMARY | 2024-11-10 12:23 | XMS_ITS | Encounter Summary ---
Author Organization [employer] Address 75 [facility] 7 [place] [address] Care Team Providers Care Road Crew Member Name Role Phone Alex Sheriff MD Primary Care Provider [phone] Reason for Visit * Reason Onset Date Comments Referral 07/08/2024 Encounter Details Date Type Department Care Team ([facility] st Contact Info) Description 07/08/2024 Telephone [facility] MEDICINE [address] [place] [address] Alex Sheriff MD [address] [place] [address] Referral Social History Tobacco Use Types Packs/Day [...] regarding referral request. Pt was seen by [facility] ED on 07/07 for uterine bleeding. They [...] EDT Tc from pt requesting referral for [facility] regarding Abnormal uterine bleeding. Pt was triage. See encounter 07/07. documented in this encounter Plan of Treatment Upcoming Encounters Date Type Department Care Team (Late st Contact Info) Description 11/17/2024 11:30 AM EDT Office Visit [facility] MED & PEDS [address] [place] [address] Alex Sheriff MD [address] [place] [address] documented as of this encounter Visit Diagnoses Not on filedocumented in this encounter Additional Health Concerns Assessment Noted Time PHQ-9 Depression Total Score: 6 04/24/19 25 1:43 PM EST documented as of this encounter Care Teams Road Crew Member Relationship Specialty Start Date End Date Alex Sheriff MD [address] [place] [address] PCP - General Internal Medicine 02/25/13 documented as of this encounter
== END 2024-11-10 10:40 | disposition home or self-care (01) ==
LOC: HO.HWS 10:12
PROVIDERS: PCP Internal Medicine; Visit Provider Obstetrics & Gynecology
DX: Z32.02 Encounter for pregnancy test, result negative (principal); Z30.432 Encounter for removal of intrauterine contraceptive device
CPT/HCPCS: 58301

== ENCOUNTER 2024-11-10 10:42 | Outpatient (REF) | payer OTHER, SELFPAY ==
--- NOTE | ~2024-11-10 | US_ITS ---
CLINICAL HISTORY: N83.299 - Other ovarian cyst, unspecified side Ultrasound of the female pelvis Comparison: US/SR - US PELVIS TRANSABDOMINAL AND TRANSVAGINAL - 07/21/24 12:44 EDT Technique: Grayscale ultrasound with assistance of color Doppler. Transabdominal scanning performed for overall anatomy. Transvaginal scanning performed for better anatomic delineation. Findings: Anteverted uterus measures 8.9 x 4.6 x 5.5 cm. Mildly heterogeneous myometrium, intramural fibroid in the left posterior fundus 1.2 x 0.9 x 1.5 cm, previously 1.7 x 1.1 x 1.4 cm. Endometrium is not well seen but appears unremarkable, homogeneously hyperechoic, 7 mm in thickness. Unremarkable cervix, nabothian cyst noted. Normal right ovary, 2.5 x 1.4 x 1.6 cm. No abnormal vascular flow. Normal left ovary, 3.4 x 2.4 x 2.1 cm. 1.6 cm follicle noted. No abnormal vascular flow. Small free fluid in the posterior cul-de-sac. Impression: 1. Small uterine fibroid. 2. Small free fluid in the pelvis, most likely physiologic. This document has been electronically signed by: Wendy Nevarez MD on 11/11/2024 10:44:41
== END 2024-11-10 10:43 | disposition home or self-care (01) ==
LOC: HO.US 10:42
PROVIDERS: PCP Internal Medicine; Visit Provider Obstetrics & Gynecology
DX: Z30.432 Encounter for removal of intrauterine contraceptive device (principal); Z98.51 Tubal ligation status; Z32.02 Encounter for pregnancy test, result negative; N83.299 Other ovarian cyst, unspecified side
CPT/HCPCS: 58301; 76830; 76856; 81025

== ENCOUNTER → 2024-11-10 10:43 | Outpatient (BNV) | payer OTHER, SELFPAY | PROVIDERS: PCP Internal Medicine; Visit Provider Radiology Diagnostic Radiology | DX: D25.1 Intramural leiomyoma of uterus (principal) | CPT/HCPCS: 76830; 76856 ==

== ENCOUNTER 2024-11-16 10:33 | Outpatient (REF) | payer OTHER, SELFPAY ==
--- OUTSIDE RECORDS SUMMARY | 2024-11-16 11:51 | XMS_ITS | Encounter Summary ---
Author Organization [email or web address] Address 75 [facility] 7t [place] [address] Care Team Providers Care Cigarette Making Examiner Name Role Phone Alex Sheriff MD Primary Care Provider [phone] Encounter Details Date Type Department Care Team ([facility] st Contact Info) Description 09/20/2023 Orders Only [facility] MED & PEDS [address] [place], [place] [phone] Alex Sheriff MD [address] [place] [address] Social History Tobacco Use Types Packs/Day Years [...] [facility] MED & PED[facility] [address] [place] [address] Alex Sheriff MD [address] [place] [address] documented as of this encounter Visit Diagnoses Not on filedocumented in this encounter Care Teams Cigarette Making Examiner Relationship Specialty Start Date End Date Alex Sheriff MD [address] [place] [address] PCP - General Internal Medicine 02/25/13 documented as of this encounter
--- OUTSIDE RECORDS SUMMARY | 2024-11-16 11:51 | XMS_ITS | Clinical Summary ---
Author Organization [facility] Address [address] [place] [address], [place] [address] Care Team Providers Care Cleaning Supervisor Name Role Phone Alex Sheriff MD Primary Care Provider +1- [phone] Allergies Active Allergy Reactions Criticality Noted Date Comments Morphine And Codeine 04/14/2020 Medications lisinopril (PRINIVIL,ZESTR IL) 40 MG tabletIndicatio ns:Hypertension Take 1 tablet by mouth 1 (one) time each day Active dilTIAZem (TIAZAC) 300 MG 24 hr capsuleIndicati ons:Hypertensio n Take 300 mg by mouth 1 (one) time each day Active butalbital-acet aminophen-caffe ine-codeine (FIORICET WITH CODEINE) 13-971-86-30 MG per capsuleIndicati ons:Hypertensio n Take 1 [...] age to complete this topic Insurance [address] [place] [id number] [facility] ([id number]) DONNA EGAN [phone] [facility] ([id number]) DONNA EGAN [phone] Care Teams Cleaning Supervisor Relationship Specialty Start Date End Date Alex Sheriff MD PCP - General 02/29/20
--- OUTSIDE RECORDS SUMMARY | 2024-11-16 11:52 | XMS_ITS | Encounter Summary ---
Author Organization [employer] Address 75 [facility] 7 [place] [address] Care Team Providers Care Upholsterer Assembly Line Name Role Phone Alex Sheriff MD Primary Care Provider [phone] Reason for Visit * Reason Onset Date Comments Hospital Follow-up 08/07/2024 Encounter Details Date Type Department Care Team ([facility] st Contact Info) Description 08/07/2024 Telephone [facility] MEDICINE [address] [place] [address] Alex Sheriff MD [address] [place] [address] Hospital Follow-up Social History Tobacco Use Types [...] from pt requesting a HDF appt. Hospital: [facility] Date of admission: 08/02/24 Discharge date: 08/05/24 Diagnosed: tere documented in this encounter Plan of Treatment Upcoming Encounters Date Type Department Care Team (Late st Contact Info) Description 11/17/2024 11:30 AM EDT Office Visit [facility] MED & PEDS [address] [place] [address] Alex Sheriff MD [address] [place] [address] documented as of this encounter Visit Diagnoses Not on filedocumented in this encounter Additional Health Concerns Assessment Noted Time PHQ-9 Depression Total Score: 6 04/24/19 1:43 PM EST documented as of this encounter Care Teams Upholsterer Assembly Line Relationship Specialty Start Date End Date Alex Sheriff MD [address] [place] [address] PCP - General Internal Medicine 02/25/13 documented as of this encounter
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
--- OUTSIDE RECORDS SUMMARY | 2024-11-16 11:52 | XMS_ITS | Encounter Summary ---
Author Organization [employer] Address [address] [place] [address] [facility] [place] [address] Care Team Providers Care Weaving Professor Name Role Phone Alex Sheriff MD Primary Care Provider +1- [phone] Encounter Details Date Type Department Care Team ([facility] Contact Info) Description 07/13/2022 Abstract [facility] MED & PEDS [address] [place] [address] Alex Sheriff MD [address] [place] [address] Social History Tobacco Use Types Packs/Day Years [...] Upcoming Encounters Date Type Department Care Team ([facility] Contact Info) Description 11/17/2024 11:30 AM EDT Office Visit [facility] MED & PEDS [address] [place] [address] Alex Sheriff MD [address] [place] [address] documented as of this encounter Visit Diagnoses Not on filedocumented in this encounter Care Teams Weaving Professor Relationship Specialty Start Date End Date Alex Sheriff MD [address] [place] [address] PCP - General Internal Medicine 02/25/13 documented as of this encounter
--- OUTSIDE RECORDS SUMMARY | 2024-11-16 11:52 | XMS_ITS | Encounter Summary ---
Author Organization [employer] Address [address] [place] [address] 7 [place] [address] Care Team Providers Care Rn Charge Name Role Phone Alex Sheriff MD Primary Care Provider [phone]- [phone] Encounter Details Date Type Department Care Team (Late Contact Info) Description 05/14/2022 Orders Only [facility] [address] [place], [place] [phone] Matilde Norwood LPN Social History Tobacco Use [...] AM EDT Office Visit [facility] [address] [place], [place] [phone] Alex Sheriff MD [address] [place] [address] documented as of this encounter Procedures Procedure [...] 1:35 PM EDT 08/07/2022 2:30 PM EDT [facility] - 08/08/2022 6:12 PM EDT ----- ------- Name: Tank Khan Age/Sex: 47/F : 1975 Unit#: [id number] Attend Dr: Matteo Littlejohn MD Re08/07/22 Status: [facility] Location: [facility] Disch: ----- ------- SPEC : [id number] RECD: 08/07/22 STATUS: TERELL GALEANA NUM: [id number] YESI: 08/07/22-[address] [facility] [address]: Matteo Littlejohn MD ENTERED: 08/07/22-142 SP TYPE: Surgical OTHR DR: Alex Sheriff MD ORDERED: GO Diagnosis Right ureteral stone: Calculous material. Gross examination only. Sent for chemical analysis. Please see laboratory portion of the EMR for outside report from [facility]. Clinical History Pre-Op Dx: Calculus of kidney Post-Op Dx: Right ureteral stone Material Received Right ureteral stone Gross Description Received fresh labeled right ureteral stone is a 0.45 cm in greatest dimension hard, david calculus which is forwarded for chemical analysis. No soft tissue is identified. Gross description only. CEDS Copies To: Matteo Littlejohn MD [address] [place], [place] [address]А[address] [place] [address] [email or web address] Alex Sheriff MD [address] [place] [address] ----- ------- Signed (signature on file) Sterling White MD 08/08/22 8357 ----- ------- END OF REPORT [facility] External Provider LAB BLO OD ORDERABLES Final Result Performing Organization Address [facility] de Phone Number [facility] [address] [place] [phone] * HCG, Qualitative, Urine (08/07/2022 10:30 AM EDT) Urine NEGATIVE NEGATIVE [facility] Comment:This test was develo ped to detect early . Falsenegative results may occur after the 5th - 7th week ofpregnancy when using this test method. If clinicallyindicated, consider a serum hCG. 08/07/2022 10:3 0 AM EDT 08/07/2022 10:50 AM EDT [facility] External Provider LAB URI NE ORDERABLES Final Result Performing Organization Address [facility] de Phone Number [facility] [address] [place] [address] [phone] * hCG, Total, Quantitative (07/31/2022 7:47 PM EDT) HCG Quantitative <2 mIU/mL [facility] Comment:Weeks post LMP Appro ximate hCG(Last Menstrual Period) Range (mIU/ml)3 - 4 weeks 9 - 1304 - 5 weeks 75 - 2,6005 - 6 weeks 850 - 20,8006 - 7 weeks 4000 - 100,2007 - 12 weeks 11,500 - 289,34027 - 16 weeks 18,300 - 137,44720 - 29 weeks (2nd trimester) 1,400 - 53,26357 - 41 weeks (3rd trimester) 940 - 60,000The Moralez B- hCG assay is used for the early detection ofpregnancy; it cannot be used to diagnose any conditionunrelated to . If a B-hCG level is not supportedby the clinical evidence, results should be confirmed by analternative method (qualitative urine hCG, for example). 07/31/2022 7:47 PM EDT 07/31/2022 7:51 PM EDT Narrative [facility] - 07/31/2022 8:21 PM EDT ([facility]) [facility] External Provider LAB BLO OD ORDERABLES Final Result Performing Organization Address [facility]/ZIP Co de Phone Number [facility] [address] [place] [phone] * Lipase (07/31/2022 2:29 PM EDT) Lipase 22 8 - 78 U/L [facility] 07/31/2022 2:29 PM EDT 07/31/2022 2:35 PM EDT [facility] External Provider LAB BLO OD ORDERABLES Final Result Performing Organization Address [facility]/ZIP Co de Phone Number [facility] [address] [place] [address] [phone] * Magnesium (07/31/2022 2:29 PM EDT) Magnesium 2.2 1.6 - 2.6 mg/dL [facility] 07/31/2022 2:29 PM EDT 07/31/2022 2:35 PM EDT us [facility] External Provider LAB BLO OD ORDERABLES Final Result [facility] [address] [place] [address] [phone] * Basic Metabolic Panel (07/31/2022 2:29 PM EDT) Sodium 141 135 - 145 mmol/L [facility] Potassium 4.4 3.3 - 5.1 mmol/L [facility] Chloride 108 96 - 108 mmol/L [facility] Carbon Dioxide 25 22 - 29 mmol/L [facility] Anion Gap 12 12 - 20 [facility] Urea Nitrogen (BUN) 10 9 - 16 mg/dL [facility] Creatinine, Serum 0.74 0.5 - 1.4 mg/dL [facility] Creatinine Clr Calc Pharmacy 98.6 [facility] Comment:Provided height and weight: 157.48 cm,89.3 kg.eGFR (calculated from the MDRD study equation) and eCrCl(calculated from the Cockcroft-Gault equation) are based ondifferent parameters and may not yield comparable results.If eCrCl result is absurd, please check patient'sheight/weight. Estimated Glomerular Filt Rate >60 [facility] Comment:NOTE: For -Am erican individuals, multiply the result by 1.210.Chronic Kidney Disease: Estimated GFR < 60 mL/min/1.52f9Ecszbv Kidney Disease: Estimated GFR < 15 mL/min/1.73m2 Glucose 104 60 - 115 mg/dL [facility] Calcium 9.8 8.4 - 10.2 mg/dL [facility] 07/31/2022 2:29 PM EDT 07/31/2022 2:35 PM EDT [facility] External Provider LAB BLO OD ORDERABLES Final Result Performing Organization Address [facility] Co de Phone Number [facility] [address] [place] [address] [phone] * Hepatic Function Panel (07/31/2022 2:29 PM EDT) Bilirubin, Total 0.5 0.0 - 1.0 mg/dL [facility] Bilirubin, Direct 0.1 0.0 - 0.5 mg/dL [facility] Aspartate Amino Transferase 22 5 - 31 U/L [facility] Alanine Aminotransferase 24 0 - 31 U/L [facility] Total Protein 7.5 6.5 - 8.0 g/dL [facility] Albumin Level 4.3 3.5 - 5.0 g/dL [facility] Alkaline Phosphatase 69 39 - 117 U/L [facility] 07/31/2022 2:29 PM EDT 07/31/2022 2:35 PM EDT [facility] External Provider LAB BLO OD ORDERABLES Final Result Performing Organization Address [facility] de Phone Number [facility] [address] [place] [phone] * (ABNORMAL) Complete Blood Count Manual Diff (07/31/2022 2:29 PM EDT) White Blood Count 10.0 4.8 - 10.8 X10*3/uL [facility] Red Blood Count 4.89 4.20 - 5.50 X10*6/uL [facility] Hemoglobin 13.5 12.0 - 16.0 g/dl [facility] Hematocrit 41.4 37.0 - 47.0 % [facility] Mean Corpuscular Volume 84.7 80.0 - 98.0 fL [facility] Mean Corpuscular Hemoglobin 27.6 27.0 - 33.0 pg [facility] Mean Corpuscular HGB Conc 32.6 31.0 - 35.0 g/dl [facility] Red Cell Distribution Width 14.4 11.0 - 16.0 % [facility] Platelet Count 322 160 - 400 X10*3/uL [facility] Mean Platelet Volume 9.4 9.4 - 12.3 fL [facility] NRBC Pct Auto 0.0 0.0 - 0.2 /100WBC [facility] NRBC Abs Auto 0.000 0.0 - 0.012 X10*3/uL [facility] Neutrophils % Manual 58 45 - 73 % [facility] Band Neutrophils Percent 1(L) 3 - 5 % [facility] Lymphocytes Percent Manual 30 20 - 40 % [facility] Monocytes Percent Manual 6 2 - 11 % [facility] EOSINOPHILS % MANUAL 5(H) 0 - 4 % [facility] NEUTROPHILS ABSOLUTE MANUAL 5.9 2.0 - 8.3 X10*3/uL [facility] LYMPHOCYTES ABSOLUTE MANUAL 3.0 1.2 - 4.9 X10*3/uL [facility] MONOCYTES ABSOLUTE MANUAL 0.6 0.1 - 1.2 X10*3/uL [facility] EOSINOPHILS ABSOLUTE MANUAL 0.5(H) 0.0 - 0.4 X10*3/uL [facility] Platelet Estimate NORMAL NORMAL [facility] Platelet Morphology Comment NORMAL [facility] RBC Morphology NOTED [facility] Ovalocytes 1+ (5-14) /OIF [facility] Acanthocytes 2+ (3-5) /F [facility] 07/31/2022 2:29 PM EDT 07/31/2022 2:35 PM EDT us [facility] External Provider LAB BLO OD ORDERABLES Final Result [facility] [address] [place] [address] [phone] * (ABNORMAL) Urinalysis, Complete, with Reflex to Culture (07/31/2022 2:29 PM EDT) Color Urine Yellow [facility] Appearance Urine Clear [facility] PH 6.5 5.0 - 9.0 [facility] Glucose Urine UA Negative Negative mg/dL [facility] Urine Blood Moderate (2+)(A) Negative [facility] Specific Archie - Urine <=1.005 1.005 - 1.025 [facility] Urine Protein Trace Neg-Trace mg/dL [facility] Urine Ketones Negative Negative mg/dL [facility] Nitrite Urine Negative Negative [facility] Leukocyte Esterase Urine Trace(A) Negative [facility] RBC Urine 3-5(A) 0 - 2 /HPF [facility] Urine WBC 0-5 0 - 5 /HPF [facility] Urine Squamous Epithelial Cell 3-5 0 - 2 /HPF [facility] Urine Bacteria None Seen None Seen [facility] Hyaline Casts, Urine 0-2 0 - 2 /LPF [facility] 07/31/2022 2:29 PM EDT 07/31/2022 2:35 PM EDT Narrative [facility] - 07/31/2022 3:14 PM EDT [id number], Clean Catch [facility] External Provider LAB URI NE ORDERABLES Final Result [facility] [address] [place] [phone] * Lactic Acid (07/16/2022 10:07 AM EDT) Lactic Acid 1.5 0.5 - 2.0 mmol/L [facility] 07/16/2022 10:0 7 AM EDT 07/16/2022 10:12 AM EDT [facility] External Provider LAB BLO OD ORDERABLES Final Result Performing Organization Address City/[facility]/ZIP Co de Phone Number [facility] [address] [place], [place] [phone] * (ABNORMAL) Urinalysis, Complete, with Reflex to Culture (07/16/2022 9:49 AM EDT) Color Urine Yellow [facility] Appearance Urine Cloudy [facility] PH 6.0 5.0 - 9.0 [facility] Glucose Urine UA Negative Negative mg/dL [facility] Urine Blood Large (3+)(A) Negative [facility] Specific Archie - Urine 1.015 1.005 - 1.025 [facility] Urine Protein 300 (3+)(A) Neg-Trace mg/dL [facility] Urine Ketones Negative Negative mg/dL [facility] Nitrite Urine Negative Negative [facility] Leukocyte Esterase Urine Large (3+)(A) Negative [facility] RBC Urine 3-5(A) 0 - 2 /HPF [facility] Urine WBC >50(A) 0 - 5 /HPF [facility] Urine Squamous Epithelial Cell 0-2 0 - 2 /HPF [facility] Urine Bacteria 4+ None Seen [facility] Hyaline Casts, Urine 3-5 0 - 2 /LPF [facility] 07/16/2022 9:49 AM EDT 07/16/2022 9:52 AM EDT Narrative [facility] - 07/16/2022 10:06 AM EDT [id number], Clean Catch [facility] External Provider LAB URI NE ORDERABLES Final Result Performing Organization Address [facility]/ZIP Co de Phone Number [facility] [address] [place], [place] [phone] * Magnesium (07/16/2022 7:42 AM EDT) Magnesium 1.8 1.6 - 2.6 mg/dL [facility] 07/16/2022 7:42 AM EDT 07/16/2022 7:45 AM EDT [facility] External Provider LAB BLO OD ORDERABLES Final Result [facility] [address] [place] [address] [phone] * (ABNORMAL) Basic Metabolic Panel (07/16/2022 7:42 AM EDT) Sodium 137 135 - 145 mmol/L [facility] Potassium 4.4 3.3 - 5.1 mmol/L [facility] Comment:Slight Hemolysis Chloride 106 96 - 108 mmol/L [facility] Carbon Dioxide 19(L) 22 - 29 mmol/L [facility] Anion Gap 16 12 - 20 [facility] Urea Nitrogen (BUN) 11 9 - 16 mg/dL [facility] Creatinine, Serum 0.80 0.5 - 1.4 mg/dL [facility] Creatinine Clr Calc Pharmacy 91.5 [facility] Comment:Provided height and weight: 157.48 cm,89.811 kg.eGFR (calculated from the MDRD study equation) and eCrCl(calculated from the Cockcroft-Gault equation) are based ondifferent parameters and may not yield comparable results.If eCrCl result is absurd, please check patient'sheight/weight. Estimated Glomerular Filt Rate >60 [facility] Comment:NOTE: For -Am erican individuals, multiply the result by 1.210.Chronic Kidney Disease: Estimated GFR < 60 mL/min/1.51a8Dnjkiv Kidney Disease: Estimated GFR < 15 mL/min/1.73m2 Glucose 138(H) 60 - 115 mg/dL [facility] Calcium 9.4 8.4 - 10.2 mg/dL [facility] 07/16/2022 7:42 AM EDT 07/16/2022 7:45 AM EDT [facility] External Provider LAB BLO OD ORDERABLES Final Result Performing Organization Address [facility] de Phone Number [facility] [address] [place] [phone] * Hepatic Function Panel (07/16/2022 7:42 AM EDT) [facility] Signature Bilirubin, Total 0.4 0.0 - 1.0 mg/dL [facility] Bilirubin, Direct 0.1 0.0 - 0.5 mg/dL [facility] Comment:Slight Hemolysis Aspartate Amino Transferase 21 5 - 31 U/L [facility] Comment:Slight Hemolysis Alanine Aminotransferase 22 0 - 31 U/L [facility] Total Protein 7.3 6.5 - 8.0 g/dL [facility] Albumin Level 4.2 3.5 - 5.0 g/dL [facility] Alkaline Phosphatase 64 39 - 117 U/L [facility] 07/16/2022 7:42 AM EDT 07/16/2022 7:45 AM EDT [facility] External Provider LAB BLO OD ORDERABLES Final Result Performing Organization Address [facility] de Phone Number [facility] [address] [place] [phone] * (ABNORMAL) CBC auto differential (07/16/2022 7:42 AM EDT) White Blood Count 15.8(H) 4.8 - 10.8 X10*3/uL [facility] Red Blood Count 4.63 4.20 - 5.50 X10*6/uL [facility] Hemoglobin 12.9 12.0 - 16.0 g/dl [facility] Hematocrit 38.4 37.0 - 47.0 % [facility] Mean Corpuscular Volume 82.9 80.0 - 98.0 fL [facility] Mean Corpuscular Hemoglobin 27.9 27.0 - 33.0 pg [facility] Mean Corpuscular HGB Conc 33.6 31.0 - 35.0 g/dl [facility] Red Cell Distribution Width 14.4 11.0 - 16.0 % [facility] Platelet Count 308 160 - 400 X10*3/uL [facility] Mean Platelet Volume 9.6 9.4 - 12.3 fL [facility] Neutrophils Percent Auto 76.3(H) 45 - 73 % [facility] Imm Gran Pct Auto 0.4 0.0 - 0.4 % [facility] Lymphocytes Percent Auto 15.5(L) 20 - 40 % [facility] Monocytes Percent Auto 7.2 2 - 11 % [facility] Eosinophils Percent Auto 0.1 0 - 4 % [facility] Basophils Percent Auto 0.5 0 - 2 % [facility] NRBC Pct Auto 0.0 0.0 - 0.2 /100WBC [facility] Neutrophils Absolute Auto 12.1(H) 2.0 - 8.3 x10*3/uL [facility] Imm Gran Abs Auto 0.06(H) 0.00 - 0.03 X10*3/uL [facility] Lymphocytes Absolute Auto 2.5 1.2 - 4.9 X10*3/uL [facility] Monocytes Absolute Auto 1.1 0.1 - 1.2 X10*3/uL [facility] Eosinophils Absolute Auto 0.0 0.0 - 0.4 X10*3/uL [facility] Basophils Absolute Auto 0.1 0.0 - 0.2 X10*3/uL [facility] NRBC Abs Auto 0.000 0.0 - 0.012 X10*3/uL [facility] 07/16/2022 7:42 AM EDT 07/16/2022 7:45 AM EDT us [facility] External Provider LAB BLO OD ORDERABLES Final Result [facility] [address] [place] [phone] documented in this encounter Visit Diagnoses Not on filedocumented in this encounter Care Teams Rn Charge Relationship Specialty Start Date End Date Alex Sheriff MD [address] [place] [phone] PCP - General Internal Medicine 02/25/13 documented as of this encounter
--- OUTSIDE RECORDS SUMMARY | 2024-11-16 11:52 | XMS_ITS | Encounter Summary ---
Author Organization [employer] Address [address] [place] [address] [facility] [place] [address] Care Team Providers Care Mercerizer Name Role Phone Alex Sheriff MD Primary Care Provider [phone] Encounter Details Date Type Department Care Team (Late Contact Info) Description 03/28/[address] [facility] [address] [place] [address] Alex Sheriff MD [address] [place] [address] Social History Tobacco Use Types Packs/Day Years [...] [facility] [address] [place] [address] Alex Sheriff MD [address] [place] [address] documented as of this encounter Visit Diagnoses Not on filedocumented in this encounter Care Teams Mercerizer Relationship Specialty Start Date End Date Alex Sheriff MD [address] [place] [phone] PCP - General Internal Medicine 02/25/13 documented as of this encounter
--- OUTSIDE RECORDS SUMMARY | 2024-11-16 11:52 | XMS_ITS | Encounter Summary ---
Author Organization [employer] Address [address] [facility] [address] [place] [address] Care Team Providers Care Conventional Mortgage Underwriter Name Role Phone Alex Sheriff MD Primary Care Provider [phone] Encounter Details Date Type Department Care Team (Late st Contact Info) Description 10/06/2024 Orders Only [facility] [address] [place], [place] [phone] Provider, MD Ariella Social History Tobacco Use [...] Upcoming Encounters Date Type Department Care Team ([facility] Contact Info) Description 11/17/2024 11:30 AM EDT Office Visit [facility] [address] [place] [address] Alex Sheriff MD [address] [place] [address] documented as of this encounter Procedures Procedure [...] AM EDT Narrative 11/02/2024 6:10 PM EDT [facility] [address] [place] [address] Mammography Report Signed Patient: Tank Khan MR#: [id number] : 1975 Acct:[id number] Age/Sex: 49 / F ADM Date: 10/29/24 Loc: HO.MAMMO Attending Dr: Alex Sheriff MD Ordering Physician: Alex Sheriff MD Results: 1 Negative Date of Service: 10/29/24 Follow Up: 1 Year From Orig inal Mammogram Procedure(s): MM tomosynthesis screening BI Accession Number(s): [id number] cc: Alex Sheriff MD Reason For Exam: [...] 11/02/24 1807 DD/ 1145 TD/TT: 10/29/24 1210 Field Cane Scaler: Procedure Note Donotuseinterpreter, Image - 11/02/2024 [facility] [address] [place] [address] [place] [address] Mammography Report Signed Patient: Tank Khan MR#: [id number] : 1975Acct:[id number] Age/Sex: 49 / FADM Date: 10/29/24 Loc: HO.MAMMO Attending Dr: Alex Sheriff MD Ordering Physician: Alex Sheriff MDResults: 1 Negative Date of Service: 10/29/24Follow Up: 1 Year From Orig inal Mammogram Procedure(s): MM tomosynthesis screening BI Accession Number(s): [id number] cc: Alex Sheriff MD Reason For Exam: [...] 11/02/24 1807 DD/ 1145 TD/TT: 10/29/24 1210 Field Cane Scaler: us Alex ULLOAG BI PROCEDURES Final Res [...] documented as of this encounter Care Teams Conventional Mortgage Underwriter Relationship Specialty Start Date End Date Alex Sheriff MD [address] [place] [phone] PCP - General Internal Medicine 02/25/13 documented as of this encounter
--- OUTSIDE RECORDS SUMMARY | 2024-11-16 11:52 | XMS_ITS | Encounter Summary ---
Author Organization [employer] Address [address] [place] [address] [facility] [place] [address] Care Team Providers Care Income Tax Adjuster Name Role Phone Alex Sheriff MD Primary Care Provider [phone] Encounter Details Date Type Department Care Team (Late Contact Info) Description 10/05/2022 Orders Only [facility] [address] [place] [address] Alex Sheriff MD [address] [place] [address] Chronic migraine without aura with status migrainosus, [...] 11:30 AM EDT Office Visit [facility] [address] [place] [address] Alex Sheriff MD [address] [place] [address] documented as of this encounter Visit Diagnoses Diagnosis Chronic migraine without aura with status migrainosus, not intractable- Primary documented in this encounter Care Teams Income Tax Adjuster Relationship Specialty Start Date End Date Alex Sheriff MD [address] [place] [address] PCP - General Internal Medicine 02/25/13 documented as of this encounter
--- OUTSIDE RECORDS SUMMARY | 2024-11-16 11:52 | XMS_ITS | Encounter Summary ---
Author Organization [employer] Address [address] [facility] 7t [place] [address] Care Team Providers Care Research Assistant Professor Name Role Phone Alex Sheriff MD Primary Care Provider [phone] Reason for Visit * Reason Onset Date Comments Nurse Triage 05/20/2023 Encounter Details Date Type Department Care Team ([facility] st Contact Info) Description 05/20/2023 Telephone [facility] [address] [place] [address] Alex Sheriff MD [address] [place], [place] [phone] Nurse Triage Social History Tobacco Use Types [...] [facility] [address] [place] [address] Alex Sheriff MD [address] [place] [address] documented as of this encounter Visit Diagnoses Not on filedocumented in this encounter Care Teams Research Assistant Professor Relationship Specialty Start Date End Date Alex Sheriff MD [address] [place] [address] PCP - General Internal Medicine 02/25/13 documented as of this encounter
--- OUTSIDE RECORDS SUMMARY | 2024-11-16 11:52 | XMS_ITS | Clinical Summary ---
Author Organization 175 [facility] Address 175 [place] [address] Phone Care Team Providers Care Cash Applications Associate Name Role Phone Alex Sheriff MD Primary Care Provider [phone] Medications diclofenac (Voltaren Arthritis Pain) 1 % topical gel Apply 4 g topically 2 (two) times a day. 240 g 1 12/06/19 Active Encounters Date Type Department Care Team Description 10/06/2024 9:15 AM EDT Consult Orthopedic Surgery - [address] [address] Kobi Saavedra, DPM Neuritis (Primary Dx); Bunion of left foot from Last 3 Months Surgical History Surgery Date Site/Laterality Comments TUBAL LIGATION PROCEDURE: HISTORICAL TUBAL LIGATION Medical History Medical History Date Comments HTN (hypertension) 03/14/2022 DX:HTN (hyper tension) Paroxysmal supraventricular tachycardia ([facility] V24) 03/14/2022 DX:Paroxysmal supraventricul ar [...] AM EST Office Visit Orthopedic Surgery - [place] [address] [address] Kobi Saavedra, DPM [address] [address] Health Maintenance Due Date Last Done Comments Breast Cancer Screening 1975 Colorectal Cancer Screening: Colonoscopy 1975 Hepatitis B Vaccines (1 of 3 - 19+ 3-dose series) 05/10/1995 Medicare Annual Wellness Visit 03/19/2023 Social Influencers [...] or Tdap) 03/30/2032 03/30/2022, 01/22/2012, 12/25/2010 RSV Immunization Adult Patients (1 - 1-dose 75+ series) 05/10/2051 Pneumococcal [...] R esult from Last 3 Months Insurance [employer] MEDICARE Member Subscriber Plan / Payer (Ef fective 2013-Present) Name:TANK SANTIAGO Relation to Subscriber:Self Name:Tank Santiago Payer ID:[id number] Group ID:[id number] Type:Not on file Address: [place] [address] [address] [id number] Care Teams Cash Applications Associate Relationship Specialty Start Date End Date Alex Sheriff MD [address] [place], [place] PCP - General 03/14/22
--- OUTSIDE RECORDS SUMMARY | 2024-11-16 11:52 | XMS_ITS | Encounter Summary ---
Author Organization [employer] Address 75 [facility] 7 [place] [address] Care Team Providers Care Dopeman Name Role Phone Alex Sheriff MD Primary Care Provider [phone] Reason for Visit * Reason Onset Date Comments Referral 07/08/2024 Encounter Details Date Type Department Care Team ([facility] st Contact Info) Description 07/08/2024 Telephone [facility] MED[facility]INE [address] [place] [address] Alex Sheriff MD [address] [place] [address] Referral Social History Tobacco Use Types Packs/Day [...] regarding referral request. Pt was seen by [facility] on 07/07 for uterine bleeding. They [...] EDT Tc from pt requesting referral for PIPELINE DISPATCHER [facility] regarding Abnormal uterine bleeding. Pt was triage. See encounter 07/07. documented in this encounter Plan of Treatment Upcoming Encounters Date Type Department Care Team (Late st Contact Info) Description 11/17/2024 11:30 AM EDT Office Visit [facility] MED & PEDS [address] [place] [address] Alex Sheriff MD [address] [place] [address] documented as of this encounter Visit Diagnoses Not on filedocumented in this encounter Additional Health Concerns Assessment Noted Time PHQ-9 Depression Total Score: 6 04/24/19 25 1:43 PM EST documented as of this encounter Care Teams Dopeman Relationship Specialty Start Date End Date Alex Sheriff MD [address] [place] [address] PCP - General Internal Medicine 02/25/13 documented as of this encounter
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
--- OUTSIDE RECORDS SUMMARY | 2024-11-16 11:52 | XMS_ITS | Encounter Summary ---
Author Organization [employer] Address 75 [facility] 7 [place] [address] Care Team Providers Care Comic Book Artist Name Role Phone Alex Sheriff MD Primary Care Provider [phone] Reason for Visit * Reason Comments Med Refill Encounter Details Date Type Department Care Team ([facility] st Contact Info) Description 12/23/2023 Refill [facility] & PEDS [address] [place], [place] [phone] Alex Sheriff MD [address] [place] [address] Cerumen debris on tympanic membrane of left [...] 11/17/2024 11:30 AM EDT Office Visit [facility] MED & PEDS [address] [place] [address] Alex Sheriff MD [address] [place] [address] documented as of this encounter Visit Diagnoses Diagnosis Cerumen debris on tympanic membrane of left ear documented in this encounter Care Teams Comic Book Artist Relationship Specialty Start Date End Date Alex Sheriff MD [address] [place] [address] PCP - General Internal Medicine 02/25/13 documented as of this encounter
--- OUTSIDE RECORDS SUMMARY | 2024-11-16 11:52 | XMS_ITS | Encounter Summary ---
Author Organization [employer] Address 75 [facility] 7 [place] [address] Care Team Providers Care Cook Morning Name Role Phone Alex Sheriff MD Primary Care Provider [phone] Reason for Visit * Reason Onset Date Comments chart prep 11/16/2024 Encounter Details Date Type Department Care Team ([facility] Contact Info) Description 11/16/2024 Telephone [facility]EDS [address] [place] [address] Alex Sheriff MD [address] [place] [address] chart prep Social History Tobacco Use Types Packs/Day Years [...] encounter Miscellaneous Notes * Telephone Encounter - Karen Bal [place] - 11/16/2024 11:40 AM EDT Chart Prep Labs: done Images: done Referrals: not applicable Vaccines due: Covid, Flu, Hep B, and Hep A Screenings: colonoscopy Overdue care gaps: Disability screen documented in this encounter Plan of Treatment Upcoming Encounters Date Type Department Care Team ([facility] st Contact Info) Description 11/17/2024 11:30 AM EDT Office Visit [facility]EDS [address] [place] [address] Alex Sheriff MD [address] [place] [address] documented as of this encounter Visit Diagnoses Not on filedocumented in this encounter Additional Health Concerns Assessment Noted Time PHQ-9 Depression Total Score: 6 04/24/19 25 1:43 PM EST documented as of this encounter Care Teams Cook Morning Relationship Specialty Start Date End Date Alex Sheriff MD [address] [place] [address] PCP - General Internal Medicine 02/25/13 documented as of this encounter
--- OUTSIDE RECORDS SUMMARY | 2024-11-16 11:52 | XMS_ITS | Encounter Summary ---
Author Organization [employer] Address [address] [place] [address] 7 [place] [address] Care Team Providers Care Tube Tester Name Role Phone Alex Sheriff MD Primary Care Provider [phone] Encounter Details Date Type Department Care Team (Late Contact Info) Description 09/14/2022 Orders Only [facility] MED & PEDS [address] [place] [address] Alex Sheriff MD [address] [place] [address] Chronic migraine without aura without status migrainosus, [...] Description 11/17/2024 11:30 AM EDT Office Visit [facility] MED & PEDS [address] [place] [address] Alex Sheriff MD [address] [place] [address] documented as of this encounter Visit Diagnoses Diagnosis Chronic migraine without aura without status migrainosus, not intractable- Primary documented in this encounter Care Teams Tube Tester Relationship Specialty Start Date End Date Alex Sheriff MD [address] [place] [phone] PCP - General Internal Medicine 02/25/13 documented as of this encounter
--- OUTSIDE RECORDS SUMMARY | 2024-11-16 11:52 | XMS_ITS | Encounter Summary ---
Author Organization [employer] Address [address] [facility] 7 [place] [address] Care Team Providers Care Custodial Worker Name Role Phone Alex Sheriff MD Primary Care Provider [phone] Reason for Visit * Reason Onset Date Comments Hospital Follow-up 12/23/2023 Encounter Details Date Type Department Care Team ([facility] st Contact Info) Description 12/23/2023 Telephone [facility] [address] [place] [address] Alex Sheriff MD [address] [place] [address] [id number] Hospital Follow-up Social History Tobacco Use Types [...] from pt requesting a HDF appt. Hospital: [facility] Date of admission: 12/18/2023 Discharge date: 12/22/2023 Diagnosed: Infection kidney *Send message to [place] Clinical Care Coordinators documented in this encounter Plan of Treatment Upcoming Encounters Date Type Department Care Team (Late st Contact Info) Description 11/17/2024 11:30 AM EDT Office Visit [facility] [address] [place] [address] Alex Sheriff MD [address] [place] [address] documented as of this encounter Visit Diagnoses Not on filedocumented in this encounter Care Teams Custodial Worker Relationship Specialty Start Date End Date Alex Sheriff MD [address] [place] [address] PCP - General Internal Medicine 02/25/13 documented as of this encounter
[2024-11-18 19:17] LABS: Class Alternaria alternata 0; Class Aspergillus fumigatus 0; Class Cat Dander 0; Class Cladosporium herbarum 0; Class Cockroach 0; Class Dermatophagoides farinae 0; Class Dog Dander 0; Class Mountain Cedar 0; Class Mouse Urine Protein 0; Class Oak 1; Class Timothy Grass 0; Class Walnut Tree 0; D002 - IgE D farinae <0.10 kU/L; E001 - IgE Cat Dander <0.10 kU/L; E005 - IgE Dog Dander <0.10 kU/L; G006 - IgE Timothy Grass <0.10 kU/L; I006-IgE Cockroach, German <0.10 kU/L; M002 - IgE Cladosporium herbar <0.10 kU/L; M003 - IgE Aspergillus fumigat <0.10 kU/L; M006 - IgE Alternaria alternat <0.10 kU/L; T006 - IgE Cedar, Mountain <0.10 kU/L; T007 - IgE Oak, White 0.54 kU/L; T010 - IgE Walnut <0.10 kU/L; T011 - IgE Maple Leaf Sycamore <0.10 kU/L
[2024-11-18 19:18] LABS: Class Bermuda Grass 0; Class Birch 3; Class Common Ragweed 0; Class Cottonwood 0; Class Derm. pterony 0; Class Elm 0; Class Maple Box Elder 0/1; Class Mugwort 0; Class Penicillium crysogenum 0; Class Rough Pigweed 0; Class Sheep Sorrel 0; Class Sycamore 0; Class White Ash 0; Class White Mulberry 0; T001 IgE Maple/Box Elder 0.18 kU/L; T008 IgE Elm, American <0.10 kU/L; T014 - IgE Cottonwood <0.10 kU/L; T015 - IgE Ash, White <0.10 kU/L; T070 - IgE White Mulberry <0.10 kU/L; W001 - IgE Ragweed, Short <0.10 kU/L; W006 - IgE Mugwort <0.10 kU/L; W014 IgE Pigweed, Common <0.10 kU/L; W018 IgE Sheep Sorrel <0.10 kU/L
== END 2024-11-16 10:34 | disposition home or self-care (01) ==
LOC: HO.LAB 10:33
PROVIDERS: PCP Internal Medicine; Visit Provider Student in an Organized Health Care Education/Training Program
DX: J30.89 Other allergic rhinitis (principal)
CPT/HCPCS: 36415; 82785; 86003

== ENCOUNTER 2024-11-18 13:02 | Outpatient (AMB) | payer OTHER, SELFPAY ==
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
--- OUTSIDE RECORDS SUMMARY | 2024-11-18 14:18 | XMS_ITS | Encounter Summary ---
Author Organization [employer] Address [address] [facility] 7t [place] [address] Care Team Providers Care Correctional Officer Chief Name Role Phone Alex Sheriff MD Primary Care Provider [phone] Encounter Details Date Type Department Care Team ([facility] st Contact Info) Description 09/20/2023 Orders Only [facility] [address] [place], [place] [phone] Alex Sheriff MD [address] [place] [address] Social History Tobacco Use Types Packs/Day Years [...] on filedocumented in this encounter Care Teams Correctional Officer Chief Relationship Specialty Start Date End Date Alex Sheriff MD [address] [place] [address] PCP - General Internal Medicine 02/25/13 documented as of this encounter
--- OUTSIDE RECORDS SUMMARY | 2024-11-18 14:18 | XMS_ITS | Clinical Summary ---
Author Organization [facility] Address [address] [place] [address] Care Team Providers Care Daytime Babysitter Name Role Phone Alex Sheriff MD Primary Care Provider [phone] Allergies Active Allergy Reactions Criticality Noted Date Comments Morphine And Codeine 04/14/2020 Medications lisinopril (PRINIVIL,ZESTR IL) 40 MG tabletIndicatio ns:Hypertension Take 1 tablet by mouth 1 (one) time each day Active dilTIAZem (TIAZAC) 300 MG 24 hr capsuleIndicati ons:Hypertensio n Take 300 mg by mouth 1 (one) time each day Active butalbital-acet aminophen-caffe ine-codeine (FIORICET WITH CODEINE) 46-846-88-30 MG per capsuleIndicati ons:Hypertensio n Take 1 [...] age to complete this topic Insurance [address] [place] [id number] [facility] ([id number]) DONNA EGAN [id number] [facility] ([id number]) DONNA EGAN [id number] Care Teams Daytime Babysitter Relationship Specialty Start Date End Date Alex Sheriff MD PCP - General 02/29/20
--- OUTSIDE RECORDS SUMMARY | 2024-11-18 14:19 | XMS_ITS | Encounter Summary ---
Author Organization [employer] Address [address] [place] [address] 7 [place] [address] Care Team Providers Care Metal Bending Machine Operator Name Role Phone Alex Sheriff MD Primary Care Provider [phone] Encounter Details Date Type Department Care Team (Late st Contact Info) Description 09/14/2022 Orders Only [facility] P[facility]S [address] [place] [address] Alex Sheriff MD [address] [place] [address] Chronic migraine without aura without status migrainosus, [...] Primary documented in this encounter Care Teams Metal Bending Machine Operator Relationship Specialty Start Date End Date Alex Sheriff MD [address] [place] [address] PCP - General Internal Medicine 02/25/13 documented as of this encounter
--- OUTSIDE RECORDS SUMMARY | 2024-11-18 14:19 | XMS_ITS | Encounter Summary ---
Author Organization [employer] Address [address] [facility] [address] [place] [address] Care Team Providers Care Mitochondrial Disorders Counselor Name Role Phone Alex Sheriff MD Primary Care Provider [phone] Encounter Details Date Type Department Care Team (Late st Contact Info) Description 05/14/2022 Orders Only [facility] CHC MED & PEDS [address] [place], [place] [phone] Matilde Norwood LPN Social History Tobacco Use [...] 1:35 PM EDT 08/07/2022 2:30 PM EDT [facility] LABS - 08/08/2022 6:12 PM EDT ----- ------- Name: Tank Khan Age/Sex: 47/F : 1975 Unit#: [id number] Attend Dr: Matteo Littlejohn MD Re08/07/22 Status: [facility] Location: [facility] Disch: ----- ------- SPEC : [id number] RECD: 08/07/22 [facility] NUM: [id number] YESI: 08/07/22 [facility] DR: Matteo Littlejohn MD ENTERED: 08/07/22-529 SP TYPE: Surgical OTHR DR: Alex Sheriff MD ORDERED: GO Diagnosis Right ureteral stone: Calculous material. Gross examination only. Sent for chemical analysis. Please see laboratory portion of the EMR for outside report from [employer]. Clinical History Pre-Op Dx: Calculus of kidney Post-Op Dx: Right ureteral stone Material Received Right ureteral stone Gross Description Received fresh labeled right ureteral stone is a 0.45 cm in greatest dimension hard, david calculus which is forwarded for chemical analysis. No soft tissue is identified. Gross description only. CEDS Copies To: Matteo Littlejohn MD [address] [place] [address] DrА[address] [place] [address] [email or web address] Alex Sheriff MD [address] [place] [address] ----- ------- Signed (signature on file) Sterling White MD 08/08/221811 ----- ------- END OF REPORT [facility] External Provider LAB BLO OD ORDERABLES Final Result Performing Organization Address [facility]/ZIP Co de Phone Number [facility] [address] [place] [address] [phone] * HCG, Qualitative, Urine (08/07/2022 10:30 AM EDT) Pathologist [facility] Urine NEGATIVE NEGATIVE [facility] Comment:This test was develo ped to detect early . Falsenegative results may occur after the 5th - 7th week ofpregnancy when using this test method. If clinicallyindicated, consider a serum hCG. 08/07/2022 10:3 0 AM EDT 08/07/2022 10:50 AM EDT [facility] External Provider LAB URI NE ORDERABLES Final Result Performing Organization Address [facility]/ZIP Co de Phone Number [facility] [address] [place] [address] [phone] * hCG, Total, Quantitative (07/31/2022 7:47 PM EDT) HCG Quantitative <2 mIU/mL [facility] Comment:Weeks post LMP Appro ximate hCG(Last Menstrual Period) Range (mIU/ml)3 - 4 weeks 9 - 1304 - 5 weeks 75 - 2,6005 - 6 weeks 850 - 20,8006 - 7 weeks 4000 - 100,2007 - 12 weeks 11,500 - 289,52052 - 16 weeks 18,300 - 137,25496 - 29 weeks (2nd trimester) 1,400 - 53,47021 - 41 weeks (3rd trimester) 940 - 60,000The Moralez B- hCG assay is used for the early detection ofpregnancy; it cannot be used to diagnose any conditionunrelated to . If a B-hCG level is not supportedby the clinical evidence, results should be confirmed by analternative method (qualitative urine hCG, for example). 07/31/2022 7:47 PM EDT 07/31/2022 7:51 PM EDT Narrative [facility] - 07/31/2022 8:21 PM EDT (PST) [facility] External Provider LAB BLO OD ORDERABLES Final Result Performing Organization Address [facility] Co de Phone Number [facility] [address] [place] [phone] * Lipase (07/31/2022 2:29 PM EDT) Lipase 22 8 - 78 U/L [facility] 07/31/2022 2:29 PM EDT 07/31/2022 2:35 PM EDT [facility] External Provider LAB BLO OD ORDERABLES Final Result Performing Organization Address [facility] Co de Phone Number [facility] [address] [place] [phone] * Magnesium (07/31/2022 2:29 PM EDT) Magnesium 2.2 1.6 - 2.6 mg/dL [facility] 07/31/2022 2:29 PM EDT 07/31/2022 2:35 PM EDT [facility] External Provider LAB BLO OD ORDERABLES Final Result Performing Organization Address City/[facility]/ZIP Co de Phone Number [facility] [address] [place] [address] [phone] * Basic Metabolic Panel (07/31/2022 2:29 PM EDT) Sodium 141 135 - 145 mmol/L [facility] Potassium 4.4 3.3 - 5.1 mmol/L [facility] Chloride 108 96 - 108 mmol/L [facility] Carbon Dioxide 25 22 - 29 mmol/L [facility] Anion Gap 12 12 - 20 [facility] Urea Nitrogen (BUN) 10 9 - 16 mg/dL [facility] Creatinine, Serum 0.74 0.5 - 1.4 mg/dL [facility] Creatinine Clr Calc Pharmacy 98.6 [facility] Comment:Provided height and weight: 157.48 cm,89.3 kg.eGFR (calculated from the MDRD study equation) and eCrCl(calculated from the Cockcroft-Gault equation) are based ondifferent parameters and may not yield comparable results.If eCrCl result is absurd, please check patient'sheight/weight. Estimated Glomerular Filt Rate >60 [facility] Comment:NOTE: For -Am erican individuals, multiply the result by 1.210.Chronic Kidney Disease: Estimated GFR < 60 mL/min/1.64y3Ahqzbr Kidney Disease: Estimated GFR < 15 mL/min/1.73m2 Glucose 104 60 - 115 mg/dL [facility] Calcium 9.8 8.4 - 10.2 mg/dL [facility] 07/31/2022 2:29 PM EDT 07/31/2022 2:35 PM EDT [facility] External Provider LAB BLO OD ORDERABLES Final Result Performing Organization Address [facility]/ZIP Co de Phone Number [facility] [address] [place] [address] [phone] * Hepatic Function Panel (07/31/2022 2:29 PM EDT) Pathologist [facility] Bilirubin, Total 0.5 0.0 - 1.0 mg/dL [facility] Bilirubin, Direct 0.1 0.0 - 0.5 mg/dL [facility] Aspartate Amino Transferase 22 5 - 31 U/L [facility] Alanine Aminotransferase 24 0 - 31 U/L [facility] Total Protein 7.5 6.5 - 8.0 g/dL [facility] Albumin Level 4.3 3.5 - 5.0 g/dL [facility] Alkaline Phosphatase 69 39 - 117 U/L [facility] 07/31/2022 2:29 PM EDT 07/31/2022 2:35 PM EDT [facility] External Provider LAB BLO OD ORDERABLES Final Result Performing Organization Address City/State/[facility] Co de Phone Number [facility] [address] [place] [phone] * (ABNORMAL) Complete Blood Count Manual Diff (07/31/2022 2:29 PM EDT) [facility] White Blood Count 10.0 4.8 - 10.8 X10*3/uL [facility] Red Blood Count 4.89 4.20 - 5.50 X10*6/uL [facility] Hemoglobin 13.5 12.0 - 16.0 g/dl [facility] Hematocrit 41.4 37.0 - 47.0 % [facility] Mean Corpuscular Volume 84.7 80.0 - 98.0 fL [facility] Mean Corpuscular Hemoglobin 27.6 27.0 - 33.0 pg [facility] Mean Corpuscular HGB Conc 32.6 31.0 - 35.0 g/dl [facility] Red Cell Distribution Width 14.4 11.0 - 16.0 % [facility] Platelet Count 322 160 - 400 X10*3/uL [facility] Mean Platelet Volume 9.4 9.4 - 12.3 fL [facility] NRBC Pct Auto 0.0 0.0 - 0.2 /100WBC [facility] NRBC Abs Auto 0.000 0.0 - 0.012 X10*3/uL [facility] Neutrophils % Manual 58 45 - 73 % [facility] Band Neutrophils Percent 1(L) 3 - 5 % [facility] Lymphocytes Percent Manual 30 20 - 40 % [facility] Monocytes Percent Manual 6 2 - 11 % [facility] EOSINOPHILS % MANUAL 5(H) 0 - 4 % [facility] NEUTROPHILS ABSOLUTE MANUAL 5.9 2.0 - 8.3 X10*3/uL [facility] LYMPHOCYTES ABSOLUTE MANUAL 3.0 1.2 - 4.9 X10*3/uL [facility] MONOCYTES ABSOLUTE MANUAL 0.6 0.1 - 1.2 X10*3/uL [facility] EOSINOPHILS ABSOLUTE MANUAL 0.5(H) 0.0 - 0.4 X10*3/uL [facility] Platelet Estimate NORMAL NORMAL [facility] Platelet Morphology Comment NORMAL [facility] RBC Morphology NOTED [facility] Ovalocytes 1+ (5-14) /OIF [facility] Acanthocytes 2+ (3-5) /[facility] 07/31/2022 2:29 PM EDT 07/31/2022 2:35 PM EDT us [facility] External Provider LAB BLO OD ORDERABLES Final Result [facility] [address] [place] [phone] * (ABNORMAL) Urinalysis, Complete, with Reflex to Culture (07/31/2022 2:29 PM EDT) Color Urine Yellow [facility] Appearance Urine Clear [facility] PH 6.5 5.0 - 9.0 [facility] Glucose Urine UA Negative Negative mg/dL [facility] Urine Blood Moderate (2+)(A) Negative [facility] Specific [place] - Urine <=1.005 1.005 - 1.025 [facility] Urine Protein Trace Neg-Trace mg/dL [facility] Urine Ketones Negative Negative mg/dL [facility] Nitrite Urine Negative Negative [facility] Leukocyte Esterase Urine Trace(A) Negative [facility] RBC Urine 3-5(A) 0 - 2 /HPF [facility] Urine WBC 0-5 0 - 5 /HPF [facility] Urine Squamous Epithelial Cell 3-5 0 - 2 /HPF [facility] Urine Bacteria None Seen None Seen [facility] Hyaline Casts, Urine 0-2 0 - 2 /LPF [facility] 07/31/2022 2:29 PM EDT 07/31/2022 2:35 PM EDT Narrative [facility] - 07/31/2022 3:14 PM EDT [id number], Clean Catch [facility] External Provider LAB URI NE ORDERABLES Final Result Performing Organization Address City/[facility]/ZIP Co de Phone Number [facility] [address] [place] [phone] * Lactic Acid (07/16/2022 10:07 AM EDT) Lactic Acid 1.5 0.5 - 2.0 mmol/L [facility] 07/16/2022 10:0 7 AM EDT 07/16/2022 10:12 AM EDT [facility] External Provider LAB BLO OD ORDERABLES Final Result Performing Organization Address [facility] Co de Phone Number [facility] [address] [place] [phone] * (ABNORMAL) Urinalysis, Complete, with Reflex to Culture (07/16/2022 9:49 AM EDT) Color Urine Yellow [facility] Appearance Urine Cloudy [facility] PH 6.0 5.0 - 9.0 [facility] Glucose Urine UA Negative Negative mg/dL [facility] Urine Blood Large (3+)(A) Negative [facility] Specific [place] - Urine 1.015 1.005 - 1.025 [facility] Urine Protein 300 (3+)(A) Neg-Trace mg/dL [facility] Urine Ketones Negative Negative mg/dL [facility] Nitrite Urine Negative Negative [facility] Leukocyte Esterase Urine Large (3+)(A) Negative [facility] RBC Urine 3-5(A) 0 - 2 /HPF [facility] Urine WBC >50(A) 0 - 5 /HPF [facility] Urine Squamous Epithelial Cell 0-2 0 - 2 /HPF [facility] Urine Bacteria 4+ None Seen [facility] Hyaline Casts, Urine 3-5 0 - 2 /LPF [facility] 07/16/2022 9:49 AM EDT 07/16/2022 9:52 AM EDT Narrative [facility] - 07/16/2022 10:06 AM EDT [id number], Clean Catch [facility] External Provider LAB URI NE ORDERABLES Final Result Performing Organization Address City/[facility] Co de Phone Number [facility] [address] [place] [phone] * Magnesium (07/16/2022 7:42 AM EDT) Magnesium 1.8 1.6 - 2.6 mg/dL [facility] 07/16/2022 7:42 AM EDT 07/16/2022 7:45 AM EDT [facility] External Provider LAB BLO OD ORDERABLES Final Result Performing Organization Address [facility] Co de Phone Number [facility] [address] [place] [phone] * (ABNORMAL) Basic Metabolic Panel (07/16/2022 7:42 AM EDT) Sodium 137 135 - 145 mmol/L [facility] Potassium 4.4 3.3 - 5.1 mmol/L [facility] Comment:Slight Hemolysis Chloride 106 96 - 108 mmol/L [facility] Carbon Dioxide 19(L) 22 - 29 mmol/L [facility] Anion Gap 16 12 - 20 [facility] Urea Nitrogen (BUN) 11 9 - 16 mg/dL [facility] Creatinine, Serum 0.80 0.5 - 1.4 mg/dL [facility] Creatinine Clr Calc Pharmacy 91.5 [facility] Comment:Provided height and weight: 157.48 cm,89.811 kg.eGFR (calculated from the MDRD study equation) and eCrCl(calculated from the Cockcroft-Gault equation) are based ondifferent parameters and may not yield comparable results.If eCrCl result is absurd, please check patient'sheight/weight. Estimated Glomerular Filt Rate >60 [facility] Comment:NOTE: For -Am erican individuals, multiply the result by 1.210.Chronic Kidney Disease: Estimated GFR < 60 mL/min/1.87y8Isrwqn Kidney Disease: Estimated GFR < 15 mL/min/1.73m2 Glucose 138(H) 60 - 115 mg/dL [facility] Calcium 9.4 8.4 - 10.2 mg/dL [facility] 07/16/2022 7:42 AM EDT 07/16/2022 7:45 AM EDT us [facility] External Provider LAB BLO OD ORDERABLES Final Result [facility] [address] [place] [phone] * Hepatic Function Panel (07/16/2022 7:42 AM EDT) Pathologist [facility] Bilirubin, Total 0.4 0.0 - 1.0 mg/dL [facility] Bilirubin, Direct 0.1 0.0 - 0.5 mg/dL [facility] Comment:Slight Hemolysis Aspartate Amino Transferase 21 5 - 31 U/L [facility] Comment:Slight Hemolysis Alanine Aminotransferase 22 0 - 31 U/L [facility] Total Protein 7.3 6.5 - 8.0 g/dL [facility] Albumin Level 4.2 3.5 - 5.0 g/dL [facility] Alkaline Phosphatase 64 39 - 117 U/L [facility] 07/16/2022 7:42 AM EDT 07/16/2022 7:45 AM EDT us [facility] External Provider LAB BLO OD ORDERABLES Final Result [facility] [address] [place] [phone] * (ABNORMAL) CBC auto differential (07/16/2022 7:42 AM EDT) Pathologist [facility] White Blood Count 15.8(H) 4.8 - 10.8 X10*3/uL [facility] Red Blood Count 4.63 4.20 - 5.50 X10*6/uL [facility] Hemoglobin 12.9 12.0 - 16.0 g/dl [facility] Hematocrit 38.4 37.0 - 47.0 % [facility] Mean Corpuscular Volume 82.9 80.0 - 98.0 fL [facility] Mean Corpuscular Hemoglobin 27.9 27.0 - 33.0 pg [facility] Mean Corpuscular HGB Conc 33.6 31.0 - 35.0 g/dl [facility] Red Cell Distribution Width 14.4 11.0 - 16.0 % [facility] Platelet Count 308 160 - 400 X10*3/uL [facility] Mean Platelet Volume 9.6 9.4 - 12.3 fL [facility] Neutrophils Percent Auto 76.3(H) 45 - 73 % [facility] Imm Gran Pct Auto 0.4 0.0 - 0.4 % [facility] Lymphocytes Percent Auto 15.5(L) 20 - 40 % [facility] Monocytes Percent Auto 7.2 2 - 11 % [facility] Eosinophils Percent Auto 0.1 0 - 4 % [facility] Basophils Percent Auto 0.5 0 - 2 % [facility] NRBC Pct Auto 0.0 0.0 - 0.2 /100WBC [facility] Neutrophils Absolute Auto 12.1(H) 2.0 - 8.3 x10*3/uL [facility] Imm Gran Abs Auto 0.06(H) 0.00 - 0.03 X10*3/uL [facility] Lymphocytes Absolute Auto 2.5 1.2 - 4.9 X10*3/uL [facility] Monocytes Absolute Auto 1.1 0.1 - 1.2 X10*3/uL [facility] Eosinophils Absolute Auto 0.0 0.0 - 0.4 X10*3/uL [facility] Basophils Absolute Auto 0.1 0.0 - 0.2 X10*3/uL [facility] NRBC Abs Auto 0.000 0.0 - 0.012 X10*3/uL [facility] 07/16/2022 7:42 AM EDT 07/16/2022 7:45 AM EDT us [facility] External Provider LAB BLO OD ORDERABLES Final Result [facility] [address] [place] [phone] documented in this encounter Visit Diagnoses Not on filedocumented in this encounter Care Teams Mitochondrial Disorders Counselor Relationship Specialty Start Date End Date Alex Sheriff MD [address] [place] [phone] PCP - General Internal Medicine 02/25/13 documented as of this encounter
--- OUTSIDE RECORDS SUMMARY | 2024-11-18 14:19 | XMS_ITS | Encounter Summary ---
Author Organization [employer] Address [address] [place] [address] 7 [place] [address] Care Team Providers Care Mental Health Unit Lead Psychologist Name Role Phone Alex Sheriff MD Primary Care Provider [phone] Encounter Details Date Type Department Care Team (Late st Contact Info) Description 10/05/2022 Orders Only [facility] CH[facility] MED & PEDS [address] [place], [place] [phone] Alex Sheriff MD [address] [place], [place] [phone] Chronic migraine without aura with status migrainosus, [...] Primary documented in this encounter Care Teams Mental Health Unit Lead Psychologist Relationship Specialty Start Date End Date Alex Sheriff MD [address] [place] [address] PCP - General Internal Medicine 02/25/13 documented as of this encounter
--- OUTSIDE RECORDS SUMMARY | 2024-11-18 14:19 | XMS_ITS | Encounter Summary ---
Author Organization [employer] Address [address] [facility] 7 [place] [address] Care Team Providers Care Proposal Director Name Role Phone Alex Sheriff MD Primary Care Provider [phone] Reason for Visit * Reason Onset Date Comments chart prep 11/16/2024 Encounter Details Date Type Department Care Team ([facility] Contact Info) Description 11/16/2024 Telephone [facility] CH[facility] MED & PEDS [address] [place] [address] Alex Sheriff MD [address] [place] [address] chart prep Social History Tobacco Use Types [...] documented as of this encounter Care Teams Proposal Director Relationship Specialty Start Date End Date Alex Sheriff MD [address] [place] [phone] PCP - General Internal Medicine 02/25/13 documented as of this encounter
--- OUTSIDE RECORDS SUMMARY | 2024-11-18 14:19 | XMS_ITS | Encounter Summary ---
Author Organization [employer] Address [address] [place] [address] 7 [place] [address] Care Team Providers Care Eyeletter Name Role Phone Alex Sheriff MD Primary Care Provider [phone] Encounter Details Date Type Department Care Team (Late st Contact Info) Description 07/13/2022 Abstract [facility] CHC MED & PEDS [address] [place] [address] Alex Sheriff MD [address] [place] [address] Social History Tobacco Use Types Packs/Day Years [...] on filedocumented in this encounter Care Teams Eyeletter Relationship Specialty Start Date End Date Alex Sheriff MD [address] [place] [address] PCP - General Internal Medicine 02/25/13 documented as of this encounter
--- OUTSIDE RECORDS SUMMARY | 2024-11-18 14:19 | XMS_ITS | Clinical Summary ---
Author Organization [employer] Address [address] [facility] 7t [place] [address] Care Team Providers Care Licensed Audiologist Name Role Phone Alex Sheriff MD Primary Care Provider [phone]- [phone] Allergies Active Allergy Reactions Criticality Noted Date Comments Morphine Palpitations,Shortne s s of breath High 11/04/2020 Other Reaction(s): PAPLITATIONS, increased heart rate Other Reaction(s): Not available, PAPLITATIONS, increased heart rate Morphine And Codeine High 01/22/2012 Other reaction(s): heart rate fast Medications * This document contains information received from the source organization and may not represent a complete record from that organization. butalbital-aceta minophen-caffein e 50-325-40 MG tabletIndication s:Chronic migraine without aura without status migrainosus, not intractable Take 1 tablet by mouth every 6 (six) hours if needed for headaches. 20 tablet 023 Active Hypertonic Nasal Wash (Sinus Rinse Kit) pack Administer 1 packet into affected nostril(s) 3 times daily. Use with distilled water. 50 each 1 024 Active PARoxetine (Paxil) 10 MG tabletIndication s:Hot flushes, perimenopausal Take 1 tablet (10 mg) by mouth in the morning. 30 tablet 11 024 Active sucralfate (Carafate) 1 GM/10ML suspensionIndica tions:Other acute gastritis without hemorrhage BEFORE BREAKFAST, BEFORE LUNCH, BEFORE EVENING MEAL AND AT BEDTIME 120 mL 2 024 Active lisinopril 40 MG tablet take 1 tablet (40MG) by oral route every day 90 tablet 3 Active dilTIAZem ER (Tiazac) 300 MG 24 hr capsule Take 1 capsule (300 mg) by mouth Once per day. 90 capsule 3 Active omeprazole (PriLOSEC) [address] Wendi ns:Gastroesophag eal reflux disease without esophagitis TAKE 1 CAPSULE(20 MG) BY MOUTH BEFORE BREAKFAST. DO NOT CRUSH OR CHEW 90 capsule 3 Active fluticasone (Flonase) 50 MCG/ACT nasal sprayIndications :Nasal congestion Administer 1-2 sprays into each nostril Once per day. Shake gently. Before first use, prime pump. After use, clean tip and replace cap. 16 g 11 025 2025 Active mirtazapine (Remeron) 7.5 MG tablet TAKE 1 TABLET BY MOUTH EVERY DAY AT BEDTIME 90 tablet 3 Active ibuprofen 800 MG tabletIndication s:Breast pain, left,Pain in left cavanaugh TAKE 1 TABLET(800 MG) BY MOUTH THREE TIMES DAILY 90 tablet Active loratadine (Claritin) 10 MG tablet Take 1 tablet by mouth Once per day. Active cetirizine (ZyrTEC) 10 MG tablet TAKE 1 TABLET BY MOUTH 1 TO 2 TIMES DAILY NEEDED FOR ALLERGIES. DO NOT TAKE THIS IF YOU ARE TAKING DIPHENHYDRAMINE Active Diclofenac Sodium 1 % gel Apply 4 g topically 2 times daily. 025 2024 Active Ferretts 325 (106 Fe) MG tablet Take 1 tablet by mouth Once per day. Active metoprolol succinate XL (Toprol-XL) 100 MG 24 hr tabletIndication s:Primary hypertension Take 1 tablet (100 mg) by mouth Once per day. TAKE 1 TABLET(100 MG) BY MOUTH IN THE MORNING. DO NOT CRUSH OR CHEW 30 tablet 11 Active metoprolol succinate XL (Toprol-XL) 100 MG 24 hr tabletIndication s:Primary hypertension TAKE 1 TABLET(100 MG) BY MOUTH IN THE MORNING. DO NOT CRUSH OR CHEW 30 tablet 11 025 2024 Discontinued( Reorder (will not trigger notification to Pharmacy)) Active Problems Problem Noted Date Diagnosed Date [...] Encounters Date Type Department Care Team Description 11/17/2024 11:30 AM EDT Office Visit [facility] MED & PEDS [address] [place] [address] Alex Sheriff MD Vaginal bleeding (Primary Dx); Primary hypertension; Encounter for immunization; Class 2 obesity 11/17/2024 Travel 11/16/2024 Telephone [facility] MED & PEDS [address] [facility] [place] [address] Alex Sheriff MD chart prep 11/03/2024 Orders Only GENERIC EXTERNAL DATA DEPARTMENT Provider, Generic External Data 10/06/2024 Orders Only [facility] MED & PEDS [address] [place] [address] Provider, MD Ariella from Last 3 Months Immunizations Immunization Administration Dates Next Due Influenza injectable quadriv alent IIV4 with preservative 11/26/2018,11/17/2015 Influenza injectable quadriv alent preservative free 11/09/2022,02/06/2022,12/21/2020,2019,11/29/2016 Influenza, IIV3, injectable 02/06/2022,1 02/21/2020,11/26/2019,2018,11/29/2016,11/17/2015,12/25/2010 Influenza, Split (incl. hesham fied surface antigen) 03/19/2013 Influenza, seasonal, injecta ble, preservative free 11/17/2024,11/05/2023 Pneumococcal Conjugate PCV 20 03/28/2023 Tdap 03/30/2022,01/22/2012,12/25/2010 [...] Pulse 74 11/17/2024 11:27 AM EDT Temperature 36.5 C (97.7 F) 08/17/2024 10:27 AM EDT Respiratory Rate 19 11/17/2024 11:27 AM EDT Oxygen Saturation 97% 11/17/2024 11:27 AM EDT Inhaled Oxygen Concentration - - Weight 89.8 kg (198 lb) 11/17/2024 11:27 AM EDT Height 157.5 cm (5' 2 ) 11/17/2024 11:27 AM EDT Body Mass Index 36.21 11/17/2024 11:27 AM EDT Plan of Treatment Health Maintenance Due Date Last Done Comments CT Colonography 1975 Colonoscopy 1975 Colorectal Cancer Screening 1975 FIT DNA/Cologuard 1975 FIT 1975 FOBT 1975 Sigmoidoscopy 1975 Family Planning (PISQ) 05/10/1991 Hepatitis A Vaccines (1 of 2 - Risk 2-dose series) 05/10/1995 Hepatitis B Vaccines (1 of 3 - 19+ 3-dose series) 05/10/1995 COVID-19 Vaccine ( season) 2024 06/26/2021, 05/28/2020 Alcohol/Substance Use Screening 04/23/2025 04/23/2024 Depression Screening 04/23/2025 04/23/2024, 04/24/19 25 SDOH Screening 04/23/2025 04/23/2024 Disability Screening 11/17/2025 11/17/2024 Tobacco Screening 11/17/2025 11/17/2024 Zoster Vaccines (1 of 2) 2026 Lipid [...] Completed 04/23/2024 Hepatitis C Screening Completed 04/23/2024 Influenza Vaccine Completed 11/17/2024, , 11/09/2022, Additional history exists HIB Vaccines Aged Out [...] AM EDT Narrative 11/11/2024 10:46 AM EDT [place] [address] Ultrasound Report Signed Patient: Tank Khan MR#: [id number] : 1975 Acct:[id number] Age/Sex: 49 / F ADM Date: 11/10/24 Loc: HO.US Attending Dr: Chandler Uribe MD Ordering Physician: Chandler Uribe MD Date of Service: 11/10/24 Procedure(s): US pelvic and transvaginal Accession Number(s): [id number] cc: Alex Sheriff MD; Chandler Uribe MD [...] 11/11/24 1046 DD/ 1044 TD/TT: 11/11/24 1044 Ventilating Equipment Installer: Procedure Note Donotuseinterpreter, Image - 11/11/[address] [address] Ultrasound Report Signed Patient: Tank Khan MR#: [id number] : 1975Acct:[id number] Age/Sex: 49 / FADM Date: 11/10/24 Loc: HO.US Attending Dr: Chandler Uribe MD Ordering Physician: Chandler Uribe MD Date of Service: 11/10/24 Procedure(s): US pelvic and transvaginal Accession Number(s): [id number] cc: Alex Sheriff MD; Chandler Uribe MD [...] 11/11/24 1046 DD/ 1044 TD/TT: 11/11/24 1044 Ventilating Equipment Installer: [facility] External Provider IMG US PROCEDURES Final Result * Chlamydia/N. Gonorrhoeae RNA, TMA, Urogenitial (11/03/2024 10:45 AM EDT) CT PCR NOT DETECTED Not Detect. [facility] Comment:A not detected test result [...] psychologicalconsequences. NG PCR NOT DETECTED Not Detect. [facility] Comment:A not detected test result [...] 5 AM EDT 11/03/2024 4:15 PM EDT Generic External Data Provider LAB MICROBIOLOGY - GENERAL ORDERABLES Final Result [facility] [address] [place] [address] [phone] * BI Mammogram Screening Tomosynthesis Bilateral (10/29/2024 11:45 AM EDT) Anatomical Region Laterality Modality Breast Bilateral Mammography 10/29/2024 11:4 5 AM EDT Narrative 11/02/2024 6:10 PM EDT [facility] [address] [place], [place] [address] Mammography Report Signed Patient: Tank Khan MR#: [id number] : 1975 Acct:[id number] Age/Sex: 49 / F ADM Date: 10/29/24 Loc: HO.MAMMO Attending Dr: Alex Sheriff MD Ordering Physician: Alex Sheriff MD Results: 1 Negative Date of Service: 10/29/24 Follow Up: 1 Year From [facility] Mammogram Procedure(s): MM tomosynthesis screening BI Accession Number(s): [id number] cc: Alex Sheriff MD Reason For Exam: [...] 11/02/24 1807 DD/ 1145 TD/TT: 10/29/24 1210 Ventilating Equipment Installer: Procedure Note Donotuseinterpreter, Image - 11/02/2024 [facility] [address] [place] [address] Mammography Report Signed Patient: Tank Khan MR#: [id number] : 1975Acct:[id number] Age/Sex: 49 / FADM Date: 10/29/24 Loc: HO.MAMMO Attending Dr: Alex Sheriff MD Ordering Physician: Alex Sheriff MDResults: 1 Negative Date of Service: 10/29/24Follow Up: 1 Year From Orig ina Mammogram Procedure(s): MM tomosynthesis screening BI Accession Number(s): [id number] cc: Alex Sheriff MD Reason For Exam: [...] DO Signed By: <Electronically signed by Penelope Johnson, in OV> 11/02/24 1807 DD/ 1145 TD/TT: 10/29/24 1210 Ventilating Equipment Installer: us Alex Sheriff MD IMG BI PROCEDURES [...] PM EST) Hepatitis C Antibody Nonreactive Nonreactive [facility] Comment:Antibodies to HCV no t detected; does not exclude early acuteHCV infection. Blood Venous blood specimen / Unknown 04/23/2024 1:51 PM EST 04/23/2024 5:34 PM EST Alex Sheriff MD LAB BLOOD ORDERABLES Final Result [facility] [address] [place] [phone] * HIV-1/2 Antigen and Antibodies, Fourth Generation, with Reflexes (04/23/2024 1:51 PM EST) HIV AB/AG Nonreactive Nonreactive [facility] Comment:HIV-1 p24 Ag and/or HIV-1/HIV-2 Ab not detected.A test result that is nonreactive does not exclude thepossibility of exposure to or infection with HIV-1 and/orHIV-2. Nonreactive results in this assay for individualswith prior exposure to HIV-1 and/or HIV-2 may be due toantigen and antibody levels that are below the limit ofdetection of this assay.The [employer] HIV Ag/Ab Combo assay result andsupplemental assay results should be interpreted inconjunction with the patient's clinical presentation,history and other laboratory results. If the results areinconsistent with clinical evidence, additional testing issuggested to confirm the result. Blood Venous blood specimen / Unknown 04/23/2024 1:51 PM EST 04/23/2024 5:34 PM EST us Alex Sheriff MD LAB BLOOD ORDERABLES Final Result [facility] [address] [place] [address] [phone] * HPV mRNA E6/E7 w/Reflex to HPV Genotypes 16, 18/45 (09/25/2022 2:23 PM EDT) HPV nRNA E6/E7 Not Detected Not Detected [facility] Comment:Methodology: Transcr iption-Mediated AmplificationThis assay detects E6/E7 viral messenger RNA (mRNA) from 14high-risk HPV types (16,18,31,33,35,39,45,51,52,56,58,59,66,68).Cervical sources are required for HPV testing.If a vaginal source from a patient who has had atotal hysterectomy with removal of cervix wassubmitted, please contact the testing laboratoryfor alternative testing options.For additional information, please refer tohttp://education.Cleo/faq/KVC023r4(This link if provided for information/educational purposes only.)THIS TEST WAS PERFORMED AT:[address] [place] [id number] THOMAS MD HPV mRNA E6/E7 [facility] HPV 16 RNA [facility] HPV 18/45 RNA [facility] 09/25/2022 2:23 PM EDT 09/27/2022 9:00 AM EDT us Nadiya Kumar CNM LAB CYTOLOGY ORDERABLES F inal Result [facility] [address] [place] [address] [phone] * Pap Smear (09/25/2022 2:23 PM EDT) 09/25/2022 2:23 PM EDT 09/27/2022 9:00 AM EDT Narrative [facility] - 10/24/2022 2:24 PM EDT ----- ------- Name: Tank Santiago Age/Sex: 47/F : 1975 Unit#: [id number] Attend Dr: NADIYA KUMAR CNM Re09/25/22 Status: [facility] Location: [facility] Disch: ----- ------- SPEC : [id number] RECD: 09/27/22 STATUS: TERELL GALEANA NUM: [id number] SHAHRIAR: 09/25/22-[address]: NADIYA KUMAR CNM ENTERED: 09/27/22-4962 SP TYPE: Pap Smr OT DR: ORDERED: Pap Smear, PAP path review Interpretation General Category: Negative for intraepithelial lesion/malignancy. Adequacy: Endocervical component present. Interpretation: Reactive cellular changes. HPV mRNA E6/E7: Not Detected This assay detects E6/E7 viral messenger RNA (mRNA) from 14 high-risk HPV types (16, 18, 31, 33, 35, 39, 45, 51, 52, 56, 58, 59, 66, 68) HPV testing performed by [employer], [place], [place]. See reference laboratory portion of the EMR for entire report. Clinical Information LMP:Unknown date Previous PAP test:Unknown date/findings Other history: ASCUS, HPV neg 01/2019 Material Received ThinPrep-Cervical ----- ------- Signed (signature on file) Sterling White MD 10/24/22 1424 ----- ------- END OF REPORT Nadiya Kumar [facility] LAB CYTOLOGY ORDERABLES F inal Result [facility] [address] [place] [phone] * (ABNORMAL) LIPID PANEL, STANDARD (07/24/2021 [...] LDL-C. Minh MATAMOROS et al. POONAM. 2013;310(19): 8625-2293 (http://education.TutorGroup.Appointuit/faq/AJL326) Non-HDL Cholesterol 178(H) <130 mg/dL (calc) [facility] Comment: For patients with diabetes plus 1 major ASCVD risk factor, treating to a non-HDL-C goal of <100 mg/dL (LDL-C of <70 mg/dL) is considered a therapeutic option. Triglycerides 172(H) <150 mg/dL [facility] 07/24/2021 10:3 5 AM EDT Steph Rebolledo MD LAB BLOOD ORDERABLES Final Result [facility] [address] from Last 3 Months or Most Recently Relevant to Health Maintenance Insurance [facility] ONE CARE < 65 [place] [id number] CCA ONE CARE < 65 CCA ONE CARE < 65 Care Teams Licensed Audiologist Relationship Specialty Start Date End Date Alex Sheriff MD [address] [place] [phone] PCP - General Internal Medicine 02/25/13
--- OUTSIDE RECORDS SUMMARY | 2024-11-18 14:19 | XMS_ITS | Encounter Summary ---
Author Organization [employer] Address [address] [facility] 7 [place] [address] Care Team Providers Care Data Steward Name Role Phone Alex Sheriff MD Primary Care Provider [phone] Reason for Visit * Reason Onset Date Comments Medication Question 08/05/2023 Encounter Details Date Type Department Care Team ([facility] Contact Info) Description 08/05/2023 Telephone [facility] MEDICINE [address] [place] [address] Alex Sheriff MD [address] [place], [place] [phone] Medication Question Social History Tobacco Use Types [...] a picnic yesterday and bent over to pickle solution maker something and 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 Pt [...] Wash out Pollen * Nasal Washes - Cqoy-Kv-Lkvo Instructions * Antihistamine Medicines for Hay Fever [...] encounter documented in this encounter Care Teams Data Steward Relationship Specialty Start Date End Date Alex Sheriff MD [address] [place] [phone] PCP - General Internal Medicine 02/25/13 documented as of this encounter
--- OUTSIDE RECORDS SUMMARY | 2024-11-18 14:19 | XMS_ITS | Clinical Summary ---
Author Organization [address] [facility] Address [address] [place] [address] Phone Care Team Providers Care Coal Carrier Name Role Phone Alex Sheriff MD Primary Care Provider [phone] Medications diclofenac (Voltaren Arthritis Pain) 1 % topical gel Apply 4 g topically 2 (two) times a day. 240 g 1 12/06/19 Active Encounters Date Type Department Care Team Description 10/06/2024 9:15 AM EDT Consult Orthopedic Surgery - [place] [address] [address] Kobi Saavedra, DPM Neuritis (Primary Dx); Bunion of left foot from Last 3 Months Surgical History Surgery Date Site/Laterality Comments TUBAL LIGATION PROCEDURE: HISTORICAL TUBAL LIGATION Medical History Medical History Date Comments HTN (hypertension) 03/14/2022 DX:HTN (hyper tension) Paroxysmal supraventricular tachycardia ([facility] V24) 03/14/2022 DX:Paroxysmal supraventricul ar tachycardia (HCC) [...] AM EST Office Visit Orthopedic Surgery - [place] [address] [address] Kobi Saavedra, DPM [address] [phone] Health Maintenance Due Date Last [...] ID:[id number] Group ID:[id number] Type:Not on file Address: [place] [address] [place] [phone] Care Teams Coal Carrier Relationship Specialty Start Date End Date Alex Sheriff MD [address] [place], [place] PCP - General 03/14/22
--- OUTSIDE RECORDS SUMMARY | 2024-11-18 14:19 | XMS_ITS | Encounter Summary ---
Author Organization [employer] Address [address] [facility] 7 [place] [address] Care Team Providers Care Medical Detail Representative Name Role Phone Alex Sheriff MD Primary Care Provider [phone] Reason for Visit * Reason Comments Med Refill Encounter Details Date Type Department Care Team ([facility] st Contact Info) Description 12/23/2023 Refill [facility] MED & PEDS [address] [place], [place] [phone] Alex Sheriff MD [address] [place] [address] Cerumen debris on tympanic membrane of left [...] ear documented in this encounter Care Teams Medical Detail Representative Relationship Specialty Start Date End Date Alex Sheriff MD [address] [place] [phone] PCP - General Internal Medicine 02/25/13 documented as of this encounter
--- OUTSIDE RECORDS SUMMARY | 2024-11-18 14:19 | XMS_ITS | Encounter Summary ---
Author Organization [employer] Address [address] [place] [address] 7 [place] [address] Care Team Providers Care Count Room Clerk Name Role Phone Alex Sheriff MD Primary Care Provider [phone] Encounter Details Date Type Department Care Team ([facility] st Contact Info) Description 03/28/[address] [facility] MED & PEDS [address] [place] [address] Alex Sheriff MD [address] [place] [address] Social History Tobacco Use Types Packs/Day Years [...] on filedocumented in this encounter Care Teams Count Room Clerk Relationship Specialty Start Date End Date Alex Sheriff MD [address] [place] [address] PCP - General Internal Medicine 02/25/13 documented as of this encounter
--- OUTSIDE RECORDS SUMMARY | 2024-11-18 14:19 | XMS_ITS | Encounter Summary ---
Author Organization [employer] Address [address] [facility] 7t [place] [address] Care Team Providers Care Insole Reinforcer Name Role Phone Alex Sheriff MD Primary Care Provider [phone] Encounter Details Date Type Department Care Team (Latest Contact Info) Description 11/17/2024 Travel Social History Tobacco Use Types Packs/Day [...] documented as of this encounter Care Teams Insole Reinforcer Relationship Specialty Start Date End Date Alex Sheriff MD [address] [place] [address] PCP - General Internal Medicine 02/25/13 documented as of this encounter
--- OUTSIDE RECORDS SUMMARY | 2024-11-18 14:19 | XMS_ITS | Encounter Summary ---
Author Organization [employer] Address [address] [facility] [address] 7[address] [place] [address] Care Team Providers Care Optical Instrument Assembly Supervisor Name Role Phone Alex Sheriff MD Primary Care Provider [phone] Encounter Details Date Type Department Care Team (Late st Contact Info) Description 10/06/2024 Orders Only [facility] MED & PEDS [address] [place], [place] [phone] Provider, MD Ariella Social History Tobacco Use [...] AM EDT Narrative 11/02/2024 6:10 PM EDT [facility] [address] [place] [address] Mammography Report Signed Patient: Tank Khan MR#: [id number] : 1975 Acct:[id number] Age/Sex: 49 / F ADM Date: 10/29/24 Loc: HO.MAMMO Attending Dr: Alex Sheriff MD Ordering Physician: Alex Sheriff MD Results: 1 Negative Date of Service: 10/29/24 Follow Up: 1 Year From Orig inal Mammogram Procedure(s): MM tomosynthesis screening BI Accession Number(s): [id number] cc: Alex Sheriff MD Reason For Exam: [...] 11/02/24 1807 DD/ 1145 TD/TT: 10/29/24 1210 Technical Sales Support Specialist: Procedure Note Donotuseinterpreter, Image - 11/02/2024 [facility] [address] [place] [address] Mammography Report Signed Patient: Tank Khan MR#: [id number] : 1975Acct:[id number] Age/Sex: 49 / FADM Date: 10/29/24 Loc: HO.MAMMO Attending Dr: Alex Sheriff MD Ordering Physician: Alex Sheriff MDResults: 1 Negative Date of Service: 10/29/24Follow Up: 1 Year From Orig inal Mammogram Procedure(s): MM tomosynthesis screening BI Accession Number(s): [id number] cc: Alex Sheriff MD Reason For Exam: [...] 11/02/24 1807 DD/ 1145 TD/TT: 10/29/24 1210 Technical Sales Support Specialist: us Alex ULLOAG BI PROCEDURES Final Res ult * XR Foot 3+ Views Left (10/06/2024 3:41 PM EDT) Anatomical Region Laterality Modality Lower Extremities, Foot Left Radiogra phic Imaging Historical Provider MD [place] XR PROCEDURES Final R esult documented in this encounter Visit Diagnoses Not on filedocumented in this encounter Additional Health Concerns Assessment Noted Time PHQ-9 Depression Total Score: 6 04/24/19 25 1:43 PM EST documented as of this encounter Care Teams Optical Instrument Assembly Supervisor Relationship Specialty Start Date End Date Alex Sheriff MD [address] [place] [phone] PCP - General Internal Medicine 02/25/13 documented as of this encounter
--- OUTSIDE RECORDS SUMMARY | 2024-11-18 14:19 | XMS_ITS | Encounter Summary ---
Author Organization [employer] Address [address] [facility] 7t [place] [address] Care Team Providers Care Recordist Name Role Phone Alex Sheriff MD Primary Care Provider [phone] Reason for Visit * Reason Onset Date Comments Nurse Triage 05/20/2023 Encounter Details Date Type Department Care Team ([facility] st Contact Info) Description 05/20/2023 Telephone [facility] MEDICINE [address] [place] [address] Alex Sheriff MD [address] [place], [place] [phone] Nurse Triage Social History Tobacco Use Types [...] on filedocumented in this encounter Care Teams Recordist Relationship Specialty Start Date End Date Alex Sheriff MD [address] [place] [phone] PCP - General Internal Medicine 02/25/13 documented as of this encounter
--- OUTSIDE RECORDS SUMMARY | 2024-11-18 14:19 | XMS_ITS | Encounter Summary ---
Author Organization [employer] Address [address] [facility] 7 [place] [address] Care Team Providers Care Toll Testboard Worker Name Role Phone Alex Sheriff MD Primary Care Provider [phone] Reason for Visit * Reason Onset Date Comments Hospital Follow-up 08/07/2024 Encounter Details Date Type Department Care Team ([facility] st Contact Info) Description 08/07/2024 Telephone [facility] MEDICINE [address] [place] [address] Alex Sheriff MD [address] [place] [address] Hospital Follow-up Social History Tobacco Use Types [...] from pt requesting a HDF appt. Hospital: [facility] Date of admission: 08/02/24 Discharge date: 08/05/24 Diagnosed: veralexandriallatus documented in this encounter Plan of Treatment Not on file documented as of this encounter Visit Diagnoses Not on filedocumented in this encounter Additional Health Concerns Assessment Noted Time PHQ-9 Depression Total Score: 6 04/24/19 1:43 PM EST documented as of this encounter Care Teams Toll Testboard Worker Relationship Specialty Start Date End Date Alex Sheriff MD [address] [place] [phone] PCP - General Internal Medicine 02/25/13 documented as of this encounter
--- OUTSIDE RECORDS SUMMARY | 2024-11-18 14:19 | XMS_ITS | Encounter Summary ---
Author Organization [employer] Address [address] [facility] 7 [place] [address] Care Team Providers Care Frothing Machine Operator Name Role Phone Alex Sheriff MD Primary Care Provider [phone] Reason for Visit * Reason Onset Date Comments Hospital Follow-up 12/23/2023 Encounter Details Date Type Department Care Team ([facility] st Contact Info) Description 12/23/2023 Telephone [facility] MEDICINE [address] [place] [address] Alex Sheriff MD [address] [place] [address] [phone] Hospital Follow-up Social History Tobacco Use Types [...] PM EST Tc from pt requesting a WalleptF appt. Hospital: [facility] [place] Date of admission: 12/18/2023 Discharge date: 12/22/2023 Diagnosed: Infection kidney *Send message to [facility] Clinical Care Coordinators documented in this encounter Plan of Treatment Not on file documented as of this encounter Visit Diagnoses Not on filedocumented in this encounter Care Teams Frothing Machine Operator Relationship Specialty Start Date End Date Alex Sheriff MD [address] [place] [id number] PCP - General Internal Medicine 02/25/13 documented as of this encounter
--- OUTSIDE RECORDS SUMMARY | 2024-11-18 14:19 | XMS_ITS | Encounter Summary ---
Author Organization [email or web address] Address [address] [facility] 7 [place] [address] Care Team Providers Care Water Analyst Name Role Phone Alex Sheriff MD Primary Care Provider [phone] Reason for Visit * Reason Onset Date Comments Referral 07/08/2024 Encounter Details Date Type Department Care Team ([facility] st Contact Info) Description 07/08/2024 Telephone [facility] MEDICINE [address] [place] [address] Alex Sheriff MD [address] [place] [address] Referral Social History Tobacco Use Types Packs/Day [...] regarding referral request. Pt was seen by [facility] on 07/07 for uterine bleeding. 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 Pt was triage. See encounter 07/07. documented in this encounter Plan of Treatment Not on file documented as of this encounter Visit Diagnoses Not on filedocumented in this encounter Additional Health Concerns Assessment Noted Time PHQ-9 Depression Total Score: 6 04/24/19 25 1:43 PM EST documented as of this encounter Care Teams Water Analyst Relationship Specialty Start Date End Date Alex Sheriff MD [address] [place] [id number] PCP - General Internal Medicine 02/25/13 documented as of this encounter
== END 2024-11-18 13:26 | disposition home or self-care (01) ==
LOC: HO.HWS 13:02
PROVIDERS: PCP Internal Medicine; Visit Provider Obstetrics & Gynecology
DX: D25.9 Leiomyoma of uterus, unspecified (principal); N83.299 Other ovarian cyst, unspecified side
CPT/HCPCS: 99213

== ENCOUNTER 2025-02-04 12:47 | Outpatient (AMB) | payer OTHER, SELFPAY ==
--- OUTSIDE RECORDS SUMMARY | 2025-02-03 14:20 | XMS_ITS | Encounter Summary ---
Author Organization [employer] Address [address] [facility] 7t [place] [address] Care Team Providers Care Meat Team Member Name Role Phone Alex Sheriff MD Primary Care Provider [phone] Reason for Visit * Reason Comments Sore Throat Encounter Details Date Type Department Care Team ([facility] Contact Info) Description 02/03/2025 2:20 PM EST Office Visit [facility] [address] [place], [place] [phone] Mara Grimm MD [address] [place] [address] Sore throat and laryngitis (Primary Dx); Cold sore Social History Tobacco Use Types Packs/Day Years [...] Sign Reading Time Taken Comments Blood Pressure 110/74 02/03/2025 2:34 PM EST Pulse 78 02/03/2025 2:34 PM EST Temperature 36.8 C (98.2 F) 02/03/2025 2:34 PM EST Respiratory Rate 20 02/03/2025 2:34 PM EST Oxygen Saturation 98% 02/03/2025 2:34 PM EST Inhaled Oxygen Concentration - - Weight 89.5 kg (197 lb 6.4 oz) 02/03/2025 2:34 P M EST Height 157.5 cm (5' 2 ) 02/03/2025 2:34 PM EST Body Mass Index 36.1 02/03/2025 2:34 PM EST documented in this encounter Progress Notes * Mara Grimm MD - 02/03/2025 2:20 PM EST Subjective Patient ID: Tank Santiago is a 49 y.o. adult who presents for Sore Throat. Chief Complaint Sore throat starting yesterday afternoon around 5 PM, painful swallowing since this morning, blister in mouth History of Present Illness Tank Santiago presents with sore throat and oral blister that began yesterday afternoon. The patient reports feeling fine in the morning but developed throat pain around 5 PM yesterday. She attempted home remedies including warm salt water gargles. This morning, she experienced pain with swallowing and noticed a blister in her mouth. The patient is unsure if she has had fever, stating she is those type of person that I get fever but I don't feel it. She denies headaches, ear pain, runny nose, cough, chest pain, shortness of breath, abdominal pain, diarrhea, or nausea. This morning she took ibuprofen which provided minimal relief for the throat pain. The patient reports this is only the second time in about a year that she has developed blisters when sick. She has been exposed to illness through her grandchildren, who recently had diarrhea and were told by their doctor that there was a virus going around, though the patient herself has not experienced diarrhea. Medical History - History of cold sores/oral blisters, second occurrence in approximately one year Medications and Supplements - Ibuprofen by mouth this morning. - Helped throat pain just a little bit. Social History - Living Situation: Lives with grandchildren who were recently ill Review of Systems General: Negative for fever (patient reports not feeling feverish despite tendency to have fever without feeling it). HEENT: Positive for sore throat and oral blister/cold sore. Negative for headache, ear pain, runny nose. Cardiovascular: Negative for chest pain. Respiratory: Negative for cough, shortness of breath. Gastrointestinal: Negative for abdominal pain, diarrhea, nausea. Review of Systems Objective BP 110/74 Pulse 78 Temp 98.2 ??F (36.8 ??C) (Oral) Resp 20 Ht 5' 2 (1.575 m) Wt 197 lb 6.4 oz (89.5 kg) SpO2 98% BMI 36.10 kg/m?? Physical Exam Constitutional: General: She is not in acute distress. Appearance: She is not ill-appearing. HENT: Head: Normocephalic and atraumatic. Right Ear: Tympanic membrane, ear canal and external ear normal. There is impacted cerumen. Left Ear: Tympanic membrane, ear canal and external ear normal. There is no impacted cerumen. Nose: No congestion. Mouth/Throat: Pharynx: Posterior oropharyngeal erythema present. No oropharyngeal exudate. Comments: Oral examination reveals presence of a blister/cold sore. Eyes: General: Right eye: No discharge. Left eye: No discharge. Extraocular Movements: Extraocular movements intact. Conjunctiva/sclera: Conjunctivae normal. Pupils: Pupils are equal, round, and reactive to light. Cardiovascular: Rate and Rhythm: Regular rhythm. Pulmonary: Effort: Pulmonary effort is normal. No respiratory distress. Breath sounds: Normal breath sounds. Musculoskeletal: Cervical back: Normal range of motion. Neurological: General: No focal deficit present. Mental Status: She is alert. Psychiatric: Mood and Affect: Mood normal. Assessment/Plan Problem List Items Addressed This Visit Sore throat and laryngitis - Primary Relevant Orders POCT Rapid Influenza A OSOM (Completed) POCT Rapid Influenza B OSOM (Completed) POCT Rapid Strep A OSOM (Completed) POCT Rapid Covid-19 BinaxNOW (Completed) Cold sore Relevant Medications ibuprofen 800 MG tablet valACYclovir (Valtrex) 1 g tablet Tank Santiago presents with sore throat that began yesterday afternoon and oral blister, with recent exposure to sick grandchildren who had diarrhea from a viral illness. Viral pharyngitis Assessment: Patient presents with acute onset sore throat beginning yesterday afternoon, progressing to painful swallowing by this morning. Physical examination reveals normal vital signs including normal temperature. Throat examination shows no erythema, exudate, or tonsillar swelling typical of st reptococcal pharyngitis. Recent exposure to sick grandchildren with viral gastroenteritis supports viral etiology. Symptoms are consistent with viral upper respiratory infection, part of current community viral outbreak affecting multiple patients with various symptoms including cough, runny nose, diarrhea, and nausea, with negative COVID-19 and influenza testing. Plan: - Continue ibuprofen for throat pain relief - Supportive care with warm salt water gargles - Honey for throat soothing if not allergic - Teas with lemon and niraj - Magic mouthwash available if severe throat pain (5 mL Benadryl, 5 mL Mylanta, 5 mL lidocaine) to numb throat - Avoid kissing grandchildren until sore resolves to prevent transmission Oral herpes simplex Assessment: Patient developed oral blister concurrent with viral illness. This represents second episode in approximately one year. Cold sore likely triggered by current viral infection and immune stress. Plan: - Valtrex 2 grams twice daily for one day documented in this encounter Plan of Treatment Not on file documented as of this encounter Procedures Procedure Name Priority Date/Time Associated Diagnosis Comments POCT INFLUENZA B Routine 02/03/2025 3:38 PM EST Sore throat and laryngitis POCT RAPID STREP A Routine 02/03/2025 3: 37 PM EST Sore throat and laryngitis POCT RAPID COVID ANTIGEN Routine 02/03/2025 3:36 PM EST Sore throat and laryngitis POCT INFLUENZA A Routine 02/03/2025 3:34 PM EST Sore throat and laryngitis documented in this encounter Results * POCT Rapid Influenza B OSOM (02/03/2025 3:38 PM EST) [facility] Rapid Influenza B Ag Negative Negative, Indeterminate QC Media Lot # [id number] Lot# Expiration Date [id number] Swab 02/03/2025 3:38 PM EST Result [facility] Mara Grimm MD POINT OF CARE TEST ENTER/EDIT ORDERABLES Final Result * POCT Rapid Strep A OSOM (02/03/2025 3:37 PM EST) [facility] Rapid Strep A Screen Negative Negative, None Detected QC Media Lot # [id number] Lot# Expiration Date [id number] Swab 02/03/2025 3:3 7 PM EST Mara Grimm MD POINT OF CARE TEST ENTER/EDIT ORDERABLES Final Result * POCT Rapid Covid-19 BinaxNOW (02/03/2025 3:36 PM EST) [facility] Rapid COVID Ag Negative QC Media Lot # [id number] Lot# Expiration Date [id number] Swab 02/03/2025 3:36 PM EST Mara Grimm MD POINT OF CARE TEST ENTER/EDIT ORDERABLES Final Result * POCT Rapid Influenza A OSOM (02/03/2025 3:34 PM EST) Rapid Influenza A Ag Negative Negative, Indeterminate QC Media Lot # [id number] Lot# Expiration Date [id number] Swab Nasopharyngeal structure / Unknown 02/03/2025 3:34 PM EST Mara Grimm MD POINT OF CARE TEST ENTER/EDIT ORDERABLES Edited Result - Final documented in this encounter Visit Diagnoses Diagnosis Sore throat and laryngitis- Primary Acute laryngopharyngitis Cold sore Herpes simplex without mention of complication documented in this encounter Additional Health Concerns Assessment Noted Time PHQ-9 Depression Total Score: 6 04/24/19 25 1:43 PM EST documented as of this encounter Care Teams Meat Team Member Relationship Specialty Start Date End Date Alex Sheriff MD [address] [place] [phone] PCP - General Internal Medicine 02/25/13 documented as of this encounter
[2025-02-04 12:49] VITALS: BP 122/84; BMI 36.4
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
--- OUTSIDE RECORDS SUMMARY | 2025-02-04 16:38 | XMS_ITS | Encounter Summary ---
Author Organization [employer] Address [address] [facility] [address] [place] [address] Care Team Providers Care Business Economist Name Role Phone Alex Sheriff MD Primary Care Provider [phone] Reason for Visit * Reason Onset Date Comments Nurse Triage 05/20/2023 Encounter Details Date Type Department Care Team ([facility] st Contact Info) Description 05/20/2023 Telephone [facility] MEDICINE [address] [place] [address] Alex Sheriff MD [address] [place], [place] [phone] Nurse Triage Social History Tobacco Use Types [...] on filedocumented in this encounter Care Teams Business Economist Relationship Specialty Start Date End Date Alex Sheriff MD [address] [place] [id number] PCP - General Internal Medicine 02/25/13 documented as of this encounter
--- OUTSIDE RECORDS SUMMARY | 2025-02-04 16:38 | XMS_ITS | Continuity of Care Document ---
Author Organization [facility], [facility] Address [address] [place] [address] Care Team Providers Care Program Clinician Name Role Phone VITALY GTZ Primary Care Provider Assessment Encounter Date Assessment Date Assessment LastModified by Organization Details LastModified Time 01/06/2025 01/06/2025 Ms. Santiago is a pleasant 41-year-old female who presents today with a history of chronic nasal congestion and chronic rhinitis that is significantly symptomatic and affecting her daily life. She has symptoms noted above. On prior examination with nasal endoscopy she has got diffuse watery rhinorrhea bilaterally as well as +3 turbinate hypertrophy and significant nasal obstruction. She had prior negative RAST testing, unable to tolerate skin prick due to beta-kenneth use long-term. CT scan was performed today which showed: Very minimal bilateral ethmoid thickening with mild right frontal thickening. Fairly straight septum with moderate-sized turbinates. Right Onodi cell. - We did discuss further medication trials, specifically ipratropium and/or Singulair. She does have a history of bipolar disorder which is well-controlled so she has some concerns with Singulair understandably. We will hold off at this time. -Will have her start ipratropium in addition to her other nasal sprays to try to dry out the nose -I really would like to get her allergy tested with skin prick that being said she needs to be off her beta-kenneth which she will continue to talk with her primary provider by. We cannot do this testing until she is off the medication -We also discussed potential sinus surgery including a posterior nasal nerve ablation and maxillary/anterior ethmoidectomy, she like to hold off at this time, this would be a consideration if she is not improving with either migraine therapy or Pratropium. -I do think if she does not improve with ipratropium, she could have a form of a vasogenic migraine which is causing her drainage, I did encourage her to consider this option. Please see migraine recommendations below - Encouraged low-salt diet - Encouraged improve hydration, avoidance of caffeine - Keep a migraine diary to look for potential symptom triggers - Consider using prophylactic migraine treatments, d/w their PCP or neurologist - Encouraged her to reach out if any significant changes in symptoms - Return visit in 2 to 3 months for recheck dlofgrenmd Not available 01/06/2025 11:41:02 Plan of Treatment Reminders Order Date Submit Date Provider Last Modified By Organization Details Last Modified Time Details Appointments Establish ed 15 2025 11:30A M Joe Hirsch, DO Not available Not available Not available Lab None recorded. Referral None recorded. Procedures None recorded. Surgeries None recorded. Imaging None recorded. Medication Orders ipratropi um bromide 21 mcg (0.03 %) nasal spray 2024 025 [id number], [address] [place], [place], [phone], 01/06/2025 11:41:53 Patient TargetsNo targets recorded. Patient InstructionsNo instructions recorded. Reason for Referral None Reported. Problems Name Problem SNOMED Code Status Onset Date Resolution Date Notes Provider Name and Address Organization Details Recorded Time Allergic rhinitis 38795308 Active 2024 Joe Hirsch DO [address] [place] [address], [place], [address], [facility] 5 09:43:40 Non-allergi c rhinitis 151186095729 Active 2024 Joe Hirsch DO [address] [place] [address], [place], [address], [facility] 5 09:43:40 Seasonal allergic rhinitis 268707584 Active 2024 Joe Hirsch DO [address] [place] [address], [place], [address], [facility] 5 22:32:00 Essential hypertensio n 95813274 Active 2024 Joe Hirsch, [address] [address], [place], [address], [facility] 5 13:19:27 Nasal discharge 34889768 Active 2024 Joe Hirsch, [address] [address], [place], [address], [facility] 5 08:51:42 Chronic sinusitis 27586621 Active 2024 Joe Hirsch, [address] [address], [place], [address], [facility] 5 08:51:48 Problem Notes None recorded. Procedures Surgical History Date Name Laterality Status Provider Name and Address Organization Details Recorded Time 01/06/2025 CT sinus - Xoran completed Joe Hirsch, [address], [address], [facility] 01/06/2025 11:38:46 09/28/2024 Nasal Endo DDx_DHL completed Joe Hirsch, [address], [address], [facility] 09/28/2024 13:23:36 Imaging Results None recorded. Procedure Notes None recorded. Medical Equipment None Reported. Allergies Allergen ID Allergen Name Allergen Category Reaction Reaction Severity Criticality Documentation Date Start Date Code Code System Note Provider Name and Address Organization Details Recorded Time 347394 morphine medicatio n Not available Not available Not available 09/28/2024 7052 RxNorm Harmony ho [facility] 13:00:28 Medications Name Sig Start Date Stop Date Status Note LastModified by Organization Details LastModified Time cetirizine 10 mg tablet TAKE 1 TABLET BY MOUTH 1 TO 2 TIMES DAILY NEEDED FOR ALLERGIES . DO NOT TAKE THIS IF YOU ARE TAKING DIPHENHYD RAMINE active Not Available Not Available No t Available metoprolol succinate ER 100 mg tablet,exte nded release 24 hr Take 1 tablet every day by oral route. active Not Available Not Available No t Available diltiazem ER 300 mg capsule,24 hr,extended release TAKE 1 CAPSULE BY MOUTH EVERY DAY active Not Available Not Available No t Available omeprazole 20 mg capsule,del ayed release active Not Available Not Available Not Available azelastine 137 mcg (0.1 %) nasal spray ADMINISTE R 1 SPRAY IN EACH NOSTRIL TWICE DAILY DIRECTED 09/28 completed Not Available Not Available Not Available cefuroxime axetil 500 mg tablet TAKE 1 TABLET BY MOUTH TWICE DAILY 08/28 completed Not Available Not Available Not Available lisinopril 40 mg tablet active Not Available Not Available Not Available fluticasone propionate 50 mcg/actuati on nasal spray,suspe nsion ADMINISTE R 1-2 SPRAYS INTO EACH NOSTRIL ONCE PER DAY active Not Available Not Available No t Available pseudoephed rine 60 mg tablet TAKE 1 TABLET BY MOUTH EVERY 4 HOURS NEEDED FOR CONGESTIO N FOR UP TO 10 DAYS 09/28 completed Not Available Not Available Not Available ipratropium bromide 21 mcg (0.03 %) nasal spray [place] 2 sprays twice a day by intranasa l route for 30 days. 2024 active Not Available Not Available Not Avai lable naproxen 500 mg tablet TAKE 1 TABLET BY MOUTH EVERY 8 TO 12 HOURS NEEDED FOR PAIN 09/28 completed Not Available Not Available Not Available amoxicillin 875 mg-potassiu m clavulanate 125 mg tablet TAKE 1 TABLET BY MOUTH TWICE DAILY FOR 10 DAYS 08/28 completed Not Available Not Available Not Available cyclobenzap rine 5 mg tablet TAKE 1 TABLET BY MOUTH EVERY 8 HOURS NEEDED FOR MUSCLE PAIN 09/28 completed Not Available Not Available Not Available mirtazapine 7.5 mg tablet TAKE 1 TABLET BY MOUTH EVERY DAY AT BEDTIME 09/28 completed Not Available Not Available Not Available nitrofurant oin monohydrate /macrocryst als 100 mg capsule TAKE 1 CAPSULE BY MOUTH TWICE DAILY FOR 7 DAYS 08/28 completed Not Available Not Available Not Available Ferretts 325 mg (106 mg iron) tablet TAKE 1 TABLET BY MOUTH EVERY DAY 09/28 completed Not Available Not Available Not Available diclofenac 1 % topical gel APPLY 4 GRAMS TOPICALLY TO THE AFFECTED AREA TWICE DAILY active Not Available Not Available No t Available tranexamic acid 650 mg tablet TAKE 2 TABLETS BY MOUTH THREE TIMES DAILY FOR 5 DAYS 09/28 completed Not Available Not Available Not Available Wegovy 0.25 mg/0.5 mL subcutaneou s pen injector ADMINISTE R 0.25 MG UNDER THE SKIN 1 TIME A WEEK 09/28 completed Not Available Not Available Not Available Vitals None Recorded Social History None recorded. Functional Status None recorded. Mental Status None recorded. Family History Nothing Reported. Medical History Condition Response Migraines Y Anxiety Y Hypertension Y Depression Y Kidney Disease Y Gynecological HistoryNo gynecological history recorded. Obstetrics History GPAL:G 0 P 0 0 0 0 Past Encounters Encounter ID Performer Location Encounter Start Date Encounter Closed Date Diagnosis/Indication Diagnosis SNOMED-CT Code Diagnosis ICD10 Code Diagnosis IMO Codes Diagnosis Note [id number] Joe Hirsch DO [facility] [address] [address] 01/06/2025 11:03:41 01/06/2025 11:35:38 Seasonal allergic rhinitis 014198984 J30.2 Essential hypertension 28173729 I10 82970 Needs to switch BP med Nasal discharge 23088509 J34.89 38289 Chronic sinusitis 872561 00 J32.8 34950 History of migraine 1614 39537 Z86.69 4255237 Health Concerns Section Related Observation LastModified by Organization Detai ls LastModified Time None Recorded Concern Status LastModified by Organization Details LastModified Time None Recorded Payers Encounter Date Sequence Insurance Name Policy Number Policy Boyce Covered Member ID Boyce Member ID Guarantor Name 01/06/2025 1 [facility] - DOS ON OR AFTER 2022 - ONE CARE (MEDICARE REPLACEMENT/AD VANTAGE - HMO) Tank Santiago [id number] Tank Santiago Notes Date Note Type Note Provider Name and Address Organization Details Recorded Time 01/06/2025 text/html ROS as noted in the HPI Interval Hx: Recently doubling her dose of Claritin which she would like to start with and continuing her nasal sprays. She feels like has been very minimal improvement. She also notes triggers like strong cologne and certain temperatures with a heater can make things worse. She does have a history of migraines. PV: Unable to get clearance for Intradermal testing previously 2/2 beta kenneth, primary team recommended against taking off of meds. Order for RAST testing placed on 10/09 patient has not had RAST testing yet. Unfortunately someone booked her an appointment for today without discussing in this. This will be a no bill visit PV: Tank is a 49F presenting with Rhinorrhea, sneezing, itchy/watery eyes, nasal congetstion. Intermittent allergies - Summer, more than the rest of year. Issues with dogs/cats specifically. Strong reaction to colognes. Patient was post be allergy tested by another office which recently shut down. She is here to discuss this today. No prior testing medically in the past. Has tried azelastine as well which had not helped. Pulm: No asthma or COPDCV: Prior surgery for heart ablation for SVT. No recurring sinus infection'sHx of Allergic rhinitis: flonaseOTC meds: Claritin helps a little bit. Joe Hirsch, DO [address] [facility] [address], [place], [address], [facility] 01/06/2025 11:41:33 OBGyn Episode No OBEpisode recorded.
--- OUTSIDE RECORDS SUMMARY | 2025-02-04 16:38 | XMS_ITS | Encounter Summary ---
Author Organization [employer] Address [address] [facility] 7t [place] [address] Care Team Providers Care Actuarial Intern Name Role Phone Alex Sheriff MD Primary Care Provider [phone] Reason for Visit * Reason Onset Date Comments Medication Question 08/05/2023 Encounter Details Date Type Department Care Team ([facility] Contact Info) Description 08/05/2023 Telephone [facility] MED[facility] [address] [place] [address] Alex Sheriff MD [address] [place], [place] [phone] Medication Question Social History Tobacco Use Types [...] a picnic yesterday and bent over to lease picker something and 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 [...] Wash out Pollen * Nasal Washes - [id number]-[id number] Instructions * Antihistamine Medicines for Hay Fever [...] encounter documented in this encounter Care Teams Actuarial Intern Relationship Specialty Start Date End Date Alex Sheriff MD [address] [place] [id number] PCP - General Internal Medicine 02/25/13 documented as of this encounter
--- OUTSIDE RECORDS SUMMARY | 2025-02-04 16:38 | XMS_ITS | Encounter Summary ---
Author Organization [employer] Address [address] [facility] [address] [place] [address] Care Team Providers Care Drafting Technician Name Role Phone Alex Sheriff MD Primary Care Provider [phone] Encounter Details Date Type Department Care Team ([facility] st Contact Info) Description 09/20/2023 Orders Only [facility] [address] [place] [address], [place] [phone] Alex Sheriff MD [address] [place] [address] Social History Tobacco Use Types Packs/Day Years [...] on filedocumented in this encounter Care Teams Drafting Technician Relationship Specialty Start Date End Date Alex Sheriff MD [address] [place] [address] PCP - General Internal Medicine 02/25/13 documented as of this encounter
--- OUTSIDE RECORDS SUMMARY | 2025-02-04 16:38 | XMS_ITS | Data Portability ---
Author Organization [place] [facility], Allergy Address [address] [address] Care Team Providers Care Commercial Accountant Name Role Phone VITALY SHERIFF Primary Care Provider Assessment Encounter Date Assessment Date Assessment LastModified by Organization Details LastModified Time 09/28/2024 09/28/2024 Ms. Santiago is a pleasant 41-year-old female who presents today with a history of allergic rhinitis that is significantly symptomatic and affecting her daily life. She has symptoms noted above. On examination with nasal endoscopy she has got diffuse watery rhinorrhea bilaterally as well as +3 turban hypertrophy and significant nasal obstruction. I do think she be a great candidate for allergy testing and immunotherapy. -I did encourage her to continue nasal saline rinses and fluticasone nasal spray. - I did also mention that she needs to be off of any antihistamine sprays or oral medications for testing the week prior. - Of note she does take diltiazem which she will not be able to be allergy tested on. I have asked her to speak with her primary doctor below about switching that medication. She would not be able to be tested on a beta-kenneth either of note. Dr. Vitaly Sheriff is PCP - Can follow up with me in 1-2 months after testing [email or web address] Not available 09/28/2024 13:24:16 11/13/2024 11/13/2024 Ms. Santiago is a pleasant 41-year-old female who presents today with a history of allergic rhinitis that is significantly symptomatic and affecting her daily life. She has symptoms noted above. On examination with nasal endoscopy she has got diffuse watery rhinorrhea bilaterally as well as +3 turban hypertrophy and significant nasal obstruction. I do think she be a great candidate for allergy testing and immunotherapy. -I did encourage her to continue nasal saline rinses and fluticasone nasal spray. - Patient to return visit after RAST testing [email or web address] Not available 11/13/2024 16:33:54 01/06/2025 01/06/2025 Ms. Santiago is a pleasant [...] in 2 to 3 months for recheck dlofgren Not available 01/06/2025 11:41:02 Plan of Treatment Reminders Order Date Submit Date Provider Last Modified By Organization Details Last Modified Time Details Appointments Establish ed 15 2025 11:30A M Joe Hirsch, DO Not available Not available Not available Lab None recorded. Referral None recorded. Procedures allergy testing, skin prick (PROC) 2024 025 [email or web address] Not available 11/24/2024 09:30:55 intraderm al allergy skin testing (PROC) 2024 025 [facility] Not available 11/24/2024 09:30:55 pulmonary function test procedure (PROC) 2024 025 [facility] Not available 11/24/2024 09:30:55 pulse oximetry (PROC) 2024 025 [facility] Not available 11/24/2024 09:30:55 Surgeries None recorded. Imaging None recorded. Medication Orders ipratropi um bromide 21 mcg (0.03 %) nasal spray 2024 [facility][id number], [address], [place], [id number], 01/06/2025 11:41:53 Patient TargetsNo targets recorded. Patient InstructionsNo instructions recorded. Reason for Referral None Reported. Results Created Date Observation Date Name Description Value Unit Range Abnormal Flag Note LastModifiedBy Organization Detail LastModifiedTime Result Notes None recorded. Problems Name Problem SNOMED Code Status Onset Date Resolution Date Notes Provider Name and Address Organization Details Recorded Time Allergic rhinitis 80110415 Active 2024 Joe Hirsch [address] [address], [place], [address], [facility] - [facility] 09:43:40 Non-allergi c rhinitis 023695369763 Active 2024 Joe Hirsch DO [address] [address], [place], [address], [facility] - [facility] 5 09:43:40 Seasonal allergic rhinitis 249780874 Active 2024 Joe Hirsch, DO [address] [facility], [facility], [place], [address], [facility] - [facility] [place] 22:32:00 Essential hypertensio n 24322245 Active 2024 Joe Hirsch, DO [address] [facility] [address], [place], [address], [facility] - [facility] 13:19:27 Nasal discharge 56698279 Active 2024 Joe Hirsch, DO [address] [facility],[address] [address], [place], [address], [facility] 08:51:42 Chronic sinusitis 52674159 Active 2024 Joe Hirsch, DO [address] [facility],[address] [address], [place], [address], [facility] 08:51:48 Problem Notes None recorded. Procedures Surgical History Date Name Laterality Status Provider Name and Address Organization Details Recorded Time 01/06/2025 CT sinus - Xoran completed Joe Hirsch, [address], [address], [facility] 01/06/2025 11:38:46 09/28/2024 Nasal Endo DDx_DHL completed Joe Hirsch, [address], [address], [facility] 09/28/2024 13:23:36 Imaging Results None recorded. Procedure Notes None recorded. Medical Equipment None Reported. Allergies Allergen ID Allergen Name Allergen Category Reaction Reaction Severity Criticality Documentation Date Start Date Code Code System Note Provider Name and Address Organization Details Recorded Time 411955 morphine medicatio n Not available Not available Not available 09/28/2024 7052 RxNorm Harmony ho [place] [facility] 13:00:28 Medications Name Sig Start Date Stop [...] bromide 21 mcg (0.03 %) nasal spray [place] 2 sprays twice a day by intranasa [...] ICD10 Code Diagnosis IMO Codes Diagnosis Note [id number] Joe Hirsch DO [facility] [address] [place] [address] 09/28/2024 12:26:55 09/28/2024 13:24:26 Seasonal allergic rhinitis 171400054 J30.2 Essential hypertension 69877109 I10 25044 [place] [id number] Joe Hirsch DO [facility] [address] [place] [address] 11/13/2024 14:18:00 11/13/2024 16:34:43 Seasonal allergic rhinitis 920946133 J30.2 Essential hypertension 47132011 I10 23471 [place] [id number] Joe Hirsch DO [facility] [address] [place] [address] 01/06/2025 11:03:41 01/06/2025 11:35:38 Seasonal allergic rhinitis 462106492 J30.2 Essential hypertension 63174960 I10 07400 Needs to switch BP med Nasal discharge 02685681 J34.89 49293 Chronic sinusitis 102111 00 J32.8 84202 History of migraine 1614 12836 Z86.69 5269077 Health Concerns Section Related Observation LastModified by Organization Detai ls LastModified Time None Recorded Concern Status LastModified by Organization Details LastModified Time None Recorded Advance Directives Directive None Recorded Payers Insurance Date Sequence Insurance Name Policy Number Policy Boyce Covered Member ID Boyce Member ID Guarantor Name 08/28/[address] [facility] - DOS ON OR AFTER 2022 - ONE CARE (MEDICARE REPLACEMENT/AD VANTAGE - HMO) Tank Santiago [id number] Lindaesther Jack 01/01/[address] [facility] - DOS ON OR AFTER 2022 - MEDICARE [place]VANTAGE [place] (MEDICARE REPLACEMENT/AD VANTAGE - PPO) Tank Santiago [id number] Tank Santiago 01/11/[address] [facility] - DOS ON OR AFTER 2022 - ONE CARE (MEDICARE REPLACEMENT/AD VANTAGE - HMO) Tank Santiago [id number] Tank Santiago Notes Date Note Type Note Provider Name and Address Organization Details Recorded Time 09/28/2024 text/html ROS as noted in the HPI Tank is a 49F presenting with Rhinorrhea, [...] a little bit. Joe Hirsch, DO [address] [facility],[address] [address], [place], [address], [facility] - [facility] 09/28/2024 13:24:52 11/13/2024 text/html ROS as noted in the HPI Interval Hx: Unable to get clearance for Intradermal testing [...] a little bit. Joe Hirsch, DO [address] [facility],[address], [address], [facility] - [facility] 11/13/2024 16:34:08 01/06/2025 text/html ROS as noted in the [...] a little bit. Joe Hirsch, DO [address] [facility],[address] [address], [place], [address], [place] [facility] 01/06/2025 11:41:33 OBGyn Episode No OBEpisode recorded.
--- OUTSIDE RECORDS SUMMARY | 2025-02-04 16:39 | XMS_ITS | Clinical Summary ---
Author Organization [employer] Address [address] [place] [address] 7[address] [place] [address] Care Team Providers Care Repairer Finished Metal Name Role Phone Alex Sheriff MD Primary Care Provider [phone] Allergies Active Allergy Reactions Criticality Noted Date Comments Morphine Palpitations,Shortne s s of breath,Unknown High 06/30/2018 Other Reaction(s): PAPLITATIONS, increased heart rate Other Reaction(s): Not available, PAPLITATIONS, increased heart rate Other Reaction(s): PAPLITATIONS, increased heart rate Other Reaction(s): Not available, PAPLITATIONS, increased heart rate Morphine And Codeine High 01/22/2012 Other reaction(s): heart rate fast Tramadol Rash Low 06/30/2018 Medications * This document contains information received [...] 1 024 Active PARoxetine (Paxil) 10 MG tabletIndications :Hot flushes, perimenopausal Take 1 tablet (10 mg) by mouth in the morning. 30 tablet 11 024 Active sucralfate (Carafate) 1 GM/10ML suspensionIndicat ions:Other [...] 3 Active omeprazole (PriLOSEC) [address] capsuleIndication s:Gastroesophagea l reflux disease without esophagitis TAKE 1 CAPSULE(20 MG) BY MOUTH BEFORE BREAKFAST. DO NOT CRUSH OR CHEW 90 capsule 3 Active fluticasone (Flonase) 50 MCG/ACT nasal sprayIndications: Nasal congestion Administer 1-2 sprays into each nostril Once per day. Shake gently. Before first use, prime pump. After use, clean tip and replace cap. 16 g 2025 Active mirtazapine (Remeron) 7.5 MG tablet TAKE 1 TABLET BY MOUTH EVERY DAY AT BEDTIME 90 tablet 3 Active loratadine (Claritin) 10 MG tablet Take 1 tablet by mouth Once per day. Active Ferretts 325 (106 Fe) MG tablet Take 1 tablet by mouth Once per day. Active metoprolol succinate XL (Toprol-XL) 100 MG 24 hr tabletIndications :Primary hypertension Take 1 tablet (100 mg) by mouth Once per day. TAKE 1 TABLET(100 MG) BY MOUTH IN THE MORNING. DO NOT CRUSH OR CHEW 30 tablet Active cetirizine (ZyrTEC) 10 MG tablet TAKE 1 TABLET BY MOUTH 1 TO 2 TIMES DAILY NEEDED FOR ALLERGIES. DO NOT TAKE THIS IF YOU ARE TAKING DIPHENHYDRAMINE 60 tablet Active baclofen (Lioresal) 10 MG tabletIndications :Acute left-sided low back pain with left-sided sciatica Take one tablet TID PRN 30 tablet Active Diclofenac Sodium 1 % gelIndications:Ac [place] left-sided low back pain with left-sided sciatica Apply 1 g topically if needed in the morning, at noon, and at bedtime (pain). 100 g 025 2024 Active ipratropium (Atrovent) 0.03 % nasal spray [place] 2 sprays twice a day by intranasal route for 30 days. Active ibuprofen 800 MG tablet Take 1 tablet (800 mg) by mouth 3 times daily. 90 tablet 2025 Active valACYclovir (Valtrex) 1 g tabletIndications :Cold sore Take 2 tablets (2,000 mg) by mouth 2 times daily. 4 tablet Active ibuprofen 800 MG tabletIndications :Breast pain, left,Pain in left cavanaugh TAKE 1 TABLET(800 MG) BY MOUTH THREE TIMES DAILY 90 tablet 2024 Discontin ued(Alter olivia therapy) ibuprofen 600 MG tabletIndications :Acute left-sided low back pain with left-sided sciatica Take 1 tablet (600 mg) by mouth every 6 (six) hours if needed for mild pain for up to 14 days. 56 tablet 2024 Active Problems Problem Noted Date Diagnosed Date Sore throat and laryngitis 02/03/2025 Cold sore 02/03/2025 Nasal discharge 01/06/2025 Chronic sinusitis 01/06/2025 Bunion of left foot 01/06/2025 Abdominal pain 11/16/2024 Abnormal uterine bleeding 11/16/2024 Diverticulitis 11/16/2024 Fever 11/16/2024 Paresthesia 11/16/2024 Post-op pain 11/16/2024 Severe obesity (BMI 35.0-39.9) with comorbidity (CMS/[facility]ERLY [facility]) 11/16/2024 Vomiting 11/16/2024 Hydronephrosis, left 11/16/2024 Bilateral [...] hypertension 04/14/2020 Hypertension 05/01/2012 Asthma 08/01/2011 Encounters * This document contains information received from the source organization and may not represent a complete record from that organization. Date Type Department Care Team Description 02/03/2025 2:20 PM EST Office Visit [facility] CHC MED & PEDS [address] [place] [address] Mara Grimm MD Sore throat and laryngitis (Primary Dx); Cold sore 02/03/2025 Travel 02/03/[address] [facility] MEDICINE [address] [place] [address] Alex Sheriff MD Nurse Triage 01/13/2025 2:00 PM EST Office Visit [facility] WALK-IN CENTER [address] [place], [place] [phone] Sara Alicia NP Acute left-sided low back pain with left-sided sciatica (Primary Dx) 01/13/2025 Travel 01/13/[address] [facility] MEDICINE [address] [place] [address] Alex Sheriff MD Nurse Triage 12/13/[address] [facility] CH[facility] MED & PEDS [address] [place] [address] Alex Sheriff MD 11/17/2024 11:30 AM EDT Office Visit [facility] MED & PEDS [address] [place] [address] Alex Sheriff MD Vaginal bleeding (Primary Dx); Primary hypertension; Encounter for immunization; Class 2 obesity 11/17/2024 Travel 11/16/2024 Telephone [facility] MED & PEDS [address] [place] [address] Alex Sheriff MD chart prep from Last 3 Months Immunizations Immunization Administration [...] Mass Index 36.1 02/03/2025 2:34 PM EST Plan of Treatment Health Maintenance [...] 04/23/2024 Disability Screening 11/17/2025 11/17/2024 Tobacco Screening 02/03/2026 02/03/2025 Zoster Vaccines (1 of 2) 2026 Lipid [...] and laryngitis POCT INFLUENZA A Routine 02/03/2025 3:3 4 PM EST Sore throat and laryngitis US PELVIS TRANSVAGINAL Routine 10:44 AM EDT BI MAMMOGRAM SCREENING TOMOSYNTHESIS BILATERAL Routine 10/29/2024 11:45 AM EDT HEPATITIS C AB W/REFL TO HCV [...] Recently Relevant to Health Maintenance Results * POCT Rapid Influenza B OSOM (02/03/2025 3:38 PM EST) [facility] Rapid Influenza B Ag Negative Negative, Indeterminate QC Media Lot # [id number] Lot# Expiration Date Swab 02/03/2025 3:38 PM EST Mara Grimm MD POINT OF CARE TEST ENTER/EDIT ORDERABLES Final Result * POCT Rapid Strep A OSOM (02/03/2025 3:37 PM EST) [facility] Rapid Strep A Screen Negative Negative, None Detected QC Media Lot # [id number] Lot# Expiration Date 3, Swab 02/03/2025 3:37 PM EST Mara Grimm MD POINT OF CARE TEST ENTER/EDIT ORDERABLES Final Result * POCT Rapid Covid-19 BinaxNOW (02/03/2025 3:36 PM EST) [facility] Rapid COVID Ag Negative QC Media Lot # [id number] Lot# Expiration Date , Swab 02/03/2025 3:36 PM EST us Mara Grimm MD POINT OF CARE TEST ENTER/EDIT ORDERABLES Final Result * POCT Rapid Influenza A OSOM (02/03/2025 3:34 PM EST) [facility] Rapid Influenza A Ag Negative Negative, Indeterminate QC Media Lot # [id number] Lot# Expiration Date Swab Nasopharyngeal structure / Unknown 02/03/2025 3:34 PM EST us Mara Grimm MD POINT OF CARE TEST ENTER/EDIT ORDERABLES Edited Result - Final * US Pelvis Transvaginal (11/11/2024 10:44 AM EDT) Anatomical Region Laterality Modality Pelvis Ultrasound 11/11/2024 10:4 4 AM EDT Narrative 11/11/2024 10:46 AM EDT [address] [address] Ultrasound Report Signed Patient: Tank Khan MR#: [id number] : 1975 Acct:[id number] Age/Sex: 49 / F ADM Date: 11/10/24 Loc: HO.US Attending Dr: Chandler Uribe MD Ordering Physician: Chandler Uribe MD Date of Service: 11/10/24 Procedure(s): US pelvic and transvaginal Accession Number(s): [id number] cc: Alex Sheriff MD; Chandler Uribe MD [...] 11/11/24 1046 DD/ 1044 TD/TT: 11/11/24 1044 Plastic Welder: Procedure Note Donotuseinterpreter, Image - 11/11/2024 [place] [address] Ultrasound Report Signed Patient: Tank Khan MR#: [id number] : 1975Acct:[id number] Age/Sex: 49 / FADM Date: 11/10/24 Loc: HO.US Attending Dr: Chandler Uribe MD Ordering Physician: Chandler Uribe MD Date of Service: 11/10/24 Procedure(s): US pelvic and transvaginal Accession Number(s): [id number] cc: Alex Sheriff MD; Chandler Uribe MD [...] 11/11/24 1046 DD/ 1044 TD/TT: 11/11/24 1044 Plastic Welder: us [facility] External Provider IMG US PROCEDURES Final Result * BI Mammogram Screening Tomosynthesis Bilateral (10/29/2024 11:45 AM EDT) Anatomical Region Laterality Modality Breast Bilateral Mammography 10/29/2024 11:4 5 AM EDT Narrative 11/02/2024 6:10 PM EDT [address] [place] [address] Mammography Report Signed Patient: Tank hKan MR#: [id number] : 1975 Acct:[id number] Age/Sex: 49 / F ADM Date: 10/29/24 Loc: HO.MAMMO Attending Dr: Alex Sheriff MD Ordering Physician: Alex Sheriff MD Results: 1 Negative Date of Service: 10/29/24 Follow Up: 1 Year From [facility] Mammogram Procedure(s): MM tomosynthesis screening BI Accession Number(s): [id number] cc: Alex Sheriff MD Reason For Exam: [...] 11/02/24 1807 DD/ 1145 TD/TT: 10/29/24 1210 Plastic Welder: Procedure Note Donotuseinterpreter, Image - 11/02/2024 [place] [facility] [address] [place] [address] Mammography Report Signed Patient: Tank Khan MR#: [id number] : 1975Acct:[id number] Age/Sex: 49 / FADM Date: 10/29/24 Loc: HO.MAMMO Attending Dr: Alex Sheriff MD Ordering Physician: Alex Sheriff MDResults: 1 Negative Date of Service: 10/29/24Follow Up: 1 Year From Orig inal Mammogram Procedure(s): MM tomosynthesis screening BI Accession Number(s): [id number] cc: Alex Sheriff MD Reason For Exam: [...] 11/02/24 1807 DD/ 1145 TD/TT: 10/29/24 1210 Plastic Welder: us Alex Sheriff MD IMG BI PROCEDURES Final Res ult * Hepatitis C Antibody with Reflex to [...] Final Result [facility] [address] [place] [phone] * HIV-1/2 Antigen and Antibodies, Fourth Generation, with Reflexes (04/23/2024 1:51 PM EST) HIV AB/AG Nonreactive Nonreactive [facility] Comment:HIV-1 p24 Ag and/or HIV-1/HIV-2 Ab not detected.A test result that is nonreactive does not exclude thepossibility of exposure to or infection with HIV-1 and/orHIV-2. Nonreactive results in this assay for individualswith prior exposure to HIV-1 and/or HIV-2 may be due toantigen and antibody levels that are below the limit ofdetection of this assay.[employer] HIV Ag/Ab Combo assay result andsupplemental assay results should be interpreted inconjunction with the patient's clinical presentation,history and other laboratory results. If the results areinconsistent with clinical evidence, additional testing issuggested to confirm the result. Blood Venous blood specimen / Unknown 04/23/2024 1:51 PM EST 04/23/2024 5:34 PM EST us Alex Sheriff MD LAB BLOOD ORDERABLES Final Result Performing Organization Address [facility]/ZIP Co de Phone Number [facility] [address] [place] [phone] [phone] * HPV mRNA E6/E7 w/Reflex to [...] alternative testing options.For additional information, please refer tohttp://education.[employer]/faq/UZF280y5(This link if provided for information/educational purposes only.)THIS TEST WAS PERFORMED AT:[facility] [place] [phone] THOMAS MD HPV mRNA E6/E7 TNP [facility] HPV 16 RNA [facility] HPV 18/45 RNA [facility] 09/25/2022 2:23 PM EDT 09/27/2022 9:00 AM EDT us Nadiya Kumar CNM LAB CYTOLOGY ORDERABLES F inal Result [facility] [address] [place] [phone] * Pap Smear (09/25/2022 2:23 PM EDT) 09/25/2022 2:23 PM EDT 09/27/2022 9:00 AM EDT [facility] - 10/24/2022 2:24 PM EDT ----- ------- Name: Tank Santiago Age/Sex: 47/F : 1975 Unit#: [id number] Attend Dr: NADIYA KUMAR CNM Re09/25/[address] [facility] Disch: ----- ------- SPEC : [id number] RECD: 09/27/22 STATUS: TERELL GALEANA NUM: [id number] SHAHRIAR: 09/25/22-1423 [facility] DR: NADIYA KUMAR CNM ENTERED: 09/27/22-1905 SP TYPE: Pap Smr [facility] DR: ORDERED: Pap Smear, PAP path review Interpretation General Category: Negative for intraepithelial lesion/malignancy. Adequacy: Endocervical component present. Interpretation: Reactive cellular changes. HPV mRNA E6/E7: Not Detected This assay detects E6/E7 viral messenger RNA (mRNA) from 14 high-risk HPV types (16, 18, 31, 33, 35, 39, 45, 51, 52, 56, 58, 59, 66, 68) HPV testing performed by [employer], [place], [place]. See reference laboratory portion of the EMR for entire report. Clinical Information LMP:Unknown date Previous PAP test:Unknown date/findings Other history: ASCUS, HPV neg 01/2019 Material Received ThinPrep-Cervical ----- ------- Signed (signature on file) Sterling White MD 10/24/22 1424 ----- ------- END OF REPORT us Nadiya Kumar [facility] CYTOLOGY ORDERABLES F inal Result [facility] [address] [place] [phone] * (ABNORMAL) LIPID PANEL, STANDARD (07/24/2021 10:35 [...] LDL-C. Minh MATAMOROS et al. POONAM. 2013;310(19): 3402-6484 (http://education.MailPix.com/faq/HMK047) Non-HDL Cholesterol 178(H) <130 mg/dL (calc) [facility] Comment: For patients with diabetes plus 1 major ASCVD risk factor, treating to a non-HDL-C goal of <100 mg/dL (LDL-C of <70 mg/dL) is considered a therapeutic option. Triglycerides 172(H) <150 mg/dL [facility] 07/24/2021 10:3 5 AM EDT Steph Rebolledo MD LAB BLOOD ORDERABLES Final Result [facility] [address] from Last 3 Months or Most Recently Relevant to Health Maintenance Insurance [employer] ONE CARE < 65 [place] [id number] [employer] ONE CARE < 65 [facility] ONE CARE < 65 Care Teams Repairer Finished Metal Relationship Specialty Start Date End Date Alex Sheriff MD [address] [place] [phone] PCP - General Internal Medicine 02/25/13
--- OUTSIDE RECORDS SUMMARY | 2025-02-04 16:39 | XMS_ITS | Clinical Summary ---
Author Organization [address] [place] [address] Address [address] [place] [address] Phone Care Team Providers Care Correctional Supply Supervisor Name Role Phone Alex Sheriff MD Primary Care Provider [phone] Allergies Active Allergy Reactions Criticality Noted Date Comments Morphine Shortness of breath,Palpitations,Unkn own High 06/30/2018 Other Reaction(s): PAPLITATIONS, increased heart rate Other Reaction(s): Not available, PAPLITATIONS, increased heart rate Tramadol Hcl Rash Low 06/30/2018 Medications azelastine (ASTELIN) 137 mcg (0.1 %) nasal spray ADMINISTER 1 SPRAY IN EACH NOSTRIL TWICE DAILY DIRECTED 03/25/19 25 Active baclofen (LIORESAL) 10 mg tablet Take 1 tablet (10 mg total) by mouth. 03/30/19 23 Active butalbital-tersea taminophen-caf feine (FIORICET, ESGIC) 50-325-40 mg per tablet Take 1 tablet by mouth every 6 hours as needed. 01/30/20 23 Active cetirizine (ZyrTEC) 10 mg tablet TAKE 1 TABLET BY MOUTH 1 TO 2 TIMES DAILY NEEDED FOR ALLERGIES. DO NOT TAKE THIS IF YOU ARE TAKING DIPHENHYDRAMINE 12/15/19 25 Active dilTIAZem (TIAZAC) 300 mg 24 hr capsule Take 1 capsule (300 mg total) by mouth 1 (one) time each day. Active ferrous fumarate 325 mg (106 mg iron) tablet Take 1 tablet by mouth daily. 08/12/19 25 Active Allergy Relief, fexofenadine, 180 mg tablet 02/20/19 25 Active fluticasone propionate (FLONASE) 50 mcg/actuation nasal spray ADMINISTER 1-2 SPRAYS INTO EACH NOSTRIL ONCE PER DAY 04/24/19 25 Active ibuprofen (ADVIL,MOTRIN) 800 mg tablet Take 1 tablet (800 mg total) by mouth 3 times daily. 05/19/19 25 Active lisinopril (PRINIVIL,ZEST RIL) 40 mg tablet 02/18/19 23 Active loratadine (CLARITIN) 10 mg tablet Take 1 tablet (10 mg total) by mouth daily. Active metoprolol succinate (TOPROL-XL) 100 mg 24 hr tablet Take 1 tablet (100 mg total) by mouth 1 (one) time each day. Active mirtazapine (REMERON) 7.5 mg tablet Take 1 tablet (7.5 mg total) by mouth. 05/19/19 25 Active nortriptyline (PAMELOR) 25 mg capsule 02/20/19 25 Active PARoxetine (PAXIL) 10 mg tablet Take 1 tablet (10 mg total) by mouth. 11/05/19 24 Active pseudoephedrin e (SUDAFED) 60 mg tablet TAKE 1 TABLET BY MOUTH EVERY 4 HOURS NEEDED FOR CONGESTION FOR UP TO 10 DAYS 03/25/19 25 Active sucralfate (CARAFATE) 100 mg/mL suspension BEFORE BREAKFAST, BEFORE LUNCH, BEFORE EVENING MEAL AND AT BEDTIME 12/24/19 24 Active topiramate (TOPAMAX) 25 mg tablet 12/10/19 25 Active Active Problems Problem Noted Date Diagnosed Date Bunion of left foot 01/06/2025 Encounters Date Type Department Care Team Description 01/06/2025 10:15 AM EST Office Visit Orthopedic Surgery - [address] [address] Kobi Saavedra, DPM Bunion of left foot (Primary Dx); Neuritis from Last 3 Months Surgical History Surgery [...] Years Used Date Smoking Tobacco: Former Cigarettes 0 Q uit: 02/18/2015 Smokeless Tobacco: Never Alcohol [...] 10/06/2024 9:32 AM EDT Plan of Treatment Scheduled Procedures Name Priority Associated Diagnoses Date/Ti me BUNIONECTOMY Bunion of left foot Health Maintenance Due Date Last Done Comments Breast Cancer Screening 1975 Colorectal Cancer Screening: Colonoscopy 1975 Drug Screen 1975 Non-Opioid Controlled Substance Agreement 1975 Hepatitis B Vaccines (1 of 3 - 19+ 3-dose series) 05/10/1995 Medicare Annual Wellness Visit 03/19/2023 Social Influencers of Health Screening 03/19/2023 Depression Screening 02/19/2024 COVID-19 Vaccine ( season) 2024 06/26/2021, 05/28/2020 Hypertension/CHF/CAD Annual BMP Blood Test 08/02/2025 08/02/2024, [...] on patient's age to complete this topic Goals Goal Patient Goal Type Associated Problems Recent Progress Patient-Stated? Author Autogenera johnnie Goal Care Plan Autogenerated Problem No Kobi Saavedra, DPM Additional Health Concerns Active Problems Noted Date Diagnosed Date Autogenerated Problem 01/06/2025 Insurance [facility] MEDICARE Member Subscriber Plan / Payer (Ef fective 2013-Present) Name:TANK SANTIAGO Relation to Subscriber:Self Name:Tank Santiago Payer ID:[id number] Group ID:[id number] Type:Not on file Address: [place] [address] [place] [id number] Care Teams Correctional Supply Supervisor Relationship Specialty Start Date End Date Alex Sheriff MD [address] [place], [place] [facility] - General 03/14/22
--- OUTSIDE RECORDS SUMMARY | 2025-02-04 16:39 | XMS_ITS | Continuity of Care Document ---
Author Organization [place] - [facility], [facility] Address [address] [place] [address] Care Team Providers Care Technical Sales Representatives Name Role Phone VITALY GTZ Primary Care Provider Assessment Encounter Date Assessment Date Assessment LastModified by Organization Details LastModified Time 11/13/2024 11/13/2024 Ms. Santiago is a pleasant [...] RAST testing dlofgrenmd Not available 11/13/2024 16:33:54 Plan of Treatment Reminders Order Date Submit Date Provider Last Modified By Organization Details Last Modified Time Details Appointments Establish ed 15 2025 11:30A Sylvia Hirsch, DO Not available Not available Not available Lab None recorded. Referral None recorded. Procedures None recorded. Surgeries None recorded. Imaging None recorded. Medication Orders None recorded. Patient TargetsNo targets recorded. Patient InstructionsNo instructions recorded. Reason for Referral None Reported. Problems Name Problem SNOMED Code Status Onset Date Resolution Date Notes Provider Name and Address Organization Details Recorded Time Allergic rhinitis 48366777 Active 2024 Joe Hirsch DO [address], [address] [place] [address] - [facility] 08/11/202 5 09:43:40 Non-allergi c rhinitis 794670822460 Active 2024 Joe Hirsch [place] [address], [place], [phone], [facility] 5 09:43:40 Seasonal allergic rhinitis 527054989 Active 2024 Joe Hirsch [place] [address], [place], [phone], [facility] 5 22:32:00 Essential hypertensio n 33899059 Active 2024 Joe Hirsch [place] [address], [place], [address], [facility] 13:19:27 Nasal discharge 28165758 Active 2024 Joe Hirsch [address], [address], [facility] 5 08:51:42 Chronic sinusitis 41482186 Active 2024 Joe Hirsch [address], [address], [facility] 5 08:51:48 Problem Notes None recorded. Procedures Surgical History Date Name Laterality Status Provider Name and Address Organization Details Recorded Time 01/06/2025 CT sinus - Xoran completed Joe Hirsch [address], [address], [facility] 01/06/2025 11:38:46 09/28/2024 Nasal Endo DDx_DHL completed Joe Hirsch [address], [address], [facility] 09/28/2024 13:23:36 Imaging Results None recorded. Procedure Notes None recorded. Medical Equipment None Reported. Allergies Allergen ID Allergen Name Allergen Category Reaction Reaction Severity Criticality Documentation Date Start Date Code Code System Note Provider Name and Address Organization Details Recorded Time 153324 morphine medicatio n Not available Not available Not available 09/28/2024 7052 RxNorm [place] - [facility] 13:00:28 Medications Name Sig Start Date [...] bromide 21 mcg (0.03 %) nasal spray [place] 2 sprays twice a day by intranasa [...] Reported. Medical History Condition Response Migraines Y Hypertension Y Anxiety Y Depression Y Kidney Disease Y Gynecological HistoryNo gynecological history recorded. Obstetrics History GPAL:G 0 P 0 0 0 0 Past Encounters Encounter ID Performer Location Encounter Start Date Encounter Closed Date Diagnosis/Indication Diagnosis SNOMED-CT Code Diagnosis ICD10 Code Diagnosis IMO Codes Diagnosis Note [id number] Joe Hirsch, DO [facility] [address] [address] 11/13/2024 14:18:00 11/13/2024 16:34:43 Seasonal allergic rhinitis 778068807 J30.2 Essential hypertension 01223096 I10 79042 Needs to switch BP med Health Concerns Section Related Observation LastModified by Organization Detai ls LastModified Time None Recorded Concern Status LastModified by Organization Details LastModified Time None Recorded Payers Encounter Date Sequence Insurance Name Policy Number Policy Boyce Covered Member ID Boyce Member ID Guarantor Name 11/13/2024 1 [facility] - DOS ON OR AFTER 2022 - MEDICARE ADVANTAGE [place] (MEDICARE REPLACEMENT/AD VANTAGE - PPO) Tank Santiago [id number] Tank Santiago Notes Date Note Type Note Provider Name and Address Organization Details Recorded Time 11/13/2024 text/html ROS as noted in the [...] a little bit. Joe Hirsch, DO [address] [facility],[place] [address], [place], [address], [place] - [facility] 11/13/2024 16:34:08 OBGyn Episode No OBEpisode recorded.
--- OUTSIDE RECORDS SUMMARY | 2025-02-04 16:39 | XMS_ITS | Encounter Summary ---
Author Organization [employer] Address [address] [place] [address] [address] [place] [address] Care Team Providers Care Home Based Assistant Name Role Phone Alex Sheriff MD Primary Care Provider [phone] Encounter Details Date Type Department Care Team (Late st Contact Info) Description 07/13/2022 Abstract [facility] P[facility]S [address] [place] [address] Alex Sheriff MD [address] [place] [address] Social History Tobacco Use Types Packs/Day Years [...] on filedocumented in this encounter Care Teams Home Based Assistant Relationship Specialty Start Date End Date Alex Sheriff MD [address] [place] [address] PCP - General Internal Medicine 02/25/13 documented as of this encounter
--- OUTSIDE RECORDS SUMMARY | 2025-02-04 16:39 | XMS_ITS | Encounter Summary ---
Author Organization [employer] Address [address] [facility] 7 [place] [address] Care Team Providers Care Meal Temperer Name Role Phone Alex Sheriff MD Primary Care Provider [phone] Reason for Visit * Reason Onset Date Comments Referral 07/08/2024 Encounter Details Date Type Department Care Team ([facility] st Contact Info) Description 07/08/2024 Telephone [facility] [address] [place] [address] Alex Sheriff MD [address] [place] [address] Referral Social History Tobacco Use Types Packs/Day [...] regarding referral request. Pt was seen by [facility] on 07/07 for [...] EDT Tc from pt requesting referral for FLOOR MANAGER [facility] regarding Abnormal uterine bleeding. Pt was triage. See encounter 07/07. documented in this encounter Plan of Treatment Not on file documented as of this encounter Visit Diagnoses Not on filedocumented in this encounter Additional Health Concerns Assessment Noted Time PHQ-9 Depression Total Score: 6 04/24/19 25 1:43 PM EST documented as of this encounter Care Teams Meal Temperer Relationship Specialty Start Date End Date Alex Sheriff MD [address] [place] [id number] PCP - General Internal Medicine 02/25/13 documented as of this encounter
--- OUTSIDE RECORDS SUMMARY | 2025-02-04 16:39 | XMS_ITS | Encounter Summary ---
Author Organization [employer] Address [address] [facility] 7 [place] [address] Care Team Providers Care Flow Manager Name Role Phone Alex Sheriff MD Primary Care Provider [phone] Reason for Visit * Reason Onset Date Comments Hospital Follow-up 12/23/2023 Encounter Details Date Type Department Care Team ([facility] st Contact Info) Description 12/23/2023 Telephone [facility] [address] [place] [address] Alex Sheriff MD [address] [place] [address] [phone] Hospital Follow-up Social History Tobacco Use Types [...] PM EST Tc from pt requesting a [employer] appt. Hospital: [facility] Date of admission: 12/18/2023 Discharge date: 12/22/2023 Diagnosed: Infection kidney *Send message to [facility] Clinical Care Coordinators documented in this encounter Plan of Treatment Not on file documented as of this encounter Visit Diagnoses Not on filedocumented in this encounter Care Teams Flow Manager Relationship Specialty Start Date End Date Alex Sheriff MD [address] [place] [id number] PCP - General Internal Medicine 02/25/13 documented as of this encounter
--- OUTSIDE RECORDS SUMMARY | 2025-02-04 16:39 | XMS_ITS | Encounter Summary ---
Author Organization [employer] Address [address] [facility] 7 [place] [address] Care Team Providers Care Cloud Services Architect Name Role Phone Alex Sheriff MD Primary Care Provider [phone] Reason for Visit * Reason Onset Date Comments Nurse Triage 02/03/2025 Encounter Details Date Type Department Care Team ([facility] st Contact Info) Description 02/03/2025 Telephone [facility] MED[facility] [address] [place] [address] Alex Sheriff MD [address] [place] [address] Nurse Triage Social History Tobacco Use Types [...] encounter Miscellaneous Notes * Telephone Encounter - Sheri Koehler RN - 02/03/2025 10:12 AM EST Telephone call to pt who reports sore throat, cold sores on mouth, cough x2 days. Denies fever, runny nose, pus on tonsils, headache. States the sore throat is worse today, confirms is able to eat and drink but it is painful. She is unaware of specific sick contacts. She is requesting appt for strep test. Scheduled today for same day care clinic. Discussed home care as below, reasons to call back. Pt verbalized understanding. Protocol Used: Sore Throat (Adult) Protocol-Based Disposition: Strep Test Only Visit Today or Tomorrow Positive Triage Question: * Patient requesting a strep throat test * All higher-acuity triage questions were negative. Care Advice Discussed: * Reassurance and Education - Sore Throat * Soft Diet * Drink Plenty of Liquids * Reasons To Call Back - Sore throat is the main symptom and it lasts longer than 48 hours - Sore throat is mild but lasts longer than 4 days - Fever lasts longer than 3 days - You become worse * Telephone Encounter - Lani Rodgers - 02/03/2025 9:32 AM EST Symptom: Sore Throat Outcome: Schedule an appointment to be seen within 24 hours Reason: Caller denied all higher acuity questions The caller accepted this outcome. Contact pt at [phone] documented in this encounter Plan of Treatment Not on file documented as of this encounter Visit Diagnoses Not on filedocumented in this encounter Additional Health Concerns Assessment Noted Time PHQ-9 Depression Total Score: 6 04/24/19 25 1:43 PM EST documented as of this encounter Care Teams Cloud Services Architect Relationship Specialty Start Date End Date Alex Sheriff MD [address] [place] [id number] PCP - General Internal Medicine 02/25/13 documented as of this encounter
--- OUTSIDE RECORDS SUMMARY | 2025-02-04 16:39 | XMS_ITS | Encounter Summary ---
Author Organization [employer] Address [address] [place] [address] 7 [place] [address] Care Team Providers Care Shaker Washer Name Role Phone Alex Sheriff MD Primary Care Provider [phone] Encounter Details Date Type Department Care Team ([facility] st Contact Info) Description 03/28/2022 Abstract [facility] PEDS [address] [place] [address] Alex Sheriff MD [address] [place] [address] Social History Tobacco Use Types Packs/Day Years [...] on filedocumented in this encounter Care Teams Shaker Washer Relationship Specialty Start Date End Date Alex Sheriff MD [address] [place] [address] PCP - General Internal Medicine 02/25/13 documented as of this encounter
--- OUTSIDE RECORDS SUMMARY | 2025-02-04 16:39 | XMS_ITS | Encounter Summary ---
Author Organization [employer] Address [address] [place] [address] Care Team Providers Care Cotton Roll Packer Name Role Phone Alex Sheriff MD Primary Care Provider [phone] Encounter Details Date Type Department Care Team (Late st Contact Info) Description 05/14/2022 Orders Only [facility] MED & PEDS [address] [place], [place] [phone] Matilde Norwood LPN Social History Tobacco Use [...] 1:35 PM EDT 08/07/2022 2:30 PM EDT [facility] LABS - 08/08/2022 6:12 PM EDT ----- ------- Name: Tank Khan Age/Sex: 47/F : 1975 Unit#: [id number] Attend Dr: Matteo Littlejohn MD Re08/07/22 Status: [facility] Location: [facility] Disch: ----- ------- SPEC : [id number] RECD: 08/07/22 [facility] NUM: [id number] YESI: 08/07/[address] [facility] [address]: Matteo Littlejohn MD ENTERED: 08/07/22-387 SP TYPE: Surgical OTHR DR: Alex Sheriff MD ORDERED: GO Diagnosis Right ureteral stone: Calculous material. Gross examination only. Sent for chemical analysis. Please see laboratory portion of the EMR for outside report from [employer]. Clinical History Pre-Op Dx: Calculus of kidney Post-Op Dx: Right ureteral stone Material Received Right ureteral stone Gross Description Received fresh labeled right ureteral stone is a 0.45 cm in greatest dimension hard, david calculus which is forwarded for chemical analysis. No soft tissue is identified. Gross description only. CEDS Copies To: Matteo Littlejohn MD [address] [place] [address] [address] [place] [address] [email or web address] Alex Sheriff MD [address] [place] [address] ----- ------- Signed (signature on file) Sterling White MD 08/08/221811 ----- ------- END OF REPORT [facility] External Provider LAB BLO OD ORDERABLES Final Result Performing Organization Address [facility]/ZIP Co de Phone Number [facility] [address] [place] [address] [phone] * HCG, Qualitative, Urine (08/07/2022 10:30 AM EDT) Pathologist [facility] Urine NEGATIVE NEGATIVE [facility] Comment:This test was develo ped to detect early . Falsenegative results may occur after the 5th - 7th week ofpregnancy when using this test method. If clinicallyindicated, consider a serum hCG. 08/07/2022 10:3 0 AM EDT 08/07/2022 10:50 AM EDT [facility] External Provider LAB URI NE ORDERABLES Final Result Performing Organization Address [facility]/ZIP Co de Phone Number [facility] [address] [place] [address] [phone] * hCG, Total, Quantitative (07/31/2022 7:47 PM EDT) HCG Quantitative <2 mIU/mL [facility] Comment:Weeks post LMP Appro ximate hCG(Last Menstrual Period) Range (mIU/ml)3 - 4 weeks 9 - 1304 - 5 weeks 75 - 2,6005 - 6 weeks 850 - 20,8006 - 7 weeks 4000 - 100,2007 - 12 weeks 11,500 - 289,84792 - 16 weeks 18,300 - 137,41489 - 29 weeks (2nd trimester) 1,400 - 53,54664 - 41 weeks (3rd trimester) 940 - 60,000The Moralez B- hCG assay is used for the early detection ofpregnancy; it cannot be used to diagnose any conditionunrelated to . If a B-hCG level is not supportedby the clinical evidence, results should be confirmed by analternative method (qualitative urine hCG, for example). 07/31/2022 7:47 PM EDT 07/31/2022 7:51 PM EDT Narrative [facility] - 07/31/2022 8:21 PM EDT (PST) [facility] External Provider LAB BLO OD ORDERABLES Final Result Performing Organization Address [facility] Co de Phone Number [facility] [address] [place] [phone] * Lipase (07/31/2022 2:29 PM EDT) Lipase 22 8 - 78 U/L [facility] 07/31/2022 2:29 PM EDT 07/31/2022 2:35 PM EDT [facility] External Provider LAB BLO OD ORDERABLES Final Result Performing Organization Address [facility] Co de Phone Number [facility] [address] [place] [phone] * Magnesium (07/31/2022 2:29 PM EDT) Magnesium 2.2 1.6 - 2.6 mg/dL [facility] 07/31/2022 2:29 PM EDT 07/31/2022 2:35 PM EDT [facility] External Provider LAB BLO OD ORDERABLES Final Result Performing Organization Address City/[facility]/ZIP Co de Phone Number [facility] [address] [place] [address] [phone] * Basic Metabolic Panel (07/31/2022 2:29 PM EDT) Sodium 141 135 - 145 mmol/L [facility] Potassium 4.4 3.3 - 5.1 mmol/L [facility] Chloride 108 96 - 108 mmol/L [facility] Carbon Dioxide 25 22 - 29 mmol/L [facility] Anion Gap 12 12 - 20 [facility] Urea Nitrogen (BUN) 10 9 - 16 mg/dL [facility] Creatinine, Serum 0.74 0.5 - 1.4 mg/dL [facility] Creatinine Clr Calc Pharmacy 98.6 [facility] Comment:Provided height and weight: 157.48 cm,89.3 kg.eGFR (calculated from the MDRD study equation) and eCrCl(calculated from the Cockcroft-Gault equation) are based ondifferent parameters and may not yield comparable results.If eCrCl result is absurd, please check patient'sheight/weight. Estimated Glomerular Filt Rate >60 [facility] Comment:NOTE: For -Am erican individuals, multiply the result by 1.210.Chronic Kidney Disease: Estimated GFR < 60 mL/min/1.32t3Quklyi Kidney Disease: Estimated GFR < 15 mL/min/1.73m2 Glucose 104 60 - 115 mg/dL [facility] Calcium 9.8 8.4 - 10.2 mg/dL [facility] 07/31/2022 2:29 PM EDT 07/31/2022 2:35 PM EDT [facility] External Provider LAB BLO OD ORDERABLES Final Result Performing Organization Address [facility]/ZIP Co de Phone Number [facility] [address] [place] [address] [phone] * Hepatic Function Panel (07/31/2022 2:29 PM EDT) Pathologist [facility] Bilirubin, Total 0.5 0.0 - 1.0 mg/dL [facility] Bilirubin, Direct 0.1 0.0 - 0.5 mg/dL [facility] Aspartate Amino Transferase 22 5 - 31 U/L [facility] Alanine Aminotransferase 24 0 - 31 U/L [facility] Total Protein 7.5 6.5 - 8.0 g/dL [facility] Albumin Level 4.3 3.5 - 5.0 g/dL [facility] Alkaline Phosphatase 69 39 - 117 U/L [facility] 07/31/2022 2:29 PM EDT 07/31/2022 2:35 PM EDT [facility] External Provider LAB BLO OD ORDERABLES Final Result Performing Organization Address City/State/[facility] Co de Phone Number [facility] [address] [place] [phone] * (ABNORMAL) Complete Blood Count Manual Diff (07/31/2022 2:29 PM EDT) [facility] White Blood Count 10.0 4.8 - 10.8 X10*3/uL [facility] Red Blood Count 4.89 4.20 - 5.50 X10*6/uL [facility] Hemoglobin 13.5 12.0 - 16.0 g/dl [facility] Hematocrit 41.4 37.0 - 47.0 % [facility] Mean Corpuscular Volume 84.7 80.0 - 98.0 fL [facility] Mean Corpuscular Hemoglobin 27.6 27.0 - 33.0 pg [facility] Mean Corpuscular HGB Conc 32.6 31.0 - 35.0 g/dl [facility] Red Cell Distribution Width 14.4 11.0 - 16.0 % [facility] Platelet Count 322 160 - 400 X10*3/uL [facility] Mean Platelet Volume 9.4 9.4 - 12.3 fL [facility] NRBC Pct Auto 0.0 0.0 - 0.2 /100WBC [facility] NRBC Abs Auto 0.000 0.0 - 0.012 X10*3/uL [facility] Neutrophils % Manual 58 45 - 73 % [facility] Band Neutrophils Percent 1(L) 3 - 5 % [facility] Lymphocytes Percent Manual 30 20 - 40 % [facility] Monocytes Percent Manual 6 2 - 11 % [facility] EOSINOPHILS % MANUAL 5(H) 0 - 4 % [facility] NEUTROPHILS ABSOLUTE MANUAL 5.9 2.0 - 8.3 X10*3/uL [facility] LYMPHOCYTES ABSOLUTE MANUAL 3.0 1.2 - 4.9 X10*3/uL [facility] MONOCYTES ABSOLUTE MANUAL 0.6 0.1 - 1.2 X10*3/uL [facility] EOSINOPHILS ABSOLUTE MANUAL 0.5(H) 0.0 - 0.4 X10*3/uL [facility] Platelet Estimate NORMAL NORMAL [facility] Platelet Morphology Comment NORMAL [facility] RBC Morphology NOTED [facility] Ovalocytes 1+ (5-14) /OIF [facility] Acanthocytes 2+ (3-5) /[facility] 07/31/2022 2:29 PM EDT 07/31/2022 2:35 PM EDT us [facility] External Provider LAB BLO OD ORDERABLES Final Result [facility] [address] [place] [address] [phone] * (ABNORMAL) Urinalysis, Complete, with Reflex to Culture (07/31/2022 2:29 PM EDT) Color Urine Yellow [facility] Appearance Urine Clear [facility] PH 6.5 5.0 - 9.0 [facility] Glucose Urine UA Negative Negative mg/dL [facility] Urine Blood Moderate (2+)(A) Negative [facility] Specific [place] - Urine <=1.005 1.005 - 1.025 [facility] Urine Protein Trace Neg-Trace mg/dL [facility] Urine Ketones Negative Negative mg/dL [facility] Nitrite Urine Negative Negative [facility] Leukocyte Esterase Urine Trace(A) Negative [facility] RBC Urine 3-5(A) 0 - 2 /HPF [facility] Urine WBC 0-5 0 - 5 /HPF [facility] Urine Squamous Epithelial Cell 3-5 0 - 2 /HPF [facility] Urine Bacteria None Seen None Seen [facility] Hyaline Casts, Urine 0-2 0 - 2 /LPF [facility] 07/31/2022 2:29 PM EDT 07/31/2022 2:35 PM EDT Narrative [facility] - 07/31/2022 3:14 PM EDT [id number], Clean Catch [facility] External Provider LAB URI NE ORDERABLES Final Result Performing Organization Address City/[facility]/ZIP Co de Phone Number [facility] [address] [place] [phone] * Lactic Acid (07/16/2022 10:07 AM EDT) Lactic Acid 1.5 0.5 - 2.0 mmol/L [facility] 07/16/2022 10:0 7 AM EDT 07/16/2022 10:12 AM EDT [facility] External Provider LAB BLO OD ORDERABLES Final Result Performing Organization Address [facility] Co de Phone Number [facility] [address] [place] [phone] * (ABNORMAL) Urinalysis, Complete, with Reflex to Culture (07/16/2022 9:49 AM EDT) Color Urine Yellow [facility] Appearance Urine Cloudy [facility] PH 6.0 5.0 - 9.0 [facility] Glucose Urine UA Negative Negative mg/dL [facility] Urine Blood Large (3+)(A) Negative [facility] Specific [place] - Urine 1.015 1.005 - 1.025 [facility] Urine Protein 300 (3+)(A) Neg-Trace mg/dL [facility] Urine Ketones Negative Negative mg/dL [facility] Nitrite Urine Negative Negative [facility] Leukocyte Esterase Urine Large (3+)(A) Negative [facility] RBC Urine 3-5(A) 0 - 2 /HPF [facility] Urine WBC >50(A) 0 - 5 /HPF [facility] Urine Squamous Epithelial Cell 0-2 0 - 2 /HPF [facility] Urine Bacteria 4+ None Seen [facility] Hyaline Casts, Urine 3-5 0 - 2 /LPF [facility] 07/16/2022 9:49 AM EDT 07/16/2022 9:52 AM EDT Narrative [facility] - 07/16/2022 10:06 AM EDT [id number], Clean Catch [facility] External Provider LAB URI NE ORDERABLES Final Result Performing Organization Address City/[facility] Co de Phone Number [facility] [address] [place] [phone] * Magnesium (07/16/2022 7:42 AM EDT) Magnesium 1.8 1.6 - 2.6 mg/dL [facility] 07/16/2022 7:42 AM EDT 07/16/2022 7:45 AM EDT [facility] External Provider LAB BLO OD ORDERABLES Final Result Performing Organization Address [facility] Co de Phone Number [facility] [address] [place] [address] [phone] * (ABNORMAL) Basic Metabolic Panel (07/16/2022 7:42 AM EDT) Sodium 137 135 - 145 mmol/L [facility] Potassium 4.4 3.3 - 5.1 mmol/L [facility] Comment:Slight Hemolysis Chloride 106 96 - 108 mmol/L [facility] Carbon Dioxide 19(L) 22 - 29 mmol/L [facility] Anion Gap 16 12 - 20 [facility] Urea Nitrogen (BUN) 11 9 - 16 mg/dL [facility] Creatinine, Serum 0.80 0.5 - 1.4 mg/dL [facility] Creatinine Clr Calc Pharmacy 91.5 [facility] Comment:Provided height and weight: 157.48 cm,89.811 kg.eGFR (calculated from the MDRD study equation) and eCrCl(calculated from the Cockcroft-Gault equation) are based ondifferent parameters and may not yield comparable results.If eCrCl result is absurd, please check patient'sheight/weight. Estimated Glomerular Filt Rate >60 [facility] Comment:NOTE: For -Am erican individuals, multiply the result by 1.210.Chronic Kidney Disease: Estimated GFR < 60 mL/min/1.32h7Egrxcf Kidney Disease: Estimated GFR < 15 mL/min/1.73m2 Glucose 138(H) 60 - 115 mg/dL [facility] Calcium 9.4 8.4 - 10.2 mg/dL [facility] 07/16/2022 7:42 AM EDT 07/16/2022 7:45 AM EDT us [facility] External Provider LAB BLO OD ORDERABLES Final Result [facility] [address] [place] [phone] * Hepatic Function Panel (07/16/2022 7:42 AM EDT) Pathologist [facility] Bilirubin, Total 0.4 0.0 - 1.0 mg/dL [facility] Bilirubin, Direct 0.1 0.0 - 0.5 mg/dL [facility] Comment:Slight Hemolysis Aspartate Amino Transferase 21 5 - 31 U/L [facility] Comment:Slight Hemolysis Alanine Aminotransferase 22 0 - 31 U/L [facility] Total Protein 7.3 6.5 - 8.0 g/dL [facility] Albumin Level 4.2 3.5 - 5.0 g/dL [facility] Alkaline Phosphatase 64 39 - 117 U/L [facility] 07/16/2022 7:42 AM EDT 07/16/2022 7:45 AM EDT us [facility] External Provider LAB BLO OD ORDERABLES Final Result [facility] [address] [place] [phone] * (ABNORMAL) CBC auto differential (07/16/2022 7:42 AM EDT) Pathologist [facility] White Blood Count 15.8(H) 4.8 - 10.8 X10*3/uL [facility] Red Blood Count 4.63 4.20 - 5.50 X10*6/uL [facility] Hemoglobin 12.9 12.0 - 16.0 g/dl [facility] Hematocrit 38.4 37.0 - 47.0 % [facility] Mean Corpuscular Volume 82.9 80.0 - 98.0 fL [facility] Mean Corpuscular Hemoglobin 27.9 27.0 - 33.0 pg [facility] Mean Corpuscular HGB Conc 33.6 31.0 - 35.0 g/dl [facility] Red Cell Distribution Width 14.4 11.0 - 16.0 % [facility] Platelet Count 308 160 - 400 X10*3/uL [facility] Mean Platelet Volume 9.6 9.4 - 12.3 fL [facility] Neutrophils Percent Auto 76.3(H) 45 - 73 % [facility] Imm Gran Pct Auto 0.4 0.0 - 0.4 % [facility] Lymphocytes Percent Auto 15.5(L) 20 - 40 % [facility] Monocytes Percent Auto 7.2 2 - 11 % [facility] Eosinophils Percent Auto 0.1 0 - 4 % [facility] Basophils Percent Auto 0.5 0 - 2 % [facility] NRBC Pct Auto 0.0 0.0 - 0.2 /100WBC [facility] Neutrophils Absolute Auto 12.1(H) 2.0 - 8.3 x10*3/uL [facility] Imm Gran Abs Auto 0.06(H) 0.00 - 0.03 X10*3/uL [facility] Lymphocytes Absolute Auto 2.5 1.2 - 4.9 X10*3/uL [facility] Monocytes Absolute Auto 1.1 0.1 - 1.2 X10*3/uL [facility] Eosinophils Absolute Auto 0.0 0.0 - 0.4 X10*3/uL [facility] Basophils Absolute Auto 0.1 0.0 - 0.2 X10*3/uL [facility] NRBC Abs Auto 0.000 0.0 - 0.012 X10*3/uL [facility] 07/16/2022 7:42 AM EDT 07/16/2022 7:45 AM EDT us [facility] External Provider LAB BLO OD ORDERABLES Final Result [facility] [address] [place] [address] [phone] documented in this encounter Visit Diagnoses Not on filedocumented in this encounter Care Teams Cotton Roll Packer Relationship Specialty Start Date End Date Alex Sheriff MD [address] [place] [phone] PCP - General Internal Medicine 02/25/13 documented as of this encounter
--- OUTSIDE RECORDS SUMMARY | 2025-02-04 16:39 | XMS_ITS | Encounter Summary ---
Author Organization [employer] Address [address] [place] [address] 7 [place] [address] Care Team Providers Care Cell Attendant Name Role Phone Alex Sheriff MD Primary Care Provider [phone] Encounter Details Date Type Department Care Team (Late st Contact Info) Description 10/05/2022 Orders Only [facility] MED [facility] PEDS [address] [place], [place] [phone] Alex Sheriff MD [address] [place], [place] [phone] Chronic migraine without aura with status migrainosus, [...] Primary documented in this encounter Care Teams Cell Attendant Relationship Specialty Start Date End Date Alex Sheriff MD [address] [place] [address] PCP - General Internal Medicine 02/25/13 documented as of this encounter
--- OUTSIDE RECORDS SUMMARY | 2025-02-04 16:39 | XMS_ITS | Encounter Summary ---
Author Organization [employer] Address [address] [facility] [address]t [place] [address] Care Team Providers Care Counter Help Name Role Phone Alex Sheriff MD Primary Care Provider [phone] Encounter Details Date Type Department Care Team (Latest Contact Info) Description 02/03/2025 Travel Social History Tobacco Use Types Packs/Day [...] documented as of this encounter Care Teams Counter Help Relationship Specialty Start Date End Date Alex Sheriff MD [address] [place] [address] PCP - General Internal Medicine 02/25/13 documented as of this encounter
--- OUTSIDE RECORDS SUMMARY | 2025-02-04 16:39 | XMS_ITS | Encounter Summary ---
Author Organization [employer] Address [address] [place] [address] 7 [place] [address] Care Team Providers Care Web Content Writer Name Role Phone Alex Sheriff MD Primary Care Provider [phone] Encounter Details Date Type Department Care Team (Late st Contact Info) Description 09/14/2022 Orders Only [facility] [address] [place] [address] Alex Sheriff MD [address] [place] [address] Chronic migraine without aura without status migrainosus, [...] Primary documented in this encounter Care Teams Web Content Writer Relationship Specialty Start Date End Date Alex Sheriff MD [address] [place] [address] PCP - General Internal Medicine 02/25/13 documented as of this encounter
--- OUTSIDE RECORDS SUMMARY | 2025-02-04 16:39 | XMS_ITS | Encounter Summary ---
Author Organization [employer] Address [address] [facility] 7 [place] [address] Care Team Providers Care Assembly Technician Name Role Phone Alex Sheriff MD Primary Care Provider [phone] Reason for Visit * Reason Comments Med Refill Encounter Details Date Type Department Care Team ([facility] st Contact Info) Description 12/23/2023 Refill [facility]EDS [address] [place], [place] [phone] Alex Sheriff MD [address] [place] [address] Cerumen debris on tympanic membrane of left [...] ear documented in this encounter Care Teams Assembly Technician Relationship Specialty Start Date End Date Alex Sheriff MD [address] [place] [phone] PCP - General Internal Medicine 02/25/13 documented as of this encounter
--- OUTSIDE RECORDS SUMMARY | 2025-02-04 16:39 | XMS_ITS | Encounter Summary ---
Author Organization [employer] Address [address] [facility] [address] [place] [address] Care Team Providers Care Cup Trimming Machine Operator Name Role Phone Alex Sheriff MD Primary Care Provider [phone] Encounter Details Date Type Department Care Team (Late st Contact Info) Description 10/06/2024 Orders Only [facility]EDS [address] [place], [place] [phone] Provider, MD Ariella Social History Tobacco Use [...] AM EDT Narrative 11/02/2024 6:10 PM EDT [facility] [address] [place] [address] Mammography Report Signed Patient: Tank Khan MR#: [id number] : 1975 Acct:[id number] Age/Sex: 49 / F ADM Date: 10/29/24 Loc: HO.MAMMO Attending Dr: Alex Sheriff MD Ordering Physician: Alex Sheriff MD Results: 1 Negative Date of Service: 10/29/24 Follow Up: 1 Year From Orig inal Mammogram Procedure(s): MM tomosynthesis screening BI Accession Number(s): [id number] cc: Alex Sheriff MD Reason For Exam: [...] 11/02/24 1807 DD/ 1145 TD/TT: 10/29/24 1210 Platform Mill Supervisor: Procedure Note Donotuseinterpreter, Image - [facility]/02/[facility] [address] [place] [address] Mammography Report Signed Patient: Tank Khan MR#: [id number] : 1975Acct:[id number] Age/Sex: 49 / FADM Date: 10/29/24 Loc: HO.MAMMO Attending Dr: Alex Sheriff MD Ordering Physician: Alex Sheriff MDResults: 1 Negative Date of Service: 10/29/24Follow Up: 1 Year From Orig inal Mammogram Procedure(s): MM tomosynthesis screening BI Accession Number(s): [id number] cc: Alex Sheriff MD Reason For Exam: [...] 11/02/24 1807 DD/ 1145 TD/TT: 10/29/24 1210 [employer] Mill Supervisor: us Alex ULLOAG BI PROCEDURES Final Res [...] documented as of this encounter Care Teams Cup Trimming Machine Operator Relationship Specialty Start Date End Date Alex Sheriff MD [address] [place] [address] PCP - General Internal Medicine 02/25/13 documented as of this encounter
--- OUTSIDE RECORDS SUMMARY | 2025-02-04 16:39 | XMS_ITS | Clinical Summary ---
Author Organization [facility] Facility Address [address] [place] [address], [place] [address] Care Team Providers Care Hotel Night Auditor Name Role Phone Alex Sheriff MD Primary Care Provider [phone] Allergies Active Allergy Reactions Criticality Noted Date Comments Morphine And Codeine 04/14/2020 Medications lisinopril (PRINIVIL,ZESTR IL) 40 MG tabletIndicatio ns:Hypertension Take 1 tablet by mouth 1 (one) time each day Active dilTIAZem (TIAZAC) 300 MG 24 hr capsuleIndicati ons:Hypertensio n Take 300 mg by mouth 1 (one) time each day Active butalbital-acet aminophen-caffe ine-codeine (FIORICET WITH CODEINE) 45-982-45-30 MG per capsuleIndicati ons:Hypertensio n Take 1 [...] to complete this topic Insurance [address] [place] [id number] [facility] ([id number]) DONNA EGAN [id number] [facility] ([id number]) DONNA EGAN [phone] Care Teams Hotel Night Auditor Relationship Specialty Start Date End Date Alex Sheriff MD PCP - General 02/29/20
--- OUTSIDE RECORDS SUMMARY | 2025-02-04 16:39 | XMS_ITS | Encounter Summary ---
Author Organization [employer] Address [address] [place] [address] Care Team Providers Care Airline Station Agent Name Role Phone Alex Sheriff MD Primary Care Provider [phone] Reason for Visit * Reason Onset Date Comments Hospital Follow-up 08/07/2024 Encounter Details Date Type Department Care Team ([facility] st Contact Info) Description 08/07/2024 Telephone [facility] [address] [place] [address] Alex Sheriff MD [address] [place] [id number] Hospital Follow-up Social History Tobacco Use Types [...] from pt requesting a HDF appt. Hospital: [facility] Date of admission: 08/02/24 Discharge date: 08/05/24 Diagnosed: [email or web address] documented in this encounter Plan of Treatment Not on file documented as of this encounter Visit Diagnoses Not on filedocumented in this encounter Additional Health Concerns Assessment Noted Time PHQ-9 Depression Total Score: 6 04/24/19 1:43 PM EST documented as of this encounter Care Teams Airline Station Agent Relationship Specialty Start Date End Date Alex Sheriff MD [address] [place] [phone] PCP - General Internal Medicine 02/25/13 documented as of this encounter
== END 2025-02-04 13:18 | disposition home or self-care (01) ==
LOC: HO.HWS 12:47
PROVIDERS: PCP Internal Medicine; Visit Provider Advanced Practice Midwife
DX: Z01.419 Encounter for gynecological examination (general) (routine) without abnormal findings (principal)
CPT/HCPCS: 99396; 99459

== ENCOUNTER → 2025-02-04 12:47 | Outpatient (BNVA) | payer OTHER, SELFPAY | PROVIDERS: PCP Internal Medicine; Visit Provider Advanced Practice Midwife | DX: Z01.419 Encounter for gynecological examination (general) (routine) without abnormal findings (principal); Z98.51 Tubal ligation status | CPT/HCPCS: 99396 ==